=== PATIENT | male | born 1935 | race Caucasian/White ===

== ENCOUNTER 2017-02-23 19:56 | Inpatient (IN) | payer MEDICARE, OTHER ==
[2017-02-23] MEDS ORDERED: SODIUM CHLORIDE 0.9% 1,000 ML IV STA (20:15)
[2017-02-23] MEDS ORDERED: ACETAMINOPHEN TAB 325 MG TAB PO STA (20:15)
[2017-02-23] MEDS ORDERED: ONDANSETRON 4 MG/2 ML VIAL IVP STA (20:16)
[2017-02-23 20:33] LABS: Basophils % (A) 0 %; Eosinophils # (A) 0.1 k/uL (0-0.7); Eosinophils % (A) 1 %; HCT 36.9 % (39.0-53.0); HGB 11.4 gm/dL (13.0-17.5); Hypochromasia Slight; Lymphocytes # (A) 0.8 k/uL (1.0-4.8); Lymphocytes % (A) 8 %; MCH 26.8 pg (25.0-35.0); MCV 86.3 fL (80.0-100.0); Mean Platelet Volume 8.2; Monocytes # (A) 0.3 k/uL (0-1.0); Monocytes % (A) 3 %; Neutrophils # (A) 8.7 k/uL (1.3-7.7); Neutrophils % (A) 87 %; Platelet Count 226 k/uL (150-450); RBC 4.28 m/uL (4.30-5.90); RDW 15.3 % (11.5-15.5)
[2017-02-23 20:49] LABS: ALT 36 U/L (21-72); AST 25 U/L (17-59); Albumin 3.4 g/dL (3.5-5.0); Alkaline Phosphatase 60 U/L (38-126); Anion Gap 9 mmol/L; Blood Urea Nitrogen 17 mg/dL (9-20); Calcium 8.3 mg/dL (8.4-10.2); Carbon Dioxide 24 mmol/L (22-30); Chloride 102 mmol/L (98-107); Glucose 117 mg/dL (74-99); Magnesium 1.9 mg/dL (1.6-2.3); Potassium 4.4 mmol/L (3.5-5.1); Sodium 135 mmol/L (137-145); Total Bilirubin 0.8 mg/dL (0.2-1.3); Total Protein 6.4 g/dL (6.3-8.2)
--- NOTE | 2017-02-23 21:33 | ED ---
General Adult HPI - General Chief complaint: Nausea/Vomiting/Diarrhea Stated complaint: Nausea/Vomiting Time Seen by Provider: 02/23/17 19:58 Source: patient, EMS, RN notes reviewed Mode of arrival: EMS Limitations: no limitations - History of Present Illness Initial comments: This is an 81-year-old male presents emergency Department chief complaint of weakness. Patient states that he has not felt well today states that symptoms get worse throughout the day and felt that he needed be evaluated. Patient states he 1 episode of nausea and vomiting he states this is only after he tried taking aspirin for fever and states that one of the pills got stuck in his throat. He states he is nauseated. Denies any diarrhea, constipation, abdominal pain. Denies any chest pain or shortness of breath other than usual. 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 Patient states has had some episodes of nausea vomiting a few days ago. Patient states he has a slight cough but no the usual. Patient denies any ear pain, sore throat. - Related Data Home Medications Medication Instructions Recorded Confirmed Aspirin 81 mg PO HS 06/02/14 02/13/16 Citalopram Hydrobromide [CeleXA] 20 mg PO HS 06/02/14 02/13/16 Fluticasone/Salmeterol [Advair 1 puff INHALATION RT-BID 06/02/14 02/13/16 500-50 Diskus] Tamsulosin [Flomax] 0.4 mg PO HS 06/02/14 02/13/16 Tiotropium [place] [Spiriva] 2 puff INHALATION RT-DAILY 06/02/14 02/13/16 Simvastatin [Zocor] 10 mg PO HS 08/27/14 02/13/16 Multivit-Mins/Iron/Folic/Lycop 1 tab PO DAILY 06/19/15 02/13/16 [Centrum Men's Tablet] Ascorbic Acid [Vitamin C] 500 mg PO DAILY 02/13/16 02/13/16 Vitamin B Complex 1 cap PO DAILY 02/13/16 02/13/16 guaiFENesin-DM 600/30MG [Mucinex 1 tab PO DAILY 02/13/16 02/13/16 Dm] predniSONE 10 mg PO DAILY 02/13/16 02/13/16 Previous Rx's Medication Instructions Recorded Azithromycin [Zithromax Z-pack] 250 mg PO DIRECTED #6 tab 02/13/16 Levofloxacin [Levaquin] 500 mg PO DAILY #7 tab 02/13/16 predniSONE 20 mg PO BID #8 tab 02/13/16 Allergies Allergy/AdvReac Type Severity Reaction Status Date / Time No Known Allergies Allergy Verified 02/23/17 20:06 Review of Systems ROS Statement: Those systems with pertinent positive or pertinent negative responses have been documented in the HPI. ROS Other: All systems not noted in ROS Statement are negative. Past Medical History Past Medical History: Cancer, COPD, Hyperlipidemia, Pneumonia, Prostate Disorder Additional Past Medical History / Comment(s): hx prostate cancer HAD 28 RADIATION [place] AND SEED IMPLANTS, uses home O2. 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, SEED IMPLANTS FOR PROSTATE CA 2007 Past Anesthesia/Blood Transfusion Reactions: No Reported Reaction Past Psychological History: No Psychological Hx Reported Smoking Status: Former smoker Past Alcohol Use History: None Reported Past Drug Use History: None Reported - Past Family History Father Family Medical History: Cancer Additional Family Medical History / Comment(s): spine CA which spread to bone CA General Exam Limitations: no limitations General appearance: alert, in no apparent distress Head exam: Present: atraumatic, normocephalic, normal inspection Eye exam: Present: normal appearance, PERRL, EOMI. Absent: scleral icterus, conjunctival injection, periorbital swelling ENT exam: Present: normal exam, normal oropharynx (Dentures noted), mucous membranes moist, TM's normal bilaterally, normal external ear exam Neck exam: Present: normal inspection, full ROM. Absent: tenderness, meningismus, lymphadenopathy Respiratory exam: Present: normal lung sounds bilaterally. Absent: respiratory distress, wheezes, rales, rhonchi, stridor Cardiovascular Exam: Present: normal rhythm, tachycardia, normal heart sounds. Absent: systolic murmur, diastolic murmur, rubs, gallop, clicks GI/Abdominal exam: Present: soft, normal bowel sounds. Absent: distended, tenderness, guarding, rebound, rigid Neurological exam: Present: alert, oriented X3, CN II-XII intact Skin exam: Present: warm, dry, intact, normal color. Absent: rash Course Vital Signs 02/23/17 19:58 Temperature 101.4 F H Pulse Rate 111 H Respiratory 20 Rate Blood Pressure 125/70 O2 Sat by Pulse 92 L Oximetry EKG Findings - EKG Comments: EKG Findings:: EKG performed at 20:26 sinus tachycardia with a rate of 103 CA 144 QRS 88 QT/QTC 354/463 Medical Decision Making - Medical Decision Making 81-year-old male present emergency department for fever not feeling well. Patient's found to have right lobe pneumonia. Patient was started antibiotics, admitted For a consult as he has chronic respiratory issues. Patient is oxygen dependent. - Lab Data Result diagrams: 02/23/17 20:09 02/23/17 20:09 Lab Results 02/23/17 02/23/17 02/23/17 Range/Units 20:09 20:09 20:09 WBC 10.0 (3.8-10.6) k/uL RBC 4.28 L (4.30-5.90) m/uL Hgb 11.4 L (13.0-17.5) gm/dL Hct 36.9 L (39.0-53.0) % MCV 86.3 (80.0-100.0) fL MCH 26.8 (25.0-35.0) pg MCHC 31.0 (31.0-37.0) g/dL RDW 15.3 (11.5-15.5) % Plt Count 226 (150-450) k/uL Neutrophils % 87 % Lymphocytes % 8 % Monocytes % 3 % Eosinophils % 1 % Basophils % 0 % Neutrophils # 8.7 H (1.3-7.7) k/uL Lymphocytes # 0.8 L (1.0-4.8) k/uL Monocytes # 0.3 (0-1.0) k/uL Eosinophils # 0.1 (0-0.7) k/uL Basophils # 0.0 (0-0.2) k/uL Hypochromasia Slight Sodium 135 L (137-145) mmol/L Potassium 4.4 (3.5-5.1) mmol/L Chloride 102 (98-107) mmol/L Carbon Dioxide 24 (22-30) mmol/L Anion Gap 9 mmol/L BUN 17 (9-20) mg/dL Creatinine 0.70 (0.66-1.25) mg/dL Est GFR (MDRD) Af Amer >60 (>60 ml/min/1.73 sqM) Est GFR (MDRD) Non-Af >60 (>60 ml/min/1.73 sqM) Glucose 117 H (74-99) mg/dL Plasma Lactic Acid Giovanni (0.7-2.0) mmol/L Calcium 8.3 L (8.4-10.2) mg/dL Magnesium 1.9 (1.6-2.3) mg/dL Total Bilirubin 0.8 (0.2-1.3) mg/dL AST 25 (17-59) U/L ALT 36 (21-72) U/L Alkaline Phosphatase 60 (38-126) U/L Troponin I (0.000-0.034) ng/mL Total Protein 6.4 (6.3-8.2) g/dL Albumin 3.4 L (3.5-5.0) g/dL Influenza Type A RNA Not Detected (Not Detectd) Influenza Type B (PCR) Not Detected (Not Detectd) 02/23/17 02/23/17 Range/Units 20:09 20:09 WBC (3.8-10.6) k/uL RBC (4.30-5.90) m/uL Hgb (13.0-17.5) gm/dL Hct (39.0-53.0) % MCV (80.0-100.0) fL MCH (25.0-35.0) pg MCHC (31.0-37.0) g/dL RDW (11.5-15.5) % Plt Count (150-450) k/uL Neutrophils % % Lymphocytes % % Monocytes % % Eosinophils % % Basophils % % Neutrophils # (1.3-7.7) k/uL Lymphocytes # (1.0-4.8) k/uL Monocytes # (0-1.0) k/uL Eosinophils # (0-0.7) k/uL Basophils # (0-0.2) k/uL Hypochromasia Sodium (137-145) mmol/L Potassium (3.5-5.1) mmol/L Chloride (98-107) mmol/L Carbon Dioxide (22-30) mmol/L Anion Gap mmol/L BUN (9-20) mg/dL Creatinine (0.66-1.25) mg/dL Est GFR (MDRD) Af Amer (>60 ml/min/1.73 sqM) Est GFR (MDRD) Non-Af (>60 ml/min/1.73 sqM) Glucose (74-99) mg/dL Plasma Lactic Acid Giovanni 1.0 (0.7-2.0) mmol/L Calcium (8.4-10.2) mg/dL Magnesium (1.6-2.3) mg/dL Total Bilirubin (0.2-1.3) mg/dL AST (17-59) U/L ALT (21-72) U/L Alkaline Phosphatase (38-126) U/L Troponin I <0.012 (0.000-0.034) ng/mL Total Protein (6.3-8.2) g/dL Albumin (3.5-5.0) g/dL Influenza Type A RNA (Not Detectd) Influenza Type B (PCR) (Not Detectd) Disposition Clinical Impression: Pneumonia, Hypoxia, Acute exacerbation of chronic obstructive airways disease Disposition: ADMITTED IP TO THIS HOSP Condition: Fair Referrals: Lily Carolina MD [Primary Care Provider] - 1-2 days
--- NOTE | 2017-02-23 21:43 | XR ---
EXAMINATION TYPE: XR chest 2V DATE OF EXAM: 02/23/2017 COMPARISON: Chest x-ray February 13, 2016 HISTORY: History of COPD with cough and fever. TECHNIQUE: Frontal and lateral views of the chest are obtained. FINDINGS: There is advanced emphysematous change with new patchy right basilar opacity. There are s cattered areas of scarring. No large pleural effusion or pneumothorax is seen bilaterally. The cardia c silhouette size is within normal limits. The osseous structures are demineralized. IMPRESSION: Advanced emphysematous change with new right basilar infiltrate and/or atelectasis.
[2017-02-23] MEDS ORDERED: PNEUMONIA PROTOCOL UTILIZED 1 EACH MISC PO PRN (22:21)
[2017-02-23] MEDS ORDERED: LEVOFLOXACIN 750MG-D5W PMX 750 MG in DEXTROSE/WATER 1 150ML.BAG IVPB STA (22:21)
[2017-02-23] MEDS ORDERED: IPRATROPIUM-ALBUTEROL 3 ML NEB INHALATION PRN (22:21)
[2017-02-23] MEDS ORDERED: methylPREDNISolone SOD SUCCI 125 MG/2 ML VIAL IV STA (22:23)
[2017-02-24 01:27] LABS: Appearance,Urine Clear (Clear); Bilirubin,Urine Negative (Negative); Blood,Urine Negative (Negative); Color,Urine Yellow; Glucose,Urine (UA) Negative (Negative); Ketones,Urine Negative (Negative); Leukocyte Esterase,Urine Negative (Negative); Nitrite,Urine Negative (Negative); Protein,Urine Trace (Negative); Specific Gravity,Urine 1.022 (1.001-1.035)
--- NOTE | 2017-02-24 07:13 | XR ---
EXAMINATION TYPE: XR chest 2V DATE OF EXAM: 02/24/2017 HISTORY: pneumonia. REFERENCE: Previous study dated 02/23/2017. FINDINGS: The lungs are overinflated. There is chronic interstitial change. There is right basilar in filtrate. This is improved slightly from yesterday study. There is blunting of the right CP angle. I could not exclude a tiny right effusion. The heart is not enlarged. IMPRESSION: 1. COPD. 2. INTERSTITIAL FIBROSIS. 3. RESOLVING RIGHT BASILAR INFILTRATE VERSUS TINY ASSOCIATED EFFUSION.
[2017-02-24] MEDS ORDERED: ALPRAZolam 0.25 MG TAB PO PRN (10:38)
[2017-02-24] MEDS ORDERED: TEMAZEPAM 15 MG CAP PO PRN (10:38)
[2017-02-24] MEDS ORDERED: HYDROcodone/APAP 5-325MG 1 EACH TAB PO PRN (10:38)
[2017-02-24] MEDS ORDERED: OSELTAMIVIR 75 MG CAP PO SCH (11:00)
[2017-02-24] MEDS: IPRATROPIUM-ALBUTEROL 3 ML NEB INHALATION SCH ×3 (11:12→19:46)
[2017-02-24] MEDS ORDERED: IPRATROPIUM 0.5 MG/2.5 ML NEBU INHALATION SCH (12:00)
[2017-02-24] MEDS: guaiFENesin-DM 600/30MG 1 EACH TAB.ER.12H PO SCH (14:06)
[2017-02-24] MEDS: INSULIN ASPART 100 UNIT/ML 1 ML 10 ML VIAL SQ SCH ×3 (14:13→21:29)
--- NOTE | 2017-02-24 14:54 | P.CNPUL ---
History of Present Illness Consult date: 02/24/17 Reason for consult: COPD History of present illness: 81-year-old male patient with known history of COPD, coming in for increased shortness of breath and symptoms typical of an acute COPD exacerbation. He was screened for influenza and the results of been negative. The patient was concerned about underlying pneumonia it's chest x-ray did not show any acute pulmonary infiltrates. Was admitted for a 11 acute COPD exacerbation. No angina. No pleurisy. No hemoptysis. No hypotension. No change in mental status. He has history of [id number] smoking history and he quit smoking many years back. No sick contacts. No travel history. He has had a benign tumor that was resected surgically many years back. No history of any thoracic or lung malignancy. He has been maintained on a combination of Advair and Spiriva. He has also an nebulizer at home. His FEV1 is nor that of 45% of predicted at baseline. Review of Systems Constitutional: Reports fatigue Eyes: denies blurred vision, denies bulging eye, denies decreased vision Ears: deny: decreased hearing, ear discharge, earache Ears, nose, mouth and throat: Denies headache, Denies sore throat Cardiovascular: Reports decreased exercise tolerance, Reports dyspnea on exertion, Reports shortness of breath Respiratory: Reports cough, Reports dyspnea, Reports wheezing Gastrointestinal: Denies abdominal pain, Denies diarrhea, Denies nausea, Denies vomiting Genitourinary: Reports as per HPI Musculoskeletal: Denies myalgias Musculoskeletal: absent: ankle pain, ankle stiffness, ankle swelling Integumentary: Reports as per HPI Neurological: Denies numbness, Denies weakness Past Medical History Past Medical History: Cancer, COPD, Pneumonia, Prostate Disorder Additional Past Medical History / Comment(s): COPD with an FEV1 of 45% of predicted baseline, prostate cancer treated by radiation therapy, previous hospital physician for COPD exacerbation, hyperlipidemia, history of anxiety/ depression History of Any Multi-Drug Resistant Organisms: None Reported Past Surgical History: Appendectomy Additional Past Surgical History / Comment(s): pilonidal cyst, 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, SEED IMPLANTS FOR PROSTATE CA 2007 Past Anesthesia/Blood Transfusion Reactions: No Reported Reaction Past Psychological History: No Psychological Hx Reported Smoking Status: Former smoker Past Alcohol Use History: None Reported Additional Past Alcohol Use History / Comment(s): SMOKED X 40 YEARS 2PPD QUIT 1991 Past Drug Use History: None Reported - Past Family History Father Family Medical History: Cancer Additional Family Medical History / Comment(s): spine CA which spread to bone CA Medications and Allergies Home Medications Medication Instructions Recorded Confirmed Type Aspirin 81 mg PO HS 06/02/14 02/24/17 History Citalopram Hydrobromide [CeleXA] 40 mg PO HS 06/02/14 02/24/17 History Fluticasone/Salmeterol [Advair 1 puff INHALATION RT-BID 06/02/14 02/24/17 History 500-50 Diskus] Tamsulosin [Flomax] 0.4 mg PO HS 06/02/14 02/24/17 History Tiotropium [place] [Spiriva] 1 cap INHALATION RT-DAILY 06/02/14 02/24/17 History Simvastatin [Zocor] 10 mg PO HS 08/27/14 02/24/17 History Multivit-Mins/Iron/Folic/Lycop 1 tab PO DAILY 06/19/15 02/24/17 History [Centrum Men's Tablet] Ascorbic Acid [Vitamin C] 500 mg PO DAILY 02/13/16 02/24/17 History guaiFENesin-DM 600/30MG [Mucinex 1 tab PO DAILY 02/13/16 02/24/17 History Dm] predniSONE 10 mg PO DAILY 02/13/16 02/24/17 History Albuterol Nebulized [Ventolin 2.5 mg INHALATION RT-Q4H PRN 02/24/17 02/24/17 History Nebulized] Calcium Carbonate [Calcium] 600 mg PO DAILY 02/24/17 02/24/17 History Melatonin 3 mg PO HS 02/24/17 02/24/17 History Oseltamivir [Tamiflu] 75 mg PO Q12HR 02/24/17 02/24/17 History busPIRone HCl [Buspar] 5 mg PO BID 02/24/17 02/24/17 History Allergies Allergy/AdvReac Type Severity Reaction Status Date / Time No Known Allergies Allergy Verified 02/24/17 08:19 Physical Exam Vitals: Vital Signs Temp Pulse Pulse Resp BP BP Pulse Ox 02/24/17 11:30 112 H 02/24/17 11:14 104 H 02/24/17 08:00 109 H 17 02/24/17 07:35 108 H 02/24/17 07:27 108 H 02/24/17 07:00 97.9 F 88 16 98/56 94 L 02/23/17 23:32 98.2 F 109 H 17 118/58 92 L 02/23/17 22:39 98.3 F 102 H 24 135/65 96 02/23/17 19:58 101.4 F H 111 H 20 125/70 92 L Intake and Output 02/23/17 02/24/17 02/24/17 22:59 06:59 14:59 Intake Total 150 360 Balance 150 360 Intake: IV 150 Levofloxacin 750Mg-D5w 150 Pmx 750 mg In Dextrose/ Water 1 150ml.bag @ 100 mls/hr IVPB ONCE STA Rx#: [id number] Oral 360 Other: Voiding Method Urinal Urinal # Voids 2 Weight 77.111 kg The patient appeared well nourished and normally developed. Vital signs as documented. Head exam is unremarkable. No scleral icterus or corneal arcus noted. Neck is without jugular venous distension, thyromegaly, or carotid bruits. Carotid upstrokes are brisk bilaterally. Lungs are nourished breath sounds along with some scattered expiratory wheezes throughout the lung pichardo bilaterally Cardiac exam reveals the PMI to be normally sized and situated. Rhythm is regular. First and second heart sounds normal. No murmurs, rubs or gallops. Abdominal exam reveals normal bowel sounds, no masses, no organomegaly and no aortic enlargement. Extremities are nonedematous and both femoral and pedal pulses are normal.Examination of the skin revealed no evidence of significant rashes, suspicious appearing nevi or other concerning lesions. Neurologically the patient is awake and alert and there is no focal logical deficits. Results - Laboratory Findings CBC and BMP: 02/23/17 20:09 02/23/17 20:09 Abnormal lab findings: Abnormal Labs 02/23/17 02/23/17 02/24/17 20:09 20:09 00:12 RBC 4.28 L Hgb 11.4 L Hct 36.9 L Neutrophils # 8.7 H Lymphocytes # 0.8 L Sodium 135 L Glucose 117 H Calcium 8.3 L Albumin 3.4 L Urine Protein Trace H - Diagnostic Findings Chest x-ray: image reviewed Assessment and Plan Plan: Assessment 1 acute COPD exacerbation 2 limited right basilar infiltration, an underlying pneumonia cannot be completely excluded 3 COPD severe with an FEV1 of 45% predicted at baseline 4 prostate cancer treated by radiation therapy 5 chronic anxiety/depression 6 hyperlipidemia maintained on Zocor Plan DuoNeb neb last treatment [id number]. Levaquin as empiric antibiotic coverage. IV Solu-Medrol. Influenza screen was negative and the Tamiflu can be discontinued. We'll continue to follow.
--- NOTE | 2017-02-24 17:15 | HP ---
HISTORY AND PHYSICAL DATE OF ADMISSION: 02/24/2017 CHIEF COMPLAINT: Shortness of breath and cough. HISTORY OF PRESENT ILLNESS: This 81-year-old gentleman with a past medical history of COPD, history of pneumonia, history of sepsis, history of FEV1 of 45%, history of prostate cancer, being followed by Dr. Carolina in the outpatient setting, not feeling well over the past several days, apparently the patient's was also sick with vomiting, cough and sputum with flu and subsequently patient was very sick and patient empirically started on Tamiflu. Currently patient increased shortness of breath and cough and sputum and GI symptoms and patient admitted to the hospital for further evaluation and treatment. Bilateral pneumonia right more the left was suspected. Patient started on broad-spectrum IV antibiotics. There is no history of fever, rigors or chills. No history of headache, loss of consciousness, seizures. PAST MEDICAL HISTORY: COPD, pneumonia, prostate disorder, appendectomy. MEDICATIONS: Prior to admission include home medications are: 1. Calcium 600 mg p.o. daily. 2. Ventolin 2.5 q.4h p.r.n. 3. Prednisone 10 mg daily. 4. Mucinex 1 tab p.o. b.i.d. 5. Buspar 5 mg p.o. b.i.d. 6. Spiriva 1 puff daily. 7. Flomax 0.4 q.h.s. 8. Zocor 10 mg q.h.s. 9. Tamiflu 75 mg b.i.d. 10.Centrum 1 p.o. daily. 11.Melatonin 3 mg q.h.s. 12.Advair 500/50 1 puff b.i.d. 13.Celexa 40 mg q.h.s. 14.Aspirin 81 mg. 15.Vitamin C 500 mg daily. ALLERGIES: None. FAMILY HISTORY: History of cancer, spine cancer, suspected bone cancer. SOCIAL HISTORY: Previous history of smoking. No history of current smoking or alcohol intake. The patient has about 80 pack-years of smoking. REVIEW OF SYSTEMS: ENT: Diminished hearing and diminished vision. CARDIOVASCULAR: As mentioned earlier. Respiratory: As mentioned earlier. GI no nausea or vomiting. : No dysuria or retention. Nervous system: No numbness or weakness. Allergy/Immunology: No asthma or hayfever. Musculoskeletal: As mentioned earlier. Hematology/Oncology: No history of anemia. As mentioned earlier. Endocrine: No history of diabetes or hypothyroidism. Constitutional: As mentioned earlier. Dermatology: Negative. Rheumatology: Negative. Psychiatric: As mentioned earlier. PHYSICAL EXAMINATION: The patient is alert and oriented times three. The pulse is 108. The blood pressure is 98/56, respiration 16, temperature 97.9, pulse ox 94% on 4 L. HEENT: Conjunctivae normal. Oral mucosa moist. Neck is no jugular venous distention. No carotid bruit. No lymph node enlargement. Cardiovascular is S1-S2. No S3, no S4. Respiratory: Breath sounds diminished in the bases. Bilateral scattered rhonchi and crackles. Expiratory wheezing also present. ABDOMEN: Soft, nontender. No mass palpable. Legs no edema. No swelling. Nervous system: Higher functions as mentioned earlier, moves all 4 limbs, no focal motor or sensory deficits. Lymphatics: No lymph nodes palpable in the neck, axillae or groin. Skin no ulcer, rash, or bleeding. LABS: WBC 10, hemoglobin 7.4, glucose 117, albumin 3.4. ASSESSMENT: 1. Chronic obstructive pulmonary disease acute exacerbation with bibasilar pneumonia possibly gram-negative right more than the left. 2. Anemia normocytic. 3. History of possible recent flu. 4. Hyponatremia. 5. History of pneumonia and sepsis previously. 6. History of chronic obstructive pulmonary disease with FEV1 of 44% of the baseline predicted. 7. History of prostate cancer status post radiation. 8. History of hyperlipidemia. 9. History of anxiety and depression. 10.History of pilonidal sinus. 11.Remote history of nicotine dependence. RECOMMENDATIONS AND DISCUSSION: This 81-year-old gentleman who presented with multiple complex medical issues, we will monitor the patient closely. Continue the current medications, symptomatic treatment. We will optimize the bronchodilator treatment, IV antibiotics. I would also recommend IV steroids and monitor. DVT prophylaxis. Consult Dr. Dennison. Resume the home medications. Proton pump inhibitors. Guarded prognosis because of multiple complex medical issues. Obtain cultures. Discussed with the at the bedside. Understands and agrees. Further recommendations to follow. MMODL / IJN: [id number] /
[2017-02-24] MEDS: methylPREDNISolone SOD SUCCI 125 MG/2 ML VIAL IV SCH ×2 (17:40→23:38)
[2017-02-24 17:54] LABS: Glucose,Whole Blood 117 mg/dL (75-99)
[2017-02-24] MEDS ORDERED: methylPREDNISolone SOD SUCCI 125 MG/2 ML VIAL IV SCH (18:00)
[2017-02-24] MEDS: ASCORBIC ACID 500 MG TAB PO SCH (18:17)
[2017-02-24] MEDS: CALCIUM CARBONATE 500 MG CHEWABLE PO SCH (18:41)
[2017-02-24] MEDS: BUDESONIDE 1 MG/2 ML NEBU INHALATION SCH (19:45)
[2017-02-24] MEDS: FORMOTEROL FUMARATE 20 MCG/2 ML NEBU INHALATION SCH (19:45)
[2017-02-24 20:07] LABS: Hemoglobin A1C 4.9 % (4.0-6.0)
[2017-02-24 20:27] LABS: Glucose,Whole Blood 131 mg/dL (75-99)
[2017-02-24] MEDS ORDERED: busPIRone HCl 5 MG TAB PO SCH (21:00)
[2017-02-24] MEDS: LEVOFLOXACIN 750MG-D5W PMX 750 MG in DEXTROSE/WATER 1 150ML.BAG IVPB SCH (21:25)
[2017-02-24] MEDS: CITALOPRAM HYDROBROMIDE 20 MG TAB PO SCH (21:26)
[2017-02-24] MEDS: TAMSULOSIN 0.4 MG CAP.ER.24H PO SCH (21:26)
[2017-02-24] MEDS: ATORVASTATIN 10 MG TAB PO SCH (21:27)
[2017-02-24] MEDS: ASPIRIN 81 MG PO SCH (21:27)
[2017-02-24] MEDS: MELATONIN 3 MG TABLET PO SCH (21:27)
[2017-02-24] MEDS: HEPARIN SODIUM,PORCINE 5,000 UNIT/ML 1 ML VIAL SQ SCH (21:27)
[2017-02-24] MEDS ORDERED: SENNOSIDES 8.6 MG TAB PO PRN (21:32)
[2017-02-25 07:32] LABS: Glucose,Whole Blood 127 mg/dL (75-99)
[2017-02-25 07:41] LABS: Anisocytosis Slight; Basophils % (A) 0 %; Eosinophils % (A) 0 %; HCT 34.3 % (39.0-53.0); HGB 10.5 gm/dL (13.0-17.5); Hypochromasia Moderate; Lymphocytes # (A) 0.6 k/uL (1.0-4.8); Lymphocytes % (A) 7 %; MCH 26.6 pg (25.0-35.0); MCHC 30.7 g/dL (31.0-37.0); MCV 86.8 fL (80.0-100.0); Mean Platelet Volume 7.8; Monocytes # (A) 0.2 k/uL (0-1.0); Monocytes % (A) 3 %; Neutrophils # (A) 6.7 k/uL (1.3-7.7); Neutrophils % (A) 89 %; Platelet Count 221 k/uL (150-450); RBC 3.95 m/uL (4.30-5.90); RDW 16.6 % (11.5-15.5); WBC 7.5 k/uL (3.8-10.6)
[2017-02-25] MEDS: FORMOTEROL FUMARATE 20 MCG/2 ML NEBU INHALATION SCH ×2 (07:51→19:52)
[2017-02-25] MEDS: BUDESONIDE 1 MG/2 ML NEBU INHALATION SCH ×2 (07:51→19:52)
[2017-02-25] MEDS: IPRATROPIUM-ALBUTEROL 3 ML NEB INHALATION SCH ×4 (07:51→19:52)
[2017-02-25 08:12] LABS: Anion Gap 7 mmol/L; Blood Urea Nitrogen 16 mg/dL (9-20); Calcium 8.6 mg/dL (8.4-10.2); Carbon Dioxide 29 mmol/L (22-30); Chloride 101 mmol/L (98-107); Glucose 122 mg/dL (74-99); Potassium 4.4 mmol/L (3.5-5.1); Sodium 137 mmol/L (137-145)
[2017-02-25] MEDS: CALCIUM CARBONATE 500 MG CHEWABLE PO SCH (08:21)
[2017-02-25] MEDS: PANTOPRAZOLE 40 MG TABLET PO SCH (08:21)
[2017-02-25] MEDS: guaiFENesin-DM 600/30MG 1 EACH TAB.ER.12H PO SCH (08:21)
[2017-02-25] MEDS: ASCORBIC ACID 500 MG TAB PO SCH (08:21)
[2017-02-25] MEDS: busPIRone HCl 5 MG TAB PO SCH ×2 (08:21→16:46)
[2017-02-25] MEDS: methylPREDNISolone SOD SUCCI 125 MG/2 ML VIAL IV SCH ×3 (08:21→23:23)
[2017-02-25] MEDS: HEPARIN SODIUM,PORCINE 5,000 UNIT/ML 1 ML VIAL SQ SCH ×2 (08:22→21:12)
[2017-02-25] MEDS: INSULIN ASPART 100 UNIT/ML 1 ML 10 ML VIAL SQ SCH ×4 (08:23→21:11)
[2017-02-25] MEDS ORDERED: MAGNESIUM HYDROXIDE 2,400 MG/10 ML CUP PO PRN (11:12)
[2017-02-25] MEDS ORDERED: SENNOSIDES 8.6 MG TAB PO PRN (11:13)
[2017-02-25 11:16] LABS: Glucose,Whole Blood 141 mg/dL (75-99)
[2017-02-25] MEDS: MULTIVITAMINS, THERA 1 EACH TAB PO SCH (13:00)
--- NOTE | 2017-02-25 13:15 | P.PN ---
Subjective Progress Note Date: 02/25/17 Principal diagnosis: Acute COPD exacerbation, limited right basilar infiltration, pneumonia cannot be excluded 81-year-old male patient with known history of COPD, coming in for increased shortness of breath and symptoms typical of an acute COPD exacerbation. He was screened for influenza and the results of been negative. The patient was concerned about underlying pneumonia it's chest x-ray did not show any acute pulmonary infiltrates. Was admitted for a 11 acute COPD exacerbation. No angina. No pleurisy. No hemoptysis. No hypotension. No change in mental status. He has history of [id number]-svxj smoking history and he quit smoking many years back. No sick contacts. No travel history. He has had a benign tumor that was resected surgically many years back. No history of any thoracic or lung malignancy. He has been maintained on a combination of Advair and Spiriva. He has also an nebulizer at home. His FEV1 is nor that of 45% of predicted at baseline. On 02/25/2017 patient is seen in follow-up on medical surgical floor. Doing very well, denies any worsening dyspnea, on 4 L of oxygen per nasal cannula with O2 sat is 94-96%. Afebrile in the last 24 hours, hemodynamically stable. Lung sounds are generally diminished, with a few faint expiratory wheezes bilaterally. Patient has been ambulating to the bathroom without his oxygen, tolerating activity well. Yesterday's chest x-ray showed COPD, interstitial fibrosis and resolving right basilar infiltrate versus tiny associated effusion. On today's blood work, there is no evidence of leukocytosis, WBC 7.5 , hemoglobin is 10.5, no electrolyte abnormality, renal profile is normal, with BUN of 16, and creatinine 0.68. Influenza screen was negative. Objective - Vital Signs Vital signs: Vital Signs Temp 97.5 F L 02/25/17 07:00 Pulse 102 H 02/25/17 11:23 Resp 18 02/25/17 08:00 BP 115/57 02/25/17 07:00 Pulse Ox 94 L 02/25/17 07:54 Intake & Output 02/24/17 02/25/17 02/25/17 18:59 06:59 18:59 Intake Total 360 300 Output Total 225 225 Balance 360 75 -225 Intake: IV 300 Levofloxacin 750Mg-D5w 300 Pmx 750 mg In Dextrose/ Water 1 150ml.bag @ 100 mls/hr IVPB Q24H [facility] Rx#: [id number] Oral 360 Output: Urine 225 225 Other: Voiding Method Urinal Toilet Toilet # Voids 2 2 - Exam GENERAL EXAM: Alert, active, comfortable in no apparent distress. HEAD: Normocephalic/atraumatic. EYES: Normal reaction of pupils, equal size. Conjunctiva pink, sclera white. NOSE: Clear with pink turbinates. THROAT: No erythema or exudates. NECK: No masses, no JVD, no thyroid enlargement, no adenopathy. CHEST: No chest wall deformity. Symmetrical expansion. LUNGS: Equal air entry with a faint few scattered wheezes CVS: Regular rate and rhythm, normal S1 and S2, no gallops, no murmurs, no rubs ABDOMEN: Soft, nontender. No hepatosplenomegaly, normal bowel sounds, no guarding or rigidity. EXTREMITIES: No clubbing, no edema, no cyanosis, 2+ pulses and upper and lower extremities. MUSCULOSKELETAL: Muscle strength and tone normal. SPINE: No scoliosis or deformity SKIN: No rashes CENTRAL NERVOUS SYSTEM: Alert and oriented -3. No focal deficits, tone is normal in all 4 extremities. PSYCHIATRIC: Alert and oriented -3. Appropriate affect. Intact judgment and insight. - Labs CBC & Chem 7: 02/25/17 07:07 02/25/17 07:07 Labs: Abnormal Lab Results - Last 24 Hours (Table) 02/24/17 02/24/17 02/25/17 Range/Units 17:53 20:25 07:07 RBC 3.95 L (4.30-5.90) m/uL Hgb 10.5 L (13.0-17.5) gm/dL Hct 34.3 L (39.0-53.0) % MCHC 30.7 L (31.0-37.0) g/dL RDW 16.6 H (11.5-15.5) % Lymphocytes # 0.6 L (1.0-4.8) k/uL Glucose (74-99) mg/dL POC Glucose (mg/dL) 117 H 131 H (75-99) mg/dL 02/25/17 02/25/17 02/25/17 Range/Units 07:07 07:20 11:14 RBC (4.30-5.90) m/uL Hgb (13.0-17.5) gm/dL Hct (39.0-53.0) % MCHC (31.0-37.0) g/dL RDW (11.5-15.5) % Lymphocytes # (1.0-4.8) k/uL Glucose 122 H (74-99) mg/dL POC Glucose (mg/dL) 127 H 141 H (75-99) mg/dL Microbiology - Last 24 Hours (Table) 02/24/17 00:12 Urine Culture - Final Urine,Voided 02/24/17 20:09 Gram Stain - Preliminary Sputum 02/23/17 20:09 Blood Culture - Preliminary Blood No Growth after 24 hours Assessment and Plan Plan: Assessment 1 acute COPD exacerbation 2 limited right basilar infiltration, an underlying pneumonia cannot be completely excluded 3 COPD severe with an FEV1 of 45% predicted at baseline 4 prostate cancer treated by radiation therapy 5 chronic anxiety/depression 6 hyperlipidemia maintained on Zocor Plan Patient is improving, no worsening shortness of breath, tolerating activity without significant respiratory distress. Continue DuoNeb neb last treatment [id number]. Levaquin as empiric antibiotic coverage. IV Solu-Medrol. We 'll continue to follow. I performed a history & physical examination of the patient and discussed their management with my nurse practitioner, Loulou Cross. I reviewed the nurse practitioner's note and agree with the documented findings and plan of care. Lung sounds are positive for a few faint wheezes. The findings and the impression was discussed with the patient. I attest to the documentation by the nurse practitioner. Time with Patient: Less than 30
[2017-02-25 17:19] LABS: Glucose,Whole Blood 125 mg/dL (75-99)
[2017-02-25 20:28] LABS: Glucose,Whole Blood 127 mg/dL (75-99)
[2017-02-25] MEDS: CITALOPRAM HYDROBROMIDE 20 MG TAB PO SCH (21:12)
[2017-02-25] MEDS: TAMSULOSIN 0.4 MG CAP.ER.24H PO SCH (21:13)
[2017-02-25] MEDS: ATORVASTATIN 10 MG TAB PO SCH (21:13)
[2017-02-25] MEDS: ASPIRIN 81 MG PO SCH (21:14)
[2017-02-25] MEDS: LEVOFLOXACIN 750MG-D5W PMX 750 MG in DEXTROSE/WATER 1 150ML.BAG IVPB SCH (21:18)
[2017-02-25] MEDS: MELATONIN 3 MG TABLET PO SCH (23:23)
[2017-02-26 07:04] LABS: Glucose,Whole Blood 143 mg/dL (75-99)
[2017-02-26 08:03] VITALS: BP 92/51; RESP 18; TEMP 98
[2017-02-26] MEDS: PANTOPRAZOLE 40 MG TABLET PO SCH (08:08)
[2017-02-26] MEDS: guaiFENesin-DM 600/30MG 1 EACH TAB.ER.12H PO SCH (08:09)
[2017-02-26] MEDS: INSULIN ASPART 100 UNIT/ML 1 ML 10 ML VIAL SQ SCH ×2 (08:09→12:41)
[2017-02-26] MEDS: CALCIUM CARBONATE 500 MG CHEWABLE PO SCH (08:09)
[2017-02-26] MEDS: HEPARIN SODIUM,PORCINE 5,000 UNIT/ML 1 ML VIAL SQ SCH (08:09)
[2017-02-26] MEDS: methylPREDNISolone SOD SUCCI 125 MG/2 ML VIAL IV SCH (08:09)
[2017-02-26] MEDS: busPIRone HCl 5 MG TAB PO SCH (08:10)
[2017-02-26] MEDS: FORMOTEROL FUMARATE 20 MCG/2 ML NEBU INHALATION SCH (08:18)
[2017-02-26] MEDS: BUDESONIDE 1 MG/2 ML NEBU INHALATION SCH (08:18)
[2017-02-26] MEDS: IPRATROPIUM-ALBUTEROL 3 ML NEB INHALATION SCH ×2 (08:19→11:29)
[2017-02-26 08:33] LABS: Basophils % (A) 0 %; Eosinophils % (A) 0 %; HCT 35.4 % (39.0-53.0); HGB 10.6 gm/dL (13.0-17.5); Hypochromasia Moderate; Lymphocytes % (A) 12 %; MCH 26.5 pg (25.0-35.0); MCHC 30.1 g/dL (31.0-37.0); MCV 88.2 fL (80.0-100.0); Mean Platelet Volume 7.3; Monocytes # (A) 0.3 k/uL (0-1.0); Monocytes % (A) 3 %; Neutrophils # (A) 7.1 k/uL (1.3-7.7); Neutrophils % (A) 85 %; Platelet Count 235 k/uL (150-450); RBC 4.01 m/uL (4.30-5.90); RDW 15.2 % (11.5-15.5); WBC 8.4 k/uL (3.8-10.6)
[2017-02-26 08:56] LABS: Anion Gap 9 mmol/L; Blood Urea Nitrogen 22 mg/dL (9-20); Calcium 8.7 mg/dL (8.4-10.2); Carbon Dioxide 30 mmol/L (22-30); Chloride 103 mmol/L (98-107); Glucose 131 mg/dL (74-99); Potassium 5.7 mmol/L (3.5-5.1); Sodium 142 mmol/L (137-145)
--- NOTE | 2017-02-26 11:11 | PN ---
PROGRESS NOTE DATE OF SERVICE: 02/25/2017 This 81-year-old gentleman who was admitted with shortness of breath and cough also suspected to have bibasilar pneumonia. The patient is being closely monitored. Dr. Warren is following the patient closely. No chest pain or palpitations. No fever. PHYSICAL EXAMINATION: Pulse is 105, blood pressure 129/60, respirations 20, temperature 98.3, pulse ox 91% on 4 L. HEENT: Conjunctivae normal. NECK: No jugular venous distention. CARDIOVASCULAR: S1 and S2 muffled. RESPIRATORY: Breath sounds diminished at the bases. Bilateral scattered rhonchi. No crackles. Abdomen is soft, nontender. LEGS: No edema. NERVOUS SYSTEM: No focal deficits. LABS: WBC 7.5, hemoglobin 10.5. Accu-Cheks are noted. ASSESSMENT: 1. Chronic obstructive pulmonary disease acute exacerbation with bibasilar pneumonia possibly gram-negative right more than the left. 2. Anemia normocytic. 3. History of possible recent flu. 4. Hyponatremia. 5. History of pneumonia and sepsis previously. 6. History of chronic obstructive pulmonary disease with FEV1 of 44% of the baseline predicted. 7. History of prostate cancer and radiation. 8. History of hyperlipidemia. 9. History of anxiety and depression. 10.History of pilonidal sinus. 11.Remote history of nicotine dependence. DISCUSSION AND RECOMMENDATIONS: Recommend to continue current medication, continue with monitoring and symptomatic treatment. Otherwise at this time, I will monitor the patient closely. Guarded prognosis because of multiple complex medical issues. Further recommendations to follow. Continue the antibiotics. MMODL / IJN: [id number] /
[2017-02-26 11:33] VITALS: PULSE 98
[2017-02-26 11:48] LABS: Glucose,Whole Blood 141 mg/dL (75-99)
[2017-02-26] MEDS: MULTIVITAMINS, THERA 1 EACH TAB PO SCH (12:41)
--- NOTE | 2017-02-26 15:24 | P.PN ---
Subjective Progress Note Date: 02/26/17 Principal diagnosis: Acute COPD exacerbation, limited right basilar infiltration, pneumonia cannot be excluded 81-year-old male patient with known history of COPD, coming in for increased shortness of breath and symptoms typical of an acute COPD exacerbation. He was screened for influenza and the results of been negative. The patient was concerned about underlying pneumonia it's chest x-ray did not show any acute pulmonary infiltrates. Was admitted for a 11 acute COPD exacerbation. No angina. No pleurisy. No hemoptysis. No hypotension. No change in mental status. He has history of 24-yaqw-vzgl smoking history and he quit smoking many years back. No sick contacts. No travel history. He has had a benign tumor that was resected surgically many years back. No history of any thoracic or lung malignancy. He has been maintained on a combination of Advair and Spiriva. He has also an nebulizer at home. His FEV1 is nor that of 45% of predicted at baseline. On 02/25/2017 patient is seen in follow-up on medical surgical floor. Doing very well, denies any worsening dyspnea, on 4 L of oxygen per nasal cannula with O2 sat is 94-96%. Afebrile in the last 24 hours, hemodynamically stable. Lung sounds are generally diminished, with a few faint expiratory wheezes bilaterally. Patient has been ambulating to the bathroom without his oxygen, tolerating activity well. Yesterday's chest x-ray showed COPD, interstitial fibrosis and resolving right basilar infiltrate versus tiny associated effusion. On today's blood work, there is no evidence of leukocytosis, WBC 7.5 , hemoglobin is 10.5, no electrolyte abnormality, renal profile is normal, with BUN of 16, and creatinine 0.68. Influenza screen was negative. On 02/26/2017 patient seen in follow-up. Doing very well, vital signs are stable, afebrile, hemodynamically stable, he is on 4 L of oxygen per nasal cannula, normally he wears 3 L/m, however when this was weaned down to 3 patient does desaturate in the mid 80s. He denies any significant dyspnea, lung sounds are clear to auscultation, no rhonchi no wheezes were noted. Microbiology was positive for gram-negative bacilli, patient will be discharged home on Levaquin and prednisone taper. Continue on his maintenance inhalers and breathing treatments. Follow-up with Dr. Dennison in the office on Saturday. Objective - Vital Signs Vital signs: Vital Signs Temp 98.0 F 02/26/17 07:00 Pulse 98 02/26/17 11:44 Resp 18 02/26/17 08:00 BP 92/51 02/26/17 07:00 Pulse Ox 97 02/26/17 07:00 Intake & Output 02/25/17 02/26/17 02/26/17 18:59 06:59 18:59 Intake Total 240 Output Total 225 Balance 15 Intake: Oral 240 Output: Urine 225 Other: Voiding Method Toilet Toilet Toilet # Voids 2 1 - Exam GENERAL EXAM: Alert, active, comfortable in no apparent distress. HEAD: Normocephalic/atraumatic. EYES: Normal reaction of pupils, equal size. Conjunctiva pink, sclera white. NOSE: Clear with pink turbinates. THROAT: No erythema or exudates. NECK: No masses, no JVD, no thyroid enlargement, no adenopathy. CHEST: No chest wall deformity. Symmetrical expansion. LUNGS: Equal air entry bilaterally, no wheezes, no rhonchi CVS: Regular rate and rhythm, normal S1 and S2, no gallops, no murmurs, no rubs ABDOMEN: Soft, nontender. No hepatosplenomegaly, normal bowel sounds, no guarding or rigidity. EXTREMITIES: No clubbing, no edema, no cyanosis, 2+ pulses and upper and lower extremities. MUSCULOSKELETAL: Muscle strength and tone normal. SPINE: No scoliosis or deformity SKIN: No rashes CENTRAL NERVOUS SYSTEM: Alert and oriented -3. No focal deficits, tone is normal in all 4 extremities. PSYCHIATRIC: Alert and oriented -3. Appropriate affect. Intact judgment and insight. - Labs CBC & Chem 7: 02/26/17 07:54 02/26/17 07:54 Labs: Abnormal Lab Results - Last 24 Hours (Table) 02/25/17 02/25/17 02/26/17 Range/Units 17:17 20:26 07:02 RBC (4.30-5.90) m/uL Hgb (13.0-17.5) gm/dL Hct (39.0-53.0) % MCHC (31.0-37.0) g/dL Potassium (3.5-5.1) mmol/L BUN (9-20) mg/dL Glucose (74-99) mg/dL POC Glucose (mg/dL) 125 H 127 H 143 H (75-99) mg/dL 02/26/17 02/26/17 02/26/17 Range/Units 07:54 07:54 11:45 RBC 4.01 L (4.30-5.90) m/uL Hgb 10.6 L (13.0-17.5) gm/dL Hct 35.4 L (39.0-53.0) % MCHC 30.1 L (31.0-37.0) g/dL Potassium 5.7 H (3.5-5.1) mmol/L BUN 22 H (9-20) mg/dL Glucose 131 H (74-99) mg/dL POC Glucose (mg/dL) 141 H (75-99) mg/dL Microbiology - Last 24 Hours (Table) 02/24/17 20:09 Gram Stain - Preliminary Sputum Sputum Culture - Preliminary Gram Neg Bacilli 02/23/17 20:09 Blood Culture - Preliminary Blood No Growth after 48 hours 02/24/17 00:12 Urine Culture - Final Urine,Voided Assessment and Plan Plan: Assessment 1 acute COPD exacerbation 2 limited right basilar infiltration, an underlying pneumonia cannot be completely excluded. Sputum culture was positive for gram-negative bacilli, patient responded well to Levaquin 3 COPD severe with an FEV1 of 45% predicted at baseline 4 prostate cancer treated by radiation therapy 5 chronic anxiety/depression 6 hyperlipidemia maintained on Zocor Plan Patient is improving, no worsening shortness of breath, tolerating activity without significant respiratory distress. Remains quite stable from respiratory standpoint. Stable for discharge home today on outpatient course of Levaquin, prednisone taper and his maintenance inhalers. Follow up with Dr. Dennison in the office on Saturday. I performed a history & physical examination of the patient and discussed their management with my nurse practitioner, Loulou Cross. I reviewed the nurse practitioner's note and agree with the documented findings and plan of care. Lung sounds are clear. The findings and the impression was discussed with the patient. I attest to the documentation by the nurse practitioner. Time with Patient: Less than 30
--- NOTE | 2017-02-27 08:30 | DS ---
DISCHARGE SUMMARY DATE OF SERVICE: 02/26/2017. FINAL DIAGNOSES: 1. Chronic obstructive pulmonary disease acute exacerbation with bibasilar pneumonia possibly gram-negative, right more than the left. 2. Anemia, normocytic. 3. History of possible recent flu. 4. Hyponatremia. 5. History of pneumonia, sepsis previously. 6. History of chronic obstructive pulmonary disease with FEV1 44% of the baseline predicted. 7. History of prostate cancer, radiation. 8. History of hyperlipidemia. 9. History of anxiety, depression. 10.History of pilonidal sinus. 11.Remote history of nicotine dependence. DISCHARGE DISPOSITION: The patient will be discharged in a stable condition with guarded prognosis. Dr. Warren cleared the patient for discharge. HISTORY OF PRESENT ILLNESS: This is an 81-year-old gentleman with a past medical history of multiple medical problems, admitted with COPD acute exacerbation as well as bibasilar pneumonia, treated with IV antibiotics and bronchodilators. The patient improved significantly. On exam, vitals are stable. CARDIOVASCULAR: S1, S2. RESPIRATORY: A few scattered rhonchi. ABDOMEN: Soft, nontender. Discharge diet is cardiac. Activity limited until followup. Follow up with Dr. Carolina in 2 to 3 days. Follow up with Dr. Warren as advised. Medications will be as follows: 1. Albuterol 2.5 q.i.d. p.r.n. 2. Vitamin C 500 mg p.o. daily. 3. Aspirin 81 mg q.h.s. 4. BuSpar 5 mg p.o. b.i.d. 5. Calcium 600 mg p.o. daily. 6. Celexa 40 mg q.h.s. 7. Advair 1 puff b.i.d. 8. Mucinex 1 daily. 9. Levaquin 750 p.o. daily for 5 days. 10.Melatonin 3 mg q.h.s. 11.Multivitamin 1 p.o. daily. 12.Prednisone taper, that will be 40 mg daily for 3 days, 30 for 3 days, 20 for 3 days, 10 for 3 days and then 10 mg daily. 13.Zocor 10 mg q.h.s. 14.Flomax 0.4 q.h.s. 15.Spiriva 1 puff daily. Once again, the patient will be discharged in a stable condition with guarded prognosis. MMODL / IJN: [id number] /
== END 2017-02-26 13:35 | disposition home or self-care (01) | DRG 178 ==
LOC: EC 19:56 → 5MS5E 22:24
PROVIDERS: ADMIT Hospitalist; ATTEND Hospitalist
DX: J15.6 Pneumonia due to other Gram-negative bacteria (principal); J44.0 Chronic obstructive pulmonary disease with (acute) lower respiratory infection; J96.11 Chronic respiratory failure with hypoxia; E87.1 Hypo-osmolality and hyponatremia; Z99.81 Dependence on supplemental oxygen; J44.1 Chronic obstructive pulmonary disease with (acute) exacerbation; E78.5 Hyperlipidemia, unspecified; F32.9 Major depressive disorder, single episode, unspecified; F41.9 Anxiety disorder, unspecified; D64.9 Anemia, unspecified; Z79.82 Long term (current) use of aspirin; Z79.899 Other long term (current) drug therapy; Z79.51 Long term (current) use of inhaled steroids; Z79.52 Long term (current) use of systemic steroids; Z85.46 Personal history of malignant neoplasm of prostate; Z90.49 Acquired absence of other specified parts of digestive tract; Z87.891 Personal history of nicotine dependence; Z92.3 Personal history of irradiation
CPT/HCPCS: 36415; 71046; 80048; 80053; 81003; 83036; 83605; 83735; 84484; 85025; 87040; 87070; 87077; 87086; 87186; 87205; 87502; 93005; 94640; 94760; 96361; 96365; 96375; 99285

== ENCOUNTER 2017-04-01 09:41 | Inpatient (IN) | payer MEDICARE, OTHER ==
[2017-04-01] MEDS ORDERED: SODIUM CHLORIDE 0.9% 1,000 ML IV STA ×2 (09:53)
[2017-04-01] MEDS ORDERED: methylPREDNISolone SOD SUCCI 125 MG/2 ML VIAL IV STA (09:53)
[2017-04-01] MEDS ORDERED: IPRATROPIUM-ALBUTEROL 3 ML NEB INHALATION STA (09:53)
--- NOTE | 2017-04-01 09:58 | ED ---
SOB HPI - General Stated Complaint: Diff breathing, Vomiting Time Seen by Provider: 04/01/17 09:41 Source: patient, EMS, RN notes reviewed Mode of arrival: EMS - History of Present Illness Initial Comments: This is a 81-year-old male was brought in by EMS with complaints of difficulty breathing he's had right sided sharp chest pain 2/10 severity that increased with breathing. He's had a fever. He was given DuoNeb and route as well as IV fluid bolus by EMS. He states he was recently hospitalized for pneumonia. He states he had pseudomonas he believes. He also complains of decreased oral intake since yesterday. His saturations were in the 80s did improve to about 90 -91 after the initial breathing treatment. MD Complaint: shortness of breath, cough - Related Data Home Medications Medication Instructions Recorded Confirmed Aspirin 81 mg PO HS 06/02/14 04/01/17 Citalopram Hydrobromide [CeleXA] 40 mg PO HS 06/02/14 04/01/17 Fluticasone/Salmeterol [Advair 1 puff INHALATION RT-BID 06/02/14 04/01/17 500-50 Diskus] Tamsulosin [Flomax] 0.4 mg PO HS 06/02/14 04/01/17 Tiotropium [place] [Spiriva] 1 cap INHALATION RT-DAILY 06/02/14 04/01/17 Simvastatin [Zocor] 10 mg PO HS 08/27/14 04/01/17 Multivit-Mins/Iron/Folic/Lycop 1 tab PO DAILY 06/19/15 04/01/17 [Centrum Men's Tablet] Ascorbic Acid [Vitamin C] 500 mg PO DAILY 02/13/16 04/01/17 guaiFENesin-DM 600/30MG [Mucinex 1 tab PO DAILY 02/13/16 04/01/17 Dm] Calcium Carbonate [Calcium] 600 mg PO DAILY 02/24/17 04/01/17 Melatonin 3 mg PO HS 02/24/17 04/01/17 busPIRone HCl [Buspar] 5 mg PO BID 02/24/17 04/01/17 Albuterol Nebulized [Ventolin 2.5 mg INHALATION RT-QID 04/01/17 04/01/17 Nebulized] Previous Rx's Medication Instructions Recorded predniSONE 10 mg PO DAILY #0 02/26/17 Allergies Allergy/AdvReac Type Severity Reaction Status Date / Time No Known Allergies Allergy Verified 04/01/17 10:13 Review of Systems ROS Statement: Those systems with pertinent positive or pertinent negative responses have been documented in the HPI. ROS Other: All systems not noted in ROS Statement are negative. 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, SEED IMPLANTS FOR PROSTATE CA 2007 Past Anesthesia/Blood Transfusion Reactions: No Reported Reaction Past Psychological History: No Psychological Hx Reported Smoking Status: Former smoker Past Alcohol Use History: None Reported Additional Past Alcohol Use History / Comment(s): SMOKED X 40 YEARS 2PPD QUIT 1991 Past Drug Use History: None Reported - Past Family History Father Family Medical History: Cancer Additional Family Medical History / Comment(s): spine CA which spread to bone CA General Exam - General Exam Comments Initial Comments: This is a well-developed well-nourished awake alert oriented 3 male General appearance: alert, in distress Head exam: Present: atraumatic, normocephalic, normal inspection Eye exam: Present: normal appearance, PERRL, EOMI. Absent: scleral icterus, conjunctival injection, periorbital swelling ENT exam: Present: mucous membranes dry Neck exam: Present: normal inspection. Absent: tenderness, meningismus, lymphadenopathy Respiratory exam: Present: rhonchi (Right lower lobe rhonchi), accessory muscle use, decreased breath sounds Cardiovascular Exam: Present: normal rhythm, tachycardia GI/Abdominal exam: Present: soft, normal bowel sounds. Absent: distended, tenderness, guarding, rebound, rigid Rectal exam: Present: deferred Extremities exam: Present: normal inspection, full ROM, normal capillary refill. Absent: tenderness, pedal edema, joint swelling, calf tenderness Back exam: Present: normal inspection Neurological exam: Present: alert, oriented X3, CN II-XII intact Psychiatric exam: Present: normal affect, normal mood Skin exam: Present: warm, dry, intact, normal color. Absent: rash Course Vital Signs 04/01/17 04/01/17 04/01/17 09:50 10:05 10:18 Temperature 101.4 F H Pulse Rate 116 H 115 H 110 H Respiratory 24 Rate Blood Pressure 128/56 O2 Sat by Pulse 91 L Oximetry 04/01/17 04/01/17 04/01/17 10:20 11:00 12:15 Temperature 100.9 F H 98.9 F Pulse Rate 110 H 103 H 100 Respiratory 24 20 20 Rate Blood Pressure 111/59 115/55 113/56 O2 Sat by Pulse 92 L 94 L 95 Oximetry - Reevaluation(s) Reevaluation #1: 04/01/17 12:40 Reevaluation patient reveals some improvement after the initial treatment that was rendered. Medical Decision Making - Medical Decision Making I did discuss findings with the patient and family members as well as Dr. Yu who is covering Dr. Carolina patient be admitted with consultation by Dr. Dennison. - Lab Data Result diagrams: 04/01/17 10:00 04/01/17 10:00 Lab Results 04/01/17 04/01/17 04/01/17 Range/Units 10:00 10:00 10:00 WBC 19.6 H (3.8-10.6) k/uL RBC 4.59 (4.30-5.90) m/uL Hgb 12.5 L (13.0-17.5) gm/dL Hct 39.8 (39.0-53.0) % MCV 86.6 (80.0-100.0) fL MCH 27.3 (25.0-35.0) pg MCHC 31.5 (31.0-37.0) g/dL RDW 15.4 (11.5-15.5) % Plt Count 204 (150-450) k/uL Neutrophils % 89 % Lymphocytes % 7 % Monocytes % 3 % Eosinophils % 1 % Basophils % 0 % Neutrophils # 17.5 H (1.3-7.7) k/uL Lymphocytes # 1.3 (1.0-4.8) k/uL Monocytes # 0.6 (0-1.0) k/uL Eosinophils # 0.1 (0-0.7) k/uL Basophils # 0.0 (0-0.2) k/uL PT (9.0-12.0) sec INR (<1.2) APTT (22.0-30.0) sec Sodium 138 (137-145) mmol/L Potassium 4.1 (3.5-5.1) mmol/L Chloride 103 (98-107) mmol/L Carbon Dioxide 28 (22-30) mmol/L Anion Gap 7 mmol/L BUN 22 H (9-20) mg/dL Creatinine 0.79 (0.66-1.25) mg/dL Est GFR (MDRD) Af Amer >60 (>60 ml/min/1.73 sqM) Est GFR (MDRD) Non-Af >60 (>60 ml/min/1.73 sqM) Glucose 118 H (74-99) mg/dL Calcium 8.4 (8.4-10.2) mg/dL Magnesium 1.8 (1.6-2.3) mg/dL Total Bilirubin 1.5 H (0.2-1.3) mg/dL AST 23 (17-59) U/L ALT 25 (21-72) U/L Alkaline Phosphatase 62 (38-126) U/L Total Creatine Kinase 28 L (55-170) U/L CK-MB (CK-2) 0.3 (0.0-2.4) ng/mL CK-MB (CK-2) Rel Index 1.1 Troponin I 0.039 H* (0.000-0.034) ng/mL NT-Pro-B Natriuret Pep pg/mL Total Protein 5.8 L (6.3-8.2) g/dL Albumin 3.1 L (3.5-5.0) g/dL Influenza Type A RNA (Not Detectd) Influenza Type B (PCR) (Not Detectd) 04/01/17 04/01/17 04/01/17 Range/Units 10:00 10:00 10:00 WBC (3.8-10.6) k/uL RBC (4.30-5.90) m/uL Hgb (13.0-17.5) gm/dL Hct (39.0-53.0) % MCV (80.0-100.0) fL MCH (25.0-35.0) pg MCHC (31.0-37.0) g/dL RDW (11.5-15.5) % Plt Count (150-450) k/uL Neutrophils % % Lymphocytes % % Monocytes % % Eosinophils % % Basophils % % Neutrophils # (1.3-7.7) k/uL Lymphocytes # (1.0-4.8) k/uL Monocytes # (0-1.0) k/uL Eosinophils # (0-0.7) k/uL Basophils # (0-0.2) k/uL PT 11.4 (9.0-12.0) sec INR 1.2 H (<1.2) APTT 26.1 (22.0-30.0) sec Sodium (137-145) mmol/L Potassium (3.5-5.1) mmol/L Chloride (98-107) mmol/L Carbon Dioxide (22-30) mmol/L Anion Gap mmol/L BUN (9-20) mg/dL Creatinine (0.66-1.25) mg/dL Est GFR (MDRD) Af Amer (>60 ml/min/1.73 sqM) Est GFR (MDRD) Non-Af (>60 ml/min/1.73 sqM) Glucose (74-99) mg/dL Calcium (8.4-10.2) mg/dL Magnesium (1.6-2.3) mg/dL Total Bilirubin (0.2-1.3) mg/dL AST (17-59) U/L ALT (21-72) U/L Alkaline Phosphatase (38-126) U/L Total Creatine Kinase (55-170) U/L CK-MB (CK-2) (0.0-2.4) ng/mL CK-MB (CK-2) Rel Index Troponin I (0.000-0.034) ng/mL NT-Pro-B Natriuret Pep 412 pg/mL Total Protein (6.3-8.2) g/dL Albumin (3.5-5.0) g/dL Influenza Type A RNA Not Detected (Not Detectd) Influenza Type B (PCR) Not Detected (Not Detectd) - EKG Data -: EKG Interpreted by Or EKG shows normal: sinus rhythm (Sinus x-ray rate of [id number] QRS duration 82 QT since QTC of 318/442 st-t wave changes some artifact is present.) - Radiology Data Radiology results: report reviewed (I did review the imaging and reports are is evidence of right lower lobe infiltrate is new in extensive), image reviewed Critical Care Time Critical Care Time: Yes Critical Care Time: 35 minutes of critical care time which includes initial monitoring of the EMS run and discussed with paramedics history physical labs x-rays several reevaluation the patient. Discussed with the patient family regarding findings. Discussed with the admitting physician. Review of old charting. Documentation of the above and initial orders. Disposition Clinical Impression: Acute exacerbation of chronic obstructive airways disease, Adult respiratory distress syndrome, Right lower lobe pneumonia, Dehydration, Febrile illness, acute Disposition: ADMITTED IP TO THIS HOSP Condition: Stable Referrals: Lily Carolina MD [Primary Care Provider] - 1-2 days
[2017-04-01 10:32] LABS: ALT 25 U/L (21-72); AST 23 U/L (17-59); Albumin 3.1 g/dL (3.5-5.0); Alkaline Phosphatase 62 U/L (38-126); Anion Gap 7 mmol/L; Blood Urea Nitrogen 22 mg/dL (9-20); Calcium 8.4 mg/dL (8.4-10.2); Carbon Dioxide 28 mmol/L (22-30); Chloride 103 mmol/L (98-107); Glucose 118 mg/dL (74-99); INR 1.2 (<1.2); Magnesium 1.8 mg/dL (1.6-2.3); Partial Thromboplastin Time 26.1 sec (22.0-30.0); Potassium 4.1 mmol/L (3.5-5.1); Prothrombin Time 11.4 sec (9.0-12.0); Sodium 138 mmol/L (137-145); Total Bilirubin 1.5 mg/dL (0.2-1.3); Total Protein 5.8 g/dL (6.3-8.2)
[2017-04-01 10:34] LABS: Basophils % (A) 0 %; Eosinophils # (A) 0.1 k/uL (0-0.7); Eosinophils % (A) 1 %; HCT 39.8 % (39.0-53.0); HGB 12.5 gm/dL (13.0-17.5); Lymphocytes # (A) 1.3 k/uL (1.0-4.8); Lymphocytes % (A) 7 %; MCH 27.3 pg (25.0-35.0); MCHC 31.5 g/dL (31.0-37.0); MCV 86.6 fL (80.0-100.0); Mean Platelet Volume 7.5; Monocytes # (A) 0.6 k/uL (0-1.0); Monocytes % (A) 3 %; Neutrophils # (A) 17.5 k/uL (1.3-7.7); Neutrophils % (A) 89 %; Platelet Count 204 k/uL (150-450); RBC 4.59 m/uL (4.30-5.90); RDW 15.4 % (11.5-15.5); WBC 19.6 k/uL (3.8-10.6)
[2017-04-01 10:52] LABS: Creatine Kinase MB 0.3 ng/mL (0.0-2.4)
[2017-04-01 10:54] LABS: Troponin I 0.039 ng/mL (0.000-0.034)
--- NOTE | 2017-04-01 10:54 | XR ---
EXAMINATION TYPE: XR chest 2V DATE OF EXAM: 04/01/2017 COMPARISON: 03/01/2017 HISTORY: 81-year-old male difficulty breathing TECHNIQUE: AP and lateral views FINDINGS: Heart normal size. Relative lung lucencies and hyperinflation compatible with underlying emphysema wi th bullous change. However, extensive consolidation in the periphery of the right lung and left base is new. No pleural effusion. IMPRESSION: 1. COPD with bullous emphysema. 2. Extensive new infiltrates in the peripheral right lung and left base. Consider pneumonia.
[2017-04-01] MEDS ORDERED: IBUPROFEN 800 MG TAB PO STA (11:04)
[2017-04-01] MEDS ORDERED: CLINDAMYCIN 600 MG in DEXTROSE 5% IN WATER 50 ML IVPB STA ×2 (11:19)
[2017-04-01] MEDS ORDERED: VANCOMYCIN 1,500 MG in SODIUM CHLORIDE 0.9% 250 ML IVPB STA (11:28)
[2017-04-01] MEDS ORDERED: PNEUMONIA PROTOCOL UTILIZED 1 EACH MISC PO PRN (12:44)
--- NOTE | 2017-04-01 12:44 | ED ---
Medical Decision Making - Lab Data Result diagrams: 04/01/17 10:00 04/01/17 10:00 Lab Results 04/01/17 04/01/17 04/01/17 Range/Units 10:00 10:00 10:00 WBC 19.6 H (3.8-10.6) k/uL RBC 4.59 (4.30-5.90) m/uL Hgb 12.5 L (13.0-17.5) gm/dL Hct 39.8 (39.0-53.0) % MCV 86.6 (80.0-100.0) fL MCH 27.3 (25.0-35.0) pg MCHC 31.5 (31.0-37.0) g/dL RDW 15.4 (11.5-15.5) % Plt Count 204 (150-450) k/uL Neutrophils % 89 % Lymphocytes % 7 % Monocytes % 3 % Eosinophils % 1 % Basophils % 0 % Neutrophils # 17.5 H (1.3-7.7) k/uL Lymphocytes # 1.3 (1.0-4.8) k/uL Monocytes # 0.6 (0-1.0) k/uL Eosinophils # 0.1 (0-0.7) k/uL Basophils # 0.0 (0-0.2) k/uL PT (9.0-12.0) sec INR (<1.2) APTT (22.0-30.0) sec Sodium 138 (137-145) mmol/L Potassium 4.1 (3.5-5.1) mmol/L Chloride 103 (98-107) mmol/L Carbon Dioxide 28 (22-30) mmol/L Anion Gap 7 mmol/L BUN 22 H (9-20) mg/dL Creatinine 0.79 (0.66-1.25) mg/dL Est GFR (MDRD) Af Amer >60 (>60 ml/min/1.73 sqM) Est GFR (MDRD) Non-Af >60 (>60 ml/min/1.73 sqM) Glucose 118 H (74-99) mg/dL Calcium 8.4 (8.4-10.2) mg/dL Magnesium 1.8 (1.6-2.3) mg/dL Total Bilirubin 1.5 H (0.2-1.3) mg/dL AST 23 (17-59) U/L ALT 25 (21-72) U/L Alkaline Phosphatase 62 (38-126) U/L Total Creatine Kinase 28 L (55-170) U/L CK-MB (CK-2) 0.3 (0.0-2.4) ng/mL CK-MB (CK-2) Rel Index 1.1 Troponin I 0.039 H* (0.000-0.034) ng/mL NT-Pro-B Natriuret Pep pg/mL Total Protein 5.8 L (6.3-8.2) g/dL Albumin 3.1 L (3.5-5.0) g/dL Influenza Type A RNA (Not Detectd) Influenza Type B (PCR) (Not Detectd) 04/01/17 04/01/17 04/01/17 Range/Units 10:00 10:00 10:00 WBC (3.8-10.6) k/uL RBC (4.30-5.90) m/uL Hgb (13.0-17.5) gm/dL Hct (39.0-53.0) % MCV (80.0-100.0) fL MCH (25.0-35.0) pg MCHC (31.0-37.0) g/dL RDW (11.5-15.5) % Plt Count (150-450) k/uL Neutrophils % % Lymphocytes % % Monocytes % % Eosinophils % % Basophils % % Neutrophils # (1.3-7.7) k/uL Lymphocytes # (1.0-4.8) k/uL Monocytes # (0-1.0) k/uL Eosinophils # (0-0.7) k/uL Basophils # (0-0.2) k/uL PT 11.4 (9.0-12.0) sec INR 1.2 H (<1.2) APTT 26.1 (22.0-30.0) sec Sodium (137-145) mmol/L Potassium (3.5-5.1) mmol/L Chloride (98-107) mmol/L Carbon Dioxide (22-30) mmol/L Anion Gap mmol/L BUN (9-20) mg/dL Creatinine (0.66-1.25) mg/dL Est GFR (MDRD) Af Amer (>60 ml/min/1.73 sqM) Est GFR (MDRD) Non-Af (>60 ml/min/1.73 sqM) Glucose (74-99) mg/dL Calcium (8.4-10.2) mg/dL Magnesium (1.6-2.3) mg/dL Total Bilirubin (0.2-1.3) mg/dL AST (17-59) U/L ALT (21-72) U/L Alkaline Phosphatase (38-126) U/L Total Creatine Kinase (55-170) U/L CK-MB (CK-2) (0.0-2.4) ng/mL CK-MB (CK-2) Rel Index Troponin I (0.000-0.034) ng/mL NT-Pro-B Natriuret Pep 412 pg/mL Total Protein (6.3-8.2) g/dL Albumin (3.5-5.0) g/dL Influenza Type A RNA Not Detected (Not Detectd) Influenza Type B (PCR) Not Detected (Not Detectd) Disposition Clinical Impression: Acute exacerbation of chronic obstructive airways disease, Adult respiratory distress syndrome, Right lower lobe pneumonia, Dehydration, Febrile illness, acute, MRSA (methicillin resistant staph aureus) culture positive Disposition: ADMITTED IP TO THIS HOSP Condition: Stable Referrals: Lily Carolina MD [Primary Care Provider] - 1-2 days
[2017-04-01] MEDS ORDERED: VANCOMYCIN IV PER PHARMACY 1 EACH MISC MISCELLANE PRN (13:10)
[2017-04-01] MEDS ORDERED: PIPERACILLIN-TAZOBACTAM 3.375 GM in DEXTROSE/WATER 1 50ML.BAG IVPB STA (13:11)
[2017-04-01] MEDS: IPRATROPIUM-ALBUTEROL 3 ML NEB INHALATION SCH ×2 (15:29→20:24)
--- NOTE | 2017-04-01 16:50 | P.HPIM ---
History of Present Illness H&P Date: 04/01/17 Chief Complaint: Shortness of breath Patient is a 81-year-old male with a known history of COPD, hypertension and recent Pseudomonas sputum culture with pneumonia came to ER with complaints of worsening shortness of breath for the past 2 days. Patient has been having fever and tiredness and right-sided sharp chest pain to by 10 severity that increases with breathing. Patient did have pneumonia with positive sputum cultures with Pseudomonas and was treated with ciprofloxacin. Patient completed antibiotic course last Saturday and was told to view sputum sample again 2 days lateral. Sputum cultures done on 03/28/2017 showed MRSA and Pseudomonas. Patient does follow with Dr. Dennison as an outpatient. Patient was started on vancomycin and Zosyn at this time. Otherwise patient denied any nausea vomiting or abdominal pain. Patient did have remote history of smoking. Patient was saturating in the 80s and he came to the hospital. Patient was tachycardic, tachypneic and febrile with T-max 101.4 while in the hospital. 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 Extensive perihilar infiltrate in the right lung and left lung base. Review of Systems Constitutional: Patient does have fever and chills and tiredness. No generalized weakness or weight loss. Abdomen: Patient denied nausea vomiting and diarrhea and abdominal pain. Cardiovascular: Patient denies any chest pain . no palpitations. Respiratory: Cough with minimal sputum production. Positive shortness of breath Neurologic: Patient denied any numbness or tingling headache. Musculoskeletal: Patient denies any complaints of joint swelling or deformity. Skin: Negative Psychiatric: Negative Endocrine: No heat or cold intolerance. No recent weight gain. Genitourinary: No dysuria or hematuria. All other 14 point ROS negative except the above Past Medical History Past Medical History: Cancer, COPD, Hyperlipidemia, Pneumonia, Prostate Disorder Additional Past Medical History / Comment(s): Pt recently admitted on 02/23/17 with bilateral pneumonia. Other hx: COPD, pneumonia with sepsis, 2007 prostate cancer treated by radiation therapy, skin cancer with removal, normocytic anemia, cervical DDD. History of Any Multi-Drug Resistant Organisms: MRSA Date of last positivie culture/infection: 03/28/17 MDRO Source:: SPUTUM Past Surgical History: Appendectomy Additional Past Surgical History / Comment(s): pilonidal cyst, 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, SEED IMPLANTS FOR PROSTATE CA 2007, nasal surgery, hemorrhoidectomy, colonoscopy, circumcism, skin cancer removed from R forearm. Past Anesthesia/Blood Transfusion Reactions: No Reported Reaction Past Psychological History: Anxiety, Depression Additional Psychological History / Comment(s): Pt resides with his spouse who has RA. They have 1 dog and 2 cats[address] drives. Smoking Status: Former smoker Past Alcohol Use History: None Reported Additional Past Alcohol Use History / Comment(s): SMOKED X 40 YEARS 2PPD QUIT 1991 Past Drug Use History: None Reported - Past Family History Mother Family Medical History: No Reported History Father Family Medical History: Cancer Additional Family Medical History / Comment(s): spine CA which spread to bone CA Medications and Allergies Home Medications Medication Instructions Recorded Confirmed Type Aspirin 81 mg PO HS 06/02/14 04/01/17 History Citalopram Hydrobromide [CeleXA] 40 mg PO HS 06/02/14 04/01/17 History Fluticasone/Salmeterol [Advair 1 puff INHALATION RT-BID 06/02/14 04/01/17 History 500-50 Diskus] Tamsulosin [Flomax] 0.4 mg PO HS 06/02/14 04/01/17 History Tiotropium [place] [Spiriva] 1 cap INHALATION RT-DAILY 06/02/14 04/01/17 History Simvastatin [Zocor] 10 mg PO HS 08/27/14 04/01/17 History Multivit-Mins/Iron/Folic/Lycop 1 tab PO DAILY 06/19/15 04/01/17 History [Centrum Men's Tablet] Ascorbic Acid [Vitamin C] 500 mg PO DAILY 02/13/16 04/01/17 History guaiFENesin-DM 600/30MG [Mucinex 1 tab PO DAILY 02/13/16 04/01/17 History Dm] Calcium Carbonate [Calcium] 600 mg PO DAILY 02/24/17 04/01/17 History Melatonin 3 mg PO HS 02/24/17 04/01/17 History busPIRone HCl [Buspar] 5 mg PO BID 02/24/17 04/01/17 History predniSONE 10 mg PO DAILY #0 02/26/17 04/01/17 Rx Albuterol Nebulized [Ventolin 2.5 mg INHALATION RT-QID 04/01/17 04/01/17 History Nebulized] Allergies Allergy/AdvReac Type Severity Reaction Status Date / Time No Known Allergies Allergy Verified 04/01/17 10:13 Physical Exam Vitals: Vital Signs Temp Pulse Resp BP Pulse Ox 04/01/17 14:20 98.9 F 95 20 104/58 96 04/01/17 13:40 93 18 97/55 95 04/01/17 12:15 98.9 F 100 20 113/56 95 04/01/17 11:00 100.9 F H 103 H 20 115/55 94 L 04/01/17 10:20 110 H 24 111/59 92 L 04/01/17 10:18 110 H 04/01/17 10:05 115 H 04/01/17 09:50 101.4 F H 116 H 24 128/56 91 L Intake and Output 04/01/17 04/01/17 04/01/17 06:59 14:59 22:59 Other: Weight 77.111 kg Patient Weight 04/02/17 06:59 Weight 77.111 kg PHYSICAL EXAMINATION: Patient is lying in the bed comfortably, no acute distress, awake alert and oriented.. HEENT: Normocephalic. Neck is supple. Pupils reactive. Nostrils clear. Oral cavity is moist. Ears reveal no drainage. Neck reveals no JVD, carotid bruits, or thyromegaly. CHEST EXAMINATION: Trachea is central. Symmetrical expansion. Diminished air entry bibasilar and expiratory wheezing and rhonchi positive CARDIAC: Normal S1, S2 with no gallops. No murmurs ABDOMEN: Soft. Bowel sounds normal. No organomegaly. No abdominal bruits. Extremities: reveal no edema. No clubbing or cyanosis Neurologically awake, alert, oriented x3 with well-coordinated movements. No focal deficits noted Skin: No rash or skin lesions. Psychiatric: Coperative. Nonsuicidal Musculoskeletal: No joint swelling or deformity. Normal range of motion. Results CBC & Chem 7: 04/01/17 10:00 04/01/17 10:00 Labs: Abnormal Lab Results - Last 24 Hours (Table) 04/01/17 04/01/17 04/01/17 Range/Units 10:00 10:00 10:00 WBC 19.6 H (3.8-10.6) k/uL Hgb 12.5 L (13.0-17.5) gm/dL Neutrophils # 17.5 H (1.3-7.7) k/uL INR (<1.2) BUN 22 H (9-20) mg/dL Glucose 118 H (74-99) mg/dL Total Bilirubin 1.5 H (0.2-1.3) mg/dL Total Creatine Kinase 28 L (55-170) U/L Troponin I 0.039 H* (0.000-0.034) ng/mL Total Protein 5.8 L (6.3-8.2) g/dL Albumin 3.1 L (3.5-5.0) g/dL 04/01/17 Range/Units 10:00 WBC (3.8-10.6) k/uL Hgb (13.0-17.5) gm/dL Neutrophils # (1.3-7.7) k/uL INR 1.2 H (<1.2) BUN (9-20) mg/dL Glucose (74-99) mg/dL Total Bilirubin (0.2-1.3) mg/dL Total Creatine Kinase (55-170) U/L Troponin I (0.000-0.034) ng/mL Total Protein (6.3-8.2) g/dL Albumin (3.5-5.0) g/dL Thrombosis Risk Factor Assmnt - DVT/VTE Prophylaxis DVT/VTE Prophylaxis: Pharmacologic Prophylaxis ordered - Choose All That Apply Any of the Below Risk Factors Present?: Yes Each Factor Represents 1 point: Abnormal pulmonary function (COPD), Serious lung disease incl. pneumonia (< 1month) Other Risk Factors: Yes Each Risk Factor Represents 2 Points: Malignancy Each Risk Factor Represents 3 Points: Age 75 years or older Other congenital or acquired thrombophilia - If yes, enter type in comment: No Thrombosis Risk Factor Assessment Total Risk Factor Score: 7 Thrombosis Risk Factor Assessment Level: High Risk Assessment and Plan Assessment: Extensive right perihilar infiltrate with pneumonia. Sputum culture showed MRSA and Pseudomonas recently Sepsis secondary to pneumonia History of Pseudomonas pneumonia February 2017 COPD with exacerbation COPD severe with an FEV1 of 45% predicted at baseline prostate cancer treated by radiation therapy chronic anxiety/depression hyperlipidemia maintained on Zocor DVT prophylaxis Plan: Patient be continued on antibiotics in the form of vancomycin and Zosyn. Follow culture reports. Pulmonary has been consulted. Continue with the steroids and breathing treatments and follow closely. Further conditions based on the clinical course. Prognosis is guarded. Time with Patient: Greater than 30
[2017-04-01] MEDS ORDERED: LEVOFLOXACIN 500MG-D5W PMX 500 MG in DEXTROSE/WATER 1 100ML.BAG IVPB SCH (18:00)
[2017-04-01] MEDS: INSULIN ASPART 100 UNIT/ML 1 ML 10 ML VIAL SQ SCH ×2 (18:18→23:17)
[2017-04-01] MEDS: SODIUM CHLORIDE 0.9% 1,000 ML IV SCH ×2 (18:18→20:29)
[2017-04-01] MEDS: methylPREDNISolone SOD SUCCI 125 MG/2 ML VIAL IV SCH ×2 (18:23→23:17)
[2017-04-01] MEDS: SYMBICORT 160-4.5 MCG INHALER INHALATION SCH (20:24)
[2017-04-01] MEDS: ATORVASTATIN 10 MG TAB PO SCH (20:27)
[2017-04-01] MEDS: ASPIRIN 81 MG PO SCH (20:27)
[2017-04-01] MEDS: TAMSULOSIN 0.4 MG CAP.ER.24H PO SCH (20:27)
[2017-04-01] MEDS: busPIRone HCl 5 MG TAB PO SCH (20:27)
[2017-04-01] MEDS: MELATONIN 3 MG TABLET PO SCH (20:27)
[2017-04-01] MEDS: CITALOPRAM HYDROBROMIDE 20 MG TAB PO SCH (20:27)
[2017-04-01] MEDS: HEPARIN SODIUM,PORCINE 5,000 UNIT/ML 1 ML VIAL SQ SCH (20:27)
[2017-04-01] MEDS: VANCOMYCIN 1,500 MG in SODIUM CHLORIDE 0.9% 250 ML IVPB SCH (20:28)
[2017-04-01] MEDS ORDERED: IPRATROPIUM-ALBUTEROL 3 ML NEB INHALATION PRN (20:31)
[2017-04-01 20:47] LABS: Glucose,Whole Blood 187 mg/dL (75-99)
[2017-04-02 06:09] LABS: Glucose,Whole Blood 147 mg/dL (75-99)
[2017-04-02] MEDS: methylPREDNISolone SOD SUCCI 125 MG/2 ML VIAL IV SCH ×3 (07:08→17:49)
[2017-04-02] MEDS: INSULIN ASPART 100 UNIT/ML 1 ML 10 ML VIAL SQ SCH ×4 (07:09→21:29)
[2017-04-02 07:27] LABS: Basophils % (A) 0 %; Eosinophils % (A) 0 %; HCT 32.8 % (39.0-53.0); HGB 10.1 gm/dL (13.0-17.5); Hypochromasia Moderate; Lymphocytes # (A) 0.6 k/uL (1.0-4.8); Lymphocytes % (A) 3 %; MCH 27.5 pg (25.0-35.0); MCHC 30.7 g/dL (31.0-37.0); MCV 89.5 fL (80.0-100.0); Mean Platelet Volume 8.6; Monocytes # (A) 0.4 k/uL (0-1.0); Monocytes % (A) 2 %; Neutrophils # (A) 17.7 k/uL (1.3-7.7); Neutrophils % (A) 94 %; Platelet Count 176 k/uL (150-450); RBC 3.66 m/uL (4.30-5.90); RDW 15.4 % (11.5-15.5); WBC 18.7 k/uL (3.8-10.6)
[2017-04-02 07:30] LABS: Anion Gap 6 mmol/L; Blood Urea Nitrogen 20 mg/dL (9-20); Calcium 8.4 mg/dL (8.4-10.2); Carbon Dioxide 26 mmol/L (22-30); Chloride 108 mmol/L (98-107); Glucose 136 mg/dL (74-99); Potassium 4.3 mmol/L (3.5-5.1); Sodium 140 mmol/L (137-145)
--- NOTE | 2017-04-02 07:31 | XR ---
EXAMINATION TYPE: XR chest 2V DATE OF EXAM: 04/02/2017 COMPARISON: Chest x-ray from yesterday and older studies. HISTORY: History of COPD and emphysema with difficulty in breathing. TECHNIQUE: Frontal and lateral views of the chest are obtained. FINDINGS: There is background chronic emphysematous change with scattered bibasilar scarring. There is persistent right midlung lateral opacity new from older studies. No large pleural effusion or pne umothorax is seen. The cardiac silhouette size is within normal limits. The osseous structures are intact. IMPRESSION: Chronic emphysematous change with scattered fibrosis, persistent right midlung lateral i nfiltrates new from older studies. No significant change from one day earlier.
[2017-04-02] MEDS: IPRATROPIUM-ALBUTEROL 3 ML NEB INHALATION SCH ×4 (07:38→20:59)
[2017-04-02] MEDS: SYMBICORT 160-4.5 MCG INHALER INHALATION SCH ×2 (07:38→20:58)
[2017-04-02] MEDS: busPIRone HCl 5 MG TAB PO SCH ×2 (08:24→21:28)
[2017-04-02] MEDS: HEPARIN SODIUM,PORCINE 5,000 UNIT/ML 1 ML VIAL SQ SCH ×2 (08:24→21:29)
[2017-04-02] MEDS: VANCOMYCIN 1,500 MG in SODIUM CHLORIDE 0.9% 250 ML IVPB SCH ×2 (08:24→21:28)
[2017-04-02] MEDS: guaiFENesin-DM 600/30MG 1 EACH TAB.ER.12H PO SCH (08:24)
[2017-04-02] MEDS: ASCORBIC ACID 500 MG TAB PO SCH (08:24)
[2017-04-02] MEDS: CALCIUM CARBONATE 500 MG CHEWABLE PO SCH ×2 (08:25→10:33)
[2017-04-02] MEDS ORDERED: traMADol 50 MG TAB PO PRN (09:36)
[2017-04-02] MEDS ORDERED: ACETAMINOPHEN TAB 325 MG TAB PO PRN (09:36)
[2017-04-02] MEDS: SODIUM CHLORIDE 0.9% 1,000 ML IV SCH ×2 (10:52→17:46)
[2017-04-02 11:20] LABS: Glucose,Whole Blood 142 mg/dL (75-99)
--- NOTE | 2017-04-02 11:50 | P.CNPUL ---
History of Present Illness Consult date: 04/02/17 Requesting physician: Joanna Yu Reason for consult: dyspnea Chief complaint: Shortness of breath, cough, congestion History of present illness: This is a very pleasant 81-year-old gentleman who follows with Dr. Carolina as his primary care physician. He has a history of prostate cancer treated with radiation therapy, hyperlipidemia, anxiety/depression. He also has a history of chronic obstructive pulmonary disease with a 40 year 2 pack per day smoking history. He did quit back in 1991. He is treated with Advair, Spiriva and albuterol in the outpatient setting. He was here one month ago for COPD exacerbation. His FEV1 value is 45% of predicted. Oxygen dependent. His influenza screen at that time was negative. He was found however to have pseudomonas aeruginosa positive sputum. A follow-up sputum on 03/28/2017 is positive for Pseudomonas along with methicillin resistant staph aureus. He presented here again yesterday to the emergency room with complaints of increasing shortness of breath, cough and congestion. He also had complaints of sharp right-sided chest discomfort. His chest x-ray shows areas of chronic emphysema changes with scattered fibrosis. There is a persistent right midlung lateral infiltrate which was new compared to previous. White count 18.7. He's had a T-max of 101.4. Currently on 5 L/m per nasal cannula. He has been initiated on vancomycin and Levaquin. Review of Systems Constitutional: Reports chills, Reports fever, Reports poor appetite Eyes: denies blurred vision, denies photophobia Ears: bilateral: decreased hearing Ears, nose, mouth and throat: Reports as per HPI Breasts: absent: gynecomastia Cardiovascular: Reports chest pain Respiratory: Reports congestion, Reports cough with sputum, Reports dyspnea, Reports home oxygen, Reports pain on inspiration Gastrointestinal: Reports as per HPI Genitourinary: Reports as per HPI Musculoskeletal: Reports as per HPI Integumentary: Reports as per HPI Neurological: Reports as per HPI Psychiatric: Reports as per HPI Endocrine: Reports as per HPI Hematologic/Lymphatic: Reports as per HPI Allergic/Immunologic: Reports as per HPI Past Medical History Past Medical History: Cancer, COPD, Hyperlipidemia, Pneumonia, Prostate Disorder Additional Past Medical History / Comment(s): Pt recently admitted on 02/23/17 with bilateral pneumonia. Other hx: COPD, pneumonia with sepsis, 2007 prostate cancer treated by radiation therapy, skin cancer with removal, normocytic anemia, cervical DDD. History of Any Multi-Drug Resistant Organisms: MRSA Date of last positivie culture/infection: 03/28/17 MDRO Source:: SPUTUM Past Surgical History: Appendectomy Additional Past Surgical History / Comment(s): pilonidal cyst, 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, SEED IMPLANTS FOR PROSTATE CA 2007, nasal surgery, hemorrhoidectomy, colonoscopy, circumcism, skin cancer removed from R forearm. Past Anesthesia/Blood Transfusion Reactions: No Reported Reaction Past Psychological History: Anxiety, Depression Additional Psychological History / Comment(s): Pt resides with his spouse who has RA. They have 1 dog and 2 cats. [address] drives. Smoking Status: Former smoker Past Alcohol Use History: None Reported Additional Past Alcohol Use History / Comment(s): SMOKED X 40 YEARS 2PPD QUIT 1991 Past Drug Use History: None Reported - Past Family History Mother Family Medical History: No Reported History Father Family Medical History: Cancer Additional Family Medical History / Comment(s): spine CA which spread to bone CA Medications and Allergies Home Medications Medication Instructions Recorded Confirmed Type Aspirin 81 mg PO HS 06/02/14 04/01/17 History Citalopram Hydrobromide [CeleXA] 40 mg PO HS 06/02/14 04/01/17 History Fluticasone/Salmeterol [Advair 1 puff INHALATION RT-BID 06/02/14 04/01/17 History 500-50 Diskus] Tamsulosin [Flomax] 0.4 mg PO HS 06/02/14 04/01/17 History Tiotropium [place] [Spiriva] 1 cap INHALATION RT-DAILY 06/02/14 04/01/17 History Simvastatin [Zocor] 10 mg PO HS 08/27/14 04/01/17 History Multivit-Mins/Iron/Folic/Lycop 1 tab PO DAILY 06/19/15 04/01/17 History [Centrum Men's Tablet] Ascorbic Acid [Vitamin C] 500 mg PO DAILY 02/13/16 04/01/17 History guaiFENesin-DM 600/30MG [Mucinex 1 tab PO DAILY 02/13/16 04/01/17 History Dm] Calcium Carbonate [Calcium] 600 mg PO DAILY 02/24/17 04/01/17 History Melatonin 3 mg PO HS 02/24/17 04/01/17 History busPIRone HCl [Buspar] 5 mg PO BID 02/24/17 04/01/17 History predniSONE 10 mg PO DAILY #0 02/26/17 04/01/17 Rx Albuterol Nebulized [Ventolin 2.5 mg INHALATION RT-QID 04/01/17 04/01/17 History Nebulized] Allergies Allergy/AdvReac Type Severity Reaction Status Date / Time No Known Allergies Allergy Verified 04/01/17 10:13 Physical Exam Vitals: Vital Signs Temp Pulse Pulse Resp BP BP Pulse Ox 04/02/17 10:56 102 H 04/02/17 08:30 112 H 24 04/02/17 08:00 97.6 F 100 112 H 24 103/60 94 L 04/02/17 07:45 96 04/02/17 04:00 97.5 F L 81 15 105/62 97 04/02/17 00:00 88 19 105/58 95 04/01/17 20:37 104 H 04/01/17 20:24 108 H 04/01/17 20:00 97.5 F L 89 16 102/54 96 04/01/17 15:42 100 04/01/17 15:30 102 H 93 L 04/01/17 14:20 98.9 F 95 20 104/58 96 04/01/17 13:40 93 18 97/55 95 04/01/17 12:15 98.9 F 100 20 113/56 95 Intake and Output 04/01/17 04/02/17 04/02/17 22:59 06:59 14:59 Intake Total 605 240 Output Total 500 Balance 605 -260 Intake: Intake, IV Titration 125 Amount Vancomycin 1,500 mg In 125 Sodium Chloride 0.9% 250 ml @ 125 mls/hr IVPB Q12HR [facility] Rx#:[id number] Oral 480 240 Output: Urine 500 Other: Voiding Method Toilet Toilet Toilet Weight 80.2 kg GENERAL EXAM: Alert, active, comfortable in no apparent distress. HEAD: Normocephalic. EYES: Normal reaction of pupils, equal size. NOSE: Clear with pink turbinates. THROAT: No erythema or exudates. NECK: No masses, no JVD. CHEST: No chest wall deformity. LUNGS: Equal air entry with crackles in the right mid lung. End expiratory wheeze. Diminished. CVS: S1 and S2 normal with no audible murmur, regular rhythm. ABDOMEN: No hepatosplenomegaly, normal bowel sounds, no guarding or rigidity. SPINE: No scoliosis or deformity SKIN: No rashes CENTRAL NERVOUS SYSTEM: No focal deficits, tone is normal in all 4 extremities. EXTREMITIES: There is no peripheral edema. No clubbing, no cyanosis. Peripheral pulses are intact. Results - Laboratory Findings CBC and BMP: 04/02/17 06:32 04/02/17 06:32 PT/INR, D-dimer PT 11.4 sec (9.0-12.0) 04/01/17 10:00 INR 1.2 (<1.2) H 04/01/17 10:00 Abnormal lab findings: Abnormal Labs 04/01/17 04/01/17 04/01/17 10:00 10:00 10:00 WBC 19.6 H RBC Hgb 12.5 L Hct MCHC Neutrophils # 17.5 H Lymphocytes # INR Chloride BUN 22 H Glucose 118 H POC Glucose (mg/dL) Total Bilirubin 1.5 H Total Creatine Kinase 28 L Troponin I 0.039 H* Total Protein 5.8 L Albumin 3.1 L 04/01/17 04/01/17 04/02/17 10:00 20:44 06:07 WBC RBC Hgb Hct MCHC Neutrophils # Lymphocytes # INR 1.2 H Chloride BUN Glucose POC Glucose (mg/dL) 187 H 147 H Total Bilirubin Total Creatine Kinase Troponin I Total Protein Albumin 04/02/17 04/02/17 04/02/17 06:32 06:32 11:08 WBC 18.7 H RBC 3.66 L Hgb 10.1 L Hct 32.8 L MCHC 30.7 L Neutrophils # 17.7 H Lymphocytes # 0.6 L INR Chloride 108 H BUN Glucose 136 H POC Glucose (mg/dL) 142 H Total Bilirubin Total Creatine Kinase Troponin I Total Protein Albumin - Diagnostic Findings Chest x-ray: image reviewed Assessment and Plan Assessment: Impression: #1 Acute right mid lung pneumonia with recent sputum cultures positive for Pseudomonas aeruginosa and methicillin-resistant Staphylococcus aureus. Initiated on vancomycin and Levaquin. Influenza screen negative. #2 Acute febrile illness secondary to above. #3 Acute on chronic hypoxic respiratory failure secondary to above. #4 Acute exacerbation of chronic obstructive pulmonary disease secondary to above. Treated with Advair, Spiriva and albuterol in the outpatient setting. #5 History of prostate cancer treated with radiation therapy. Currently on Flomax. #7 History of anxiety/depression. Currently on BuSpar and Celexa. #8 Hyperlipidemia. Currently on simvastatin. #9 40 year 2 pack per day smoking history however quit back in 1991. Plan: The patient was seen and evaluated by Dr. Srivastava. His chest x-ray labs and microbiology were reviewed. We'll continue with vancomycin and Levaquin for now. Another sputum cultures pending. We'll continue his treatment for COPD including IV Solu-Medrol, Symbicort, DuoNeb inhalations. We will increase his activity as tolerated. He is on heparin for DVT prophylaxis. We'll continue to follow and make further recommendations based on his clinical status. I, the cosigning physician, performed a history & physical examination of the patient. Lungs sounds with few scattered rhonchi more so on the right mid lung. Maintaining good O2 saturations in the 90s on 5 L/m per nasal cannula. I discussed the assessment and plan of care with my nurse practitioner, Ce Tan. I attest to the above note as dictated by her. Time with Patient: Greater than 30
[2017-04-02] MEDS: MULTIVITAMINS, THERA 1 EACH TAB PO SCH (12:16)
[2017-04-02 16:21] LABS: Glucose,Whole Blood 185 mg/dL (75-99)
[2017-04-02] MEDS: LEVOFLOXACIN 500 MG TAB PO SCH (17:45)
[2017-04-02 20:48] LABS: Glucose,Whole Blood 144 mg/dL (75-99)
[2017-04-02] MEDS: MELATONIN 3 MG TABLET PO SCH (21:28)
[2017-04-02] MEDS: ASPIRIN 81 MG PO SCH (21:28)
[2017-04-02] MEDS: ATORVASTATIN 10 MG TAB PO SCH (21:28)
[2017-04-02] MEDS: TAMSULOSIN 0.4 MG CAP.ER.24H PO SCH (21:29)
[2017-04-02] MEDS: CITALOPRAM HYDROBROMIDE 20 MG TAB PO SCH (21:29)
[2017-04-03] MEDS: methylPREDNISolone SOD SUCCI 125 MG/2 ML VIAL IV SCH ×5 (00:21→23:03)
[2017-04-03 05:59] LABS: Glucose,Whole Blood 143 mg/dL (75-99)
[2017-04-03] MEDS: INSULIN ASPART 100 UNIT/ML 1 ML 10 ML VIAL SQ SCH ×4 (06:47→21:35)
[2017-04-03] MEDS ORDERED: VANCOMYCIN TROUGH DUE 1 EACH MISC MISCELLANE ONE (08:00)
[2017-04-03] MEDS: IPRATROPIUM-ALBUTEROL 3 ML NEB INHALATION SCH ×4 (08:27→20:52)
[2017-04-03] MEDS: SYMBICORT 160-4.5 MCG INHALER INHALATION SCH ×2 (08:27→20:52)
[2017-04-03] MEDS: guaiFENesin-DM 600/30MG 1 EACH TAB.ER.12H PO SCH (09:48)
[2017-04-03] MEDS: VANCOMYCIN 1,500 MG in SODIUM CHLORIDE 0.9% 250 ML IVPB SCH ×3 (09:48→23:02)
[2017-04-03] MEDS: HEPARIN SODIUM,PORCINE 5,000 UNIT/ML 1 ML VIAL SQ SCH ×2 (09:48→21:35)
[2017-04-03] MEDS: busPIRone HCl 5 MG TAB PO SCH ×2 (09:48→21:35)
[2017-04-03 11:34] LABS: Anisocytosis Slight; Basophils % (A) 0 %; Eosinophils # (A) 0.1 k/uL (0-0.7); Eosinophils % (A) 0 %; HCT 37.3 % (39.0-53.0); HGB 11.1 gm/dL (13.0-17.5); Hypochromasia Marked; Lymphocytes # (A) 0.3 k/uL (1.0-4.8); Lymphocytes % (A) 2 %; MCH 27.5 pg (25.0-35.0); MCHC 29.7 g/dL (31.0-37.0); MCV 92.5 fL (80.0-100.0); Mean Platelet Volume 11.4; Monocytes # (A) 0.7 k/uL (0-1.0); Monocytes % (A) 4 %; Neutrophils # (A) 16.2 k/uL (1.3-7.7); Neutrophils % (A) 94 %; Platelet Count 190 k/uL (150-450); RBC 4.04 m/uL (4.30-5.90); RDW 16.1 % (11.5-15.5); WBC 17.4 k/uL (3.8-10.6)
[2017-04-03 11:37] LABS: ALT 24 U/L (21-72); AST 26 U/L (17-59); Albumin 2.8 g/dL (3.5-5.0); Alkaline Phosphatase 73 U/L (38-126); Anion Gap 10 mmol/L; Blood Urea Nitrogen 20 mg/dL (9-20); Carbon Dioxide 25 mmol/L (22-30); Chloride 107 mmol/L (98-107); Glucose 114 mg/dL (74-99); Potassium 4.5 mmol/L (3.5-5.1); Sodium 142 mmol/L (137-145); Total Bilirubin 0.3 mg/dL (0.2-1.3); Total Protein 5.4 g/dL (6.3-8.2)
[2017-04-03 11:45] LABS: Glucose,Whole Blood 146 mg/dL (75-99)
--- NOTE | 2017-04-03 11:51 | P.PN ---
Subjective Progress Note Date: 04/03/17 Principal diagnosis: Acute right mid lung pneumonia. This is a very pleasant 81-year-old gentleman who follows with Dr. Carolina as his primary care physician. He has a history of prostate cancer treated with radiation therapy, hyperlipidemia, anxiety/depression. He also has a history of chronic obstructive pulmonary disease with a 40 year 2 pack per day smoking history. He did quit back in 1991. He is treated with Advair, Spiriva and albuterol in the outpatient setting. He was here one month ago for COPD exacerbation. His FEV1 value is 45% of predicted. Oxygen dependent. His influenza screen at that time was negative. He was found however to have pseudomonas aeruginosa positive sputum. A follow-up sputum on 03/28/2017 is positive for Pseudomonas along with methicillin resistant staph aureus. He presented here again yesterday to the emergency room with complaints of increasing shortness of breath, cough and congestion. He also had complaints of sharp right-sided chest discomfort. His chest x-ray shows areas of chronic emphysema changes with scattered fibrosis. There is a persistent right midlung lateral infiltrate which was new compared to previous. White count 18.7. He's had a T-max of 101.4. Currently on 5 L/m per nasal cannula. He has been initiated on vancomycin and Levaquin. The patient is seen again today 04/03/2017 in follow-up on the selective care unit. He is currently awake and alert in no acute distress. He is still having dyspnea with minimal conversation and minimal activity. He has been afebrile. Maintaining O2 saturations in the low 90s on 5 L high flow nasal cannula. Slightly tachycardic. Slightly tachypneic. Hemodynamically stable. Blood culture reveals no growth to date. Sputum culture reveals no growth. May need a better specimen. White count 17.4. Hemoglobin 11.1. Creatinine 0.69. He remains on vancomycin and Levaquin. Objective - Vital Signs Vital signs: Vital Signs Temp 97.8 F 04/03/17 08:00 Pulse 104 H 04/03/17 08:37 Resp 22 04/03/17 08:00 BP 128/57 04/03/17 08:00 Pulse Ox 91 L 04/03/17 08:00 Intake & Output 04/02/17 04/03/17 04/03/17 18:59 06:59 18:59 Intake Total 822 450 240 Output Total 1900 400 Balance -1078 50 240 Weight 81.5 kg Intake: Oral 822 450 240 Output: Urine 1900 400 Other: Voiding Method Toilet Toilet # Voids 1 - Exam GENERAL EXAM: Alert, active, comfortable in no apparent distress. HEAD: Normocephalic. EYES: Normal reaction of pupils, equal size. NOSE: Clear with pink turbinates. THROAT: No erythema or exudates. NECK: No masses, no JVD. CHEST: No chest wall deformity. LUNGS: Equal air entry with scattered rhonchi more so on the right. CVS: S1 and S2 normal with no audible murmur, regular rhythm. ABDOMEN: No hepatosplenomegaly, normal bowel sounds, no guarding or rigidity. SPINE: No scoliosis or deformity SKIN: No rashes CENTRAL NERVOUS SYSTEM: No focal deficits, tone is normal in all 4 extremities. EXTREMITIES: There is no peripheral edema. No clubbing, no cyanosis. Peripheral pulses are intact. - Labs CBC & Chem 7: 04/03/17 07:24 04/03/17 07:24 Labs: Abnormal Lab Results - Last 24 Hours (Table) 04/02/17 04/02/17 04/03/17 Range/Units 16:20 20:45 05:58 WBC (3.8-10.6) k/uL RBC (4.30-5.90) m/uL Hgb (13.0-17.5) gm/dL Hct (39.0-53.0) % MCHC (31.0-37.0) g/dL RDW (11.5-15.5) % Neutrophils # (1.3-7.7) k/uL Lymphocytes # (1.0-4.8) k/uL Glucose (74-99) mg/dL POC Glucose (mg/dL) 185 H 144 H 143 H (75-99) mg/dL Total Protein (6.3-8.2) g/dL Albumin (3.5-5.0) g/dL 04/03/17 04/03/17 Range/Units 07:24 07:24 WBC 17.4 H (3.8-10.6) k/uL RBC 4.04 L (4.30-5.90) m/uL Hgb 11.1 L (13.0-17.5) gm/dL Hct 37.3 L (39.0-53.0) % MCHC 29.7 L (31.0-37.0) g/dL RDW 16.1 H (11.5-15.5) % Neutrophils # 16.2 H (1.3-7.7) k/uL Lymphocytes # 0.3 L (1.0-4.8) k/uL Glucose 114 H (74-99) mg/dL POC Glucose (mg/dL) (75-99) mg/dL Total Protein 5.4 L (6.3-8.2) g/dL Albumin 2.8 L (3.5-5.0) g/dL Microbiology - Last 24 Hours (Table) 04/01/17 10:00 Blood Culture - Preliminary Blood No Growth after 24 hours 04/02/17 05:00 Gram Stain - Final Sputum Sputum Culture - Final Assessment and Plan Assessment: Impression: #1 Acute right mid lung pneumonia with recent sputum cultures positive for Pseudomonas aeruginosa and methicillin-resistant Staphylococcus aureus. Initiated on vancomycin and Levaquin. Influenza screen negative. Follow-up sputum sample pending. #2 Acute febrile illness secondary to above. #3 Acute on chronic hypoxic respiratory failure secondary to above. #4 Acute exacerbation of chronic obstructive pulmonary disease secondary to above. Treated with Advair, Spiriva and albuterol in the outpatient setting. #5 History of prostate cancer treated with radiation therapy. Currently on Flomax. #7 History of anxiety/depression. Currently on BuSpar and Celexa. #8 Hyperlipidemia. Currently on simvastatin. #9 40 year 2 pack per day smoking history however quit back in 1991. Plan: The patient was seen and evaluated by Dr. Srivastava. Slightly improved but still not back to his baseline. We'll continue with vancomycin and Levaquin for now. Another sputum culture is pending. We'll continue his treatment for COPD including IV Solu-Medrol, Symbicort, DuoNeb inhalations. We will increase his activity as tolerated. He is on heparin for DVT prophylaxis. We'll continue to follow and make further recommendations based on his clinical status. I, the cosigning physician, performed a history & physical examination of the patient. Lungs sounds with few scattered rhonchi more so on the right mid lung. Maintaining good O2 saturations in the 90s on 5 L/m per nasal cannula. I discussed the assessment and plan of care with my nurse practitioner, Ce Tan. I attest to the above note as dictated by her.
[2017-04-03] MEDS: MULTIVITAMINS, THERA 1 EACH TAB PO SCH (12:36)
[2017-04-03] MEDS: ASCORBIC ACID 500 MG TAB PO SCH (12:36)
[2017-04-03] MEDS: CALCIUM CARBONATE 500 MG CHEWABLE PO SCH (12:36)
[2017-04-03] MEDS: SODIUM CHLORIDE 0.9% 1,000 ML IV SCH (13:08)
[2017-04-03 16:26] LABS: Glucose,Whole Blood 144 mg/dL (75-99)
[2017-04-03] MEDS: LEVOFLOXACIN 500 MG TAB PO SCH (18:09)
[2017-04-03 20:45] LABS: Glucose,Whole Blood 148 mg/dL (75-99)
[2017-04-03] MEDS: MELATONIN 3 MG TABLET PO SCH (21:35)
[2017-04-03] MEDS: CITALOPRAM HYDROBROMIDE 20 MG TAB PO SCH (21:35)
[2017-04-03] MEDS: TAMSULOSIN 0.4 MG CAP.ER.24H PO SCH (21:35)
[2017-04-03] MEDS: ATORVASTATIN 10 MG TAB PO SCH (21:35)
[2017-04-03] MEDS: ASPIRIN 81 MG PO SCH (21:36)
--- NOTE | 2017-04-03 22:22 | P.PN ---
Subjective Progress Note Date: 04/02/17 Principal diagnosis: Pneumonia Patient is a 81-year-old male with a known history of COPD, hypertension and recent Pseudomonas sputum culture with pneumonia came to ER with complaints of worsening shortness of breath for the past 2 days. Patient has been having fever and tiredness and right-sided sharp chest pain to by 10 severity that increases with breathing. Patient did have pneumonia with positive sputum cultures with Pseudomonas and was treated with ciprofloxacin. Patient completed antibiotic course last Saturday and was told to view sputum sample again 2 days lateral. Sputum cultures done on 03/28/2017 showed MRSA and Pseudomonas. Patient does follow with Dr. Dennison as an outpatient. Patient was started on vancomycin and Zosyn at this time. Otherwise patient denied any nausea vomiting or abdominal pain. Patient did have remote history of smoking. Patient was saturating in the 80s and he came to the hospital. Patient was tachycardic, tachypneic and febrile with T-max 101.4 while in the hospital. 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 Extensive perihilar infiltrate in the right lung and left lung base. 04/02/2017 Patient's breathing status slightly improved otherwise still dyspneic with ambulation. Continued on antibiotics and steroids and breathing treatments. WBC count slightly improved. Pulmonary is following. Another sputum sample was sent. All other review of systems negative except the above. current medications reviewed Objective - Vital Signs Vital signs: Vital Signs Temp 98.5 F 04/02/17 16:00 Pulse 106 H 04/02/17 21:17 Resp 24 04/02/17 16:00 BP 120/65 04/02/17 16:00 Pulse Ox 92 L 04/02/17 20:59 Intake & Output 04/02/17 04/02/17 04/03/17 06:59 18:59 06:59 Intake Total 605 822 Output Total 1900 Balance 605 -1078 Weight 80.2 kg Intake: Intake, IV Titration 125 Amount Vancomycin 1,500 mg In 125 Sodium Chloride 0.9% 250 ml @ 125 mls/hr IVPB Q12HR [facility] Rx#:[id number] Oral 480 822 Output: Urine 1900 Other: Voiding Method Toilet Toilet - Exam Patient is lying in the bed comfortably, no acute distress, awake alert and oriented.. HEENT: Normocephalic. Neck is supple. Pupils reactive. Nostrils clear. Oral cavity is moist. Ears reveal no drainage. Neck reveals no JVD, carotid bruits, or thyromegaly. CHEST EXAMINATION: Trachea is central. Symmetrical expansion. Diminished air entry bibasilar . Minimal expiratory wheezing. No crackles CARDIAC: Normal S1, S2 with no gallops. No murmurs ABDOMEN: Soft. Bowel sounds normal. No organomegaly. No abdominal bruits. Extremities: reveal no edema. No clubbing or cyanosis Neurologically awake, alert, oriented x3 with well-coordinated movements. No focal deficits noted Skin: No rash or skin lesions. Psychiatric: Coperative. Nonsuicidal Musculoskeletal: No joint swelling or deformity. Normal range of motion. - Labs CBC & Chem 7: 04/03/17 07:24 04/03/17 07:24 Labs: Abnormal Lab Results - Last 24 Hours (Table) 04/02/17 04/02/17 04/02/17 Range/Units 06:07 06:32 06:32 WBC 18.7 H (3.8-10.6) k/uL RBC 3.66 L (4.30-5.90) m/uL Hgb 10.1 L (13.0-17.5) gm/dL Hct 32.8 L (39.0-53.0) % MCHC 30.7 L (31.0-37.0) g/dL Neutrophils # 17.7 H (1.3-7.7) k/uL Lymphocytes # 0.6 L (1.0-4.8) k/uL Chloride 108 H (98-107) mmol/L Glucose 136 H (74-99) mg/dL POC Glucose (mg/dL) 147 H (75-99) mg/dL 04/02/17 04/02/17 04/02/17 Range/Units 11:08 16:20 20:45 WBC (3.8-10.6) k/uL RBC (4.30-5.90) m/uL Hgb (13.0-17.5) gm/dL Hct (39.0-53.0) % MCHC (31.0-37.0) g/dL Neutrophils # (1.3-7.7) k/uL Lymphocytes # (1.0-4.8) k/uL Chloride (98-107) mmol/L Glucose (74-99) mg/dL POC Glucose (mg/dL) 142 H 185 H 144 H (75-99) mg/dL Microbiology - Last 24 Hours (Table) 04/01/17 10:00 Blood Culture - Preliminary Blood No Growth after 24 hours 04/02/17 05:00 Gram Stain - Final Sputum Sputum Culture - Final Assessment and Plan Assessment: Extensive right perihilar infiltrate with pneumonia. Sputum culture showed MRSA and Pseudomonas recently Sepsis secondary to pneumonia History of Pseudomonas pneumonia February 2017 COPD with exacerbation COPD severe with an FEV1 of 45% predicted at baseline prostate cancer treated by radiation therapy chronic anxiety/depression hyperlipidemia maintained on Zocor DVT prophylaxis Plan: Patient be continued on antibiotics in the form of vancomycin and Zosyn. Follow culture reports. Repeat sputum culture was sent. Pulmonary is following.. Continue with the steroids and breathing treatments and follow closely. Further conditions based on the clinical course. Prognosis is guarded. Time with Patient: Greater than 30
--- NOTE | 2017-04-03 22:24 | P.PN ---
Subjective Progress Note Date: 04/03/17 Principal diagnosis: Pneumonia Patient is a 81-year-old male with a known history of COPD, hypertension and recent Pseudomonas sputum culture with pneumonia came to ER with complaints of worsening shortness of breath for the past 2 days. Patient has been having fever and tiredness and right-sided sharp chest pain to by 10 severity that increases with breathing. Patient did have pneumonia with positive sputum cultures with Pseudomonas and was treated with ciprofloxacin. Patient completed antibiotic course last Saturday and was told to view sputum sample again 2 days lateral. Sputum cultures done on 03/28/2017 showed MRSA and Pseudomonas. Patient does follow with Dr. Dennison as an outpatient. Patient was started on vancomycin and Zosyn at this time. Otherwise patient denied any nausea vomiting or abdominal pain. Patient did have remote history of smoking. Patient was saturating in the 80s and he came to the hospital. Patient was tachycardic, tachypneic and febrile with T-max 101.4 while in the hospital. 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 Extensive perihilar infiltrate in the right lung and left lung base. 04/02/2017 Patient's breathing status slightly improved otherwise still dyspneic with ambulation. Continued on antibiotics and steroids and breathing treatments. WBC count slightly improved. Pulmonary is following. Another sputum sample was sent. 04/03/2017 Sputum culture and blood culture showed no growth so far. Patient is still dyspneic with ambulation. Continued on current management. No acute overnight issues. All other review of systems negative except the above. current medications reviewed Objective - Vital Signs Vital signs: Vital Signs Temp 97.2 F L 04/03/17 16:00 Pulse 104 H 04/03/17 20:52 Resp 20 04/03/17 16:00 BP 124/85 04/03/17 16:00 Pulse Ox 91 L 04/03/17 16:00 Intake & Output 04/03/17 04/03/17 04/04/17 06:59 18:59 06:59 Intake Total 450 840 Output Total 400 900 Balance 50 -60 Weight 81.5 kg Intake: Oral 450 840 Output: Urine 400 900 Other: Voiding Method Toilet # Voids 1 - Exam Patient is lying in the bed comfortably, no acute distress, awake alert and oriented.. HEENT: Normocephalic. Neck is supple. Pupils reactive. Nostrils clear. Oral cavity is moist. Ears reveal no drainage. Neck reveals no JVD, carotid bruits, or thyromegaly. CHEST EXAMINATION: Trachea is central. Symmetrical expansion. Diminished air entry bibasilar . Minimal expiratory wheezing. No crackles CARDIAC: Normal S1, S2 with no gallops. No murmurs ABDOMEN: Soft. Bowel sounds normal. No organomegaly. No abdominal bruits. Extremities: reveal no edema. No clubbing or cyanosis Neurologically awake, alert, oriented x3 with well-coordinated movements. No focal deficits noted Skin: No rash or skin lesions. Psychiatric: Coperative. Nonsuicidal Musculoskeletal: No joint swelling or deformity. Normal range of motion. - Labs CBC & Chem 7: 04/03/17 07:24 04/03/17 07:24 Labs: Abnormal Lab Results - Last 24 Hours (Table) 04/03/17 04/03/17 04/03/17 Range/Units 05:58 07:24 07:24 WBC 17.4 H (3.8-10.6) k/uL RBC 4.04 L (4.30-5.90) m/uL Hgb 11.1 L (13.0-17.5) gm/dL Hct 37.3 L (39.0-53.0) % MCHC 29.7 L (31.0-37.0) g/dL RDW 16.1 H (11.5-15.5) % Neutrophils # 16.2 H (1.3-7.7) k/uL Lymphocytes # 0.3 L (1.0-4.8) k/uL Glucose 114 H (74-99) mg/dL POC Glucose (mg/dL) 143 H (75-99) mg/dL Total Protein 5.4 L (6.3-8.2) g/dL Albumin 2.8 L (3.5-5.0) g/dL 04/03/17 04/03/17 04/03/17 Range/Units 11:41 16:21 20:43 WBC (3.8-10.6) k/uL RBC (4.30-5.90) m/uL Hgb (13.0-17.5) gm/dL Hct (39.0-53.0) % MCHC (31.0-37.0) g/dL RDW (11.5-15.5) % Neutrophils # (1.3-7.7) k/uL Lymphocytes # (1.0-4.8) k/uL Glucose (74-99) mg/dL POC Glucose (mg/dL) 146 H 144 H 148 H (75-99) mg/dL Total Protein (6.3-8.2) g/dL Albumin (3.5-5.0) g/dL Microbiology - Last 24 Hours (Table) 04/01/17 10:00 Blood Culture - Preliminary Blood No Growth after 48 hours Assessment and Plan Assessment: Extensive right perihilar infiltrate with pneumonia. Sputum culture showed MRSA and Pseudomonas recently Sepsis secondary to pneumonia History of Pseudomonas pneumonia February 2017 COPD with exacerbation COPD severe with an FEV1 of 45% predicted at baseline prostate cancer treated by radiation therapy chronic anxiety/depression hyperlipidemia maintained on Zocor DVT prophylaxis Plan: Patient be continued on antibiotics in the form of vancomycin and Zosyn. Follow culture reports. Repeat sputum culture was sent. No growth so far. Pulmonary is following.. Continue with the steroids and breathing treatments and follow closely. Further conditions based on the clinical course. Prognosis is guarded. Time with Patient: Greater than 30
[2017-04-04 05:50] LABS: Glucose,Whole Blood 146 mg/dL (75-99)
[2017-04-04 06:10] LABS: Anion Gap 4 mmol/L; Blood Urea Nitrogen 21 mg/dL (9-20); Calcium 8.1 mg/dL (8.4-10.2); Carbon Dioxide 29 mmol/L (22-30); Chloride 105 mmol/L (98-107); Glucose 137 mg/dL (74-99); Sodium 138 mmol/L (137-145)
[2017-04-04] MEDS: INSULIN ASPART 100 UNIT/ML 1 ML 10 ML VIAL SQ SCH ×4 (06:36→22:04)
[2017-04-04] MEDS: methylPREDNISolone SOD SUCCI 125 MG/2 ML VIAL IV SCH ×3 (06:36→18:24)
[2017-04-04] MEDS: busPIRone HCl 5 MG TAB PO SCH ×2 (09:04→20:39)
[2017-04-04] MEDS: SODIUM CHLORIDE 0.9% 1,000 ML IV SCH (09:05)
[2017-04-04] MEDS: guaiFENesin-DM 600/30MG 1 EACH TAB.ER.12H PO SCH (09:05)
[2017-04-04] MEDS: VANCOMYCIN 1,500 MG in SODIUM CHLORIDE 0.9% 250 ML IVPB SCH ×3 (09:05→20:39)
[2017-04-04] MEDS: SYMBICORT 160-4.5 MCG INHALER INHALATION SCH (09:07)
[2017-04-04] MEDS: IPRATROPIUM-ALBUTEROL 3 ML NEB INHALATION SCH ×4 (09:07→20:36)
[2017-04-04] MEDS: HEPARIN SODIUM,PORCINE 5,000 UNIT/ML 1 ML VIAL SQ SCH ×2 (09:15→22:07)
[2017-04-04 11:25] LABS: Glucose,Whole Blood 131 mg/dL (75-99)
--- NOTE | 2017-04-04 12:27 | P.PN ---
Subjective Progress Note Date: 04/04/17 Principal diagnosis: Acute right mid lung pneumonia. This is a very pleasant 81-year-old gentleman who follows with Dr. Carolina as his primary care physician. He has a history of prostate cancer treated with radiation therapy, hyperlipidemia, anxiety/depression. He also has a history of chronic obstructive pulmonary disease with a 40 year 2 pack per day smoking history. He did quit back in 1991. He is treated with Advair, Spiriva and albuterol in the outpatient setting. He was here one month ago for COPD exacerbation. His FEV1 value is 45% of predicted. Oxygen dependent. His influenza screen at that time was negative. He was found however to have pseudomonas aeruginosa positive sputum. A follow-up sputum on 03/28/2017 is positive for Pseudomonas along with methicillin resistant staph aureus. He presented here again yesterday to the emergency room with complaints of increasing shortness of breath, cough and congestion. He also had complaints of sharp right-sided chest discomfort. His chest x-ray shows areas of chronic emphysema changes with scattered fibrosis. There is a persistent right midlung lateral infiltrate which was new compared to previous. White count 18.7. He's had a T-max of 101.4. Currently on 5 L/m per nasal cannula. He has been initiated on vancomycin and Levaquin. The patient is seen again today 04/03/2017 in follow-up on the selective care unit. He is currently awake and alert in no acute distress. He is still having dyspnea with minimal conversation and minimal activity. He has been afebrile. Maintaining O2 saturations in the low 90s on 5 L high flow nasal cannula. Slightly tachycardic. Slightly tachypneic. Hemodynamically stable. Blood culture reveals no growth to date. Sputum culture reveals no growth. May need a better specimen. White count 17.4. Hemoglobin 11.1. Creatinine 0.69. He remains on vancomycin and Levaquin. The patient is seen again today 04/04/2017 in follow-up on the selective care unit. He is currently resting in bed. He is awake and alert in no acute distress. He continues with a loose productive cough. He has been slow to progress. He is continued on vancomycin and Levaquin. Follow-up sputum was insufficient. Attempt to obtain a repeat sputum. He is utilizing 55% Ventimask to maintain O2 saturations in the 90s. He has been afebrile. Slightly tachycardia. Blood pressure stable. Follow-up chest x-ray pending. Objective - Vital Signs Vital signs: Vital Signs Temp 97.2 F L 04/04/17 04:00 Pulse 105 H 04/04/17 12:06 Resp 20 04/04/17 04:00 BP 122/81 04/04/17 04:00 Pulse Ox 88 L 04/04/17 09:08 Intake & Output 04/03/17 04/04/17 04/04/17 18:59 06:59 18:59 Intake Total 840 200 476 Output Total 900 200 Balance -60 0 476 Weight 82.5 kg Intake: Oral 840 200 476 Output: Urine 900 200 Other: # Voids 1 1 - Exam GENERAL EXAM: Alert, comfortable. HEAD: Normocephalic. EYES: Normal reaction of pupils, equal size. NOSE: Clear with pink turbinates. THROAT: No erythema or exudates. NECK: No masses, no JVD. CHEST: No chest wall deformity. LUNGS: Equal air entry with scattered rhonchi more so on the right, crackles in the posterior bases. CVS: S1 and S2 normal with no audible murmur, regular rhythm. ABDOMEN: No hepatosplenomegaly, normal bowel sounds, no guarding or rigidity. SPINE: No scoliosis or deformity SKIN: No rashes. Areas of ecchymosis. CENTRAL NERVOUS SYSTEM: No focal deficits, tone is normal in all 4 extremities. EXTREMITIES: There is no peripheral edema. No clubbing, no cyanosis. Peripheral pulses are intact. - Labs CBC & Chem 7: 04/03/17 07:24 04/04/17 05:30 Labs: Abnormal Lab Results - Last 24 Hours (Table) 04/03/17 04/03/17 04/04/17 Range/Units 16:21 20:43 05:30 BUN 21 H (9-20) mg/dL Glucose 137 H (74-99) mg/dL POC Glucose (mg/dL) 144 H 148 H (75-99) mg/dL Calcium 8.1 L (8.4-10.2) mg/dL 04/04/17 04/04/17 Range/Units 05:44 11:23 BUN (9-20) mg/dL Glucose (74-99) mg/dL POC Glucose (mg/dL) 146 H 131 H (75-99) mg/dL Calcium (8.4-10.2) mg/dL Microbiology - Last 24 Hours (Table) 04/01/17 10:00 Blood Culture - Preliminary Blood No Growth after 72 hours Assessment and Plan Assessment: Impression: #1 Acute right mid lung pneumonia with recent sputum cultures positive for Pseudomonas aeruginosa and methicillin-resistant Staphylococcus aureus. Initiated on vancomycin and Levaquin. Influenza screen negative. Follow-up sputum sample pending. #2 Acute febrile illness secondary to above. #3 Acute on chronic hypoxic respiratory failure secondary to above. #4 Acute exacerbation of chronic obstructive pulmonary disease secondary to above. Treated with Advair, Spiriva and albuterol in the outpatient setting. #5 History of prostate cancer treated with radiation therapy. Currently on Flomax. #7 History of anxiety/depression. Currently on BuSpar and Celexa. #8 Hyperlipidemia. Currently on simvastatin. #9 40 year 2 pack per day smoking history however quit back in 1991. Plan: The patient was seen and evaluated by Dr. Warren. Still not back to his baseline. Currently on 55% Ventimask to maintain O2 saturations in the 90s. May require bronchoscopy and BAL. We'll continue with vancomycin and Levaquin for now. Another sputum culture is pending. Chest x-ray pending. We'll continue his treatment including IV Solu-Medrol, Pulmicort and Perforomist, DuoNeb inhalations. He is on heparin for DVT prophylaxis. We'll continue to follow and make further recommendations based on his clinical status. I, the cosigning physician, performed a history & physical examination of the patient. Lungs sounds with few scattered rhonchi more so on the right mid lung. Maintaining O2 saturations in the 90s on 35% Ventimask. I discussed the assessment and plan of care with my nurse practitioner, Ce Tan. I attest to the above note as dictated by her.
[2017-04-04] MEDS: MULTIVITAMINS, THERA 1 EACH TAB PO SCH (13:08)
[2017-04-04] MEDS: ASCORBIC ACID 500 MG TAB PO SCH (13:08)
[2017-04-04] MEDS: CALCIUM CARBONATE 500 MG CHEWABLE PO SCH (13:08)
[2017-04-04] MEDS: PIPERACILLIN-TAZOBACTAM 3.375 GM in DEXTROSE/WATER 1 50ML.BAG IVPB SCH ×2 (15:57→23:00)
[2017-04-04 16:53] LABS: Glucose,Whole Blood 161 mg/dL (75-99)
[2017-04-04] MEDS: LEVOFLOXACIN 500 MG TAB PO SCH (18:24)
[2017-04-04] MEDS: BUDESONIDE 1 MG/2 ML NEBU INHALATION SCH (20:36)
[2017-04-04] MEDS: CITALOPRAM HYDROBROMIDE 20 MG TAB PO SCH (20:39)
[2017-04-04] MEDS: ATORVASTATIN 10 MG TAB PO SCH (20:39)
[2017-04-04] MEDS: TAMSULOSIN 0.4 MG CAP.ER.24H PO SCH (20:39)
[2017-04-04] MEDS: MELATONIN 3 MG TABLET PO SCH (20:39)
[2017-04-04] MEDS: FORMOTEROL FUMARATE 20 MCG/2 ML NEBU INHALATION SCH (20:47)
[2017-04-04 21:10] LABS: Glucose,Whole Blood 136 mg/dL (75-99)
[2017-04-04] MEDS: ASPIRIN 81 MG PO SCH (22:07)
[2017-04-05] MEDS: VANCOMYCIN 1,500 MG in SODIUM CHLORIDE 0.9% 250 ML IVPB SCH ×3 (03:42→20:26)
[2017-04-05 05:57] LABS: Glucose,Whole Blood 167 mg/dL (75-99)
[2017-04-05 06:23] LABS: Anion Gap 5 mmol/L; Blood Urea Nitrogen 28 mg/dL (9-20); Calcium 7.8 mg/dL (8.4-10.2); Carbon Dioxide 31 mmol/L (22-30); Chloride 103 mmol/L (98-107); Glucose 143 mg/dL (74-99); Potassium 4.1 mmol/L (3.5-5.1); Sodium 139 mmol/L (137-145)
[2017-04-05] MEDS: methylPREDNISolone SOD SUCCI 125 MG/2 ML VIAL IV SCH ×5 (06:45→23:30)
[2017-04-05] MEDS: INSULIN ASPART 100 UNIT/ML 1 ML 10 ML VIAL SQ SCH ×4 (06:46→21:56)
[2017-04-05] MEDS: busPIRone HCl 5 MG TAB PO SCH ×2 (08:53→20:26)
[2017-04-05] MEDS: PIPERACILLIN-TAZOBACTAM 3.375 GM in DEXTROSE/WATER 1 50ML.BAG IVPB SCH ×3 (08:53→23:37)
[2017-04-05] MEDS: HEPARIN SODIUM,PORCINE 5,000 UNIT/ML 1 ML VIAL SQ SCH ×2 (08:53→20:26)
[2017-04-05] MEDS: guaiFENesin-DM 600/30MG 1 EACH TAB.ER.12H PO SCH (08:53)
[2017-04-05] MEDS: BUDESONIDE 1 MG/2 ML NEBU INHALATION SCH ×2 (09:19→21:20)
[2017-04-05] MEDS: FORMOTEROL FUMARATE 20 MCG/2 ML NEBU INHALATION SCH ×2 (09:19→21:20)
[2017-04-05] MEDS: IPRATROPIUM-ALBUTEROL 3 ML NEB INHALATION SCH ×4 (09:19→21:20)
--- NOTE | 2017-04-05 10:52 | P.PN ---
Subjective Progress Note Date: 04/05/17 Principal diagnosis: Acute right mid lung pneumonia. This is a very pleasant 81-year-old gentleman who follows with Dr. Carolina as his primary care physician. He has a history of prostate cancer treated with radiation therapy, hyperlipidemia, anxiety/depression. He also has a history of chronic obstructive pulmonary disease with a 40 year 2 pack per day smoking history. He did quit back in 1991. He is treated with Advair, Spiriva and albuterol in the outpatient setting. He was here one month ago for COPD exacerbation. His FEV1 value is 45% of predicted. Oxygen dependent. His influenza screen at that time was negative. He was found however to have pseudomonas aeruginosa positive sputum. A follow-up sputum on 03/28/2017 is positive for Pseudomonas along with methicillin resistant staph aureus. He presented here again yesterday to the emergency room with complaints of increasing shortness of breath, cough and congestion. He also had complaints of sharp right-sided chest discomfort. His chest x-ray shows areas of chronic emphysema changes with scattered fibrosis. There is a persistent right midlung lateral infiltrate which was new compared to previous. White count 18.7. He's had a T-max of 101.4. Currently on 5 L/m per nasal cannula. He has been initiated on vancomycin and Levaquin. The patient is seen again today 04/03/2017 in follow-up on the selective care unit. He is currently awake and alert in no acute distress. He is still having dyspnea with minimal conversation and minimal activity. He has been afebrile. Maintaining O2 saturations in the low 90s on 5 L high flow nasal cannula. Slightly tachycardic. Slightly tachypneic. Hemodynamically stable. Blood culture reveals no growth to date. Sputum culture reveals no growth. May need a better specimen. White count 17.4. Hemoglobin 11.1. Creatinine 0.69. He remains on vancomycin and Levaquin. The patient is seen again today 04/04/2017 in follow-up on the selective care unit. He is currently resting in bed. He is awake and alert in no acute distress. He continues with a loose productive cough. He has been slow to progress. He is continued on vancomycin and Levaquin. Follow-up sputum was insufficient. Attempt to obtain a repeat sputum. He is utilizing 55% Ventimask to maintain O2 saturations in the 90s. He has been afebrile. Slightly tachycardia. Blood pressure stable. Follow-up chest x-ray pending. The patient is seen again today 04/05/2017 in follow-up on the selective care unit. He is awake and alert in no acute distress. He is breathing a bit better today as compared to yesterday. We were able to titrate down the FiO2 to 8 L high flow nasal cannula. Yesterday's chest x-ray did show some worsening right lung pneumonia as well as some left lower lung infiltrate. He rested well last night. He was initiated on Zosyn yesterday in addition to the vancomycin and Levaquin. Creatinine 0.70. He remains afebrile. Hemodynamically stable. Objective - Vital Signs Vital signs: Vital Signs Temp 97.6 F 04/05/17 03:45 Pulse 104 H 04/05/17 09:41 Resp 20 04/05/17 03:45 BP 122/63 04/05/17 03:45 Pulse Ox 94 L 04/05/17 03:45 Intake & Output 04/04/17 04/05/17 04/05/17 18:59 06:59 18:59 Intake Total 948 250 240 Output Total 300 250 Balance 648 250 -10 Weight 83.1 kg Intake: Intake, IV Titration 250 Amount Vancomycin 1,500 mg In 250 Sodium Chloride 0.9% 250 ml @ 125 mls/hr IVPB Q8H [facility] Rx#:[id number] Oral 948 240 Output: Urine 300 250 Other: # Voids 1 500 - Exam GENERAL EXAM: Alert, comfortable. HEAD: Normocephalic. EYES: Normal reaction of pupils, equal size. NOSE: Clear with pink turbinates. THROAT: No erythema or exudates. NECK: No masses, no JVD. CHEST: No chest wall deformity. LUNGS: Equal air entry with scattered rhonchi more so on the right, crackles in the posterior bases. CVS: S1 and S2 normal with no audible murmur, regular rhythm. ABDOMEN: No hepatosplenomegaly, normal bowel sounds, no guarding or rigidity. SPINE: No scoliosis or deformity SKIN: No rashes. Areas of ecchymosis. CENTRAL NERVOUS SYSTEM: No focal deficits, tone is normal in all 4 extremities. EXTREMITIES: There is no peripheral edema. No clubbing, no cyanosis. Peripheral pulses are intact. - Labs CBC & Chem 7: 04/03/17 07:24 04/05/17 05:33 Labs: Abnormal Lab Results - Last 24 Hours (Table) 04/04/17 04/04/17 04/04/17 Range/Units 11:23 16:34 21:01 Carbon Dioxide (22-30) mmol/L BUN (9-20) mg/dL Glucose (74-99) mg/dL POC Glucose (mg/dL) 131 H 161 H 136 H (75-99) mg/dL Calcium (8.4-10.2) mg/dL 04/05/17 04/05/17 Range/Units 05:33 05:56 Carbon Dioxide 31 H (22-30) mmol/L BUN 28 H (9-20) mg/dL Glucose 143 H (74-99) mg/dL POC Glucose (mg/dL) 167 H (75-99) mg/dL Calcium 7.8 L (8.4-10.2) mg/dL Microbiology - Last 24 Hours (Table) 04/04/17 20:36 Gram Stain - Final Sputum Sputum Culture - Final 04/01/17 10:00 Blood Culture - Preliminary Blood No Growth after 72 hours Assessment and Plan Assessment: Impression: #1 Acute right mid lung pneumonia with recent sputum cultures positive for Pseudomonas aeruginosa and methicillin-resistant Staphylococcus aureus. Initiated on vancomycin and Levaquin. Influenza screen negative. Follow-up sputum sample pending. #2 Acute febrile illness secondary to above. #3 Acute on chronic hypoxic respiratory failure secondary to above. #4 Acute exacerbation of chronic obstructive pulmonary disease secondary to above. Treated with Advair, Spiriva and albuterol in the outpatient setting. #5 History of prostate cancer treated with radiation therapy. Currently on Flomax. #7 History of anxiety/depression. Currently on BuSpar and Celexa. #8 Hyperlipidemia. Currently on simvastatin. #9 40 year 2 pack per day smoking history however quit back in 1991. Plan: The patient was seen and evaluated by Dr. Warren. He is improved today as compared to yesterday. Still not back to his baseline. Currently on 8 L high flow nasal cannula to maintain O2 saturations in the 90s. No plans for bronchoscopy at this time. The patient is quite borderline and may end up on life support which he is not agreeable to. We'll continue with Zosyn, vancomycin and Levaquin for now. Another sputum culture is pending. We'll continue his treatment including IV Solu-Medrol, Pulmicort and Perforomist, DuoNeb inhalations. He is on heparin for DVT prophylaxis. Increase his activity as tolerated. We'll repeat a chest x-ray in the a.m. We'll continue to follow and make further recommendations based on his clinical status. I, the cosigning physician, performed a history & physical examination of the patient. Lungs sounds with few scattered rhonchi more so on the right mid lung. Maintaining O2 saturations in the 90s on 8 L high flow nasal cannula. I discussed the assessment and plan of care with my nurse practitioner, Ce Tan. I attest to the above note as dictated by her.
[2017-04-05] MEDS ORDERED: VANCOMYCIN TROUGH DUE 1 EACH MISC MISCELLANE ONE (11:00)
[2017-04-05 11:55] LABS: Glucose,Whole Blood 141 mg/dL (75-99)
[2017-04-05] MEDS: CALCIUM CARBONATE 500 MG CHEWABLE PO SCH (12:48)
[2017-04-05] MEDS: MULTIVITAMINS, THERA 1 EACH TAB PO SCH (12:48)
[2017-04-05] MEDS: ASCORBIC ACID 500 MG TAB PO SCH (12:48)
[2017-04-05] MEDS: SODIUM CHLORIDE 0.9% 1,000 ML IV SCH (12:49)
--- NOTE | 2017-04-05 14:10 | XR ---
EXAMINATION TYPE: XR chest 1V portable DATE OF EXAM: 04/04/2017 COMPARISON: NONE HISTORY: Shortness of breath TECHNIQUE: Frontal and lateral views of the chest are obtained. FINDINGS: Scattered senescent parenchymal changes noted. Hyperinflation compatible with COPD. Progressive interstitial and airspace infiltrate right midlung zone and right lower lobe and to a les ser extent left lower lobe felt to reflect pneumonia. Heart size is stable. Mediastinal structures are stable and grossly unremarkable. No evidence for hilar prominence. Degenerative changes dorsal spine. IMPRESSION: 1. Mildly Progressive interstitial and airspace infiltrate right midlung zone and right lower lobe an d to a lesser extent left lower lobe felt to reflect pneumonia.
[2017-04-05 16:39] LABS: Glucose,Whole Blood 184 mg/dL (75-99)
[2017-04-05] MEDS: LEVOFLOXACIN 500 MG TAB PO SCH (18:10)
[2017-04-05] MEDS: CITALOPRAM HYDROBROMIDE 20 MG TAB PO SCH (20:25)
[2017-04-05] MEDS: ASPIRIN 81 MG PO SCH (20:26)
[2017-04-05] MEDS: ATORVASTATIN 10 MG TAB PO SCH (20:26)
[2017-04-05] MEDS: MELATONIN 3 MG TABLET PO SCH (20:33)
[2017-04-05] MEDS: TAMSULOSIN 0.4 MG CAP.ER.24H PO SCH (20:37)
[2017-04-05 20:56] LABS: Glucose,Whole Blood 154 mg/dL (75-99)
--- NOTE | 2017-04-06 00:35 | P.PN ---
Subjective Progress Note Date: 04/04/17 Principal diagnosis: Pneumonia Patient is a 81-year-old male with a known history of COPD, hypertension and recent Pseudomonas sputum culture with pneumonia came to ER with complaints of worsening shortness of breath for the past 2 days. Patient has been having fever and tiredness and right-sided sharp chest pain to by 10 severity that increases with breathing. Patient did have pneumonia with positive sputum cultures with Pseudomonas and was treated with ciprofloxacin. Patient completed antibiotic course last Saturday and was told to view sputum sample again 2 days lateral. Sputum cultures done on 03/28/2017 showed MRSA and Pseudomonas. Patient does follow with Dr. Dennison as an outpatient. Patient was started on vancomycin and Zosyn at this time. Otherwise patient denied any nausea vomiting or abdominal pain. Patient did have remote history of smoking. Patient was saturating in the 80s and he came to the hospital. Patient was tachycardic, tachypneic and febrile with T-max 101.4 while in the hospital. 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 Extensive perihilar infiltrate in the right lung and left lung base. 04/02/2017 Patient's breathing status slightly improved otherwise still dyspneic with ambulation. Continued on antibiotics and steroids and breathing treatments. WBC count slightly improved. Pulmonary is following. Another sputum sample was sent. 04/03/2017 Sputum culture and blood culture showed no growth so far. Patient is still dyspneic with ambulation. Continued on current management. No acute overnight issues. 04/04/2017 Patient became short-winded and was in acute respiratory distress in the morning. Patient was placed on BiPAP. Continued on broad-spectrum antibiotics and IV steroids. Patient is requiring high flow oxygen otherwise no fever no chills. Pulmonary is following. Continues to be symptomatic with minimal exertion. Chest x-ray showed increased interstitial infiltrates. All other review of systems negative except the above. current medications reviewed Objective - Vital Signs Vital signs: Vital Signs Temp 97.6 F 04/04/17 12:00 Pulse 106 H 04/04/17 16:22 Resp 22 04/04/17 12:00 BP 123/67 04/04/17 12:00 Pulse Ox 94 L 04/04/17 16:10 Intake & Output 04/03/17 04/04/17 04/04/17 18:59 06:59 18:59 Intake Total 840 200 712 Output Total 900 200 300 Balance -60 0 412 Weight 82.5 kg Intake: Oral 840 200 712 Output: Urine 900 200 300 Other: # Voids 1 1 - Exam Patient is lying in the bed comfortably, no acute distress, awake alert and oriented.. HEENT: Normocephalic. Neck is supple. Pupils reactive. Nostrils clear. Oral cavity is moist. Ears reveal no drainage. Neck reveals no JVD, carotid bruits, or thyromegaly. CHEST EXAMINATION: Trachea is central. Symmetrical expansion. Diminished air entry bilateral . Minimal expiratory wheezing. Right basilar crackles CARDIAC: Normal S1, S2 with no gallops. No murmurs ABDOMEN: Soft. Bowel sounds normal. No organomegaly. No abdominal bruits. Extremities: reveal no edema. No clubbing or cyanosis Neurologically awake, alert, oriented x3 with well-coordinated movements. No focal deficits noted Skin: No rash or skin lesions. Psychiatric: Coperative. Nonsuicidal Musculoskeletal: No joint swelling or deformity. Normal range of motion. - Labs CBC & Chem 7: 04/03/17 07:24 04/05/17 05:33 Labs: Abnormal Lab Results - Last 24 Hours (Table) 04/03/17 04/04/17 04/04/17 Range/Units 20:43 05:30 05:44 BUN 21 H (9-20) mg/dL Glucose 137 H (74-99) mg/dL POC Glucose (mg/dL) 148 H 146 H (75-99) mg/dL Calcium 8.1 L (8.4-10.2) mg/dL 04/04/17 Range/Units 11:23 BUN (9-20) mg/dL Glucose (74-99) mg/dL POC Glucose (mg/dL) 131 H (75-99) mg/dL Calcium (8.4-10.2) mg/dL Microbiology - Last 24 Hours (Table) 04/01/17 10:00 Blood Culture - Preliminary Blood No Growth after 72 hours Assessment and Plan Assessment: Extensive right perihilar infiltrate with pneumonia. Sputum culture showed MRSA and Pseudomonas recently Sepsis secondary to pneumonia History of Pseudomonas pneumonia February 2017 COPD with exacerbation COPD severe with an FEV1 of 45% predicted at baseline prostate cancer treated by radiation therapy chronic anxiety/depression hyperlipidemia maintained on Zocor DVT prophylaxis Plan: Patient be continued on antibiotics in the form of vancomycin and Zosyn. Follow culture reports. Repeat sputum culture showed no growth. Pulmonary is following.. Continue with the steroids and breathing treatments and follow closely. Further conditions based on the clinical course. Prognosis is guarded. Time with Patient: Greater than 30
--- NOTE | 2017-04-06 00:37 | P.PN ---
Subjective Progress Note Date: 04/05/17 Principal diagnosis: Pneumonia Patient is a 81-year-old male with a known history of COPD, hypertension and recent Pseudomonas sputum culture with pneumonia came to ER with complaints of worsening shortness of breath for the past 2 days. Patient has been having fever and tiredness and right-sided sharp chest pain to by 10 severity that increases with breathing. Patient did have pneumonia with positive sputum cultures with Pseudomonas and was treated with ciprofloxacin. Patient completed antibiotic course last Saturday and was told to view sputum sample again 2 days lateral. Sputum cultures done on 03/28/2017 showed MRSA and Pseudomonas. Patient does follow with Dr. Dennison as an outpatient. Patient was started on vancomycin and Zosyn at this time. Otherwise patient denied any nausea vomiting or abdominal pain. Patient did have remote history of smoking. Patient was saturating in the 80s and he came to the hospital. Patient was tachycardic, tachypneic and febrile with T-max 101.4 while in the hospital. 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 Extensive perihilar infiltrate in the right lung and left lung base. 04/02/2017 Patient's breathing status slightly improved otherwise still dyspneic with ambulation. Continued on antibiotics and steroids and breathing treatments. WBC count slightly improved. Pulmonary is following. Another sputum sample was sent. 04/03/2017 Sputum culture and blood culture showed no growth so far. Patient is still dyspneic with ambulation. Continued on current management. No acute overnight issues. 04/04/2017 Patient became short-winded and was in acute respiratory distress in the morning. Patient was placed on BiPAP. Continued on broad-spectrum antibiotics and IV steroids. Patient is requiring high flow oxygen otherwise no fever no chills. Pulmonary is following. Continues to be symptomatic with minimal exertion. Chest x-ray showed increased interstitial infiltrates. 04/05/2017 Patient's breathing is better today. Still requiring high flow nausea cannula at 8 L. Continues to be on broad-spectrum antibiotics. Slight improvement from yesterday otherwise still symptomatic. No fever no chills. All other review of systems negative except the above. current medications reviewed Objective - Vital Signs Vital signs: Vital Signs Temp 97 F L 04/05/17 16:00 Pulse 116 H 04/05/17 21:30 Resp 20 04/05/17 16:00 BP 136/80 04/05/17 16:00 Pulse Ox 91 L 04/05/17 16:00 Intake & Output 04/05/17 04/05/17 04/06/17 06:59 18:59 06:59 Intake Total 250 979 Output Total 500 Balance 250 479 Weight 83.1 kg Intake: Intake, IV Titration 250 Amount Vancomycin 1,500 mg In 250 Sodium Chloride 0.9% 250 ml @ 125 mls/hr IVPB Q8H [facility] Rx#:[id number] Oral 979 Output: Urine 500 Other: # Voids 500 - Exam Patient is lying in the bed comfortably, no acute distress, awake alert and oriented.. HEENT: Normocephalic. Neck is supple. Pupils reactive. Nostrils clear. Oral cavity is moist. Ears reveal no drainage. Neck reveals no JVD, carotid bruits, or thyromegaly. CHEST EXAMINATION: Trachea is central. Symmetrical expansion. Diminished air entry bilateral . Minimal expiratory wheezing. Right basilar crackles CARDIAC: Normal S1, S2 with no gallops. No murmurs ABDOMEN: Soft. Bowel sounds normal. No organomegaly. No abdominal bruits. Extremities: reveal no edema. No clubbing or cyanosis Neurologically awake, alert, oriented x3 with well-coordinated movements. No focal deficits noted Skin: No rash or skin lesions. Psychiatric: Coperative. Nonsuicidal Musculoskeletal: No joint swelling or deformity. Normal range of motion. - Labs CBC & Chem 7: 04/03/17 07:24 04/05/17 05:33 Labs: Abnormal Lab Results - Last 24 Hours (Table) 04/05/17 04/05/17 04/05/17 Range/Units 05:33 05:56 11:53 Carbon Dioxide 31 H (22-30) mmol/L BUN 28 H (9-20) mg/dL Glucose 143 H (74-99) mg/dL POC Glucose (mg/dL) 167 H 141 H (75-99) mg/dL Calcium 7.8 L (8.4-10.2) mg/dL 04/05/17 04/05/17 Range/Units 16:34 20:54 Carbon Dioxide (22-30) mmol/L BUN (9-20) mg/dL Glucose (74-99) mg/dL POC Glucose (mg/dL) 184 H 154 H (75-99) mg/dL Calcium (8.4-10.2) mg/dL Microbiology - Last 24 Hours (Table) 04/01/17 10:00 Blood Culture - Preliminary Blood No Growth after 96 hours 04/04/17 20:36 Gram Stain - Final Sputum Sputum Culture - Final Assessment and Plan Assessment: Extensive right perihilar infiltrate with pneumonia. Sputum culture showed MRSA and Pseudomonas recently Sepsis secondary to pneumonia History of Pseudomonas pneumonia February 2017 COPD with exacerbation COPD severe with an FEV1 of 45% predicted at baseline prostate cancer treated by radiation therapy chronic anxiety/depression hyperlipidemia maintained on Zocor DVT prophylaxis Plan: Patient be continued on antibiotics in the form of vancomycin and Zosyn. Follow culture reports. Repeat sputum culture showed no growth. Pulmonary is following.. Continue with the steroids and breathing treatments and follow closely. Further conditions based on the clinical course. Prognosis is guarded. Time with Patient: Greater than 30
[2017-04-06] MEDS: VANCOMYCIN 1,500 MG in SODIUM CHLORIDE 0.9% 250 ML IVPB SCH ×3 (04:47→21:08)
[2017-04-06 06:07] LABS: Glucose,Whole Blood 160 mg/dL (75-99)
[2017-04-06] MEDS: methylPREDNISolone SOD SUCCI 125 MG/2 ML VIAL IV SCH ×4 (06:33→23:27)
[2017-04-06] MEDS: INSULIN ASPART 100 UNIT/ML 1 ML 10 ML VIAL SQ SCH ×4 (06:34→21:13)
[2017-04-06 06:37] LABS: Anion Gap 6 mmol/L; Blood Urea Nitrogen 29 mg/dL (9-20); Calcium 8.2 mg/dL (8.4-10.2); Carbon Dioxide 30 mmol/L (22-30); Chloride 106 mmol/L (98-107); Glucose 143 mg/dL (74-99); Sodium 142 mmol/L (137-145)
--- NOTE | 2017-04-06 07:23 | XR ---
EXAMINATION TYPE: XR chest 1V portable DATE OF EXAM: 04/06/2017 HISTORY: Follow up pneumonia. REFERENCE: Previous study dated 04/04/2017.. FINDINGS: There is worsening airspace disease on the right. There is underlying COPD heart size upper limits of normal. I cannot exclude a small right effusion. IMPRESSION: 1. COPD. 2. WORSENING AIRSPACE DISEASE, RIGHT LUNG.
[2017-04-06] MEDS: IPRATROPIUM-ALBUTEROL 3 ML NEB INHALATION SCH ×4 (08:21→20:36)
[2017-04-06] MEDS: FORMOTEROL FUMARATE 20 MCG/2 ML NEBU INHALATION SCH ×2 (08:21→20:36)
[2017-04-06] MEDS: BUDESONIDE 1 MG/2 ML NEBU INHALATION SCH ×2 (08:21→20:35)
[2017-04-06] MEDS: HEPARIN SODIUM,PORCINE 5,000 UNIT/ML 1 ML VIAL SQ SCH ×2 (08:45→21:05)
[2017-04-06] MEDS: guaiFENesin-DM 600/30MG 1 EACH TAB.ER.12H PO SCH (08:45)
[2017-04-06] MEDS: busPIRone HCl 5 MG TAB PO SCH ×2 (08:45→21:17)
[2017-04-06] MEDS: PIPERACILLIN-TAZOBACTAM 3.375 GM in DEXTROSE/WATER 1 50ML.BAG IVPB SCH ×3 (09:01→23:38)
[2017-04-06] MEDS ORDERED: FUROSEMIDE 10 MG/ML 4 ML VIAL IV STA (10:52)
[2017-04-06] MEDS: ASCORBIC ACID 500 MG TAB PO SCH (11:27)
[2017-04-06] MEDS: MULTIVITAMINS, THERA 1 EACH TAB PO SCH (11:27)
[2017-04-06] MEDS: CALCIUM CARBONATE 500 MG CHEWABLE PO SCH (11:27)
[2017-04-06 11:52] LABS: Glucose,Whole Blood 140 mg/dL (75-99)
--- NOTE | 2017-04-06 12:03 | P.PN ---
Subjective Progress Note Date: 04/06/17 Principal diagnosis: Acute right mid lung pneumonia. This is a very pleasant 81-year-old gentleman who follows with Dr. Carolina as his primary care physician. He has a history of prostate cancer treated with radiation therapy, hyperlipidemia, anxiety/depression. He also has a history of chronic obstructive pulmonary disease with a 40 year 2 pack per day smoking history. He did quit back in 1991. He is treated with Advair, Spiriva and albuterol in the outpatient setting. He was here one month ago for COPD exacerbation. His FEV1 value is 45% of predicted. Oxygen dependent. His influenza screen at that time was negative. He was found however to have pseudomonas aeruginosa positive sputum. A follow-up sputum on 03/28/2017 is positive for Pseudomonas along with methicillin resistant staph aureus. He presented here again yesterday to the emergency room with complaints of increasing shortness of breath, cough and congestion. He also had complaints of sharp right-sided chest discomfort. His chest x-ray shows areas of chronic emphysema changes with scattered fibrosis. There is a persistent right midlung lateral infiltrate which was new compared to previous. White count 18.7. He's had a T-max of 101.4. Currently on 5 L/m per nasal cannula. He has been initiated on vancomycin and Levaquin. The patient is seen again today 04/03/2017 in follow-up on the selective care unit. He is currently awake and alert in no acute distress. He is still having dyspnea with minimal conversation and minimal activity. He has been afebrile. Maintaining O2 saturations in the low 90s on 5 L high flow nasal cannula. Slightly tachycardic. Slightly tachypneic. Hemodynamically stable. Blood culture reveals no growth to date. Sputum culture reveals no growth. May need a better specimen. White count 17.4. Hemoglobin 11.1. Creatinine 0.69. He remains on vancomycin and Levaquin. The patient is seen again today 04/04/2017 in follow-up on the selective care unit. He is currently resting in bed. He is awake and alert in no acute distress. He continues with a loose productive cough. He has been slow to progress. He is continued on vancomycin and Levaquin. Follow-up sputum was insufficient. Attempt to obtain a repeat sputum. He is utilizing 55% Ventimask to maintain O2 saturations in the 90s. He has been afebrile. Slightly tachycardia. Blood pressure stable. Follow-up chest x-ray pending. The patient is seen again today 04/05/2017 in follow-up on the selective care unit. He is awake and alert in no acute distress. He is breathing a bit better today as compared to yesterday. We were able to titrate down the FiO2 to 8 L high flow nasal cannula. Yesterday's chest x-ray did show some worsening right lung pneumonia as well as some left lower lung infiltrate. He rested well last night. He was initiated on Zosyn yesterday in addition to the vancomycin and Levaquin. Creatinine 0.70. He remains afebrile. Hemodynamically stable. The patient is seen again today 04/06/2017 in follow-up on the selective care unit. He is currently resting comfortably in bed. He is awake and alert in no acute distress. He was able to titrate down his FiO2 to 6 L last evening however he developed shortness of breath while being up to the bathroom and is currently still on 8 L high flow nasal cannula. He has remained afebrile. Unfortunately he has chest x-ray today continues to reveal worsening airspace disease more so on the right lung. He has also been gradually having increased edema of the upper extremities trace edema lower extremities. He was given Lasix IVP 1 this morning. Creatinine 0.64. Objective - Vital Signs Vital signs: Vital Signs Temp 96.0 F L 04/06/17 08:00 Pulse 104 H 04/06/17 11:54 Resp 22 04/06/17 08:00 BP 165/77 04/06/17 08:00 Pulse Ox 91 L 04/06/17 08:00 Intake & Output 04/05/17 04/06/17 04/06/17 18:59 06:59 18:59 Intake Total 979 1280 920 Output Total 500 400 350 Balance 479 880 570 Weight 86 kg Intake: IV 1080 80 Piperacillin-Tazobactam 3 100 .375 gm In Dextrose/Water 1 50ml.bag @ 12.5 mls/hr IVPB Q8HR [facility] Rx#: [id number] Sodium Chloride 0.9% 1, 480 80 000 ml @ 40 mls/hr IV . Q24H [facility] Rx#:[id number] Vancomycin 1,500 mg In 500 Sodium Chloride 0.9% 250 ml @ 125 mls/hr IVPB Q8H [facility] Rx#:[id number] Intake, IV Titration 300 Amount Piperacillin-Tazobactam 3 50 .375 gm In Dextrose/Water 1 50ml.bag @ 12.5 mls/hr IVPB Q8HR [facility] Rx#: [id number] Vancomycin 1,500 mg In 250 Sodium Chloride 0.9% 250 ml @ 125 mls/hr IVPB Q8H [facility] Rx#:[id number] Oral 979 200 540 Output: Urine 500 400 350 Other: Voiding Method Toilet # Voids 1 1 - Exam GENERAL EXAM: Alert, comfortable. Slow to progress. HEAD: Normocephalic. EYES: Normal reaction of pupils, equal size. NOSE: Clear with pink turbinates. THROAT: No erythema or exudates. NECK: No masses, no JVD. CHEST: No chest wall deformity. LUNGS: Equal air entry with scattered rhonchi more so on the right, crackles in the posterior bases. CVS: S1 and S2 normal with no audible murmur, regular rhythm. ABDOMEN: No hepatosplenomegaly, normal bowel sounds, no guarding or rigidity. SPINE: No scoliosis or deformity SKIN: No rashes. Areas of ecchymosis. CENTRAL NERVOUS SYSTEM: No focal deficits, tone is normal in all 4 extremities. EXTREMITIES: There trace peripheral edema. No clubbing, no cyanosis. Peripheral pulses are intact. - Labs CBC & Chem 7: 04/03/17 07:24 04/06/17 06:04 Labs: Abnormal Lab Results - Last 24 Hours (Table) 04/05/17 04/05/17 04/05/17 Range/Units 11:53 16:34 20:54 BUN (9-20) mg/dL Creatinine (0.66-1.25) mg/dL Glucose (74-99) mg/dL POC Glucose (mg/dL) 141 H 184 H 154 H (75-99) mg/dL Calcium (8.4-10.2) mg/dL 04/06/17 04/06/17 04/06/17 Range/Units 06:04 06:04 11:49 BUN 29 H (9-20) mg/dL Creatinine 0.64 L (0.66-1.25) mg/dL Glucose 143 H (74-99) mg/dL POC Glucose (mg/dL) 160 H 140 H (75-99) mg/dL Calcium 8.2 L (8.4-10.2) mg/dL Microbiology - Last 24 Hours (Table) 04/01/17 10:00 Blood Culture - Preliminary Blood No Growth after 96 hours 04/04/17 20:36 Gram Stain - Final Sputum Sputum Culture - Final Assessment and Plan Assessment: Impression: #1 Acute right mid lung pneumonia with recent sputum cultures positive for Pseudomonas aeruginosa and methicillin-resistant Staphylococcus aureus. Initiated on vancomycin and Levaquin. Zosyn has also been added. Influenza screen negative. Follow-up sputum sample pending. #2 Acute febrile illness secondary to above. #3 Acute on chronic hypoxic respiratory failure secondary to above. #4 Acute exacerbation of chronic obstructive pulmonary disease secondary to above. Treated with Advair, Spiriva and albuterol in the outpatient setting. #5 History of prostate cancer treated with radiation therapy. Currently on Flomax. #7 History of anxiety/depression. Currently on BuSpar and Celexa. #8 Hyperlipidemia. Currently on simvastatin. #9 40 year 2 pack per day smoking history however quit back in 1991. Plan: The patient was seen and evaluated by Dr. Warren. His chest x-ray and labs were reviewed. Unfortunately there is worsening airspace disease in the right lung as well as the left lung base. Currently on 8 L high flow nasal cannula to maintain O2 saturations in the 90s. The patient is quite borderline and may end up on life support if bronchoscopy and BAL was performed which he is not agreeable to. We'll continue with Zosyn, vancomycin and Levaquin for now. We'll continue his treatment including IV Solu-Medrol, Pulmicort and Perforomist, DuoNeb inhalations. He is on heparin for DVT prophylaxis. He did receive 1 dose of IV Lasix 40 mg. Increase his activity as tolerated. We'll continue to follow and make further recommendations based on his clinical status. I, the cosigning physician, performed a history & physical examination of the patient. Lungs sounds with scattered rhonchi more so on the right mid lung. Crackles in the posterior bases. Maintaining O2 saturations in the 90s on 8 L high flow nasal cannula. I discussed the assessment and plan of care with my nurse practitioner, Ce Tan. I attest to the above note as dictated by her.
[2017-04-06] MEDS: SODIUM CHLORIDE 0.9% 1,000 ML IV SCH (15:58)
[2017-04-06 16:58] LABS: Glucose,Whole Blood 157 mg/dL (75-99)
[2017-04-06] MEDS: LEVOFLOXACIN 500 MG TAB PO SCH (19:23)
[2017-04-06 20:51] LABS: Glucose,Whole Blood 156 mg/dL (75-99)
[2017-04-06] MEDS: ATORVASTATIN 10 MG TAB PO SCH (21:04)
[2017-04-06] MEDS: ASPIRIN 81 MG PO SCH (21:04)
[2017-04-06] MEDS: MELATONIN 3 MG TABLET PO SCH (21:05)
[2017-04-06] MEDS: TAMSULOSIN 0.4 MG CAP.ER.24H PO SCH (21:05)
[2017-04-06] MEDS: CITALOPRAM HYDROBROMIDE 20 MG TAB PO SCH (21:05)
[2017-04-07] MEDS: VANCOMYCIN 1,500 MG in SODIUM CHLORIDE 0.9% 250 ML IVPB SCH ×4 (04:54→21:51)
[2017-04-07 06:30] LABS: Glucose,Whole Blood 147 mg/dL (75-99)
[2017-04-07] MEDS: methylPREDNISolone SOD SUCCI 125 MG/2 ML VIAL IV SCH ×3 (06:35→18:24)
[2017-04-07] MEDS: INSULIN ASPART 100 UNIT/ML 1 ML 10 ML VIAL SQ SCH ×4 (06:36→21:37)
[2017-04-07 06:50] LABS: Basophils % (A) 0 %; Eosinophils % (A) 0 %; HCT 32.4 % (39.0-53.0); Hypochromasia Slight; Lymphocytes # (A) 0.3 k/uL (1.0-4.8); Lymphocytes % (A) 3 %; MCH 26.3 pg (25.0-35.0); MCHC 29.7 g/dL (31.0-37.0); MCV 88.7 fL (80.0-100.0); Mean Platelet Volume 7.5; Monocytes # (A) 0.3 k/uL (0-1.0); Monocytes % (A) 3 %; Neutrophils # (A) 9.9 k/uL (1.3-7.7); Neutrophils % (A) 93 %; Platelet Count 247 k/uL (150-450); RBC 3.66 m/uL (4.30-5.90); RDW 15.8 % (11.5-15.5); WBC 10.6 k/uL (3.8-10.6)
[2017-04-07 07:00] LABS: Anion Gap 5 mmol/L; Blood Urea Nitrogen 34 mg/dL (9-20); Carbon Dioxide 36 mmol/L (22-30); Chloride 101 mmol/L (98-107); Glucose 143 mg/dL (74-99); HGB 9.6 gm/dL (13.0-17.5); Potassium 3.7 mmol/L (3.5-5.1); Sodium 142 mmol/L (137-145)
[2017-04-07] MEDS: IPRATROPIUM-ALBUTEROL 3 ML NEB INHALATION SCH ×4 (08:02→19:26)
[2017-04-07] MEDS: FORMOTEROL FUMARATE 20 MCG/2 ML NEBU INHALATION SCH ×2 (08:02→19:26)
[2017-04-07] MEDS: BUDESONIDE 1 MG/2 ML NEBU INHALATION SCH ×2 (08:02→19:26)
[2017-04-07] MEDS: guaiFENesin-DM 600/30MG 1 EACH TAB.ER.12H PO SCH (08:21)
[2017-04-07] MEDS: busPIRone HCl 5 MG TAB PO SCH ×2 (08:21→21:37)
[2017-04-07] MEDS: PIPERACILLIN-TAZOBACTAM 3.375 GM in DEXTROSE/WATER 1 50ML.BAG IVPB SCH ×2 (08:21→17:45)
[2017-04-07] MEDS: HEPARIN SODIUM,PORCINE 5,000 UNIT/ML 1 ML VIAL SQ SCH ×2 (08:21→21:37)
[2017-04-07] MEDS ORDERED: FUROSEMIDE 10 MG/ML 4 ML VIAL IV SCH (09:00)
--- NOTE | 2017-04-07 11:05 | XR ---
EXAMINATION TYPE: XR chest 1V portable DATE OF EXAM: 04/07/2017 HISTORY: pneumonia/chf. REFERENCE: Previous study dated 04/06/2017. FINDINGS: There is improved aeration of both lungs. There continues to be patchy, bilateral airspace disease. The heart is not enlarged. I suspect a small right effusion.. IMPRESSION: IMPROVED AERATION, BOTH LUNGS.
[2017-04-07] MEDS: CALCIUM CARBONATE 500 MG CHEWABLE PO SCH (11:24)
[2017-04-07] MEDS: ASCORBIC ACID 500 MG TAB PO SCH (11:24)
[2017-04-07] MEDS: MULTIVITAMINS, THERA 1 EACH TAB PO SCH (11:24)
[2017-04-07 12:08] LABS: Glucose,Whole Blood 155 mg/dL (75-99)
[2017-04-07] MEDS: SODIUM CHLORIDE 0.9% 1,000 ML IV SCH (12:55)
--- NOTE | 2017-04-07 13:42 | P.PN ---
Subjective Progress Note Date: 04/07/17 Principal diagnosis: Acute right sided pneumonia This is a very pleasant 81-year-old gentleman who follows with Dr. Carolina as his primary care physician. He has a history of prostate cancer treated with radiation therapy, hyperlipidemia, anxiety/depression. He also has a history of chronic obstructive pulmonary disease with a 40 year 2 pack per day smoking history. He did quit back in 1991. He is treated with Advair, Spiriva and albuterol in the outpatient setting. He was here one month ago for COPD exacerbation. His FEV1 value is 45% of predicted. Oxygen dependent. His influenza screen at that time was negative. He was found however to have pseudomonas aeruginosa positive sputum. A follow-up sputum on 03/28/2017 is positive for Pseudomonas along with methicillin resistant staph aureus. He presented here again yesterday to the emergency room with complaints of increasing shortness of breath, cough and congestion. He also had complaints of sharp right-sided chest discomfort. His chest x-ray shows areas of chronic emphysema changes with scattered fibrosis. There is a persistent right midlung lateral infiltrate which was new compared to previous. White count 18.7. He's had a T-max of 101.4. Currently on 5 L/m per nasal cannula. He has been initiated on vancomycin and Levaquin. The patient is seen again today 04/03/2017 in follow-up on the selective care unit. He is currently awake and alert in no acute distress. He is still having dyspnea with minimal conversation and minimal activity. He has been afebrile. Maintaining O2 saturations in the low 90s on 5 L high flow nasal cannula. Slightly tachycardic. Slightly tachypneic. Hemodynamically stable. Blood culture reveals no growth to date. Sputum culture reveals no growth. May need a better specimen. White count 17.4. Hemoglobin 11.1. Creatinine 0.69. He remains on vancomycin and Levaquin. The patient is seen again today 04/04/2017 in follow-up on the selective care unit. He is currently resting in bed. He is awake and alert in no acute distress. He continues with a loose productive cough. He has been slow to progress. He is continued on vancomycin and Levaquin. Follow-up sputum was insufficient. Attempt to obtain a repeat sputum. He is utilizing 55% Ventimask to maintain O2 saturations in the 90s. He has been afebrile. Slightly tachycardia. Blood pressure stable. Follow-up chest x-ray pending. The patient is seen again today 04/05/2017 in follow-up on the selective care unit. He is awake and alert in no acute distress. He is breathing a bit better today as compared to yesterday. We were able to titrate down the FiO2 to 8 L high flow nasal cannula. Yesterday's chest x-ray did show some worsening right lung pneumonia as well as some left lower lung infiltrate. He rested well last night. He was initiated on Zosyn yesterday in addition to the vancomycin and Levaquin. Creatinine 0.70. He remains afebrile. Hemodynamically stable. The patient is seen again today 04/06/2017 in follow-up on the selective care unit. He is currently resting comfortably in bed. He is awake and alert in no acute distress. He was able to titrate down his FiO2 to 6 L last evening however he developed shortness of breath while being up to the bathroom and is currently still on 8 L high flow nasal cannula. He has remained afebrile. Unfortunately he has chest x-ray today continues to reveal worsening airspace disease more so on the right lung. He has also been gradually having increased edema of the upper extremities trace edema lower extremities. He was given Lasix IVP 1 this morning. Creatinine 0.64. Reevaluated today on 04/07/2017, patient has been diuresing significantly, surprisingly clinically the patient is feeling better, chest x-ray showed slight improvement compared the chest x-ray yesterday. Which implies some component of pulmonary edema in addition to his right sided pneumonia. Labs showed relatively normal CBC except hemoglobin 9.6. Basic metabolic profile is normal BUN is 34 creatinine is 0.68, slightly prerenal azotemia noted. I will cut down the furosemide to 20 mg IV push daily instead of 40 mg IV push daily. Objective - Vital Signs Vital signs: Vital Signs Temp 98.1 F 04/07/17 08:00 Pulse 106 H 04/07/17 11:48 Resp 22 04/07/17 08:00 BP 161/73 04/07/17 08:00 Pulse Ox 91 L 04/07/17 08:00 Intake & Output 02/17/18 02/18/18 02/18/18 18:59 06:59 18:59 Intake Total 1338 740 Output Total 950 700 Balance 388 40 Weight 83.5 kg Intake: IV 80 740 Piperacillin-Tazobactam 3 100 .375 gm In Dextrose/Water 1 50ml.bag @ 12.5 mls/hr IVPB Q8HR [facility] Rx#: [id number] Sodium Chloride 0.9% 1, 80 140 000 ml @ 40 mls/hr IV . Q24H [facility] Rx#:[id number] Vancomycin 1,500 mg In 500 Sodium Chloride 0.9% 250 ml @ 125 mls/hr IVPB Q8H [facility] Rx#:[id number] Intake, IV Titration 300 Amount Piperacillin-Tazobactam 3 50 .375 gm In Dextrose/Water 1 50ml.bag @ 12.5 mls/hr IVPB Q8HR [facility] Rx#: [id number] Vancomycin 1,500 mg In 250 Sodium Chloride 0.9% 250 ml @ 125 mls/hr IVPB Q8H [facility] Rx#:[id number] Oral 958 Output: Urine 950 700 Other: Voiding Method Urinal # Voids 1 - Exam GENERAL EXAM: Alert, comfortable. Slow to progress. HEAD: Normocephalic. EYES: Normal reaction of pupils, equal size. NOSE: Clear with pink turbinates. THROAT: No erythema or exudates. NECK: No masses, no JVD. CHEST: No chest wall deformity. LUNGS: Equal air entry with scattered rhonchi more so on the right, crackles in the posterior right base only CVS: S1 and S2 normal with no audible murmur, regular rhythm. ABDOMEN: No hepatosplenomegaly, normal bowel sounds, no guarding or rigidity. SPINE: No scoliosis or deformity SKIN: No rashes. Areas of ecchymosis. CENTRAL NERVOUS SYSTEM: No focal deficits, tone is normal in all 4 extremities. EXTREMITIES: There trace peripheral edema. No clubbing, no cyanosis. Peripheral pulses are intact. - Labs CBC & Chem 7: 04/07/17 06:27 04/07/17 06:27 Labs: Abnormal Lab Results - Last 24 Hours (Table) 04/06/17 04/06/17 04/07/17 Range/Units 16:52 20:49 06:27 RBC (4.30-5.90) m/uL Hgb (13.0-17.5) gm/dL Hct (39.0-53.0) % MCHC (31.0-37.0) g/dL RDW (11.5-15.5) % Neutrophils # (1.3-7.7) k/uL Lymphocytes # (1.0-4.8) k/uL Carbon Dioxide 36 H (22-30) mmol/L BUN 34 H (9-20) mg/dL Glucose 143 H (74-99) mg/dL POC Glucose (mg/dL) 157 H 156 H (75-99) mg/dL Calcium 8.0 L (8.4-10.2) mg/dL 04/07/17 04/07/17 04/07/17 Range/Units 06:27 06:29 12:06 RBC 3.66 L (4.30-5.90) m/uL Hgb 9.6 L D (13.0-17.5) gm/dL Hct 32.4 L (39.0-53.0) % MCHC 29.7 L (31.0-37.0) g/dL RDW 15.8 H (11.5-15.5) % Neutrophils # 9.9 H (1.3-7.7) k/uL Lymphocytes # 0.3 L (1.0-4.8) k/uL Carbon Dioxide (22-30) mmol/L BUN (9-20) mg/dL Glucose (74-99) mg/dL POC Glucose (mg/dL) 147 H 155 H (75-99) mg/dL Calcium (8.4-10.2) mg/dL Microbiology - Last 24 Hours (Table) 04/01/17 10:00 Blood Culture - Final Blood No Growth after 144 hours Assessment and Plan Assessment: #1 Acute right mid lung pneumonia with recent sputum cultures positive for Pseudomonas aeruginosa and methicillin-resistant Staphylococcus aureus. Initiated on vancomycin and Levaquin. Zosyn has also been added. Influenza screen negative. Follow-up sputum sample pending. #2 Acute febrile illness secondary to above. #3 Acute on chronic hypoxic respiratory failure secondary to above. #4 Acute exacerbation of chronic obstructive pulmonary disease secondary to above. Treated with Advair, Spiriva and albuterol in the outpatient setting. #5 History of prostate cancer treated with radiation therapy. Currently on Flomax. #7 History of anxiety/depression. Currently on BuSpar and Celexa. #8 Hyperlipidemia. Currently on simvastatin. #9 40 year 2 pack per day smoking history however quit back in 1991. Recommendation: Continue present course of antibiotics, bronchodilators, cut down the dose of diuretics, patient will be reevaluated again in a.m., if no significant improvement may even consider bronchoscopy sometime next week. Time with Patient: Less than 30
[2017-04-07 17:08] LABS: Glucose,Whole Blood 149 mg/dL (75-99)
[2017-04-07] MEDS: LEVOFLOXACIN 500 MG TAB PO SCH (18:24)
[2017-04-07] MEDS: ASPIRIN 81 MG PO SCH (20:41)
[2017-04-07 21:18] LABS: Glucose,Whole Blood 171 mg/dL (75-99)
[2017-04-07] MEDS: ATORVASTATIN 10 MG TAB PO SCH (21:36)
[2017-04-07] MEDS: CITALOPRAM HYDROBROMIDE 20 MG TAB PO SCH (21:37)
[2017-04-07] MEDS: MELATONIN 3 MG TABLET PO SCH (21:38)
[2017-04-07] MEDS: TAMSULOSIN 0.4 MG CAP.ER.24H PO SCH (21:38)
--- NOTE | 2017-04-07 22:19 | P.PN ---
Subjective Progress Note Date: 04/06/17 Principal diagnosis: Pneumonia Patient is a 81-year-old male with a known history of COPD, hypertension and recent Pseudomonas sputum culture with pneumonia came to ER with complaints of worsening shortness of breath for the past 2 days. Patient has been having fever and tiredness and right-sided sharp chest pain to by 10 severity that increases with breathing. Patient did have pneumonia with positive sputum cultures with Pseudomonas and was treated with ciprofloxacin. Patient completed antibiotic course last Saturday and was told to view sputum sample again 2 days lateral. Sputum cultures done on 03/28/2017 showed MRSA and Pseudomonas. Patient does follow with Dr. Dennison as an outpatient. Patient was started on vancomycin and Zosyn at this time. Otherwise patient denied any nausea vomiting or abdominal pain. Patient did have remote history of smoking. Patient was saturating in the 80s and he came to the hospital. Patient was tachycardic, tachypneic and febrile with T-max 101.4 while in the hospital. 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 Extensive perihilar infiltrate in the right lung and left lung base. 04/02/2017 Patient's breathing status slightly improved otherwise still dyspneic with ambulation. Continued on antibiotics and steroids and breathing treatments. WBC count slightly improved. Pulmonary is following. Another sputum sample was sent. 04/03/2017 Sputum culture and blood culture showed no growth so far. Patient is still dyspneic with ambulation. Continued on current management. No acute overnight issues. 04/04/2017 Patient became short-winded and was in acute respiratory distress in the morning. Patient was placed on BiPAP. Continued on broad-spectrum antibiotics and IV steroids. Patient is requiring high flow oxygen otherwise no fever no chills. Pulmonary is following. Continues to be symptomatic with minimal exertion. Chest x-ray showed increased interstitial infiltrates. 04/05/2017 Patient's breathing is better today. Still requiring high flow nausea cannula at 8 L. Continues to be on broad-spectrum antibiotics. Slight improvement from yesterday otherwise still symptomatic. No fever no chills. 04/06/2017 Patient is still having shortness of breath. Requiring high flow nasal cannula. Patient was also found to have worsening leg swelling. Chest x-ray showed worsening airspace disease. Patient most likely having lung congestion. Patient was started on IV Lasix. Patient did have some improved symptoms later today. No fever no chills. No nausea vomiting or abdominal pain. No chest pain. All other review of systems negative except the above. current medications reviewed Objective - Vital Signs Vital signs: Vital Signs Temp 97.4 F L 04/06/17 16:00 Pulse 116 H 04/06/17 21:04 Resp 18 04/06/17 16:00 BP 156/81 04/06/17 16:00 Pulse Ox 91 L 04/06/17 20:42 Intake & Output 04/06/17 04/06/17 04/07/17 06:59 18:59 06:59 Intake Total 1280 1338 Output Total 400 950 Balance 880 388 Weight 86 kg Intake: IV 1080 80 Piperacillin-Tazobactam 3 100 .375 gm In Dextrose/Water 1 50ml.bag @ 12.5 mls/hr IVPB Q8HR [facility] Rx#: [id number] Sodium Chloride 0.9% 1, 480 80 000 ml @ 40 mls/hr IV . Q24H [facility] Rx#:[id number] Vancomycin 1,500 mg In 500 Sodium Chloride 0.9% 250 ml @ 125 mls/hr IVPB Q8H [facility] Rx#:[id number] Intake, IV Titration 300 Amount Piperacillin-Tazobactam 3 50 .375 gm In Dextrose/Water 1 50ml.bag @ 12.5 mls/hr IVPB Q8HR [facility] Rx#: [id number] Vancomycin 1,500 mg In 250 Sodium Chloride 0.9% 250 ml @ 125 mls/hr IVPB Q8H [facility] Rx#:[id number] Oral 200 958 Output: Urine 400 950 Other: Voiding Method Toilet # Voids 1 1 - Exam Patient is lying in the bed comfortably, no acute distress, awake alert and oriented.. HEENT: Normocephalic. Neck is supple. Pupils reactive. Nostrils clear. Oral cavity is moist. Ears reveal no drainage. Neck reveals no JVD, carotid bruits, or thyromegaly. CHEST EXAMINATION: Trachea is central. Symmetrical expansion. Improved air entry bilaterally. Right basilar crackles CARDIAC: Normal S1, S2 with no gallops. No murmurs ABDOMEN: Soft. Bowel sounds normal. No organomegaly. No abdominal bruits. Extremities: reveal no edema. No clubbing or cyanosis Neurologically awake, alert, oriented x3 with well-coordinated movements. No focal deficits noted Skin: No rash or skin lesions. Psychiatric: Coperative. Nonsuicidal Musculoskeletal: No joint swelling or deformity. Normal range of motion. - Labs CBC & Chem 7: 04/07/17 06:27 04/07/17 06:27 Labs: Abnormal Lab Results - Last 24 Hours (Table) 04/06/17 04/06/17 04/06/17 Range/Units 06:04 06:04 11:49 BUN 29 H (9-20) mg/dL Creatinine 0.64 L (0.66-1.25) mg/dL Glucose 143 H (74-99) mg/dL POC Glucose (mg/dL) 160 H 140 H (75-99) mg/dL Calcium 8.2 L (8.4-10.2) mg/dL 04/06/17 04/06/17 Range/Units 16:52 20:49 BUN (9-20) mg/dL Creatinine (0.66-1.25) mg/dL Glucose (74-99) mg/dL POC Glucose (mg/dL) 157 H 156 H (75-99) mg/dL Calcium (8.4-10.2) mg/dL Microbiology - Last 24 Hours (Table) 04/01/17 10:00 Blood Culture - Preliminary Blood No Growth after 120 hours Assessment and Plan Assessment: Extensive right perihilar infiltrate with pneumonia. Sputum culture showed MRSA and Pseudomonas recently Sepsis secondary to pneumonia History of Pseudomonas pneumonia February 2017 COPD with exacerbation COPD severe with an FEV1 of 45% predicted at baseline prostate cancer treated by radiation therapy chronic anxiety/depression hyperlipidemia maintained on Zocor DVT prophylaxis Plan: Patient be continued on antibiotics in the form of vancomycin and Zosyn. Blood cultures negative. Repeat sputum culture showed no growth. Pulmonary is following.. Patient was started on IV Lasix with improvement in symptoms today. Continue with the steroids and breathing treatments and follow closely. Further conditions based on the clinical course. Prognosis is guarded. Time with Patient: Greater than 30
--- NOTE | 2017-04-07 22:23 | P.PN ---
Subjective Progress Note Date: 04/07/17 Principal diagnosis: Pneumonia Patient is a 81-year-old male with a known history of COPD, hypertension and recent Pseudomonas sputum culture with pneumonia came to ER with complaints of worsening shortness of breath for the past 2 days. Patient has been having fever and tiredness and right-sided sharp chest pain to by 10 severity that increases with breathing. Patient did have pneumonia with positive sputum cultures with Pseudomonas and was treated with ciprofloxacin. Patient completed antibiotic course last Saturday and was told to view sputum sample again 2 days lateral. Sputum cultures done on 03/28/2017 showed MRSA and Pseudomonas. Patient does follow with Dr. Dennison as an outpatient. Patient was started on vancomycin and Zosyn at this time. Otherwise patient denied any nausea vomiting or abdominal pain. Patient did have remote history of smoking. Patient was saturating in the 80s and he came to the hospital. Patient was tachycardic, tachypneic and febrile with T-max 101.4 while in the hospital. 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 Extensive perihilar infiltrate in the right lung and left lung base. 04/02/2017 Patient's breathing status slightly improved otherwise still dyspneic with ambulation. Continued on antibiotics and steroids and breathing treatments. WBC count slightly improved. Pulmonary is following. Another sputum sample was sent. 04/03/2017 Sputum culture and blood culture showed no growth so far. Patient is still dyspneic with ambulation. Continued on current management. No acute overnight issues. 04/04/2017 Patient became short-winded and was in acute respiratory distress in the morning. Patient was placed on BiPAP. Continued on broad-spectrum antibiotics and IV steroids. Patient is requiring high flow oxygen otherwise no fever no chills. Pulmonary is following. Continues to be symptomatic with minimal exertion. Chest x-ray showed increased interstitial infiltrates. 04/05/2017 Patient's breathing is better today. Still requiring high flow nausea cannula at 8 L. Continues to be on broad-spectrum antibiotics. Slight improvement from yesterday otherwise still symptomatic. No fever no chills. 04/06/2017 Patient is still having shortness of breath. Requiring high flow nasal cannula. Patient was also found to have worsening leg swelling. Chest x-ray showed worsening airspace disease. Patient most likely having lung congestion. Patient was started on IV Lasix. Patient did have some improved symptoms later today. No fever no chills. No nausea vomiting or abdominal pain. No chest pain. 04/07/2017 Patient's breathing status is much improved today. Otherwise patient is still on high flow nausea cannula. Chest x-ray showed improved aeration both lungs. No fever no chills no other acute overnight issues. No nausea vomiting abdominal pain no fever no chills. All other review of systems negative except the above. current medications reviewed Active Medications Generic Name Dose Route Start Last Admin Trade Name Freq PRN Reason Stop Dose Admin Acetaminophen 650 mg 04/02/17 09:36 04/02/17 10:50 Tylenol Tab PO 650 mg Q6HR PRN Administration Fever and/ or Mild Pain Albuterol/Ipratropium 3 ml 04/02/17 08:00 04/07/17 19:26 Duoneb 0.5 Mg-3 Mg/3 Ml Soln INHALATION 3 ml RT-QID [facility] Administration Albuterol/Ipratropium 3 ml 04/01/17 20:31 Duoneb 0.5 Mg-3 Mg/3 Ml Soln INHALATION RT-Q2H PRN Shortness Of Breath Or Wheezing Ascorbic Acid 500 mg 04/02/17 12:00 04/07/17 11:24 Vitamin C PO 500 mg 1200 [facility] Administration Aspirin 81 mg 04/01/17 21:00 04/07/17 20:41 Aspirin PO Not Given HS [facility] Atorvastatin Calcium 10 mg 04/01/17 21:00 04/07/17 21:36 Lipitor PO 10 mg HS [facility] Administration Budesonide 1 mg 04/04/17 20:00 04/07/17 19:26 Pulmicort INHALATION 1 mg RT-BID [facility] Administration Buspirone HCl 5 mg 04/01/17 21:00 04/07/17 21:37 Buspar PO 5 mg BID [facility] Administration Calcium Carbonate/Glycine 500 mg 04/02/17 12:00 04/07/17 11:24 Tums PO 500 mg 1200 [facility] Administration Citalopram Hydrobromide 40 mg 04/01/17 21:00 04/07/17 21:37 Celexa PO 40 mg HS [facility] Administration Formoterol Fumarate 20 mcg 04/04/17 20:00 04/07/17 19:26 Perforomist INHALATION 20 mcg RT-BID [facility] Administration Furosemide 20 mg 04/08/17 09:00 Lasix IV DAILY [facility] Guaifenesin/Dextromethorphan 1 each 04/02/17 09:00 04/07/17 08:21 Mucinex Dm PO 1 each DAILY [facility] Administration Heparin Sodium (Porcine) 5,000 unit 04/01/17 21:00 04/07/17 21:37 Heparin SQ 5,000 unit Q12HR [facility] Administration Piperacillin/Tazobactam/ 50 mls @ 12.5 mls/hr 04/04/17 16:00 04/07/17 17:45 Dextrose 3.375 gm/ IV Solution IVPB 12.5 mls/hr Q8HR [facility] Administration Vancomycin HCl 1,500 mg/ 250 mls @ 125 mls/hr 04/04/17 20:00 04/07/17 21:51 Sodium Chloride IVPB 125 mls/hr Q8H [facility] Administration Insulin Aspart 0 unit 04/01/17 17:30 04/07/17 21:37 Novolog SQ 4 unit ACHS [facility] Administration Protocol Levofloxacin 500 mg 04/02/17 18:00 04/07/17 18:24 Levaquin PO 500 mg 1800 [facility] Administration Melatonin 3 mg 04/01/17 21:00 04/07/17 21:38 Melatonin PO 3 mg HS [facility] Administration Methylprednisolone Sodium Succinate 60 mg 04/01/17 18:00 04/07/17 18:24 Solu-Medrol IV 60 mg Q6HR [facility] Administration Miscellaneous Information 1 each 04/01/17 12:44 Pneumonia Protocol Utilized PO ONCE PRN Per Protocol Multivitamins 1 each 04/02/17 12:00 04/07/17 11:24 Theragran PO 1 each 1200 [facility] Administration Tamsulosin HCl 0.4 mg 04/01/17 21:00 04/07/17 21:38 Flomax PO 0.4 mg HS [facility] Administration Tramadol HCl 50 mg 04/02/17 09:36 Ultram PO Q6H PRN Moderate Pain Objective - Vital Signs Vital signs: Vital Signs Temp 97.9 F 04/07/17 20:00 Pulse 91 04/07/17 20:00 Resp 18 04/07/17 20:00 BP 156/75 04/07/17 20:00 Pulse Ox 91 L 04/07/17 20:00 Intake & Output 04/07/17 04/07/17 04/08/17 06:59 18:59 06:59 Intake Total 740 1070 Output Total 700 Balance 40 1070 Weight 83.5 kg Intake: IV 740 330 Piperacillin-Tazobactam 3 100 50 .375 gm In Dextrose/Water 1 50ml.bag @ 12.5 mls/hr IVPB Q8HR [facility] Rx#: [id number] Sodium Chloride 0.9% 1, 140 30 000 ml @ 40 mls/hr IV . Q24H [facility] Rx#:[id number] Vancomycin 1,500 mg In 500 250 Sodium Chloride 0.9% 250 ml @ 125 mls/hr IVPB Q8H [facility] Rx#:[id number] Oral 740 Output: Urine 700 Other: Voiding Method Urinal - Exam Patient is lying in the bed comfortably, no acute distress, awake alert and oriented.. HEENT: Normocephalic. Neck is supple. Pupils reactive. Nostrils clear. Oral cavity is moist. Ears reveal no drainage. Neck reveals no JVD, carotid bruits, or thyromegaly. CHEST EXAMINATION: Trachea is central. Symmetrical expansion. Improved air entry bilaterally. Mild expiratory wheezing no crackles crackles CARDIAC: Normal S1, S2 with no gallops. No murmurs ABDOMEN: Soft. Bowel sounds normal. No organomegaly. No abdominal bruits. Extremities: reveal no edema. No clubbing or cyanosis Neurologically awake, alert, oriented x3 with well-coordinated movements. No focal deficits noted Skin: No rash or skin lesions. Psychiatric: Coperative. Nonsuicidal Musculoskeletal: No joint swelling or deformity. Normal range of motion. - Labs CBC & Chem 7: 04/07/17 06:27 04/07/17 06:27 Labs: Abnormal Lab Results - Last 24 Hours (Table) 04/07/17 04/07/17 04/07/17 Range/Units 06:27 06:27 06:29 RBC 3.66 L (4.30-5.90) m/uL Hgb 9.6 L D (13.0-17.5) gm/dL Hct 32.4 L (39.0-53.0) % MCHC 29.7 L (31.0-37.0) g/dL RDW 15.8 H (11.5-15.5) % Neutrophils # 9.9 H (1.3-7.7) k/uL Lymphocytes # 0.3 L (1.0-4.8) k/uL Carbon Dioxide 36 H (22-30) mmol/L BUN 34 H (9-20) mg/dL Glucose 143 H (74-99) mg/dL POC Glucose (mg/dL) 147 H (75-99) mg/dL Calcium 8.0 L (8.4-10.2) mg/dL 04/07/17 04/07/17 04/07/17 Range/Units 12:06 16:57 21:16 RBC (4.30-5.90) m/uL Hgb (13.0-17.5) gm/dL Hct (39.0-53.0) % MCHC (31.0-37.0) g/dL RDW (11.5-15.5) % Neutrophils # (1.3-7.7) k/uL Lymphocytes # (1.0-4.8) k/uL Carbon Dioxide (22-30) mmol/L BUN (9-20) mg/dL Glucose (74-99) mg/dL POC Glucose (mg/dL) 155 H 149 H 171 H (75-99) mg/dL Calcium (8.4-10.2) mg/dL Microbiology - Last 24 Hours (Table) 04/01/17 10:00 Blood Culture - Final Blood No Growth after 144 hours Assessment and Plan Assessment: Extensive right perihilar infiltrate with pneumonia. Sputum culture showed MRSA and Pseudomonas recently Sepsis secondary to pneumonia History of Pseudomonas pneumonia February 2017 COPD with exacerbation COPD severe with an FEV1 of 45% predicted at baseline prostate cancer treated by radiation therapy chronic anxiety/depression hyperlipidemia maintained on Zocor DVT prophylaxis Plan: Patient be continued on antibiotics in the form of vancomycin and Zosyn. Blood cultures negative. Repeat sputum culture showed no growth. Pulmonary is following.. Patient was started on IV Lasix with improvement in symptoms today. Continue with the steroids and breathing treatments and follow closely. Further conditions based on the clinical course. Prognosis is guarded. Time with Patient: Greater than 30
[2017-04-08] MEDS: methylPREDNISolone SOD SUCCI 125 MG/2 ML VIAL IV SCH ×5 (00:22→22:26)
[2017-04-08] MEDS: PIPERACILLIN-TAZOBACTAM 3.375 GM in DEXTROSE/WATER 1 50ML.BAG IVPB SCH ×4 (00:25→22:25)
[2017-04-08] MEDS: VANCOMYCIN 1,500 MG in SODIUM CHLORIDE 0.9% 250 ML IVPB SCH ×3 (04:33→20:09)
[2017-04-08 06:18] LABS: Anion Gap 3 mmol/L; Blood Urea Nitrogen 37 mg/dL (9-20); Calcium 7.8 mg/dL (8.4-10.2); Carbon Dioxide 39 mmol/L (22-30); Chloride 99 mmol/L (98-107); Glucose 148 mg/dL (74-99); Potassium 4.1 mmol/L (3.5-5.1); Sodium 141 mmol/L (137-145)
[2017-04-08 06:25] LABS: Glucose,Whole Blood 151 mg/dL (75-99)
[2017-04-08] MEDS: INSULIN ASPART 100 UNIT/ML 1 ML 10 ML VIAL SQ SCH ×4 (06:50→22:20)
[2017-04-08] MEDS: FORMOTEROL FUMARATE 20 MCG/2 ML NEBU INHALATION SCH ×2 (09:09→21:38)
[2017-04-08] MEDS: IPRATROPIUM-ALBUTEROL 3 ML NEB INHALATION SCH ×4 (09:09→21:38)
[2017-04-08] MEDS: BUDESONIDE 1 MG/2 ML NEBU INHALATION SCH ×2 (09:09→21:39)
[2017-04-08] MEDS: guaiFENesin-DM 600/30MG 1 EACH TAB.ER.12H PO SCH (09:23)
[2017-04-08] MEDS: busPIRone HCl 5 MG TAB PO SCH ×2 (09:23→19:58)
[2017-04-08] MEDS: CALCIUM CARBONATE 500 MG CHEWABLE PO SCH (09:23)
[2017-04-08] MEDS: MULTIVITAMINS, THERA 1 EACH TAB PO SCH (09:24)
[2017-04-08] MEDS: ASCORBIC ACID 500 MG TAB PO SCH (09:24)
[2017-04-08] MEDS: HEPARIN SODIUM,PORCINE 5,000 UNIT/ML 1 ML VIAL SQ SCH ×2 (09:25→19:59)
[2017-04-08] MEDS: FUROSEMIDE 10 MG/ML 4 ML VIAL IV SCH (09:25)
[2017-04-08 11:58] LABS: Glucose,Whole Blood 151 mg/dL (75-99)
--- NOTE | 2017-04-08 12:37 | P.PN ---
Subjective Progress Note Date: 04/08/17 Principal diagnosis: Acute right sided pneumonia This is a very pleasant 81-year-old gentleman who follows with Dr. Carolina as his primary care physician. He has a history of prostate cancer treated with radiation therapy, hyperlipidemia, anxiety/depression. He also has a history of chronic obstructive pulmonary disease with a 40 year 2 pack per day smoking history. He did quit back in 1991. He is treated with Advair, Spiriva and albuterol in the outpatient setting. He was here one month ago for COPD exacerbation. His FEV1 value is 45% of predicted. Oxygen dependent. His influenza screen at that time was negative. He was found however to have pseudomonas aeruginosa positive sputum. A follow-up sputum on 03/28/2017 is positive for Pseudomonas along with methicillin resistant staph aureus. He presented here again yesterday to the emergency room with complaints of increasing shortness of breath, cough and congestion. He also had complaints of sharp right-sided chest discomfort. His chest x-ray shows areas of chronic emphysema changes with scattered fibrosis. There is a persistent right midlung lateral infiltrate which was new compared to previous. White count 18.7. He's had a T-max of 101.4. Currently on 5 L/m per nasal cannula. He has been initiated on vancomycin and Levaquin. The patient is seen again today 04/03/2017 in follow-up on the selective care unit. He is currently awake and alert in no acute distress. He is still having dyspnea with minimal conversation and minimal activity. He has been afebrile. Maintaining O2 saturations in the low 90s on 5 L high flow nasal cannula. Slightly tachycardic. Slightly tachypneic. Hemodynamically stable. Blood culture reveals no growth to date. Sputum culture reveals no growth. May need a better specimen. White count 17.4. Hemoglobin 11.1. Creatinine 0.69. He remains on vancomycin and Levaquin. The patient is seen again today 04/04/2017 in follow-up on the selective care unit. He is currently resting in bed. He is awake and alert in no acute distress. He continues with a loose productive cough. He has been slow to progress. He is continued on vancomycin and Levaquin. Follow-up sputum was insufficient. Attempt to obtain a repeat sputum. He is utilizing 55% Ventimask to maintain O2 saturations in the 90s. He has been afebrile. Slightly tachycardia. Blood pressure stable. Follow-up chest x-ray pending. The patient is seen again today 04/05/2017 in follow-up on the selective care unit. He is awake and alert in no acute distress. He is breathing a bit better today as compared to yesterday. We were able to titrate down the FiO2 to 8 L high flow nasal cannula. Yesterday's chest x-ray did show some worsening right lung pneumonia as well as some left lower lung infiltrate. He rested well last night. He was initiated on Zosyn yesterday in addition to the vancomycin and Levaquin. Creatinine 0.70. He remains afebrile. Hemodynamically stable. The patient is seen again today 04/06/2017 in follow-up on the selective care unit. He is currently resting comfortably in bed. He is awake and alert in no acute distress. He was able to titrate down his FiO2 to 6 L last evening however he developed shortness of breath while being up to the bathroom and is currently still on 8 L high flow nasal cannula. He has remained afebrile. Unfortunately he has chest x-ray today continues to reveal worsening airspace disease more so on the right lung. He has also been gradually having increased edema of the upper extremities trace edema lower extremities. He was given Lasix IVP 1 this morning. Creatinine 0.64. Reevaluated today on 04/07/2017, patient has been diuresing significantly, surprisingly clinically the patient is feeling better, chest x-ray showed slight improvement compared the chest x-ray yesterday. Which implies some component of pulmonary edema in addition to his right sided pneumonia. Labs showed relatively normal CBC except hemoglobin 9.6. Basic metabolic profile is normal BUN is 34 creatinine is 0.68, slightly prerenal azotemia noted. I will cut down the furosemide to 20 mg IV push daily instead of 40 mg IV push daily. Patient was reevaluated today on 04/08/2017, remains about the same remains on a high flow nasal cannula at 8 L/m, with marginal saturations. Chest x-ray yesterday showed minimal improvement, and I plan to repeat the chest x-ray tomorrow. Patient is about the same as he was yesterday. But noted to be more dyspneic today compared to yesterday. His basic metabolic profile is normal BUN is 37 creatinine is 0.80 patient remains on Lasix, his bicarb level is 39. Has shortness of breath with any activity, intermittent cough. Objective - Vital Signs Vital signs: Vital Signs Temp 98.7 F 04/08/17 12:00 Pulse 111 H 04/08/17 12:00 Resp 22 04/08/17 12:00 BP 168/73 04/08/17 12:00 Pulse Ox 90 L 04/08/17 12:00 Intake & Output 04/07/17 04/08/17 04/08/17 18:59 06:59 18:59 Intake Total 1070 670 Output Total 550 150 Balance 1070 120 -150 Weight 83.6 kg Intake: IV 330 670 Piperacillin-Tazobactam 3 50 50 .375 gm In Dextrose/Water 1 50ml.bag @ 12.5 mls/hr IVPB Q8HR [facility] Rx#: [id number] Sodium Chloride 0.9% 1, 30 120 000 ml @ 40 mls/hr IV . Q24H [facility] Rx#:[id number] Vancomycin 1,500 mg In 250 500 Sodium Chloride 0.9% 250 ml @ 125 mls/hr IVPB Q8H [facility] Rx#:[id number] Oral 740 Output: Urine 550 150 Other: Voiding Method Urinal - Exam GENERAL EXAM: Alert, comfortable. HEAD: Normocephalic. EYES: Normal reaction of pupils, equal size. NOSE: Clear with pink turbinates. THROAT: No erythema or exudates. NECK: No masses, no JVD. CHEST: No chest wall deformity. LUNGS: Equal air entry with scattered rhonchi more so on the right, crackles in the posterior right base only CVS: S1 and S2 normal with no audible murmur, regular rhythm. ABDOMEN: No hepatosplenomegaly, normal bowel sounds, no guarding or rigidity. SPINE: No scoliosis or deformity SKIN: No rashes. Areas of ecchymosis. CENTRAL NERVOUS SYSTEM: No focal deficits, tone is normal in all 4 extremities. EXTREMITIES: There trace peripheral edema. No clubbing, no cyanosis. Peripheral pulses are intact. - Labs CBC & Chem 7: 04/07/17 06:27 04/08/17 05:33 Labs: Abnormal Lab Results - Last 24 Hours (Table) 04/07/17 04/07/17 04/08/17 Range/Units 16:57 21:16 05:33 Carbon Dioxide 39 H (22-30) mmol/L BUN 37 H (9-20) mg/dL Glucose 148 H (74-99) mg/dL POC Glucose (mg/dL) 149 H 171 H (75-99) mg/dL Calcium 7.8 L (8.4-10.2) mg/dL 04/08/17 04/08/17 Range/Units 06:15 11:56 Carbon Dioxide (22-30) mmol/L BUN (9-20) mg/dL Glucose (74-99) mg/dL POC Glucose (mg/dL) 151 H 151 H (75-99) mg/dL Calcium (8.4-10.2) mg/dL Microbiology - Last 24 Hours (Table) 04/01/17 10:00 Blood Culture - Final Blood No Growth after 144 hours Assessment and Plan Assessment: #1 Acute right mid lung pneumonia with recent sputum cultures positive for Pseudomonas aeruginosa and methicillin-resistant Staphylococcus aureus. Presently on Zosyn and vancomycin #2 Acute febrile illness secondary to above. #3 Acute on chronic hypoxic respiratory failure secondary to above. #4 Acute exacerbation of chronic obstructive pulmonary disease secondary to above. Treated with Advair, Spiriva and albuterol in the outpatient setting. #5 History of prostate cancer treated with radiation therapy. Currently on Flomax. #7 History of anxiety/depression. Currently on BuSpar and Celexa. #8 Hyperlipidemia. Currently on simvastatin. #9 40 year 2 pack per day smoking history however quit back in 1991. Recommendation: Continue present course of antibiotics, bronchodilators, diuretics, follow-up chest x-ray in a.m. Again I touch bases with the patient regarding the option of bronchoscopy and BAL of the right lung, it is rather risky, and he withdraws or not have it done at this point. Time with Patient: Less than 30
[2017-04-08 14:47] VITALS: BMI 26.4
[2017-04-08] MEDS: LEVOFLOXACIN 500 MG TAB PO SCH (15:54)
--- NOTE | 2017-04-08 16:00 | P.PN ---
Subjective 81-year-old male with a known history of COPD, hypertension and recent Pseudomonas sputum culture with pneumonia came to ER with complaints of worsening shortness of breath for the past 2 days. Patient has been having fever and tiredness and right-sided sharp chest pain to by 10 severity that increases with breathing. Patient did have pneumonia with positive sputum cultures with Pseudomonas and was treated with ciprofloxacin. Patient completed antibiotic course last Saturday and was told to view sputum sample again 2 days lateral. Sputum cultures done on 03/28/2017 showed MRSA and Pseudomonas. Patient does follow with Dr. Dennison as an outpatient. Patient was started on vancomycin and Zosyn at this time. Otherwise patient denied any nausea vomiting or abdominal pain. Patient did have remote history of smoking. Patient was saturating in the 80s and he came to the hospital. Patient was tachycardic, tachypneic and febrile with T-max 101.4 while in the hospital. 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 Extensive perihilar infiltrate in the right lung and left lung base. 04/02/2017 Patient's breathing status slightly improved otherwise still dyspneic with ambulation. Continued on antibiotics and steroids and breathing treatments. WBC count slightly improved. Pulmonary is following. Another sputum sample was sent. 04/03/2017 Sputum culture and blood culture showed no growth so far. Patient is still dyspneic with ambulation. Continued on current management. No acute overnight issues. 04/04/2017 Patient became short-winded and was in acute respiratory distress in the morning. Patient was placed on BiPAP. Continued on broad-spectrum antibiotics and IV steroids. Patient is requiring high flow oxygen otherwise no fever no chills. Pulmonary is following. Continues to be symptomatic with minimal exertion. Chest x-ray showed increased interstitial infiltrates. 04/05/2017 Patient's breathing is better today. Still requiring high flow nausea cannula at 8 L. Continues to be on broad-spectrum antibiotics. Slight improvement from yesterday otherwise still symptomatic. No fever no chills. 04/06/2017 Patient is still having shortness of breath. Requiring high flow nasal cannula. Patient was also found to have worsening leg swelling. Chest x-ray showed worsening airspace disease. Patient most likely having lung congestion. Patient was started on IV Lasix. Patient did have some improved symptoms later today. No fever no chills. No nausea vomiting or abdominal pain. No chest pain. 04/07/2017 Patient's breathing status is much improved today. Otherwise patient is still on high flow nausea cannula. Chest x-ray showed improved aeration both lungs. No fever no chills no other acute overnight issues. No nausea vomiting abdominal pain no fever no chills. 04/08/2017 Patient still remains on 8 L of oxygen requiring 8 L of oxygen normally uses 4 L at home although clinically looks great. Pulmonology discussed about bronchoscopy and lavage patient is on vancomycin and Zosyn at this time to treat for Pseudomonas and MRSA in the lung All other review of systems negative except the above. current medications reviewed Objective - Vital Signs Vital signs: Vital Signs Temp 98.7 F 04/08/17 12:00 Pulse 110 H 04/08/17 13:16 Resp 22 04/08/17 12:00 BP 168/73 04/08/17 12:00 Pulse Ox 90 L 04/08/17 12:00 Intake & Output 04/07/17 04/08/17 04/08/17 18:59 06:59 18:59 Intake Total 1070 670 Output Total 550 150 Balance 1070 120 -150 Weight 83.6 kg 83.6 kg Intake: IV 330 670 Piperacillin-Tazobactam 3 50 50 .375 gm In Dextrose/Water 1 50ml.bag @ 12.5 mls/hr IVPB Q8HR [facility] Rx#: [id number] Sodium Chloride 0.9% 1, 30 120 000 ml @ 40 mls/hr IV . Q24H [facility] Rx#:[id number] Vancomycin 1,500 mg In 250 500 Sodium Chloride 0.9% 250 ml @ 125 mls/hr IVPB Q8H [facility] Rx#:[id number] Oral 740 Output: Urine 550 150 Other: Voiding Method Urinal - Exam Patient is lying in the bed comfortably, no acute distress, awake alert and oriented.. HEENT: Normocephalic. Neck is supple. Pupils reactive. Nostrils clear. Oral cavity is moist. Ears reveal no drainage. Neck reveals no JVD, carotid bruits, or thyromegaly. CHEST EXAMINATION: Trachea is central. Symmetrical expansion. Improved air entry bilaterally. Mild expiratory wheezing no crackles crackles CARDIAC: Normal S1, S2 with no gallops. No murmurs ABDOMEN: Soft. Bowel sounds normal. No organomegaly. No abdominal bruits. Extremities: reveal no edema. No clubbing or cyanosis Neurologically awake, alert, oriented x3 with well-coordinated movements. No focal deficits noted Skin: No rash or skin lesions. Psychiatric: Coperative. Nonsuicidal Musculoskeletal: No joint swelling or deformity. Normal range of motion. - Labs CBC & Chem 7: 04/07/17 06:27 04/08/17 05:33 Labs: Abnormal Lab Results - Last 24 Hours (Table) 04/07/17 04/07/17 04/08/17 Range/Units 16:57 21:16 05:33 Carbon Dioxide 39 H (22-30) mmol/L BUN 37 H (9-20) mg/dL Glucose 148 H (74-99) mg/dL POC Glucose (mg/dL) 149 H 171 H (75-99) mg/dL Calcium 7.8 L (8.4-10.2) mg/dL 04/08/17 04/08/17 Range/Units 06:15 11:56 Carbon Dioxide (22-30) mmol/L BUN (9-20) mg/dL Glucose (74-99) mg/dL POC Glucose (mg/dL) 151 H 151 H (75-99) mg/dL Calcium (8.4-10.2) mg/dL Microbiology - Last 24 Hours (Table) 04/01/17 10:00 Blood Culture - Final Blood No Growth after 144 hours Assessment and Plan Plan: Assessment and Plan Assessment: Extensive right perihilar infiltrate with pneumonia. Sputum culture showed MRSA and Pseudomonas recently, patient is on vancomycin and Zosyn to cover above -mentioned organisms respectively Sepsis secondary to pneumonia Acute on chronic hypoxic and hypercapnic respiratory failure secondary to pneumonia with COPD exacerbation History of Pseudomonas pneumonia February 2017 COPD with exacerbation COPD severe with an FEV1 of 45% predicted at baseline prostate cancer treated by radiation therapy chronic anxiety/depression hyperlipidemia maintained on Zocor DVT prophylaxis Plan: Patient be continued on antibiotics in the form of vancomycin and Zosyn. Blood cultures negative. Repeat sputum culture showed no growth. Pulmonary is following.. Continue on IV Lasix with improvement in symptoms today. Continue with the steroids and breathing treatments and follow closely. Further conditions based on the clinical course. Prognosis is guarded.
[2017-04-08] MEDS ORDERED: ALPRAZolam 0.25 MG TAB PO PRN (16:08)
[2017-04-08] MEDS ORDERED: LORazepam 2 MG/ML INJ IV PRN (16:16)
[2017-04-08 16:32] LABS: Glucose,Whole Blood 139 mg/dL (75-99)
[2017-04-08] MEDS: ATORVASTATIN 10 MG TAB PO SCH (19:56)
[2017-04-08] MEDS: ASPIRIN 81 MG PO SCH (19:57)
[2017-04-08] MEDS: MELATONIN 3 MG TABLET PO SCH (19:59)
[2017-04-08] MEDS: TAMSULOSIN 0.4 MG CAP.ER.24H PO SCH (19:59)
[2017-04-08] MEDS: CITALOPRAM HYDROBROMIDE 20 MG TAB PO SCH (19:59)
[2017-04-08 21:51] LABS: Glucose,Whole Blood 194 mg/dL (75-99)
[2017-04-09] MEDS: VANCOMYCIN 1,500 MG in SODIUM CHLORIDE 0.9% 250 ML IVPB SCH ×2 (04:00→12:17)
[2017-04-09 06:12] LABS: Glucose,Whole Blood 168 mg/dL (75-99)
[2017-04-09 06:19] LABS: Anisocytosis Slight; HCT 33.8 % (39.0-53.0); HGB 10.2 gm/dL (13.0-17.5); Hypochromasia Moderate; MCH 27.1 pg (25.0-35.0); MCV 90.4 fL (80.0-100.0); Mean Platelet Volume 7.4; Platelet Count 253 k/uL (150-450); RBC 3.74 m/uL (4.30-5.90); RDW 16.4 % (11.5-15.5); WBC 12.3 k/uL (3.8-10.6)
[2017-04-09 06:35] LABS: Anion Gap 8 mmol/L; Blood Urea Nitrogen 36 mg/dL (9-20); Calcium 8.1 mg/dL (8.4-10.2); Carbon Dioxide 35 mmol/L (22-30); Chloride 99 mmol/L (98-107); Glucose 157 mg/dL (74-99); Potassium 3.9 mmol/L (3.5-5.1); Sodium 142 mmol/L (137-145)
[2017-04-09] MEDS: methylPREDNISolone SOD SUCCI 125 MG/2 ML VIAL IV SCH ×4 (06:47→23:08)
[2017-04-09] MEDS: INSULIN ASPART 100 UNIT/ML 1 ML 10 ML VIAL SQ SCH ×4 (06:49→21:01)
--- NOTE | 2017-04-09 07:35 | XR ---
EXAMINATION TYPE: XR chest 1V portable DATE OF EXAM: 04/09/2017 Comparison: 04/07/2017 Clinical History: 81-year-old male follow-up pneumonia Findings: Heart normal size. Relative lucencies and hyperinflation suggesting underlying emphysema. Confluent p eripheral right lung and left basilar densities are unchanged from 04/07/2017. No significant pleural effusion. Impression: Multifocal infiltrates, right greater than left superimposed on COPD. Overall findings are unchanged from 04/07/2017.
[2017-04-09] MEDS: CALCIUM CARBONATE 500 MG CHEWABLE PO SCH (08:41)
[2017-04-09] MEDS: PIPERACILLIN-TAZOBACTAM 3.375 GM in DEXTROSE/WATER 1 50ML.BAG IVPB SCH ×3 (08:41→23:07)
[2017-04-09] MEDS: busPIRone HCl 5 MG TAB PO SCH ×2 (08:42→20:56)
[2017-04-09] MEDS: MULTIVITAMINS, THERA 1 EACH TAB PO SCH (08:44)
[2017-04-09] MEDS: guaiFENesin-DM 600/30MG 1 EACH TAB.ER.12H PO SCH (08:44)
[2017-04-09] MEDS: ASCORBIC ACID 500 MG TAB PO SCH (08:44)
[2017-04-09] MEDS: FUROSEMIDE 10 MG/ML 4 ML VIAL IV SCH (08:44)
[2017-04-09] MEDS: HEPARIN SODIUM,PORCINE 5,000 UNIT/ML 1 ML VIAL SQ SCH ×2 (08:45→20:56)
[2017-04-09] MEDS: IPRATROPIUM-ALBUTEROL 3 ML NEB INHALATION SCH ×4 (09:03→19:07)
[2017-04-09] MEDS: BUDESONIDE 1 MG/2 ML NEBU INHALATION SCH ×2 (09:03→19:07)
[2017-04-09] MEDS: FORMOTEROL FUMARATE 20 MCG/2 ML NEBU INHALATION SCH ×2 (09:03→19:20)
[2017-04-09] MEDS ORDERED: VANCOMYCIN TROUGH DUE 1 EACH MISC MISCELLANE ONE (11:00)
[2017-04-09 12:10] LABS: Glucose,Whole Blood 150 mg/dL (75-99)
--- NOTE | 2017-04-09 13:13 | P.PN ---
Subjective Progress Note Date: 04/09/17 Principal diagnosis: Acute right mid lung pneumonia. This is a very pleasant 81-year-old gentleman who follows with Dr. Carolina as his primary care physician. He has a history of prostate cancer treated with radiation therapy, hyperlipidemia, anxiety/depression. He also has a history of chronic obstructive pulmonary disease with a 40 year 2 pack per day smoking history. He did quit back in 1991. He is treated with Advair, Spiriva and albuterol in the outpatient setting. He was here one month ago for COPD exacerbation. His FEV1 value is 45% of predicted. Oxygen dependent. His influenza screen at that time was negative. He was found however to have pseudomonas aeruginosa positive sputum. A follow-up sputum on 03/28/2017 is positive for Pseudomonas along with methicillin resistant staph aureus. He presented here again yesterday to the emergency room with complaints of increasing shortness of breath, cough and congestion. He also had complaints of sharp right-sided chest discomfort. His chest x-ray shows areas of chronic emphysema changes with scattered fibrosis. There is a persistent right midlung lateral infiltrate which was new compared to previous. White count 18.7. He's had a T-max of 101.4. Currently on 5 L/m per nasal cannula. He has been initiated on vancomycin and Levaquin. The patient is seen again today 04/03/2017 in follow-up on the selective care unit. He is currently awake and alert in no acute distress. He is still having dyspnea with minimal conversation and minimal activity. He has been afebrile. Maintaining O2 saturations in the low 90s on 5 L high flow nasal cannula. Slightly tachycardic. Slightly tachypneic. Hemodynamically stable. Blood culture reveals no growth to date. Sputum culture reveals no growth. May need a better specimen. White count 17.4. Hemoglobin 11.1. Creatinine 0.69. He remains on vancomycin and Levaquin. The patient is seen again today 04/04/2017 in follow-up on the selective care unit. He is currently resting in bed. He is awake and alert in no acute distress. He continues with a loose productive cough. He has been slow to progress. He is continued on vancomycin and Levaquin. Follow-up sputum was insufficient. Attempt to obtain a repeat sputum. He is utilizing 55% Ventimask to maintain O2 saturations in the 90s. He has been afebrile. Slightly tachycardia. Blood pressure stable. Follow-up chest x-ray pending. The patient is seen again today 04/05/2017 in follow-up on the selective care unit. He is awake and alert in no acute distress. He is breathing a bit better today as compared to yesterday. We were able to titrate down the FiO2 to 8 L high flow nasal cannula. Yesterday's chest x-ray did show some worsening right lung pneumonia as well as some left lower lung infiltrate. He rested well last night. He was initiated on Zosyn yesterday in addition to the vancomycin and Levaquin. Creatinine 0.70. He remains afebrile. Hemodynamically stable. The patient is seen again today 04/06/2017 in follow-up on the selective care unit. He is currently resting comfortably in bed. He is awake and alert in no acute distress. He was able to titrate down his FiO2 to 6 L last evening however he developed shortness of breath while being up to the bathroom and is currently still on 8 L high flow nasal cannula. He has remained afebrile. Unfortunately he has chest x-ray today continues to reveal worsening airspace disease more so on the right lung. He has also been gradually having increased edema of the upper extremities trace edema lower extremities. He was given Lasix IVP 1 this morning. Creatinine 0.64. Reevaluated today on 04/07/2017, patient has been diuresing significantly, surprisingly clinically the patient is feeling better, chest x-ray showed slight improvement compared the chest x-ray yesterday. Which implies some component of pulmonary edema in addition to his right sided pneumonia. Labs showed relatively normal CBC except hemoglobin 9.6. Basic metabolic profile is normal BUN is 34 creatinine is 0.68, slightly prerenal azotemia noted. I will cut down the furosemide to 20 mg IV push daily instead of 40 mg IV push daily. Patient was reevaluated today on 04/08/2017, remains about the same remains on a high flow nasal cannula at 8 L/m, with marginal saturations. Chest x-ray yesterday showed minimal improvement, and I plan to repeat the chest x-ray tomorrow. Patient is about the same as he was yesterday. But noted to be more dyspneic today compared to yesterday. His basic metabolic profile is normal BUN is 37 creatinine is 0.80 patient remains on Lasix, his bicarb level is 39. Has shortness of breath with any activity, intermittent cough. The patient is seen again today 04/09/2017 in follow-up on the selective care unit. He is awake and alert in no acute distress. He is finally doing a little better today. He states he is breathing somewhat easier. He is still having issues with oxygenation remains on 8 L high flow nasal cannula. His O2 sat is currently 90%. His chest x-ray shows continued infiltrates more so on the right lung. His cough is nonproductive. White count 12.3. Hemoglobin 10.2. Creatinine 0.72. Bicarb 35. He remains on 20 mg of IV Lasix daily. Objective - Vital Signs Vital signs: Vital Signs Temp 98.0 F 04/09/17 12:00 Pulse 114 H 04/09/17 12:07 Resp 22 04/09/17 12:00 BP 163/86 04/09/17 12:00 Pulse Ox 91 L 04/09/17 12:00 Intake & Output 04/08/17 04/09/17 04/09/17 18:59 06:59 18:59 Intake Total 720 300 Output Total 150 Balance 570 300 Weight 83.6 kg 83.7 kg Intake: IV 300 Piperacillin-Tazobactam 3 50 .375 gm In Dextrose/Water 1 50ml.bag @ 12.5 mls/hr IVPB Q8HR JANETTE Rx#: [id number] Vancomycin 1,500 mg In 250 Sodium Chloride 0.9% 250 ml @ 125 mls/hr IVPB Q8H JANETTE Rx#:[id number] Oral 720 Output: Urine 150 Other: Voiding Method Urinal Urinal Urinal # Voids 2 1 - Exam GENERAL EXAM: Alert, comfortable. Slow to progress. HEAD: Normocephalic. EYES: Normal reaction of pupils, equal size. NOSE: Clear with pink turbinates. THROAT: No erythema or exudates. NECK: No masses, no JVD. CHEST: No chest wall deformity. LUNGS: Equal air entry with scattered rhonchi more so on the right, crackles in the posterior bases. CVS: S1 and S2 normal with no audible murmur, regular rhythm. ABDOMEN: No hepatosplenomegaly, normal bowel sounds, no guarding or rigidity. SPINE: No scoliosis or deformity SKIN: No rashes. Areas of ecchymosis. CENTRAL NERVOUS SYSTEM: No focal deficits, tone is normal in all 4 extremities. EXTREMITIES: There trace peripheral edema. No clubbing, no cyanosis. Peripheral pulses are intact. - Labs CBC & Chem 7: 04/09/17 05:41 04/09/17 05:41 Labs: Abnormal Lab Results - Last 24 Hours (Table) 04/08/17 04/08/17 04/09/17 Range/Units 16:28 21:48 05:41 WBC 12.3 H (3.8-10.6) k/uL RBC 3.74 L (4.30-5.90) m/uL Hgb 10.2 L (13.0-17.5) gm/dL Hct 33.8 L (39.0-53.0) % MCHC 30.0 L (31.0-37.0) g/dL RDW 16.4 H (11.5-15.5) % Carbon Dioxide (22-30) mmol/L BUN (9-20) mg/dL Glucose (74-99) mg/dL POC Glucose (mg/dL) 139 H 194 H (75-99) mg/dL Calcium (8.4-10.2) mg/dL 04/09/17 04/09/17 04/09/17 Range/Units 05:41 06:09 12:07 WBC (3.8-10.6) k/uL RBC (4.30-5.90) m/uL Hgb (13.0-17.5) gm/dL Hct (39.0-53.0) % MCHC (31.0-37.0) g/dL RDW (11.5-15.5) % Carbon Dioxide 35 H (22-30) mmol/L BUN 36 H (9-20) mg/dL Glucose 157 H (74-99) mg/dL POC Glucose (mg/dL) 168 H 150 H (75-99) mg/dL Calcium 8.1 L (8.4-10.2) mg/dL Assessment and Plan Assessment: Impression: #1 Acute right mid lung pneumonia with recent sputum cultures positive for Pseudomonas aeruginosa and methicillin-resistant Staphylococcus aureus. Initiated on vancomycin and Levaquin. Zosyn has also been added. Influenza screen negative. Follow-up sputum sample pending. #2 Acute febrile illness secondary to above. #3 Acute on chronic hypoxic respiratory failure secondary to above. #4 Acute exacerbation of chronic obstructive pulmonary disease secondary to above. Treated with Advair, Spiriva and albuterol in the outpatient setting. #5 History of prostate cancer treated with radiation therapy. Currently on Flomax. #7 History of anxiety/depression. Currently on BuSpar and Celexa. #8 Hyperlipidemia. Currently on simvastatin. #9 40 year 2 pack per day smoking history however quit back in 1991. Plan: The patient was seen and evaluated by Dr. Warren. His chest x-ray and labs were reviewed. His x-ray does not show significant improvement but he has improved clinically. He is breathing easier today. Currently on 8 L high flow nasal cannula to maintain O2 saturations in the 90s. We'll continue with Zosyn, vancomycin and Levaquin for now. We'll continue his treatment including IV Solu- Medrol, Pulmicort and Perforomist, DuoNeb inhalations. He is on heparin for DVT prophylaxis. Lasix 20 mg IV daily. Increase his activity as tolerated. We 'll continue to follow and make further recommendations based on his clinical status. I, the cosigning physician, performed a history & physical examination of the patient. Lungs sounds with scattered rhonchi more so on the right mid lung. Crackles in the posterior bases. Maintaining O2 saturations in the 90s on 8 L high flow nasal cannula. I discussed the assessment and plan of care with my nurse practitioner, Ce Tan. I attest to the above note as dictated by her.
--- NOTE | 2017-04-09 15:52 | P.PN ---
Subjective 81-year-old male with a known history of COPD, hypertension and recent Pseudomonas sputum culture with pneumonia came to ER with complaints of worsening shortness of breath for the past 2 days. Patient has been having fever and tiredness and right-sided sharp chest pain to by 10 severity that increases with breathing. Patient did have pneumonia with positive sputum cultures with Pseudomonas and was treated with ciprofloxacin. Patient completed antibiotic course last Saturday and was told to view sputum sample again 2 days lateral. Sputum cultures done on 03/28/2017 showed MRSA and Pseudomonas. Patient does follow with Dr. Dennison as an outpatient. Patient was started on vancomycin and Zosyn at this time. Otherwise patient denied any nausea vomiting or abdominal pain. Patient did have remote history of smoking. Patient was saturating in the 80s and he came to the hospital. Patient was tachycardic, tachypneic and febrile with T-max 101.4 while in the hospital. 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 Extensive perihilar infiltrate in the right lung and left lung base. 04/02/2017 Patient's breathing status slightly improved otherwise still dyspneic with ambulation. Continued on antibiotics and steroids and breathing treatments. WBC count slightly improved. Pulmonary is following. Another sputum sample was sent. 04/03/2017 Sputum culture and blood culture showed no growth so far. Patient is still dyspneic with ambulation. Continued on current management. No acute overnight issues. 04/04/2017 Patient became short-winded and was in acute respiratory distress in the morning. Patient was placed on BiPAP. Continued on broad-spectrum antibiotics and IV steroids. Patient is requiring high flow oxygen otherwise no fever no chills. Pulmonary is following. Continues to be symptomatic with minimal exertion. Chest x-ray showed increased interstitial infiltrates. 04/05/2017 Patient's breathing is better today. Still requiring high flow nausea cannula at 8 L. Continues to be on broad-spectrum antibiotics. Slight improvement from yesterday otherwise still symptomatic. No fever no chills. 04/06/2017 Patient is still having shortness of breath. Requiring high flow nasal cannula. Patient was also found to have worsening leg swelling. Chest x-ray showed worsening airspace disease. Patient most likely having lung congestion. Patient was started on IV Lasix. Patient did have some improved symptoms later today. No fever no chills. No nausea vomiting or abdominal pain. No chest pain. 04/07/2017 Patient's breathing status is much improved today. Otherwise patient is still on high flow nausea cannula. Chest x-ray showed improved aeration both lungs. No fever no chills no other acute overnight issues. No nausea vomiting abdominal pain no fever no chills. 04/08/2017 Patient still remains on 8 L of oxygen requiring 8 L of oxygen normally uses 4 L at home although clinically looks great. Pulmonology discussed about bronchoscopy and lavage patient is on vancomycin and Zosyn at this time to treat for Pseudomonas and MRSA in the lung. 04/09/2017 No overnight events patient is feeling well but remains on 8 L of oxygen All other review of systems negative except the above. current medications reviewed Objective - Vital Signs Vital signs: Vital Signs Temp 98.0 F 04/09/17 12:00 Pulse 114 H 04/09/17 12:07 Resp 22 04/09/17 12:00 BP 163/86 04/09/17 12:00 Pulse Ox 91 L 04/09/17 12:00 Intake & Output 04/08/17 04/09/17 04/09/17 18:59 06:59 18:59 Intake Total 720 300 300 Output Total 150 1300 Balance 570 300 -1000 Weight 83.6 kg 83.7 kg Intake: IV 300 300 Piperacillin-Tazobactam 3 50 50 .375 gm In Dextrose/Water 1 50ml.bag @ 12.5 mls/hr IVPB Q8HR [facility]TE Rx#: [id number] Vancomycin 1,500 mg In 250 250 Sodium Chloride 0.9% 250 ml @ 125 mls/hr IVPB Q8H [facility]TE Rx#:[id number] Oral 720 Output: Urine 150 1300 Other: Voiding Method Urinal Urinal Urinal # Voids 2 1 - Exam Patient is lying in the bed comfortably, no acute distress, awake alert and oriented.. HEENT: Normocephalic. Neck is supple. Pupils reactive. Nostrils clear. Oral cavity is moist. Ears reveal no drainage. Neck reveals no JVD, carotid bruits, or thyromegaly. CHEST EXAMINATION: Trachea is central. Symmetrical expansion. Improved air entry bilaterally. Mild expiratory wheezing no crackles crackles CARDIAC: Normal S1, S2 with no gallops. No murmurs ABDOMEN: Soft. Bowel sounds normal. No organomegaly. No abdominal bruits. Extremities: reveal no edema. No clubbing or cyanosis Neurologically awake, alert, oriented x3 with well-coordinated movements. No focal deficits noted Skin: No rash or skin lesions. Psychiatric: Coperative. Nonsuicidal Musculoskeletal: No joint swelling or deformity. Normal range of motion. - Labs CBC & Chem 7: 04/09/17 05:41 04/09/17 05:41 Labs: Abnormal Lab Results - Last 24 Hours (Table) 04/08/17 04/08/17 04/09/17 Range/Units 16:28 21:48 05:41 WBC 12.3 H (3.8-10.6) k/uL RBC 3.74 L (4.30-5.90) m/uL Hgb 10.2 L (13.0-17.5) gm/dL Hct 33.8 L (39.0-53.0) % MCHC 30.0 L (31.0-37.0) g/dL RDW 16.4 H (11.5-15.5) % Carbon Dioxide (22-30) mmol/L BUN (9-20) mg/dL Glucose (74-99) mg/dL POC Glucose (mg/dL) 139 H 194 H (75-99) mg/dL Calcium (8.4-10.2) mg/dL 04/09/17 04/09/17 04/09/17 Range/Units 05:41 06:09 12:07 WBC (3.8-10.6) k/uL RBC (4.30-5.90) m/uL Hgb (13.0-17.5) gm/dL Hct (39.0-53.0) % MCHC (31.0-37.0) g/dL RDW (11.5-15.5) % Carbon Dioxide 35 H (22-30) mmol/L BUN 36 H (9-20) mg/dL Glucose 157 H (74-99) mg/dL POC Glucose (mg/dL) 168 H 150 H (75-99) mg/dL Calcium 8.1 L (8.4-10.2) mg/dL Assessment and Plan Plan: Assessment and Plan Assessment: Extensive right perihilar infiltrate with pneumonia. Sputum culture showed MRSA and Pseudomonas recently, patient is on vancomycin and Zosyn to cover above -mentioned organisms respectively levofloxacin was discontinued Sepsis secondary to pneumonia Acute on chronic hypoxic and hypercapnic respiratory failure secondary to pneumonia with COPD exacerbation History of Pseudomonas pneumonia February 2017 COPD with exacerbation COPD severe with an FEV1 of 45% predicted at baseline prostate cancer treated by radiation therapy chronic anxiety/depression hyperlipidemia maintained on Zocor DVT prophylaxis Plan: Patient be continued on antibiotics in the form of vancomycin and Zosyn. Blood cultures negative. Repeat sputum culture showed no growth. Pulmonary is following.. Continue on IV Lasix with improvement in symptoms today. Continue with the steroids and breathing treatments and follow closely. Further conditions based on the clinical course. Prognosis is guarded.
[2017-04-09 16:41] LABS: Glucose,Whole Blood 150 mg/dL (75-99)
[2017-04-09 20:27] LABS: Glucose,Whole Blood 199 mg/dL (75-99)
[2017-04-09] MEDS: VANCOMYCIN 1,750 MG in SODIUM CHLORIDE 0.9% 250 ML IVPB SCH (20:55)
[2017-04-09] MEDS: ASPIRIN 81 MG PO SCH (20:56)
[2017-04-09] MEDS: CITALOPRAM HYDROBROMIDE 20 MG TAB PO SCH (20:56)
[2017-04-09] MEDS: MELATONIN 3 MG TABLET PO SCH (20:56)
[2017-04-09] MEDS: ATORVASTATIN 10 MG TAB PO SCH (20:56)
[2017-04-09] MEDS: TAMSULOSIN 0.4 MG CAP.ER.24H PO SCH (20:57)
[2017-04-09] MEDS: NYSTATIN 100,000 UNIT/ML SUSP 500,000 UNIT/5 ML CUP PO SCH (23:07)
[2017-04-10] MEDS: VANCOMYCIN 1,750 MG in SODIUM CHLORIDE 0.9% 250 ML IVPB SCH ×3 (03:18→21:34)
[2017-04-10] MEDS: methylPREDNISolone SOD SUCCI 125 MG/2 ML VIAL IV SCH ×4 (06:18→23:57)
[2017-04-10 06:23] LABS: Glucose,Whole Blood 151 mg/dL (75-99)
[2017-04-10] MEDS: INSULIN ASPART 100 UNIT/ML 1 ML 10 ML VIAL SQ SCH ×4 (06:29→22:02)
[2017-04-10] MEDS: FORMOTEROL FUMARATE 20 MCG/2 ML NEBU INHALATION SCH ×2 (07:57→19:04)
[2017-04-10] MEDS: BUDESONIDE 1 MG/2 ML NEBU INHALATION SCH ×2 (07:57→19:04)
[2017-04-10] MEDS: IPRATROPIUM-ALBUTEROL 3 ML NEB INHALATION SCH ×4 (07:57→19:06)
[2017-04-10] MEDS: PIPERACILLIN-TAZOBACTAM 3.375 GM in DEXTROSE/WATER 1 50ML.BAG IVPB SCH ×3 (08:32→23:57)
[2017-04-10] MEDS: NYSTATIN 100,000 UNIT/ML SUSP 500,000 UNIT/5 ML CUP PO SCH ×4 (08:42→21:54)
[2017-04-10] MEDS: guaiFENesin-DM 600/30MG 1 EACH TAB.ER.12H PO SCH (08:42)
[2017-04-10] MEDS: FUROSEMIDE 10 MG/ML 4 ML VIAL IV SCH (08:43)
[2017-04-10] MEDS: CALCIUM CARBONATE 500 MG CHEWABLE PO SCH (08:43)
[2017-04-10] MEDS: HEPARIN SODIUM,PORCINE 5,000 UNIT/ML 1 ML VIAL SQ SCH ×2 (08:44→21:35)
[2017-04-10] MEDS: MULTIVITAMINS, THERA 1 EACH TAB PO SCH (08:44)
[2017-04-10] MEDS: busPIRone HCl 5 MG TAB PO SCH ×2 (08:44→21:34)
[2017-04-10] MEDS: ASCORBIC ACID 500 MG TAB PO SCH (08:45)
[2017-04-10 11:39] LABS: Glucose,Whole Blood 131 mg/dL (75-99)
--- NOTE | 2017-04-10 12:27 | P.PN ---
Subjective Progress Note Date: 04/10/17 Principal diagnosis: Acute right mid lung pneumonia. This is a very pleasant 81-year-old gentleman who follows with Dr. Carolina as his primary care physician. He has a history of prostate cancer treated with radiation therapy, hyperlipidemia, anxiety/depression. He also has a history of chronic obstructive pulmonary disease with a 40 year 2 pack per day smoking history. He did quit back in 1991. He is treated with Advair, Spiriva and albuterol in the outpatient setting. He was here one month ago for COPD exacerbation. His FEV1 value is 45% of predicted. Oxygen dependent. His influenza screen at that time was negative. He was found however to have pseudomonas aeruginosa positive sputum. A follow-up sputum on 03/28/2017 is positive for Pseudomonas along with methicillin resistant staph aureus. He presented here again yesterday to the emergency room with complaints of increasing shortness of breath, cough and congestion. He also had complaints of sharp right-sided chest discomfort. His chest x-ray shows areas of chronic emphysema changes with scattered fibrosis. There is a persistent right midlung lateral infiltrate which was new compared to previous. White count 18.7. He's had a T-max of 101.4. Currently on 5 L/m per nasal cannula. He has been initiated on vancomycin and Levaquin. The patient is seen again today 04/03/2017 in follow-up on the selective care unit. He is currently awake and alert in no acute distress. He is still having dyspnea with minimal conversation and minimal activity. He has been afebrile. Maintaining O2 saturations in the low 90s on 5 L high flow nasal cannula. Slightly tachycardic. Slightly tachypneic. Hemodynamically stable. Blood culture reveals no growth to date. Sputum culture reveals no growth. May need a better specimen. White count 17.4. Hemoglobin 11.1. Creatinine 0.69. He remains on vancomycin and Levaquin. The patient is seen again today 04/04/2017 in follow-up on the selective care unit. He is currently resting in bed. He is awake and alert in no acute distress. He continues with a loose productive cough. He has been slow to progress. He is continued on vancomycin and Levaquin. Follow-up sputum was insufficient. Attempt to obtain a repeat sputum. He is utilizing 55% Ventimask to maintain O2 saturations in the 90s. He has been afebrile. Slightly tachycardia. Blood pressure stable. Follow-up chest x-ray pending. The patient is seen again today 04/05/2017 in follow-up on the selective care unit. He is awake and alert in no acute distress. He is breathing a bit better today as compared to yesterday. We were able to titrate down the FiO2 to 8 L high flow nasal cannula. Yesterday's chest x-ray did show some worsening right lung pneumonia as well as some left lower lung infiltrate. He rested well last night. He was initiated on Zosyn yesterday in addition to the vancomycin and Levaquin. Creatinine 0.70. He remains afebrile. Hemodynamically stable. The patient is seen again today 04/06/2017 in follow-up on the selective care unit. He is currently resting comfortably in bed. He is awake and alert in no acute distress. He was able to titrate down his FiO2 to 6 L last evening however he developed shortness of breath while being up to the bathroom and is currently still on 8 L high flow nasal cannula. He has remained afebrile. Unfortunately he has chest x-ray today continues to reveal worsening airspace disease more so on the right lung. He has also been gradually having increased edema of the upper extremities trace edema lower extremities. He was given Lasix IVP 1 this morning. Creatinine 0.64. Reevaluated today on 04/07/2017, patient has been diuresing significantly, surprisingly clinically the patient is feeling better, chest x-ray showed slight improvement compared the chest x-ray yesterday. Which implies some component of pulmonary edema in addition to his right sided pneumonia. Labs showed relatively normal CBC except hemoglobin 9.6. Basic metabolic profile is normal BUN is 34 creatinine is 0.68, slightly prerenal azotemia noted. I will cut down the furosemide to 20 mg IV push daily instead of 40 mg IV push daily. Patient was reevaluated today on 04/08/2017, remains about the same remains on a high flow nasal cannula at 8 L/m, with marginal saturations. Chest x-ray yesterday showed minimal improvement, and I plan to repeat the chest x-ray tomorrow. Patient is about the same as he was yesterday. But noted to be more dyspneic today compared to yesterday. His basic metabolic profile is normal BUN is 37 creatinine is 0.80 patient remains on Lasix, his bicarb level is 39. Has shortness of breath with any activity, intermittent cough. The patient is seen again today 04/09/2017 in follow-up on the selective care unit. He is awake and alert in no acute distress. He is finally doing a little better today. He states he is breathing somewhat easier. He is still having issues with oxygenation remains on 8 L high flow nasal cannula. His O2 sat is currently 90%. His chest x-ray shows continued infiltrates more so on the right lung. His cough is nonproductive. White count 12.3. Hemoglobin 10.2. Creatinine 0.72. Bicarb 35. He remains on 20 mg of IV Lasix daily. The patient is seen again today 04/10/2017 in follow-up on the selective care unit. He remains awake and alert in no acute distress. He is currently sitting up in bed. He states he is breathing easier today as compared to yesterday. His current FiO2 is down to 7 L while maintaining O2 saturations greater than 88%. Prelim sputum culture reveals few gram-positive cocci. He remains on vancomycin, Zosyn and Levaquin. No fever. Objective - Vital Signs Vital signs: Vital Signs Temp 96.9 F L 04/10/17 08:40 Pulse 102 H 04/10/17 11:42 Resp 18 04/10/17 08:40 BP 162/75 04/10/17 08:40 Pulse Ox 92 L 04/10/17 08:40 Intake & Output 04/09/17 04/10/17 04/10/17 18:59 06:59 18:59 Intake Total 1060 480 180 Output Total 1900 350 Balance -840 130 180 Weight 83.8 kg Intake: IV 650 250 Piperacillin-Tazobactam 3 150 .375 gm In Dextrose/Water 1 50ml.bag @ 12.5 mls/hr IVPB Q8HR [facility] Rx#: [id number] Vancomycin 1,500 mg In 500 250 Sodium Chloride 0.9% 250 ml @ 125 mls/hr IVPB Q8H [facility] Rx#:[id number] Intake, IV Titration 50 Amount Piperacillin-Tazobactam 3 50 .375 gm In Dextrose/Water 1 50ml.bag @ 12.5 mls/hr IVPB Q8HR [facility] Rx#: [id number] Oral 410 180 180 Output: Urine 1900 350 Other: Voiding Method Urinal Urinal # Voids 1 - Exam GENERAL EXAM: Alert, comfortable. Improving clinically. No acute distress. HEAD: Normocephalic. EYES: Normal reaction of pupils, equal size. NOSE: Clear with pink turbinates. THROAT: No erythema or exudates. NECK: No masses, no JVD. CHEST: No chest wall deformity. LUNGS: Equal air entry with scattered rhonchi more so on the right, crackles in the posterior bases. CVS: S1 and S2 normal with no audible murmur, regular rhythm. ABDOMEN: No hepatosplenomegaly, normal bowel sounds, no guarding or rigidity. SPINE: No scoliosis or deformity SKIN: No rashes. Areas of ecchymosis. CENTRAL NERVOUS SYSTEM: No focal deficits, tone is normal in all 4 extremities. EXTREMITIES: There trace peripheral edema. No clubbing, no cyanosis. Peripheral pulses are intact. - Labs CBC & Chem 7: 04/09/17 05:41 04/09/17 05:41 Labs: Abnormal Lab Results - Last 24 Hours (Table) 04/09/17 04/09/17 04/10/17 Range/Units 16:39 20:25 06:22 POC Glucose (mg/dL) 150 H 199 H 151 H (75-99) mg/dL 04/10/17 Range/Units 11:35 POC Glucose (mg/dL) 131 H (75-99) mg/dL Microbiology - Last 24 Hours (Table) 04/09/17 20:06 Gram Stain - Preliminary Sputum Assessment and Plan Assessment: Impression: #1 Acute right mid lung pneumonia with recent sputum cultures positive for Pseudomonas aeruginosa and methicillin-resistant Staphylococcus aureus. Initiated on vancomycin and Levaquin. Zosyn has also been added. Influenza screen negative. Follow-up sputum sample pulmonary with few gram-positive cocci. #2 Acute febrile illness secondary to above. Improved. #3 Acute on chronic hypoxic respiratory failure secondary to above. #4 Acute exacerbation of chronic obstructive pulmonary disease secondary to above. Treated with Advair, Spiriva and albuterol in the outpatient setting. #5 History of prostate cancer treated with radiation therapy. Currently on Flomax. #7 History of anxiety/depression. Currently on BuSpar and Celexa. #8 Hyperlipidemia. Currently on simvastatin. #9 40 year 2 pack per day smoking history however quit back in 1991. Plan: The patient was seen and evaluated by Dr. Warren. He is breathing easier today. Currently on 7 L high flow nasal cannula to maintain O2 saturations in the 90s. We will add a flutter valve. Continue incentive spirometer. We'll continue with Zosyn, vancomycin and Levaquin for now. We'll continue his treatment including IV Solu-Medrol, Pulmicort and Perforomist, DuoNeb inhalations. He is on heparin for DVT prophylaxis. Lasix 20 mg IV daily. Increase his activity as tolerated. We'll continue to follow and make further recommendations based on his clinical status. I, the cosigning physician, performed a history & physical examination of the patient. Lungs sounds with scattered rhonchi more so on the right mid lung. Crackles in the posterior bases. Maintaining O2 saturations in the 90s on 7 L high flow nasal cannula. I discussed the assessment and plan of care with my nurse practitioner, Ce Tan. I attest to the above note as dictated by her.
--- NOTE | 2017-04-10 16:37 | P.PN ---
Subjective 81-year-old male with a known history of COPD, hypertension and recent Pseudomonas sputum culture with pneumonia came to ER with complaints of worsening shortness of breath for the past 2 days. Patient has been having fever and tiredness and right-sided sharp chest pain to by 10 severity that increases with breathing. Patient did have pneumonia with positive sputum cultures with Pseudomonas and was treated with ciprofloxacin. Patient completed antibiotic course last Saturday and was told to view sputum sample again 2 days lateral. Sputum cultures done on 03/28/2017 showed MRSA and Pseudomonas. Patient does follow with Dr. Dennison as an outpatient. Patient was started on vancomycin and Zosyn at this time. Otherwise patient denied any nausea vomiting or abdominal pain. Patient did have remote history of smoking. Patient was saturating in the 80s and he came to the hospital. Patient was tachycardic, tachypneic and febrile with T-max 101.4 while in the hospital. 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 Extensive perihilar infiltrate in the right lung and left lung base. 04/02/2017 Patient's breathing status slightly improved otherwise still dyspneic with ambulation. Continued on antibiotics and steroids and breathing treatments. WBC count slightly improved. Pulmonary is following. Another sputum sample was sent. 04/03/2017 Sputum culture and blood culture showed no growth so far. Patient is still dyspneic with ambulation. Continued on current management. No acute overnight issues. 04/04/2017 Patient became short-winded and was in acute respiratory distress in the morning. Patient was placed on BiPAP. Continued on broad-spectrum antibiotics and IV steroids. Patient is requiring high flow oxygen otherwise no fever no chills. Pulmonary is following. Continues to be symptomatic with minimal exertion. Chest x-ray showed increased interstitial infiltrates. 04/05/2017 Patient's breathing is better today. Still requiring high flow nausea cannula at 8 L. Continues to be on broad-spectrum antibiotics. Slight improvement from yesterday otherwise still symptomatic. No fever no chills. 04/06/2017 Patient is still having shortness of breath. Requiring high flow nasal cannula. Patient was also found to have worsening leg swelling. Chest x-ray showed worsening airspace disease. Patient most likely having lung congestion. Patient was started on IV Lasix. Patient did have some improved symptoms later today. No fever no chills. No nausea vomiting or abdominal pain. No chest pain. 04/07/2017 Patient's breathing status is much improved today. Otherwise patient is still on high flow nausea cannula. Chest x-ray showed improved aeration both lungs. No fever no chills no other acute overnight issues. No nausea vomiting abdominal pain no fever no chills. 04/08/2017 Patient still remains on 8 L of oxygen requiring 8 L of oxygen normally uses 4 L at home although clinically looks great. Pulmonology discussed about bronchoscopy and lavage patient is on vancomycin and Zosyn at this time to treat for Pseudomonas and MRSA in the lung. 04/09/2017 No overnight events patient is feeling well but remains on 8 L of oxygen 04/10/2017 Minimal improvement compared to yesterday and patient is presently in 7 L of oxygen All other review of systems negative except the above. current medications reviewed Objective - Vital Signs Vital signs: Vital Signs Temp 96.9 F L 04/10/17 08:40 Pulse 106 H 04/10/17 15:23 Resp 18 04/10/17 08:40 BP 162/75 04/10/17 08:40 Pulse Ox 92 L 04/10/17 08:40 Intake & Output 04/09/17 04/10/17 04/10/17 18:59 06:59 18:59 Intake Total 1060 480 430 Output Total 1900 350 Balance -840 130 430 Weight 83.8 kg Intake: IV 650 250 Piperacillin-Tazobactam 3 150 .375 gm In Dextrose/Water 1 50ml.bag @ 12.5 mls/hr IVPB Q8HR [facility] Rx#: [id number] Vancomycin 1,500 mg In 500 250 Sodium Chloride 0.9% 250 ml @ 125 mls/hr IVPB Q8H [facility] Rx#:[id number] Intake, IV Titration 50 250 Amount Piperacillin-Tazobactam 3 50 .375 gm In Dextrose/Water 1 50ml.bag @ 12.5 mls/hr IVPB Q8HR [facility] Rx#: [id number] Vancomycin 1,750 mg In 250 Sodium Chloride 0.9% 250 ml @ 125 mls/hr IVPB Q8H [facility] Rx#:[id number] Oral 410 180 180 Output: Urine 1900 350 Other: Voiding Method Urinal Urinal # Voids 1 - Exam Patient is lying in the bed comfortably, no acute distress, awake alert and oriented.. HEENT: Normocephalic. Neck is supple. Pupils reactive. Nostrils clear. Oral cavity is moist. Ears reveal no drainage. Neck reveals no JVD, carotid bruits, or thyromegaly. CHEST EXAMINATION: Trachea is central. Symmetrical expansion. Improved air entry bilaterally. Mild expiratory wheezing no crackles crackles CARDIAC: Normal S1, S2 with no gallops. No murmurs ABDOMEN: Soft. Bowel sounds normal. No organomegaly. No abdominal bruits. Extremities: reveal no edema. No clubbing or cyanosis Neurologically awake, alert, oriented x3 with well-coordinated movements. No focal deficits noted Skin: No rash or skin lesions. Psychiatric: Coperative. Nonsuicidal Musculoskeletal: No joint swelling or deformity. Normal range of motion. - Labs CBC & Chem 7: 04/09/17 05:41 04/09/17 05:41 Labs: Abnormal Lab Results - Last 24 Hours (Table) 04/09/17 04/09/17 04/10/17 Range/Units 16:39 20:25 06:22 POC Glucose (mg/dL) 150 H 199 H 151 H (75-99) mg/dL 04/10/17 Range/Units 11:35 POC Glucose (mg/dL) 131 H (75-99) mg/dL Microbiology - Last 24 Hours (Table) 04/09/17 20:06 Gram Stain - Preliminary Sputum Assessment and Plan Plan: Assessment and Plan Assessment: Extensive right perihilar infiltrate with pneumonia. Sputum culture showed MRSA and Pseudomonas recently, patient is on vancomycin and Zosyn to cover above -mentioned organisms respectively levofloxacin was discontinued Sepsis secondary to pneumonia Acute on chronic hypoxic and hypercapnic respiratory failure secondary to pneumonia with COPD exacerbation History of Pseudomonas pneumonia February 2017 COPD with exacerbation COPD severe with an FEV1 of 45% predicted at baseline prostate cancer treated by radiation therapy chronic anxiety/depression hyperlipidemia maintained on Zocor DVT prophylaxis Plan: Patient be continued on antibiotics in the form of vancomycin and Zosyn. Blood cultures negative. Repeat sputum culture showed no growth. Pulmonary is following.. Continue on IV Lasix with improvement in symptoms today. Continue with the steroids and breathing treatments and follow closely. Further conditions based on the clinical course. Prognosis is guarded.
[2017-04-10 17:05] LABS: Glucose,Whole Blood 182 mg/dL (75-99)
[2017-04-10] MEDS: ATORVASTATIN 10 MG TAB PO SCH (21:34)
[2017-04-10] MEDS: ASPIRIN 81 MG PO SCH (21:34)
[2017-04-10] MEDS: CITALOPRAM HYDROBROMIDE 20 MG TAB PO SCH (21:34)
[2017-04-10] MEDS: MELATONIN 3 MG TABLET PO SCH (21:35)
[2017-04-10] MEDS: TAMSULOSIN 0.4 MG CAP.ER.24H PO SCH (21:35)
[2017-04-10 22:10] LABS: Glucose,Whole Blood 200 mg/dL (75-99)
[2017-04-11] MEDS: VANCOMYCIN 1,750 MG in SODIUM CHLORIDE 0.9% 250 ML IVPB SCH ×3 (05:15→20:09)
[2017-04-11 06:10] LABS: Anion Gap 4 mmol/L; Blood Urea Nitrogen 29 mg/dL (9-20); Calcium 7.8 mg/dL (8.4-10.2); Carbon Dioxide 36 mmol/L (22-30); Chloride 96 mmol/L (98-107); Glucose 151 mg/dL (74-99); Potassium 3.8 mmol/L (3.5-5.1); Sodium 136 mmol/L (137-145)
[2017-04-11 06:14] LABS: Glucose,Whole Blood 194 mg/dL (75-99)
[2017-04-11] MEDS: INSULIN ASPART 100 UNIT/ML 1 ML 10 ML VIAL SQ SCH ×4 (06:40→21:39)
[2017-04-11] MEDS: methylPREDNISolone SOD SUCCI 125 MG/2 ML VIAL IV SCH ×2 (06:41→12:24)
[2017-04-11] MEDS: FORMOTEROL FUMARATE 20 MCG/2 ML NEBU INHALATION SCH ×2 (08:17→19:31)
[2017-04-11] MEDS: IPRATROPIUM-ALBUTEROL 3 ML NEB INHALATION SCH ×4 (08:17→19:31)
[2017-04-11] MEDS: BUDESONIDE 1 MG/2 ML NEBU INHALATION SCH ×2 (08:17→19:31)
[2017-04-11] MEDS: NYSTATIN 100,000 UNIT/ML SUSP 500,000 UNIT/5 ML CUP PO SCH ×4 (08:36→20:17)
[2017-04-11] MEDS: busPIRone HCl 5 MG TAB PO SCH ×2 (08:36→20:17)
[2017-04-11] MEDS: HEPARIN SODIUM,PORCINE 5,000 UNIT/ML 1 ML VIAL SQ SCH ×2 (08:37→20:17)
[2017-04-11] MEDS: guaiFENesin-DM 600/30MG 1 EACH TAB.ER.12H PO SCH (08:37)
[2017-04-11] MEDS: FUROSEMIDE 10 MG/ML 4 ML VIAL IV SCH (08:37)
[2017-04-11] MEDS: PIPERACILLIN-TAZOBACTAM 3.375 GM in DEXTROSE/WATER 1 50ML.BAG IVPB SCH ×3 (08:37→23:24)
[2017-04-11 12:04] LABS: Glucose,Whole Blood 131 mg/dL (75-99)
[2017-04-11] MEDS: CALCIUM CARBONATE 500 MG CHEWABLE PO SCH (12:23)
[2017-04-11] MEDS: ASCORBIC ACID 500 MG TAB PO SCH (12:23)
[2017-04-11] MEDS: MULTIVITAMINS, THERA 1 EACH TAB PO SCH (12:23)
--- NOTE | 2017-04-11 14:15 | P.PN ---
Subjective 81-year-old male with a known history of COPD, hypertension and recent Pseudomonas sputum culture with pneumonia came to ER with complaints of worsening shortness of breath for the past 2 days. Patient has been having fever and tiredness and right-sided sharp chest pain to by 10 severity that increases with breathing. Patient did have pneumonia with positive sputum cultures with Pseudomonas and was treated with ciprofloxacin. Patient completed antibiotic course last Saturday and was told to view sputum sample again 2 days lateral. Sputum cultures done on 03/28/2017 showed MRSA and Pseudomonas. Patient does follow with Dr. Dennison as an outpatient. Patient was started on vancomycin and Zosyn at this time. Otherwise patient denied any nausea vomiting or abdominal pain. Patient did have remote history of smoking. Patient was saturating in the 80s and he came to the hospital. Patient was tachycardic, tachypneic and febrile with T-max 101.4 while in the hospital. 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 Extensive perihilar infiltrate in the right lung and left lung base. 04/02/2017 Patient's breathing status slightly improved otherwise still dyspneic with ambulation. Continued on antibiotics and steroids and breathing treatments. WBC count slightly improved. Pulmonary is following. Another sputum sample was sent. 04/03/2017 Sputum culture and blood culture showed no growth so far. Patient is still dyspneic with ambulation. Continued on current management. No acute overnight issues. 04/04/2017 Patient became short-winded and was in acute respiratory distress in the morning. Patient was placed on BiPAP. Continued on broad-spectrum antibiotics and IV steroids. Patient is requiring high flow oxygen otherwise no fever no chills. Pulmonary is following. Continues to be symptomatic with minimal exertion. Chest x-ray showed increased interstitial infiltrates. 04/05/2017 Patient's breathing is better today. Still requiring high flow nausea cannula at 8 L. Continues to be on broad-spectrum antibiotics. Slight improvement from yesterday otherwise still symptomatic. No fever no chills. 04/06/2017 Patient is still having shortness of breath. Requiring high flow nasal cannula. Patient was also found to have worsening leg swelling. Chest x-ray showed worsening airspace disease. Patient most likely having lung congestion. Patient was started on IV Lasix. Patient did have some improved symptoms later today. No fever no chills. No nausea vomiting or abdominal pain. No chest pain. 04/07/2017 Patient's breathing status is much improved today. Otherwise patient is still on high flow nausea cannula. Chest x-ray showed improved aeration both lungs. No fever no chills no other acute overnight issues. No nausea vomiting abdominal pain no fever no chills. 04/08/2017 Patient still remains on 8 L of oxygen requiring 8 L of oxygen normally uses 4 L at home although clinically looks great. Pulmonology discussed about bronchoscopy and lavage patient is on vancomycin and Zosyn at this time to treat for Pseudomonas and MRSA in the lung. 04/09/2017 No overnight events patient is feeling well but remains on 8 L of oxygen 04/10/2017 Minimal improvement compared to yesterday and patient is presently in 7 L of oxygen 04/11/2017 Patient was pretty status improved significantly and presently on 6 L of oxygen patient uses 4 L at home All other review of systems negative except the above. current medications reviewed Objective - Vital Signs Vital signs: Vital Signs Temp 97.3 F L 04/11/17 11:57 Pulse 108 H 04/11/17 12:05 Resp 22 04/11/17 11:57 BP 128/74 04/11/17 11:57 Pulse Ox 91 L 04/11/17 11:57 Intake & Output 04/10/17 04/11/17 04/11/17 18:59 06:59 18:59 Intake Total 790 180 Output Total 950 Balance 790 -770 Weight 83.1 kg Intake: Intake, IV Titration 250 Amount Vancomycin 1,750 mg In 250 Sodium Chloride 0.9% 250 ml @ 125 mls/hr IVPB Q8H [facility] Rx#:[id number] Oral 540 180 Output: Urine 950 Other: Voiding Method Urinal # Voids 1 - Exam Patient is lying in the bed comfortably, no acute distress, awake alert and oriented.. HEENT: Normocephalic. Neck is supple. Pupils reactive. Nostrils clear. Oral cavity is moist. Ears reveal no drainage. Neck reveals no JVD, carotid bruits, or thyromegaly. CHEST EXAMINATION: Trachea is central. Symmetrical expansion. Improved air entry bilaterally. Mild expiratory wheezing no crackles crackles CARDIAC: Normal S1, S2 with no gallops. No murmurs ABDOMEN: Soft. Bowel sounds normal. No organomegaly. No abdominal bruits. Extremities: reveal no edema. No clubbing or cyanosis Neurologically awake, alert, oriented x3 with well-coordinated movements. No focal deficits noted Skin: No rash or skin lesions. Psychiatric: Coperative. Nonsuicidal Musculoskeletal: No joint swelling or deformity. Normal range of motion. - Labs CBC & Chem 7: 04/09/17 05:41 04/11/17 05:22 Labs: Abnormal Lab Results - Last 24 Hours (Table) 04/10/17 04/10/17 04/11/17 Range/Units 16:57 22:01 05:22 Sodium 136 L (137-145) mmol/L Chloride 96 L (98-107) mmol/L Carbon Dioxide 36 H (22-30) mmol/L BUN 29 H (9-20) mg/dL Creatinine 0.60 L (0.66-1.25) mg/dL Glucose 151 H (74-99) mg/dL POC Glucose (mg/dL) 182 H 200 H (75-99) mg/dL Calcium 7.8 L (8.4-10.2) mg/dL 04/11/17 04/11/17 Range/Units 06:07 11:41 Sodium (137-145) mmol/L Chloride (98-107) mmol/L Carbon Dioxide (22-30) mmol/L BUN (9-20) mg/dL Creatinine (0.66-1.25) mg/dL Glucose (74-99) mg/dL POC Glucose (mg/dL) 194 H 131 H (75-99) mg/dL Calcium (8.4-10.2) mg/dL Microbiology - Last 24 Hours (Table) 04/09/17 20:06 Gram Stain - Preliminary Sputum Sputum Culture - Preliminary [place] albicans Pseudomonas spec Assessment and Plan Plan: Assessment and Plan Assessment: Extensive right perihilar infiltrate with pneumonia. Sputum culture showed MRSA and Pseudomonas recently, patient is on vancomycin and Zosyn to cover above -mentioned organisms respectively levofloxacin was discontinued Sepsis secondary to pneumonia Acute on chronic hypoxic and hypercapnic respiratory failure secondary to pneumonia with COPD exacerbation History of Pseudomonas pneumonia February 2017 COPD with exacerbation COPD severe with an FEV1 of 45% predicted at baseline prostate cancer treated by radiation therapy chronic anxiety/depression hyperlipidemia maintained on Zocor DVT prophylaxis Plan: Patient be continued on antibiotics in the form of vancomycin and Zosyn. Blood cultures negative. Repeat sputum culture showed Pseudomonas. Pulmonary is following.. Continue on IV Lasix with improvement in symptoms today. Continue with the steroids and breathing treatments and follow closely. Further conditions based on the clinical course. Prognosis is guarded.
--- NOTE | 2017-04-11 14:56 | P.PN ---
Subjective Progress Note Date: 04/11/17 Principal diagnosis: Acute right midlung pneumonia This is a very pleasant 81-year-old gentleman who follows with Dr. Carolina as his primary care physician. He has a history of prostate cancer treated with radiation therapy, hyperlipidemia, anxiety/depression. He also has a history of chronic obstructive pulmonary disease with a 40 year 2 pack per day smoking history. He did quit back in 1991. He is treated with Advair, Spiriva and albuterol in the outpatient setting. He was here one month ago for COPD exacerbation. His FEV1 value is 45% of predicted. Oxygen dependent. His influenza screen at that time was negative. He was found however to have pseudomonas aeruginosa positive sputum. A follow-up sputum on 03/28/2017 is positive for Pseudomonas along with methicillin resistant staph aureus. He presented here again yesterday to the emergency room with complaints of increasing shortness of breath, cough and congestion. He also had complaints of sharp right-sided chest discomfort. His chest x-ray shows areas of chronic emphysema changes with scattered fibrosis. There is a persistent right midlung lateral infiltrate which was new compared to previous. White count 18.7. He's had a T-max of 101.4. Currently on 5 L/m per nasal cannula. He has been initiated on vancomycin and Levaquin. The patient is seen again today 04/03/2017 in follow-up on the selective care unit. He is currently awake and alert in no acute distress. He is still having dyspnea with minimal conversation and minimal activity. He has been afebrile. Maintaining O2 saturations in the low 90s on 5 L high flow nasal cannula. Slightly tachycardic. Slightly tachypneic. Hemodynamically stable. Blood culture reveals no growth to date. Sputum culture reveals no growth. May need a better specimen. White count 17.4. Hemoglobin 11.1. Creatinine 0.69. He remains on vancomycin and Levaquin. The patient is seen again today 04/04/2017 in follow-up on the selective care unit. He is currently resting in bed. He is awake and alert in no acute distress. He continues with a loose productive cough. He has been slow to progress. He is continued on vancomycin and Levaquin. Follow-up sputum was insufficient. Attempt to obtain a repeat sputum. He is utilizing 55% Ventimask to maintain O2 saturations in the 90s. He has been afebrile. Slightly tachycardia. Blood pressure stable. Follow-up chest x-ray pending. The patient is seen again today 04/05/2017 in follow-up on the selective care unit. He is awake and alert in no acute distress. He is breathing a bit better today as compared to yesterday. We were able to titrate down the FiO2 to 8 L high flow nasal cannula. Yesterday's chest x-ray did show some worsening right lung pneumonia as well as some left lower lung infiltrate. He rested well last night. He was initiated on Zosyn yesterday in addition to the vancomycin and Levaquin. Creatinine 0.70. He remains afebrile. Hemodynamically stable. The patient is seen again today 04/06/2017 in follow-up on the selective care unit. He is currently resting comfortably in bed. He is awake and alert in no acute distress. He was able to titrate down his FiO2 to 6 L last evening however he developed shortness of breath while being up to the bathroom and is currently still on 8 L high flow nasal cannula. He has remained afebrile. Unfortunately he has chest x-ray today continues to reveal worsening airspace disease more so on the right lung. He has also been gradually having increased edema of the upper extremities trace edema lower extremities. He was given Lasix IVP 1 this morning. Creatinine 0.64. Reevaluated today on 04/07/2017, patient has been diuresing significantly, surprisingly clinically the patient is feeling better, chest x-ray showed slight improvement compared the chest x-ray yesterday. Which implies some component of pulmonary edema in addition to his right sided pneumonia. Labs showed relatively normal CBC except hemoglobin 9.6. Basic metabolic profile is normal BUN is 34 creatinine is 0.68, slightly prerenal azotemia noted. I will cut down the furosemide to 20 mg IV push daily instead of 40 mg IV push daily. Patient was reevaluated today on 04/08/2017, remains about the same remains on a high flow nasal cannula at 8 L/m, with marginal saturations. Chest x-ray yesterday showed minimal improvement, and I plan to repeat the chest x-ray tomorrow. Patient is about the same as he was yesterday. But noted to be more dyspneic today compared to yesterday. His basic metabolic profile is normal BUN is 37 creatinine is 0.80 patient remains on Lasix, his bicarb level is 39. Has shortness of breath with any activity, intermittent cough. The patient is seen again today 04/09/2017 in follow-up on the selective care unit. He is awake and alert in no acute distress. He is finally doing a little better today. He states he is breathing somewhat easier. He is still having issues with oxygenation remains on 8 L high flow nasal cannula. His O2 sat is currently 90%. His chest x-ray shows continued infiltrates more so on the right lung. His cough is nonproductive. White count 12.3. Hemoglobin 10.2. Creatinine 0.72. Bicarb 35. He remains on 20 mg of IV Lasix daily. The patient is seen again today 04/10/2017 in follow-up on the selective care unit. He remains awake and alert in no acute distress. He is currently sitting up in bed. He states he is breathing easier today as compared to yesterday. His current FiO2 is down to 7 L while maintaining O2 saturations greater than 88%. Prelim sputum culture reveals few gram-positive cocci. He remains on vancomycin, Zosyn and Levaquin. No fever. On 04/11/2017 patient seen in follow-up. He denies any acute distress, although becomes dyspneic with ambulation and exertion. He is tolerating leading to the bathroom, well, requires frequent periods of rest. Currently on FiO2 of 6 L per nasal cannula with O2 sat 91%. He is remains afebrile, hemodynamically stable. Lung sounds are generally diminished, no rhonchi, no wheezes or rales noted. His sputum culture was positive for pseudomonas species and [place] albicans. He denies any fever, chills, or chest pain. He remains on the combination of Zosyn and vancomycin. Levaquin has been discontinued. His vital signs are stable. He remains on IV Lasix at 20 mg daily. His chest x-ray from 04/09/2017 shows improvement in the appearance of multifocal infiltrates right greater than the left and the background of COPD compared to his admission chest x-ray. Objective - Vital Signs Vital signs: Vital Signs Temp 97.3 F L 04/11/17 11:57 Pulse 108 H 04/11/17 12:05 Resp 22 04/11/17 11:57 BP 128/74 04/11/17 11:57 Pulse Ox 91 L 04/11/17 11:57 Intake & Output 04/10/17 04/11/17 04/11/17 18:59 06:59 18:59 Intake Total 790 180 Output Total 950 Balance 790 -770 Weight 83.1 kg Intake: Intake, IV Titration 250 Amount Vancomycin 1,750 mg In 250 Sodium Chloride 0.9% 250 ml @ 125 mls/hr IVPB Q8H [facility] Rx#:[id number] Oral 540 180 Output: Urine 950 Other: Voiding Method Urinal # Voids 1 - Exam GENERAL EXAM: Alert, comfortable. Improving clinically. No acute distress. HEAD: Normocephalic. EYES: Normal reaction of pupils, equal size. NOSE: Clear with pink turbinates. THROAT: No erythema or exudates. NECK: No masses, no JVD. CHEST: No chest wall deformity. LUNGS: Diminished air entry bilaterally, no rhonchi, no wheezes noted. CVS: S1 and S2 normal with no audible murmur, regular rhythm. ABDOMEN: No hepatosplenomegaly, normal bowel sounds, no guarding or rigidity. SPINE: No scoliosis or deformity SKIN: No rashes. Areas of ecchymosis. CENTRAL NERVOUS SYSTEM: No focal deficits, tone is normal in all 4 extremities. EXTREMITIES: There trace peripheral edema. No clubbing, no cyanosis. Peripheral pulses are intact. - Labs CBC & Chem 7: 04/09/17 05:41 04/11/17 05:22 Labs: Abnormal Lab Results - Last 24 Hours (Table) 04/10/17 04/10/17 04/11/17 Range/Units 16:57 22:01 05:22 Sodium 136 L (137-145) mmol/L Chloride 96 L (98-107) mmol/L Carbon Dioxide 36 H (22-30) mmol/L BUN 29 H (9-20) mg/dL Creatinine 0.60 L (0.66-1.25) mg/dL Glucose 151 H (74-99) mg/dL POC Glucose (mg/dL) 182 H 200 H (75-99) mg/dL Calcium 7.8 L (8.4-10.2) mg/dL 04/11/17 04/11/17 Range/Units 06:07 11:41 Sodium (137-145) mmol/L Chloride (98-107) mmol/L Carbon Dioxide (22-30) mmol/L BUN (9-20) mg/dL Creatinine (0.66-1.25) mg/dL Glucose (74-99) mg/dL POC Glucose (mg/dL) 194 H 131 H (75-99) mg/dL Calcium (8.4-10.2) mg/dL Microbiology - Last 24 Hours (Table) 04/09/17 20:06 Gram Stain - Preliminary Sputum Sputum Culture - Preliminary [place] albicans Pseudomonas spec Assessment and Plan Plan: Assessment: #1 Acute right mid lung pneumonia with recent sputum cultures positive for Pseudomonas aeruginosa and methicillin-resistant Staphylococcus aureus. Continues on vancomycin and Zosyn, Levaquin has been discontinued. Influenza screen negative. Sputum culture from 04/09/2017 shows Pseudomonas species and [place] albicans #2 Acute febrile illness secondary to above. Improved. #3 Acute on chronic hypoxic respiratory failure secondary to above. #4 Acute exacerbation of chronic obstructive pulmonary disease secondary to above. Treated with Advair, Spiriva and albuterol in the outpatient setting. #5 History of prostate cancer treated with radiation therapy. Currently on Flomax. #7 History of anxiety/depression. Currently on BuSpar and Celexa. #8 Hyperlipidemia. Currently on simvastatin. #9 40 year 2 pack per day smoking history however quit back in 1991. Plan: Patient continues to improve, is able to tolerate ambulation on portable oxygen , tolerates it reasonably well with frequent periods of rest. Denies any fever , chills or chest pain. Weaning FiO2, continues on spirometry, continue vancomycin and Zosyn. Continue flutter valve. Nebulized treatments. No wheezing or rhonchi auscultated. We will decrease the IV Solu-Medrol to 40 mg every 12 hours. Continue rest of the medical treatments. We'll repeat a chest x -ray in the next 24-48 hours I performed a history & physical examination of the patient and discussed their management with my nurse practitioner, Loulou Cross. I reviewed the nurse practitioner's note and agree with the documented findings and plan of care. Lung sounds are diminished, no rhonchi or wheezes noted. The findings and the impression was discussed with the patient. I attest to the documentation by the nurse practitioner. Time with Patient: Less than 30
[2017-04-11 17:03] LABS: Glucose,Whole Blood 165 mg/dL (75-99)
[2017-04-11] MEDS: ASPIRIN 81 MG PO SCH (20:16)
[2017-04-11] MEDS: ATORVASTATIN 10 MG TAB PO SCH (20:16)
[2017-04-11] MEDS: CITALOPRAM HYDROBROMIDE 20 MG TAB PO SCH (20:17)
[2017-04-11] MEDS: methylPREDNISolone SOD SUCCI 40 MG/ML 1 ML VIAL IV SCH (20:17)
[2017-04-11] MEDS: TAMSULOSIN 0.4 MG CAP.ER.24H PO SCH (20:17)
[2017-04-11] MEDS: MELATONIN 3 MG TABLET PO SCH (20:17)
[2017-04-11 21:02] LABS: Glucose,Whole Blood 178 mg/dL (75-99)
[2017-04-12] MEDS: VANCOMYCIN 1,750 MG in SODIUM CHLORIDE 0.9% 250 ML IVPB SCH ×2 (05:13→11:44)
[2017-04-12 05:49] LABS: Glucose,Whole Blood 132 mg/dL (75-99)
[2017-04-12] MEDS: INSULIN ASPART 100 UNIT/ML 1 ML 10 ML VIAL SQ SCH ×2 (05:57→11:50)
[2017-04-12 06:42] LABS: Anion Gap 3 mmol/L; Blood Urea Nitrogen 31 mg/dL (9-20); Calcium 7.6 mg/dL (8.4-10.2); Carbon Dioxide 36 mmol/L (22-30); Chloride 100 mmol/L (98-107); Glucose 128 mg/dL (74-99); Potassium 3.8 mmol/L (3.5-5.1); Sodium 139 mmol/L (137-145)
[2017-04-12] MEDS: guaiFENesin-DM 600/30MG 1 EACH TAB.ER.12H PO SCH (08:09)
[2017-04-12] MEDS: NYSTATIN 100,000 UNIT/ML SUSP 500,000 UNIT/5 ML CUP PO SCH (08:09)
[2017-04-12] MEDS: methylPREDNISolone SOD SUCCI 40 MG/ML 1 ML VIAL IV SCH (08:09)
[2017-04-12] MEDS: PIPERACILLIN-TAZOBACTAM 3.375 GM in DEXTROSE/WATER 1 50ML.BAG IVPB SCH (08:09)
[2017-04-12] MEDS: FUROSEMIDE 10 MG/ML 4 ML VIAL IV SCH (08:09)
[2017-04-12] MEDS: HEPARIN SODIUM,PORCINE 5,000 UNIT/ML 1 ML VIAL SQ SCH (08:09)
[2017-04-12] MEDS: busPIRone HCl 5 MG TAB PO SCH (08:09)
--- NOTE | 2017-04-12 08:18 | XR ---
EXAMINATION TYPE: XR chest 2V DATE OF EXAM: 04/12/2017 COMPARISON: 04/09/2017 HISTORY: Right-sided pneumonia. Follow-up exams. TECHNIQUE: Frontal and lateral views of the chest are obtained. FINDINGS: Reticular opacity within the right midlung peripherally and patchy opacity at the left caro g base have both improved in the interim. There is some right basilar atelectasis with tenting of the hemidiaphragm peripherally. Pulmonary per inflation relates to underlying COPD with elongation of th e cardia mediastinal silhouette that is not enlarged. Osseous structures appear intact. IMPRESSION: Improving multifocal pneumonia, right greater than left, superimposed upon a background of COPD.
[2017-04-12] MEDS: IPRATROPIUM-ALBUTEROL 3 ML NEB INHALATION SCH ×3 (08:41→15:56)
[2017-04-12] MEDS: FORMOTEROL FUMARATE 20 MCG/2 ML NEBU INHALATION SCH (08:41)
[2017-04-12] MEDS: BUDESONIDE 1 MG/2 ML NEBU INHALATION SCH (08:42)
[2017-04-12 09:17] VITALS: BP 159/77; RESP 18; TEMP 98.2
[2017-04-12] MEDS ORDERED: VANCOMYCIN TROUGH DUE 1 EACH MISC MISCELLANE ONE (11:00)
--- NOTE | 2017-04-12 11:44 | P.PN ---
Subjective Progress Note Date: 04/12/17 Principal diagnosis: Acute right mid lung pneumonia. This is a very pleasant 81-year-old gentleman who follows with Dr. Carolina as his primary care physician. He has a history of prostate cancer treated with radiation therapy, hyperlipidemia, anxiety/depression. He also has a history of chronic obstructive pulmonary disease with a 40 year 2 pack per day smoking history. He did quit back in 1991. He is treated with Advair, Spiriva and albuterol in the outpatient setting. He was here one month ago for COPD exacerbation. His FEV1 value is 45% of predicted. Oxygen dependent. His influenza screen at that time was negative. He was found however to have pseudomonas aeruginosa positive sputum. A follow-up sputum on 03/28/2017 is positive for Pseudomonas along with methicillin resistant staph aureus. He presented here again yesterday to the emergency room with complaints of increasing shortness of breath, cough and congestion. He also had complaints of sharp right-sided chest discomfort. His chest x-ray shows areas of chronic emphysema changes with scattered fibrosis. There is a persistent right midlung lateral infiltrate which was new compared to previous. White count 18.7. He's had a T-max of 101.4. Currently on 5 L/m per nasal cannula. He has been initiated on vancomycin and Levaquin. The patient is seen again today 04/03/2017 in follow-up on the selective care unit. He is currently awake and alert in no acute distress. He is still having dyspnea with minimal conversation and minimal activity. He has been afebrile. Maintaining O2 saturations in the low 90s on 5 L high flow nasal cannula. Slightly tachycardic. Slightly tachypneic. Hemodynamically stable. Blood culture reveals no growth to date. Sputum culture reveals no growth. May need a better specimen. White count 17.4. Hemoglobin 11.1. Creatinine 0.69. He remains on vancomycin and Levaquin. The patient is seen again today 04/04/2017 in follow-up on the selective care unit. He is currently resting in bed. He is awake and alert in no acute distress. He continues with a loose productive cough. He has been slow to progress. He is continued on vancomycin and Levaquin. Follow-up sputum was insufficient. Attempt to obtain a repeat sputum. He is utilizing 55% Ventimask to maintain O2 saturations in the 90s. He has been afebrile. Slightly tachycardia. Blood pressure stable. Follow-up chest x-ray pending. The patient is seen again today 04/05/2017 in follow-up on the selective care unit. He is awake and alert in no acute distress. He is breathing a bit better today as compared to yesterday. We were able to titrate down the FiO2 to 8 L high flow nasal cannula. Yesterday's chest x-ray did show some worsening right lung pneumonia as well as some left lower lung infiltrate. He rested well last night. He was initiated on Zosyn yesterday in addition to the vancomycin and Levaquin. Creatinine 0.70. He remains afebrile. Hemodynamically stable. The patient is seen again today 04/06/2017 in follow-up on the selective care unit. He is currently resting comfortably in bed. He is awake and alert in no acute distress. He was able to titrate down his FiO2 to 6 L last evening however he developed shortness of breath while being up to the bathroom and is currently still on 8 L high flow nasal cannula. He has remained afebrile. Unfortunately he has chest x-ray today continues to reveal worsening airspace disease more so on the right lung. He has also been gradually having increased edema of the upper extremities trace edema lower extremities. He was given Lasix IVP 1 this morning. Creatinine 0.64. Reevaluated today on 04/07/2017, patient has been diuresing significantly, surprisingly clinically the patient is feeling better, chest x-ray showed slight improvement compared the chest x-ray yesterday. Which implies some component of pulmonary edema in addition to his right sided pneumonia. Labs showed relatively normal CBC except hemoglobin 9.6. Basic metabolic profile is normal BUN is 34 creatinine is 0.68, slightly prerenal azotemia noted. I will cut down the furosemide to 20 mg IV push daily instead of 40 mg IV push daily. Patient was reevaluated today on 04/08/2017, remains about the same remains on a high flow nasal cannula at 8 L/m, with marginal saturations. Chest x-ray yesterday showed minimal improvement, and I plan to repeat the chest x-ray tomorrow. Patient is about the same as he was yesterday. But noted to be more dyspneic today compared to yesterday. His basic metabolic profile is normal BUN is 37 creatinine is 0.80 patient remains on Lasix, his bicarb level is 39. Has shortness of breath with any activity, intermittent cough. The patient is seen again today 04/09/2017 in follow-up on the selective care unit. He is awake and alert in no acute distress. He is finally doing a little better today. He states he is breathing somewhat easier. He is still having issues with oxygenation remains on 8 L high flow nasal cannula. His O2 sat is currently 90%. His chest x-ray shows continued infiltrates more so on the right lung. His cough is nonproductive. White count 12.3. Hemoglobin 10.2. Creatinine 0.72. Bicarb 35. He remains on 20 mg of IV Lasix daily. The patient is seen again today 04/10/2017 in follow-up on the selective care unit. He remains awake and alert in no acute distress. He is currently sitting up in bed. He states he is breathing easier today as compared to yesterday. His current FiO2 is down to 7 L while maintaining O2 saturations greater than 88%. Prelim sputum culture reveals few gram-positive cocci. He remains on vancomycin, Zosyn and Levaquin. No fever. On 04/11/2017 patient seen in follow-up. He denies any acute distress, although becomes dyspneic with ambulation and exertion. He is tolerating leading to the bathroom, well, requires frequent periods of rest. Currently on FiO2 of 6 L per nasal cannula with O2 sat 91%. He is remains afebrile, hemodynamically stable. Lung sounds are generally diminished, no rhonchi, no wheezes or rales noted. His sputum culture was positive for pseudomonas species and [place] albicans. He denies any fever, chills, or chest pain. He remains on the combination of Zosyn and vancomycin. Levaquin has been discontinued. His vital signs are stable. He remains on IV Lasix at 20 mg daily. His chest x-ray from 04/09/2017 shows improvement in the appearance of multifocal infiltrates right greater than the left and the background of COPD compared to his admission chest x-ray. The patient is seen again today 04/12/2017 in follow-up in the selective care unit. He is currently sitting up in a chair at the bedside. He is awake and alert in no acute distress. We've been able to titrate down the FiO2 to 4 L/m per nasal cannula. He is feeling nearly back to his baseline. His sputum culture did show recurrent pseudomonas aeruginosa. He is currently on Zosyn and vancomycin. Chest x-ray shows improvement in the multifocal pneumonia right greater than left superimposed on his COPD. Objective - Vital Signs Vital signs: Vital Signs Temp 98.2 F 04/12/17 08:00 Pulse 100 04/12/17 09:06 Resp 18 04/12/17 08:00 BP 159/77 04/12/17 08:00 Pulse Ox 97 04/12/17 08:40 Intake & Output 04/11/17 04/12/17 04/12/17 18:59 06:59 18:59 Intake Total 596 137.5 200 Output Total 950 375 Balance -354 137.5 -175 Weight 83.1 kg Intake: IV 12.5 Piperacillin-Tazobactam 3 12.5 .375 gm In Dextrose/Water 1 50ml.bag @ 12.5 mls/hr IVPB Q8HR [facility] Rx#: [id number] Intake, IV Titration 125 Amount Vancomycin 1,750 mg In 125 Sodium Chloride 0.9% 250 ml @ 125 mls/hr IVPB Q8H [facility] Rx#:[id number] Oral 596 200 Output: Urine 950 375 Other: Voiding Method Urinal # Voids 1 - Exam GENERAL EXAM: Alert, comfortable. Improving clinically. No acute distress. HEAD: Normocephalic. EYES: Normal reaction of pupils, equal size. NOSE: Clear with pink turbinates. THROAT: No erythema or exudates. NECK: No masses, no JVD. CHEST: No chest wall deformity. LUNGS: Equal air entry with scattered rhonchi more so on the right, crackles in the posterior bases. CVS: S1 and S2 normal with no audible murmur, regular rhythm. ABDOMEN: No hepatosplenomegaly, normal bowel sounds, no guarding or rigidity. SPINE: No scoliosis or deformity SKIN: No rashes. Areas of ecchymosis. CENTRAL NERVOUS SYSTEM: No focal deficits, tone is normal in all 4 extremities. EXTREMITIES: There trace peripheral edema. No clubbing, no cyanosis. Peripheral pulses are intact. - Labs CBC & Chem 7: 04/09/17 05:41 04/12/17 06:15 Labs: Abnormal Lab Results - Last 24 Hours (Table) 04/11/17 04/11/17 04/11/17 Range/Units 11:41 16:57 21:01 Carbon Dioxide (22-30) mmol/L BUN (9-20) mg/dL Glucose (74-99) mg/dL POC Glucose (mg/dL) 131 H 165 H 178 H (75-99) mg/dL Calcium (8.4-10.2) mg/dL 04/12/17 04/12/17 Range/Units 05:48 06:15 Carbon Dioxide 36 H (22-30) mmol/L BUN 31 H (9-20) mg/dL Glucose 128 H (74-99) mg/dL POC Glucose (mg/dL) 132 H (75-99) mg/dL Calcium 7.6 L (8.4-10.2) mg/dL Microbiology - Last 24 Hours (Table) 04/09/17 20:06 Gram Stain - Preliminary Sputum Sputum Culture - Preliminary [place] albicans Pseudomonas aeruginosa Assessment and Plan Assessment: Impression: #1 Acute right mid lung pneumonia with recent sputum cultures positive for Pseudomonas aeruginosa and methicillin-resistant Staphylococcus aureus. Initiated on vancomycin and Levaquin. Zosyn has also been added. Influenza screen negative. Follow-up sputum sample reveals pseudomonas aeruginosa. Today 's chest x-ray shows improvement. #2 Acute febrile illness secondary to above. Improved. #3 Acute on chronic hypoxic respiratory failure secondary to above. Recovered. #4 Acute exacerbation of chronic obstructive pulmonary disease secondary to above. Treated with Advair, Spiriva and albuterol in the outpatient setting. #5 History of prostate cancer treated with radiation therapy. Currently on Flomax. #7 History of anxiety/depression. Currently on BuSpar and Celexa. #8 Hyperlipidemia. Currently on simvastatin. #9 40 year 2 pack per day smoking history however quit back in 1991. Plan: The patient was seen and evaluated by Dr. Warren. He is breathing easier today. His FiO2 is back down to his baseline at 4 L/m per nasal cannula. Chest x- ray shows improvement. Sputum culture positive for Pseudomonas. We'll continue with Zosyn. We'll continue his treatment including IV Solu-Medrol, Pulmicort and Perforomist, DuoNeb inhalations. He is on heparin for DVT prophylaxis. Lasix daily. Continue flutter valve. Continue incentive spirometer. Increase his activity as tolerated. We'll continue to follow and make further recommendations based on his clinical status. I, the cosigning physician, performed a history & physical examination of the patient. Lungs sounds with scattered rhonchi more so on the right mid lung. Crackles in the posterior bases. Maintaining O2 saturations in the 90s on 4 L/ m nasal cannula. I discussed the assessment and plan of care with my nurse practitioner, Ce Tan. I attest to the above note as dictated by her.
[2017-04-12 11:46] LABS: Glucose,Whole Blood 132 mg/dL (75-99)
[2017-04-12 12:00] VITALS: PULSE 100
--- NOTE | 2017-04-12 12:18 | P.DS ---
Providers Date of admission: 04/01/17 12:44 Attending physician: Joanna Yu Consults: 04/01/17 13:11 Consult Physician Routine Consulting Provider: Charleen Dennison Consult Reason/Comments: Right lower lobe pneumonia, MRSA, COPD exacerbation Do you want consulting provider notified?: Yes Primary care physician: Lily [facility] Hospital Course: 81-year-old male with a known history of COPD, hypertension and recent Pseudomonas sputum culture with pneumonia came to ER with complaints of worsening shortness of breath for the past 2 days. Patient has been having fever and tiredness and right-sided sharp chest pain to by 10 severity that increases with breathing. Patient did have pneumonia with positive sputum cultures with Pseudomonas and was treated with ciprofloxacin. Patient completed antibiotic course last Saturday and was told to view sputum sample again 2 days lateral. Sputum cultures done on 03/28/2017 showed MRSA and Pseudomonas. Patient does follow with Dr. Dennison as an outpatient. Patient was started on vancomycin and Zosyn at this time. Otherwise patient denied any nausea vomiting or abdominal pain. Patient did have remote history of smoking. Patient was saturating in the 80s and he came to the hospital. Patient was tachycardic, tachypneic and febrile with T-max 101.4 while in the hospital. 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 Extensive perihilar infiltrate in the right lung and left lung base. 04/02/2017 Patient's breathing status slightly improved otherwise still dyspneic with ambulation. Continued on antibiotics and steroids and breathing treatments. WBC count slightly improved. Pulmonary is following. Another sputum sample was sent. 04/03/2017 Sputum culture and blood culture showed no growth so far. Patient is still dyspneic with ambulation. Continued on current management. No acute overnight issues. 04/04/2017 Patient became short-winded and was in acute respiratory distress in the morning. Patient was placed on BiPAP. Continued on broad-spectrum antibiotics and IV steroids. Patient is requiring high flow oxygen otherwise no fever no chills. Pulmonary is following. Continues to be symptomatic with minimal exertion. Chest x-ray showed increased interstitial infiltrates. 04/05/2017 Patient's breathing is better today. Still requiring high flow nausea cannula at 8 L. Continues to be on broad-spectrum antibiotics. Slight improvement from yesterday otherwise still symptomatic. No fever no chills. 04/06/2017 Patient is still having shortness of breath. Requiring high flow nasal cannula. Patient was also found to have worsening leg swelling. Chest x-ray showed worsening airspace disease. Patient most likely having lung congestion. Patient was started on IV Lasix. Patient did have some improved symptoms later today. No fever no chills. No nausea vomiting or abdominal pain. No chest pain. 04/07/2017 Patient's breathing status is much improved today. Otherwise patient is still on high flow nausea cannula. Chest x-ray showed improved aeration both lungs. No fever no chills no other acute overnight issues. No nausea vomiting abdominal pain no fever no chills. 04/08/2017 Patient still remains on 8 L of oxygen requiring 8 L of oxygen normally uses 4 L at home although clinically looks great. Pulmonology discussed about bronchoscopy and lavage patient is on vancomycin and Zosyn at this time to treat for Pseudomonas and MRSA in the lung. 04/09/2017 No overnight events patient is feeling well but remains on 8 L of oxygen 04/10/2017 Minimal improvement compared to yesterday and patient is presently in 7 L of oxygen 04/11/2017 Patient was pretty status improved significantly and presently on 6 L of oxygen patient uses 4 L at home 04/12/2017 Patient is doing much better his is pretty status is at his baseline and Pseudomonas in the sputum for the patient is sensitive to ciprofloxacin patient will be discharged on ciprofloxacin for about a week's and 50 mg along with weaning dose of steroids. PHYSICAL EXAMINATION: GENERAL: The patient is alert and oriented x3, not in any acute distress. Well developed, well nourished. HEENT: Pupils are round and equally reacting to light. EOMI. No scleral icterus. No conjunctival pallor. Normocephalic, atraumatic. No pharyngeal erythema. No thyromegaly. CARDIOVASCULAR: S1 and S2 present. No murmurs, rubs, or gallops. PULMONARY: Chest is clear to auscultation, no wheezing or crackles. ABDOMEN: Soft, nontender, nondistended, normoactive bowel sounds. No palpable organomegaly. MUSCULOSKELETAL: No joint swelling or deformity. EXTREMITIES: No cyanosis, clubbing, or pedal edema. NEUROLOGICAL: Gross neurological examination did not reveal any focal deficits. SKIN: No rashes. Assessment and Plan Assessment: Extensive right perihilar infiltrate with pneumonia. Sputum culture showed MRSA and Pseudomonas recently, patient's rhythm is negative for MRSA now is only positive for Pseudomonas sensitive to ciprofloxacin patient will be discharged on ciprofloxacin. 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% predicted at baseline prostate cancer treated by radiation therapy chronic anxiety/depression hyperlipidemia maintained on Zocor DVT prophylaxis Patient Condition at Discharge: Stable Plan - Discharge Summary Discharge Rx Participant: No New Discharge Prescriptions: New Ciprofloxacin HCl [Cipro] 750 mg PO BID #15 tablet predniSONE 10 mg PO DAILY #30 tab No Action Tamsulosin [Flomax] 0.4 mg PO HS Citalopram Hydrobromide [CeleXA] 40 mg PO HS Aspirin 81 mg PO HS Fluticasone/Salmeterol [Advair 500-50 Diskus] 1 puff INHALATION RT-BID Tiotropium [place] [Spiriva] 1 cap INHALATION RT-DAILY Simvastatin [Zocor] 10 mg PO HS Multivit-Mins/Iron/Folic/Lycop [Centrum Men's Tablet] 1 tab PO DAILY guaiFENesin-DM 600/30MG [Mucinex Dm] 1 tab PO DAILY Ascorbic Acid [Vitamin C] 500 mg PO DAILY Melatonin 3 mg PO HS busPIRone HCl [Buspar] 5 mg PO BID Calcium Carbonate [Calcium] 600 mg PO DAILY predniSONE 10 mg PO DAILY #0 Albuterol Nebulized [Ventolin Nebulized] 2.5 mg INHALATION RT-QID Discharge Medication List Aspirin 81 mg PO HS 06/02/14 [History] Citalopram Hydrobromide [CeleXA] 40 mg PO HS 06/02/14 [History] Fluticasone/Salmeterol [Advair 500-50 Diskus] 1 puff INHALATION RT-BID 06/02/14 [History] Tamsulosin [Flomax] 0.4 mg PO HS 06/02/14 [History] Tiotropium [place] [Spiriva] 1 cap INHALATION RT-DAILY 06/02/14 [History] Simvastatin [Zocor] 10 mg PO HS 08/27/14 [History] Multivit-Mins/Iron/Folic/Lycop [Centrum Men's Tablet] 1 tab PO DAILY 06/19/15 [ History] Ascorbic Acid [Vitamin C] 500 mg PO DAILY 02/13/16 [History] guaiFENesin-DM 600/30MG [Mucinex Dm] 1 tab PO DAILY 02/13/16 [History] Calcium Carbonate [Calcium] 600 mg PO DAILY 02/24/17 [History] Melatonin 3 mg PO HS 02/24/17 [History] busPIRone HCl [Buspar] 5 mg PO BID 02/24/17 [History] predniSONE 10 mg PO DAILY #0 02/26/17 [Rx] Albuterol Nebulized [Ventolin Nebulized] 2.5 mg INHALATION RT-QID 04/01/17 [ History] Ciprofloxacin HCl [Cipro] 750 mg PO BID #15 tablet 04/12/17 [Rx] predniSONE 10 mg PO DAILY #30 tab 04/12/17 [Rx] Follow up Appointment(s)/Referral(s): Lily Carolina MD [Primary Care Provider] - 3 Days Discharge Disposition: HOME WITH HOME HEALTH SERVICES
[2017-04-12] MEDS: ASCORBIC ACID 500 MG TAB PO SCH (12:25)
[2017-04-12] MEDS: CALCIUM CARBONATE 500 MG CHEWABLE PO SCH (12:25)
[2017-04-12] MEDS: MULTIVITAMINS, THERA 1 EACH TAB PO SCH (12:25)
[2017-04-12] MEDS ORDERED: VANCOMYCIN 1,750 MG in SODIUM CHLORIDE 0.9% 250 ML IVPB SCH (20:00)
== END 2017-04-12 16:13 | disposition home or self-care (01) | DRG 871 ==
LOC: EC 09:41 → 6SEL 12:44
PROVIDERS: ADMIT Hospitalist; ATTEND Hospitalist
DX: A41.52 Sepsis due to Pseudomonas (principal); J15.1 Pneumonia due to Pseudomonas; J96.21 Acute and chronic respiratory failure with hypoxia; J44.0 Chronic obstructive pulmonary disease with (acute) lower respiratory infection; E86.0 Dehydration; Z99.81 Dependence on supplemental oxygen; D64.9 Anemia, unspecified; J96.22 Acute and chronic respiratory failure with hypercapnia; J44.1 Chronic obstructive pulmonary disease with (acute) exacerbation; E78.5 Hyperlipidemia, unspecified; I10 Essential (primary) hypertension; M50.30 Other cervical disc degeneration, unspecified cervical region; F41.9 Anxiety disorder, unspecified; F32.9 Major depressive disorder, single episode, unspecified; Z79.82 Long term (current) use of aspirin; Z79.51 Long term (current) use of inhaled steroids; Z79.52 Long term (current) use of systemic steroids; Z79.899 Other long term (current) drug therapy; Z87.891 Personal history of nicotine dependence; Z92.3 Personal history of irradiation; Z86.14 Personal history of Methicillin resistant Staphylococcus aureus infection; Z85.46 Personal history of malignant neoplasm of prostate; Z85.828 Personal history of other malignant neoplasm of skin
CPT/HCPCS: 36415; 71045; 71046; 80048; 80053; 80202; 82550; 82553; 83036; 83735; 83880; 84484; 85025; 85027; 85610; 85730; 87040; 87070; 87077; 87186; 87205; 87502; 93005; 94640; 94667; 94760; 96361; 96365; 96366; 96375; 99291

== ENCOUNTER 2017-04-24 11:35 | Inpatient (IN) | payer MEDICARE, OTHER ==
[2017-04-24] MEDS ORDERED: methylPREDNISolone SOD SUCCI 125 MG/2 ML VIAL IV STA (11:38)
[2017-04-24] MEDS ORDERED: MAGNESIUM SULFATE-D5W PMX 1 GM in DEXTROSE/WATER 1 100ML.BAG IVPB ONE (11:55)
--- NOTE | 2017-04-24 12:15 | ED ---
SOB HPI - General Chief Complaint: Shortness of Breath Stated Complaint: DIff Breathing Time Seen by Provider: 04/24/17 11:35 Source: patient, EMS, RN notes reviewed Mode of arrival: EMS Limitations: no limitations - History of Present Illness Initial Comments: This 81-year-old male with a history of COPD who presents by EMS with complaints of shortness of breath this started about 2 hours prior to admission. He normally is on 2 L of oxygen at home his saturation was 8586% after was increased there was still no improvement at the time EMS was summoned. Patient was given a nebulizer treatment in route this did bring his pulse ox up to 96-97 he feels much improved. He denies any overt fevers chills nausea vomiting sweats or phlegm production. No chest pain reported. He has a history of COPD. He was found have a slightly elevated temperature upon arrival. MD Complaint: shortness of breath - Related Data Home Medications Medication Instructions Recorded Confirmed Aspirin 81 mg PO HS 06/02/14 04/24/17 Fluticasone/Salmeterol [Advair 1 puff INHALATION RT-BID 06/02/14 04/24/17 500-50 Diskus] Tamsulosin [Flomax] 0.4 mg PO HS 06/02/14 04/24/17 Tiotropium [place] [Spiriva] 1 cap INHALATION RT-DAILY 06/02/14 04/24/17 Simvastatin [Zocor] 10 mg PO HS 08/27/14 04/24/17 guaiFENesin-DM 600/30MG [Mucinex 1 tab PO DAILY 02/13/16 04/24/17 Dm] Calcium Carbonate [Calcium] 600 mg PO DAILY 02/24/17 04/24/17 Melatonin 3 mg PO HS 02/24/17 04/24/17 busPIRone HCl [Buspar] 5 mg PO BID 02/24/17 04/24/17 Albuterol Nebulized [Ventolin 2.5 mg INHALATION RT-QID 04/01/17 04/24/17 Nebulized] Ciprofloxacin HCl [Cipro] 500 mg PO Q12HR 04/24/17 04/24/17 Citalopram Hydrobromide [CeleXA] 40 mg PO HS 04/24/17 04/24/17 Furosemide [Lasix] 40 mg PO DAILY 04/24/17 04/24/17 Multivit-Min/FA/Lycopen/Lutein 1 tab PO DAILY 04/24/17 04/24/17 [Centrum Silver Tablet] Nystatin 100,000 Unit/ml Susp 4 ml PO QID 04/24/17 04/24/17 [Mycostatin Oral Susp] Previous Rx's Medication Instructions Recorded predniSONE 10 mg PO DAILY #30 tab 04/12/17 Allergies Allergy/AdvReac Type Severity Reaction Status Date / Time No Known Allergies Allergy Verified 04/24/17 12:16 Review of Systems ROS Statement: Those systems with pertinent positive or pertinent negative responses have been documented in the HPI. ROS Other: All systems not noted in ROS Statement are negative. Past Medical History Past Medical History: Cancer, COPD, Hyperlipidemia, Pneumonia, Prostate Disorder Additional Past Medical History / Comment(s): Pt recently admitted on 02/23/17 with bilateral pneumonia. Other hx: COPD, pneumonia with sepsis, 2007 prostate cancer treated by radiation therapy, skin cancer with removal, normocytic anemia, cervical DDD. 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 Past Anesthesia/Blood Transfusion Reactions: No Reported Reaction Past Psychological History: Anxiety, Depression Smoking Status: Former smoker Past Alcohol Use History: None Reported Past Drug Use History: None Reported - Past Family History Mother Family Medical History: No Reported History Father Family Medical History: Cancer Additional Family Medical History / Comment(s): spine CA which spread to bone CA General Exam - General Exam Comments Initial Comments: This is a well-developed well-nourished awake alert oriented 3 male Limitations: no limitations General appearance: alert, anxious Head exam: Present: atraumatic, normocephalic, normal inspection Eye exam: Present: normal appearance, PERRL, EOMI. Absent: scleral icterus, conjunctival injection, periorbital swelling ENT exam: Present: normal exam, mucous membranes moist Neck exam: Present: normal inspection. Absent: tenderness, meningismus, lymphadenopathy Respiratory exam: Present: decreased breath sounds, other (Somewhat tachypnic). Absent: respiratory distress, wheezes, rales, rhonchi, stridor Cardiovascular Exam: Present: normal rhythm, tachycardia, normal heart sounds. Absent: systolic murmur, diastolic murmur, rubs, gallop, clicks GI/Abdominal exam: Present: soft, normal bowel sounds. Absent: distended, tenderness, guarding, rebound, rigid Extremities exam: Present: normal inspection, full ROM, normal capillary refill. Absent: tenderness, pedal edema, joint swelling, calf tenderness Back exam: Present: normal inspection Neurological exam: Present: alert, oriented X3, CN II-XII intact Psychiatric exam: Present: normal affect, normal mood Skin exam: Present: warm, dry, intact, normal color. Absent: rash Course Vital Signs 04/24/17 04/24/17 04/24/17 11:45 12:01 12:40 Temperature 99.5 F Pulse Rate 118 H 113 H 112 H Respiratory 26 H 24 24 Rate Blood Pressure 112/54 121/59 120/62 O2 Sat by Pulse 97 75 L 91 L Oximetry Medical Decision Making - Medical Decision Making I did discuss the findings with the patient's family and patient will be admitted Dr. Dennison had seen the patient initially in the ER before workup was completed. Patient will be admitted with consultation by both Dr. Dennison and cardiology. - Lab Data Result diagrams: 04/24/17 12:10 04/24/17 12:10 Lab Results 04/24/17 04/24/17 04/24/17 Range/Units 12:10 12:10 12:10 WBC 6.5 (3.8-10.6) k/uL RBC 4.23 L (4.30-5.90) m/uL Hgb 11.8 L (13.0-17.5) gm/dL Hct 36.0 L (39.0-53.0) % MCV 85.2 D (80.0-100.0) fL MCH 28.0 (25.0-35.0) pg MCHC 32.9 (31.0-37.0) g/dL RDW 17.1 H (11.5-15.5) % Plt Count 103 L D (150-450) k/uL Neutrophils % 87 % Lymphocytes % 6 % Monocytes % 4 % Eosinophils % 2 % Basophils % 0 % Neutrophils # 5.7 (1.3-7.7) k/uL Lymphocytes # 0.4 L (1.0-4.8) k/uL Monocytes # 0.2 (0-1.0) k/uL Eosinophils # 0.2 (0-0.7) k/uL Basophils # 0.0 (0-0.2) k/uL Anisocytosis Slight PT (9.0-12.0) sec INR (<1.2) APTT (22.0-30.0) sec Sodium 136 L (137-145) mmol/L Potassium 4.7 (3.5-5.1) mmol/L Chloride 100 (98-107) mmol/L Carbon Dioxide 28 (22-30) mmol/L Anion Gap 8 mmol/L BUN 25 H (9-20) mg/dL Creatinine 0.70 (0.66-1.25) mg/dL Est GFR (CKD-EPI)AfAm >90 (>60 ml/min/1.73 sqM) Est GFR (CKD-EPI)NonAf 89 (>60 ml/min/1.73 sqM) Glucose 120 H (74-99) mg/dL Calcium 8.3 L (8.4-10.2) mg/dL Magnesium 1.9 (1.6-2.3) mg/dL Total Bilirubin 1.1 (0.2-1.3) mg/dL AST 49 (17-59) U/L ALT 29 (21-72) U/L Alkaline Phosphatase 50 (38-126) U/L Total Creatine Kinase <20 L (55-170) U/L CK-MB (CK-2) 0.5 (0.0-2.4) ng/mL CK-MB (CK-2) Rel Index Troponin I 0.044 H* (0.000-0.034) ng/mL NT-Pro-B Natriuret Pep pg/mL Total Protein 6.0 L (6.3-8.2) g/dL Albumin 3.0 L (3.5-5.0) g/dL 04/24/17 04/24/17 Range/Units 12:10 12:10 WBC (3.8-10.6) k/uL RBC (4.30-5.90) m/uL Hgb (13.0-17.5) gm/dL Hct (39.0-53.0) % MCV (80.0-100.0) fL MCH (25.0-35.0) pg MCHC (31.0-37.0) g/dL RDW (11.5-15.5) % Plt Count (150-450) k/uL Neutrophils % % Lymphocytes % % Monocytes % % Eosinophils % % Basophils % % Neutrophils # (1.3-7.7) k/uL Lymphocytes # (1.0-4.8) k/uL Monocytes # (0-1.0) k/uL Eosinophils # (0-0.7) k/uL Basophils # (0-0.2) k/uL Anisocytosis PT 9.7 (9.0-12.0) sec INR 1.0 (<1.2) APTT 22.7 (22.0-30.0) sec Sodium (137-145) mmol/L Potassium (3.5-5.1) mmol/L Chloride (98-107) mmol/L Carbon Dioxide (22-30) mmol/L Anion Gap mmol/L BUN (9-20) mg/dL Creatinine (0.66-1.25) mg/dL Est GFR (CKD-EPI)AfAm (>60 ml/min/1.73 sqM) Est GFR (CKD-EPI)NonAf (>60 ml/min/1.73 sqM) Glucose (74-99) mg/dL Calcium (8.4-10.2) mg/dL Magnesium (1.6-2.3) mg/dL Total Bilirubin (0.2-1.3) mg/dL AST (17-59) U/L ALT (21-72) U/L Alkaline Phosphatase (38-126) U/L Total Creatine Kinase (55-170) U/L CK-MB (CK-2) (0.0-2.4) ng/mL CK-MB (CK-2) Rel Index Troponin I (0.000-0.034) ng/mL NT-Pro-B Natriuret Pep 321 pg/mL Total Protein (6.3-8.2) g/dL Albumin (3.5-5.0) g/dL - EKG Data -: EKG Interpreted by Me (Sinus tachycardia with PACs rate was 118 LA interval 132 QRS duration 84 QT) - Radiology Data Radiology results: report reviewed (Review the imaging shows no definite acute findings), image reviewed Disposition Clinical Impression: Acute exacerbation of chronic obstructive airways disease, Elevated troponin Disposition: ADMITTED IP TO THIS HOSP Condition: Stable Referrals: Lily Carolina MD [Primary Care Provider] - 1-2 days
[2017-04-24 12:31] LABS: Anisocytosis Slight; Basophils % (A) 0 %; Eosinophils # (A) 0.2 k/uL (0-0.7); Eosinophils % (A) 2 %; HGB 11.8 gm/dL (13.0-17.5); Lymphocytes # (A) 0.4 k/uL (1.0-4.8); Lymphocytes % (A) 6 %; MCHC 32.9 g/dL (31.0-37.0); Mean Platelet Volume 7.3; Monocytes # (A) 0.2 k/uL (0-1.0); Monocytes % (A) 4 %; Neutrophils # (A) 5.7 k/uL (1.3-7.7); Neutrophils % (A) 87 %; RBC 4.23 m/uL (4.30-5.90); RDW 17.1 % (11.5-15.5); WBC 6.5 k/uL (3.8-10.6)
[2017-04-24 12:35] LABS: MCV 85.2 fL (80.0-100.0); Platelet Count 103 k/uL (150-450)
[2017-04-24 12:36] LABS: ALT 29 U/L (21-72); AST 49 U/L (17-59); Alkaline Phosphatase 50 U/L (38-126); Anion Gap 8 mmol/L; Blood Urea Nitrogen 25 mg/dL (9-20); Calcium 8.3 mg/dL (8.4-10.2); Carbon Dioxide 28 mmol/L (22-30); Chloride 100 mmol/L (98-107); Glucose 120 mg/dL (74-99); Magnesium 1.9 mg/dL (1.6-2.3); Sodium 136 mmol/L (137-145); Total Bilirubin 1.1 mg/dL (0.2-1.3)
[2017-04-24 12:39] LABS: Prothrombin Time 9.7 sec (9.0-12.0)
--- NOTE | 2017-04-24 12:41 | XR ---
EXAMINATION TYPE: XR chest 2V DATE OF EXAM: 04/24/2017 COMPARISON: 04/12/2017 INDICATION: Difficulty breathing TECHNIQUE: Frontal and lateral views of the chest are obtained. FINDINGS: The heart size is normal. The pulmonary vasculature is normal. There is consolidation which is worsening in the periphery of the right lung. Pulmonary fibrosis. Mil d bibasilar infiltrates are present. Flattening of the diaphragms suggestive for COPD.. IMPRESSION: 1. Worsening peripheral right midlung consolidation. Correlate for pneumonia. 2. Underlying changes suggestive for pulmonary fibrosis. 3. COPD
[2017-04-24 12:45] LABS: Partial Thromboplastin Time 22.7 sec (22.0-30.0)
[2017-04-24 12:49] LABS: Potassium 4.7 mmol/L (3.5-5.1)
[2017-04-24 13:13] LABS: Creatine Kinase MB 0.5 ng/mL (0.0-2.4)
[2017-04-24 13:16] LABS: Troponin I 0.044 ng/mL (0.000-0.034)
[2017-04-24 13:17] LABS: Creatine Kinase <20 U/L (55-170)
[2017-04-24] MEDS ORDERED: HEPARIN SODIUM,PORCINE 5,000 UNIT/ML 1 ML VIAL IV ONE (15:51)
[2017-04-24] MEDS ORDERED: NITROGLYCERIN SL TABS 0.4 MG TAB SUBLINGUAL PRN (15:51)
[2017-04-24] MEDS ORDERED: RX INFO: IV CONTRAST WAS GIVEN 1 EACH MISC MISCELLANE PRN (17:46)
--- NOTE | 2017-04-24 18:00 | P.CNPUL ---
<Ce Tan - Last Filed: 04/24/17 17:11> History of Present Illness Consult date: 04/24/17 Requesting physician: Randal Cuevas Reason for consult: dyspnea, hypoxemia Chief complaint: Shortness of breath, low home oxygen saturations. History of present illness: This is a very pleasant 81-year-old gentleman who follows with Dr. Carolina as his primary care physician. He has a history of prostate cancer treated with radiation therapy, hyperlipidemia, anxiety/depression. 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 He did quit back in 1991. He is maintained on 4 L per minute per nasal cannula at home in the outpatient setting. He follows with Dr. Dennison in our office for the same. He is treated with Advair, Spiriva and albuterol. He also has a recent history of pseudomonas aeruginosa along with methicillin resistant staph aureus pulmonary infections in March 2017. He had a prolonged stay secondary to significant hypoxemia. His most recent discharge was 04/12/2017. He has been maintained on ciprofloxacin 500 mg every 12 hours. He was seen by Dr. Dennison in our office in 04/19/2017. At that time Dr. Dennison was concern regarding possible recurrent infection or possibly resistant infection. The patient was to be seen by Dr. Marshall for IV antibiotics versus the by mouth Cipro. A follow-up sputum culture on 2017 does reveal pseudomonas aeruginosa along with Aspergillus species. He presented here today to the emergency room after a 2 day history of significant fatigue, malaise, worsening shortness of breath with minimal exertion. He and his are measuring his O2 saturations and found it to be as low as 64. Once resting after 15 minutes he was able to get it back up to 82%. His chest x -ray reveals worsening peripheral right mid lung consolidation. There is underlying changes of pulmonary fibrosis along with chronic obstructive pulmonary disease. No leukocytosis. Hemoglobin 11.8. Platelet count 103,000. Creatinine 0.70. Troponin 0.044. Pro BNP 321. EKG reveals sinus tachycardia without any ST or T-wave abnormalities. He was initiated on a heparin drip. He is seen and evaluated in the emergency room. He is awake and alert in no acute distress. His current O2 saturation is 88% on 6 L. Review of Systems Constitutional: Reports fatigue, Reports poor appetite, Reports weakness Eyes: denies blurred vision, denies decreased vision Ears: deny: decreased hearing Ears, nose, mouth and throat: Denies headache, Denies sore throat Cardiovascular: Reports dyspnea on exertion, Reports shortness of breath Respiratory: Reports cough with sputum, Reports dyspnea, Reports excessive sputum, Reports home oxygen Gastrointestinal: Reports loss of appetite Musculoskeletal: Denies myalgias Integumentary: Denies pruritus, Denies rash Neurological: Denies numbness, Denies weakness Psychiatric: Reports anxiety Endocrine: Denies fatigue, Denies weight change Past Medical History Past Medical History: Cancer, COPD, Hyperlipidemia, Pneumonia, Prostate Disorder Additional Past Medical History / Comment(s): Pt recently admitted on 02/23/17 with bilateral pneumonia. Other hx: COPD, pneumonia with sepsis, 2007 prostate cancer treated by radiation therapy, skin cancer with removal, normocytic anemia, cervical DDD. 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 Past Anesthesia/Blood Transfusion Reactions: No Reported Reaction Past Psychological History: Anxiety, Depression Smoking Status: Former smoker Past Alcohol Use History: None Reported Past Drug Use History: None Reported - Past Family History Mother Family Medical History: No Reported History Father Family Medical History: Cancer Additional Family Medical History / Comment(s): spine CA which spread to bone CA Medications and Allergies Home Medications Medication Instructions Recorded Confirmed Type Aspirin 81 mg PO HS 06/02/14 04/24/17 History Fluticasone/Salmeterol [Advair 1 puff INHALATION RT-BID 06/02/14 04/24/17 History 500-50 Diskus] Tamsulosin [Flomax] 0.4 mg PO HS 06/02/14 04/24/17 History Tiotropium [place] [Spiriva] 1 cap INHALATION RT-DAILY 06/02/14 04/24/17 History Simvastatin [Zocor] 10 mg PO HS 08/27/14 04/24/17 History guaiFENesin-DM 600/30MG [Mucinex 1 tab PO DAILY 02/13/16 04/24/17 History Dm] Calcium Carbonate [Calcium] 600 mg PO DAILY 02/24/17 04/24/17 History Melatonin 3 mg PO HS 02/24/17 04/24/17 History busPIRone HCl [Buspar] 5 mg PO BID 02/24/17 04/24/17 History Albuterol Nebulized [Ventolin 2.5 mg INHALATION RT-QID 04/01/17 04/24/17 History Nebulized] predniSONE 10 mg PO DAILY #30 tab 04/12/17 04/24/17 Rx Ciprofloxacin HCl [Cipro] 500 mg PO Q12HR 04/24/17 04/24/17 History Citalopram Hydrobromide [CeleXA] 40 mg PO HS 04/24/17 04/24/17 History Furosemide [Lasix] 40 mg PO DAILY 04/24/17 04/24/17 History Multivit-Min/FA/Lycopen/Lutein 1 tab PO DAILY 04/24/17 04/24/17 History [Centrum Silver Tablet] Nystatin 100,000 Unit/ml Susp 4 ml PO QID 04/24/17 04/24/17 History [Mycostatin Oral Susp] Allergies Allergy/AdvReac Type Severity Reaction Status Date / Time No Known Allergies Allergy Verified 04/24/17 12:16 Physical Exam Vitals: Vital Signs Temp Pulse Resp BP Pulse Ox 04/24/17 15:00 116 H 26 H 109/62 93 L 04/24/17 14:00 110 H 26 H 112/56 99 04/24/17 12:40 112 H 24 120/62 91 L 04/24/17 12:01 113 H 24 121/59 75 L 04/24/17 11:45 99.5 F 118 H 26 H 112/54 97 Intake and Output 04/24/17 04/24/17 04/24/17 06:59 14:59 22:59 Other: Weight 74.843 kg Patient Weight 04/25/17 06:59 Weight 74.843 kg GENERAL EXAM: Alert, fairly comfortable in no acute respiratory distress. EYES: Normal reaction of pupils, equal size. NOSE: Clear with pink turbinates. THROAT: No erythema or exudates. NECK: No masses, no JVD. CHEST: No chest wall deformity. LUNGS: Equal air entry coarse crackles in the bilateral posterior bases. Diminished. CVS: S1 and S2 normal with no audible murmur, regular rhythm. ABDOMEN: No hepatosplenomegaly, normal bowel sounds, no guarding or rigidity. SPINE: No scoliosis or deformity SKIN: No rashes CENTRAL NERVOUS SYSTEM: No focal deficits, tone is normal in all 4 extremities. EXTREMITIES: There is no peripheral edema. No clubbing, no cyanosis. Peripheral pulses are intact. Results - Laboratory Findings CBC and BMP: 04/24/17 12:10 04/24/17 12:10 PT/INR, D-dimer PT 9.7 sec (9.0-12.0) 04/24/17 12:10 INR 1.0 (<1.2) 04/24/17 12:10 Abnormal lab findings: Abnormal Labs 04/24/17 04/24/17 04/24/17 12:10 12:10 12:10 RBC 4.23 L Hgb 11.8 L Hct 36.0 L RDW 17.1 H Plt Count 103 L D Lymphocytes # 0.4 L Sodium 136 L BUN 25 H Glucose 120 H Calcium 8.3 L Total Creatine Kinase <20 L Troponin I 0.044 H* Total Protein 6.0 L Albumin 3.0 L - Diagnostic Findings Chest x-ray: image reviewed Assessment and Plan Assessment: Impression: #1 Acute on chronic hypoxic respiratory failure secondary to recurrent peripheral right mid lung consolidations with positive pseudomonas aeruginosa and Aspergillus species and a recent sputum sample on 04/22/2017. The patient had been discharged most recently on Cipro 500 mg twice a day. ID consultation is pending. #2 Recent right lung pneumonia secondary to Pseudomonas aeruginosa and methicillin-resistant Staphylococcus aureus. Most recent discharge 04/12/2017. #3 Acute exacerbation of severe oxygen dependent chronic obstructive pulmonary disease. #4 40 year 2 pack per day smoking however history however quit back in 1991. #5 History of prostate cancer treated with radiation therapy. Currently on Flomax. #6 History of anxiety/depression. Currently on BuSpar and Celexa. #7 Hyperlipidemia. Currently on simvastatin. #8 Elevated troponins. Plan: The patient was seen and evaluated by Dr. Dennison. His chest x-ray, microbials and labs were all reviewed. There is some concern regarding possibly a fungal ball versus cavitary lesions from other causes due his recurrent lung infections. His Last Admission He Was Offered Bronchoscopy with BAL on Multiple Occasions. His Pulmonary Status Is so Borderline He May End up on the Mechanical Ventilator. He Had Refused at That Time. We Will Obtain a Computed Tomography Scan of the Chest. Discontinue the Ciprofloxacin. Add Cefepime. Consult Infectious Disease. Initiate IV Solu-Medrol, bronchodilators , Mucinex. He is on a heparin drip for the elevated troponin. Continue to titrate the FiO2 to maintain O2 saturations greater than 90%. We'll continue to monitor him closely and make further recommendations based on his clinical status. I, the cosigning physician, performed a history & physical examination of the patient. Lungs sounds have scattered rhonchi, coarse crackles in the posterior bases more so on the right diminished.. Maintaining good O2 saturations in the 90s on 6 L/m per nasal cannula. I discussed the assessment and plan of care with my nurse practitioner, Ce Tan. I attest to the above note as dictated by her. Time with Patient: Greater than 30 <Charleen Dennison - Last Filed: 04/25/17 14:35> Physical Exam Vitals: Vital Signs Temp Pulse Pulse Resp BP BP BP 04/25/17 13:01 102 H 16 04/25/17 12:51 100 16 04/25/17 09:00 104 H 04/25/17 08:45 96 04/25/17 08:00 97.4 F L 100 18 115/61 04/25/17 04:56 100 04/25/17 04:47 104 H 04/25/17 04:00 97.6 F 97 20 98/53 04/25/17 00:00 97.6 F 107 H 20 104/57 04/24/17 23:34 103 H 04/24/17 23:28 04/24/17 23:25 101 H 04/24/17 21:40 98.3 F 107 H 26 H 142/76 04/24/17 20:56 98.7 F 111 H 26 H 145/56 04/24/17 19:45 114 H 04/24/17 19:13 97.3 F L 114 H 18 140/65 04/24/17 18:00 105 H 26 H 124/61 04/24/17 17:00 108 H 26 H 133/57 04/24/17 16:00 104 H 26 H 140/70 04/24/17 15:00 116 H 26 H 109/62 Pulse Ox 04/25/17 13:01 04/25/17 12:51 04/25/17 09:00 04/25/17 08:45 91 L 04/25/17 08:00 91 L 04/25/17 04:56 04/25/17 04:47 04/25/17 04:00 92 L 04/25/17 00:00 92 L 04/24/17 23:34 04/24/17 23:28 92 L 04/24/17 23:25 04/24/17 21:40 91 L 04/24/17 20:56 90 L 04/24/17 19:45 04/24/17 19:13 92 L 04/24/17 18:00 93 L 04/24/17 17:00 93 L 04/24/17 16:00 93 L 04/24/17 15:00 93 L Intake and Output 04/24/17 04/25/17 04/25/17 22:59 06:59 14:59 Intake Total 443.76 527.36 Output Total 225 200 Balance -225 443.76 327.36 Intake: Intake, IV Titration 107.76 287.36 Amount Heparin Sod,Pork in 0.45% 107.76 287.36 NaCl 25,000 unit In 0.45 % NaCl 1 500ml.bag @ 12 UNITS/KG/HR 17.96 mls/hr IV .Q24H [facility] Rx#: [id number] Oral 336 240 Output: Urine 225 200 Other: # Voids 1 # Bowel Movements 0 Weight 74 kg 74 kg Results - Laboratory Findings CBC and BMP: 04/24/17 12:10 04/24/17 12:10 PT/INR, D-dimer PT 9.7 sec (9.0-12.0) 04/24/17 12:10 INR 1.0 (<1.2) 04/24/17 12:10 Abnormal lab findings: Abnormal Labs 04/24/17 04/24/17 04/24/17 12:10 12:10 12:10 RBC 4.23 L Hgb 11.8 L Hct 36.0 L RDW 17.1 H Plt Count 103 L D Lymphocytes # 0.4 L APTT Sodium 136 L BUN 25 H Glucose 120 H POC Glucose (mg/dL) Calcium 8.3 L Total Creatine Kinase <20 L Troponin I 0.044 H* Total Protein 6.0 L Albumin 3.0 L 04/24/17 04/25/17 04/25/17 18:52 00:42 00:42 RBC Hgb Hct RDW Plt Count Lymphocytes # APTT 31.9 H Sodium BUN Glucose POC Glucose (mg/dL) Calcium Total Creatine Kinase <20 L <20 L Troponin I Total Protein Albumin 04/25/17 04/25/17 04/25/17 05:46 06:44 11:45 RBC Hgb Hct RDW Plt Count Lymphocytes # APTT 36.0 H Sodium BUN Glucose POC Glucose (mg/dL) 158 H 155 H Calcium Total Creatine Kinase Troponin I Total Protein Albumin 04/25/17 12:50 RBC Hgb Hct RDW Plt Count Lymphocytes # APTT 30.8 H Sodium BUN Glucose POC Glucose (mg/dL) Calcium Total Creatine Kinase Troponin I Total Protein Albumin Assessment and Plan Assessment: This is a joint evaluation was done along with the nurse practitioner. The patient is symptomatic and the patient is having recurrent COPD exacerbation the patient has persistent consolidation of the right lung. Rule out ongoing pseudomonal pneumonia with cavitation. Rule out superimposed fungal infection specially the patient's sputum is shown Aspergillus. We'll admit this patient to the hospital. We'll stop the Cipro. We'll put the patient IV cefepime. We' ll put the patient on Sporanox. We'll obtain a CAT scan of the chest. We'll obtain ID consultation. We'll continue to follow.
--- NOTE | 2017-04-24 18:53 | CT ---
EXAMINATION TYPE: CT chest w con DATE OF EXAM: 04/24/2017 COMPARISON: CTA chest August 28, 2014. Chest x-ray from earlier today and older studies. HISTORY: Shortness of breath CT DLP: 330.2 mGycm. Automated Exposure Control for Dose Reduction was Utilized. TECHNIQUE: CT scan of the thorax is performed following with IV Contrast, patient injected with 100 mL of Omnipaque 300. FINDINGS: LUNGS: Fairly advanced emphysematous change is redemonstrated with scattered areas of scarring and/or fibrosis. Areas of increased opacity bilateral lower lungs are identified. There is more irregular c onsolidation involving the posterior inferior aspect right upper lobe more suspicious for acute pulmo nary process or pneumonia. No pneumothorax is seen bilaterally. There is small right midlung pleural fluid collection. MEDIASTINUM: There are no greater than 1 cm hilar or mediastinal lymph nodes. No cardiomegaly is se en. There is tiny pericardial effusion noted. OTHER: Few scattered calcifications throughout the spleen are redemonstrated. 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 Advanced emphysematous change with scattered areas of fibrosis, irregular consolidation posterior inferior right upper lobe is suspicious for acute focal pneumonia. Additional areas of less prominent acute infiltrate in the bilateral lower lungs is difficult to exclude.
[2017-04-24] MEDS: HEPARIN SOD,PORK IN 0.45% NACL 25,000 UNIT in 0.45% NACL 1 500ML.BAG IV SCH (19:21)
[2017-04-24] MEDS: methylPREDNISolone SOD SUCCI 125 MG/2 ML VIAL IV SCH ×2 (19:24→23:17)
[2017-04-24 19:38] LABS: Creatine Kinase <20 U/L (55-170)
[2017-04-24] MEDS: IPRATROPIUM-ALBUTEROL 3 ML NEB INHALATION SCH ×3 (19:43→23:25)
[2017-04-24 19:51] LABS: Creatine Kinase MB 0.6 ng/mL (0.0-2.4); Troponin I 0.028 ng/mL (0.000-0.034)
[2017-04-24] MEDS ORDERED: CIPROFLOXACIN HCL 500 MG TAB PO SCH (21:00)
[2017-04-24] MEDS ORDERED: ASPIRIN 81 MG PO SCH (21:00)
[2017-04-24] MEDS: CEFEPIME 2 GM in SODIUM CHLORIDE 0.9% 50 ML IVPB SCH (21:28)
[2017-04-24] MEDS: NYSTATIN 100,000 UNIT/ML SUSP 500,000 UNIT/5 ML CUP PO SCH ×2 (21:30→22:32)
[2017-04-24] MEDS: ITRACONAZOLE 100 MG CAP PO SCH ×2 (21:30→21:35)
[2017-04-24] MEDS: ATORVASTATIN 10 MG TAB PO SCH (21:31)
[2017-04-24] MEDS: busPIRone HCl 5 MG TAB PO SCH (21:33)
[2017-04-24] MEDS: TAMSULOSIN 0.4 MG CAP.ER.24H PO SCH (21:33)
[2017-04-24] MEDS: MELATONIN 3 MG TABLET PO SCH (21:34)
[2017-04-24] MEDS: CITALOPRAM HYDROBROMIDE 20 MG TAB PO SCH (21:34)
[2017-04-24 22:25] VITALS: BMI 25.5
--- NOTE | 2017-04-25 00:51 | P.HPIM ---
History of Present Illness H&P Date: 04/24/17 Chief Complaint: Shortness of breath and hypoxia Patient is a 81-year-old male with a known history of COPD on home oxygen, hyperlipidemia history of prostate cancer status post radiation, hypertension and recent Pseudomonas sputum culture with pneumonia during last admission on came to ER with complaints of worsening shortness of breath and hypoxia. Patient follows with Dr. Dennison as an outpatient. Patient was seen by Dr. Dennison on 04/19/2017 and sputum cultures on 04/22/2017 showed Pseudomonas and Aspergillus species. Patient was suspected to have persistent Pseudomonas. Patient was recently sent home on ciprofloxacin as per ID recommendations. Otherwise patient does have worsening shortness of breath and fatigue and generalized weakness and hypoxia with pulse ox dropping down to 84% with nasal cannula at home. Patient came to the hospital for further evaluation. Patient has been having Pseudomonas and MRSA pneumonia since February 2017 Chest x-ray showed worsening right peribronchial infiltrates and chronic pulmonary fibrosis changes and COPD. Troponin 0.044 BNP 321 EKG showed sinus tachycardia. Currently saturating at 90% on 6 L mild cannula. Pulse ox is dropping down to 85% with minimal conversation. Review of Systems Constitutional: Patient denies any fever or chills . No generalized weakness or weight loss. Abdomen: Patient denied nausea vomiting and diarrhea and abdominal pain. Cardiovascular: Patient denies any chest pain or short of breath no palpitations. Respiratory: No cough or sputum production. Shortness of breath with hypoxia present Neurologic: Patient denied any numbness or tingling headache. Musculoskeletal: Patient denies any complaints of joint swelling or deformity. Skin: Negative Psychiatric: Negative Endocrine: No heat or cold intolerance. No recent weight gain. Genitourinary: No dysuria or hematuria. All other 14 point ROS negative except the above Past Medical History Past Medical History: Cancer, COPD, Hyperlipidemia, Pneumonia, Prostate Disorder Additional Past Medical History / Comment(s): Pt recently admitted on 02/23/17 with bilateral pneumonia. Other hx: COPD, pneumonia with sepsis, 2008 prostate cancer treated by radiation therapy, skin cancer with removal, normocytic anemia, cervical DDD. 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 Past Anesthesia/Blood Transfusion Reactions: No Reported Reaction Past Psychological History: Anxiety, Depression Smoking Status: Former smoker Past Alcohol Use History: None Reported Past Drug Use History: None Reported - Past Family History Mother Family Medical History: No Reported History Father Family Medical History: Cancer Additional Family Medical History / Comment(s): spine CA which spread to bone CA Medications and Allergies Home Medications Medication Instructions Recorded Confirmed Type Aspirin 81 mg PO HS 06/02/14 04/24/17 History Fluticasone/Salmeterol [Advair 1 puff INHALATION RT-BID 06/02/14 04/24/17 History 500-50 Diskus] Tamsulosin [Flomax] 0.4 mg PO HS 06/02/14 04/24/17 History Tiotropium [place] [Spiriva] 1 cap INHALATION RT-DAILY 06/02/14 04/24/17 History Simvastatin [Zocor] 10 mg PO HS 08/27/14 04/24/17 History guaiFENesin-DM 600/30MG [Mucinex 1 tab PO DAILY 02/13/16 04/24/17 History Dm] Calcium Carbonate [Calcium] 600 mg PO DAILY 02/24/17 04/24/17 History Melatonin 3 mg PO HS 02/24/17 04/24/17 History busPIRone HCl [Buspar] 5 mg PO BID 02/24/17 04/24/17 History Albuterol Nebulized [Ventolin 2.5 mg INHALATION RT-QID 04/01/17 04/24/17 History Nebulized] predniSONE 10 mg PO DAILY #30 tab 04/12/17 04/24/17 Rx Ciprofloxacin HCl [Cipro] 500 mg PO Q12HR 04/24/17 04/24/17 History Citalopram Hydrobromide [CeleXA] 40 mg PO HS 04/24/17 04/24/17 History Furosemide [Lasix] 40 mg PO DAILY 04/24/17 04/24/17 History Multivit-Min/FA/Lycopen/Lutein 1 tab PO DAILY 04/24/17 04/24/17 History [Centrum Silver Tablet] Nystatin 100,000 Unit/ml Susp 4 ml PO QID 04/24/17 04/24/17 History [Mycostatin Oral Susp] Allergies Allergy/AdvReac Type Severity Reaction Status Date / Time No Known Allergies Allergy Verified 04/24/17 12:16 Physical Exam Vitals: Vital Signs Temp Pulse Resp BP Pulse Ox 04/24/17 17:00 108 H 26 H 133/57 93 L 04/24/17 15:00 116 H 26 H 109/62 93 L 04/24/17 14:00 110 H 26 H 112/56 99 04/24/17 12:40 112 H 24 120/62 91 L 04/24/17 12:01 113 H 24 121/59 75 L 04/24/17 11:45 99.5 F 118 H 26 H 112/54 97 Intake and Output 04/24/17 04/24/17 04/24/17 06:59 14:59 22:59 Other: Weight 74.843 kg Patient Weight 04/25/17 06:59 Weight 74.843 kg PHYSICAL EXAMINATION: Patient is lying in the bed comfortably, no acute distress, awake alert and oriented.. HEENT: Normocephalic. Neck is supple. Pupils reactive. Nostrils clear. Oral cavity is moist. Ears reveal no drainage. Neck reveals no JVD, carotid bruits, or thyromegaly. CHEST EXAMINATION: Trachea is central. Symmetrical expansion. Right basilar rhonchi and minimal expiratory wheeze. Nonlabored. CARDIAC: Normal S1, S2 with no gallops. No murmurs ABDOMEN: Soft. Bowel sounds normal. No organomegaly. No abdominal bruits. Extremities: reveal no edema. No clubbing or cyanosis Neurologically awake, alert, oriented x3 with well-coordinated movements. No focal deficits noted Skin: No rash or skin lesions. Psychiatric: Coperative. Nonsuicidal Musculoskeletal: No joint swelling or deformity. Normal range of motion. Results CBC & Chem 7: 04/24/17 12:10 04/24/17 12:10 Labs: Abnormal Lab Results - Last 24 Hours (Table) 04/24/17 04/24/17 04/24/17 Range/Units 12:10 12:10 12:10 RBC 4.23 L (4.30-5.90) m/uL Hgb 11.8 L (13.0-17.5) gm/dL Hct 36.0 L (39.0-53.0) % RDW 17.1 H (11.5-15.5) % Plt Count 103 L D (150-450) k/uL Lymphocytes # 0.4 L (1.0-4.8) k/uL Sodium 136 L (137-145) mmol/L BUN 25 H (9-20) mg/dL Glucose 120 H (74-99) mg/dL Calcium 8.3 L (8.4-10.2) mg/dL Total Creatine Kinase <20 L (55-170) U/L Troponin I 0.044 H* (0.000-0.034) ng/mL Total Protein 6.0 L (6.3-8.2) g/dL Albumin 3.0 L (3.5-5.0) g/dL Thrombosis Risk Factor Assmnt - DVT/VTE Prophylaxis DVT/VTE Prophylaxis: Pharmacologic Prophylaxis ordered Assessment and Plan Assessment: Acute on chronic hypoxic respiratory failure secondary to worsening right perihilar infiltrates with recent sputum cultures showing Pseudomonas and Aspergillus species on 04/22/2017. Right lung pneumonia due to Pseudomonas aeruginosa and MRSA Acute COPD exacerbation Elevated troponin. Possible non-ST elevated MO History of Pseudomonas and MRSA pneumonia in February 2017 COPD severe with an FEV1 of 45% predicted at baseline prostate cancer treated by radiation therapy chronic anxiety/depression hyperlipidemia maintained on Zocor DVT prophylaxis Plan: Patient be continued on antibiotics in the form of cefepime and Itraconazole. Pulmonary is following. ID was consulted as well. Patient was started on heparin drip for possible non-ST elevated MO. Patient be continued on IV steroids and breathing treatments. Continue with oxygen therapy and follow closely. We'll elise is guarded with multiple medical problems and comorbid conditions and persistent pneumonia. Further recommendations based on the clinical course. Time with Patient: Greater than 30
[2017-04-25 01:22] LABS: Creatine Kinase <20 U/L (55-170)
[2017-04-25 01:23] LABS: Cholesterol 121 mg/dL (<200); HDL Cholesterol 42 mg/dL (40-60); LDL Cholesterol,Calculated 63 mg/dL (0-99); Triglycerides 80 mg/dL (<150)
[2017-04-25 01:32] LABS: Creatine Kinase MB 0.8 ng/mL (0.0-2.4)
[2017-04-25 01:35] LABS: Troponin I 0.023 ng/mL (0.000-0.034)
[2017-04-25] MEDS: IPRATROPIUM-ALBUTEROL 3 ML NEB INHALATION SCH ×7 (04:47→23:16)
[2017-04-25 05:57] LABS: Glucose,Whole Blood 158 mg/dL (75-99)
[2017-04-25] MEDS: INSULIN ASPART 100 UNIT/ML 1 ML 10 ML VIAL SQ SCH ×4 (06:08→20:38)
[2017-04-25] MEDS: methylPREDNISolone SOD SUCCI 125 MG/2 ML VIAL IV SCH ×4 (06:10→23:27)
[2017-04-25] MEDS ORDERED: NON-FORMULARY DRUG (Tiotropium Bromide [Spiriva] 1 CAP) INHALATION SCH (08:00)
[2017-04-25] MEDS: CEFEPIME 2 GM in SODIUM CHLORIDE 0.9% 50 ML IVPB SCH (08:47)
[2017-04-25] MEDS: FUROSEMIDE 40 MG TAB PO SCH ×2 (08:47→09:00)
[2017-04-25] MEDS: ASPIRIN 325 MG TAB PO SCH (08:47)
[2017-04-25] MEDS: MULTIVITAMINS, THERA 1 EACH TAB PO SCH (08:47)
[2017-04-25] MEDS: CALCIUM CARBONATE 500 MG CHEWABLE PO SCH (08:47)
[2017-04-25] MEDS: NYSTATIN 100,000 UNIT/ML SUSP 500,000 UNIT/5 ML CUP PO SCH ×4 (08:47→20:29)
[2017-04-25] MEDS: busPIRone HCl 5 MG TAB PO SCH ×2 (08:48→20:29)
[2017-04-25] MEDS: guaiFENesin-DM 600/30MG 1 EACH TAB.ER.12H PO SCH (08:48)
--- NOTE | 2017-04-25 09:21 | P.CRDCN ---
History of Present Illness History of present illness: Patient admitted with shortness of breath Cardiology was consulted on account of abnormal troponins When directly interviewed, the patient stated that he does have midsternal chest discomfort off and on that can last for 1-2 hours and his primary cardiology Dr. Diane did want to do a stress test on him as an outpatient Past history of cancer COPD dyslipidemia and large prostate bilateral pneumonias anemia Past surgical history of appendectomy Data review Computed tomography scan shows advanced emphysematous changes Lead ECG shows sinus tachycardia no ST segment abnormalities occasional PACs Hemoglobin 11.8 sodium 136 potassium 4.7 BUN 25 creatinine 0.7 Troponins 0.44 Impression Normal ECG Borderline single troponin Patient admitted with pulmonary problems and shortness of breath He does complain of recurrent chest discomfort Plan Continue statins and aspirin and oral Lasix Consider low-dose beta blockers Medical treatment for possible coronary artery disease and outpatient reevaluation with Dr. Schreiber an outpatient stress testing after completion of IV antibiotics If he has chest pain in the hospital he should get a 12-lead ECG stat for comparison with baseline Past Medical History Past Medical History: Cancer, COPD, Hyperlipidemia, Pneumonia, Prostate Disorder Additional Past Medical History / Comment(s): Pt recently admitted on 02/23/17 with bilateral pneumonia. Other hx: COPD, pneumonia with sepsis, 2007 prostate cancer treated by radiation therapy, skin cancer with removal, normocytic anemia, cervical DDD. 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 Past Anesthesia/Blood Transfusion Reactions: No Reported Reaction Past Psychological History: Anxiety, Depression Smoking Status: Former smoker Past Alcohol Use History: None Reported Past Drug Use History: None Reported - Past Family History Mother Family Medical History: No Reported History Father Family Medical History: Cancer Additional Family Medical History / Comment(s): spine CA which spread to bone CA Medications and Allergies Home Medications Medication Instructions Recorded Confirmed Type Aspirin 81 mg PO HS 06/02/14 04/24/17 History Fluticasone/Salmeterol [Advair 1 puff INHALATION RT-BID 06/02/14 04/24/17 History 500-50 Diskus] Tamsulosin [Flomax] 0.4 mg PO HS 06/02/14 04/24/17 History Tiotropium [place] [Spiriva] 1 cap INHALATION RT-DAILY 06/02/14 04/24/17 History Simvastatin [Zocor] 10 mg PO HS 08/27/14 04/24/17 History guaiFENesin-DM 600/30MG [Mucinex 1 tab PO DAILY 02/13/16 04/24/17 History Dm] Calcium Carbonate [Calcium] 600 mg PO DAILY 02/24/17 04/24/17 History Melatonin 3 mg PO HS 02/24/17 04/24/17 History busPIRone HCl [Buspar] 5 mg PO BID 02/24/17 04/24/17 History Albuterol Nebulized [Ventolin 2.5 mg INHALATION RT-QID 04/01/17 04/24/17 History Nebulized] predniSONE 10 mg PO DAILY #30 tab 04/12/17 04/24/17 Rx Ciprofloxacin HCl [Cipro] 500 mg PO Q12HR 04/24/17 04/24/17 History Citalopram Hydrobromide [CeleXA] 40 mg PO HS 04/24/17 04/24/17 History Furosemide [Lasix] 40 mg PO DAILY 04/24/17 04/24/17 History Multivit-Min/FA/Lycopen/Lutein 1 tab PO DAILY 04/24/17 04/24/17 History [Centrum Silver Tablet] Nystatin 100,000 Unit/ml Susp 4 ml PO QID 04/24/17 04/24/17 History [Mycostatin Oral Susp] Allergies Allergy/AdvReac Type Severity Reaction Status Date / Time No Known Allergies Allergy Verified 04/24/17 12:16 Physical Exam Vitals: Vital Signs Temp Pulse Pulse Resp BP BP BP 04/25/17 04:56 100 04/25/17 04:47 104 H 04/25/17 04:00 97.6 F 97 20 98/53 04/25/17 00:00 97.6 F 107 H 20 104/57 04/24/17 23:34 103 H 04/24/17 23:28 04/24/17 23:25 101 H 04/24/17 21:40 98.3 F 107 H 26 H 142/76 04/24/17 20:56 98.7 F 111 H 26 H 145/56 04/24/17 19:45 114 H 04/24/17 19:13 97.3 F L 114 H 18 140/65 04/24/17 18:00 105 H 26 H 124/61 04/24/17 17:00 108 H 26 H 133/57 04/24/17 16:00 104 H 26 H 140/70 04/24/17 15:00 116 H 26 H 109/62 04/24/17 14:00 110 H 26 H 112/56 04/24/17 12:40 112 H 24 120/62 04/24/17 12:01 113 H 24 121/59 04/24/17 11:45 99.5 F 118 H 26 H 112/54 Pulse Ox 04/25/17 04:56 04/25/17 04:47 04/25/17 04:00 92 L 04/25/17 00:00 92 L 04/24/17 23:34 04/24/17 23:28 92 L 04/24/17 23:25 04/24/17 21:40 91 L 04/24/17 20:56 90 L 04/24/17 19:45 04/24/17 19:13 92 L 04/24/17 18:00 93 L 04/24/17 17:00 93 L 04/24/17 16:00 93 L 04/24/17 15:00 93 L 04/24/17 14:00 99 04/24/17 12:40 91 L 04/24/17 12:01 75 L 04/24/17 11:45 97 Intake and Output 04/24/17 04/25/17 04/25/17 22:59 06:59 14:59 Intake Total 443.76 Output Total 225 Balance -225 443.76 Intake: Intake, IV Titration 107.76 Amount Heparin Sod,Pork in 0.45% 107.76 NaCl 25,000 unit In 0.45 % NaCl 1 500ml.bag @ 12 UNITS/KG/HR 17.96 mls/hr IV .Q24H [facility] Rx#: [id number] Oral 336 Output: Urine 225 Other: Weight 74 kg 74 kg Results 04/24/17 12:10 04/24/17 12:10 Cardiac Enzymes 03/09/0404/24/17 04/24/17 Range/Units 12:10 12:10 18:52 AST 49 (17-59) U/L CK-MB (CK-2) 0.5 0.6 (0.0-2.4) ng/mL Troponin I 0.044 H* 0.028 (0.000-0.034) ng/mL 04/25/17 Range/Units 00:42 AST (17-59) U/L CK-MB (CK-2) 0.8 (0.0-2.4) ng/mL Troponin I 0.023 (0.000-0.034) ng/mL Coagulation 04/24/17 04/25/17 04/25/17 Range/Units 12:10 00:42 06:44 PT 9.7 (9.0-12.0) sec APTT 22.7 31.9 H 36.0 H (22.0-30.0) sec Lipids 04/25/17 Range/Units 00:42 Triglycerides 80 (<150) mg/dL Cholesterol 121 (<200) mg/dL HDL Cholesterol 42 (40-60) mg/dL CBC 04/24/17 Range/Units 12:10 WBC 6.5 (3.8-10.6) k/uL RBC 4.23 L (4.30-5.90) m/uL Hgb 11.8 L (13.0-17.5) gm/dL Hct 36.0 L (39.0-53.0) % Plt Count 103 L D (150-450) k/uL Comprehensive Metabolic Panel 04/24/17 Range/Units 12:10 Sodium 136 L (137-145) mmol/L Potassium 4.7 (3.5-5.1) mmol/L Chloride 100 (98-107) mmol/L Carbon Dioxide 28 (22-30) mmol/L BUN 25 H (9-20) mg/dL Creatinine 0.70 (0.66-1.25) mg/dL Glucose 120 H (74-99) mg/dL Calcium 8.3 L (8.4-10.2) mg/dL AST 49 (17-59) U/L ALT 29 (21-72) U/L Alkaline Phosphatase 50 (38-126) U/L Total Protein 6.0 L (6.3-8.2) g/dL Albumin 3.0 L (3.5-5.0) g/dL Current Medications Generic Name Dose Route Start Last Admin Trade Name Coryq PRN Reason Stop Dose Admin Albuterol/Ipratropium 3 ml 04/24/17 16:00 04/25/17 04:47 Duoneb 0.5 Mg-3 Mg/3 Ml Soln INHALATION 3 ml RT-Q4H [facility] Administration Aspirin 325 mg 04/25/17 09:00 Aspirin PO DAILY [facility] Atorvastatin Calcium 10 mg 04/24/17 21:00 04/24/17 21:31 Lipitor PO 10 mg HS [facility] Administration Buspirone HCl 5 mg 04/24/17 21:00 04/24/17 21:33 Buspar PO 5 mg BID [facility] Administration Calcium Carbonate/Glycine 500 mg 04/25/17 09:00 Tums PO DAILY [facility] Citalopram Hydrobromide 40 mg 04/24/17 21:00 04/24/17 21:34 Celexa PO 40 mg HS [facility] Administration Furosemide 40 mg 04/25/17 09:00 Lasix PO DAILY [facility] Guaifenesin/Dextromethorphan 1 each 04/25/17 09:00 Mucinex Dm PO DAILY [facility] Heparin Sodium/Sodium Chloride 500 mls @ 17.96 mls/hr 04/24/17 16:00 01:21 25,000 unit/ Sodium Chloride IV 15 units/kg/hr .Q24H [facility] 22.45 mls/hr Protocol Titration 12 UNITS/KG/HR Cefepime HCl 2 gm/ Sodium 50 mls @ 100 mls/hr 04/24/17 21:00 04/24/17 21:28 Chloride IVPB 100 mls/hr Q12HR [facility] Administration Insulin Aspart 0 unit 04/25/17 07:30 04/25/17 06:08 Novolog SQ 3 unit ACHS [facility] Administration Protocol Itraconazole 200 mg 04/24/17 18:00 04/24/17 21:35 Sporanox PO Not Given DAILY [facility] Melatonin 3 mg 04/24/17 21:00 04/24/17 21:34 Melatonin PO 3 mg HS [facility] Administration Methylprednisolone Sodium Succinate 60 mg 04/24/17 18:00 04/25/17 06:10 Solu-Medrol IV 60 mg Q6HR [facility] Administration Miscellaneous Information 1 each 04/24/17 17:46 Rx Info: Iv Contrast Was Given MISCELLANE 04/26/17 17:46 DAILY PRN Per Protocol Multivitamins 1 each 04/25/17 09:00 Theragran PO DAILY [facility] Nitroglycerin 0.4 mg 04/24/17 15:51 Nitrostat SUBLINGUAL Q5M PRN Chest Pain Nystatin 400,000 unit 04/24/17 18:00 04/24/17 22:32 Mycostatin Oral Susp PO Not Given QID [facility] Tamsulosin HCl 0.4 mg 04/24/17 21:00 04/24/17 21:33 Flomax PO 0.4 mg HS [facility] Administration Intake and Output 04/24/17 04/25/17 04/25/17 22:59 06:59 14:59 Intake Total 443.76 Output Total 225 Balance -225 443.76 Intake: Intake, IV Titration 107.76 Amount Heparin Sod,Pork in 0.45% 107.76 NaCl 25,000 unit In 0.45 % NaCl 1 500ml.bag @ 12 UNITS/KG/HR 17.96 mls/hr IV .Q24H [facility] Rx#: [id number] Oral 336 Output: Urine 225 Other: Weight 74 kg 74 kg 04/24/17 12:10 04/24/17 12:10
[2017-04-25 11:47] LABS: Glucose,Whole Blood 155 mg/dL (75-99)
[2017-04-25] MEDS: ITRACONAZOLE 100 MG CAP PO SCH (11:57)
[2017-04-25 12:33] LABS: Hemoglobin A1C 5.4 % (4.0-6.0)
[2017-04-25] MEDS ORDERED: HEPARIN SODIUM,PORCINE 5,000 UNIT/ML 1 ML VIAL IV STA (13:45)
[2017-04-25] MEDS: HEPARIN SOD,PORK IN 0.45% NACL 25,000 UNIT in 0.45% NACL 1 500ML.BAG IV SCH (14:09)
--- NOTE | 2017-04-25 14:39 | P.PN ---
Subjective Progress Note Date: 04/25/17 On 04/25/2017 I'm seeing this patient for a follow-up regarding his acute COPD exacerbation. As mentioned earlier the patient has advanced COPD. The patient was hospitalized for an extensive right lung pneumonia back in March 2017 and the sputum was growing Pseudomonas. He was treated as an inpatient. He was discharged home on oral ciprofloxacin. He continued to have positive pseudomonas aeruginosa in his sputum. He was having worsening shortness of breath and his COPD was exacerbating. Based on that the patient had another sputum analysis an outpatient basis and the patient was found to have Pseudomonas and Aspergillus. I was concerned of cavitation for that reason a ordered a CAT scan of the chest and I started the patient on a combination of IV cefepime and oral Sporanox. ID consultation is still pending for now. Meanwhile, the CAT scan of the chest was done and showed extensive and advanced centrilobular emphysema scattered areas of fibrosis in addition to consolidation of the right upper lobe consistent with pneumonia. No active cavitation was seen. Small mid lung pleural fluid was also noted. Clinically the patient is feeling better. The patient is less short of breath compared to yesterday. He is still on 4 L of oxygen nasal cannula. He is on bronchodilators and steroids. Cough and congestion has subsided compared to yesterday. Objective - Vital Signs Vital signs: Vital Signs Temp 97.4 F L 04/25/17 08:00 Pulse 102 H 04/25/17 13:01 Resp 16 04/25/17 13:01 BP 115/61 04/25/17 08:00 Pulse Ox 91 L 04/25/17 08:45 Intake & Output 04/24/17 04/25/17 04/25/17 18:59 06:59 18:59 Intake Total 443.76 527.36 Output Total 225 200 Balance 218.76 327.36 Weight 74 kg 74 kg Intake: Intake, IV Titration 107.76 287.36 Amount Heparin Sod,Pork in 0.45% 107.76 287.36 NaCl 25,000 unit In 0.45 % NaCl 1 500ml.bag @ 12 UNITS/KG/HR 17.96 mls/hr IV .Q24H [facility] Rx#: [id number] Oral 336 240 Output: Urine 225 200 Other: # Voids 1 # Bowel Movements 0 - Exam GENERAL EXAM: Alert, fairly comfortable in no acute respiratory distress. EYES: Normal reaction of pupils, equal size. NOSE: Clear with pink turbinates. THROAT: No erythema or exudates. NECK: No masses, no JVD. CHEST: No chest wall deformity. LUNGS: Equal air entry coarse crackles in the bilateral posterior bases. Diminished. CVS: S1 and S2 normal with no audible murmur, regular rhythm. ABDOMEN: No hepatosplenomegaly, normal bowel sounds, no guarding or rigidity. SPINE: No scoliosis or deformity SKIN: No rashes CENTRAL NERVOUS SYSTEM: No focal deficits, tone is normal in all 4 extremities. EXTREMITIES: There is no peripheral edema. No clubbing, no cyanosis. Peripheral pulses are intact. - Labs CBC & Chem 7: 04/24/17 12:10 04/24/17 12:10 Labs: Abnormal Lab Results - Last 24 Hours (Table) 04/24/17 04/25/17 04/25/17 Range/Units 18:52 00:42 00:42 APTT 31.9 H (22.0-30.0) sec POC Glucose (mg/dL) (75-99) mg/dL Total Creatine Kinase <20 L <20 L (55-170) U/L 04/25/17 04/25/17 04/25/17 Range/Units 05:46 06:44 11:45 APTT 36.0 H (22.0-30.0) sec POC Glucose (mg/dL) 158 H 155 H (75-99) mg/dL Total Creatine Kinase (55-170) U/L 04/25/17 Range/Units 12:50 APTT 30.8 H (22.0-30.0) sec POC Glucose (mg/dL) (75-99) mg/dL Total Creatine Kinase (55-170) U/L Assessment and Plan Plan: Impression: #1 extensive right lung pulmonary consolidation secondary to pseudomonas aeruginosa. No clear-cut cavitation on the CAT scan of the chest. Most recent sputum analysis showed persistence of pseudomonas aeruginosa and that is also growth of some Aspergillus fungal elements. As such, the patient was taken off to oral ciprofloxacin and patient was placed on IV cefepime and also on Sporanox. Clinically improved. Awaiting ID consultation. Note that the patient's previous sputum analysis showed MRSA however the MRSA did not show on subsequent cultures. #2 advanced COPD #3 Acute exacerbation of severe oxygen dependent chronic obstructive pulmonary disease. #4 chronic smoking, 40 year 2 pack per day smoking however history however quit back in 1991. #5 History of prostate cancer treated with radiation therapy. Currently on Flomax. #6 History of anxiety/depression. Currently on BuSpar and Celexa. #7 Hyperlipidemia. Currently on simvastatin. #8 Elevated troponins, nonspecific, not related to any acute cardiac event Plan Continue same antibiotic coverage. Patient is on a combination of Sporanox and IV cefepime. Awaiting ID consultation. Pulmonary toileting. Bronchodilators and steroids. We'll continue to follow.
[2017-04-25] MEDS ORDERED: CEFEPIME 2 GM in SODIUM CHLORIDE 0.9% 50 ML IVPB SCH (16:00)
[2017-04-25 16:59] LABS: Glucose,Whole Blood 159 mg/dL (75-99)
[2017-04-25] MEDS: MELATONIN 3 MG TABLET PO SCH (20:29)
[2017-04-25] MEDS: ATORVASTATIN 10 MG TAB PO SCH (20:29)
[2017-04-25] MEDS: CITALOPRAM HYDROBROMIDE 20 MG TAB PO SCH (20:29)
[2017-04-25] MEDS: TAMSULOSIN 0.4 MG CAP.ER.24H PO SCH (20:29)
[2017-04-25 20:36] LABS: Glucose,Whole Blood 164 mg/dL (75-99)
--- NOTE | 2017-04-25 21:18 | P.PN ---
Subjective Progress Note Date: 04/25/17 Principal diagnosis: Pneumonia Patient is a 81-year-old male with a known history of COPD on home oxygen, hyperlipidemia history of prostate cancer status post radiation, hypertension and recent Pseudomonas sputum culture with pneumonia during last admission on came to ER with complaints of worsening shortness of breath and hypoxia. Patient follows with Dr. Dennison as an outpatient. Patient was seen by Dr. Dennison on 04/19/2017 and sputum cultures on 04/22/2017 showed Pseudomonas and Aspergillus species. Patient was suspected to have persistent Pseudomonas. Patient was recently sent home on ciprofloxacin as per ID recommendations. Otherwise patient does have worsening shortness of breath and fatigue and generalized weakness and hypoxia with pulse ox dropping down to 84% with nasal cannula at home. Patient came to the hospital for further evaluation. Patient has been having Pseudomonas and MRSA pneumonia since February 2017 Chest x-ray showed worsening right peribronchial infiltrates and chronic pulmonary fibrosis changes and COPD. Troponin 0.044, 0.028 and 0.023 BNP 321 EKG showed sinus tachycardia. Currently saturating at 90% on 6 L nasal cannula. Pulse ox is dropping down to 85% with minimal conversation. 04/25/2017 Patient does have improved shortness of breath. Otherwise patient is still requiring oxygen at 6 L by another cannula CT chest was done showed advanced emphysematous changes and new focal right hilar infiltrate Denied any fever or chills. No nausea vomiting or abdominal pain. Troponins were trending down and cardiology recommended outpatient stress test. Heparin has been DC'd All other review of systems negative for the above Active Medications Albuterol/Ipratropium (Duoneb 0.5 Mg-3 Mg/3 Ml Soln) 3 ml INHALATION RT-Q4H [facility] Last Admin: 04/25/17 19:57 Dose: 3 ml Aspirin (Aspirin) 325 mg PO DAILY [facility] Last Admin: 04/25/17 08:47 Dose: 325 mg Atorvastatin Calcium (Lipitor) 10 mg PO [facility] Last Admin: 04/25/17 20:29 Dose: 10 mg Buspirone HCl (Buspar) 5 mg PO BID [facility] Last Admin: 04/25/17 20:29 Dose: 5 mg Calcium Carbonate/Glycine (Tums) 500 mg PO DAILY [facility] Last Admin: 04/25/17 08:47 Dose: 500 mg Citalopram Hydrobromide (Celexa) 40 mg PO [facility] Last Admin: 04/25/17 20:29 Dose: 40 mg Furosemide (Lasix) 40 mg PO DAILY [facility] Last Admin: 04/25/17 08:47 Dose: 40 mg Guaifenesin/Dextromethorphan (Mucinex Dm) 1 each PO DAILY [facility] Last Admin: 04/25/17 08:48 Dose: 1 each Heparin Sodium (Porcine) (Heparin) 5,000 unit SQ Q12HR [facility] Cefepime HCl 2 gm/ Sodium (Chloride) 50 mls @ 100 mls/hr IVPB Q8HR [facility] Last Admin: 04/25/17 18:25 Dose: 100 mls/hr Insulin Aspart (Novolog) 0 unit SQ ACHS [facility] PRN Reason: Protocol Last Admin: 04/25/17 20:38 Dose: 3 unit Itraconazole (Sporanox) 200 mg PO DAILY [facility] Last Admin: 04/25/17 11:57 Dose: 200 mg Melatonin (Melatonin) 3 mg PO [facility] Last Admin: 04/25/17 20:29 Dose: 3 mg Methylprednisolone Sodium Succinate (Solu-Medrol) 60 mg IV Q6HR [facility] Last Admin: 04/25/17 18:26 Dose: 60 mg Miscellaneous Information (Rx Info: Iv Contrast Was Given) 1 each MISCELLANE DAILY PRN PRN Reason: Per Protocol Stop: 04/26/17 17:46 Multivitamins (Theragran) 1 each PO DAILY [facility] Last Admin: 04/25/17 08:47 Dose: 1 each Nitroglycerin (Nitrostat) 0.4 mg SUBLINGUAL Q5M PRN PRN Reason: Chest Pain Nystatin (Mycostatin Oral Susp) 400,000 unit PO QID [facility] Last Admin: 04/25/17 20:29 Dose: 400,000 unit Tamsulosin HCl (Flomax) 0.4 mg PO HS [facility] Last Admin: 04/25/17 20:29 Dose: 0.4 mg Objective - Vital Signs Vital signs: Vital Signs Temp 97.3 F L 04/25/17 16:00 Pulse 95 04/25/17 20:07 Resp 18 04/25/17 16:00 BP 130/59 04/25/17 16:00 Pulse Ox 90 L 04/25/17 16:00 Intake & Output 04/25/17 04/25/17 04/26/17 06:59 18:59 06:59 Intake Total 443.76 1247.36 163.304 Output Total 225 200 50 Balance 218.76 1047.36 113.304 Weight 74 kg Intake: Intake, IV Titration 107.76 287.36 163.304 Amount Heparin Sod,Pork in 0.45% 107.76 287.36 163.304 NaCl 25,000 unit In 0.45 % NaCl 1 500ml.bag @ 12 UNITS/KG/HR 17.96 mls/hr IV .Q24H [facility] Rx#: [id number] Oral 336 960 Output: Urine 225 200 50 Other: # Voids 1 1 # Bowel Movements 1 - Exam Patient is lying in the bed comfortably, no acute distress, awake alert and oriented.. HEENT: Normocephalic. Neck is supple. Pupils reactive. Nostrils clear. Oral cavity is moist. Ears reveal no drainage. Neck reveals no JVD, carotid bruits, or thyromegaly. CHEST EXAMINATION: Trachea is central. Symmetrical expansion. Right basilar rhonchi and minimal expiratory wheeze. Nonlabored. CARDIAC: Normal S1, S2 with no gallops. No murmurs ABDOMEN: Soft. Bowel sounds normal. No organomegaly. No abdominal bruits. Extremities: reveal no edema. No clubbing or cyanosis Neurologically awake, alert, oriented x3 with well-coordinated movements. No focal deficits noted Skin: No rash or skin lesions. Psychiatric: Coperative. Nonsuicidal Musculoskeletal: No joint swelling or deformity. Normal range of motion. - Labs CBC & Chem 7: 04/24/17 12:10 04/24/17 12:10 Labs: Abnormal Lab Results - Last 24 Hours (Table) 04/25/17 04/25/17 04/25/17 Range/Units 00:42 00:42 05:46 APTT 31.9 H (22.0-30.0) sec POC Glucose (mg/dL) 158 H (75-99) mg/dL Total Creatine Kinase <20 L (55-170) U/L 04/25/17 04/25/17 04/25/17 Range/Units 06:44 11:45 12:50 APTT 36.0 H 30.8 H (22.0-30.0) sec POC Glucose (mg/dL) 155 H (75-99) mg/dL Total Creatine Kinase (55-170) U/L 04/25/17 04/25/17 04/25/17 Range/Units 16:57 19:41 20:33 APTT 37.5 H (22.0-30.0) sec POC Glucose (mg/dL) 159 H 164 H (75-99) mg/dL Total Creatine Kinase (55-170) U/L Assessment and Plan Assessment: Acute on chronic hypoxic respiratory failure secondary to worsening right perihilar infiltrates with recent sputum cultures showing Pseudomonas and Aspergillus species on 04/22/2017. Right lung pneumonia due to Pseudomonas aeruginosa and MRSA Acute COPD exacerbation Elevated troponin. Possible non-ST elevated [place] History of Pseudomonas and MRSA pneumonia in February 2017 COPD severe with an FEV1 of 45% predicted at baseline prostate cancer treated by radiation therapy chronic anxiety/depression hyperlipidemia maintained on Zocor DVT prophylaxis Plan: Patient be continued on antibiotics in the form of cefepime and Itraconazole. Pulmonary is following. ID was consulted as well. Elevated troponin is not consistent with acute coronary syndrome. Patient be continued on IV steroids and breathing treatments. Continue with oxygen therapy and follow closely. Prognosis is guarded with multiple medical problems and comorbid conditions and persistent pneumonia. Further recommendations based on the clinical course. Time with Patient: Greater than 30
[2017-04-25] MEDS: HEPARIN SODIUM,PORCINE 5,000 UNIT/ML 1 ML VIAL SQ SCH (21:40)
--- NOTE | 2017-04-25 23:20 | P.CONS ---
History of Present Illness - Reason for Consult Consult date: 04/25/17 - Chief Complaint Shortness of breath - History of Present Illness Pleasant 81 by mouth male in underlying COPD that is oxygen intermittently steroid-dependent is had significant difficulties over the last few months with recurrent pneumonia. Review reveals evidence of Pseudomonas isolate from his sputum a few months ago that was quite susceptible. He then was hospitalized it was thought evidence of the pseudomonas as well as MRSA in his sputum was removed with vancomycin and ciprofloxacin. The patient relates he had some improvement but now is having significant worsening of his status. Became much more short of breath week difficulty with ambulating and ADLs intensely presented back to hospital. As evidence of ongoing Pseudomonas pneumonia and with the lack of improvement the infectious diseases consultation was requested. The patient weight is feeling slightly better today since receiving current interventions include oxygen therapy, respiratory treatments, steroid therapy and alteration of antibiotic therapy. He does have cough but denies significant sputum production and does not have hemoptysis. Energy level is poor. Review of Systems Patient relates he was feeling quite poorly with increasing shortness of breath HEENT:Denies headache or acute visual change. Denies sinus or mouth discomforts. Denies neck stiffness or pain. Denies significant oral cavity pain. Denies difficulty on swallowing. Lungs: As per the HPI increasing shortness of breath no hemoptysis Cardiovascular: Denies , chest pain, chest wall pain, orthopnea, or syncope. But does have dyspnea on exertion Gastrointestinal:Denies nausea, vomiting, diarrhea, constipation, hematemesis, melena, hematochezia. No no significant change of bowel habit noticed. Musculoskeletal: denies significant myalgias or arthralgias. No new joint swelling. Denies new back pain. Skin: Denies new rash or lesions. No new ulcers or wounds are related.. Neuro: Denies headache or visual change. Denies any new onset weakness or difficulty with ambulation. Denies falls or seizures. Psychiatric:Denies anxiety or depression. Endocrine: Worsening fatigue and weight loss have occurred Past Medical History Past Medical History: Cancer, COPD, Hyperlipidemia, Pneumonia, Prostate Disorder Additional Past Medical History / Comment(s): Pt recently admitted on 02/23/17 with bilateral pneumonia. Other hx: COPD, pneumonia with sepsis, 2007 prostate cancer treated by radiation therapy, skin cancer with removal, normocytic anemia, cervical DDD. 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 Past Anesthesia/Blood Transfusion Reactions: No Reported Reaction Past Psychological History: Anxiety, Depression Additional Psychological History / Comment(s): lives the family home with his . Used to smoke 2 packs per day for 40 years. Retired labor. 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 No recent international travel. No pets in the home Smoking Status: Former smoker Past Alcohol Use History: None Reported Past Drug Use History: None Reported - Past Family History Mother Family Medical History: No Reported History Father Family Medical History: Cancer Additional Family Medical History / Comment(s): spine CA which spread to bone CA Medications and Allergies Home Medications and Allergies Comment(s): Current Medications Albuterol/Ipratropium (Duoneb 0.5 Mg-3 Mg/3 Ml Soln) 3 ml INHALATION RT-Q4H [facility] Last Admin: 04/25/17 19:57 Dose: 3 ml Aspirin (Aspirin) 325 mg PO DAILY [facility] Last Admin: 04/25/17 08:47 Dose: 325 mg Atorvastatin Calcium (Lipitor) 10 mg PO HS [facility] Last Admin: 04/25/17 20:29 Dose: 10 mg Buspirone HCl (Buspar) 5 mg PO BID [facility] Last Admin: 04/25/17 20:29 Dose: 5 mg Calcium Carbonate/Glycine (Tums) 500 mg PO DAILY [facility] Last Admin: 04/25/17 08:47 Dose: 500 mg Citalopram Hydrobromide (Celexa) 40 mg PO HS [facility] Last Admin: 04/25/17 20:29 Dose: 40 mg Furosemide (Lasix) 40 mg PO DAILY [facility] Last Admin: 04/25/17 08:47 Dose: 40 mg Guaifenesin/Dextromethorphan (Mucinex Dm) 1 each PO DAILY [facility] Last Admin: 04/25/17 08:48 Dose: 1 each Heparin Sodium (Porcine) (Heparin) 5,000 unit SQ Q12HR [facility] Last Admin: 04/25/17 21:40 Dose: Not Given Cefepime HCl 2 gm/ Sodium (Chloride) 50 mls @ 100 mls/hr IVPB Q8HR [facility] Last Admin: 04/25/17 18:25 Dose: 100 mls/hr Insulin Aspart (Novolog) 0 unit SQ ACHS [facility] PRN Reason: Protocol Last Admin: 04/25/17 20:38 Dose: 3 unit Itraconazole (Sporanox) 200 mg PO DAILY [facility] Last Admin: 04/25/17 11:57 Dose: 200 mg Melatonin (Melatonin) 3 mg PO [facility] Last Admin: 04/25/17 20:29 Dose: 3 mg Methylprednisolone Sodium Succinate (Solu-Medrol) 60 mg IV Q6HR [facility] Last Admin: 04/25/17 18:26 Dose: 60 mg Miscellaneous Information (Rx Info: Iv Contrast Was Given) 1 each MISCELLANE DAILY PRN PRN Reason: Per Protocol Stop: 04/26/17 17:46 Multivitamins (Theragran) 1 each PO DAILY [facility] Last Admin: 04/25/17 08:47 Dose: 1 each Nitroglycerin (Nitrostat) 0.4 mg SUBLINGUAL Q5M PRN PRN Reason: Chest Pain Nystatin (Mycostatin Oral Susp) 400,000 unit PO QID [facility] Last Admin: 04/25/17 20:29 Dose: 400,000 unit Tamsulosin HCl (Flomax) 0.4 mg PO [facility] Last Admin: 04/25/17 20:29 Dose: 0.4 mg Home Medications Medication Instructions Recorded Confirmed Type Aspirin 81 mg PO 06/02/14 04/24/17 History Fluticasone/Salmeterol [Advair 1 puff INHALATION RT-BID 06/02/14 04/24/17 History 500-50 Diskus] Tamsulosin [Flomax] 0.4 mg PO 06/02/14 04/24/17 History Tiotropium [place] [Spiriva] 1 cap INHALATION RT-DAILY 06/02/14 04/24/17 History Simvastatin [Zocor] 10 mg PO 08/27/14 04/24/17 History guaiFENesin-DM 600/30MG [Mucinex 1 tab PO DAILY 02/13/16 04/24/17 History Dm] Calcium Carbonate [Calcium] 600 mg PO DAILY 02/24/17 04/24/17 History Melatonin 3 mg PO HS 02/24/17 04/24/17 History busPIRone HCl [Buspar] 5 mg PO BID 02/24/17 04/24/17 History Albuterol Nebulized [Ventolin 2.5 mg INHALATION RT-QID 04/01/17 04/24/17 History Nebulized] predniSONE 10 mg PO DAILY #30 tab 04/12/17 04/24/17 Rx Ciprofloxacin HCl [Cipro] 500 mg PO Q12HR 04/24/17 04/24/17 History Citalopram Hydrobromide [CeleXA] 40 mg PO HS 04/24/17 04/24/17 History Furosemide [Lasix] 40 mg PO DAILY 04/24/17 04/24/17 History Multivit-Min/FA/Lycopen/Lutein 1 tab PO DAILY 04/24/17 04/24/17 History [Centrum Silver Tablet] Nystatin 100,000 Unit/ml Susp 4 ml PO QID 04/24/17 04/24/17 History [Mycostatin Oral Susp] Allergies Allergy/AdvReac Type Severity Reaction Status Date / Time No Known Allergies Allergy Verified 04/24/17 12:16 Physical Exam Vitals: Vital Signs Temp Pulse Pulse Resp BP BP Pulse Ox 04/25/17 20:07 95 04/25/17 20:00 108 H 18 119/58 92 L 04/25/17 19:57 94 04/25/17 16:17 93 04/25/17 16:07 92 04/25/17 16:00 97.3 F L 94 18 130/59 90 L 04/25/17 13:01 102 H 16 04/25/17 12:51 100 16 04/25/17 12:00 97.5 F L 102 H 18 102/70 91 L 04/25/17 09:00 104 H 04/25/17 08:45 96 91 L 04/25/17 08:00 97.4 F L 100 16 115/61 91 L 04/25/17 04:56 100 04/25/17 04:47 104 H 04/25/17 04:00 97.6 F 97 20 98/53 92 L 04/25/17 00:00 97.6 F 107 H 20 104/57 92 L 04/24/17 23:34 103 H 04/24/17 23:28 92 L 04/24/17 23:25 101 H Intake and Output 04/25/17 04/25/17 04/26/17 14:59 22:59 06:59 Intake Total 1007.36 403.304 Output Total 200 50 Balance 807.36 353.304 Intake: Intake, IV Titration 287.36 163.304 Amount Heparin Sod,Pork in 0.45% 287.36 163.304 NaCl 25,000 unit In 0.45 % NaCl 1 500ml.bag @ 12 UNITS/KG/HR 17.96 mls/hr IV .Q24H [facility] Rx#: [id number] Oral 720 240 Output: Urine 200 50 Other: # Voids 1 1 # Bowel Movements 1 81-year-old gentleman who appears to be comfortable although he rapidly become short of breath with exertion HEENT: Anicteric conjunctiva are pink and moist nasal mucosa grossly intact without significant lesions, there is no thrush. Neck: The neck is supple without significant lymphadenopathy or thyromegaly. Lungs: Symmetric air entry is noted. Basilar crackles are heard no significant dullness or egophony is noted Heart: Irregular with an audible S1 and S2 soft S4 no distinct murmur click or rub is noted PMI nondisplaced Abdomen: Positive bowel sounds soft and nontender without palpable masses or organomegaly. There was no guarding or rebound. Extremities: The upper extremities have excellent pulses they are symmetric, no significant petechiae or telangiectasia. No splinter hemorrhages were noted. Laboratories just have trace pedal edema. Peripheral pulses 2+ and symmetric no open lesions are seen on either lower extremity Neuro: Awake alert oriented to person place and time. There are no acute new gross focal sensory motor deficits. Results CBC & Chem 7: 04/24/17 12:10 04/24/17 12:10 Labs: Abnormal Lab Results - Last 24 Hours (Table) 04/25/17 04/25/17 04/25/17 Range/Units 00:42 00:42 05:46 APTT 31.9 H (22.0-30.0) sec POC Glucose (mg/dL) 158 H (75-99) mg/dL Total Creatine Kinase <20 L (55-170) U/L 04/25/17 04/25/17 04/25/17 Range/Units 06:44 11:45 12:50 APTT 36.0 H 30.8 H (22.0-30.0) sec POC Glucose (mg/dL) 155 H (75-99) mg/dL Total Creatine Kinase (55-170) U/L 04/25/17 04/25/17 04/25/17 Range/Units 16:57 19:41 20:33 APTT 37.5 H (22.0-30.0) sec POC Glucose (mg/dL) 159 H 164 H (75-99) mg/dL Total Creatine Kinase (55-170) U/L Microbiology - Last 24 Hours (Table) 04/24/17 18:56 Blood Culture - Preliminary Blood No Growth after 24 hours Laboratory Results WBC 6.5 k/uL (3.8-10.6) 04/24/17 12:10 RBC 4.23 m/uL (4.30-5.90) L 04/24/17 12:10 Hgb 11.8 gm/dL (13.0-17.5) L 04/24/17 12:10 Hct 36.0 % (39.0-53.0) L 04/24/17 12:10 MCV 85.2 fL (80.0-100.0) D 04/24/17 12:10 MCH 28.0 pg (25.0-35.0) 04/24/17 12:10 MCHC 32.9 g/dL (31.0-37.0) 04/24/17 12:10 RDW 17.1 % (11.5-15.5) H 04/24/17 12:10 Plt Count 103 k/uL (150-450) L D 04/24/17 12:10 Neutrophils % 87 % 04/24/17 12:10 Lymphocytes % 6 % 04/24/17 12:10 Monocytes % 4 % 04/24/17 12:10 Eosinophils % 2 % 04/24/17 12:10 Basophils % 0 % 04/24/17 12:10 Neutrophils # 5.7 k/uL (1.3-7.7) 04/24/17 12:10 Lymphocytes # 0.4 k/uL (1.0-4.8) L 04/24/17 12:10 Monocytes # 0.2 k/uL (0-1.0) 04/24/17 12:10 Eosinophils # 0.2 k/uL (0-0.7) 04/24/17 12:10 Basophils # 0.0 k/uL (0-0.2) 04/24/17 12:10 Anisocytosis Slight 04/24/17 12:10 PT 9.7 sec (9.0-12.0) 04/24/17 12:10 INR 1.0 (<1.2) 04/24/17 12:10 APTT 37.5 sec (22.0-30.0) H 04/25/17 19:41 Sodium 136 mmol/L (137-145) L 04/24/17 12:10 Potassium 4.7 mmol/L (3.5-5.1) 04/24/17 12:10 Chloride 100 mmol/L (98-107) 04/24/17 12:10 Carbon Dioxide 28 mmol/L (22-30) 04/24/17 12:10 Anion Gap 8 mmol/L 04/24/17 12:10 BUN 25 mg/dL (9-20) H 04/24/17 12:10 Creatinine 0.70 mg/dL (0.66-1.25) 04/24/17 12:10 Est GFR (CKD-EPI)AfAm >90 (>60 ml/min/1.73 sqM) 04/24/17 12:10 Est GFR (CKD-EPI)NonAf 89 (>60 ml/min/1.73 sqM) 04/24/17 12:10 Glucose 120 mg/dL (74-99) H 04/24/17 12:10 POC Glucose (mg/dL) 164 mg/dL (75-99) H 04/25/17 20:33 POC Glu [employer] Environment Safety [employer] KATE Valeria Perera 04/25/17 20:[address] Glu mg/dL 108 04/24/17 12:10 Hemoglobin A1c 5.4 % (4.0-6.0) 04/24/17 12:10 Calcium 8.3 mg/dL (8.4-10.2) L 04/24/17 12:10 Magnesium 1.9 mg/dL (1.6-2.3) 04/24/17 12:10 Total Bilirubin 1.1 mg/dL (0.2-1.3) 04/24/17 12:10 AST 49 U/L (17-59) 04/24/17 12:10 ALT 29 U/L (21-72) 04/24/17 12:10 Alkaline Phosphatase 50 U/L (38-126) 04/24/17 12:10 Total Creatine Kinase <20 U/L (55-170) L 04/25/17 00:42 CK-MB (CK-2) 0.8 ng/mL (0.0-2.4) 04/25/17 00:42 CK-MB (CK-2) Rel Index 04/25/17 00:42 Troponin I 0.023 ng/mL (0.000-0.034) 04/25/17 00:42 NT-Pro-B Natriuret Pep 321 pg/mL 04/24/17 12:10 Total Protein 6.0 g/dL (6.3-8.2) L 04/24/17 12:10 Albumin 3.0 g/dL (3.5-5.0) L 04/24/17 12:10 Triglycerides 80 mg/dL (<150) 04/25/17 00:42 Cholesterol 121 mg/dL (<200) 04/25/17 00:42 LDL Cholesterol, Calc 63 mg/dL (0-99) 04/25/17 00:42 HDL Cholesterol 42 mg/dL (40-60) 04/25/17 00:42 Microbiology 04/24/17 18:56 Blood Blood Culture - Preliminary No Growth after 24 hours 04/22/2017 sputum culture with pseudomonas aeruginosa, and few Aspergillus fumigatus. Assessment and Plan (1) Acute exacerbation of chronic obstructive airways disease Current Visit: Yes Status: Acute Code(s): J44.1 - CHRONIC OBSTRUCTIVE PULMONARY DISEASE W (ACUTE) EXACERBATION SNOMED Code(s): 272051215 (2) Gram-negative pneumonia Current Visit: Yes Status: Acute Code(s): J15.6 - PNEUMONIA DUE TO OTHER GRAM-NEGATIVE BACTERIA SNOMED Code(s): 779614405 (3) Pneumonia due to Pseudomonas aeruginosa Narrative/Plan: 81-year-old male that has extensive underlying pulmonary disease with COPD that is oxygen and intermittently steroid-dependent has had difficulty with ongoing pulmonary infection since February of this year. Pseudomonas aeruginosa, several species have been noted and have now become more resistant no longer susceptible to oral therapy. He was started on cefepime however laboratories now relating to an intermediate susceptibility and this will be transitioned to ceftazadime in antipseudomonal dose. The patient will likely need to go home with intravenous antibiotic therapy to complete the treatment of his somewhat refractory pseudomonas pneumonia. He fortunately is feeling slightly better at this point in time with current interventions. But is still very short of breath with any exertion and is still having significant cough but no hemoptysis. Patient was having some chest pain has been seen by cardiology and is not thought to have significant new coronary event. Continue supportive care and will be making arrangements for his antibiotic therapy at discharge. Current Visit: Yes Status: Acute Code(s): J15.1 - PNEUMONIA DUE TO PSEUDOMONAS SNOMED Code(s): 98945199
[2017-04-26 03:21] LABS: Anion Gap 7 mmol/L; Anisocytosis Slight; Basophils % (A) 0 %; Blood Urea Nitrogen 36 mg/dL (9-20); Calcium 8.2 mg/dL (8.4-10.2); Carbon Dioxide 23 mmol/L (22-30); Chloride 106 mmol/L (98-107); Eosinophils % (A) 0 %; Glucose 155 mg/dL (74-99); HCT 32.2 % (39.0-53.0); HGB 10.2 gm/dL (13.0-17.5); Hypochromasia Moderate; Lymphocytes # (A) 0.4 k/uL (1.0-4.8); Lymphocytes % (A) 6 %; MCH 27.7 pg (25.0-35.0); MCHC 31.7 g/dL (31.0-37.0); MCV 87.5 fL (80.0-100.0); Mean Platelet Volume 8.6; Monocytes # (A) 0.2 k/uL (0-1.0); Monocytes % (A) 3 %; Neutrophils # (A) 6.1 k/uL (1.3-7.7); Neutrophils % (A) 90 %; Platelet Count 123 k/uL (150-450); Potassium 4.4 mmol/L (3.5-5.1); RBC 3.68 m/uL (4.30-5.90); Sodium 136 mmol/L (137-145); WBC 6.7 k/uL (3.8-10.6)
[2017-04-26] MEDS: IPRATROPIUM-ALBUTEROL 3 ML NEB INHALATION SCH ×5 (04:39→19:43)
[2017-04-26 06:06] LABS: Glucose,Whole Blood 191 mg/dL (75-99)
[2017-04-26] MEDS: INSULIN ASPART 100 UNIT/ML 1 ML 10 ML VIAL SQ SCH ×4 (06:53→21:04)
[2017-04-26] MEDS: methylPREDNISolone SOD SUCCI 125 MG/2 ML VIAL IV SCH ×3 (06:53→18:06)
[2017-04-26] MEDS: ITRACONAZOLE 100 MG CAP PO SCH (09:00)
[2017-04-26] MEDS: FUROSEMIDE 40 MG TAB PO SCH ×3 (09:00→12:42)
[2017-04-26] MEDS: NYSTATIN 100,000 UNIT/ML SUSP 500,000 UNIT/5 ML CUP PO SCH ×4 (09:00→21:04)
[2017-04-26] MEDS: busPIRone HCl 5 MG TAB PO SCH ×2 (09:00→21:05)
[2017-04-26] MEDS: ASPIRIN 325 MG TAB PO SCH (09:02)
[2017-04-26] MEDS: HEPARIN SODIUM,PORCINE 5,000 UNIT/ML 1 ML VIAL SQ SCH ×2 (09:02→21:04)
[2017-04-26] MEDS: CALCIUM CARBONATE 500 MG CHEWABLE PO SCH (09:02)
[2017-04-26] MEDS: guaiFENesin-DM 600/30MG 1 EACH TAB.ER.12H PO SCH (09:04)
[2017-04-26] MEDS: MULTIVITAMINS, THERA 1 EACH TAB PO SCH (09:05)
[2017-04-26 11:19] LABS: Glucose,Whole Blood 119 mg/dL (75-99)
[2017-04-26 16:04] LABS: Glucose,Whole Blood 140 mg/dL (75-99)
--- NOTE | 2017-04-26 16:19 | P.PN ---
Subjective Progress Note Date: 04/26/17 On 04/25/2017 I'm seeing this patient for a follow-up regarding his acute COPD exacerbation. As mentioned earlier the patient has advanced COPD. The patient was hospitalized for an extensive right lung pneumonia back in March 2017 and the sputum was growing Pseudomonas. He was treated as an inpatient. He was discharged home on oral ciprofloxacin. He continued to have positive pseudomonas aeruginosa in his sputum. He was having worsening shortness of breath and his COPD was exacerbating. Based on that the patient had another sputum analysis an outpatient basis and the patient was found to have Pseudomonas and Aspergillus. I was concerned of cavitation for that reason a ordered a CAT scan of the chest and I started the patient on a combination of IV cefepime and oral Sporanox. ID consultation is still pending for now. Meanwhile, the CAT scan of the chest was done and showed extensive and advanced centrilobular emphysema scattered areas of fibrosis in addition to consolidation of the right upper lobe consistent with pneumonia. No active cavitation was seen. Small mid lung pleural fluid was also noted. Clinically the patient is feeling better. The patient is less short of breath compared to yesterday. He is still on 4 L of oxygen nasal cannula. He is on bronchodilators and steroids. Cough and congestion has subsided compared to yesterday. On 04/26/2017, the patient is being seen for a follow-up. The patient is feeling much better compared to yesterday. His progressively improving. His cough is congested and she is not producing much of sputum. No fever chills or night sweats. No chest pain. The patient was seen by infectious disease. There is consensus is that the Pseudomonas was cultured earlier was resistant to oral ciprofloxacin. The patient was ultimately switched to IV Fortaz based on the available [place] sees. I discussed the case with Dr. Marshall and we decided also to stop the Sporanox. The patient is afebrile. The patient is hemodynamically stable. The patient on IV Solu-Medrol. The patient will need a decline along with outpatient antibiotic treatment. He is doing well. No chest pain. No swelling lower extremities. No other complaint otherwise for now. Objective - Vital Signs Vital signs: Vital Signs Temp 97.3 F L 04/26/17 12:00 Pulse 93 04/26/17 15:54 Resp 18 04/26/17 12:00 BP 125/58 04/26/17 08:00 Pulse Ox 93 L 04/26/17 12:00 Intake & Output 04/25/17 04/26/17 04/26/17 18:59 06:59 18:59 Intake Total 1247.36 163.304 480 Output Total 259 662 9145 Balance 1047.36 -111.696 -520 Weight 71 kg Intake: Intake, IV Titration 287.36 163.304 Amount Heparin Sod,Pork in 0.45% 287.36 163.304 NaCl 25,000 unit In 0.45 % NaCl 1 500ml.bag @ 12 UNITS/KG/HR 17.96 mls/hr IV .Q24H [facility] Rx#: [id number] Oral 960 480 Output: Urine 522 553 1814 Other: # Voids 1 1 # Bowel Movements 1 - Exam GENERAL EXAM: Alert, fairly comfortable in no acute respiratory distress. EYES: Normal reaction of pupils, equal size. NOSE: Clear with pink turbinates. THROAT: No erythema or exudates. NECK: No masses, no JVD. CHEST: No chest wall deformity. LUNGS: Equal air entry coarse crackles in the bilateral posterior bases. Diminished. CVS: S1 and S2 normal with no audible murmur, regular rhythm. ABDOMEN: No hepatosplenomegaly, normal bowel sounds, no guarding or rigidity. SPINE: No scoliosis or deformity SKIN: No rashes CENTRAL NERVOUS SYSTEM: No focal deficits, tone is normal in all 4 extremities. EXTREMITIES: There is no peripheral edema. No clubbing, no cyanosis. Peripheral pulses are intact. - Labs CBC & Chem 7: 04/26/17 02:37 04/26/17 02:37 Labs: Abnormal Lab Results - Last 24 Hours (Table) 04/25/17 04/25/17 04/25/17 Range/Units 16:57 19:41 20:33 RBC (4.30-5.90) m/uL Hgb (13.0-17.5) gm/dL Hct (39.0-53.0) % RDW (11.5-15.5) % Plt Count (150-450) k/uL Lymphocytes # (1.0-4.8) k/uL APTT 37.5 H (22.0-30.0) sec Sodium (137-145) mmol/L BUN (9-20) mg/dL Creatinine (0.66-1.25) mg/dL Glucose (74-99) mg/dL POC Glucose (mg/dL) 159 H 164 H (75-99) mg/dL Calcium (8.4-10.2) mg/dL 04/26/17 04/26/17 04/26/17 Range/Units 02:37 02:37 02:37 RBC 3.68 L (4.30-5.90) m/uL Hgb 10.2 L (13.0-17.5) gm/dL Hct 32.2 L (39.0-53.0) % RDW 17.0 H (11.5-15.5) % Plt Count 123 L (150-450) k/uL Lymphocytes # 0.4 L (1.0-4.8) k/uL APTT 42.6 H (22.0-30.0) sec Sodium 136 L (137-145) mmol/L BUN 36 H (9-20) mg/dL Creatinine 0.60 L (0.66-1.25) mg/dL Glucose 155 H (74-99) mg/dL POC Glucose (mg/dL) (75-99) mg/dL Calcium 8.2 L (8.4-10.2) mg/dL 04/26/17 04/26/17 04/26/17 Range/Units 06:03 11:16 16:02 RBC (4.30-5.90) m/uL Hgb (13.0-17.5) gm/dL Hct (39.0-53.0) % RDW (11.5-15.5) % Plt Count (150-450) k/uL Lymphocytes # (1.0-4.8) k/uL APTT (22.0-30.0) sec Sodium (137-145) mmol/L BUN (9-20) mg/dL Creatinine (0.66-1.25) mg/dL Glucose (74-99) mg/dL POC Glucose (mg/dL) 191 H 119 H 140 H (75-99) mg/dL Calcium (8.4-10.2) mg/dL Microbiology - Last 24 Hours (Table) 04/24/17 18:56 Blood Culture - Preliminary Blood No Growth after 24 hours Assessment and Plan Plan: Impression: #1 extensive right lung pulmonary consolidation secondary to pseudomonas aeruginosa. No clear-cut cavitation on the CAT scan of the chest. Most recent sputum analysis showed persistence of pseudomonas aeruginosa and that is also growth of some Aspergillus fungal elements. As such, the patient was taken off to oral ciprofloxacin and patient was placed on IV cefepime and also on Sporanox. Clinically improved. Awaiting ID consultation. Note that the patient's previous sputum analysis showed MRSA however the MRSA did not show on subsequent cultures. #2 advanced COPD #3 Acute exacerbation of severe oxygen dependent chronic obstructive pulmonary disease. #4 chronic smoking, 40 year 2 pack per day smoking however history however quit back in 1991. #5 History of prostate cancer treated with radiation therapy. Currently on Flomax. #6 History of anxiety/depression. Currently on BuSpar and Celexa. #7 Hyperlipidemia. Currently on simvastatin. #8 Elevated troponins, nonspecific, not related to any acute cardiac event Plan Clinically the patient is improving. IV cefepime was discontinued and the patient was switched IV Fortaz. We'll discontinue the Sporanox. Case was discussed with infectious disease. Clinically improving. We'll taper the steroids as of tomorrow. We'll continue the bronchodilators. Outpatient antibiotics. As such the patient will need a PICC line insertion. We'll continue to follow. We'll consult interventional radiology for PICC line insertion.
[2017-04-26 20:35] LABS: Glucose,Whole Blood 195 mg/dL (75-99)
[2017-04-26] MEDS: MELATONIN 3 MG TABLET PO SCH (21:05)
[2017-04-26] MEDS: TAMSULOSIN 0.4 MG CAP.ER.24H PO SCH (21:05)
[2017-04-26] MEDS: ATORVASTATIN 10 MG TAB PO SCH (21:05)
[2017-04-26] MEDS: CITALOPRAM HYDROBROMIDE 20 MG TAB PO SCH (21:05)
--- NOTE | 2017-04-26 22:33 | P.PN ---
Subjective Progress Note Date: 04/26/17 Principal diagnosis: Gram-negative pneumonia Pleasant 81 by mouth male in underlying COPD that is oxygen intermittently steroid-dependent is had significant difficulties over the last few months with recurrent pneumonia. Review reveals evidence of Pseudomonas isolate from his sputum a few months ago that was quite susceptible. He then was hospitalized it was thought evidence of the pseudomonas as well as MRSA in his sputum was removed with vancomycin and ciprofloxacin. The patient relates he had some improvement but now is having significant worsening of his status. Became much more short of breath week difficulty with ambulating and ADLs intensely presented back to hospital. As evidence of ongoing Pseudomonas pneumonia and with the lack of improvement the infectious diseases consultation was requested. The patient is feeling slightly better today since receiving current interventions include oxygen therapy, respiratory treatments, steroid therapy and alteration of antibiotic therapy. He does have cough but denies significant sputum production and does not have hemoptysis. Energy level is poor. 04/26/2017 patient is feeling somewhat better today. Family members are present including his . She is somewhat concerned about his overall status because of the severity of his pneumonia. We discussed that we know the pathogen that he has adequate antibiotic therapy with expectations of further improvement. Because of the current bacteria IV antibiotic therapy were required for home therapy. 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 Objective - Vital Signs Vital signs: Vital Signs Temp 97.9 F 04/26/17 16:00 Pulse 90 04/26/17 19:54 Resp 18 04/26/17 16:00 BP 135/63 04/26/17 16:00 Pulse Ox 96 04/26/17 16:00 Intake & Output 04/26/17 04/26/17 04/27/17 06:59 18:59 06:59 Intake Total 163.304 840 Output Total 275 1000 Balance -111.696 -160 Weight 71 kg Intake: Intake, IV Titration 163.304 Amount Heparin Sod,Pork in 0.45% 163.304 NaCl 25,000 unit In 0.45 % NaCl 1 500ml.bag @ 12 UNITS/KG/HR 17.96 mls/hr IV .Q24H [facility] Rx#: [id number] Oral 840 Output: Urine 275 1000 Other: # Voids 1 - Exam 81-year-old gentleman who appears to be comfortable although he rapidly become short of breath with exertion HEENT: Anicteric conjunctiva are pink and moist nasal mucosa grossly intact without significant lesions, there is no thrush. Neck: The neck is supple without significant lymphadenopathy or thyromegaly. Lungs: Symmetric air entry is noted. Basilar crackles are heard no significant dullness or egophony is noted Heart: Irregular with an audible S1 and S2 soft S4 no distinct murmur click or rub is noted PMI nondisplaced Abdomen: Positive bowel sounds soft and nontender without palpable masses or organomegaly. There was no guarding or rebound. Extremities: The upper extremities have excellent pulses they are symmetric, no significant petechiae or telangiectasia. No splinter hemorrhages were noted. Laboratories just have trace pedal edema. Peripheral pulses 2+ and symmetric no open lesions are seen on either lower extremity Neuro: Awake alert oriented to person place and time. There are no acute new gross focal sensory motor deficits. - Labs CBC & Chem 7: 04/26/17 02:37 04/26/17 02:37 Labs: Abnormal Lab Results - Last 24 Hours (Table) 04/26/17 04/26/17 04/26/17 Range/Units 02:37 02:37 02:37 RBC 3.68 L (4.30-5.90) m/uL Hgb 10.2 L (13.0-17.5) gm/dL Hct 32.2 L (39.0-53.0) % RDW 17.0 H (11.5-15.5) % Plt Count 123 L (150-450) k/uL Lymphocytes # 0.4 L (1.0-4.8) k/uL APTT 42.6 H (22.0-30.0) sec Sodium 136 L (137-145) mmol/L BUN 36 H (9-20) mg/dL Creatinine 0.60 L (0.66-1.25) mg/dL Glucose 155 H (74-99) mg/dL POC Glucose (mg/dL) (75-99) mg/dL Calcium 8.2 L (8.4-10.2) mg/dL 04/26/17 04/26/17 04/26/17 Range/Units 06:03 11:16 16:02 RBC (4.30-5.90) m/uL Hgb (13.0-17.5) gm/dL Hct (39.0-53.0) % RDW (11.5-15.5) % Plt Count (150-450) k/uL Lymphocytes # (1.0-4.8) k/uL APTT (22.0-30.0) sec Sodium (137-145) mmol/L BUN (9-20) mg/dL Creatinine (0.66-1.25) mg/dL Glucose (74-99) mg/dL POC Glucose (mg/dL) 191 H 119 H 140 H (75-99) mg/dL Calcium (8.4-10.2) mg/dL 04/26/17 Range/Units 20:33 RBC (4.30-5.90) m/uL Hgb (13.0-17.5) gm/dL Hct (39.0-53.0) % RDW (11.5-15.5) % Plt Count (150-450) k/uL Lymphocytes # (1.0-4.8) k/uL APTT (22.0-30.0) sec Sodium (137-145) mmol/L BUN (9-20) mg/dL Creatinine (0.66-1.25) mg/dL Glucose (74-99) mg/dL POC Glucose (mg/dL) 195 H (75-99) mg/dL Calcium (8.4-10.2) mg/dL Microbiology - Last 24 Hours (Table) 04/24/17 18:56 Blood Culture - Preliminary Blood No Growth after 48 hours Laboratory Results WBC 6.7 k/uL (3.8-10.6) 04/26/17 02:37 RBC 3.68 m/uL (4.30-5.90) L 04/26/17 02:37 Hgb 10.2 gm/dL (13.0-17.5) L 04/26/17 02:37 Hct 32.2 % (39.0-53.0) L 04/26/17 02:37 MCV 87.5 fL (80.0-100.0) 04/26/17 02:37 MCH 27.7 pg (25.0-35.0) 04/26/17 02:37 MCHC 31.7 g/dL (31.0-37.0) 04/26/17 02:37 RDW 17.0 % (11.5-15.5) H 04/26/17 02:37 Plt Count 123 k/uL (150-450) L 04/26/17 02:37 Neutrophils % 90 % 04/26/17 02:37 Lymphocytes % 6 % 04/26/17 02:37 Monocytes % 3 % 04/26/17 02:37 Eosinophils % 0 % 04/26/17 02:37 Basophils % 0 % 04/26/17 02:37 Neutrophils # 6.1 k/uL (1.3-7.7) 04/26/17 02:37 Lymphocytes # 0.4 k/uL (1.0-4.8) L 04/26/17 02:37 Monocytes # 0.2 k/uL (0-1.0) 04/26/17 02:37 Eosinophils # 0.0 k/uL (0-0.7) 04/26/17 02:37 Basophils # 0.0 k/uL (0-0.2) 04/26/17 02:37 Hypochromasia Moderate 04/26/17 02:37 Anisocytosis Slight 04/26/17 02:37 PT 9.7 sec (9.0-12.0) 04/24/17 12:10 INR 1.0 (<1.2) 04/24/17 12:10 APTT 42.6 sec (22.0-30.0) H 04/26/17 02:37 Sodium 136 mmol/L (137-145) L 04/26/17 02:37 Potassium 4.4 mmol/L (3.5-5.1) 04/26/17 02:37 Chloride 106 mmol/L (98-107) 04/26/17 02:37 Carbon Dioxide 23 mmol/L (22-30) 04/26/17 02:37 Anion Gap 7 mmol/L 04/26/17 02:37 BUN 36 mg/dL (9-20) H 04/26/17 02:37 Creatinine 0.60 mg/dL (0.66-1.25) L 04/26/17 02:37 Est GFR (CKD-EPI)AfAm >90 (>60 ml/min/1.73 sqM) 04/26/17 02:37 Est GFR (CKD-EPI)NonAf >90 (>60 ml/min/1.73 sqM) 04/26/17 02:37 Glucose 155 mg/dL (74-99) H 04/26/17 02:37 POC Glucose (mg/dL) 195 mg/dL (75-99) H 04/26/17 20:33 POC Glu Double End Tenoner Operator ID Cassandra De Santiago 04/26/17 20:[address] Glu mg/dL 108 04/24/17 12:10 Hemoglobin A1c 5.4 % (4.0-6.0) 04/24/17 12:10 Calcium 8.2 mg/dL (8.4-10.2) L 04/26/17 02:37 Magnesium 1.9 mg/dL (1.6-2.3) 04/24/17 12:10 Total Bilirubin 1.1 mg/dL (0.2-1.3) 04/24/17 12:10 AST 49 U/L (17-59) 04/24/17 12:10 ALT 29 U/L (21-72) 04/24/17 12:10 Alkaline Phosphatase 50 U/L (38-126) 04/24/17 12:10 Total Creatine Kinase <20 U/L (55-170) L 04/25/17 00:42 CK-MB (CK-2) 0.8 ng/mL (0.0-2.4) 04/25/17 00:42 CK-MB (CK-2) Rel Index 04/25/17 00:42 Troponin I 0.023 ng/mL (0.000-0.034) 04/25/17 00:42 NT-Pro-B Natriuret Pep 321 pg/mL 04/24/17 12:10 Total Protein 6.0 g/dL (6.3-8.2) L 04/24/17 12:10 Albumin 3.0 g/dL (3.5-5.0) L 04/24/17 12:10 Triglycerides 80 mg/dL (<150) 04/25/17 00:42 Cholesterol 121 mg/dL (<200) 04/25/17 00:42 LDL Cholesterol, Calc 63 mg/dL (0-99) 04/25/17 00:42 HDL Cholesterol 42 mg/dL (40-60) 04/25/17 00:42 Microbiology 04/24/17 18:56 Blood Blood Culture - Preliminary No Growth after 48 hours Sputum culture with pseudomonas aeruginosa resistant to Cipro intermediate to cefepime. Assessment and Plan (1) Acute exacerbation of chronic obstructive airways disease Current Visit: Yes Status: Acute Code(s): J44.1 - CHRONIC OBSTRUCTIVE PULMONARY DISEASE W (ACUTE) EXACERBATION SNOMED Code(s): 241655665 (2) Gram-negative pneumonia Current Visit: Yes Status: Acute Code(s): J15.6 - PNEUMONIA DUE TO OTHER GRAM-NEGATIVE BACTERIA SNOMED Code(s): 401327168 (3) Pneumonia due to Pseudomonas aeruginosa Narrative/Plan: 81-year-old male that has extensive underlying pulmonary disease with COPD that is oxygen and intermittently steroid-dependent has had difficulty with ongoing pulmonary infection since February of this year. Pseudomonas aeruginosa, several species have been noted and have now become more resistant no longer susceptible to oral therapy. He was started on cefepime however laboratories now relating to an intermediate susceptibility and this will be transitioned to ceftazadime in antipseudomonal dose. The patient will likely need to go home with intravenous antibiotic therapy to complete the treatment of his somewhat refractory pseudomonas pneumonia. He fortunately is feeling slightly better at this point in time with current interventions. But is still very short of breath with any exertion and is still having significant cough but no hemoptysis. Patient was having some chest pain has been seen by cardiology and is not thought to have significant new coronary event. Continue supportive care and will be making arrangements for his antibiotic therapy at discharge. 04/26/2017 reveals the patient to be getting better today. He has less cough and is less short of breath. No fever is noted today. It appears that he is having the start of her response to the Fortaz. He will require outpatient intravenous antibiotic therapy. PICC line has been requested and maybe ready for discharge by Saturday if there is improvement of his status. We'll request case management as to the potential for outpatient intravenous antibiotic therapy, relates no preference of pharmacy. Current Visit: Yes Status: Acute Code(s): J15.1 - PNEUMONIA DUE TO PSEUDOMONAS SNOMED Code(s): 24799637
[2017-04-27] MEDS: IPRATROPIUM-ALBUTEROL 3 ML NEB INHALATION SCH ×6 (00:14→19:51)
[2017-04-27] MEDS: methylPREDNISolone SOD SUCCI 125 MG/2 ML VIAL IV SCH ×2 (00:51→07:01)
[2017-04-27 05:37] LABS: Glucose,Whole Blood 202 mg/dL (75-99)
[2017-04-27] MEDS: INSULIN ASPART 100 UNIT/ML 1 ML 10 ML VIAL SQ SCH ×4 (07:02→20:21)
[2017-04-27] MEDS: HEPARIN SODIUM,PORCINE 5,000 UNIT/ML 1 ML VIAL SQ SCH ×2 (10:04→20:21)
[2017-04-27] MEDS: ASPIRIN 325 MG TAB PO SCH (10:04)
[2017-04-27] MEDS: CITALOPRAM HYDROBROMIDE 20 MG TAB PO SCH (10:05)
[2017-04-27] MEDS: FUROSEMIDE 40 MG TAB PO SCH (10:05)
[2017-04-27] MEDS: guaiFENesin-DM 600/30MG 1 EACH TAB.ER.12H PO SCH (10:05)
[2017-04-27] MEDS: busPIRone HCl 5 MG TAB PO SCH ×2 (10:05→20:21)
[2017-04-27] MEDS: CALCIUM CARBONATE 500 MG CHEWABLE PO SCH (10:06)
[2017-04-27] MEDS: MULTIVITAMINS, THERA 1 EACH TAB PO SCH (10:06)
[2017-04-27] MEDS: NYSTATIN 100,000 UNIT/ML SUSP 500,000 UNIT/5 ML CUP PO SCH ×4 (10:07→23:22)
[2017-04-27 11:14] LABS: Glucose,Whole Blood 135 mg/dL (75-99)
--- NOTE | 2017-04-27 15:16 | P.PN ---
Subjective Progress Note Date: 04/27/17 On 04/25/2017 I'm seeing this patient for a follow-up regarding his acute COPD exacerbation. As mentioned earlier the patient has advanced COPD. The patient was hospitalized for an extensive right lung pneumonia back in March 2017 and the sputum was growing Pseudomonas. He was treated as an inpatient. He was discharged home on oral ciprofloxacin. He continued to have positive pseudomonas aeruginosa in his sputum. He was having worsening shortness of breath and his COPD was exacerbating. Based on that the patient had another sputum analysis an outpatient basis and the patient was found to have Pseudomonas and Aspergillus. I was concerned of cavitation for that reason a ordered a CAT scan of the chest and I started the patient on a combination of IV cefepime and oral Sporanox. ID consultation is still pending for now. Meanwhile, the CAT scan of the chest was done and showed extensive and advanced centrilobular emphysema scattered areas of fibrosis in addition to consolidation of the right upper lobe consistent with pneumonia. No active cavitation was seen. Small mid lung pleural fluid was also noted. Clinically the patient is feeling better. The patient is less short of breath compared to yesterday. He is still on 4 L of oxygen nasal cannula. He is on bronchodilators and steroids. Cough and congestion has subsided compared to yesterday. On 04/26/2017, the patient is being seen for a follow-up. The patient is feeling much better compared to yesterday. His progressively improving. His cough is congested and she is not producing much of sputum. No fever chills or night sweats. No chest pain. The patient was seen by infectious disease. There is consensus is that the Pseudomonas was cultured earlier was resistant to oral ciprofloxacin. The patient was ultimately switched to IV Fortaz based on the available [place] sees. I discussed the case with Dr. Marshall and we decided also to stop the Sporanox. The patient is afebrile. The patient is hemodynamically stable. The patient on IV Solu-Medrol. The patient will need a decline along with outpatient antibiotic treatment. He is doing well. No chest pain. No swelling lower extremities. No other complaint otherwise for now. On 04/27/2017 I'm seeing this patient for a follow-up. He is progressively getting better. Afebrile. Hemodynamically stable. He is currently off Sporanox. He is taking IV Fortaz. IV Solu Medrol will be tapered off. No change in mental status. No other significant events over the past 24 hours. Awaiting a PICC line insertion. Objective - Vital Signs Vital signs: Vital Signs Temp 97.1 F L 04/27/17 09:00 Pulse 118 H 04/27/17 12:19 Resp 19 04/27/17 12:19 BP 134/60 04/27/17 12:19 Pulse Ox 90 L 04/27/17 12:19 Intake & Output 04/26/17 04/27/17 04/27/17 18:59 06:59 18:59 Intake Total 840 500 Output Total 1000 1050 Balance -160 -1050 500 Weight 76.3 kg Intake: Oral 840 500 Output: Urine 1000 1050 Other: Voiding Method Urinal Urinal # Voids 1 - Exam GENERAL EXAM: Alert, fairly comfortable in no acute respiratory distress. EYES: Normal reaction of pupils, equal size. NOSE: Clear with pink turbinates. THROAT: No erythema or exudates. NECK: No masses, no JVD. CHEST: No chest wall deformity. LUNGS: Equal air entry coarse crackles in the bilateral posterior bases. Diminished. CVS: S1 and S2 normal with no audible murmur, regular rhythm. ABDOMEN: No hepatosplenomegaly, normal bowel sounds, no guarding or rigidity. SPINE: No scoliosis or deformity SKIN: No rashes CENTRAL NERVOUS SYSTEM: No focal deficits, tone is normal in all 4 extremities. EXTREMITIES: There is no peripheral edema. No clubbing, no cyanosis. Peripheral pulses are intact. - Labs CBC & Chem 7: 04/26/17 02:37 04/26/17 02:37 Labs: Abnormal Lab Results - Last 24 Hours (Table) 04/26/17 04/26/17 04/27/17 Range/Units 16:02 20:33 05:33 POC Glucose (mg/dL) 140 H 195 H 202 H (75-99) mg/dL 04/27/17 Range/Units 11:12 POC Glucose (mg/dL) 135 H (75-99) mg/dL Microbiology - Last 24 Hours (Table) 04/24/17 18:56 Blood Culture - Preliminary Blood No Growth after 48 hours Assessment and Plan Plan: Impression: #1 extensive right lung pulmonary consolidation secondary to pseudomonas aeruginosa. No clear-cut cavitation on the CAT scan of the chest. Most recent sputum analysis showed persistence of pseudomonas aeruginosa and that is also growth of some Aspergillus fungal elements. #2 advanced COPD #3 Acute exacerbation of severe oxygen dependent chronic obstructive pulmonary disease. #4 chronic smoking, 40 year 2 pack per day smoking however history however quit back in 1991. #5 History of prostate cancer treated with radiation therapy. Currently on Flomax. #6 History of anxiety/depression. Currently on BuSpar and Celexa. #7 Hyperlipidemia. Currently on simvastatin. #8 Elevated troponins, nonspecific, not related to any acute cardiac event Plan Continue IV Fortaz. Taper the steroids. PICC line insertion. Outpatient prolonged antibiotic treatment for pseudomonal pneumonia. Sporanox has been discontinued. We'll follow.
[2017-04-27 16:50] LABS: Glucose,Whole Blood 164 mg/dL (75-99)
[2017-04-27] MEDS: MELATONIN 3 MG TABLET PO SCH (20:21)
[2017-04-27] MEDS: ATORVASTATIN 10 MG TAB PO SCH (20:21)
[2017-04-27] MEDS: TAMSULOSIN 0.4 MG CAP.ER.24H PO SCH (20:22)
[2017-04-27 20:30] LABS: Glucose,Whole Blood 155 mg/dL (75-99)
--- NOTE | 2017-04-27 20:41 | P.PN ---
Subjective Progress Note Date: 04/26/17 Principal diagnosis: Pneumonia Patient is a 81-year-old male with a known history of COPD on home oxygen, hyperlipidemia history of prostate cancer status post radiation, hypertension and recent Pseudomonas sputum culture with pneumonia during last admission on came to ER with complaints of worsening shortness of breath and hypoxia. Patient follows with Dr. Dennison as an outpatient. Patient was seen by Dr. Dennison on 04/19/2017 and sputum cultures on 04/22/2017 showed Pseudomonas and Aspergillus species. Patient was suspected to have persistent Pseudomonas. Patient was recently sent home on ciprofloxacin as per ID recommendations. Otherwise patient does have worsening shortness of breath and fatigue and generalized weakness and hypoxia with pulse ox dropping down to 84% with nasal cannula at home. Patient came to the hospital for further evaluation. Patient has been having Pseudomonas and MRSA pneumonia since February 2017 Chest x-ray showed worsening right peribronchial infiltrates and chronic pulmonary fibrosis changes and COPD. Troponin 0.044, 0.028 and 0.023 BNP 321 EKG showed sinus tachycardia. Currently saturating at 90% on 6 L nasal cannula. Pulse ox is dropping down to 85% with minimal conversation. 04/25/2017 Patient does have improved shortness of breath. Otherwise patient is still requiring oxygen at 6 L by another cannula CT chest was done showed advanced emphysematous changes and new focal right hilar infiltrate Denied any fever or chills. No nausea vomiting or abdominal pain. Troponins were trending down and cardiology recommended outpatient stress test. Heparin has been DC'd 04/26/2017 Patient did improve clinically compared to yesterday. No fever no chills. Antibiotics have been changed to Fortaz as per ID recommendations depending on YULY. Otherwise patient remained on IV salmeterol and breathing treatments. No chest pain no worsening shortness of breath. All other review of systems negative for the above Objective - Vital Signs Vital signs: Vital Signs Temp 97.9 F 04/26/17 16:00 Pulse 90 04/26/17 19:54 Resp 18 04/26/17 16:00 BP 135/63 04/26/17 16:00 Pulse Ox 96 04/26/17 16:00 Intake & Output 04/26/17 04/26/17 04/27/17 06:59 18:59 06:59 Intake Total 163.304 840 Output Total 275 1000 Balance -111.696 -160 Weight 71 kg Intake: Intake, IV Titration 163.304 Amount Heparin Sod,Pork in 0.45% 163.304 NaCl 25,000 unit In 0.45 % NaCl 1 500ml.bag @ 12 UNITS/KG/HR 17.96 mls/hr IV .Q24H [facility] Rx#: [id number] Oral 840 Output: Urine 275 1000 Other: # Voids 1 - Exam Patient is lying in the bed comfortably, no acute distress, awake alert and oriented.. HEENT: Normocephalic. Neck is supple. Pupils reactive. Nostrils clear. Oral cavity is moist. Ears reveal no drainage. Neck reveals no JVD, carotid bruits, or thyromegaly. CHEST EXAMINATION: Trachea is central. Symmetrical expansion. Right basilar rhonchi and no wheeze. Nonlabored. CARDIAC: Normal S1, S2 with no gallops. No murmurs ABDOMEN: Soft. Bowel sounds normal. No organomegaly. No abdominal bruits. Extremities: reveal no edema. No clubbing or cyanosis Neurologically awake, alert, oriented x3 with well-coordinated movements. No focal deficits noted Skin: No rash or skin lesions. Psychiatric: Coperative. Nonsuicidal Musculoskeletal: No joint swelling or deformity. Normal range of motion. - Labs CBC & Chem 7: 04/26/17 02:37 04/26/17 02:37 Labs: Abnormal Lab Results - Last 24 Hours (Table) 04/26/17 04/26/17 04/26/17 Range/Units 02:37 02:37 02:37 RBC 3.68 L (4.30-5.90) m/uL Hgb 10.2 L (13.0-17.5) gm/dL Hct 32.2 L (39.0-53.0) % RDW 17.0 H (11.5-15.5) % Plt Count 123 L (150-450) k/uL Lymphocytes # 0.4 L (1.0-4.8) k/uL APTT 42.6 H (22.0-30.0) sec Sodium 136 L (137-145) mmol/L BUN 36 H (9-20) mg/dL Creatinine 0.60 L (0.66-1.25) mg/dL Glucose 155 H (74-99) mg/dL POC Glucose (mg/dL) (75-99) mg/dL Calcium 8.2 L (8.4-10.2) mg/dL 04/26/17 04/26/17 04/26/17 Range/Units 06:03 11:16 16:02 RBC (4.30-5.90) m/uL Hgb (13.0-17.5) gm/dL Hct (39.0-53.0) % RDW (11.5-15.5) % Plt Count (150-450) k/uL Lymphocytes # (1.0-4.8) k/uL APTT (22.0-30.0) sec Sodium (137-145) mmol/L BUN (9-20) mg/dL Creatinine (0.66-1.25) mg/dL Glucose (74-99) mg/dL POC Glucose (mg/dL) 191 H 119 H 140 H (75-99) mg/dL Calcium (8.4-10.2) mg/dL 04/26/17 Range/Units 20:33 RBC (4.30-5.90) m/uL Hgb (13.0-17.5) gm/dL Hct (39.0-53.0) % RDW (11.5-15.5) % Plt Count (150-450) k/uL Lymphocytes # (1.0-4.8) k/uL APTT (22.0-30.0) sec Sodium (137-145) mmol/L BUN (9-20) mg/dL Creatinine (0.66-1.25) mg/dL Glucose (74-99) mg/dL POC Glucose (mg/dL) 195 H (75-99) mg/dL Calcium (8.4-10.2) mg/dL Microbiology - Last 24 Hours (Table) 04/24/17 18:56 Blood Culture - Preliminary Blood No Growth after 24 hours Assessment and Plan Assessment: Acute on chronic hypoxic respiratory failure secondary to worsening right perihilar infiltrates with recent sputum cultures showing Pseudomonas and Aspergillus species on 04/22/2017. Right lung pneumonia due to Pseudomonas aeruginosa and MRSA Acute COPD exacerbation Elevated troponin. Possible non-ST elevated [place] History of Pseudomonas and MRSA pneumonia in February 2017 COPD severe with an FEV1 of 45% predicted at baseline prostate cancer treated by radiation therapy chronic anxiety/depression hyperlipidemia maintained on Zocor DVT prophylaxis Plan: Patient was started on antibiotics in the form of cefepime and Itraconazole. Antibiotics changed to Fortaz. itraconazole has been discontinued as per ID recommendations Elevated troponin is not consistent with acute coronary syndrome. Patient be continued on IV steroids and breathing treatments. Continue with oxygen therapy and follow closely. Prognosis is guarded with multiple medical problems and comorbid conditions and persistent pneumonia. Further recommendations based on the clinical course. Time with Patient: Greater than 30
--- NOTE | 2017-04-27 20:44 | P.PN ---
Subjective Progress Note Date: 04/27/17 Principal diagnosis: Pneumonia Patient is a 81-year-old male with a known history of COPD on home oxygen, hyperlipidemia history of prostate cancer status post radiation, hypertension and recent Pseudomonas sputum culture with pneumonia during last admission on came to ER with complaints of worsening shortness of breath and hypoxia. Patient follows with Dr. Dennison as an outpatient. Patient was seen by Dr. Dennison on 04/19/2017 and sputum cultures on 04/22/2017 showed Pseudomonas and Aspergillus species. Patient was suspected to have persistent Pseudomonas. Patient was recently sent home on ciprofloxacin as per ID recommendations. Otherwise patient does have worsening shortness of breath and fatigue and generalized weakness and hypoxia with pulse ox dropping down to 84% with nasal cannula at home. Patient came to the hospital for further evaluation. Patient has been having Pseudomonas and MRSA pneumonia since February 2017 Chest x-ray showed worsening right peribronchial infiltrates and chronic pulmonary fibrosis changes and COPD. Troponin 0.044, 0.028 and 0.023 BNP 321 EKG showed sinus tachycardia. Currently saturating at 90% on 6 L nasal cannula. Pulse ox is dropping down to 85% with minimal conversation. 04/25/2017 Patient does have improved shortness of breath. Otherwise patient is still requiring oxygen at 6 L by another cannula CT chest was done showed advanced emphysematous changes and new focal right hilar infiltrate Denied any fever or chills. No nausea vomiting or abdominal pain. Troponins were trending down and cardiology recommended outpatient stress test. Heparin has been DC'd 04/26/2017 Patient did improve clinically compared to yesterday. No fever no chills. Antibiotics have been changed to Fortaz as per ID recommendations depending on YULY. Otherwise patient remained on IV salmeterol and breathing treatments. No chest pain no worsening shortness of breath. 04/27/2017 Patient is improving clinically. Requiring O2 via cannula. Solu-Medrol dose decreased. Otherwise no complains of chest pain or shortness of breath. Anticipate discharge with PICC line and IV antibiotics possibly on Saturday. All other review of systems negative for the above Active Medications Albuterol/Ipratropium (Duoneb 0.5 Mg-3 Mg/3 Ml Soln) 3 ml INHALATION RT-Q4H [facility] Last Admin: 04/27/17 19:51 Dose: 3 ml Aspirin (Aspirin) 325 mg PO DAILY [facility] Last Admin: 04/27/17 10:04 Dose: 325 mg Atorvastatin Calcium (Lipitor) 10 mg PO HS [facility] Last Admin: 04/27/17 20:21 Dose: 10 mg Buspirone HCl (Buspar) 5 mg PO BID [facility] Last Admin: 04/27/17 20:21 Dose: 5 mg Calcium Carbonate/Glycine (Tums) 500 mg PO DAILY [facility] Last Admin: 04/27/17 10:06 Dose: 500 mg Citalopram Hydrobromide (Celexa) 40 mg PO HS [facility] Last Admin: 04/27/17 10:05 Dose: 40 mg Furosemide (Lasix) 40 mg PO DAILY [facility] Last Admin: 04/27/17 10:05 Dose: 40 mg Guaifenesin/Dextromethorphan (Mucinex Dm) 1 each PO DAILY [facility] Last Admin: 04/27/17 10:05 Dose: 1 each Heparin Sodium (Porcine) (Heparin) 5,000 unit SQ Q12HR [facility] Last Admin: 04/27/17 20:21 Dose: 5,000 unit Ceftazidime 2 gm/ Sodium (Chloride) 100 mls @ 100 mls/hr IVPB Q8HR [facility] Last Admin: 04/27/17 16:38 Dose: 100 mls/hr Insulin Aspart (Novolog) 0 unit SQ ACHS [facility] PRN Reason: Protocol Last Admin: 04/27/17 20:21 Dose: 2 unit Melatonin (Melatonin) 3 mg PO HS [facility] Last Admin: 04/27/17 20:21 Dose: 3 mg Multivitamins (Theragran) 1 each PO DAILY [facility] Last Admin: 04/27/17 10:06 Dose: 1 each Nitroglycerin (Nitrostat) 0.4 mg SUBLINGUAL Q5M PRN PRN Reason: Chest Pain Nystatin (Mycostatin Oral Susp) 400,000 unit PO QID [facility] Last Admin: 04/27/17 17:32 Dose: 400,000 unit Prednisone () 40 mg PO DAILY [facility] Tamsulosin HCl (Flomax) 0.4 mg PO HS [facility] Last Admin: 04/27/17 20:22 Dose: 0.4 mg Objective - Vital Signs Vital signs: Vital Signs Temp 97.1 F L 04/27/17 09:00 Pulse 105 H 04/27/17 20:06 Resp 18 04/27/17 16:00 BP 124/62 04/27/17 16:00 Pulse Ox 91 L 04/27/17 16:00 Intake & Output 04/27/17 04/27/17 04/28/17 06:59 18:59 07:59 Intake Total 737 Output Total 1050 Balance -1050 737 Weight 76.3 kg Intake: Oral 737 Output: Urine 1050 Other: Voiding Method Urinal Urinal # Voids 1 - Exam Patient is lying in the bed comfortably, no acute distress, awake alert and oriented.. HEENT: Normocephalic. Neck is supple. Pupils reactive. Nostrils clear. Oral cavity is moist. Ears reveal no drainage. Neck reveals no JVD, carotid bruits, or thyromegaly. CHEST EXAMINATION: Trachea is central. Symmetrical expansion. Right sided midlung bronchial sounds and no wheeze. Nonlabored. CARDIAC: Normal S1, S2 with no gallops. No murmurs ABDOMEN: Soft. Bowel sounds normal. No organomegaly. No abdominal bruits. Extremities: reveal no edema. No clubbing or cyanosis Neurologically awake, alert, oriented x3 with well-coordinated movements. No focal deficits noted Skin: No rash or skin lesions. Psychiatric: Coperative. Nonsuicidal Musculoskeletal: No joint swelling or deformity. Normal range of motion. - Labs CBC & Chem 7: 04/26/17 02:37 04/26/17 02:37 Labs: Abnormal Lab Results - Last 24 Hours (Table) 04/27/17 04/27/17 04/27/17 Range/Units 05:33 11:12 16:48 POC Glucose (mg/dL) 202 H 135 H 164 H (75-99) mg/dL 04/27/17 Range/Units 20:11 POC Glucose (mg/dL) 155 H (75-99) mg/dL Microbiology - Last 24 Hours (Table) 04/24/17 18:56 Blood Culture - Preliminary Blood No Growth after 48 hours Assessment and Plan Assessment: Acute on chronic hypoxic respiratory failure secondary to worsening right perihilar infiltrates with recent sputum cultures showing Pseudomonas and Aspergillus species on 04/22/2017. Right lung pneumonia due to Pseudomonas aeruginosa and MRSA Acute COPD exacerbation Elevated troponin. Possible non-ST elevated CA History of Pseudomonas and MRSA pneumonia in February 2017 COPD severe with an FEV1 of 45% predicted at baseline prostate cancer treated by radiation therapy chronic anxiety/depression hyperlipidemia maintained on Zocor DVT prophylaxis Plan: Patient was started on antibiotics in the form of cefepime and Itraconazole. Antibiotics changed to Fortaz. itraconazole has been discontinued as per ID recommendations Elevated troponin is not consistent with acute coronary syndrome. Patient be continued on IV steroids and breathing treatments. Continue with oxygen therapy and follow closely. Prognosis is guarded with multiple medical problems and comorbid conditions and persistent pneumonia. Further recommendations based on the clinical course. Time with Patient: Greater than 30
--- NOTE | 2017-04-27 21:52 | P.PN ---
Subjective Progress Note Date: 04/27/17 Principal diagnosis: Gram-negative pneumonia Pleasant 81 by mouth male in underlying COPD that is oxygen intermittently steroid-dependent is had significant difficulties over the last few months with recurrent pneumonia. Review reveals evidence of Pseudomonas isolate from his sputum a few months ago that was quite susceptible. He then was hospitalized it was thought evidence of the pseudomonas as well as MRSA in his sputum was removed with vancomycin and ciprofloxacin. The patient relates he had some improvement but now is having significant worsening of his status. Became much more short of breath week difficulty with ambulating and ADLs intensely presented back to hospital. As evidence of ongoing Pseudomonas pneumonia and with the lack of improvement the infectious diseases consultation was requested. The patient is feeling slightly better today since receiving current interventions include oxygen therapy, respiratory treatments, steroid therapy and alteration of antibiotic therapy. He does have cough but denies significant sputum production and does not have hemoptysis. Energy level is poor. 04/26/2017 patient is feeling somewhat better today. Family members are present including his . She is somewhat concerned about his overall status because of the severity of his pneumonia. We discussed that we know the pathogen that he has adequate antibiotic therapy with expectations of further improvement. Because of the current bacteria IV antibiotic therapy were required for home therapy. 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 04/27/2017 reveals the patient to be having further improvement. He is less short of breath. Energy levels improved. Less cough. He is feeling somewhat better looks forward to going home to be cared for by his in the near future. Objective - Vital Signs Vital signs: Vital Signs Temp 97.1 F L 04/27/17 09:00 Pulse 105 H 04/27/17 20:06 Resp 18 04/27/17 16:00 BP 124/62 04/27/17 16:00 Pulse Ox 91 L 04/27/17 16:00 Intake & Output 04/27/17 04/27/17 04/28/17 06:59 18:59 07:59 Intake Total 737 Output Total 1050 Balance -1050 737 Weight 76.3 kg Intake: Oral 737 Output: Urine 1050 Other: Voiding Method Urinal Urinal # Voids 1 - Exam 81-year-old gentleman who appears to be comfortable although he rapidly become short of breath with exertion HEENT: Anicteric conjunctiva are pink and moist nasal mucosa grossly intact without significant lesions, there is no thrush. Neck: The neck is supple without significant lymphadenopathy or thyromegaly. Lungs: Symmetric air entry is noted. Basilar crackles are heard no significant dullness or egophony is noted Heart: Irregular with an audible S1 and S2 soft S4 no distinct murmur click or rub is noted PMI nondisplaced Abdomen: Positive bowel sounds soft and nontender without palpable masses or organomegaly. There was no guarding or rebound. Extremities: The upper extremities have excellent pulses they are symmetric, no significant petechiae or telangiectasia. No splinter hemorrhages were noted. Laboratories just have trace pedal edema. Peripheral pulses 2+ and symmetric no open lesions are seen on either lower extremity Neuro: Awake alert oriented to person place and time. There are no acute new gross focal sensory motor deficits. - Labs CBC & Chem 7: 04/26/17 02:37 04/26/17 02:37 Labs: Abnormal Lab Results - Last 24 Hours (Table) 04/27/17 04/27/17 04/27/17 Range/Units 05:33 11:12 16:48 POC Glucose (mg/dL) 202 H 135 H 164 H (75-99) mg/dL 04/27/17 Range/Units 20:11 POC Glucose (mg/dL) 155 H (75-99) mg/dL Microbiology - Last 24 Hours (Table) 04/24/17 18:56 Blood Culture - Preliminary Blood No Growth after 72 hours Laboratory Results WBC 6.7 k/uL (3.8-10.6) 04/26/17 02:37 RBC 3.68 m/uL (4.30-5.90) L 04/26/17 02:37 Hgb 10.2 gm/dL (13.0-17.5) L 04/26/17 02:37 Hct 32.2 % (39.0-53.0) L 04/26/17 02:37 MCV 87.5 fL (80.0-100.0) 04/26/17 02:37 MCH 27.7 pg (25.0-35.0) 04/26/17 02:37 MCHC 31.7 g/dL (31.0-37.0) 04/26/17 02:37 RDW 17.0 % (11.5-15.5) H 04/26/17 02:37 Plt Count 123 k/uL (150-450) L 04/26/17 02:37 Neutrophils % 90 % 04/26/17 02:37 Lymphocytes % 6 % 04/26/17 02:37 Monocytes % 3 % 04/26/17 02:37 Eosinophils % 0 % 04/26/17 02:37 Basophils % 0 % 04/26/17 02:37 Neutrophils # 6.1 k/uL (1.3-7.7) 04/26/17 02:37 Lymphocytes # 0.4 k/uL (1.0-4.8) L 04/26/17 02:37 Monocytes # 0.2 k/uL (0-1.0) 04/26/17 02:37 Eosinophils # 0.0 k/uL (0-0.7) 04/26/17 02:37 Basophils # 0.0 k/uL (0-0.2) 04/26/17 02:37 Hypochromasia Moderate 04/26/17 02:37 Anisocytosis Slight 04/26/17 02:37 PT 9.7 sec (9.0-12.0) 04/24/17 12:10 INR 1.0 (<1.2) 04/24/17 12:10 APTT 42.6 sec (22.0-30.0) H 04/26/17 02:37 Sodium 136 mmol/L (137-145) L 04/26/17 02:37 Potassium 4.4 mmol/L (3.5-5.1) 04/26/17 02:37 Chloride 106 mmol/L (98-107) 04/26/17 02:37 Carbon Dioxide 23 mmol/L (22-30) 04/26/17 02:37 Anion Gap 7 mmol/L 04/26/17 02:37 BUN 36 mg/dL (9-20) H 04/26/17 02:37 Creatinine 0.60 mg/dL (0.66-1.25) L 04/26/17 02:37 Est GFR (CKD-EPI)AfAm >90 (>60 ml/min/1.73 sqM) 04/26/17 02:37 Est GFR (CKD-EPI)NonAf >90 (>60 ml/min/1.73 sqM) 04/26/17 02:37 Glucose 155 mg/dL (74-99) H 04/26/17 02:37 POC Glucose (mg/dL) 155 mg/dL (75-99) H 04/27/17 20:11 POC Glu Multimedia Producer ID 04/27/17 20:[address] Glu mg/dL 108 04/24/17 12:10 Hemoglobin A1c 5.4 % (4.0-6.0) 04/24/17 12:10 Calcium 8.2 mg/dL (8.4-10.2) L 04/26/17 02:37 Magnesium 1.9 mg/dL (1.6-2.3) 04/24/17 12:10 Total Bilirubin 1.1 mg/dL (0.2-1.3) 04/24/17 12:10 AST 49 U/L (17-59) 04/24/17 12:10 ALT 29 U/L (21-72) 04/24/17 12:10 Alkaline Phosphatase 50 U/L (38-126) 04/24/17 12:10 Total Creatine Kinase <20 U/L (55-170) L 04/25/17 00:42 CK-MB (CK-2) 0.8 ng/mL (0.0-2.4) 04/25/17 00:42 CK-MB (CK-2) Rel Index 04/25/17 00:42 Troponin I 0.023 ng/mL (0.000-0.034) 04/25/17 00:42 NT-Pro-B Natriuret Pep 321 pg/mL 04/24/17 12:10 Total Protein 6.0 g/dL (6.3-8.2) L 04/24/17 12:10 Albumin 3.0 g/dL (3.5-5.0) L 04/24/17 12:10 Triglycerides 80 mg/dL (<150) 04/25/17 00:42 Cholesterol 121 mg/dL (<200) 04/25/17 00:42 LDL Cholesterol, Calc 63 mg/dL (0-99) 04/25/17 00:42 HDL Cholesterol 42 mg/dL (40-60) 04/25/17 00:42 Microbiology 04/24/17 18:56 Blood Blood Culture - Preliminary No Growth after 48 hour Sputum culture 04/22/2017 shows evidence pseudomonas aeruginosa not susceptible to Cipro Assessment and Plan (1) Acute exacerbation of chronic obstructive airways disease Current Visit: Yes Status: Acute Code(s): J44.1 - CHRONIC OBSTRUCTIVE PULMONARY DISEASE W (ACUTE) EXACERBATION SNOMED Code(s): 405328251 (2) Gram-negative pneumonia Current Visit: Yes Status: Acute Code(s): J15.6 - PNEUMONIA DUE TO OTHER GRAM-NEGATIVE BACTERIA SNOMED Code(s): 463737875 (3) Pneumonia due to Pseudomonas aeruginosa Narrative/Plan: 81-year-old male that has extensive underlying pulmonary disease with COPD that is oxygen and intermittently steroid-dependent has had difficulty with ongoing pulmonary infection since February of this year. Pseudomonas aeruginosa, several species have been noted and have now become more resistant no longer susceptible to oral therapy. He was started on cefepime however laboratories now relating to an intermediate susceptibility and this will be transitioned to ceftazadime in antipseudomonal dose. The patient will likely need to go home with intravenous antibiotic therapy to complete the treatment of his somewhat refractory pseudomonas pneumonia. He fortunately is feeling slightly better at this point in time with current interventions. But is still very short of breath with any exertion and is still having significant cough but no hemoptysis. Patient was having some chest pain has been seen by cardiology and is not thought to have significant new coronary event. Continue supportive care and will be making arrangements for his antibiotic therapy at discharge. 04/26/2017 reveals the patient to be getting better today. He has less cough and is less short of breath. No fever is noted today. It appears that he is having the start of her response to the Fortaz. He will require outpatient intravenous antibiotic therapy. PICC line has been requested and maybe ready for discharge by Saturday if there is improvement of his status. We'll request case management as to the potential for outpatient intravenous antibiotic therapy, relates no preference of pharmacy. 04/27/2017 patient has further improvement. States he is less short of breath less cough feeling better. Is looking forward to going home. We'll have his PICC line placed in the will have outpatient intravenous antibiotic therapy since there are no oral options for his drug-resistant pseudomonas aeruginosa. As discussed isolate aspergillus is not a likely pathogen. The patient has had multiple prior cultures without evidence of fungus. The specimen is an expectorated sputum, if there are concerns as time goes by the possibility of an aspergillus infection within need bronchoscopy for further characterization and deep cultures. Current Visit: Yes Status: Acute Code(s): J15.1 - PNEUMONIA DUE TO PSEUDOMONAS SNOMED Code(s): 55787816
[2017-04-28] MEDS: IPRATROPIUM-ALBUTEROL 3 ML NEB INHALATION SCH ×6 (00:22→20:52)
[2017-04-28 06:23] LABS: Glucose,Whole Blood 145 mg/dL (75-99)
[2017-04-28 06:27] LABS: Anisocytosis Slight; Basophils % (A) 0 %; Eosinophils % (A) 0 %; HCT 32.7 % (39.0-53.0); HGB 10.5 gm/dL (13.0-17.5); Hypochromasia Slight; Lymphocytes # (A) 0.6 k/uL (1.0-4.8); Lymphocytes % (A) 10 %; MCH 27.2 pg (25.0-35.0); Mean Platelet Volume 8.2; Monocytes # (A) 0.3 k/uL (0-1.0); Monocytes % (A) 5 %; Neutrophils # (A) 4.7 k/uL (1.3-7.7); Neutrophils % (A) 82 %; Platelet Count 230 k/uL (150-450); RBC 3.85 m/uL (4.30-5.90); RDW 17.1 % (11.5-15.5); WBC 5.7 k/uL (3.8-10.6)
[2017-04-28] MEDS: INSULIN ASPART 100 UNIT/ML 1 ML 10 ML VIAL SQ SCH ×4 (06:47→21:01)
[2017-04-28 06:53] LABS: Anion Gap 4 mmol/L; Blood Urea Nitrogen 28 mg/dL (9-20); Calcium 7.9 mg/dL (8.4-10.2); Carbon Dioxide 34 mmol/L (22-30); Chloride 101 mmol/L (98-107); Glucose 136 mg/dL (74-99); Sodium 139 mmol/L (137-145)
[2017-04-28] MEDS: NYSTATIN 100,000 UNIT/ML SUSP 500,000 UNIT/5 ML CUP PO SCH ×4 (08:33→21:01)
[2017-04-28] MEDS: HEPARIN SODIUM,PORCINE 5,000 UNIT/ML 1 ML VIAL SQ SCH ×2 (08:33→21:00)
[2017-04-28] MEDS: guaiFENesin-DM 600/30MG 1 EACH TAB.ER.12H PO SCH (08:33)
[2017-04-28] MEDS: CALCIUM CARBONATE 500 MG CHEWABLE PO SCH (08:33)
[2017-04-28] MEDS: predniSONE 20 MG TAB PO SCH (08:33)
[2017-04-28] MEDS: MULTIVITAMINS, THERA 1 EACH TAB PO SCH (08:33)
[2017-04-28] MEDS: ASPIRIN 325 MG TAB PO SCH (08:33)
[2017-04-28] MEDS: busPIRone HCl 5 MG TAB PO SCH ×2 (08:35→21:00)
--- NOTE | 2017-04-28 14:58 | P.PN ---
Subjective Progress Note Date: 04/28/17 On 04/25/2017 I'm seeing this patient for a follow-up regarding his acute COPD exacerbation. As mentioned earlier the patient has advanced COPD. The patient was hospitalized for an extensive right lung pneumonia back in March 2017 and the sputum was growing Pseudomonas. He was treated as an inpatient. He was discharged home on oral ciprofloxacin. He continued to have positive pseudomonas aeruginosa in his sputum. He was having worsening shortness of breath and his COPD was exacerbating. Based on that the patient had another sputum analysis an outpatient basis and the patient was found to have Pseudomonas and Aspergillus. I was concerned of cavitation for that reason a ordered a CAT scan of the chest and I started the patient on a combination of IV cefepime and oral Sporanox. ID consultation is still pending for now. Meanwhile, the CAT scan of the chest was done and showed extensive and advanced centrilobular emphysema scattered areas of fibrosis in addition to consolidation of the right upper lobe consistent with pneumonia. No active cavitation was seen. Small mid lung pleural fluid was also noted. Clinically the patient is feeling better. The patient is less short of breath compared to yesterday. He is still on 4 L of oxygen nasal cannula. He is on bronchodilators and steroids. Cough and congestion has subsided compared to yesterday. On 04/26/2017, the patient is being seen for a follow-up. The patient is feeling much better compared to yesterday. His progressively improving. His cough is congested and she is not producing much of sputum. No fever chills or night sweats. No chest pain. The patient was seen by infectious disease. There is consensus is that the Pseudomonas was cultured earlier was resistant to oral ciprofloxacin. The patient was ultimately switched to IV Fortaz based on the available [place] sees. I discussed the case with Dr. Marshall and we decided also to stop the Sporanox. The patient is afebrile. The patient is hemodynamically stable. The patient on IV Solu-Medrol. The patient will need a decline along with outpatient antibiotic treatment. He is doing well. No chest pain. No swelling lower extremities. No other complaint otherwise for now. On 04/27/2017 I'm seeing this patient for a follow-up. He is progressively getting better. Afebrile. Hemodynamically stable. He is currently off Sporanox. He is taking IV Fortaz. IV Solu Medrol will be tapered off. No change in mental status. No other significant events over the past 24 hours. Awaiting a PICC line insertion. On 04/28/2017, patient is being seen for a follow-up. The patient is doing well. No new complaints. The PICC line is to be inserted tomorrow. Remain IV Fortaz 2 g every 8 hours. No fever. No chills. No chest pain. Took the patient off the IV Solu Medrol and start him on a prednisone burst taper. No nausea. No vomiting. No diarrhea. Tolerating the antibiotic well. No other significant events over the past 24 hours. Objective - Vital Signs Vital signs: Vital Signs Temp 97.7 F 04/28/17 12:00 Pulse 114 H 04/28/17 12:00 Resp 20 04/28/17 12:00 BP 149/80 04/28/17 12:00 Pulse Ox 89 L 04/28/17 12:00 Intake & Output 04/27/17 04/28/17 04/28/17 17:59 06:59 18:59 Intake Total 500 Output Total 500 Balance 0 Intake: IV 100 cefTAZidime 2 gm In 100 Sodium Chloride 0.9% 100 ml @ 100 mls/hr IVPB Q8HR [facility] Rx#:[id number] Oral 400 Output: Urine 500 Other: Voiding Method Urinal # Voids - Exam GENERAL EXAM: Alert, fairly comfortable in no acute respiratory distress. EYES: Normal reaction of pupils, equal size. NOSE: Clear with pink turbinates. THROAT: No erythema or exudates. NECK: No masses, no JVD. CHEST: No chest wall deformity. LUNGS: Equal air entry coarse crackles in the bilateral posterior bases. Diminished. CVS: S1 and S2 normal with no audible murmur, regular rhythm. ABDOMEN: No hepatosplenomegaly, normal bowel sounds, no guarding or rigidity. SPINE: No scoliosis or deformity SKIN: No rashes CENTRAL NERVOUS SYSTEM: No focal deficits, tone is normal in all 4 extremities. EXTREMITIES: There is no peripheral edema. No clubbing, no cyanosis. Peripheral pulses are intact. - Labs CBC & Chem 7: 04/28/17 05:22 04/28/17 05:22 Labs: Abnormal Lab Results - Last 24 Hours (Table) 04/27/17 04/27/17 04/28/17 Range/Units 16:48 20:11 05:22 RBC 3.85 L (4.30-5.90) m/uL Hgb 10.5 L (13.0-17.5) gm/dL Hct 32.7 L (39.0-53.0) % RDW 17.1 H (11.5-15.5) % Lymphocytes # 0.6 L (1.0-4.8) k/uL Carbon Dioxide (22-30) mmol/L BUN (9-20) mg/dL Glucose (74-99) mg/dL POC Glucose (mg/dL) 164 H 155 H (75-99) mg/dL Calcium (8.4-10.2) mg/dL 04/28/17 04/28/17 Range/Units 05:22 06:21 RBC (4.30-5.90) m/uL Hgb (13.0-17.5) gm/dL Hct (39.0-53.0) % RDW (11.5-15.5) % Lymphocytes # (1.0-4.8) k/uL Carbon Dioxide 34 H (22-30) mmol/L BUN 28 H (9-20) mg/dL Glucose 136 H (74-99) mg/dL POC Glucose (mg/dL) 145 H (75-99) mg/dL Calcium 7.9 L (8.4-10.2) mg/dL Microbiology - Last 24 Hours (Table) 04/24/17 18:56 Blood Culture - Preliminary Blood No Growth after 72 hours Assessment and Plan Plan: Impression: #1 extensive right lung pulmonary consolidation secondary to pseudomonas aeruginosa. No clear-cut cavitation on the CAT scan of the chest. Most recent sputum analysis showed persistence of pseudomonas aeruginosa and that is also growth of some Aspergillus fungal elements. #2 advanced COPD #3 Acute exacerbation of severe oxygen dependent chronic obstructive pulmonary disease. #4 chronic smoking, 40 year 2 pack per day smoking however history however quit back in 1991. #5 History of prostate cancer treated with radiation therapy. Currently on Flomax. #6 History of anxiety/depression. Currently on BuSpar and Celexa. #7 Hyperlipidemia. Currently on simvastatin. #8 Elevated troponins, nonspecific, not related to any acute cardiac event Plan Continue IV Fortaz. Awaiting insertion of a PICC line. No side effects of the treatment. Continue the prednisone burst taper. Continue the bronchodilators. Anticipate discharge within the next 24-48 hours to be followed up in the office with repeated chest x-rays. Will need at least 2 weeks of IV antibiotics regarding this pseudomonal pneumonia.
[2017-04-28 20:53] LABS: Glucose,Whole Blood 132 mg/dL (75-99)
[2017-04-28] MEDS: ATORVASTATIN 10 MG TAB PO SCH (21:00)
[2017-04-28] MEDS: CITALOPRAM HYDROBROMIDE 20 MG TAB PO SCH (21:00)
[2017-04-28] MEDS: MELATONIN 3 MG TABLET PO SCH (21:01)
[2017-04-28] MEDS: TAMSULOSIN 0.4 MG CAP.ER.24H PO SCH (21:01)
[2017-04-28] MEDS: methylPREDNISolone SOD SUCCI 125 MG/2 ML VIAL IV SCH (21:06)
[2017-04-29] MEDS: IPRATROPIUM-ALBUTEROL 3 ML NEB INHALATION SCH ×4 (00:19→11:25)
[2017-04-29 06:50] LABS: Glucose,Whole Blood 91 mg/dL (75-99)
[2017-04-29] MEDS: INSULIN ASPART 100 UNIT/ML 1 ML 10 ML VIAL SQ SCH ×2 (06:51→12:25)
[2017-04-29] MEDS: CALCIUM CARBONATE 500 MG CHEWABLE PO SCH (09:08)
[2017-04-29] MEDS: MULTIVITAMINS, THERA 1 EACH TAB PO SCH (09:08)
[2017-04-29] MEDS: FUROSEMIDE 40 MG TAB PO SCH (09:08)
[2017-04-29] MEDS: busPIRone HCl 5 MG TAB PO SCH (09:08)
[2017-04-29] MEDS: HEPARIN SODIUM,PORCINE 5,000 UNIT/ML 1 ML VIAL SQ SCH (09:08)
[2017-04-29] MEDS: guaiFENesin-DM 600/30MG 1 EACH TAB.ER.12H PO SCH (09:08)
[2017-04-29] MEDS: ASPIRIN 325 MG TAB PO SCH (09:08)
[2017-04-29] MEDS: NYSTATIN 100,000 UNIT/ML SUSP 500,000 UNIT/5 ML CUP PO SCH (09:09)
[2017-04-29] MEDS: predniSONE 20 MG TAB PO SCH (09:09)
[2017-04-29 09:55] VITALS: BP 132/67; RESP 20; TEMP 97.6
[2017-04-29] MEDS ORDERED: LIDOCAINE 2% INJ 20 MG/ML SQ ONE (11:07)
[2017-04-29 11:36] VITALS: PULSE 100
--- NOTE | 2017-04-29 11:49 | IR ---
PICC LINE PLACEMENT: HISTORY: Infection requiring long-term antibiotic therapy PROCEDURE: Ultrasound and fluoroscopic guidance of PICC line placement. COMPLICATIONS: None ANESTHESIA: 1. 1% Lidocaine locally. FINDINGS/TECHNIQUE: The procedure was explained to the patient. The risks, complications, benefits and alternatives were discussed and any questions were answered. Informed consent was obtained. The patient was placed supine on the fluoroscopic table and prepped and draped in the usual sterile [facility] ion. Utilizing a 21 gauge needle and sonographic and fluoroscopic guidance, access in the vein was achieved and there is placement of a 0.018 guidewire. The vein is patent. A 4-F sheath was placed o shara the guidewire. The guidewire and dilator were removed and a 4-F. PICC line was placed through th e sheath with the tip at the level of the SVC. The sheath was removed, the catheter was flushed and sutured into position. The patient was stable throughout the procedure and remained stable upon disc harge from the Department of Radiology. The vein puncture was patent under ultrasound. A wyatt scale image was obtained to document patency of the vein punctured. All elements of the maximal barrier technique were utilized. FLUOROSCOPY TIME: 0.1 minutes, one image submitted IMPRESSION: Successful PICC line placement under ultrasound and fluoroscopic guidance.
--- NOTE | 2017-04-29 12:06 | P.PN ---
Subjective Progress Note Date: 04/28/17 Principal diagnosis: Pneumonia Patient is a 81-year-old male with a known history of COPD on home oxygen, hyperlipidemia history of prostate cancer status post radiation, hypertension and recent Pseudomonas sputum culture with pneumonia during last admission on came to ER with complaints of worsening shortness of breath and hypoxia. Patient follows with Dr. Dennison as an outpatient. Patient was seen by Dr. Dennison on 04/19/2017 and sputum cultures on 04/22/2017 showed Pseudomonas and Aspergillus species. Patient was suspected to have persistent Pseudomonas. Patient was recently sent home on ciprofloxacin as per ID recommendations. Otherwise patient does have worsening shortness of breath and fatigue and generalized weakness and hypoxia with pulse ox dropping down to 84% with nasal cannula at home. Patient came to the hospital for further evaluation. Patient has been having Pseudomonas and MRSA pneumonia since February 2017 Chest x-ray showed worsening right peribronchial infiltrates and chronic pulmonary fibrosis changes and COPD. Troponin 0.044, 0.028 and 0.023 BNP 321 EKG showed sinus tachycardia. Currently saturating at 90% on 6 L nasal cannula. Pulse ox is dropping down to 85% with minimal conversation. 04/25/2017 Patient does have improved shortness of breath. Otherwise patient is still requiring oxygen at 6 L by another cannula CT chest was done showed advanced emphysematous changes and new focal right hilar infiltrate Denied any fever or chills. No nausea vomiting or abdominal pain. Troponins were trending down and cardiology recommended outpatient stress test. Heparin has been DC'd 04/26/2017 Patient did improve clinically compared to yesterday. No fever no chills. Antibiotics have been changed to Fortaz as per ID recommendations depending on YULY. Otherwise patient remained on IV salmeterol and breathing treatments. No chest pain no worsening shortness of breath. 04/27/2017 Patient is improving clinically. Requiring O2 via cannula. Solu-Medrol dose decreased. Otherwise no complains of chest pain or shortness of breath. Anticipate discharge with PICC line and IV antibiotics possibly on Saturday. On 04/28/2017 Patient denied any new complaints today. Cough and shortness of breath improving. IV steroids have been changed to prednisone by mouth. Possible PICC line placement tomorrow with antibiotics as an outpatient. No fever no chills. No other acute overnight issues. All other review of systems negative for the above Active Medications Albuterol/Ipratropium (Duoneb 0.5 Mg-3 Mg/3 Ml Soln) 3 ml INHALATION RT-Q4H [facility] Last Admin: 04/27/17 19:51 Dose: 3 ml Aspirin (Aspirin) 325 mg PO DAILY [facility] Last Admin: 04/27/17 10:04 Dose: 325 mg Atorvastatin Calcium (Lipitor) 10 mg PO HS [facility] Last Admin: 04/27/17 20:21 Dose: 10 mg Buspirone HCl (Buspar) 5 mg PO BID [facility] Last Admin: 04/27/17 20:21 Dose: 5 mg Calcium Carbonate/Glycine (Tums) 500 mg PO DAILY [facility] Last Admin: 04/27/17 10:06 Dose: 500 mg Citalopram Hydrobromide (Celexa) 40 mg PO HS [facility] Last Admin: 04/27/17 10:05 Dose: 40 mg Furosemide (Lasix) 40 mg PO DAILY [facility] Last Admin: 04/27/17 10:05 Dose: 40 mg Guaifenesin/Dextromethorphan (Mucinex Dm) 1 each PO DAILY [facility] Last Admin: 04/27/17 10:05 Dose: 1 each Heparin Sodium (Porcine) (Heparin) 5,000 unit SQ Q12HR [facility] Last Admin: 04/27/17 20:21 Dose: 5,000 unit Ceftazidime 2 gm/ Sodium (Chloride) 100 mls @ 100 mls/hr IVPB Q8HR [facility] Last Admin: 04/27/17 16:38 Dose: 100 mls/hr Insulin Aspart (Novolog) 0 unit SQ ACHS [facility] PRN Reason: Protocol Last Admin: 04/27/17 20:21 Dose: 2 unit Melatonin (Melatonin) 3 mg PO HS [facility] Last Admin: 04/27/17 20:21 Dose: 3 mg Multivitamins (Theragran) 1 each PO DAILY [facility] Last Admin: 04/27/17 10:06 Dose: 1 each Nitroglycerin (Nitrostat) 0.4 mg SUBLINGUAL Q5M PRN PRN Reason: Chest Pain Nystatin (Mycostatin Oral Susp) 400,000 unit PO QID [facility] Last Admin: 04/27/17 17:32 Dose: 400,000 unit Prednisone () 40 mg PO DAILY [facility] Tamsulosin HCl (Flomax) 0.4 mg PO HS [facility] Last Admin: 04/27/17 20:22 Dose: 0.4 mg Objective - Vital Signs Vital signs: Vital Signs Temp 97.8 F 04/28/17 15:41 Pulse 110 H 04/28/17 15:50 Resp 20 04/28/17 15:41 BP 155/71 04/28/17 15:41 Pulse Ox 90 L 04/28/17 15:41 Intake & Output 04/27/17 04/28/17 04/28/17 17:59 06:59 18:59 Intake Total 500 Output Total 500 Balance 0 Intake: IV 100 cefTAZidime 2 gm In 100 Sodium Chloride 0.9% 100 ml @ 100 mls/hr IVPB Q8HR [facility] Rx#:[id number] Oral 400 Output: Urine 500 Other: Voiding Method Urinal # Voids - Exam Patient is lying in the bed comfortably, no acute distress, awake alert and oriented.. HEENT: Normocephalic. Neck is supple. Pupils reactive. Nostrils clear. Oral cavity is moist. Ears reveal no drainage. Neck reveals no JVD, carotid bruits, or thyromegaly. CHEST EXAMINATION: Trachea is central. Symmetrical expansion. Right sided midlung bronchial sounds and no wheeze. Nonlabored. CARDIAC: Normal S1, S2 with no gallops. No murmurs ABDOMEN: Soft. Bowel sounds normal. No organomegaly. No abdominal bruits. Extremities: reveal no edema. No clubbing or cyanosis Neurologically awake, alert, oriented x3 with well-coordinated movements. No focal deficits noted Skin: No rash or skin lesions. Psychiatric: Coperative. Nonsuicidal Musculoskeletal: No joint swelling or deformity. Normal range of motion. - Labs CBC & Chem 7: 04/28/17 05:22 04/28/17 05:22 Labs: Abnormal Lab Results - Last 24 Hours (Table) 04/27/17 04/28/17 04/28/17 Range/Units 20:11 05:22 05:22 RBC 3.85 L (4.30-5.90) m/uL Hgb 10.5 L (13.0-17.5) gm/dL Hct 32.7 L (39.0-53.0) % RDW 17.1 H (11.5-15.5) % Lymphocytes # 0.6 L (1.0-4.8) k/uL Carbon Dioxide 34 H (22-30) mmol/L BUN 28 H (9-20) mg/dL Glucose 136 H (74-99) mg/dL POC Glucose (mg/dL) 155 H (75-99) mg/dL Calcium 7.9 L (8.4-10.2) mg/dL 04/28/17 Range/Units 06:21 RBC (4.30-5.90) m/uL Hgb (13.0-17.5) gm/dL Hct (39.0-53.0) % RDW (11.5-15.5) % Lymphocytes # (1.0-4.8) k/uL Carbon Dioxide (22-30) mmol/L BUN (9-20) mg/dL Glucose (74-99) mg/dL POC Glucose (mg/dL) 145 H (75-99) mg/dL Calcium (8.4-10.2) mg/dL Microbiology - Last 24 Hours (Table) 04/24/17 18:56 Blood Culture - Preliminary Blood No Growth after 72 hours Assessment and Plan Assessment: Acute on chronic hypoxic respiratory failure secondary to worsening right perihilar infiltrates with recent sputum cultures showing Pseudomonas and Aspergillus species on 04/22/2017. Right lung pneumonia due to Pseudomonas aeruginosa and MRSA Acute COPD exacerbation Elevated troponin. Unlikely is acute coronary syndrome History of Pseudomonas and MRSA pneumonia in February 2017 COPD severe with an FEV1 of 45% predicted at baseline prostate cancer treated by radiation therapy chronic anxiety/depression hyperlipidemia maintained on Zocor DVT prophylaxis Plan: Patient was started on antibiotics in the form of cefepime and Itraconazole. Antibiotics changed to Fortaz. itraconazole has been discontinued as per ID recommendations Elevated troponin is not consistent with acute coronary syndrome. Patient be continued on IV steroids and breathing treatments. Continue with oxygen therapy and follow closely. Prognosis is guarded with multiple medical problems and comorbid conditions and persistent pneumonia. Further recommendations based on the clinical course. Time with Patient: Greater than 30
[2017-04-29 12:09] LABS: Glucose,Whole Blood 112 mg/dL (75-99)
--- NOTE | 2017-04-29 12:16 | P.DS ---
Providers Date of admission: 04/24/17 15:47 Expected date of discharge: 04/29/17 Attending physician: Randal Cuevas Consults: 04/24/17 15:47 Consult Physician Routine Consulting Provider: Juan Diane Consult Reason/Comments: Elevated troponin Do you want consulting provider notified?: Yes Consult Physician Routine Consulting Provider: Charleen Dennison Consult Reason/Comments: COPD exacerbation, elevated troponin Do you want consulting provider notified?: Yes 04/24/17 18:00 Consult Physician Routine Consulting Provider: Taras Marshall Consult Reason/Comments: Aspergillosis, possible fungal ball lung infection, pseudomonas, MRSA Do you want consulting provider notified?: Yes Primary care physician: Lily Carolina Hospital Course: Discharge diagnosis Acute on chronic hypoxic respiratory failure secondary to worsening right perihilar infiltrates with recent sputum cultures showing Pseudomonas and Aspergillus species on 04/22/2017. Right lung pneumonia due to Pseudomonas aeruginosa and MRSA Acute COPD exacerbation Elevated troponin. Unlikely is acute coronary syndrome History of Pseudomonas and MRSA pneumonia in February 2017 COPD severe with an FEV1 of 45% predicted at baseline prostate cancer treated by radiation therapy chronic anxiety/depression hyperlipidemia maintained on Zocor DVT prophylaxis Hospital course Patient is a 81-year-old male with a known history of COPD on home oxygen, hyperlipidemia history of prostate cancer status post radiation, hypertension and recent Pseudomonas sputum culture with pneumonia during last admission on came to ER with complaints of worsening shortness of breath and hypoxia. Patient follows with Dr. Dennison as an outpatient. Patient was seen by Dr. Dennison on 04/19/2017 and sputum cultures on 04/22/2017 showed Pseudomonas and Aspergillus species. Patient was suspected to have persistent Pseudomonas. Patient was recently sent home on ciprofloxacin as per ID recommendations. Otherwise patient does have worsening shortness of breath and fatigue and generalized weakness and hypoxia with pulse ox dropping down to 84% with nasal cannula at home. Patient came to the hospital for further evaluation. Patient has been having Pseudomonas and MRSA pneumonia since February 2017 Chest x-ray showed worsening right peribronchial infiltrates and chronic pulmonary fibrosis changes and COPD. Troponin 0.044, 0.028 and 0.023 BNP 321 EKG showed sinus tachycardia. Currently saturating at 90% on 6 L nasal cannula. Pulse ox is dropping down to 85% with minimal conversation. 04/25/2017 Patient does have improved shortness of breath. Otherwise patient is still requiring oxygen at 6 L by another cannula CT chest was done showed advanced emphysematous changes and new focal right hilar infiltrate Denied any fever or chills. No nausea vomiting or abdominal pain. Troponins were trending down and cardiology recommended outpatient stress test. Heparin has been DC'd 04/26/2017 Patient did improve clinically compared to yesterday. No fever no chills. Antibiotics have been changed to Fortaz as per ID recommendations depending on YULY. Otherwise patient remained on IV salmeterol and breathing treatments. No chest pain no worsening shortness of breath. 04/27/2017 Patient is improving clinically. Requiring O2 via cannula. Solu-Medrol dose decreased. Otherwise no complains of chest pain or shortness of breath. Anticipate discharge with PICC line and IV antibiotics possibly on Saturday. On 04/28/2017 Patient denied any new complaints today. Cough and shortness of breath improving. IV steroids have been changed to prednisone by mouth. Possible PICC line placement tomorrow with antibiotics as an outpatient. No fever no chills. No other acute overnight issues. Patient was started on antibiotics in the form of cefepime and Itraconazole. Antibiotics changed to Fortaz. itraconazole has been discontinued as per ID recommendations ..Elevated troponin is not consistent with acute coronary syndrome. Patient was continued on IV steroids and breathing treatments. Changed to prednisone and. Continue with oxygen therapy and followed closely. Otherwise patient is stable to be discharged to rehab to complete IV antibiotics via PICC line Discharge physical examination PHYSICAL EXAMINATION: Patient is lying in the bed comfortably, no acute distress, awake alert and oriented.. HEENT: Normocephalic. Neck is supple. Pupils reactive. Nostrils clear. Oral cavity is moist. Ears reveal no drainage. Neck reveals no JVD, carotid bruits, or thyromegaly. CHEST EXAMINATION: Trachea is central. Symmetrical expansion. Minimal right basilar crackles. Bilateral air entry improved with minimal expiratory wheeze. CARDIAC: Normal S1, S2 with no gallops. No murmurs ABDOMEN: Soft. Bowel sounds normal. No organomegaly. No abdominal bruits. Extremities: reveal no edema. No clubbing or cyanosis Neurologically awake, alert, oriented x3 with well-coordinated movements. No focal deficits noted Skin: No rash or skin lesions. Psychiatric: Cooperative. Nonsuicidal Musculoskeletal: No joint swelling or deformity. Normal range of motion. Vital Signs 04/24/17 04/24/17 04/24/17 11:45 12:01 12:40 Temperature 99.5 F Pulse Rate 118 H 113 H 112 H Pulse Rate [ Pulse Oximetery ] Respiratory 26 H 24 24 Rate Blood Pressure 112/54 121/59 120/62 Blood Pressure [Left Arm] Blood Pressure [Right Arm] O2 Sat by Pulse 97 75 L 91 L Oximetry 04/24/17 04/24/17 04/24/17 14:00 15:00 16:00 Temperature Pulse Rate 110 H 116 H 104 H Pulse Rate [ Pulse Oximetery ] Respiratory 26 H 26 H 26 H Rate Blood Pressure 112/56 109/62 140/70 Blood Pressure [Left Arm] Blood Pressure [Right Arm] O2 Sat by Pulse 99 93 L 93 L Oximetry 04/24/17 04/24/17 04/24/17 17:00 18:00 19:13 Temperature 97.3 F L Pulse Rate 108 H 105 H 114 H Pulse Rate [ Pulse Oximetery ] Respiratory 26 H 26 H 18 Rate Blood Pressure 133/57 124/61 140/65 Blood Pressure [Left Arm] Blood Pressure [Right Arm] O2 Sat by Pulse 93 L 93 L 92 L Oximetry 04/24/17 04/24/17 04/24/17 19:45 20:56 21:40 Temperature 98.7 F 98.3 F Pulse Rate 114 H 111 H 107 H Pulse Rate [ Pulse Oximetery ] Respiratory 26 H 26 H Rate Blood Pressure 145/56 142/76 Blood Pressure [Left Arm] Blood Pressure [Right Arm] O2 Sat by Pulse 90 L 91 L Oximetry 04/24/17 04/24/17 04/24/17 23:25 23:28 23:34 Temperature Pulse Rate 101 H 103 H Pulse Rate [ Pulse Oximetery ] Respiratory Rate Blood Pressure Blood Pressure [Left Arm] Blood Pressure [Right Arm] O2 Sat by Pulse 92 L Oximetry 04/25/17 04/25/17 04/25/17 00:00 04:00 04:47 Temperature 97.6 F 97.6 F Pulse Rate 104 H Pulse Rate [ 107 H 97 Pulse Oximetery ] Respiratory 20 20 Rate Blood Pressure Blood Pressure 98/53 [Left Arm] Blood Pressure 104/57 [Right Arm] O2 Sat by Pulse 92 L 92 L Oximetry 04/25/17 04/25/17 04/25/17 04:56 08:00 08:45 Temperature 97.4 F L Pulse Rate 100 96 Pulse Rate [ 100 Pulse Oximetery ] Respiratory 16 Rate Blood Pressure Blood Pressure 115/61 [Left Arm] Blood Pressure [Right Arm] O2 Sat by Pulse 91 L 91 L Oximetry 04/25/17 04/25/17 04/25/17 09:00 12:00 12:51 Temperature 97.5 F L Pulse Rate 104 H 100 Pulse Rate [ 102 H Pulse Oximetery ] Respiratory 18 16 Rate Blood Pressure Blood Pressure 102/70 [Left Arm] Blood Pressure [Right Arm] O2 Sat by Pulse 91 L Oximetry 04/25/17 04/25/17 04/25/17 13:01 16:00 16:07 Temperature 97.3 F L Pulse Rate 102 H 92 Pulse Rate [ 94 Pulse Oximetery ] Respiratory 16 18 Rate Blood Pressure Blood Pressure 130/59 [Left Arm] Blood Pressure [Right Arm] O2 Sat by Pulse 90 L Oximetry 04/25/17 04/25/17 04/25/17 16:17 19:57 20:00 Temperature Pulse Rate 93 94 Pulse Rate [ 108 H Pulse Oximetery ] Respiratory 18 Rate Blood Pressure Blood Pressure 119/58 [Left Arm] Blood Pressure [Right Arm] O2 Sat by Pulse 92 L Oximetry 04/25/17 04/26/17 04/26/17 20:07 00:00 03:59 Temperature 97.8 F 97.4 F L Pulse Rate 95 Pulse Rate [ 101 H 108 H Pulse Oximetery ] Respiratory 18 18 Rate Blood Pressure Blood Pressure 126/72 152/71 [Left Arm] Blood Pressure [Right Arm] O2 Sat by Pulse 93 L 91 L Oximetry 04/26/17 04/26/17 04/26/17 04:35 04:50 08:00 Temperature 98.2 F Pulse Rate 92 100 Pulse Rate [ 104 H Pulse Oximetery ] Respiratory 18 Rate Blood Pressure Blood Pressure 125/58 [Left Arm] Blood Pressure [Right Arm] O2 Sat by Pulse 90 L Oximetry 04/26/17 04/26/17 04/26/17 08:10 08:23 12:00 Temperature 97.3 F L Pulse Rate 96 96 92 Pulse Rate [ 98 Pulse Oximetery ] Respiratory 18 Rate Blood Pressure Blood Pressure [Left Arm] Blood Pressure [Right Arm] O2 Sat by Pulse 93 L Oximetry 04/26/17 04/26/17 04/26/17 12:11 15:44 15:54 Temperature Pulse Rate 96 92 93 Pulse Rate [ Pulse Oximetery ] Respiratory Rate Blood Pressure Blood Pressure [Left Arm] Blood Pressure [Right Arm] O2 Sat by Pulse Oximetry 04/26/17 04/26/17 04/26/17 16:00 19:44 19:54 Temperature 97.9 F Pulse Rate 88 90 Pulse Rate [ 96 Pulse Oximetery ] Respiratory 18 Rate Blood Pressure Blood Pressure 135/63 [Left Arm] Blood Pressure [Right Arm] O2 Sat by Pulse 96 Oximetry 04/26/17 04/27/17 04/27/17 20:00 00:00 00:14 Temperature 97.0 F L 97.1 F L Pulse Rate 92 Pulse Rate [ 114 H 111 H Pulse Oximetery ] Respiratory 18 18 Rate Blood Pressure Blood Pressure 143/66 109/51 [Left Arm] Blood Pressure [Right Arm] O2 Sat by Pulse 90 L 93 L Oximetry 04/27/17 04/27/17 04/27/17 00:29 03:50 04:00 Temperature 96.9 F L Pulse Rate 96 101 H Pulse Rate [ 109 H Pulse Oximetery ] Respiratory 18 Rate Blood Pressure Blood Pressure 128/59 [Left Arm] Blood Pressure [Right Arm] O2 Sat by Pulse 90 L Oximetry 04/27/17 04/27/17 04/27/17 04:01 08:09 08:23 Temperature Pulse Rate 110 H 104 H 100 Pulse Rate [ Pulse Oximetery ] Respiratory Rate Blood Pressure Blood Pressure [Left Arm] Blood Pressure [Right Arm] O2 Sat by Pulse Oximetry 04/27/17 04/27/17 04/27/17 09:00 11:19 11:28 Temperature 97.1 F L Pulse Rate 110 H 110 H Pulse Rate [ 109 H Pulse Oximetery ] Respiratory 18 Rate Blood Pressure Blood Pressure 130/64 [Left Arm] Blood Pressure [Right Arm] O2 Sat by Pulse 90 L Oximetry 04/27/17 04/27/17 04/27/17 12:19 16:00 16:11 Temperature Pulse Rate 104 H Pulse Rate [ 118 H 118 H Pulse Oximetery ] Respiratory 19 18 Rate Blood Pressure Blood Pressure 134/60 124/62 [Left Arm] Blood Pressure [Right Arm] O2 Sat by Pulse 90 L 91 L Oximetry 04/27/17 04/27/17 04/27/17 16:27 19:51 20:06 Temperature Pulse Rate 104 H 106 H 105 H Pulse Rate [ Pulse Oximetery ] Respiratory Rate Blood Pressure Blood Pressure [Left Arm] Blood Pressure [Right Arm] O2 Sat by Pulse Oximetry 04/27/17 04/28/17 04/28/17 23:00 00:00 00:22 Temperature 97.3 F L Pulse Rate 104 H Pulse Rate [ 110 H 110 H Pulse Oximetery ] Respiratory 18 18 Rate Blood Pressure Blood Pressure 154/82 [Left Arm] Blood Pressure [Right Arm] O2 Sat by Pulse 90 L Oximetry 04/28/17 04/28/17 04/28/17 00:33 06:27 06:42 Temperature Pulse Rate 108 H 100 Pulse Rate [ 106 H Pulse Oximetery ] Respiratory 16 Rate Blood Pressure Blood Pressure 140/75 [Left Arm] Blood Pressure [Right Arm] O2 Sat by Pulse 90 L Oximetry 04/28/17 04/28/17 04/28/17 06:52 08:30 08:32 Temperature 98.4 F Pulse Rate 100 Pulse Rate [ 108 H Pulse Oximetery ] Respiratory 20 20 Rate Blood Pressure Blood Pressure 147/69 [Left Arm] Blood Pressure [Right Arm] O2 Sat by Pulse 90 L Oximetry 04/28/17 04/28/17 04/28/17 11:40 11:51 12:00 Temperature 97.7 F Pulse Rate 102 H 104 H Pulse Rate [ 114 H Pulse Oximetery ] Respiratory 20 Rate Blood Pressure Blood Pressure 149/80 [Left Arm] Blood Pressure [Right Arm] O2 Sat by Pulse 89 L Oximetry 04/28/17 04/28/17 04/28/17 15:36 15:41 15:50 Temperature 97.8 F Pulse Rate 111 H 110 H Pulse Rate [ 110 H Pulse Oximetery ] Respiratory 20 Rate Blood Pressure Blood Pressure 155/71 [Left Arm] Blood Pressure [Right Arm] O2 Sat by Pulse 90 L Oximetry 04/28/17 04/28/17 04/28/17 20:00 20:52 21:04 Temperature 98.2 F Pulse Rate 108 H 110 H Pulse Rate [ 113 H Pulse Oximetery ] Respiratory 20 Rate Blood Pressure Blood Pressure 152/79 [Left Arm] Blood Pressure [Right Arm] O2 Sat by Pulse 91 L Oximetry 04/29/17 04/29/17 04/29/17 00:00 00:20 00:38 Temperature 98.0 F Pulse Rate 108 H 104 H Pulse Rate [ 106 H Pulse Oximetery ] Respiratory 18 Rate Blood Pressure Blood Pressure 132/67 [Left Arm] Blood Pressure [Right Arm] O2 Sat by Pulse 93 L Oximetry 04/29/17 04/29/17 04/29/17 04:00 07:57 08:13 Temperature 98.6 F Pulse Rate 101 H 100 Pulse Rate [ 100 Pulse Oximetery ] Respiratory 18 Rate Blood Pressure Blood Pressure 133/78 [Left Arm] Blood Pressure [Right Arm] O2 Sat by Pulse 90 L Oximetry 04/29/17 04/29/17 04/29/17 08:14 11:25 11:36 Temperature 97.6 F Pulse Rate 104 H 100 Pulse Rate [ 109 H Pulse Oximetery ] Respiratory 20 Rate Blood Pressure Blood Pressure 132/67 [Left Arm] Blood Pressure [Right Arm] O2 Sat by Pulse Oximetry Total time taken greater than 35 minutes including 18 minutes for counseling and coordination of care. Patient Condition at Discharge: Stable Plan - Discharge Summary New Discharge Prescriptions: New Ceftazidime [Fortaz] 2 gm IVPB Q8HR #42 vial predniSONE See Taper PO DAILY #27 tab Continue Tamsulosin [Flomax] 0.4 mg PO HS Aspirin 81 mg PO HS Fluticasone/Salmeterol [Advair 500-50 Diskus] 1 puff INHALATION RT-BID Tiotropium [place] [Spiriva] 1 cap INHALATION RT-DAILY Simvastatin [Zocor] 10 mg PO HS guaiFENesin-DM 600/30MG [Mucinex Dm] 1 tab PO DAILY Melatonin 3 mg PO HS busPIRone HCl [Buspar] 5 mg PO BID Calcium Carbonate [Calcium] 600 mg PO DAILY Albuterol Nebulized [Ventolin Nebulized] 2.5 mg INHALATION RT-QID predniSONE 10 mg PO DAILY #30 tab Citalopram Hydrobromide [CeleXA] 40 mg PO HS Nystatin 100,000 Unit/ml Susp [Mycostatin Oral Susp] 4 ml PO QID Furosemide [Lasix] 40 mg PO DAILY Multivit-Min/FA/Lycopen/Lutein [Centrum Silver Tablet] 1 tab PO DAILY Discontinued Ciprofloxacin HCl [Cipro] 500 mg PO Q12HR Discharge Medication List Aspirin 81 mg PO HS 06/02/14 [History] Fluticasone/Salmeterol [Advair 500-50 Diskus] 1 puff INHALATION RT-BID 06/02/14 [History] Tamsulosin [Flomax] 0.4 mg PO HS 06/02/14 [History] Tiotropium [place] [Spiriva] 1 cap INHALATION RT-DAILY 06/02/14 [History] Simvastatin [Zocor] 10 mg PO HS 08/27/14 [History] guaiFENesin-DM 600/30MG [Mucinex Dm] 1 tab PO DAILY 02/13/16 [History] Calcium Carbonate [Calcium] 600 mg PO DAILY 02/24/17 [History] Melatonin 3 mg PO HS 02/24/17 [History] busPIRone HCl [Buspar] 5 mg PO BID 02/24/17 [History] Albuterol Nebulized [Ventolin Nebulized] 2.5 mg INHALATION RT-QID 04/01/17 [ History] predniSONE 10 mg PO DAILY #30 tab 04/12/17 [Rx] Citalopram Hydrobromide [CeleXA] 40 mg PO HS 04/24/17 [History] Furosemide [Lasix] 40 mg PO DAILY 04/24/17 [History] Multivit-Min/FA/Lycopen/Lutein [Centrum Silver Tablet] 1 tab PO DAILY 04/24/17 [ History] Nystatin 100,000 Unit/ml Susp [Mycostatin Oral Susp] 4 ml PO QID 04/24/17 [ History] Ceftazidime [Fortaz] 2 gm IVPB Q8HR #42 vial 04/26/17 [Rx] predniSONE See Taper PO DAILY #27 tab 04/29/17 [Rx] Follow up Appointment(s)/Referral(s): Lily Carolina MD [Primary Care Provider] - 1-2 days Taras Marshall MD [STAFF PHYSICIAN] - As Needed Charleen Dennison MD [STAFF PHYSICIAN] - 05/03/17 1:00 pm (Please keep previous appointment at this time. ) [facility] Visiting Nurse, [NON-STAFF] - Patient Instructions/Handouts: MRSA (Methicillin-Resistant Staphylococcus Aureus) (DC), Peripherally Inserted Central Catheters and Midline Catheters (DC) , COPD (Chronic Obstructive Pulmonary Disease) (DC) Discharge Disposition: TRANSFER TO SNF/F
--- NOTE | 2017-04-29 14:21 | P.PN ---
Subjective Progress Note Date: 04/29/17 Principal diagnosis: Extensive right lung pneumonia secondary to pseudomonas aeruginosa. On 04/25/2017 I'm seeing this patient for a follow-up regarding his acute COPD exacerbation. As mentioned earlier the patient has advanced COPD. The patient was hospitalized for an extensive right lung pneumonia back in March 2017 and the sputum was growing Pseudomonas. He was treated as an inpatient. He was discharged home on oral ciprofloxacin. He continued to have positive pseudomonas aeruginosa in his sputum. He was having worsening shortness of breath and his COPD was exacerbating. Based on that the patient had another sputum analysis an outpatient basis and the patient was found to have Pseudomonas and Aspergillus. I was concerned of cavitation for that reason a ordered a CAT scan of the chest and I started the patient on a combination of IV cefepime and oral Sporanox. ID consultation is still pending for now. Meanwhile, the CAT scan of the chest was done and showed extensive and advanced centrilobular emphysema scattered areas of fibrosis in addition to consolidation of the right upper lobe consistent with pneumonia. No active cavitation was seen. Small mid lung pleural fluid was also noted. Clinically the patient is feeling better. The patient is less short of breath compared to yesterday. He is still on 4 L of oxygen nasal cannula. He is on bronchodilators and steroids. Cough and congestion has subsided compared to yesterday. On 04/26/2017, the patient is being seen for a follow-up. The patient is feeling much better compared to yesterday. His progressively improving. His cough is congested and she is not producing much of sputum. No fever chills or night sweats. No chest pain. The patient was seen by infectious disease. There is consensus is that the Pseudomonas was cultured earlier was resistant to oral ciprofloxacin. The patient was ultimately switched to IV Fortaz based on the available [place] sees. I discussed the case with Dr. Marshall and we decided also to stop the Sporanox. The patient is afebrile. The patient is hemodynamically stable. The patient on IV Solu-Medrol. The patient will need a decline along with outpatient antibiotic treatment. He is doing well. No chest pain. No swelling lower extremities. No other complaint otherwise for now. On 04/27/2017 I'm seeing this patient for a follow-up. He is progressively getting better. Afebrile. Hemodynamically stable. He is currently off Sporanox. He is taking IV Fortaz. IV Solu Medrol will be tapered off. No change in mental status. No other significant events over the past 24 hours. Awaiting a PICC line insertion. On 04/28/2017, patient is being seen for a follow-up. The patient is doing well. No new complaints. The PICC line is to be inserted tomorrow. Remain IV Fortaz 2 g every 8 hours. No fever. No chills. No chest pain. Took the patient off the IV Solu Medrol and start him on a prednisone burst taper. No nausea. No vomiting. No diarrhea. Tolerating the antibiotic well. No other significant events over the past 24 hours. Patient was reevaluated today on 04/29/2017, doing well, PICC line is in place, patient will be discharged home on Fortaz. Back to his 6 L nasal cannula. Discharge planning today is in progress. Objective - Vital Signs Vital signs: Vital Signs Temp 97.6 F 04/29/17 08:14 Pulse 100 04/29/17 11:36 Resp 20 04/29/17 08:14 BP 132/67 04/29/17 08:14 Pulse Ox 90 L 04/29/17 04:00 Intake & Output 04/28/17 04/29/17 04/29/17 18:59 06:59 18:59 Intake Total 700 240 220 Output Total 1200 250 550 Balance -500 -10 -330 Weight 78.6 kg Intake: IV 100 cefTAZidime 2 gm In 100 Sodium Chloride 0.9% 100 ml @ 100 mls/hr IVPB Q8HR [facility] Rx#:[id number] Oral 600 240 220 Output: Urine 1200 250 550 Other: Voiding Method Urinal Urinal # Voids 1 - Exam GENERAL EXAM: Alert, fairly comfortable in no acute respiratory distress. EYES: Normal reaction of pupils, equal size. NOSE: Clear with pink turbinates. THROAT: No erythema or exudates. NECK: No masses, no JVD. CHEST: No chest wall deformity. LUNGS: Equal air entry coarse crackles in the bilateral posterior bases. Diminished. CVS: S1 and S2 normal with no audible murmur, regular rhythm. ABDOMEN: No hepatosplenomegaly, normal bowel sounds, no guarding or rigidity. SPINE: No scoliosis or deformity SKIN: No rashes CENTRAL NERVOUS SYSTEM: No focal deficits, tone is normal in all 4 extremities. EXTREMITIES: There is no peripheral edema. No clubbing, no cyanosis. Peripheral pulses are intact. - Labs CBC & Chem 7: 04/28/17 05:22 04/28/17 05:22 Labs: Abnormal Lab Results - Last 24 Hours (Table) 04/28/17 04/29/17 Range/Units 20:29 11:54 POC Glucose (mg/dL) 132 H 112 H (75-99) mg/dL Microbiology - Last 24 Hours (Table) 04/24/17 18:56 Blood Culture - Preliminary Blood No Growth after 96 hours Assessment and Plan Assessment: #1 extensive right lung pulmonary consolidation secondary to pseudomonas aeruginosa. No clear-cut cavitation on the CAT scan of the chest. Most recent sputum analysis showed persistence of pseudomonas aeruginosa and that is also growth of some Aspergillus fungal elements. #2 advanced COPD #3 Acute exacerbation of severe oxygen dependent chronic obstructive pulmonary disease. #4 chronic smoking, 40 year 2 pack per day smoking however history however quit back in 1991. #5 History of prostate cancer treated with radiation therapy. Currently on Flomax. #6 History of anxiety/depression. Currently on BuSpar and Celexa. #7 Hyperlipidemia. Currently on simvastatin. #8 Elevated troponins, nonspecific, not related to any acute cardiac event Plan agree with discharge planning today, follow-up with Dr. Dennison as scheduled in the next few days. Agree with IV antibiotics on outpatient basis, patient will be on Fortaz. Time with Patient: Less than 30
== END 2017-04-29 14:10 | disposition home health service (06) | DRG 177 ==
LOC: EC 11:35 → 6SEL 15:47
PROVIDERS: ADMIT Internal Medicine; ATTEND Internal Medicine
PROC: 02HV33Z Insertion of Infusion Device into Superior Vena Cava, Percutaneous Approach (ICD-10-PCS; principal; 2017-04-29 11:00)
DX: J15.1 Pneumonia due to Pseudomonas (principal); J96.21 Acute and chronic respiratory failure with hypoxia; B44.9 Aspergillosis, unspecified; J84.10 Pulmonary fibrosis, unspecified; J15.212 Pneumonia due to Methicillin resistant Staphylococcus aureus; J43.2 Centrilobular emphysema; D64.9 Anemia, unspecified; M50.30 Other cervical disc degeneration, unspecified cervical region; E78.5 Hyperlipidemia, unspecified; I10 Essential (primary) hypertension; F32.9 Major depressive disorder, single episode, unspecified; F41.9 Anxiety disorder, unspecified; R74.8 Abnormal levels of other serum enzymes; Z79.82 Long term (current) use of aspirin; Z79.52 Long term (current) use of systemic steroids; Z79.51 Long term (current) use of inhaled steroids; Z79.899 Other long term (current) drug therapy; Z85.46 Personal history of malignant neoplasm of prostate; Z99.81 Dependence on supplemental oxygen; Z92.3 Personal history of irradiation; Z85.828 Personal history of other malignant neoplasm of skin; Z16.24 Resistance to multiple antibiotics; Z87.891 Personal history of nicotine dependence; Z90.49 Acquired absence of other specified parts of digestive tract
CPT/HCPCS: 36415; 36569; 71046; 71260; 76937; 77001; 80048; 80053; 80061; 82550; 82553; 83036; 83735; 83880; 84484; 85025; 85610; 85730; 87040; 87070; 87077; 87186; 87205; 93005; 94640; 94760; 96365; 96366; 96367; 96375; 96376; 99285

== ENCOUNTER 2018-01-04 10:28 | Inpatient (IN) | payer MEDICARE, OTHER ==
[2018-01-04] MEDS ORDERED: ACETAMINOPHEN IV (For NPO) 1,000 MG in EMPTY BAG 1 BAG IVPB STA (10:34)
[2018-01-04] MEDS ORDERED: IPRATROPIUM-ALBUTEROL 3 ML NEB INHALATION STA ×2 (10:36→10:37)
--- NOTE | 2018-01-04 10:43 | ED ---
General Adult HPI - General Chief complaint: Shortness of Breath Stated complaint: RAFIQ Time Seen by Provider: 01/04/18 10:30 Source: patient, EMS, RN notes reviewed Mode of arrival: EMS Limitations: no limitations - History of Present Illness Initial comments: Patient is a pleasant 82-year-old male presenting to the emergency Department with complaints of difficulty in breathing. Onset of symptoms was around a week ago. Patient does have cough with occasional colored sputum. No known fevers. Patient did see his doctor just the other day and was started on theophylline and steroids. Patient is also having some mild abdominal discomfort. Patient originally denied nausea however now states he does have some nausea. Patient did have 3 or 4 episodes of diarrhea yesterday. No chest pain. - Related Data Home Medications Medication Instructions Recorded Confirmed Aspirin 81 mg PO HS 06/02/14 01/04/18 Fluticasone/Salmeterol [Advair 1 puff INHALATION RT-BID 06/02/14 01/04/18 500-50 Diskus] Tamsulosin [Flomax] 0.4 mg PO HS 06/02/14 01/04/18 Simvastatin [Zocor] 10 mg PO HS 08/27/14 01/04/18 guaiFENesin-DM 600/30MG [Mucinex 1 tab PO DAILY 02/13/16 01/04/18 Dm] Calcium Carbonate [Calcium] 600 mg PO DAILY 02/24/17 01/04/18 Melatonin 3 mg PO HS 02/24/17 01/04/18 busPIRone HCl [Buspar] 5 mg PO BID 02/24/17 01/04/18 Albuterol Nebulized [Ventolin 2.5 mg INHALATION RT-TID 04/01/17 01/04/18 Nebulized] Citalopram Hydrobromide [CeleXA] 40 mg PO HS 04/24/17 01/04/18 Furosemide [Lasix] 40 mg PO DAILY 04/24/17 01/04/18 Multivit-Min/FA/Lycopen/Lutein 1 tab PO DAILY 04/24/17 01/04/18 [Centrum Silver Tablet] Nystatin 100,000 Unit/ml Susp 4 ml PO QID 04/24/17 01/04/18 [Mycostatin Oral Susp] ALPRAZolam [Xanax] 1 mg PO DAILY PRN 01/04/18 01/04/18 Theophylline 12 Hour [Yevgeniy-Dur] 300 mg PO BID 01/04/18 01/04/18 Tiotropium [place] [Spiriva] 1 cap INHALATION RT-DAILY 01/04/18 01/04/18 diphenhydrAMINE [Benadryl] 25 mg PO HS PRN 01/04/18 01/04/18 Previous Rx's Medication Instructions Recorded predniSONE 10 mg PO DAILY #30 tab 04/12/17 Allergies Allergy/AdvReac Type Severity Reaction Status Date / Time No Known Allergies Allergy Verified 01/04/18 12:07 Review of Systems ROS Statement: Those systems with pertinent positive or pertinent negative responses have been documented in the HPI. ROS Other: All systems not noted in ROS Statement are negative. Constitutional: Denies: fever Eyes: Denies: eye pain ENT: Denies: ear pain Respiratory: Reports: cough, dyspnea Cardiovascular: Denies: chest pain Endocrine: Denies: fatigue Gastrointestinal: Reports: abdominal pain, nausea, diarrhea. Denies: vomiting Genitourinary: Denies: dysuria Musculoskeletal: Denies: back pain Skin: Denies: rash Neurological: Denies: headache Past Medical History Past Medical History: Cancer, COPD, Hyperlipidemia, Pneumonia, Prostate Disorder Additional Past Medical History / Comment(s): Pt recently admitted on 02/23/17 with bilateral pneumonia. Other hx: COPD, pneumonia with sepsis, 2007 prostate cancer treated by radiation therapy, skin cancer with removal, normocytic anemia, cervical DDD. 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 Past Anesthesia/Blood Transfusion Reactions: No Reported Reaction Past Psychological History: Anxiety, Depression Smoking Status: Former smoker Past Alcohol Use History: None Reported Past Drug Use History: None Reported - Past Family History Mother Family Medical History: No Reported History Father Family Medical History: Cancer Additional Family Medical History / Comment(s): spine CA which spread to bone CA General Exam Limitations: no limitations General appearance: alert, in no apparent distress Head exam: Present: atraumatic Eye exam: Present: normal appearance, PERRL ENT exam: Present: normal oropharynx Neck exam: Present: normal inspection Respiratory exam: Present: wheezes, decreased breath sounds Cardiovascular Exam: Present: tachycardia GI/Abdominal exam: Present: soft, tenderness (Mild diffuse tenderness), normal bowel sounds. Absent: distended, guarding, rebound, rigid, pulsatile mass Extremities exam: Present: normal inspection. Absent: pedal edema, calf tenderness Neurological exam: Present: alert Psychiatric exam: Present: normal affect, normal mood Skin exam: Present: normal color Course Vital Signs 01/04/18 01/04/18 01/04/18 10:31 10:39 10:49 Temperature 100.9 F H Pulse Rate 129 H 130 H 142 H Respiratory 24 Rate Blood Pressure 131/65 O2 Sat by Pulse 94 L Oximetry - Reevaluation(s) Reevaluation #1: 01/04/18 12:19 Patient does meet criteria for severe sepsis diagnosed at 12:19 PM. Blood culture and lactic acid have been ordered. IV antibiotics will be ordered. Medical Decision Making - Medical Decision Making Patient reevaluated and resting comfortably in bed. Patient does feel somewhat better. Patient and family are updated on results and plan. Case was discussed in detail with Dr. Cuevas, who will admit for Dr. Manriquez. He does not feel surgical or GI consult as necessary at this time. Consult will be placed for Dr. cazares - Lab Data Result diagrams: 01/04/18 10:50 01/04/18 10:50 Lab Results 01/04/18 01/04/18 01/04/18 Range/Units 10:50 10:50 10:50 WBC 26.3 H (3.8-10.6) k/uL RBC 4.24 L (4.30-5.90) m/uL Hgb 11.8 L (13.0-17.5) gm/dL Hct 37.3 L (39.0-53.0) % MCV 88.0 (80.0-100.0) fL MCH 28.0 (25.0-35.0) pg MCHC 31.8 (31.0-37.0) g/dL RDW 13.9 (11.5-15.5) % Plt Count 288 (150-450) k/uL Neutrophils % 90 % Lymphocytes % 4 % Monocytes % 4 % Eosinophils % 2 % Basophils % 0 % Neutrophils # 23.5 H (1.3-7.7) k/uL Lymphocytes # 1.1 (1.0-4.8) k/uL Monocytes # 1.1 H (0-1.0) k/uL Eosinophils # 0.4 (0-0.7) k/uL Basophils # 0.1 (0-0.2) k/uL Sodium 133 L (137-145) mmol/L Potassium 4.2 (3.5-5.1) mmol/L Chloride 95 L (98-107) mmol/L Carbon Dioxide 30 (22-30) mmol/L Anion Gap 8 mmol/L BUN 29 H (9-20) mg/dL Creatinine 1.10 (0.66-1.25) mg/dL Est GFR (CKD-EPI)AfAm 72 (>60 ml/min/1.73 sqM) Est GFR (CKD-EPI)NonAf 62 (>60 ml/min/1.73 sqM) Glucose 106 H (74-99) mg/dL Plasma Lactic Acid Giovanni 3.7 H* (0.7-2.0) mmol/L Calcium 8.3 L (8.4-10.2) mg/dL Total Bilirubin 0.4 (0.2-1.3) mg/dL AST 28 (17-59) U/L ALT 23 (21-72) U/L Alkaline Phosphatase 80 (38-126) U/L Total Protein 5.7 L (6.3-8.2) g/dL Albumin 2.9 L (3.5-5.0) g/dL Amylase 34 (30-110) U/L Lipase 44 (23-300) U/L Theophylline 14.5 ug/mL - Radiology Data Radiology results: report reviewed (Computed tomography scan of the abdomen and pelvis shows thickening of the ascending and descending colon.), image reviewed (Chest x-ray shows fibrosis, COPD) Critical Care Time Critical Care Time: Yes Total Critical Care Time: 33 Disposition Clinical Impression: Acute exacerbation of chronic obstructive airways disease, Colitis Disposition: ADMITTED IP TO THIS [facility] Condition: Serious Referrals: Lily Carolina MD [Primary Care Provider] - 1-2 days Decision Time: 12:22
[2018-01-04] MEDS ORDERED: ONDANSETRON 4 MG/2 ML VIAL IVP STA (10:45)
[2018-01-04] MEDS ORDERED: SODIUM CHLORIDE 0.9% 500 ML 500 ML IV SCH (10:45)
[2018-01-04 11:26] LABS: Albumin 2.9 g/dL (3.5-5.0); Calcium 8.3 mg/dL (8.4-10.2); Potassium 4.2 mmol/L (3.5-5.1); Theophylline 14.5 ug/mL; Total Bilirubin 0.4 mg/dL (0.2-1.3); Total Protein 5.7 g/dL (6.3-8.2)
[2018-01-04 11:34] LABS: Basophils # (A) 0.1 k/uL (0-0.2); Basophils % (A) 0 %; Eosinophils # (A) 0.4 k/uL (0-0.7); Eosinophils % (A) 2 %; HCT 37.3 % (39.0-53.0); HGB 11.8 gm/dL (13.0-17.5); Lymphocytes # (A) 1.1 k/uL (1.0-4.8); Lymphocytes % (A) 4 %; MCHC 31.8 g/dL (31.0-37.0); Monocytes # (A) 1.1 k/uL (0-1.0); Monocytes % (A) 4 %; Neutrophils # (A) 23.5 k/uL (1.3-7.7); Neutrophils % (A) 90 %; Platelet Count 288 k/uL (150-450); RBC 4.24 m/uL (4.30-5.90); RDW 13.9 % (11.5-15.5); WBC 26.3 k/uL (3.8-10.6)
[2018-01-04 11:54] LABS: Partial Thromboplastin Time 24.3 sec (22.0-30.0); Prothrombin Time 9.9 sec (9.0-12.0)
--- NOTE | 2018-01-04 12:04 | XR ---
EXAMINATION TYPE: XR chest 2V DATE OF EXAM: 01/04/2018 HISTORY: Fever. REFERENCE: Previous study dated 04/24/2017. FINDINGS: The lungs are overinflated. There are chronic interstitial changes. Previously described in filtrates have largely cleared. There is some scarring in the right upper lobe. The heart is not enla rged. IMPRESSION: 1. COPD. 2. INTERSTITIAL FIBROSIS. 3. IMPROVED AERATION, BOTH LUNGS.
[2018-01-04] MEDS ORDERED: SODIUM CHLORIDE 0.9% 500 ML 500 ML IV STA (12:09)
--- NOTE | 2018-01-04 12:11 | CT ---
EXAMINATION TYPE: CT abdomen pelvis w con DATE OF EXAM: 01/04/2018 REFERENCE: NONE HISTORY: Pain HISTORY: Pelvic pain, RAFIQ REFERENCE: NONE CT DLP: 772.4 mGy Automated exposure control for dose reduction was used. TECHNIQUE: Helical acquisition through the abdomen and pelvis was obtained following the oral ingesti on of without Oral Contrast and following intravenous administration of 100 mL of Isovue 300. The brandon a was reformatted in axial, coronal and sagittal projections. FINDINGS: There are moderate emphysematous changes within the lungs. There is evidence of interstiti al fibrosis. There is no pleural or pericardial fluid. The heart is not enlarged. Within the abdomen, there is a gallstone within the gallbladder. There are calcified granulomas withi n the spleen. The liver is unremarkable. Both adrenal glands are normal. Both kidneys demonstrate function and appear morphologically normal. The pancreas is unremarkable. There is moderate atheromatous calcification of the visualized arterial tree. There is gross thickening of the cecum and proximal ascending colon. There is also marked thickening of part of the distal descending colon and sigmoid colon. The transverse colon is relatively unaffect ed. The appendix is not visualized. Small bowel loops are normal in caliber. The bladder is unremarkable. There are radiation seeds within the prostate gland. There is no free fluid and no free air. The bladder is unremarkable. There is degenerative disc disease, hypertrophic spondylosis and facet arthropathy within the spine. No bony destructive lesion is seen. IMPRESSION: 1. GROSS THICKENING OF MUCH OF THE COLON INCLUDING THE SIGMOID COLON, ASCENDING: AND DESCENDING COLON THIS MAY BE INFECTIOUS OR INFLAMMATORY. PLEASE CORRELATE FOR RECENT ANTIBIOTIC USE OR RECENT RADIATI ON. 2. EMPHYSEMATOUS CHANGE WELL PULMONARY FIBROSIS. 3. CHOLELITHIASIS. 4. EVIDENCE OF OLD GRANULOMATOUS DISEASE.
[2018-01-04] MEDS ORDERED: LEVOFLOXACIN 750MG-D5W PMX 750 MG in DEXTROSE/WATER 1 150ML.BAG IVPB STA (12:25)
[2018-01-04] MEDS ORDERED: IPRATROPIUM-ALBUTEROL 3 ML NEB INHALATION PRN (12:26)
[2018-01-04] MEDS ORDERED: methylPREDNISolone SOD SUCCI 125 MG/2 ML VIAL IV STA (12:26)
[2018-01-04] MEDS: SODIUM CHLORIDE 0.9% 1,000 ML IV SCH ×2 (13:03→22:03)
[2018-01-04] MEDS ORDERED: metroNIDAZOLE-NS PMX 500 MG in SALINE 1 100ML.BAG IVPB ONE (13:15)
[2018-01-04 13:31] LABS: Appearance,Urine Clear (Clear); Bilirubin,Urine Negative (Negative); Blood,Urine Negative (Negative); Color,Urine Yellow; Glucose,Urine (UA) Negative (Negative); Ketones,Urine Negative (Negative); Leukocyte Esterase,Urine Negative (Negative); Nitrite,Urine Negative (Negative); PH, Urine 5.5 (5.0-8.0); Protein,Urine Trace (Negative); Specific Gravity,Urine 1.043 (1.001-1.035); Urobilinogen,Urine <2.0 mg/dL (<2.0)
[2018-01-04] MEDS ORDERED: MORPHINE SULFATE 2 MG/ML SYRINGE IVP STA (14:43)
--- NOTE | 2018-01-04 16:15 | P.CNPUL ---
History of Present Illness Consult date: 01/04/18 Reason for consult: COPD History of present illness: 82-year-old male patient with advanced COPD and previous history of recurrent COPD exacerbation recurrent infection with Pseudomonas maintained on inhaled tobramycin on outpatient basis. The patient is quite debilitated from his COPD and his oxygen dependent at 5 L of oxygen by nasal cannula at baseline. He came to the emergency department because of worsening difficulty breathing over the past 1 week. However he also complained of 4-5 bouts of liquidy diarrhea and diffuse abdominal discomfort and pain with some nausea without emesis. He apparently had 3-4 bouts of diarrhea yesterday. No recent antibiotic intake. No documented fever. CAT scan of the abdomen was done in the ED, and it showed gross thickening of the colon including the sigmoid colon and ascending colon and descending colon. There is considered to be consistent with infectious rather than inflammatory colitis. The patient was started on a combination of Levaquin and Flagyl. Stool for C. diff will be sent. He came in originally with some tachycardia and he responded to IV fluids and the patient's heart rate is down although he remains to be in some degree of sinus tachycardia. No dizziness. He has some leukocytosis with a white cell count of 26.3. Initial lactic acid level was at 3.7. Rest of the blood work including the liver function tests are all within normal limits. Amylase and lipase are within normal limits. Review of Systems Constitutional: Reports fatigue, Reports night sweats, Reports weakness Eyes: denies blurred vision, denies bulging eye, denies decreased vision Ears: deny: decreased hearing, ear discharge, earache, tinnitus Ears, nose, mouth and throat: Denies headache, Denies sore throat Cardiovascular: Reports shortness of breath Respiratory: Reports cough, Reports dyspnea, Reports respiratory infections, Reports wheezing Gastrointestinal: Reports abdominal pain, Reports diarrhea Genitourinary: Reports as per HPI Musculoskeletal: Reports as per HPI Musculoskeletal: absent: ankle pain, ankle stiffness, ankle swelling Integumentary: Denies pruritus, Denies rash Neurological: Reports as per HPI Psychiatric: Reports as per HPI Endocrine: Reports as per HPI, Reports fatigue Hematologic/Lymphatic: Reports as per HPI Allergic/Immunologic: Reports as per HPI Past Medical History Past Medical History: Cancer, COPD, Hyperlipidemia, Pneumonia, Prostate Disorder Additional Past Medical History / Comment(s): Pt recently admitted on 02/23/17 with bilateral pneumonia. Other hx: COPD, previous history of pulmonary infections with Pseudomonas and the patient has been maintained on inhaled tobramycin, previous history of MRSA lung infection, pneumonia with sepsis, 2007 prostate cancer treated by radiation therapy, skin cancer with removal, normocytic anemia, cervical DDD. 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 Past Anesthesia/Blood Transfusion Reactions: No Reported Reaction Past Psychological History: Anxiety, Depression Smoking Status: Former smoker Past Alcohol Use History: None Reported Past Drug Use History: None Reported - Past Family History Mother Family Medical History: No Reported History Father Family Medical History: Cancer Additional Family Medical History / Comment(s): spine CA which spread to bone CA Medications and Allergies Home Medications Medication Instructions Recorded Confirmed Type Aspirin 81 mg PO HS 06/02/14 01/04/18 History Fluticasone/Salmeterol [Advair 1 puff INHALATION RT-BID 06/02/14 01/04/18 History 500-50 Diskus] Tamsulosin [Flomax] 0.4 mg PO HS 06/02/14 01/04/18 History Simvastatin [Zocor] 10 mg PO HS 08/27/14 01/04/18 History guaiFENesin-DM 600/30MG [Mucinex 1 tab PO DAILY 02/13/16 01/04/18 History Dm] Calcium Carbonate [Calcium] 600 mg PO DAILY 02/24/17 01/04/18 History Melatonin 3 mg PO HS 02/24/17 01/04/18 History busPIRone HCl [Buspar] 5 mg PO BID 02/24/17 01/04/18 History Albuterol Nebulized [Ventolin 2.5 mg INHALATION RT-TID 04/01/17 01/04/18 History Nebulized] Citalopram Hydrobromide [CeleXA] 40 mg PO HS 04/24/17 01/04/18 History Furosemide [Lasix] 40 mg PO DAILY 04/24/17 01/04/18 History Multivit-Min/FA/Lycopen/Lutein 1 tab PO DAILY 04/24/17 01/04/18 History [Centrum Silver Tablet] Nystatin 100,000 Unit/ml Susp 4 ml PO QID 04/24/17 01/04/18 History [Mycostatin Oral Susp] ALPRAZolam [Xanax] 1 mg PO DAILY PRN 01/04/18 01/04/18 History Theophylline 12 Hour [Yevgeniy-Dur] 300 mg PO BID 01/04/18 01/04/18 History Tiotropium [place] [Spiriva] 1 cap INHALATION RT-DAILY 01/04/18 01/04/18 History diphenhydrAMINE [Benadryl] 25 mg PO HS PRN 01/04/18 01/04/18 History predniSONE See Taper PO DAILY 01/04/18 01/04/18 History Allergies Allergy/AdvReac Type Severity Reaction Status Date / Time No Known Allergies Allergy Verified 01/04/18 12:07 Physical Exam Vitals: Vital Signs Temp Pulse Resp BP Pulse Ox 01/04/18 15:30 98.8 F 108 H 18 126/71 96 01/04/18 15:00 109 H 117/62 95 01/04/18 14:30 114 H 118/65 96 01/04/18 14:00 116 H 18 129/72 96 01/04/18 13:30 122 H 18 123/72 95 01/04/18 13:00 122 H 20 117/67 96 01/04/18 11:00 133 H 131/65 93 L 01/04/18 10:49 142 H 01/04/18 10:39 130 H 01/04/18 10:38 20 01/04/18 10:31 100.9 F H 129 H 24 131/65 94 L Intake and Output 01/04/18 01/04/18 01/04/18 06:59 14:59 22:59 Other: Weight 72.575 kg GENERAL EXAM: Alert, fairly comfortable in no acute respiratory distress. EYES: Normal reaction of pupils, equal size. NOSE: Clear with pink turbinates. THROAT: No erythema or exudates. NECK: No masses, no JVD. CHEST: No chest wall deformity. LUNGS: Equal air entry coarse crackles in the bilateral posterior bases. Diminished bilaterally with scattered expiratory wheezes throughout the lung pichardo bilaterally CVS: S1 and S2 normal with no audible murmur, regular rhythm. ABDOMEN: No hepatosplenomegaly, normal bowel sounds, no guarding or rigidity. SPINE: No scoliosis or deformity SKIN: No rashes CENTRAL NERVOUS SYSTEM: No focal deficits, tone is normal in all 4 extremities. EXTREMITIES: There is no peripheral edema. No clubbing, no cyanosis. Peripheral pulses are intact. Results - Laboratory Findings CBC and BMP: 01/04/18 10:50 01/04/18 10:50 PT/INR, D-dimer PT 9.9 sec (9.0-12.0) 01/04/18 10:50 INR 1.0 (<1.2) 01/04/18 10:50 Abnormal lab findings: Abnormal Labs 01/04/18 01/04/18 01/04/18 10:50 10:50 10:50 WBC 26.3 H RBC 4.24 L Hgb 11.8 L Hct 37.3 L Neutrophils # 23.5 H Monocytes # 1.1 H Sodium 133 L Chloride 95 L BUN 29 H Glucose 106 H Plasma Lactic Acid Giovanni 3.7 H* Calcium 8.3 L Total Protein 5.7 L Albumin 2.9 L Ur Specific [place] Urine Protein 01/04/18 12:55 WBC RBC Hgb Hct Neutrophils # Monocytes # Sodium Chloride BUN Glucose Plasma Lactic Acid Giovanni Calcium Total Protein Albumin Ur Specific [place] 1.043 H Urine Protein Trace H - Diagnostic Findings Chest x-ray: image reviewed Assessment and Plan Plan: Assessment 1 acute colitis with secondary acute diarrhea and leukocytosis. Rule out bacterial colitis including the possibility of C. diff colitis. 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 Check stool for C. diff. IV fluids with normal saline at the rate of 100 mL an hour. Blood cultures. Cover the patient empirically with Flagyl IV and add Levaquin also. Resume outpatient medications including DuoNeb nebulized treatments around the clock. We'll continue to follow
[2018-01-04] MEDS: IPRATROPIUM-ALBUTEROL 3 ML NEB INHALATION SCH ×2 (16:31→20:41)
[2018-01-04] MEDS: methylPREDNISolone SOD SUCCI 125 MG/2 ML VIAL IV SCH ×2 (17:17→23:05)
[2018-01-04] MEDS: busPIRone HCl 5 MG TAB PO SCH (20:01)
[2018-01-04] MEDS: ATORVASTATIN 10 MG TAB PO SCH (20:01)
[2018-01-04] MEDS: ASPIRIN 81 MG PO SCH (20:01)
[2018-01-04] MEDS: CITALOPRAM HYDROBROMIDE 20 MG TAB PO SCH (20:02)
[2018-01-04] MEDS: MELATONIN 3 MG TABLET PO SCH (20:03)
[2018-01-04 20:40] LABS: Glucose,Whole Blood 168 mg/dL (75-99)
[2018-01-04] MEDS: INSULIN ASPART 100 UNIT/ML 1 ML 10 ML VIAL SQ SCH (21:06)
[2018-01-04] MEDS: ALPRAZolam 1 MG TAB PO PRN (22:01)
[2018-01-04] MEDS: metroNIDAZOLE-NS PMX 500 MG in SALINE 1 100ML.BAG IVPB SCH (23:07)
--- NOTE | 2018-01-05 00:21 | P.HPIM ---
History of Present Illness H&P Date: 01/04/18 Chief Complaint: Abdominal pain Patient is a 82-year-old male with a known history of COPD, hyperlipidemia and history of Pseudomonas pneumonia diagnosed some time in April 2017 and is currently maintained on inhaled tobramycin every other month as per ID recommendations came to ER with complaints of abdominal pain and diarrhea. Patient did have diarrhea for the past 2 days and he did take Imodium at home. Patient does have nausea. No episodes of vomiting. 3-4 loose stools yesterday. Patient denied abdominal pain last night which has been getting worse and made him come to ER. Denied any hematemesis or melena. Denied any gross blood in the stool. Patient does have fever with T-max 100.9 on admission. Patient was tachycardic on admission. Patient was also having difficulty breathing while in the ER. Does have cough with whitish to light yellow sputum production. No change in color recently. Patient did see his doctor 2 days ago and was started on theophylline and steroids. Patient does have COPD oxygen dependent file it with another cannula. CT of the abdomen pelvis showed in the ER showed gross thickening of the colon including sigmoid colon and descending colon .. Consistent with infectious rather than intermittently colitis. Emphysematous changes as well as pulmonary fibrosis. Cholelithiasis and evidence of old granulomatous disease. Chest x-ray showed improved aeration and pulmonary fibrosis. EKG showed sinus tachycardia WBC 26.3 Lactic acid 3.7 Patient was started on antibiotics in the form of Levaquin and Flagyl. C. diff toxin was sent. Review of Systems Constitutional: Patient denies any fever or chills . No generalized weakness or weight loss. Abdomen: Patient does have diffuse abdominal pain and nausea. No vomiting. No diarrhea.. Cardiovascular: Patient denies any chest pain or short of breath no palpitations. Respiratory: patient denied any cough is from production. No shortness of breath Neurologic: Patient denied any numbness or tingling headache. Musculoskeletal: Patient denies any complaints of joint swelling or deformity. Skin: Negative Psychiatric: Negative Endocrine: No heat or cold intolerance. No recent weight gain. Genitourinary: No dysuria or hematuria. All other 14 point ROS negative except the above Past Medical History Past Medical History: Cancer, COPD, Hyperlipidemia, Pneumonia, Prostate Disorder Additional Past Medical History / Comment(s): Pt recently admitted on 02/23/17 with bilateral pneumonia. Other hx: COPD, pneumonia with sepsis, 2007 prostate cancer treated by radiation therapy, skin cancer with removal, normocytic anemia, cervical DDD. 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 Past Anesthesia/Blood Transfusion Reactions: No Reported Reaction Past Psychological History: Anxiety, Depression Smoking Status: Former smoker Past Alcohol Use History: None Reported Past Drug Use History: None Reported - Past Family History Mother Family Medical History: No Reported History Father Family Medical History: Cancer Additional Family Medical History / Comment(s): spine CA which spread to bone CA Medications and Allergies Home Medications Medication Instructions Recorded Confirmed Type Aspirin 81 mg PO HS 06/02/14 01/04/18 History Fluticasone/Salmeterol [Advair 1 puff INHALATION RT-BID 06/02/14 01/04/18 History 500-50 Diskus] Tamsulosin [Flomax] 0.4 mg PO HS 06/02/14 01/04/18 History Simvastatin [Zocor] 10 mg PO HS 08/27/14 01/04/18 History guaiFENesin-DM 600/30MG [Mucinex 1 tab PO DAILY 02/13/16 01/04/18 History Dm] Calcium Carbonate [Calcium] 600 mg PO DAILY 02/24/17 01/04/18 History Melatonin 3 mg PO HS 02/24/17 01/04/18 History busPIRone HCl [Buspar] 5 mg PO BID 02/24/17 01/04/18 History Albuterol Nebulized [Ventolin 2.5 mg INHALATION RT-TID 04/01/17 01/04/18 History Nebulized] Citalopram Hydrobromide [CeleXA] 40 mg PO HS 04/24/17 01/04/18 History Furosemide [Lasix] 40 mg PO DAILY 04/24/17 01/04/18 History Multivit-Min/FA/Lycopen/Lutein 1 tab PO DAILY 04/24/17 01/04/18 History [Centrum Silver Tablet] Nystatin 100,000 Unit/ml Susp 4 ml PO QID 04/24/17 01/04/18 History [Mycostatin Oral Susp] ALPRAZolam [Xanax] 1 mg PO DAILY PRN 01/04/18 01/04/18 History Theophylline 12 Hour [Yevgeniy-Dur] 300 mg PO BID 01/04/18 01/04/18 History Tiotropium Barry [Spiriva] 1 cap INHALATION RT-DAILY 01/04/18 01/04/18 History diphenhydrAMINE [Benadryl] 25 mg PO HS PRN 01/04/18 01/04/18 History predniSONE See Taper PO DAILY 01/04/18 01/04/18 History Allergies Allergy/AdvReac Type Severity Reaction Status Date / Time No Known Allergies Allergy Verified 01/04/18 12:07 Physical Exam Vitals: Vital Signs Temp Pulse Resp BP Pulse Ox 01/04/18 13:00 122 H 20 117/67 96 01/04/18 11:00 133 H 131/65 93 L 01/04/18 10:49 142 H 01/04/18 10:39 130 H 01/04/18 10:38 20 01/04/18 10:31 100.9 F H 129 H 24 131/65 94 L Intake and Output 01/03/18 01/04/18 01/04/18 22:59 06:59 14:59 Other: Weight 72.575 kg PHYSICAL EXAMINATION: Patient is lying in the bed comfortably, no acute distress, awake alert and oriented.. HEENT: Normocephalic. Neck is supple. Pupils reactive. Nostrils clear. Oral cavity is moist. Ears reveal no drainage. Neck reveals no JVD, carotid bruits, or thyromegaly. CHEST EXAMINATION: Trachea is central. Symmetrical expansion. Bilateral air entry present. No wheezing. Prolonged expiration.. CARDIAC: Normal S1, S2 with no gallops. No murmurs ABDOMEN: Soft. Lower abdominal tenderness. No guarding no rigidity. Bowel sounds normal. No organomegaly. No abdominal bruits. Extremities: reveal no edema. No clubbing or cyanosis Neurologically awake, alert, oriented x3 with well-coordinated movements. No focal deficits noted Skin: No rash or skin lesions. Psychiatric: Coperative. Nonsuicidal Musculoskeletal: No joint swelling or deformity. Normal range of motion. Results CBC & Chem 7: 01/04/18 10:50 01/04/18 10:50 Labs: Abnormal Lab Results - Last 24 Hours (Table) 01/04/18 01/04/18 01/04/18 Range/Units 10:50 10:50 10:50 WBC 26.3 H (3.8-10.6) k/uL RBC 4.24 L (4.30-5.90) m/uL Hgb 11.8 L (13.0-17.5) gm/dL Hct 37.3 L (39.0-53.0) % Neutrophils # 23.5 H (1.3-7.7) k/uL Monocytes # 1.1 H (0-1.0) k/uL Sodium 133 L (137-145) mmol/L Chloride 95 L (98-107) mmol/L BUN 29 H (9-20) mg/dL Glucose 106 H (74-99) mg/dL Plasma Lactic Acid Giovanni 3.7 H* (0.7-2.0) mmol/L Calcium 8.3 L (8.4-10.2) mg/dL Total Protein 5.7 L (6.3-8.2) g/dL Albumin 2.9 L (3.5-5.0) g/dL Ur Specific [place] (1.001-1.035) Urine Protein (Negative) 01/04/18 Range/Units 12:55 WBC (3.8-10.6) k/uL RBC (4.30-5.90) m/uL Hgb (13.0-17.5) gm/dL Hct (39.0-53.0) % Neutrophils # (1.3-7.7) k/uL Monocytes # (0-1.0) k/uL Sodium (137-145) mmol/L Chloride (98-107) mmol/L BUN (9-20) mg/dL Glucose (74-99) mg/dL Plasma Lactic Acid Giovanni (0.7-2.0) mmol/L Calcium (8.4-10.2) mg/dL Total Protein (6.3-8.2) g/dL Albumin (3.5-5.0) g/dL Ur Specific [place] 1.043 H (1.001-1.035) Urine Protein Trace H (Negative) Thrombosis Risk Factor Assmnt - DVT/VTE Prophylaxis DVT/VTE Prophylaxis: Pharmacologic Prophylaxis ordered Assessment and Plan Assessment: Sepsis secondary to infectious colitis. Unlikely inflammatory. Rule out C. diff. Lactic acidosis secondary to infection and volume depletion. Severe COPD and chronic hypoxic respiratory failure on file later nausea cannula oxygen. Recent history of Pseudomonas pneumonia and failed antibiotic therapy. Currently on inhaled tobramycin every other month as per ID Pulmonary fibrosis History of prostate cancer with radiation in 2007 and seed implants History of MRSA History of skin cancer remote from right forearm Hyperlipidemia Anxiety/depression Previous history of smoking DVT prophylaxis Plan: Patient will be continued on IV hydration. Continue with antibiotics in the form of Levaquin and Flagyl. C. diff toxin will be sent. Follow blood cultures and continue the home medications breathing treatments and IV steroids. Pulmonary is on board. Further recommendations based on the clinical course Time with Patient: Greater than 30
[2018-01-05 05:58] LABS: Glucose,Whole Blood 132 mg/dL (75-99)
[2018-01-05] MEDS: methylPREDNISolone SOD SUCCI 125 MG/2 ML VIAL IV SCH ×4 (05:58→23:12)
[2018-01-05 06:51] LABS: Basophils % (A) 0 %; Eosinophils % (A) 0 %; HCT 33.3 % (39.0-53.0); HGB 10.3 gm/dL (13.0-17.5); Hypochromasia Slight; Lymphocytes # (A) 0.7 k/uL (1.0-4.8); Lymphocytes % (A) 3 %; MCH 27.6 pg (25.0-35.0); MCHC 31.1 g/dL (31.0-37.0); MCV 88.9 fL (80.0-100.0); Mean Platelet Volume 8.2; Monocytes # (A) 0.5 k/uL (0-1.0); Monocytes % (A) 2 %; Neutrophils # (A) 20.1 k/uL (1.3-7.7); Neutrophils % (A) 94 %; Platelet Count 266 k/uL (150-450); RBC 3.74 m/uL (4.30-5.90); RDW 13.7 % (11.5-15.5); WBC 21.5 k/uL (3.8-10.6)
[2018-01-05] MEDS: INSULIN ASPART 100 UNIT/ML 1 ML 10 ML VIAL SQ SCH ×4 (07:02→21:26)
[2018-01-05 07:12] LABS: Calcium 7.8 mg/dL (8.4-10.2); Potassium 4.3 mmol/L (3.5-5.1)
[2018-01-05] MEDS: IPRATROPIUM-ALBUTEROL 3 ML NEB INHALATION SCH ×4 (08:01→21:14)
[2018-01-05] MEDS: MULTIVITAMINS, THERA 1 EACH TAB PO SCH (10:18)
[2018-01-05] MEDS: SODIUM CHLORIDE 0.9% 1,000 ML IV SCH ×2 (10:18→20:19)
[2018-01-05] MEDS: metroNIDAZOLE-NS PMX 500 MG in SALINE 1 100ML.BAG IVPB SCH ×3 (10:18→23:11)
[2018-01-05] MEDS: busPIRone HCl 5 MG TAB PO SCH ×2 (10:18→20:20)
[2018-01-05] MEDS ORDERED: VANCOMYCIN IV PER PHARMACY 1 EACH MISC MISCELLANE PRN (10:43)
--- NOTE | 2018-01-05 11:27 | P.PN ---
Subjective Progress Note Date: 01/05/18 Principal diagnosis: Acute colitis, diarrhea, leukocytosis, rule out bacterial colitis and C. diff colitis. Acute exacerbation of COPD 82-year-old male patient with advanced COPD and previous history of recurrent COPD exacerbation recurrent infection with Pseudomonas maintained on inhaled tobramycin on outpatient basis. The patient is quite debilitated from his COPD and his oxygen dependent at 5 L of oxygen by nasal cannula at baseline. He came to the emergency department because of worsening difficulty breathing over the past 1 week. However he also complained of 4-5 bouts of liquidy diarrhea and diffuse abdominal discomfort and pain with some nausea without emesis. He apparently had 3-4 bouts of diarrhea yesterday. No recent antibiotic intake. No documented fever. CAT scan of the abdomen was done in the ED, and it showed gross thickening of the colon including the sigmoid colon and ascending colon and descending colon. There is considered to be consistent with infectious rather than inflammatory colitis. The patient was started on a combination of Levaquin and Flagyl. Stool for C. diff will be sent. He came in originally with some tachycardia and he responded to IV fluids and the patient's heart rate is down although he remains to be in some degree of sinus tachycardia. No dizziness. He has some leukocytosis with a white cell count of 26.3. Initial lactic acid level was at 3.7. Rest of the blood work including the liver function tests are all within normal limits. Amylase and lipase are within normal limits. On 01/05/2018 patient seen in follow-up on selective care unit. His diarrhea has slowed down, and we have not been able to collect a stool sample for C. diff. No abdominal pain. No fever, vital signs remain stable. He remains bronchospastic on today's exam, occasional cough, with production of clear phlegm. He remains on IV antibiotics, Levaquin, Flagyl and vancomycin, IV steroids, and nebulized bronchodilators. Right the on 5 L per nasal cannula, his pulse ox of 95%. Urine and blood cultures are negative thus far. Actiq acid has come down to 1.4, he is hemodynamically stable. Objective - Vital Signs Vital signs: Vital Signs Temp 97.7 F 01/05/18 07:32 Pulse 108 H 01/05/18 08:13 Resp 19 01/05/18 07:37 BP 133/74 01/05/18 07:32 Pulse Ox 95 01/05/18 07:32 Intake & Output 01/04/18 01/05/18 01/05/18 18:59 06:59 18:59 Intake Total 260 1750 260 Output Total 800 Balance 260 950 260 Weight 72.575 kg 74.2 kg Intake: Intake, IV Titration 1200 Amount Sodium Chloride 0.9% 1, 1100 000 ml @ 100 mls/hr IV . Q10H JANETTE Rx#:[id number] metroNIDAZOLE-NS PMX 500 100 mg In Saline 1 100ml.bag @ 100 mls/hr IVPB ONCE ONE Rx#:[id number] Oral 260 550 260 Output: Urine 800 Other: Voiding Method Urinal Urinal Urinal - Exam GENERAL EXAM: Alert, fairly comfortable in no acute respiratory distress. EYES: Normal reaction of pupils, equal size. NOSE: Clear with pink turbinates. THROAT: No erythema or exudates. NECK: No masses, no JVD. CHEST: No chest wall deformity. LUNGS: Equal air entry coarse crackles in the bilateral posterior bases. Diminished bilaterally with scattered expiratory wheezes throughout the lung pichardo bilaterally CVS: S1 and S2 normal with no audible murmur, regular rhythm. ABDOMEN: No hepatosplenomegaly, normal bowel sounds, no guarding or rigidity. SPINE: No scoliosis or deformity SKIN: No rashes CENTRAL NERVOUS SYSTEM: No focal deficits, tone is normal in all 4 extremities. EXTREMITIES: There is no peripheral edema. No clubbing, no cyanosis. Peripheral pulses are intact. - Labs CBC & Chem 7: 01/05/18 06:12 01/05/18 06:12 Labs: Abnormal Lab Results - Last 24 Hours (Table) 01/04/18 01/04/18 01/04/18 Range/Units 10:50 10:50 10:50 WBC 26.3 H (3.8-10.6) k/uL RBC 4.24 L (4.30-5.90) m/uL Hgb 11.8 L (13.0-17.5) gm/dL Hct 37.3 L (39.0-53.0) % Neutrophils # 23.5 H (1.3-7.7) k/uL Lymphocytes # (1.0-4.8) k/uL Monocytes # 1.1 H (0-1.0) k/uL Sodium 133 L (137-145) mmol/L Chloride 95 L (98-107) mmol/L Carbon Dioxide (22-30) mmol/L BUN 29 H (9-20) mg/dL Glucose 106 H (74-99) mg/dL POC Glucose (mg/dL) (75-99) mg/dL Plasma Lactic Acid Giovanni 3.7 H* (0.7-2.0) mmol/L Calcium 8.3 L (8.4-10.2) mg/dL Total Protein 5.7 L (6.3-8.2) g/dL Albumin 2.9 L (3.5-5.0) g/dL Ur Specific [place] (1.001-1.035) Urine Protein (Negative) 01/04/18 01/04/18 01/04/18 Range/Units 12:55 15:15 20:39 WBC (3.8-10.6) k/uL RBC (4.30-5.90) m/uL Hgb (13.0-17.5) gm/dL Hct (39.0-53.0) % Neutrophils # (1.3-7.7) k/uL Lymphocytes # (1.0-4.8) k/uL Monocytes # (0-1.0) k/uL Sodium (137-145) mmol/L Chloride (98-107) mmol/L Carbon Dioxide (22-30) mmol/L BUN (9-20) mg/dL Glucose (74-99) mg/dL POC Glucose (mg/dL) 168 H (75-99) mg/dL Plasma Lactic Acid Giovanni 2.1 H* (0.7-2.0) mmol/L Calcium (8.4-10.2) mg/dL Total Protein (6.3-8.2) g/dL Albumin (3.5-5.0) g/dL Ur Specific [place] 1.043 H (1.001-1.035) Urine Protein Trace H (Negative) 01/04/18 01/05/18 01/05/18 Range/Units 21:18 05:57 06:12 WBC 21.5 H (3.8-10.6) k/uL RBC 3.74 L (4.30-5.90) m/uL Hgb 10.3 L (13.0-17.5) gm/dL Hct 33.3 L (39.0-53.0) % Neutrophils # 20.1 H (1.3-7.7) k/uL Lymphocytes # 0.7 L (1.0-4.8) k/uL Monocytes # (0-1.0) k/uL Sodium (137-145) mmol/L Chloride (98-107) mmol/L Carbon Dioxide (22-30) mmol/L BUN (9-20) mg/dL Glucose (74-99) mg/dL POC Glucose (mg/dL) 132 H (75-99) mg/dL Plasma Lactic Acid Giovanni 2.9 H* (0.7-2.0) mmol/L Calcium (8.4-10.2) mg/dL Total Protein (6.3-8.2) g/dL Albumin (3.5-5.0) g/dL Ur Specific [place] (1.001-1.035) Urine Protein (Negative) 01/05/18 Range/Units 06:12 WBC (3.8-10.6) k/uL RBC (4.30-5.90) m/uL Hgb (13.0-17.5) gm/dL Hct (39.0-53.0) % Neutrophils # (1.3-7.7) k/uL Lymphocytes # (1.0-4.8) k/uL Monocytes # (0-1.0) k/uL Sodium 134 L (137-145) mmol/L Chloride (98-107) mmol/L Carbon Dioxide 31 H (22-30) mmol/L BUN 31 H (9-20) mg/dL Glucose 119 H (74-99) mg/dL POC Glucose (mg/dL) (75-99) mg/dL Plasma Lactic Acid Giovanni (0.7-2.0) mmol/L Calcium 7.8 L (8.4-10.2) mg/dL Total Protein (6.3-8.2) g/dL Albumin (3.5-5.0) g/dL Ur Specific [place] (1.001-1.035) Urine Protein (Negative) Microbiology - Last 24 Hours (Table) 01/04/18 10:49 Blood Culture - Preliminary Blood 01/04/18 12:55 Urine Culture - Preliminary Urine,Voided Assessment and Plan Plan: 1 acute colitis with secondary acute diarrhea and leukocytosis. Rule out bacterial colitis including the possibility of C. diff colitis. 2 acute diarrhea, improved 3 acute leukocytosis 4 acute lactic acidosis, improved 5 severe COPD with chronic hypoxic respiratory failure and the patient has been on 5 L of oxygen by nasal cannula, with a previous FEV1 being at 45% of predicted 6 recurrent pulmonary infections with pseudomonas aeruginosa maintained on inhaled tobramycin outpatient basis 7 previous history of MRSA lung infection 8 prostate cancer with a previous radiation therapy 9 hyperlipidemia 10 chronic anxiety/depression 11 sinus tachycardia secondary to above Plan: Continue current antibiotic coverage, continue IV Solu-Medrol and nebulized bronchodilators. He is diarrhea is subsiding, Actiq acid is not within normal limits, patient remains hemodynamically stable, no fever no chills, no abdominal pain, no nausea or vomiting, patient is tolerating a diet. No lightheadedness or dizziness. Continue to follow I performed a history & physical examination of the patient and discussed their management with my nurse practitioner, Loulou Cross. I reviewed the nurse practitioner's note and agree with the documented findings and plan of care. Lung sounds are positive for diffuse wheezes throughout the lung pichardo. The findings and the impression was discussed with the patient. I attest to the documentation by the nurse practitioner. Time with Patient: Less than 30
[2018-01-05] MEDS ORDERED: VANCOMYCIN 1,500 MG in SODIUM CHLORIDE 0.9% 250 ML IVPB SCH (12:00)
[2018-01-05 12:05] LABS: Glucose,Whole Blood 128 mg/dL (75-99)
[2018-01-05] MEDS ORDERED: LEVOFLOXACIN 750MG-D5W PMX 750 MG in DEXTROSE/WATER 1 150ML.BAG IVPB SCH (13:00)
[2018-01-05 17:01] LABS: Glucose,Whole Blood 125 mg/dL (75-99)
[2018-01-05] MEDS ORDERED: MORPHINE SULFATE 2 MG/ML SYRINGE IVP ONE (18:15)
[2018-01-05] MEDS: ASPIRIN 81 MG PO SCH (20:20)
[2018-01-05] MEDS: ALPRAZolam 1 MG TAB PO PRN (20:20)
[2018-01-05] MEDS: MELATONIN 3 MG TABLET PO SCH (20:20)
[2018-01-05] MEDS: ATORVASTATIN 10 MG TAB PO SCH (20:20)
[2018-01-05] MEDS: CITALOPRAM HYDROBROMIDE 20 MG TAB PO SCH (20:23)
[2018-01-05 20:51] LABS: Glucose,Whole Blood 170 mg/dL (75-99)
--- NOTE | 2018-01-06 01:04 | P.PN ---
Subjective Progress Note Date: 01/05/18 Principal diagnosis: Abdominal pain and diarrhea Acute C. diff colitis Coagulase-negative staph bacteremia Patient is a 82-year-old male with a known history of COPD, hyperlipidemia and history of Pseudomonas pneumonia diagnosed some time in April 2017 and is currently maintained on inhaled tobramycin every other month as per ID recommendations came to ER with complaints of abdominal pain and diarrhea. Patient did have diarrhea for the past 2 days and he did take Imodium at home. Patient does have nausea. No episodes of vomiting. 3-4 loose stools yesterday. Patient denied abdominal pain last night which has been getting worse and made him come to ER. Denied any hematemesis or melena. Denied any gross blood in the stool. Patient does have fever with T-max 100.9 on admission. Patient was tachycardic on admission. Patient was also having difficulty breathing while in the ER. Does have cough with whitish to light yellow sputum production. No change in color recently. Patient did see his doctor 2 days ago and was started on theophylline and steroids. Patient does have COPD oxygen dependent file it with another cannula. CT of the abdomen pelvis showed in the ER showed gross thickening of the colon including sigmoid colon and descending colon .. Consistent with infectious rather than intermittently colitis. Emphysematous changes as well as pulmonary fibrosis. Cholelithiasis and evidence of old granulomatous disease. Chest x-ray showed improved aeration and pulmonary fibrosis. EKG showed sinus tachycardia WBC 26.3 Lactic acid 3.7 Patient was started on antibiotics in the form of Levaquin and Flagyl. C. diff toxin was sent. 01/05/2018 Patient is still having abdominal pain but much improved. Patient did have small bowel movement and C. diff toxin was sent is came out positive. Otherwise blood cultures showed coagulase-negative staph aureus. Vancomycin has been discontinued. Discontinue Levaquin as well. Patient will be continued on Flagyl 3 times a day. Patient is being continued on breathing treatments and IV steroids. Lactic acidosis resolved. Patient will be continued on gentle hydration. Objective - Vital Signs Vital signs: Vital Signs Temp 98.1 F 01/05/18 15:35 Pulse 108 H 01/05/18 15:35 Resp 17 01/05/18 15:35 BP 131/70 01/05/18 15:35 Pulse Ox 94 L 01/05/18 15:35 Intake & Output 01/04/18 01/05/18 01/05/18 18:59 06:59 18:59 Intake Total 260 1750 1540 Output Total 800 Balance 082 026 2863 Weight 72.575 kg 74.2 kg Intake: IV 1020 Invasive Line 2 20 Levofloxacin 750Mg-D5w 150 Pmx 750 mg In Dextrose/ Water 1 150ml.bag @ 100 mls/hr IVPB Q24H JANETTE Rx#: [id number] Sodium Chloride 0.9% 1, 500 000 ml @ 100 mls/hr IV . Q10H JANETTE Rx#:[id number] Vancomycin 1,500 mg In 250 Sodium Chloride 0.9% 250 ml @ 125 mls/hr IVPB Q12HR JANETTE Rx#:[id number] metroNIDAZOLE-NS PMX 500 100 mg In Saline 1 100ml.bag @ 100 mls/hr IVPB ONCE ONE Rx#:[id number] Intake, IV Titration 1200 Amount Sodium Chloride 0.9% 1, 1100 000 ml @ 100 mls/hr IV . Q10H JANETTE Rx#:[id number] metroNIDAZOLE-NS PMX 500 100 mg In Saline 1 100ml.bag @ 100 mls/hr IVPB ONCE ONE Rx#:[id number] Oral 260 550 520 Output: Urine 800 Other: Voiding Method Urinal Urinal Urinal # Voids 1 - Exam PHYSICAL EXAMINATION: Patient is lying in the bed comfortably, no acute distress, awake alert and oriented.. HEENT: Normocephalic. Neck is supple. Pupils reactive. Nostrils clear. Oral cavity is moist. Ears reveal no drainage. Neck reveals no JVD, carotid bruits, or thyromegaly. CHEST EXAMINATION: Trachea is central. Symmetrical expansion. Bilateral expiratory wheeze and minimal rhonchi.. CARDIAC: Normal S1, S2 with no gallops. No murmurs ABDOMEN: Soft. Mild left lower quadrant tenderness. Bowel sounds normal. No organomegaly. No abdominal bruits. Extremities: reveal no edema. No clubbing or cyanosis Neurologically awake, alert, oriented x3 with well-coordinated movements. No focal deficits noted Skin: No rash or skin lesions. Psychiatric: Coperative. Nonsuicidal Musculoskeletal: No joint swelling or deformity. Normal range of motion. - Labs CBC & Chem 7: 01/05/18 06:12 01/05/18 06:12 Labs: Abnormal Lab Results - Last 24 Hours (Table) 01/04/18 01/04/18 01/05/18 Range/Units 20:39 21:18 05:57 WBC (3.8-10.6) k/uL RBC (4.30-5.90) m/uL Hgb (13.0-17.5) gm/dL Hct (39.0-53.0) % Neutrophils # (1.3-7.7) k/uL Lymphocytes # (1.0-4.8) k/uL Sodium (137-145) mmol/L Carbon Dioxide (22-30) mmol/L BUN (9-20) mg/dL Glucose (74-99) mg/dL POC Glucose (mg/dL) 168 H 132 H (75-99) mg/dL Plasma Lactic Acid Giovanni 2.9 H* (0.7-2.0) mmol/L Calcium (8.4-10.2) mg/dL C. difficile (EIA) Intrp (Negative) 01/05/18 01/05/18 01/05/18 Range/Units 06:12 06:12 11:20 WBC 21.5 H (3.8-10.6) k/uL RBC 3.74 L (4.30-5.90) m/uL Hgb 10.3 L (13.0-17.5) gm/dL Hct 33.3 L (39.0-53.0) % Neutrophils # 20.1 H (1.3-7.7) k/uL Lymphocytes # 0.7 L (1.0-4.8) k/uL Sodium 134 L (137-145) mmol/L Carbon Dioxide 31 H (22-30) mmol/L BUN 31 H (9-20) mg/dL Glucose 119 H (74-99) mg/dL POC Glucose (mg/dL) (75-99) mg/dL Plasma Lactic Acid Giovanni (0.7-2.0) mmol/L Calcium 7.8 L (8.4-10.2) mg/dL C. difficile (EIA) Intrp Positive A (Negative) 01/05/18 Range/Units 12:00 WBC (3.8-10.6) k/uL RBC (4.30-5.90) m/uL Hgb (13.0-17.5) gm/dL Hct (39.0-53.0) % Neutrophils # (1.3-7.7) k/uL Lymphocytes # (1.0-4.8) k/uL Sodium (137-145) mmol/L Carbon Dioxide (22-30) mmol/L BUN (9-20) mg/dL Glucose (74-99) mg/dL POC Glucose (mg/dL) 128 H (75-99) mg/dL Plasma Lactic Acid Giovanni (0.7-2.0) mmol/L Calcium (8.4-10.2) mg/dL C. difficile (EIA) Intrp (Negative) Microbiology - Last 24 Hours (Table) 01/04/18 10:50 Blood Culture - Final Blood 01/04/18 10:49 Blood Culture - Preliminary Blood 01/04/18 12:55 Urine Culture - Preliminary Urine,Voided Assessment and Plan Assessment: Sepsis secondary to C. diff colitis. Diarrhea improving. Lactic acidosis secondary to infection and volume depletion. Improved Severe COPD with exacerbation and chronic hypoxic respiratory failure on file later nausea cannula oxygen. Recent history of Pseudomonas pneumonia and failed antibiotic therapy. Currently on inhaled tobramycin every other month as per ID Pulmonary fibrosis History of prostate cancer with radiation in 2007 and seed implants History of MRSA History of skin cancer remote from right forearm Hyperlipidemia Anxiety/depression Previous history of smoking DVT prophylaxis Plan: Patient will be continued on IV hydration. Continue with antibiotics in the form of Flagyl. C. diff toxin is positive. Blood cultures showed coagulase- negative staph aureus.. Follow blood cultures and continue the home medications breathing treatments and IV steroids. Pulmonary is on board. Further recommendations based on the clinical course Time with Patient: Greater than 30
[2018-01-06 05:50] LABS: Glucose,Whole Blood 127 mg/dL (75-99)
[2018-01-06] MEDS: INSULIN ASPART 100 UNIT/ML 1 ML 10 ML VIAL SQ SCH ×4 (06:32→22:13)
[2018-01-06] MEDS: SODIUM CHLORIDE 0.9% 1,000 ML IV SCH ×2 (06:33→08:24)
[2018-01-06] MEDS: methylPREDNISolone SOD SUCCI 125 MG/2 ML VIAL IV SCH ×4 (06:33→22:25)
[2018-01-06 06:57] LABS: Basophils % (A) 0 %; Eosinophils # (A) 0.1 k/uL (0-0.7); Eosinophils % (A) 0 %; HCT 34.5 % (39.0-53.0); HGB 10.8 gm/dL (13.0-17.5); Hypochromasia Slight; Lymphocytes # (A) 0.5 k/uL (1.0-4.8); Lymphocytes % (A) 2 %; MCH 28.3 pg (25.0-35.0); MCHC 31.5 g/dL (31.0-37.0); Mean Platelet Volume 8.1; Monocytes # (A) 0.6 k/uL (0-1.0); Monocytes % (A) 3 %; Neutrophils # (A) 20.9 k/uL (1.3-7.7); Neutrophils % (A) 94 %; Platelet Count 277 k/uL (150-450); RBC 3.83 m/uL (4.30-5.90); RDW 13.9 % (11.5-15.5); WBC 22.1 k/uL (3.8-10.6)
[2018-01-06] MEDS: IPRATROPIUM-ALBUTEROL 3 ML NEB INHALATION SCH ×5 (07:06→23:09)
[2018-01-06 07:14] LABS: Calcium 7.9 mg/dL (8.4-10.2); Potassium 4.6 mmol/L (3.5-5.1)
[2018-01-06] MEDS: MULTIVITAMINS, THERA 1 EACH TAB PO SCH (08:23)
[2018-01-06] MEDS: busPIRone HCl 5 MG TAB PO SCH ×2 (08:23→20:43)
[2018-01-06] MEDS: metroNIDAZOLE-NS PMX 500 MG in SALINE 1 100ML.BAG IVPB SCH (10:04)
[2018-01-06 11:36] LABS: Glucose,Whole Blood 138 mg/dL (75-99)
--- NOTE | 2018-01-06 12:45 | P.PN ---
Subjective Progress Note Date: 01/06/18 Principal diagnosis: Acute colitis, diarrhea, leukocytosis, rule out bacterial colitis and C. diff colitis. Acute exacerbation of COPD 82-year-old male patient with advanced COPD and previous history of recurrent COPD exacerbation recurrent infection with Pseudomonas maintained on inhaled tobramycin on outpatient basis. The patient is quite debilitated from his COPD and his oxygen dependent at 5 L of oxygen by nasal cannula at baseline. He came to the emergency department because of worsening difficulty breathing over the past 1 week. However he also complained of 4-5 bouts of liquidy diarrhea and diffuse abdominal discomfort and pain with some nausea without emesis. He apparently had 3-4 bouts of diarrhea yesterday. No recent antibiotic intake. No documented fever. CAT scan of the abdomen was done in the ED, and it showed gross thickening of the colon including the sigmoid colon and ascending colon and descending colon. There is considered to be consistent with infectious rather than inflammatory colitis. The patient was started on a combination of Levaquin and Flagyl. Stool for C. diff will be sent. He came in originally with some tachycardia and he responded to IV fluids and the patient's heart rate is down although he remains to be in some degree of sinus tachycardia. No dizziness. He has some leukocytosis with a white cell count of 26.3. Initial lactic acid level was at 3.7. Rest of the blood work including the liver function tests are all within normal limits. Amylase and lipase are within normal limits. On 01/05/2018 patient seen in follow-up on selective care unit. His diarrhea has slowed down, and we have not been able to collect a stool sample for C. diff. No abdominal pain. No fever, vital signs remain stable. He remains bronchospastic on today's exam, occasional cough, with production of clear phlegm. He remains on IV antibiotics, Levaquin, Flagyl and vancomycin, IV steroids, and nebulized bronchodilators. Right the on 5 L per nasal cannula, his pulse ox of 95%. Urine and blood cultures are negative thus far. Actiq acid has come down to 1.4, he is hemodynamically stable. On 01/06/2018 patient seen in follow-up on selective care unit. His diarrhea has slowed down, he states it is formed stool now, he was found to be positive for C. diff. Hiss Levaquin and Vancomycin has been discontinued, patient remains on Flagyl. Afebrile, hemodynamically stable, on sounds are diminished, with end expiratory wheezing, overall less bronchospastic on today's exam, although remains short of breath with any exertion. Occasional cough, production of sputum, we will collect sputum for culture. Today's labs have been reviewed, WBCs 22.1, hemoglobin is 10.8, sodium is up to 135, the rest of electrolytes were within normal limits, BUN is 34 creatinine 0.92 Objective - Vital Signs Vital signs: Vital Signs Temp 98.8 F 01/05/18 23:00 Pulse 108 H 01/06/18 12:16 Resp 20 01/06/18 12:16 BP 143/80 01/06/18 12:16 Pulse Ox 93 L 01/06/18 12:16 Intake & Output 01/05/18 01/06/18 01/06/18 18:59 06:59 18:59 Intake Total 1600 1650 260 Output Total 175 Balance 1425 1650 260 Intake: IV 1020 750 Invasive Line 2 20 Levofloxacin 750Mg-D5w 150 Pmx 750 mg In Dextrose/ Water 1 150ml.bag @ 100 mls/hr IVPB Q24H [facility] Rx#: [id number] Sodium Chloride 0.9% 1, 500 750 000 ml @ 50 mls/hr IV . Q20H [facility] Rx#:[id number] Vancomycin 1,500 mg In 250 Sodium Chloride 0.9% 250 ml @ 125 mls/hr IVPB Q12HR [facility] Rx#:[id number] metroNIDAZOLE-NS PMX 500 100 mg In Saline 1 100ml.bag @ 100 mls/hr IVPB ONCE ONE Rx#:[id number] Intake, IV Titration 100 Amount metroNIDAZOLE-NS PMX 500 100 mg In Saline 1 100ml.bag @ 100 mls/hr IVPB Q8HR [facility] Rx#:[id number] Oral 580 800 260 Output: Urine 175 Other: Voiding Method Urinal Urinal Urinal # Voids 1 3 - Exam GENERAL EXAM: Alert, fairly comfortable in no acute respiratory distress. EYES: Normal reaction of pupils, equal size. NOSE: Clear with pink turbinates. THROAT: No erythema or exudates. NECK: No masses, no JVD. CHEST: No chest wall deformity. LUNGS: Equal air entry coarse crackles in the bilateral posterior bases. Diminished bilaterally with scattered expiratory wheezes throughout the lung pichardo bilaterally CVS: S1 and S2 normal with no audible murmur, regular rhythm. ABDOMEN: No hepatosplenomegaly, normal bowel sounds, no guarding or rigidity. SPINE: No scoliosis or deformity SKIN: No rashes CENTRAL NERVOUS SYSTEM: No focal deficits, tone is normal in all 4 extremities. EXTREMITIES: There is no peripheral edema. No clubbing, no cyanosis. Peripheral pulses are intact. - Labs CBC & Chem 7: 01/06/18 06:10 01/06/18 06:10 Labs: Abnormal Lab Results - Last 24 Hours (Table) 01/05/18 01/05/18 01/05/18 Range/Units 11:20 16:58 18:40 WBC (3.8-10.6) k/uL RBC (4.30-5.90) m/uL Hgb (13.0-17.5) gm/dL Hct (39.0-53.0) % Neutrophils # (1.3-7.7) k/uL Lymphocytes # (1.0-4.8) k/uL Sodium (137-145) mmol/L BUN (9-20) mg/dL Glucose (74-99) mg/dL POC Glucose (mg/dL) 125 H (75-99) mg/dL Calcium (8.4-10.2) mg/dL Stool Lactoferrin POSITIVE H (NEGATIVE) C. difficile (EIA) Intrp Positive A (Negative) 01/05/18 01/06/18 01/06/18 Range/Units 20:50 05:49 06:10 WBC 22.1 H (3.8-10.6) k/uL RBC 3.83 L (4.30-5.90) m/uL Hgb 10.8 L (13.0-17.5) gm/dL Hct 34.5 L (39.0-53.0) % Neutrophils # 20.9 H (1.3-7.7) k/uL Lymphocytes # 0.5 L (1.0-4.8) k/uL Sodium (137-145) mmol/L BUN (9-20) mg/dL Glucose (74-99) mg/dL POC Glucose (mg/dL) 170 H 127 H (75-99) mg/dL Calcium (8.4-10.2) mg/dL Stool Lactoferrin (NEGATIVE) C. difficile (EIA) Intrp (Negative) 01/06/18 01/06/18 Range/Units 06:10 11:34 WBC (3.8-10.6) k/uL RBC (4.30-5.90) m/uL Hgb (13.0-17.5) gm/dL Hct (39.0-53.0) % Neutrophils # (1.3-7.7) k/uL Lymphocytes # (1.0-4.8) k/uL Sodium 135 L (137-145) mmol/L BUN 34 H (9-20) mg/dL Glucose 121 H (74-99) mg/dL POC Glucose (mg/dL) 138 H (75-99) mg/dL Calcium 7.9 L (8.4-10.2) mg/dL Stool Lactoferrin (NEGATIVE) C. difficile (EIA) Intrp (Negative) Microbiology - Last 24 Hours (Table) 01/05/18 18:40 Stool Culture - Preliminary Stool 01/04/18 12:55 Urine Culture - Final Urine,Voided 01/04/18 10:49 Blood Culture Gram Stain - Preliminary Blood Blood Culture - Preliminary Coagulase Negative Staph 01/04/18 10:50 Blood Culture - Final Blood Assessment and Plan Plan: 1 acute colitis with secondary acute diarrhea and leukocytosis. Rule out bacterial colitis including the possibility of C. diff colitis. 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 diff, his diarrhea is subsiding, stools more formed, and less frequent. Continue IV 0.9 normal saline at a rate of 50 ML per hour. Continue to follow I performed a history & physical examination of the patient and discussed their management with my nurse practitioner, Loulou Cross. I reviewed the nurse practitioner's note and agree with the documented findings and plan of care. Lung sounds are positive for diffuse wheezes throughout the lung pichardo. The findings and the impression was discussed with the patient. I attest to the documentation by the nurse practitioner. Time with Patient: Less than 30
[2018-01-06] MEDS: VANCOMYCIN ORAL SOLUTION 250 MG/5 ML BOTTLE PO SCH ×2 (15:56→22:23)
[2018-01-06] MEDS: CHERRY FLAVOR 60 ML BOTTLE PO SCH ×2 (15:58→22:23)
[2018-01-06 16:25] LABS: Glucose,Whole Blood 146 mg/dL (75-99)
--- NOTE | 2018-01-06 17:59 | P.PN ---
Subjective Progress Note Date: 01/06/18 Progress note being dictated for Dr. Yu Interval history:Patient is a 82-year-old male with a known history of COPD, hyperlipidemia and history of Pseudomonas pneumonia diagnosed some time in April 2017 and is currently maintained on inhaled tobramycin every other month as per ID recommendations came to ER with complaints of abdominal pain and diarrhea. Patient did have diarrhea for the past 2 days and he did take Imodium at home. Patient does have nausea. No episodes of vomiting. 3-4 loose stools yesterday. Patient denied abdominal pain last night which has been getting worse and made him come to ER. Denied any hematemesis or melena. Denied any gross blood in the stool. Patient does have fever with T-max 100.9 on admission. Patient was tachycardic on admission. Patient was also having difficulty breathing while in the ER. Does have cough with whitish to light yellow sputum production. No change in color recently. Patient did see his doctor 2 days ago and was started on theophylline and steroids. Patient does have COPD oxygen dependent file it with another cannula. CT of the abdomen pelvis showed in the ER showed gross thickening of the colon including sigmoid colon and descending colon .. Consistent with infectious rather than intermittently colitis. Emphysematous changes as well as pulmonary fibrosis. Cholelithiasis and evidence of old granulomatous disease. Chest x-ray showed improved aeration and pulmonary fibrosis. EKG showed sinus tachycardia WBC 26.3 Lactic acid 3.7 Patient was started on antibiotics in the form of Levaquin and Flagyl. C. diff toxin was sent. 01/05/2018 Patient is still having abdominal pain but much improved. Patient did have small bowel movement and C. diff toxin was sent is came out positive. Otherwise blood cultures showed coagulase-negative staph aureus. Vancomycin has been discontinued. Discontinue Levaquin as well. Patient will be continued on Flagyl 3 times a day. Patient is being continued on breathing treatments and IV steroids. Lactic acidosis resolved. Patient will be continued on gentle hydration. 09/05/2017 diarrhea improving. Breathing better, occasional productive cough - sputum culture pending .Exertional shortness of breath. Urine culture pending Maintained on gentle IV fluid hydration, Flagyl. Afebrile, WBC 22.1. Creatinine 0.92. Objective - Vital Signs Vital signs: Vital Signs Temp 97.9 F 01/06/18 15:00 Pulse 100 01/06/18 16:09 Resp 20 01/06/18 15:12 BP 139/73 01/06/18 15:00 Pulse Ox 92 L 01/06/18 15:00 Intake & Output 01/05/18 01/06/18 01/06/18 18:59 06:59 18:59 Intake Total 1600 1650 740 Output Total 175 500 Balance 1425 1650 240 Intake: IV 1020 750 Invasive Line 2 20 Levofloxacin 750Mg-D5w 150 Pmx 750 mg In Dextrose/ Water 1 150ml.bag @ 100 mls/hr IVPB Q24H [facility] Rx#: [id number] Sodium Chloride 0.9% 1, 500 750 000 ml @ 50 mls/hr IV . Q20H [facility] Rx#:[id number] Vancomycin 1,500 mg In 250 Sodium Chloride 0.9% 250 ml @ 125 mls/hr IVPB Q12HR [facility] Rx#:[id number] metroNIDAZOLE-NS PMX 500 100 mg In Saline 1 100ml.bag @ 100 mls/hr IVPB ONCE ONE Rx#:[id number] Intake, IV Titration 100 Amount metroNIDAZOLE-NS PMX 500 100 mg In Saline 1 100ml.bag @ 100 mls/hr IVPB Q8HR [facility] Rx#:[id number] Oral 580 800 740 Output: Urine 175 500 Other: Voiding Method Urinal Urinal Urinal # Voids 1 3 # Bowel Movements 1 - Exam PHYSICAL EXAMINATION: Patient is sitting up in the bed comfortably, no acute distress, awake alert and oriented.. HEENT: Normocephalic. Neck is supple. Pupils reactive. Nostrils clear. Oral mucosa moist Neck reveals no JVD, carotid bruits, or thyromegaly. CHEST EXAMINATION: Trachea is central. Symmetrical expansion. Bilateral expiratory wheeze, crackles and minimal rhonchi. CARDIAC: Normal S1, S2 with no gallops. No murmurs ABDOMEN: Soft. Distended. Mild left lower quadrant tenderness. Bowel sounds normal. No organomegaly. No abdominal bruits. Extremities: reveal no edema. No clubbing or cyanosis Neurologically awake, alert, oriented x3 with well-coordinated movements. No focal deficits noted Skin: No rash or skin lesions. Musculoskeletal: No joint swelling or deformity. Normal range of motion. - Labs CBC & Chem 7: 01/06/18 06:10 01/06/18 06:10 Labs: Abnormal Lab Results - Last 24 Hours (Table) 01/05/18 01/05/18 01/06/18 Range/Units 18:40 20:50 05:49 WBC (3.8-10.6) k/uL RBC (4.30-5.90) m/uL Hgb (13.0-17.5) gm/dL Hct (39.0-53.0) % Neutrophils # (1.3-7.7) k/uL Lymphocytes # (1.0-4.8) k/uL Sodium (137-145) mmol/L BUN (9-20) mg/dL Glucose (74-99) mg/dL POC Glucose (mg/dL) 170 H 127 H (75-99) mg/dL Calcium (8.4-10.2) mg/dL Stool Lactoferrin POSITIVE H (NEGATIVE) 01/06/18 01/06/18 01/06/18 Range/Units 06:10 06:10 11:34 WBC 22.1 H (3.8-10.6) k/uL RBC 3.83 L (4.30-5.90) m/uL Hgb 10.8 L (13.0-17.5) gm/dL Hct 34.5 L (39.0-53.0) % Neutrophils # 20.9 H (1.3-7.7) k/uL Lymphocytes # 0.5 L (1.0-4.8) k/uL Sodium 135 L (137-145) mmol/L BUN 34 H (9-20) mg/dL Glucose 121 H (74-99) mg/dL POC Glucose (mg/dL) 138 H (75-99) mg/dL Calcium 7.9 L (8.4-10.2) mg/dL Stool Lactoferrin (NEGATIVE) 01/06/18 Range/Units 16:23 WBC (3.8-10.6) k/uL RBC (4.30-5.90) m/uL Hgb (13.0-17.5) gm/dL Hct (39.0-53.0) % Neutrophils # (1.3-7.7) k/uL Lymphocytes # (1.0-4.8) k/uL Sodium (137-145) mmol/L BUN (9-20) mg/dL Glucose (74-99) mg/dL POC Glucose (mg/dL) 146 H (75-99) mg/dL Calcium (8.4-10.2) mg/dL Stool Lactoferrin (NEGATIVE) Microbiology - Last 24 Hours (Table) 01/05/18 18:40 Stool Culture - Preliminary Stool 01/04/18 12:55 Urine Culture - Final Urine,Voided 01/04/18 10:49 Blood Culture Gram Stain - Preliminary Blood Blood Culture - Preliminary Coagulase Negative Staph 01/04/18 10:50 Blood Culture - Final Blood Assessment and Plan Assessment: Sepsis secondary to C. diff colitis. Diarrhea improving. Lactic acidosis secondary to infection and volume depletion. Improved Severe COPD with exacerbation and chronic hypoxic respiratory failure on file later nausea cannula oxygen. Recent history of Pseudomonas pneumonia and failed antibiotic therapy. Currently on inhaled tobramycin every other month as per ID Pulmonary fibrosis History of prostate cancer with radiation in 2007 and seed implants History of MRSA History of skin cancer remote from right forearm Hyperlipidemia Anxiety/depression Previous history of smoking DVT prophylaxis Plan: Continue on current medication regime ,monitoring and symptomatic treatment. Maintain gentle IV fluid hydration, Flagyl. Continue nebulized bronchodilators, systemic steroids. Increase ambulation, as tolerated. The impression and plan of care has been dictated as directed. : I performed a history and examination of this patient, discussed the same with the dictator. I agree with the dictator's note ,documented as a scribe. Any additional findings or plans will be noted.
[2018-01-06] MEDS: FORMOTEROL FUMARATE 20 MCG/2 ML NEBU INHALATION SCH (20:23)
[2018-01-06] MEDS: BUDESONIDE 1 MG/2 ML NEBU INHALATION SCH (20:23)
[2018-01-06] MEDS: MELATONIN 3 MG TABLET PO SCH (20:42)
[2018-01-06] MEDS: ATORVASTATIN 10 MG TAB PO SCH (20:43)
[2018-01-06] MEDS: ASPIRIN 81 MG PO SCH (20:43)
[2018-01-06] MEDS: CITALOPRAM HYDROBROMIDE 20 MG TAB PO SCH (20:43)
[2018-01-06 21:53] LABS: Glucose,Whole Blood 166 mg/dL (75-99)
[2018-01-06] MEDS: ALPRAZolam 1 MG TAB PO PRN (22:13)
--- NOTE | 2018-01-06 23:48 | P.CONS ---
History of Present Illness - Reason for Consult Consult date: 01/06/18 - Chief Complaint Abdominal pain with shortness of breath - History of Present Illness 82-year-old male is well-known to the infectious disease service from his prior hospitalizations and office follow-up through the summer. The patient has a known history of advanced oxygen and occasionally steroid- dependent extremities be COPD, he was having frequent exacerbations and was with a [id number] pseudomonas aeruginosa. 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 He is becoming more short of breath he was having increasing weakness was having off and about 4 stools a day. Occasionally were watery but most of the time it was formed. He does relate to some crampy abdominal pain especially the left lower quadrant. He is not having nausea or emesis. He is having no hematemesis or melena or hematochezia. He does have fatigue and malaise. Review of Systems 82-year-old male comfortable, relates he is less short of breath HEENT:Denies headache or acute visual change. Denies sinus or mouth discomforts. Denies neck stiffness or pain. Denies significant oral cavity pain. Denies difficulty on swallowing. Lungs: Chronic shortness of breath has now stabilized is minimal cough no hemoptysis Cardiovascular: Denied chest pains or pressures no orthopnea or syncope. Does have his baseline shortness of breath with dyspnea with exertion. Gastrointestinal: No nausea or emesis at this time. Does have multiple soft stools a day, no hematoma spell or hematochezia. Musculoskeletal: denies significant myalgias or arthralgias. No new joint swelling. Denies new back pain. Skin: Denies new rash or lesions. No new ulcers or wounds are related.. Neuro: Denies headache or visual change. Denies any new onset weakness or difficulty with ambulation. Denies falls or seizures. Psychiatric:Denies anxiety or depression. Endocrine: Denies significant fatigue, denies significant weight loss or weight gain. Past Medical History Past Medical History: Cancer, COPD, Hyperlipidemia, Pneumonia, Prostate Disorder Additional Past Medical History / Comment(s): Pt was admitted on 02/23/17 with bilateral pneumonia. Other hx: COPD, pneumonia with sepsis, 2007 prostate cancer treated by radiation therapy, skin cancer with removal, normocytic anemia , cervical DDD. 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 Past Anesthesia/Blood Transfusion Reactions: No Reported Reaction Past Psychological History: Anxiety, Depression Additional Psychological History / Comment(s): and lives with family home with his . Retired. No recent travel. no experience. No animal exposures Smoking Status: Former smoker Past Alcohol Use History: None Reported Past Drug Use History: None Reported - Past Family History Mother Family Medical History: No Reported History Father Family Medical History: Cancer Additional Family Medical History / Comment(s): spine CA which spread to bone CA Medications and Allergies Home Medications and Allergies Comment(s): Current Medications Albuterol/Ipratropium (Duoneb 0.5 Mg-3 Mg/3 Ml Soln) 3 ml INHALATION RT-Q4H PRN PRN Reason: Shortness Of Breath Or Wheezing Albuterol/Ipratropium (Duoneb 0.5 Mg-3 Mg/3 Ml Soln) 3 ml INHALATION RT-Q4H [facility] Last Admin: 01/06/18 23:09 Dose: Not Given Alprazolam (Xanax) 1 mg PO DAILY PRN PRN Reason: Anxiety Last Admin: 01/06/18 22:13 Dose: 1 mg Aspirin (Aspirin) 81 mg PO HS [facility] Last Admin: 01/06/18 20:43 Dose: 81 mg Atorvastatin Calcium (Lipitor) 10 mg PO HS [facility] Last Admin: 01/06/18 20:43 Dose: 10 mg Budesonide (Pulmicort) 1 mg INHALATION RT-BID [facility] Last Admin: 01/06/18 20:23 Dose: 1 mg Buspirone HCl (Buspar) 5 mg PO BID [facility] Last Admin: 01/06/18 20:43 Dose: 5 mg Mike Syrup (Mike Syrup) 5 ml PO Q6HR [facility] Last Admin: 01/06/18 22:23 Dose: 5 ml Citalopram Hydrobromide (Celexa) 40 mg PO [facility] Last Admin: 01/06/18 20:43 Dose: 40 mg Formoterol Fumarate (Perforomist) 20 mcg INHALATION RT-BID [facility] Last Admin: 01/06/18 20:23 Dose: 20 mcg Sodium Chloride (Saline 0.9%) 1,000 mls @ 50 mls/hr IV .Q20H [facility] Last Admin: 01/06/18 08:24 Dose: 50 mls/hr Insulin Aspart (Novolog) 0 unit SQ [facility]; Protocol Last Admin: 01/06/18 22:13 Dose: 3 unit Melatonin (Melatonin) 3 mg PO [facility] Last Admin: 01/06/18 20:42 Dose: Not Given Methylprednisolone Sodium Succinate (Solu-Medrol) 60 mg IV Q6HR [facility] Last Admin: 01/06/18 22:25 Dose: 60 mg Multivitamins (Theragran) 1 each PO 1200 [facility] Last Admin: 01/06/18 08:23 Dose: 1 each Vancomycin HCl (Vancomycin Oral Solution) 250 mg PO Q6HR [facility] Last Admin: 01/06/18 22:23 Dose: 250 mg Home Medications Medication Instructions Recorded Confirmed Type Aspirin 81 mg PO 06/02/14 01/04/18 History Fluticasone/Salmeterol [Advair 1 puff INHALATION RT-BID 06/02/14 01/04/18 History 500-50 Diskus] Tamsulosin [Flomax] 0.4 mg PO 06/02/14 01/04/18 History Simvastatin [Zocor] 10 mg PO 08/27/14 01/04/18 History guaiFENesin-DM 600/30MG [Mucinex 1 tab PO DAILY 02/13/16 01/04/18 History Dm] Calcium Carbonate [Calcium] 600 mg PO DAILY 02/24/17 01/04/18 History Melatonin 3 mg PO 02/24/17 01/04/18 History busPIRone HCl [Buspar] 5 mg PO BID 02/24/17 01/04/18 History Albuterol Nebulized [Ventolin 2.5 mg INHALATION RT-TID 04/01/17 01/04/18 History Nebulized] Citalopram Hydrobromide [CeleXA] 40 mg PO 04/24/17 01/04/18 History Furosemide [Lasix] 40 mg PO DAILY 04/24/17 01/04/18 History Multivit-Min/FA/Lycopen/Lutein 1 tab PO DAILY 04/24/17 01/04/18 History [Centrum Silver Tablet] Nystatin 100,000 Unit/ml Susp 4 ml PO QID 04/24/17 01/04/18 History [Mycostatin Oral Susp] ALPRAZolam [Xanax] 1 mg PO DAILY PRN 01/04/18 01/04/18 History Theophylline 12 Hour [Yevgeniy-Dur] 300 mg PO BID 01/04/18 01/04/18 History Tiotropium [place] [Spiriva] 1 cap INHALATION RT-DAILY 01/04/18 01/04/18 History diphenhydrAMINE [Benadryl] 25 mg PO HS PRN 01/04/18 01/04/18 History predniSONE See Taper PO DAILY 01/04/18 01/04/18 History Allergies Allergy/AdvReac Type Severity Reaction Status Date / Time No Known Allergies Allergy Verified 01/04/18 12:07 Physical Exam Vitals: Vital Signs Temp Pulse Pulse Pulse Resp BP Pulse Ox 01/06/18 20:46 104 H 01/06/18 20:38 107 H 01/06/18 20:24 107 H 95 01/06/18 16:09 100 01/06/18 16:00 96 01/06/18 15:12 101 H 20 01/06/18 15:00 97.9 F 104 H 20 139/73 92 L 01/06/18 12:16 108 H 20 143/80 93 L 01/06/18 11:18 104 H 01/06/18 11:10 100 01/06/18 08:29 116 H 26 H 01/06/18 07:55 104 H 01/06/18 07:43 96 01/06/18 03:51 95 17 116/70 93 L 01/05/18 23:20 102 H 17 01/05/18 23:00 98.8 F 102 H 17 108/60 95 Intake and Output 01/06/18 01/06/18 01/06/18 06:59 14:59 22:59 Intake Total 1250 740 Output Total 500 Balance 1250 240 Intake: IV 750 Sodium Chloride 0.9% 1, 750 000 ml @ 50 mls/hr IV . Q20H [facility] Rx#:[id number] Intake, IV Titration 100 Amount metroNIDAZOLE-NS PMX 500 100 mg In Saline 1 100ml.bag @ 100 mls/hr IVPB Q8HR [facility] Rx#:[id number] Oral 400 740 Output: Urine 500 Other: Voiding Method Urinal Urinal Urinal # Voids 3 # Bowel Movements 1 82-year-old male who is on oxygen at 5 L which is his baseline dose relates that he's feeling better since coming to hospital, short of breath and is having potentially some improvement of his stools. HEENT: Anicteric conjunctiva are pink and moist nasal mucosa grossly intact without significant lesions, there is no thrush. Neck: The neck is supple without significant lymphadenopathy or thyromegaly. Lungs: Symmetrical air entry is noted, rare expiratory wheezes are heard no blanca bronchial sounds dullness or egophony Heart: Regular rate and rhythm with an audible S1-S2, no S3 no S4. There is no significant murmur click or rub, PMI was nondisplaced. Abdomen: The abdomen is soft and nondistended, no palpable hepatosplenomegaly, no masses no guarding or rebound has minimal left lower quadrant tenderness Extremities: The upper extremities have excellent pulses they are symmetric, no significant petechiae or telangiectasia. No splinter hemorrhages were noted. The lower extremities are free from significant edema. The peripheral pulses were 2+ and symmetric. Neuro: Awake alert oriented to person place and time. There are no acute new gross focal sensory motor deficits. Results CBC & Chem 7: 01/06/18 06:10 01/06/18 06:10 Labs: Abnormal Lab Results - Last 24 Hours (Table) 01/05/18 01/06/18 01/06/18 Range/Units 18:40 05:49 06:10 WBC 22.1 H (3.8-10.6) k/uL RBC 3.83 L (4.30-5.90) m/uL Hgb 10.8 L (13.0-17.5) gm/dL Hct 34.5 L (39.0-53.0) % Neutrophils # 20.9 H (1.3-7.7) k/uL Lymphocytes # 0.5 L (1.0-4.8) k/uL Sodium (137-145) mmol/L BUN (9-20) mg/dL Glucose (74-99) mg/dL POC Glucose (mg/dL) 127 H (75-99) mg/dL Calcium (8.4-10.2) mg/dL Stool Lactoferrin POSITIVE H (NEGATIVE) 01/06/18 01/06/18 01/06/18 Range/Units 06:10 11:34 16:23 WBC (3.8-10.6) k/uL RBC (4.30-5.90) m/uL Hgb (13.0-17.5) gm/dL Hct (39.0-53.0) % Neutrophils # (1.3-7.7) k/uL Lymphocytes # (1.0-4.8) k/uL Sodium 135 L (137-145) mmol/L BUN 34 H (9-20) mg/dL Glucose 121 H (74-99) mg/dL POC Glucose (mg/dL) 138 H 146 H (75-99) mg/dL Calcium 7.9 L (8.4-10.2) mg/dL Stool Lactoferrin (NEGATIVE) 01/06/18 Range/Units 21:50 WBC (3.8-10.6) k/uL RBC (4.30-5.90) m/uL Hgb (13.0-17.5) gm/dL Hct (39.0-53.0) % Neutrophils # (1.3-7.7) k/uL Lymphocytes # (1.0-4.8) k/uL Sodium (137-145) mmol/L BUN (9-20) mg/dL Glucose (74-99) mg/dL POC Glucose (mg/dL) 166 H (75-99) mg/dL Calcium (8.4-10.2) mg/dL Stool Lactoferrin (NEGATIVE) Microbiology - Last 24 Hours (Table) 01/05/18 18:40 Stool Culture - Preliminary Stool 01/04/18 12:55 Urine Culture - Final Urine,Voided 01/04/18 10:49 Blood Culture Gram Stain - Preliminary Blood Blood Culture - Preliminary Coagulase Negative Staph Laboratory Results WBC 22.1 k/uL (3.8-10.6) H 01/06/18 06:10 RBC 3.83 m/uL (4.30-5.90) L 01/06/18 06:10 Hgb 10.8 gm/dL (13.0-17.5) L 01/06/18 06:10 Hct 34.5 % (39.0-53.0) L 01/06/18 06:10 MCV 90.0 fL (80.0-100.0) 01/06/18 06:10 MCH 28.3 pg (25.0-35.0) 01/06/18 06:10 MCHC 31.5 g/dL (31.0-37.0) 01/06/18 06:10 RDW 13.9 % (11.5-15.5) 01/06/18 06:10 Plt Count 277 k/uL (150-450) 01/06/18 06:10 Neutrophils % 94 % 01/06/18 06:10 Lymphocytes % 2 % 01/06/18 06:10 Monocytes % 3 % 01/06/18 06:10 Eosinophils % 0 % 01/06/18 06:10 Basophils % 0 % 01/06/18 06:10 Neutrophils # 20.9 k/uL (1.3-7.7) H 01/06/18 06:10 Lymphocytes # 0.5 k/uL (1.0-4.8) L 01/06/18 06:10 Monocytes # 0.6 k/uL (0-1.0) 01/06/18 06:10 Eosinophils # 0.1 k/uL (0-0.7) 01/06/18 06:10 Basophils # 0.0 k/uL (0-0.2) 01/06/18 06:10 Hypochromasia Slight 01/06/18 06:10 PT 9.9 sec (9.0-12.0) 01/04/18 10:50 INR 1.0 (<1.2) 01/04/18 10:50 APTT 24.3 sec (22.0-30.0) 01/04/18 10:50 Sodium 135 mmol/L (137-145) L 01/06/18 06:10 Potassium 4.6 mmol/L (3.5-5.1) 01/06/18 06:10 Chloride 100 mmol/L (98-107) 01/06/18 06:10 Carbon Dioxide 29 mmol/L (22-30) 01/06/18 06:10 Anion Gap 6 mmol/L 01/06/18 06:10 BUN 34 mg/dL (9-20) H 01/06/18 06:10 Creatinine 0.92 mg/dL (0.66-1.25) 01/06/18 06:10 Est GFR (CKD-EPI)AfAm 89 (>60 ml/min/1.73 sqM) 01/06/18 06:10 Est GFR (CKD-EPI)NonAf 77 (>60 ml/min/1.73 sqM) 01/06/18 06:10 Glucose 121 mg/dL (74-99) H 01/06/18 06:10 POC Glucose (mg/dL) 166 mg/dL (75-99) H 01/06/18 21:50 POC Glu Motor And [employer] Inspector ID Zac Castle 01/06/18 21:50 Lactic Ac Sepsis Rflx Y 01/04/18 22:29 Plasma Lactic Acid Giovanni 1.4 mmol/L (0.7-2.0) 01/05/18 01:45 Calcium 7.9 mg/dL (8.4-10.2) L 01/06/18 06:10 Total Bilirubin 0.4 mg/dL (0.2-1.3) 01/04/18 10:50 AST 28 U/L (17-59) 01/04/18 10:50 ALT 23 U/L (21-72) 01/04/18 10:50 Alkaline Phosphatase 80 U/L (38-126) 01/04/18 10:50 Total Protein 5.7 g/dL (6.3-8.2) L 01/04/18 10:50 Albumin 2.9 g/dL (3.5-5.0) L 01/04/18 10:50 Amylase 34 U/L (30-110) 01/04/18 10:50 Lipase 44 U/L (23-300) 01/04/18 10:50 Urine Color Yellow 01/04/18 12:55 Urine Appearance Clear (Clear) 01/04/18 12:55 Urine pH 5.5 (5.0-8.0) 01/04/18 12:55 Ur Specific [place] 1.043 (1.001-1.035) H 01/04/18 12:55 Urine Protein Trace (Negative) H 01/04/18 12:55 Urine Glucose (UA) Negative (Negative) 01/04/18 12:55 Urine Ketones Negative (Negative) 01/04/18 12:55 Urine Blood Negative (Negative) 01/04/18 12:55 Urine Nitrite Negative (Negative) 01/04/18 12:55 Urine Bilirubin Negative (Negative) 01/04/18 12:55 Urine Urobilinogen <2.0 mg/dL (<2.0) 01/04/18 12:55 Ur Leukocyte Esterase Negative (Negative) 01/04/18 12:55 Stool Lactoferrin POSITIVE (NEGATIVE) H 01/05/18 18:40 Theophylline 14.5 ug/mL 01/04/18 10:50 C. difficile (EIA) Intrp Positive (Negative) A 01/05/18 11:20 Microbiology 01/05/18 18:40 Stool Stool Culture - Preliminary 01/04/18 12:55 Urine,Voided Urine Culture - Final 01/04/18 10:49 Blood Blood Culture Gram Stain - Preliminary 01/04/18 10:49 Blood Blood Culture - Preliminary Coagulase Negative Staph 01/04/18 10:50 Blood Blood Culture - Final Assessment and Plan (1) Acute exacerbation of chronic obstructive airways disease Current Visit: Yes Status: Acute Code(s): J44.1 - CHRONIC OBSTRUCTIVE PULMONARY DISEASE W (ACUTE) EXACERBATION SNOMED Code(s): 695111913 (2) Colitis Narrative/Plan: 82 year old man Who has a history of oxygen dependent COPD, has had difficulties with chronic pseudomonas infection and is on inhaled tobramycin therapy. He has been doing well without any significant hospitalizations for pneumonia since earlier this year. He over became more short of breath and also started to have some vague abdominal pain and multiple loose stools. With evidence of the positive C. difficile toxin the infectious diseases consultation was requested. There was also evidence of a possible blood culture laboratories now verified that this is a coagulase-negative staph and will not require further intervention. C. diff will be treated with oral vancomycin therapy, given the patient is ill enough to be hospitalized as the current recommendation. Literature review is performed and there is no significant data about inhaled tobramycin resulted in C. diff colitis. However the patient cannot recall any other antibiotic therapy within the last few months, but had multiple antibiotics earlier in the year. His response to therapy will be monitored, but is already feeling better this afternoon. We'll attempt to avoid other antibiotics at this time. If he can tolerate probiotic therapy would add. Current Visit: Yes Status: Acute Code(s): K52.9 - NONINFECTIVE GASTROENTERITIS AND COLITIS, UNSPECIFIED SNOMED Code(s): 75723359
[2018-01-07] MEDS: IPRATROPIUM-ALBUTEROL 3 ML NEB INHALATION SCH ×6 (04:11→23:53)
[2018-01-07 06:40] LABS: Glucose,Whole Blood 125 mg/dL (75-99)
[2018-01-07] MEDS: INSULIN ASPART 100 UNIT/ML 1 ML 10 ML VIAL SQ SCH ×4 (06:44→21:36)
[2018-01-07] MEDS: methylPREDNISolone SOD SUCCI 125 MG/2 ML VIAL IV SCH ×4 (06:49→23:41)
[2018-01-07] MEDS: VANCOMYCIN ORAL SOLUTION 250 MG/5 ML BOTTLE PO SCH ×4 (06:49→23:41)
[2018-01-07] MEDS: CHERRY FLAVOR 60 ML BOTTLE PO SCH ×4 (06:49→23:41)
[2018-01-07] MEDS: BUDESONIDE 1 MG/2 ML NEBU INHALATION SCH ×2 (09:15→19:43)
[2018-01-07] MEDS: FORMOTEROL FUMARATE 20 MCG/2 ML NEBU INHALATION SCH ×2 (09:15→19:43)
[2018-01-07] MEDS: busPIRone HCl 5 MG TAB PO SCH ×2 (09:55→21:34)
[2018-01-07 11:36] LABS: Glucose,Whole Blood 132 mg/dL (75-99)
--- NOTE | 2018-01-07 11:48 | P.PN ---
Subjective Progress Note Date: 01/07/18 Principal diagnosis: Acute colitis, diarrhea, leukocytosis, rule out bacterial colitis and C. diff colitis. Acute exacerbation of COPD 82-year-old male patient with advanced COPD and previous history of recurrent COPD exacerbation recurrent infection with Pseudomonas maintained on inhaled tobramycin on outpatient basis. The patient is quite debilitated from his COPD and his oxygen dependent at 5 L of oxygen by nasal cannula at baseline. He came to the emergency department because of worsening difficulty breathing over the past 1 week. However he also complained of 4-5 bouts of liquidy diarrhea and diffuse abdominal discomfort and pain with some nausea without emesis. He apparently had 3-4 bouts of diarrhea yesterday. No recent antibiotic intake. No documented fever. CAT scan of the abdomen was done in the ED, and it showed gross thickening of the colon including the sigmoid colon and ascending colon and descending colon. There is considered to be consistent with infectious rather than inflammatory colitis. The patient was started on a combination of Levaquin and Flagyl. Stool for C. diff will be sent. He came in originally with some tachycardia and he responded to IV fluids and the patient's heart rate is down although he remains to be in some degree of sinus tachycardia. No dizziness. He has some leukocytosis with a white cell count of 26.3. Initial lactic acid level was at 3.7. Rest of the blood work including the liver function tests are all within normal limits. Amylase and lipase are within normal limits. On 01/05/2018 patient seen in follow-up on selective care unit. His diarrhea has slowed down, and we have not been able to collect a stool sample for C. diff. No abdominal pain. No fever, vital signs remain stable. He remains bronchospastic on today's exam, occasional cough, with production of clear phlegm. He remains on IV antibiotics, Levaquin, Flagyl and vancomycin, IV steroids, and nebulized bronchodilators. Right the on 5 L per nasal cannula, his pulse ox of 95%. Urine and blood cultures are negative thus far. Actiq acid has come down to 1.4, he is hemodynamically stable. On 01/06/2018 patient seen in follow-up on selective care unit. His diarrhea has slowed down, he states it is formed stool now, he was found to be positive for C. diff. Hiss Levaquin and Vancomycin has been discontinued, patient remains on Flagyl. Afebrile, hemodynamically stable, on sounds are diminished, with end expiratory wheezing, overall less bronchospastic on today's exam, although remains short of breath with any exertion. Occasional cough, production of sputum, we will collect sputum for culture. Today's labs have been reviewed, WBCs 22.1, hemoglobin is 10.8, sodium is up to 135, the rest of electrolytes were within normal limits, BUN is 34 creatinine 0.92 On 01/07/2018 patient seen in follow-up on selective care unit. Patient had 6 episodes of diarrhea yesterday, and 1 this morning. Service saw the patient in consultation, and switch to IV Flagyl to oral vancomycin for cdiff colitis. From pulmonary perspective, patient's breathing is improving, although patient still did wheezing, sounds a bit less bronchospastic on today's exam. Pulse ox on 4 L per nasal cannula is 93%, patient is afebrile, hemodynamically stable. T current medical treatment, IV steroids, nebulized bronchodilators, oral vancomycin. Increase activity as tolerated, we'll continue to follow. Objective - Vital Signs Vital signs: Vital Signs Temp 97.4 F L 01/07/18 08:20 Pulse 106 H 01/07/18 09:33 Resp 18 01/07/18 08:20 BP 133/76 01/07/18 08:20 Pulse Ox 93 L 01/07/18 08:20 Intake & Output 01/06/18 01/07/18 01/07/18 18:59 06:59 18:59 Intake Total 740 800 120 Output Total 500 300 Balance 240 800 -180 Intake: IV 800 Sodium Chloride 0.9% 1, 800 000 ml @ 50 mls/hr IV . Q20H [facility] Rx#:[id number] Oral 740 120 Output: Urine 500 300 Other: Voiding Method Urinal Urinal # Voids 1 # Bowel Movements 1 4 1 - Exam GENERAL EXAM: Alert, fairly comfortable in no acute respiratory distress. EYES: Normal reaction of pupils, equal size. NOSE: Clear with pink turbinates. THROAT: No erythema or exudates. NECK: No masses, no JVD. CHEST: No chest wall deformity. LUNGS: Diminished bilaterally with scattered expiratory wheezes throughout the lung pichardo bilaterally CVS: S1 and S2 normal with no audible murmur, regular rhythm. ABDOMEN: No hepatosplenomegaly, normal bowel sounds, no guarding or rigidity. SPINE: No scoliosis or deformity SKIN: No rashes CENTRAL NERVOUS SYSTEM: No focal deficits, tone is normal in all 4 extremities. EXTREMITIES: There is no peripheral edema. No clubbing, no cyanosis. Peripheral pulses are intact. - Labs CBC & Chem 7: 01/06/18 06:10 01/06/18 06:10 Labs: Abnormal Lab Results - Last 24 Hours (Table) 01/06/18 01/06/18 01/07/18 Range/Units 16:23 21:50 06:39 POC Glucose (mg/dL) 146 H 166 H 125 H (75-99) mg/dL 01/07/18 Range/Units 11:34 POC Glucose (mg/dL) 132 H (75-99) mg/dL Microbiology - Last 24 Hours (Table) 01/06/18 16:54 Gram Stain - Preliminary Sputum Sputum Culture - Preliminary 01/04/18 10:49 Blood Culture Gram Stain - Final Blood Blood Culture - Final Coagulase Negative Staph Assessment and Plan Plan: 1 acute colitis with secondary acute diarrhea and leukocytosis. Rule out bacterial colitis including the possibility of C. diff colitis. 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 Diarrhea seems to be slowing down. Sputum, stool cultures are pending. No fever, no chills, hemodynamically stable. We'll continue to follow. I performed a history & physical examination of the patient and discussed their management with my nurse practitioner, Loulou Cross. I reviewed the nurse practitioner's note and agree with the documented findings and plan of care. Lung sounds are positive for diffuse wheezes throughout the lung pichardo. The findings and the impression was discussed with the patient. I attest to the documentation by the nurse practitioner. Time with Patient: Less than 30
[2018-01-07] MEDS: MULTIVITAMINS, THERA 1 EACH TAB PO SCH (12:50)
[2018-01-07 16:39] LABS: Glucose,Whole Blood 148 mg/dL (75-99)
[2018-01-07 21:17] LABS: Glucose,Whole Blood 170 mg/dL (75-99)
[2018-01-07] MEDS: ATORVASTATIN 10 MG TAB PO SCH (21:34)
[2018-01-07] MEDS: ASPIRIN 81 MG PO SCH (21:34)
[2018-01-07] MEDS: CITALOPRAM HYDROBROMIDE 20 MG TAB PO SCH (21:34)
[2018-01-07] MEDS: MELATONIN 3 MG TABLET PO SCH (21:34)
[2018-01-07] MEDS: TAMSULOSIN 0.4 MG CAP.ER.24H PO SCH (21:34)
[2018-01-07] MEDS: SODIUM CHLORIDE 0.9% 1,000 ML IV SCH (21:35)
[2018-01-07] MEDS: LACTOBACILLUS ACIDOPH & BULGAR 1 EACH PACKET PO SCH (21:35)
--- NOTE | 2018-01-07 23:43 | P.PN ---
Subjective Progress Note Date: 01/07/18 82-year-old male is well-known to the infectious disease service from his prior hospitalizations and office follow-up through the summer. The patient has a known history of advanced oxygen and occasionally steroid- dependent extremities be COPD, he was having frequent exacerbations and was with a [id number] pseudomonas aeruginosa. 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 He is becoming more short of breath he was having increasing weakness was having off and about 4 stools a day. Occasionally were watery but most of the time it was formed. He does relate to some crampy abdominal pain especially the left lower quadrant. He is not having nausea or emesis. He is having no hematemesis or melena or hematochezia. He does have fatigue and malaise. 01/07/2018 the patient is feeling about the same as he has had the last few days but the frequency of stools has improved slightly. Is not having fevers or trills. Does not have much abdominal pain. Objective - Vital Signs Vital signs: Vital Signs Temp 97.4 F L 01/07/18 15:00 Pulse 113 H 01/07/18 20:15 Resp 16 01/07/18 20:15 BP 134/70 01/07/18 15:00 Pulse Ox 95 01/07/18 16:22 Intake & Output 01/07/18 01/07/18 01/08/18 06:59 18:59 06:59 Intake Total 800 1400 270 Output Total 300 150 Balance 800 1100 120 Intake: IV 800 400 150 Sodium Chloride 0.9% 1, 800 400 150 000 ml @ 50 mls/hr IV . Q20H [facility] Rx#:[id number] Oral 1000 120 Output: Urine 300 150 Other: Voiding Method Urinal Toilet Urinal # Voids 1 1 # Bowel Movements 4 1 1 - Exam 82-year-old male who is on oxygen at 5 L which is his baseline dose relates that he's feeling better since coming to hospital, short of breath and is having potentially some improvement of his stools. HEENT: Anicteric conjunctiva are pink and moist nasal mucosa grossly intact without significant lesions, there is no thrush. Neck: The neck is supple without significant lymphadenopathy or thyromegaly. Lungs: Symmetrical air entry is noted, rare expiratory wheezes are heard no blanca bronchial sounds dullness or egophony Heart: Regular rate and rhythm with an audible S1-S2, no S3 no S4. There is no significant murmur click or rub, PMI was nondisplaced. Abdomen: The abdomen is soft and nondistended, no palpable hepatosplenomegaly, no masses no guarding or rebound has minimal left lower quadrant tenderness Extremities: The upper extremities have excellent pulses they are symmetric, no significant petechiae or telangiectasia. No splinter hemorrhages were noted. The lower extremities are free from significant edema. The peripheral pulses were 2+ and symmetric. Neuro: Awake alert oriented to person place and time. There are no acute new gross focal sensory motor deficits. - Labs CBC & Chem 7: 01/06/18 06:10 01/06/18 06:10 Labs: Abnormal Lab Results - Last 24 Hours (Table) 01/07/18 01/07/18 01/07/18 Range/Units 06:39 11:34 16:37 POC Glucose (mg/dL) 125 H 132 H 148 H (75-99) mg/dL 01/07/18 Range/Units 21:16 POC Glucose (mg/dL) 170 H (75-99) mg/dL Microbiology - Last 24 Hours (Table) 01/05/18 18:40 Stool Culture - Preliminary Stool 01/06/18 16:54 Gram Stain - Preliminary Sputum Sputum Culture - Preliminary 01/04/18 10:49 Blood Culture Gram Stain - Final Blood Blood Culture - Final Coagulase Negative Staph Laboratory Results WBC 22.1 k/uL (3.8-10.6) H 01/06/18 06:10 RBC 3.83 m/uL (4.30-5.90) L 01/06/18 06:10 Hgb 10.8 gm/dL (13.0-17.5) L 01/06/18 06:10 Hct 34.5 % (39.0-53.0) L 01/06/18 06:10 MCV 90.0 fL (80.0-100.0) 01/06/18 06:10 MCH 28.3 pg (25.0-35.0) 01/06/18 06:10 MCHC 31.5 g/dL (31.0-37.0) 01/06/18 06:10 RDW 13.9 % (11.5-15.5) 01/06/18 06:10 Plt Count 277 k/uL (150-450) 01/06/18 06:10 Neutrophils % 94 % 01/06/18 06:10 Lymphocytes % 2 % 01/06/18 06:10 Monocytes % 3 % 01/06/18 06:10 Eosinophils % 0 % 01/06/18 06:10 Basophils % 0 % 01/06/18 06:10 Neutrophils # 20.9 k/uL (1.3-7.7) H 01/06/18 06:10 Lymphocytes # 0.5 k/uL (1.0-4.8) L 01/06/18 06:10 Monocytes # 0.6 k/uL (0-1.0) 01/06/18 06:10 Eosinophils # 0.1 k/uL (0-0.7) 01/06/18 06:10 Basophils # 0.0 k/uL (0-0.2) 01/06/18 06:10 Hypochromasia Slight 01/06/18 06:10 PT 9.9 sec (9.0-12.0) 01/04/18 10:50 INR 1.0 (<1.2) 01/04/18 10:50 APTT 24.3 sec (22.0-30.0) 01/04/18 10:50 Sodium 135 mmol/L (137-145) L 01/06/18 06:10 Potassium 4.6 mmol/L (3.5-5.1) 01/06/18 06:10 Chloride 100 mmol/L (98-107) 01/06/18 06:10 Carbon Dioxide 29 mmol/L (22-30) 01/06/18 06:10 Anion Gap 6 mmol/L 01/06/18 06:10 BUN 34 mg/dL (9-20) H 01/06/18 06:10 Creatinine 0.92 mg/dL (0.66-1.25) 01/06/18 06:10 Est GFR (CKD-EPI)AfAm 89 (>60 ml/min/1.73 sqM) 01/06/18 06:10 Est GFR (CKD-EPI)NonAf 77 (>60 ml/min/1.73 sqM) 01/06/18 06:10 Glucose 121 mg/dL (74-99) H 01/06/18 06:10 POC Glucose (mg/dL) 170 mg/dL (75-99) H 01/07/18 21:16 POC Glu Environmental Field Professional ID Zac Castle 01/07/18 21:16 Lactic Ac Sepsis Rflx Y 01/04/18 22:29 Plasma Lactic Acid Giovanni 1.4 mmol/L (0.7-2.0) 01/05/18 01:45 Calcium 7.9 mg/dL (8.4-10.2) L 01/06/18 06:10 Total Bilirubin 0.4 mg/dL (0.2-1.3) 01/04/18 10:50 AST 28 U/L (17-59) 01/04/18 10:50 ALT 23 U/L (21-72) 01/04/18 10:50 Alkaline Phosphatase 80 U/L (38-126) 01/04/18 10:50 Total Protein 5.7 g/dL (6.3-8.2) L 01/04/18 10:50 Albumin 2.9 g/dL (3.5-5.0) L 01/04/18 10:50 Amylase 34 U/L (30-110) 01/04/18 10:50 Lipase 44 U/L (23-300) 01/04/18 10:50 Urine Color Yellow 01/04/18 12:55 Urine Appearance Clear (Clear) 01/04/18 12:55 Urine pH 5.5 (5.0-8.0) 01/04/18 12:55 Ur Specific [place] 1.043 (1.001-1.035) H 01/04/18 12:55 Urine Protein Trace (Negative) H 01/04/18 12:55 Urine Glucose (UA) Negative (Negative) 01/04/18 12:55 Urine Ketones Negative (Negative) 01/04/18 12:55 Urine Blood Negative (Negative) 01/04/18 12:55 Urine Nitrite Negative (Negative) 01/04/18 12:55 Urine Bilirubin Negative (Negative) 01/04/18 12:55 Urine Urobilinogen <2.0 mg/dL (<2.0) 01/04/18 12:55 Ur Leukocyte Esterase Negative (Negative) 01/04/18 12:55 Stool Lactoferrin POSITIVE (NEGATIVE) H 01/05/18 18:40 Theophylline 14.5 ug/mL 01/04/18 10:50 C. difficile (EIA) Intrp Positive (Negative) A 01/05/18 11:20 Microbiology 01/05/18 18:40 Stool Stool Culture - Preliminary 01/06/18 16:54 Sputum Gram Stain - Preliminary 01/06/18 16:54 Sputum Sputum Culture - Preliminary 01/04/18 10:49 Blood Blood Culture Gram Stain - Final 01/04/18 10:49 Blood Blood Culture - Final Coagulase Negative Staph 01/04/18 12:55 Urine,Voided Urine Culture - Final 01/04/18 10:50 Blood Blood Culture - Final Assessment and Plan (1) Acute exacerbation of chronic obstructive airways disease Current Visit: Yes Status: Acute Code(s): J44.1 - CHRONIC OBSTRUCTIVE PULMONARY DISEASE W (ACUTE) EXACERBATION SNOMED Code(s): 422883593 (2) Colitis Narrative/Plan: 82 year old man Who has a history of oxygen dependent COPD, has had difficulties with chronic pseudomonas infection and is on inhaled tobramycin therapy. He has been doing well without any significant hospitalizations for pneumonia since earlier this year. He over became more short of breath and also started to have some vague abdominal pain and multiple loose stools. With evidence of the positive C. difficile toxin the infectious diseases consultation was requested. There was also evidence of a possible blood culture laboratories now verified that this is a coagulase-negative staph and will not require further intervention. C. diff will be treated with oral vancomycin therapy, given the patient is ill enough to be hospitalized as the current recommendation. Literature review is performed and there is no significant data about inhaled tobramycin resulted in C. diff colitis. However the patient cannot recall any other antibiotic therapy within the last few months, but had multiple antibiotics earlier in the year. His response to therapy will be monitored, but is already feeling better this afternoon. We'll attempt to avoid other antibiotics at this time. If he can tolerate probiotic therapy would add. 01/07/2018 the patient is stable to improved, still having some loose stools and still feels poorly. His shortness of breath is about at baseline and is on his usual 5 L nasal cannula of oxygen. WBC had a significant change of the sputum production as of late. Remains very pleased with his inhaled tobramycin therapy and how this is certainly help his pulmonary status. We'll plan 10 days of vancomycin therapy 250 mg orally 4 times a day. We'll add Questran to the regimen to see if this can improve the bulk of his stools at may help him symptomatically. Attempting to avoid other antibiotic therapy at this time. We'll continue his usual inhaled tobramycin therapy. Current Visit: Yes Status: Acute Code(s): K52.9 - NONINFECTIVE GASTROENTERITIS AND COLITIS, UNSPECIFIED SNOMED Code(s): 44723250
[2018-01-08] MEDS: PANTOPRAZOLE 40 MG/10 ML VIAL IVP SCH ×3 (03:31→21:24)
[2018-01-08 04:01] LABS: Hemoglobin A1C 5.4 % (4.0-6.0)
[2018-01-08] MEDS: IPRATROPIUM-ALBUTEROL 3 ML NEB INHALATION SCH ×5 (04:04→21:47)
[2018-01-08 06:01] LABS: Glucose,Whole Blood 135 mg/dL (75-99)
[2018-01-08] MEDS: methylPREDNISolone SOD SUCCI 125 MG/2 ML VIAL IV SCH ×3 (07:06→17:08)
[2018-01-08] MEDS: VANCOMYCIN ORAL SOLUTION 250 MG/5 ML BOTTLE PO SCH ×4 (07:07→18:03)
[2018-01-08] MEDS: CHERRY FLAVOR 60 ML BOTTLE PO SCH ×3 (07:07→17:18)
[2018-01-08] MEDS: INSULIN ASPART 100 UNIT/ML 1 ML 10 ML VIAL SQ SCH ×4 (07:07→21:25)
[2018-01-08] MEDS: BUDESONIDE 1 MG/2 ML NEBU INHALATION SCH ×2 (08:22→21:47)
[2018-01-08] MEDS: FORMOTEROL FUMARATE 20 MCG/2 ML NEBU INHALATION SCH ×2 (08:22→21:47)
[2018-01-08] MEDS: CHOLESTYRAMINE (WITH SUGAR) 4 GM PACKET PO SCH ×4 (08:51→21:25)
[2018-01-08] MEDS: busPIRone HCl 5 MG TAB PO SCH ×2 (08:51→21:24)
[2018-01-08] MEDS: LACTOBACILLUS ACIDOPH & BULGAR 1 EACH PACKET PO SCH ×2 (08:51→21:25)
--- NOTE | 2018-01-08 10:34 | P.PN ---
Subjective Progress Note Date: 01/07/18 Progress note being dictated for Dr. Yu Interval history:Patient is a 82-year-old male with a known history of COPD, hyperlipidemia and history of Pseudomonas pneumonia diagnosed some time in April 2017 and is currently maintained on inhaled tobramycin every other month as per ID recommendations came to ER with complaints of abdominal pain and diarrhea. Patient did have diarrhea for the past 2 days and he did take Imodium at home. Patient does have nausea. No episodes of vomiting. 3-4 loose stools yesterday. Patient denied abdominal pain last night which has been getting worse and made him come to ER. Denied any hematemesis or melena. Denied any gross blood in the stool. Patient does have fever with T-max 100.9 on admission. Patient was tachycardic on admission. Patient was also having difficulty breathing while in the ER. Does have cough with whitish to light yellow sputum production. No change in color recently. Patient did see his doctor 2 days ago and was started on theophylline and steroids. Patient does have COPD oxygen dependent file it with another cannula. CT of the abdomen pelvis showed in the ER showed gross thickening of the colon including sigmoid colon and descending colon .. Consistent with infectious rather than intermittently colitis. Emphysematous changes as well as pulmonary fibrosis. Cholelithiasis and evidence of old granulomatous disease. Chest x-ray showed improved aeration and pulmonary fibrosis. EKG showed sinus tachycardia WBC 26.3 Lactic acid 3.7 Patient was started on antibiotics in the form of Levaquin and Flagyl. C. diff toxin was sent. 01/05/2018 Patient is still having abdominal pain but much improved. Patient did have small bowel movement and C. diff toxin was sent is came out positive. Otherwise blood cultures showed coagulase-negative staph aureus. Vancomycin has been discontinued. Discontinue Levaquin as well. Patient will be continued on Flagyl 3 times a day. Patient is being continued on breathing treatments and IV steroids. Lactic acidosis resolved. Patient will be continued on gentle hydration. 01/06/2018 diarrhea improving. Breathing better, occasional productive cough - sputum culture pending .Exertional shortness of breath. Urine culture pending Maintained on gentle IV fluid hydration, Flagyl. Afebrile, WBC 22.1. Creatinine 0.92. Review of systems: CONSTITUTIONAL: No fever, no malaise, no fatigue. HEENT: No recent visual problems or hearing problems. Denied any sore throat. CARDIOVASCULAR: No chest pain, orthopnea, PND, no palpitations, no syncope. PULMONARY: No shortness of breath, no cough, no hemoptysis. GASTROINTESTINAL: No diarrhea, no nausea, no vomiting, no abdominal pain. Normoactive bowel sounds. NEUROLOGICAL: No headaches, no weakness, no numbness. HEMATOLOGICAL: Denies any bleeding or petechiae. GENITOURINARY: Denies any burning micturition, frequency, or urgency. MUSCULOSKELETAL/RHEUMATOLOGICAL: Denies any joint pain, swelling, or any muscle pain. ENDOCRINE: Denies any polyuria or polydipsia. PSYCHIATRIC: No anxiety, no depression The rest of the 14 point review of systems is negative 01/07/2018 maintained on oral vancomycin, IV Flagyl for C. diff colitis .diarrhea improving, 1 episode today, so far. Continues on nebulized bronchodilators, IV steroids. Breathing improving, maintaining O2 sats in the low 90s on 4 L nasal cannula. Afebrile. Review of systems: CONSTITUTIONAL: positive malaise and fatigue. HEENT: No recent visual problems or hearing problems. Denied any sore throat. CARDIOVASCULAR: No chest pain, orthopnea, PND, no palpitations, no syncope. PULMONARY: improving shortness of breath, no cough, no hemoptysis. GASTROINTESTINAL: Improving diarrhea, no nausea, no vomiting, positive abdominal cramping. Normoactive bowel sounds. NEUROLOGICAL: No headaches, generalized weakness HEMATOLOGICAL: Denies any bleeding or petechiae. GENITOURINARY: Denies any burning micturition, frequency, or urgency. MUSCULOSKELETAL/RHEUMATOLOGICAL: Denies any joint pain, swelling, or any muscle pain. ENDOCRINE: Denies any polyuria or polydipsia. PSYCHIATRIC: positive anxiety, no depression The rest of the 14 point review of systems is negative Active Medications Albuterol/Ipratropium (Duoneb 0.5 Mg-3 Mg/3 Ml Soln) 3 ml INHALATION RT-Q4H PRN PRN Reason: Shortness Of Breath Or Wheezing Albuterol/Ipratropium (Duoneb 0.5 Mg-3 Mg/3 Ml Soln) 3 ml INHALATION RT-Q4H [facility] Last Admin: 01/07/18 19:43 Dose: 3 ml Alprazolam (Xanax) 1 mg PO DAILY PRN PRN Reason: Anxiety Last Admin: 01/06/18 22:13 Dose: 1 mg Aspirin (Aspirin) 81 mg PO HS [facility] Last Admin: 01/06/18 20:43 Dose: 81 mg Atorvastatin Calcium (Lipitor) 10 mg PO HS [facility] Last Admin: 01/06/18 20:43 Dose: 10 mg Budesonide (Pulmicort) 1 mg INHALATION RT-BID [facility] Last Admin: 01/07/18 19:43 Dose: 1 mg Buspirone HCl (Buspar) 5 mg PO BID [facility] Last Admin: 01/07/18 09:55 Dose: 5 mg Mike Syrup (Mike Syrup) 5 ml PO Q6HR [facility] Last Admin: 01/07/18 17:57 Dose: 5 ml Cholestyramine Resin (Questran) 4 gm PO TID BETWEEN MEALS [facility] Citalopram Hydrobromide (Celexa) 40 mg PO [facility] Last Admin: 01/06/18 20:43 Dose: 40 mg Formoterol Fumarate (Perforomist) 20 mcg INHALATION RT-BID [facility] Last Admin: 01/07/18 19:43 Dose: 20 mcg Sodium Chloride (Saline 0.9%) 1,000 mls @ 50 mls/hr IV .Q20H [facility] Last Admin: 01/06/18 08:24 Dose: 50 mls/hr Insulin Aspart (Novolog) 0 unit SQ [facility]; Protocol Last Admin: 01/07/18 17:57 Dose: 1 unit Melatonin (Melatonin) 3 mg PO [facility] Last Admin: 01/06/18 20:42 Dose: Not Given Methylprednisolone Sodium Succinate (Solu-Medrol) 60 mg IV Q6HR [facility] Last Admin: 01/07/18 17:58 Dose: 60 mg Multivitamins (Theragran) 1 each PO 1200 [facility] Last Admin: 01/07/18 12:50 Dose: 1 each Vancomycin HCl (Vancomycin Oral Solution) 250 mg PO Q6HR [facility] Last Admin: 01/07/18 17:57 Dose: 250 mg Objective - Vital Signs Vital signs: Vital Signs Temp 97.4 F L 01/07/18 15:00 Pulse 104 H 01/07/18 19:43 Resp 16 01/07/18 19:43 BP 134/70 01/07/18 15:00 Pulse Ox 95 01/07/18 16:22 Intake & Output 01/07/18 01/07/18 01/08/18 06:59 18:59 06:59 Intake Total 800 1400 Output Total 300 Balance 800 1100 Intake: IV 800 400 Sodium Chloride 0.9% 1, 800 400 000 ml @ 50 mls/hr IV . Q20H [facility] Rx#:[id number] Oral 1000 Output: Urine 300 Other: Voiding Method Urinal # Voids 1 # Bowel Movements 4 1 - Exam PHYSICAL EXAMINATION: Patient is sitting up in the bed comfortably, no acute distress, awake alert and oriented.. HEENT: Normocephalic. Neck is supple. Pupils reactive. Nostrils clear. Oral mucosa moist Neck reveals no JVD, carotid bruits, or thyromegaly. CHEST EXAMINATION: Diminished with Bilateral expiratory wheezes, no crackles and minimal rhonchi. CARDIAC: Normal S1, S2 with no gallops. No murmurs ABDOMEN: Soft. Distended. Mild left lower quadrant tenderness. Bowel sounds normal. No organomegaly. Extremities: reveal no edema. No clubbing or cyanosis Neurologically awake, alert, oriented x3 with well-coordinated movements. No focal deficits noted Skin: No rash or skin lesions. Musculoskeletal: No joint swelling or deformity. Normal range of motion. Microbiology 01/05/18 18:40 Stool Stool Culture - Preliminary 01/06/18 16:54 Sputum Gram Stain - Preliminary 01/06/18 16:54 Sputum Sputum Culture - Preliminary 01/04/18 10:49 Blood Blood Culture Gram Stain - Final 01/04/18 10:49 Blood Blood Culture - Final Coagulase Negative Staph 01/04/18 12:55 Urine,Voided Urine Culture - Final 01/04/18 10:50 Blood Blood Culture - Final - Labs CBC & Chem 7: 01/06/18 06:10 01/06/18 06:10 Labs: Abnormal Lab Results - Last 24 Hours (Table) 01/06/18 01/07/18 01/07/18 Range/Units 21:50 06:39 11:34 POC Glucose (mg/dL) 166 H 125 H 132 H (75-99) mg/dL 01/07/18 Range/Units 16:37 POC Glucose (mg/dL) 148 H (75-99) mg/dL Microbiology - Last 24 Hours (Table) 01/05/18 18:40 Stool Culture - Preliminary Stool 01/06/18 16:54 Gram Stain - Preliminary Sputum Sputum Culture - Preliminary 01/04/18 10:49 Blood Culture Gram Stain - Final Blood Blood Culture - Final Coagulase Negative Staph Assessment and Plan Assessment: Sepsis secondary to C. diff colitis. Diarrhea improving. Lactic acidosis secondary to infection and volume depletion. Improved Severe COPD with exacerbation and chronic hypoxic respiratory failure on file later nausea cannula oxygen. Recent history of Pseudomonas pneumonia and failed antibiotic therapy. Currently on inhaled tobramycin every other month as per ID Pulmonary fibrosis History of prostate cancer with radiation in 2007 and seed implants History of MRSA History of skin cancer remote from right forearm Hyperlipidemia Anxiety/depression Previous history of smoking DVT prophylaxis Plan: Continue on current medication regime ,monitoring and symptomatic treatment. Stool/sputum cultures pending. Continue IV antibiotics as per infectious disease. Maintain nebulized bronchodilators, IV steroids. Maintain gentle IV fluid hydration, Flagyl. Questran added to med regime-between meals, not with meals. [place], low fiber diet, lactose-free. Continue nebulized bronchodilators, systemic steroids. Increase ambulation, as tolerated. The impression and plan of care has been dictated as directed. : I performed a history and examination of this patient, discussed the same with the dictator. I agree with the dictator's note ,documented as a scribe. Any additional findings or plans will be noted.
[2018-01-08 11:45] LABS: Glucose,Whole Blood 137 mg/dL (75-99)
[2018-01-08] MEDS: MULTIVITAMINS, THERA 1 EACH TAB PO SCH (11:57)
--- NOTE | 2018-01-08 12:43 | P.PN ---
Subjective Progress Note Date: 01/08/18 Principal diagnosis: Acute colitis, diarrhea, leukocytosis, rule out bacterial colitis and C. diff colitis. Acute exacerbation of COPD 82-year-old male patient with advanced COPD and previous history of recurrent COPD exacerbation recurrent infection with Pseudomonas maintained on inhaled tobramycin on outpatient basis. The patient is quite debilitated from his COPD and his oxygen dependent at 5 L of oxygen by nasal cannula at baseline. He came to the emergency department because of worsening difficulty breathing over the past 1 week. However he also complained of 4-5 bouts of liquidy diarrhea and diffuse abdominal discomfort and pain with some nausea without emesis. He apparently had 3-4 bouts of diarrhea yesterday. No recent antibiotic intake. No documented fever. CAT scan of the abdomen was done in the ED, and it showed gross thickening of the colon including the sigmoid colon and ascending colon and descending colon. There is considered to be consistent with infectious rather than inflammatory colitis. The patient was started on a combination of Levaquin and Flagyl. Stool for C. diff will be sent. He came in originally with some tachycardia and he responded to IV fluids and the patient's heart rate is down although he remains to be in some degree of sinus tachycardia. No dizziness. He has some leukocytosis with a white cell count of 26.3. Initial lactic acid level was at 3.7. Rest of the blood work including the liver function tests are all within normal limits. Amylase and lipase are within normal limits. On 01/05/2018 patient seen in follow-up on selective care unit. His diarrhea has slowed down, and we have not been able to collect a stool sample for C. diff. No abdominal pain. No fever, vital signs remain stable. He remains bronchospastic on today's exam, occasional cough, with production of clear phlegm. He remains on IV antibiotics, Levaquin, Flagyl and vancomycin, IV steroids, and nebulized bronchodilators. Right the on 5 L per nasal cannula, his pulse ox of 95%. Urine and blood cultures are negative thus far. Actiq acid has come down to 1.4, he is hemodynamically stable. On 01/06/2018 patient seen in follow-up on selective care unit. His diarrhea has slowed down, he states it is formed stool now, he was found to be positive for C. diff. Hiss Levaquin and Vancomycin has been discontinued, patient remains on Flagyl. Afebrile, hemodynamically stable, on sounds are diminished, with end expiratory wheezing, overall less bronchospastic on today's exam, although remains short of breath with any exertion. Occasional cough, production of sputum, we will collect sputum for culture. Today's labs have been reviewed, WBCs 22.1, hemoglobin is 10.8, sodium is up to 135, the rest of electrolytes were within normal limits, BUN is 34 creatinine 0.92 On 01/07/2018 patient seen in follow-up on selective care unit. Patient had 6 episodes of diarrhea yesterday, and 1 this morning. Service saw the patient in consultation, and switch to IV Flagyl to oral vancomycin for cdiff colitis. From pulmonary perspective, patient's breathing is improving, although patient still did wheezing, sounds a bit less bronchospastic on today's exam. Pulse ox on 4 L per nasal cannula is 93%, patient is afebrile, hemodynamically stable. T current medical treatment, IV steroids, nebulized bronchodilators, oral vancomycin. Increase activity as tolerated, we'll continue to follow. On 01/08/2018 patient seen in follow-up on selective care unit. Patient continues to have frequent loose stools, was up all night going to the bathroom. He is on oral vancomycin, and Questran. He is quiet dyspneic with exertion, frequent trips to the bathroom, however lung sounds are improving, and patient has hardly any wheezing on today's exam. Continue current medical treatment for COPD. Continue to follow. No new chest x-rays or labs today Objective - Vital Signs Vital signs: Vital Signs Temp 97 F L 01/08/18 08:27 Pulse 98 01/08/18 11:54 Resp 19 01/08/18 08:27 BP 125/79 01/08/18 08:27 Pulse Ox 94 L 01/08/18 08:27 Intake & Output 01/07/18 01/08/18 01/08/18 18:59 06:59 18:59 Intake Total 1400 1060 480 Output Total 300 150 Balance 1100 910 480 Weight 79.3 kg Intake: IV 400 700 Sodium Chloride 0.9% 1, 400 700 000 ml @ 50 mls/hr IV . Q20H JANETTE Rx#:[id number] Oral 1000 360 480 Output: Urine 300 150 Other: Voiding Method Toilet Toilet Urinal Urinal # Voids 1 1 # Bowel Movements 1 2 - Exam GENERAL EXAM: Alert, fairly comfortable in no acute respiratory distress. EYES: Normal reaction of pupils, equal size. NOSE: Clear with pink turbinates. THROAT: No erythema or exudates. NECK: No masses, no JVD. CHEST: No chest wall deformity. LUNGS: Diminished bilaterally, improved air entry noted bilaterally, no wheezes , no rhonchi or rales CVS: S1 and S2 normal with no audible murmur, regular rhythm. ABDOMEN: No hepatosplenomegaly, normal bowel sounds, no guarding or rigidity. SPINE: No scoliosis or deformity SKIN: No rashes CENTRAL NERVOUS SYSTEM: No focal deficits, tone is normal in all 4 extremities. EXTREMITIES: There is no peripheral edema. No clubbing, no cyanosis. Peripheral pulses are intact. - Labs CBC & Chem 7: 01/06/18 06:10 01/06/18 06:10 Labs: Abnormal Lab Results - Last 24 Hours (Table) 01/07/18 01/07/18 01/08/18 Range/Units 16:37 21:16 05:56 POC Glucose (mg/dL) 148 H 170 H 135 H (75-99) mg/dL 01/08/18 Range/Units 11:43 POC Glucose (mg/dL) 137 H (75-99) mg/dL Microbiology - Last 24 Hours (Table) 01/06/18 16:54 Gram Stain - Preliminary Sputum Sputum Culture - Preliminary Gram Neg Bacilli [place] albicans 01/05/18 18:40 Stool Culture - Preliminary Stool Assessment and Plan Plan: 1 acute colitis with secondary acute diarrhea and leukocytosis. Rule out bacterial colitis including the possibility of C. diff colitis. 2 acute diarrhea, improved 3 acute leukocytosis 4 acute lactic acidosis, improved 5 severe COPD with chronic hypoxic respiratory failure and the patient has been on 5 L of oxygen by nasal cannula, with a previous FEV1 being at 45% of predicted 6 recurrent pulmonary infections with pseudomonas aeruginosa maintained on inhaled tobramycin outpatient basis 7 previous history of MRSA lung infection 8 prostate cancer with a previous radiation therapy 9 hyperlipidemia 10 chronic anxiety/depression 11 sinus tachycardia secondary to above Plan: Continue current medical treatment, continue current dose of IV Solu-Medrol, nebulized bronchodilators, Pulmicort and Perforomist. Patient is dyspneic with exertion, he is still having frequent trips to the bathroom, but sounds as bronchospastic on today's exam. Continue to follow I performed a history & physical examination of the patient and discussed their management with my nurse practitioner, Loulou Cross. I reviewed the nurse practitioner's note and agree with the documented findings and plan of care. Lung sounds are positive for diminished breath sounds bilaterally. The findings and the impression was discussed with the patient. I attest to the documentation by the nurse practitioner. Time with Patient: Less than 30
[2018-01-08 15:20] LABS: Calcium 8.2 mg/dL (8.4-10.2)
[2018-01-08 15:33] LABS: HCT 40.3 % (39.0-53.0); HGB 12.7 gm/dL (13.0-17.5); Hypochromasia Slight; MCH 28.6 pg (25.0-35.0); MCHC 31.6 g/dL (31.0-37.0); MCV 90.6 fL (80.0-100.0); Mean Platelet Volume 10.2; Platelet Count 296 k/uL (150-450); RBC 4.44 m/uL (4.30-5.90); RDW 14.6 % (11.5-15.5)
--- NOTE | 2018-01-08 16:24 | XR ---
EXAMINATION TYPE: XR chest 2V DATE OF EXAM: 01/08/2018 COMPARISON: Prior chest x-ray 01/04/2018 HISTORY: COPD, shortness of breath TECHNIQUE: Frontal and lateral views of the chest are obtained on 3 images. FINDINGS: There is no pleural effusion or pneumothorax seen. The cardiac silhouette size is within normal limits. The osseous structures are intact. Prominent lung volumes are compatible with underl frandy emphysema, there are parenchymal bands, linear stranding as on prior exam compatible with underl frandy scarring. Pulmonary artery is prominent, correlate for pulmonary artery hypertension. Coronary a rtery calcifications present. IMPRESSION: Emphysema, pulmonary artery hypertension, coronary artery disease. Persistent interstiti al changes within the lungs.
[2018-01-08 16:42] LABS: Glucose,Whole Blood 133 mg/dL (75-99)
[2018-01-08] MEDS ORDERED: BARIUM SULFATE 450 ML ORAL.SUSP BOTTLE PO PRN (17:03)
[2018-01-08] MEDS: SODIUM CHLORIDE 0.9% 1,000 ML IV SCH (17:08)
[2018-01-08 17:09] LABS: Large Platelets Present; Lymphocytes # (M) 0.33 k/uL (1.0-4.8); Monocytes # (M) 1.32 k/uL (0-1.0); Myelocytes # (M) 0.33 k/uL (0); Myelocytes % 1 %; Neutrophils # (M) 31.35 k/uL (1.3-7.7); Neutrophils % (M) 95 %; Nucleated Red Blood Cells 0 /100 WBC (0-0); Total Cells Counted 200; Toxic Granulation Present
[2018-01-08] MEDS ORDERED: SODIUM CHLORIDE 0.9% 1,000 ML IV ONE (17:30)
[2018-01-08] MEDS: IOPAMIDOL-300 CONTRAST 30 ML VIAL (ORAL USE) PO PRN ×2 (17:36→18:24)
--- NOTE | 2018-01-08 18:43 | P.GSHP ---
History of Present Illness H&P Date: 01/08/18 Chief Complaint: Abdominal pain 8-year-old male with complaints of abdominal pain. Patient's LV C. diff positive. He has a leukocytosis of a white count 33,000. Patient states he has some mild diffuse pain. He is scheduled for a CAT scan later this evening. Past Medical History Past Medical History: Cancer, COPD, Hyperlipidemia, Pneumonia, Prostate Disorder Additional Past Medical History / Comment(s): Pt was admitted on 02/23/17 with bilateral pneumonia. Other hx: COPD, pneumonia with sepsis, 2007 prostate cancer treated by radiation therapy, skin cancer with removal, normocytic anemia , cervical DDD. 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 Past Anesthesia/Blood Transfusion Reactions: No Reported Reaction Past Psychological History: Anxiety, Depression Additional Psychological History / Comment(s): and lives with family home with his . Retired. No recent travel. no experience. No animal exposures Smoking Status: Former smoker Past Alcohol Use History: None Reported Past Drug Use History: None Reported - Past Family History Mother Family Medical History: No Reported History Father Family Medical History: Cancer Additional Family Medical History / Comment(s): spine CA which spread to bone CA Medications and Allergies Home Medications Medication Instructions Recorded Confirmed Type Aspirin 81 mg PO HS 06/02/14 01/04/18 History Fluticasone/Salmeterol [Advair 1 puff INHALATION RT-BID 06/02/14 01/04/18 History 500-50 Diskus] Tamsulosin [Flomax] 0.4 mg PO HS 06/02/14 01/04/18 History Simvastatin [Zocor] 10 mg PO HS 08/27/14 01/04/18 History guaiFENesin-DM 600/30MG [Mucinex 1 tab PO DAILY 02/13/16 01/04/18 History Dm] Calcium Carbonate [Calcium] 600 mg PO DAILY 02/24/17 01/04/18 History Melatonin 3 mg PO HS 02/24/17 01/04/18 History busPIRone HCl [Buspar] 5 mg PO BID 02/24/17 01/04/18 History Albuterol Nebulized [Ventolin 2.5 mg INHALATION RT-TID 04/01/17 01/04/18 History Nebulized] Citalopram Hydrobromide [CeleXA] 40 mg PO HS 04/24/17 01/04/18 History Furosemide [Lasix] 40 mg PO DAILY 04/24/17 01/04/18 History Multivit-Min/FA/Lycopen/Lutein 1 tab PO DAILY 04/24/17 01/04/18 History [Centrum Silver Tablet] Nystatin 100,000 Unit/ml Susp 4 ml PO QID 04/24/17 01/04/18 History [Mycostatin Oral Susp] ALPRAZolam [Xanax] 1 mg PO DAILY PRN 01/04/18 01/04/18 History Theophylline 12 Hour [Yevgeniy-Dur] 300 mg PO BID 01/04/18 01/04/18 History Tiotropium [place] [Spiriva] 1 cap INHALATION RT-DAILY 01/04/18 01/04/18 History diphenhydrAMINE [Benadryl] 25 mg PO HS PRN 01/04/18 01/04/18 History predniSONE See Taper PO DAILY 01/04/18 01/04/18 History Allergies Allergy/AdvReac Type Severity Reaction Status Date / Time No Known Allergies Allergy Verified 01/04/18 12:07 Surgical - Exam Vital Signs Temp Pulse Resp BP Pulse Ox 100.9 F H 129 H 24 131/65 94 L 01/04/18 10:31 01/04/18 10:31 01/04/18 10:31 01/04/18 10:31 01/04/18 10:31 - General well developed, no distress - Eyes PERRL - ENT normal pinna - Neck no masses - Respiratory normal expansion - Cardiovascular Rhythm: regular - Abdomen Mild tenderness throughout. There is no rebound guarding. Abdomen: soft Results - Labs 01/08/18 14:02 01/08/18 14:02 Abnormal Lab Results - Last 24 Hours (Table) 01/07/18 01/08/18 01/08/18 Range/Units 21:16 05:56 11:43 WBC (3.8-10.6) k/uL Hgb (13.0-17.5) gm/dL Neutrophils # (Manual) (1.3-7.7) k/uL Lymphocytes # (Manual) (1.0-4.8) k/uL Monocytes # (Manual) (0-1.0) k/uL Myelocytes # (Manual) (0) k/uL Sodium (137-145) mmol/L BUN (9-20) mg/dL Glucose (74-99) mg/dL POC Glucose (mg/dL) 170 H 135 H 137 H (75-99) mg/dL Plasma Lactic Acid Giovanni (0.7-2.0) mmol/L Calcium (8.4-10.2) mg/dL 01/08/18 01/08/18 01/08/18 Range/Units 14:02 14:02 14:02 WBC 33.0 H (3.8-10.6) k/uL Hgb 12.7 L (13.0-17.5) gm/dL Neutrophils # (Manual) 31.35 H (1.3-7.7) k/uL Lymphocytes # (Manual) 0.33 L (1.0-4.8) k/uL Monocytes # (Manual) 1.32 H (0-1.0) k/uL Myelocytes # (Manual) 0.33 H (0) k/uL Sodium 135 L (137-145) mmol/L BUN 45 H (9-20) mg/dL Glucose 135 H (74-99) mg/dL POC Glucose (mg/dL) (75-99) mg/dL Plasma Lactic Acid Giovanni 3.7 H* (0.7-2.0) mmol/L Calcium 8.2 L (8.4-10.2) mg/dL 01/08/18 Range/Units 16:40 WBC (3.8-10.6) k/uL Hgb (13.0-17.5) gm/dL Neutrophils # (Manual) (1.3-7.7) k/uL Lymphocytes # (Manual) (1.0-4.8) k/uL Monocytes # (Manual) (0-1.0) k/uL Myelocytes # (Manual) (0) k/uL Sodium (137-145) mmol/L BUN (9-20) mg/dL Glucose (74-99) mg/dL POC Glucose (mg/dL) 133 H (75-99) mg/dL Plasma Lactic Acid Giovanni (0.7-2.0) mmol/L Calcium (8.4-10.2) mg/dL Microbiology - Last 24 Hours (Table) 01/06/18 16:54 Gram Stain - Preliminary Sputum Sputum Culture - Preliminary Gram Neg Bacilli [place] albicans 01/05/18 18:40 Stool Culture - Preliminary Stool Diabetes panel 01/06/18 01/08/18 Range/Units 06:10 14:02 Sodium 135 L (137-145) mmol/L Potassium 5.0 (3.5-5.1) mmol/L Chloride 102 (98-107) mmol/L Carbon Dioxide 28 (22-30) mmol/L BUN 45 H (9-20) mg/dL Creatinine 1.12 (0.66-1.25) mg/dL Glucose 135 H (74-99) mg/dL Hemoglobin A1c 5.4 (4.0-6.0) % Calcium 8.2 L (8.4-10.2) mg/dL Calcium panel 01/08/18 Range/Units 14:02 Calcium 8.2 L (8.4-10.2) mg/dL Pituitary panel 01/08/18 Range/Units 14:02 Sodium 135 L (137-145) mmol/L Potassium 5.0 (3.5-5.1) mmol/L Chloride 102 (98-107) mmol/L Carbon Dioxide 28 (22-30) mmol/L BUN 45 H (9-20) mg/dL Creatinine 1.12 (0.66-1.25) mg/dL Glucose 135 H (74-99) mg/dL Calcium 8.2 L (8.4-10.2) mg/dL Adrenal panel 01/08/18 Range/Units 14:02 Sodium 135 L (137-145) mmol/L Potassium 5.0 (3.5-5.1) mmol/L Chloride 102 (98-107) mmol/L Carbon Dioxide 28 (22-30) mmol/L BUN 45 H (9-20) mg/dL Creatinine 1.12 (0.66-1.25) mg/dL Glucose 135 H (74-99) mg/dL Calcium 8.2 L (8.4-10.2) mg/dL Assessment and Plan Assessment: Leukocytosis C. diff colitis.. Patient will undergo computed tomography scan. He'll be closely watched. He'll continue IV antibiotics and fluid support.
[2018-01-08 20:46] LABS: Glucose,Whole Blood 150 mg/dL (75-99)
--- NOTE | 2018-01-08 20:58 | CT ---
EXAMINATION TYPE: CT abdomen pelvis wo con DATE OF EXAM: 01/08/2018 COMPARISON: 01/04/2018 HISTORY: abdomen pain CT DLP: 593.2 mGycm Automated exposure control for dose reduction was used. TECHNIQUE: Helical acquisition of images was performed from the lung bases through the pelvis. FINDINGS: There is coarse reticular patchy infiltrate in the lower lung pichardo consistent with significant pulm onary fibrosis. There is abdominal ascites. There is no pleural effusion. Spleen shows small calcified granulomata. T here is no evidence of a pancreatic mass. Liver shows no focal defect. Gallbladder is contracted. The re is probably a 7 mm calcified gallstone. There is no adrenal mass. Kidneys have normal size and contour. There is no hydronephrosis. There is no retroperitoneal adenopathy. Abdominal aorta is atheromatous. There are implants in the prostate. B ladder distends smoothly. There is no inguinal hernia. There is retained fecal material in the right colon and transverse colon. There is no mesenteric mary ellen a or adenopathy. There is no evidence of a bowel obstruction. Lumbar spine is intact. There is narrow ing at L5-S1 disc space. IMPRESSION: Abdominal ascites. Constipation. Extensive fibrotic changes at the lung bases. Old granulomatous dise ase.
[2018-01-08] MEDS ORDERED: CHOLESTYRAMINE (WITH SUGAR) 4 GM PACKET PO SCH (21:00)
[2018-01-08] MEDS: TAMSULOSIN 0.4 MG CAP.ER.24H PO SCH (21:24)
[2018-01-08] MEDS: ASPIRIN 81 MG PO SCH (21:24)
[2018-01-08] MEDS: CITALOPRAM HYDROBROMIDE 20 MG TAB PO SCH (21:24)
[2018-01-08] MEDS: ATORVASTATIN 10 MG TAB PO SCH (21:24)
[2018-01-08] MEDS: ALPRAZolam 1 MG TAB PO PRN (21:24)
--- NOTE | 2018-01-08 22:07 | P.PN ---
Subjective Progress Note Date: 01/08/18 Progress note being dictated for Dr. Yu Interval history:Patient is a 82-year-old male with a known history of COPD, hyperlipidemia and history of Pseudomonas pneumonia diagnosed some time in April 2017 and is currently maintained on inhaled tobramycin every other month as per ID recommendations came to ER with complaints of abdominal pain and diarrhea. Patient did have diarrhea for the past 2 days and he did take Imodium at home. Patient does have nausea. No episodes of vomiting. 3-4 loose stools yesterday. Patient denied abdominal pain last night which has been getting worse and made him come to ER. Denied any hematemesis or melena. Denied any gross blood in the stool. Patient does have fever with T-max 100.9 on admission. Patient was tachycardic on admission. Patient was also having difficulty breathing while in the ER. Does have cough with whitish to light yellow sputum production. No change in color recently. Patient did see his doctor 2 days ago and was started on theophylline and steroids. Patient does have COPD oxygen dependent file it with another cannula. CT of the abdomen pelvis showed in the ER showed gross thickening of the colon including sigmoid colon and descending colon .. Consistent with infectious rather than intermittently colitis. Emphysematous changes as well as pulmonary fibrosis. Cholelithiasis and evidence of old granulomatous disease. Chest x-ray showed improved aeration and pulmonary fibrosis. EKG showed sinus tachycardia WBC 26.3 Lactic acid 3.7 Patient was started on antibiotics in the form of Levaquin and Flagyl. C. diff toxin was sent. 01/05/2018 Patient is still having abdominal pain but much improved. Patient did have small bowel movement and C. diff toxin was sent is came out positive. Otherwise blood cultures showed coagulase-negative staph aureus. Vancomycin has been discontinued. Discontinue Levaquin as well. Patient will be continued on Flagyl 3 times a day. Patient is being continued on breathing treatments and IV steroids. Lactic acidosis resolved. Patient will be continued on gentle hydration. 01/06/2018 diarrhea improving. Breathing better, occasional productive cough - sputum culture pending .Exertional shortness of breath. Urine culture pending Maintained on gentle IV fluid hydration, Flagyl. Afebrile, WBC 22.1. Creatinine 0.92 01/07/2018 maintained on oral vancomycin, IV Flagyl for C. diff colitis .diarrhea improving, 1 episode today, so far. Continues on nebulized bronchodilators, IV steroids. Breathing improving, maintaining O2 sats in the low 90s on 4 L nasal cannula. Afebrile. 01/08/2018 abdominal pain last night, subsided. Diarrhea frequency lessening, but increased volume/size. Afebrile, WBC trending up, currently 33. Renal function mildly worsened. Maintaining O2 sats in the high 90s on 5 L nasal cannula O2. Review of systems: CONSTITUTIONAL: positive malaise and fatigue. HEENT: No recent visual problems or hearing problems. Denied any sore throat. CARDIOVASCULAR: No chest pain, orthopnea, PND, no palpitations, no syncope. PULMONARY: improving shortness of breath, no cough, no hemoptysis. GASTROINTESTINAL: diarrhea, no nausea, no vomiting, positive abdominal cramping. Normoactive bowel sounds. NEUROLOGICAL: No headaches, generalized weakness HEMATOLOGICAL: Denies any bleeding or petechiae. GENITOURINARY: Denies any burning micturition, frequency, or urgency. MUSCULOSKELETAL/RHEUMATOLOGICAL: Denies any joint pain, swelling, or any muscle pain. ENDOCRINE: Denies any polyuria or polydipsia. PSYCHIATRIC: positive anxiety, no depression The rest of the 14 point review of systems is negative Active Medications Generic Name Dose Route Start Last Admin Trade Name Freq PRN Reason Stop Dose Admin Albuterol/Ipratropium 3 ml 01/04/18 12:26 Duoneb 0.5 Mg-3 Mg/3 Ml Soln INHALATION RT-Q4H PRN Shortness Of Breath Or Wheezing Albuterol/Ipratropium 3 ml 01/06/18 16:00 01/08/18 21:47 Duoneb 0.5 Mg-3 Mg/3 Ml Soln INHALATION 3 ml RT-Q4H JANETTE Administration Alprazolam 1 mg 01/04/18 16:14 01/08/18 21:24 Xanax PO 1 mg DAILY PRN Administration Anxiety Aspirin 81 mg 01/04/18 21:00 01/08/18 21:24 Aspirin PO 81 mg HS JANETTE Administration Atorvastatin Calcium 10 mg 01/04/18 21:00 01/08/18 21:24 Lipitor PO 10 mg HS JANETTE Administration Budesonide 1 mg 01/06/18 20:00 01/08/18 21:47 Pulmicort INHALATION 1 mg RT-BID JANETTE Administration Buspirone HCl 5 mg 01/04/18 21:00 01/08/18 21:24 Buspar PO 5 mg BID JANETTE Administration Mike Syrup 5 ml 01/06/18 14:00 01/08/18 17:18 Mike Syrup PO 5 ml Q6HR JANETTE Administration Cholestyramine Resin 4 gm 01/08/18 22:00 01/08/18 21:25 Questran PO 4 gm QID JANETTE Administration Citalopram Hydrobromide 40 mg 01/04/18 21:00 01/08/18 21:24 Celexa PO 40 mg HS JANETTE Administration Formoterol Fumarate 20 mcg 01/06/18 20:00 01/08/18 21:47 Perforomist INHALATION 20 mcg RT-BID JANETTE Administration Sodium Chloride 1,000 mls @ 50 mls/hr 01/04/18 12:30 01/08/18 17:08 Saline 0.9% IV 50 mls/hr .Q20H JANETTE Administration Insulin Aspart 0 unit 01/04/18 21:00 01/08/18 21:25 Novolog SQ 2 unit ACHS JANETTE Administration Protocol Lactobacillus Acidoph/Bulgaricus 1 each 01/07/18 21:15 01/08/18 21:25 Lactinex PO 1 each BID JANETTE Administration Melatonin 3 mg 01/04/18 21:00 01/07/18 21:34 Melatonin PO Not Given HS JANETTE Methylprednisolone Sodium Succinate 20 mg 01/09/18 02:00 Solu-Medrol IV Q8H JANETTE Multivitamins 1 each 01/05/18 12:00 01/08/18 11:57 Theragran PO 1 each 1200 JANETTE Administration Pantoprazole Sodium 40 mg 01/08/18 03:22 01/08/18 21:24 Protonix IVP 40 mg BID JANETTE Administration Tamsulosin HCl 0.4 mg 01/07/18 21:15 01/08/18 21:24 Flomax PO 0.4 mg HS JANETTE Administration Vancomycin HCl 250 mg 01/08/18 19:00 01/08/18 18:03 Vancomycin Oral Solution PO Not Given Q6HR JANETTE Objective - Vital Signs Vital signs: Vital Signs Temp 97.7 F 01/08/18 15:00 Pulse 90 01/08/18 16:38 Resp 19 01/08/18 15:00 BP 145/90 01/08/18 15:00 Pulse Ox 96 01/08/18 16:26 Intake & Output 01/08/18 01/08/18 01/09/18 06:59 18:59 06:59 Intake Total 1060 720 Output Total 150 350 Balance 910 370 Weight 79.3 kg Intake: IV 700 Sodium Chloride 0.9% 1, 700 000 ml @ 50 mls/hr IV . Q20H [facility] Rx#:[id number] Oral 360 720 Output: Urine 150 350 Other: Voiding Method Toilet Toilet Urinal Urinal # Voids 1 1 # Bowel Movements 2 2 - Exam PHYSICAL EXAMINATION: Patient is sitting up in the bed comfortably, no acute distress, awake alert and oriented.. HEENT: Normocephalic. Neck is supple. Pupils reactive. Nostrils clear. Oral mucosa moist Neck reveals no JVD, carotid bruits, or thyromegaly. CHEST EXAMINATION: Diminished with Bilateral expiratory wheezes, no crackles and minimal rhonchi. CARDIAC: Normal S1, S2 with no gallops. No murmurs ABDOMEN: Soft. Distended. Mild left lower quadrant tenderness. Bowel sounds normal. No organomegaly. Extremities: reveal no edema. No clubbing or cyanosis Neurologically awake, alert, oriented x3 with well-coordinated movements. No focal deficits noted Skin: No rash or skin lesions. Musculoskeletal: No joint swelling or deformity. Normal range of motion. Microbiology 01/05/18 18:40 Stool Stool Culture - Preliminary 01/06/18 16:54 Sputum Gram Stain - Preliminary 01/06/18 16:54 Sputum Sputum Culture - Preliminary 01/04/18 10:49 Blood Blood Culture Gram Stain - Final 01/04/18 10:49 Blood Blood Culture - Final Coagulase Negative Staph 01/04/18 12:55 Urine,Voided Urine Culture - Final 01/04/18 10:50 Blood Blood Culture - Final - Labs CBC & Chem 7: 01/08/18 14:02 01/08/18 14:02 Labs: Abnormal Lab Results - Last 24 Hours (Table) 01/07/18 01/08/18 01/08/18 Range/Units 21:16 05:56 11:43 WBC (3.8-10.6) k/uL Hgb (13.0-17.5) gm/dL Neutrophils # (Manual) (1.3-7.7) k/uL Lymphocytes # (Manual) (1.0-4.8) k/uL Monocytes # (Manual) (0-1.0) k/uL Myelocytes # (Manual) (0) k/uL Sodium (137-145) mmol/L BUN (9-20) mg/dL Glucose (74-99) mg/dL POC Glucose (mg/dL) 170 H 135 H 137 H (75-99) mg/dL Plasma Lactic Acid Giovanni (0.7-2.0) mmol/L Calcium (8.4-10.2) mg/dL 01/08/18 01/08/18 01/08/18 Range/Units 14:02 14:02 14:02 WBC 33.0 H (3.8-10.6) k/uL Hgb 12.7 L (13.0-17.5) gm/dL Neutrophils # (Manual) 31.35 H (1.3-7.7) k/uL Lymphocytes # (Manual) 0.33 L (1.0-4.8) k/uL Monocytes # (Manual) 1.32 H (0-1.0) k/uL Myelocytes # (Manual) 0.33 H (0) k/uL Sodium 135 L (137-145) mmol/L BUN 45 H (9-20) mg/dL Glucose 135 H (74-99) mg/dL POC Glucose (mg/dL) (75-99) mg/dL Plasma Lactic Acid Giovanni 3.7 H* (0.7-2.0) mmol/L Calcium 8.2 L (8.4-10.2) mg/dL 01/08/18 Range/Units 16:40 WBC (3.8-10.6) k/uL Hgb (13.0-17.5) gm/dL Neutrophils # (Manual) (1.3-7.7) k/uL Lymphocytes # (Manual) (1.0-4.8) k/uL Monocytes # (Manual) (0-1.0) k/uL Myelocytes # (Manual) (0) k/uL Sodium (137-145) mmol/L BUN (9-20) mg/dL Glucose (74-99) mg/dL POC Glucose (mg/dL) 133 H (75-99) mg/dL Plasma Lactic Acid Giovanni (0.7-2.0) mmol/L Calcium (8.4-10.2) mg/dL Microbiology - Last 24 Hours (Table) 01/06/18 16:54 Gram Stain - Preliminary Sputum Sputum Culture - Preliminary Gram Neg Bacilli [place] albicans 01/05/18 18:40 Stool Culture - Preliminary Stool Assessment and Plan Assessment: Sepsis secondary to C. diff colitis. Diarrhea persists Lactic acidosis secondary to infection and volume depletion. Severe COPD with exacerbation and chronic hypoxic respiratory failure Recent history of Pseudomonas pneumonia and failed antibiotic therapy. Pulmonary fibrosis History of prostate cancer with radiation in 2007 and seed implants History of MRSA History of skin cancer remote from right forearm Hyperlipidemia Anxiety/depression Previous history of smoking DVT prophylaxis Plan: Continue on current medication regime ,monitoring and symptomatic treatment. Surgery consulted. CT of abdomen and pelvis with oral contrast only ordered.Questran adjusted to 4 times a day between meals -not with food. If diarrhea persists, may consider nothing by mouth. IV steroids decreased .discussed plan with RN to maintain diarrhea chart at the bedside. F/U Portable chest x-ray. Obtain lactic acid level.Repeat Bc X 2. IV antibiotics as per infectious disease. Maintain nebulized bronchodilators, IV steroids. Maintain gentle IV fluid hydration, Flagyl. Reconfirm [place], low fiber diet, lactose- free with dietary.Increase ambulation, as tolerated. Further sepsis workup in progress, maintain on selective care unit.Prognosis guarded given multiple complex medical issues. The impression and plan of care has been dictated as directed. : I performed a history and examination of this patient, discussed the same with the dictator. I agree with the dictator's note ,documented as a scribe. Any additional findings or plans will be noted.
[2018-01-09] MEDS: CHERRY FLAVOR 60 ML BOTTLE PO SCH ×4 (01:32→15:25)
[2018-01-09] MEDS: VANCOMYCIN ORAL SOLUTION 250 MG/5 ML BOTTLE PO SCH ×3 (01:34→11:46)
[2018-01-09] MEDS: methylPREDNISolone SOD SUCCI 40 MG/ML 1 ML VIAL IV SCH ×3 (02:30→19:06)
[2018-01-09] MEDS: IPRATROPIUM-ALBUTEROL 3 ML NEB INHALATION SCH ×6 (03:07→20:31)
[2018-01-09 06:04] LABS: HCT 42.2 % (39.0-53.0); HGB 12.9 gm/dL (13.0-17.5); Hypochromasia Slight; MCHC 30.6 g/dL (31.0-37.0); MCV 91.5 fL (80.0-100.0); Mean Platelet Volume 6.7; Platelet Count 324 k/uL (150-450); RBC 4.62 m/uL (4.30-5.90); RDW 14.4 % (11.5-15.5); WBC 31.1 k/uL (3.8-10.6)
[2018-01-09 06:12] LABS: Anion Gap 4 mmol/L; Blood Urea Nitrogen 39 mg/dL (9-20); Carbon Dioxide 27 mmol/L (22-30); Chloride 103 mmol/L (98-107); Glucose 129 mg/dL (74-99); Potassium 5.5 mmol/L (3.5-5.1); Sodium 134 mmol/L (137-145)
[2018-01-09 06:27] LABS: Band Neutrophils % 2 %; Lymphocytes # (M) 1.56 k/uL (1.0-4.8); Monocytes # (M) 0.62 k/uL (0-1.0); Neutrophils % (M) 91 %; Nucleated Red Blood Cells 0 /100 WBC (0-0); Total Cells Counted 100; Toxic Vacuolation Present
[2018-01-09 06:31] LABS: Glucose,Whole Blood 122 mg/dL (75-99)
[2018-01-09] MEDS: MELATONIN 3 MG TABLET PO SCH ×2 (06:46→22:41)
[2018-01-09] MEDS: INSULIN ASPART 100 UNIT/ML 1 ML 10 ML VIAL SQ SCH ×4 (07:26→22:42)
[2018-01-09] MEDS: FORMOTEROL FUMARATE 20 MCG/2 ML NEBU INHALATION SCH ×2 (07:45→20:30)
[2018-01-09] MEDS: BUDESONIDE 1 MG/2 ML NEBU INHALATION SCH ×2 (07:45→20:30)
[2018-01-09] MEDS: CHOLESTYRAMINE (WITH SUGAR) 4 GM PACKET PO SCH ×4 (09:23→22:41)
[2018-01-09] MEDS: PANTOPRAZOLE 40 MG/10 ML VIAL IVP SCH ×2 (09:23→22:41)
[2018-01-09] MEDS: busPIRone HCl 5 MG TAB PO SCH ×2 (09:23→22:36)
[2018-01-09] MEDS: LACTOBACILLUS ACIDOPH & BULGAR 1 EACH PACKET PO SCH ×2 (09:23→22:41)
--- NOTE | 2018-01-09 10:42 | P.PN ---
Progress Note - Text Progress Note Date: 01/09/18 The patient resting comfortably in his bed. He states he feels slightly better. He still had some diarrhea. On exam his vital signs are stable. His abdomen soft. There is minimal distention. Patient's leukocytosis has improved slightly. It is 31,000 today. It was 33, 000 yesterday. He is currently being treated for C. diff colitis. We will follow with you.
[2018-01-09] MEDS: MULTIVITAMINS, THERA 1 EACH TAB PO SCH (11:46)
[2018-01-09 12:08] LABS: Glucose,Whole Blood 109 mg/dL (75-99)
[2018-01-09] MEDS: SODIUM CHLORIDE 0.9% 1,000 ML IV SCH ×2 (15:25→19:06)
[2018-01-09] MEDS: FIDAXOMICIN 200 MG TABLET PO SCH (15:25)
[2018-01-09 17:10] LABS: Glucose,Whole Blood 113 mg/dL (75-99)
[2018-01-09] MEDS: NYSTATIN 100,000 UNIT/ML SUSP 500,000 UNIT/5 ML CUP PO SCH ×2 (19:06→22:40)
[2018-01-09 21:34] LABS: Glucose,Whole Blood 118 mg/dL (75-99)
[2018-01-09] MEDS: ATORVASTATIN 10 MG TAB PO SCH (22:35)
[2018-01-09] MEDS: ALPRAZolam 1 MG TAB PO PRN (22:35)
[2018-01-09] MEDS: TAMSULOSIN 0.4 MG CAP.ER.24H PO SCH (22:35)
[2018-01-09] MEDS: CITALOPRAM HYDROBROMIDE 20 MG TAB PO SCH (22:36)
[2018-01-09] MEDS: ASPIRIN 81 MG PO SCH (22:36)
[2018-01-10] MEDS: IPRATROPIUM-ALBUTEROL 3 ML NEB INHALATION SCH ×6 (00:49→20:37)
[2018-01-10] MEDS: methylPREDNISolone SOD SUCCI 40 MG/ML 1 ML VIAL IV SCH ×3 (02:30→17:50)
[2018-01-10 06:23] LABS: Glucose,Whole Blood 114 mg/dL (75-99)
--- NOTE | 2018-01-10 06:25 | PN ---
PROGRESS NOTE DATE OF SERVICE: 01/09/2018 This 82-year-old gentleman who was admitted with acute C. difficile colitis, complaining abdominal distention. Patient still has diarrhea. The patient is on vancomycin. White count is also elevated. Infectious Disease is following the patient closely as well as Surgery. The repeat CAT scan showed evidence of some ascites, but some constipation, extensive fibrotic changes also. Dr. Villalpando is following the patient closely. PAST MEDICAL HISTORY: Reviewed. REVIEW OF SYSTEMS: CARDIOVASCULAR SYSTEM: No angina. RESPIRATORY SYSTEM: No cough. GI: As mentioned earlier. : No dysuria. NERVOUS SYSTEM: No numbness or weakness. CURRENT MEDICATIONS: Current medications are reviewed and include: 1. DuoNeb q.i.d. and p.r.n. 2. Xanax 1 mg p.o. daily. 3. Aspirin 81 mg q.h.s. 4. Lipitor 10 mg q.h.s. 5. Pulmicort 1 mg b.i.d. 6. BuSpar 5 mg p.o. b.i.d. 7. Mike syrup. 8. Questran 4 mg p.o. q.i.d. 9. Celexa 40 mg q.h.s. 10.Dificid 200 mg p.o. b.i.d. 11.Perforomist. 12.Lactinex. 13.Solu-Medrol 20 IV q.8. 14.Protonix. 15.Flomax. PHYSICAL EXAM: Patient is alert and oriented x3. Pulse 110, blood pressure 126/68, respiration 19, temperature 97, pulse ox 95% on 5 L. HEENT: Conjunctivae normal. Oral mucosa moist. Neck is no jugular venous distention. No lymph node enlargement. CARDIOVASCULAR: S1 and S2 muffled. RESPIRATORY: Breath sounds diminished at the bases. Bilateral scattered rhonchi. ABDOMEN: Soft. Mild diffuse distention. Mild diffuse discomfort on palpation. No guarding. No rigidity. No mass palpable. Bowel sounds diminished. LEGS: No edema. No cyanosis. NERVOUS SYSTEM: Higher function as mentioned earlier. Moves all 4 limbs. No focal motor or sensory deficit. LYMPHATICS: No lymphadenopathy of the neck, axillae or groin. SKIN: No ulcer, rash or bleeding. LABS: WBC 31.1, otherwise, hemoglobin is 12.9. The sodium is 134, potassium 5.5. ASSESSMENT: 1. Acute Clostridium difficile colitis with sepsis with persistent diarrhea. 2. Lactic acidosis secondary to infection and volume depletion. 3. Chronic obstructive pulmonary disease acute exacerbation with acute on chronic hypoxic respiratory failure. 4. Recent history of Pseudomonas pneumonia, failed antibiotic treatment. 5. Pulmonary fibrosis. 6. History of prostate cancer with radiation in 2018 with seed implants. 7. History of methicillin-resistant Staphylococcus aureus. 8. History of skin cancer remotely in the right forearm. 9. Ascites. 10.Hyperlipidemia. 11.Anxiety, depression. 12.Previous history of nicotine dependence. 13.Deep venous thrombosis prophylaxis. RECOMMENDATIONS AND DISCUSSION: Recommend to continue current medications. Continue with monitoring and symptomatic treatment with antibiotics. Otherwise, lactic acid is elevated but seems to be improving. Antibiotics changed by Dr. Raymond. Guarded prognosis because of multiple complex medical issues. Further recommendations to follow. MMSANTIAGOL / LATIAN: [id number] /
[2018-01-10] MEDS: FIDAXOMICIN 200 MG TABLET PO SCH ×3 (06:43→23:06)
[2018-01-10] MEDS: CHERRY FLAVOR 60 ML BOTTLE PO SCH ×4 (06:45→16:48)
[2018-01-10 07:02] LABS: Anion Gap 6 mmol/L; Blood Urea Nitrogen 34 mg/dL (9-20); Calcium 7.6 mg/dL (8.4-10.2); Carbon Dioxide 24 mmol/L (22-30); Chloride 104 mmol/L (98-107); Glucose 116 mg/dL (74-99); Potassium 5.1 mmol/L (3.5-5.1); Sodium 134 mmol/L (137-145)
[2018-01-10 07:18] LABS: Basophils % (A) 0 %; Eosinophils # (A) 0.1 k/uL (0-0.7); Eosinophils % (A) 0 %; HCT 42.7 % (39.0-53.0); HGB 13.6 gm/dL (13.0-17.5); Hypochromasia Slight; Lymphocytes # (A) 0.6 k/uL (1.0-4.8); Lymphocytes % (A) 2 %; MCH 28.9 pg (25.0-35.0); MCHC 31.8 g/dL (31.0-37.0); MCV 90.9 fL (80.0-100.0); Mean Platelet Volume 7.2; Monocytes # (A) 0.8 k/uL (0-1.0); Monocytes % (A) 3 %; Neutrophils # (A) 23.9 k/uL (1.3-7.7); Neutrophils % (A) 94 %; Platelet Count 238 k/uL (150-450); RBC 4.69 m/uL (4.30-5.90); RDW 14.5 % (11.5-15.5); WBC 25.5 k/uL (3.8-10.6)
[2018-01-10] MEDS: INSULIN ASPART 100 UNIT/ML 1 ML 10 ML VIAL SQ SCH ×4 (07:31→22:58)
[2018-01-10] MEDS: FORMOTEROL FUMARATE 20 MCG/2 ML NEBU INHALATION SCH ×2 (07:44→20:37)
[2018-01-10] MEDS: BUDESONIDE 1 MG/2 ML NEBU INHALATION SCH ×2 (07:44→20:36)
--- NOTE | 2018-01-10 09:24 | P.PN ---
Progress Note - Text Progress Note Date: 01/10/18 The patient is resting comfortably in his bed. He has complaints of crampy abdominal pain and persistent diarrhea. He had 8-10 bowel movements last night. On exam is lesser stable. His abdomen is soft. There is some minimal tenderness. There is no rebound or guarding. His leukocytosis has improved. He is currently 25,000. C. diff colitis. Patient continue receive IV antibiotic therapy.
[2018-01-10] MEDS: CHOLESTYRAMINE (WITH SUGAR) 4 GM PACKET PO SCH ×4 (09:31→22:59)
[2018-01-10] MEDS: NYSTATIN 100,000 UNIT/ML SUSP 500,000 UNIT/5 ML CUP PO SCH ×4 (09:32→22:59)
[2018-01-10] MEDS: LACTOBACILLUS ACIDOPH & BULGAR 1 EACH PACKET PO SCH ×2 (09:32→22:59)
[2018-01-10] MEDS: MULTIVITAMINS, THERA 1 EACH TAB PO SCH (09:33)
[2018-01-10] MEDS: busPIRone HCl 5 MG TAB PO SCH ×2 (09:33→22:59)
--- NOTE | 2018-01-10 10:37 | PN ---
PROGRESS NOTE DATE OF SERVICE: 01/09/2018 REASON FOR FOLLOWUP: Elevated white count and lactic acid and to re-evaluate the antibiotic as per request of the medical services. INTERVAL HISTORY: Patient is an 82-year-old male who presented to the ER at [facility] on 12/27/2017 with chief complaints of a fever. The patient at the time also had significant symptom of diarrhea with multiple loose stools. The patient did have stool for C. difficile, which came back positive. The patient did have white count. However, for the last few days his white count has been showing an upward trend which was 33,000 yesterday. I was asked to re-evaluate the patient and because of persistent elevated white count as well as lactic acid. The patient's fever has resolved. However, the patient continued to have diarrhea. He had about 3 episodes last night and 3 since morning. It is slightly firming up, any watery stools. Minimal lower abdominal pain 2 to 3 out of 10 and no radiation. The patient denies having nausea or vomiting. The patient denies any significant chest pain. His breathing is baseline and did have minimal cough, bringing up some sputum, which is baseline for him as well with no worsening. No nausea, no vomiting and no further fever has been noticed. The patient has been treated with oral vancomycin and Questran the dose was cut down to twice a day to prevent interaction with the oral vancomycin. REVIEW OF SYSTEMS: Positive points have been mentioned in HPI. Rest of systems has been negative. His past medical and surgical history reviewed and unchanged. Medications reviewed. PHYSICAL EXAMINATION: On examination, blood pressure 132/68 with a pulse of 110, temperature 97. He is 95% on 5 L nasal cannula. General description is an elderly male lying in bed in no distress. HEENT examination shows pallor, no scleral icterus. Oral mucous membrane is dry. No pharyngeal erythema or thrush. NECK: Trachea central. No thyromegaly. LUNGS: Unlabored breathing, clear to auscultation anteriorly. No wheeze or crackle. HEART: S1, S2. Regular rate and rhythm. ABDOMEN: Soft, no tenderness. No guarding or rigidity. EXTREMITIES: No edema of feet. SKIN EXAMINATION: No rash or mass palpable. NEUROLOGICAL: Patient is awake, alert, oriented x2. Mood and affect normal. LABS: Hemoglobin is 12.9, white count 31.1 with a BUN of 39, creatinine 0.89. Lactic acid 4.1 is down to 2.6. Stool for C. difficile has been positive. Blood culture with coagulase-negative staph. Sputum with multidrug resistant Pseudomonas aeruginosa, sensitive only to meropenem and Zosyn. The patient did have a chest x-ray which shows emphysema and pulmonary artery hypertension, but no evidence of any consolidation. DIAGNOSTIC IMPRESSION AND PLAN: 1. Patient presented to the hospital with fever in a patient who did have also significant watery diarrhea and has been diagnosed with an acute Clostridium difficile colitis. The patient apparently continued to have diarrhea despite being on oral vancomycin for 5 days now in addition to Questran with question of possible vancomycin failure. The patient also had elevated lactic acid. Some of it could be related to underlying chronic obstructive pulmonary disease exacerbation rather than worsening infection. 2. Patient noted to have a positive sputum culture with Pseudomonas aeruginosa. Chest x-ray did not show any significant consolidation in a patient currently baseline with no worsening more likely representing a possible colonization rather than acute Pseudomonas pneumonia. PLAN: 1. We will discontinue the vancomycin. 2. Will start the patient Dificid 200 mg twice a day. 3. We will closely monitor the patient and adjust the medications further if needed. Continue with supportive care. MMSANTIAGOL / LATIAN: [id number] /
[2018-01-10 12:29] LABS: Glucose,Whole Blood 116 mg/dL (75-99)
[2018-01-10 16:46] LABS: Glucose,Whole Blood 121 mg/dL (75-99)
[2018-01-10 17:37] LABS: Albumin 2.1 g/dL (3.5-5.0); Magnesium 2.2 mg/dL (1.6-2.3); Phosphorus 3.7 mg/dL (2.5-4.5)
[2018-01-10] MEDS ORDERED: MVI, ADULT NO.4 WITH VIT K 10 ML, TRACE (CONC-1ML/DOSE) 1 ML in AMINO ACID 4.25%-D10W+L... IV SCH ×3 (19:30)
--- NOTE | 2018-01-10 19:55 | PN ---
PROGRESS NOTE DATE OF SERVICE: 01/10/2018 This 82-year-old gentleman who was admitted with acute C difficile colitis also had features of sepsis. Patient also had lactic acidosis. Patient also had continued diarrhea, more than 8 times loose stools at this time. The patient was also complaining of abdominal discomfort. Ascites was also noted. Lactic acid was also elevated. The patient is multiple consultants are following the patient closely. CT scan of the abdomen and pelvis was noted. The most recent chest x-ray done on 01/08, which was personally reviewed by me, showed some diffuse patchy opacities also. Past medical history reviewed. REVIEW OF SYSTEMS: CARDIOVASCULAR SYSTEM: No angina, palpitations. RESPIRATORY SYSTEM: As mentioned earlier. GI: As mentioned earlier. : No dysuria or retention. NERVOUS SYSTEM: Diffuse weakness. CURRENT MEDICATIONS: Reviewed. They include: 1. DuoNeb q.i.d. and p.r.n. 2. Xanax 1 mg p.o. daily. 3. Aspirin 81 mg at bedtime. 4. Lipitor 10 mg. 5. Pulmicort 1 mg b.i.d. 6. BuSpar 5 mg b.i.d. 7. Mike syrup. 8. Questran 4 grams p.o. q.i.d. PHYSICAL EXAMINATION: Patient is alert, oriented x3. Pulse is 109, blood pressure 128/69, respiration 18, temperature 97.6, pulse ox 98% on 5 L. HEENT: Conjunctivae normal. Oral mucosa moist. NECK: No jugular venous distention. No carotid bruit. No lymph node enlargement. CARDIOVASCULAR SYSTEM: S1, S2 muffled. RESPIRATORY SYSTEM: Breath sounds diminished at the bases. A few scattered rhonchi and crackles. ABDOMEN: Soft. Mild diffuse distention. No guarding. No rigidity. No mass palpable. LEGS: Bilateral leg edema. NERVOUS SYSTEM: No focal deficit. LABS: WBC 25.5, hemoglobin 13.3, sodium 134. ASSESSMENT: 1. Acute Clostridium difficile colitis with sepsis with persistent diarrhea. 2. Lactic acidosis secondary to infection and volume depletion. 3. Chronic obstructive pulmonary disease, acute exacerbation, with acute on chronic hypoxic respiratory failure. 4. Recent history of pseudomonas pneumonia, failed antibiotic treatment. 5. Pulmonary fibrosis. 6. History of prostate cancer with radiation in 2018 with seed implants. 7. History of methicillin-resistant Staphylococcus aeruginosa. 8. History of skin cancer remotely in the right forearm. 9. Ascites. 10.Hyperlipidemia. 11.Anxiety and depression. 12.Previous history of nicotine dependence. 13.Deep venous thrombosis prophylaxis. RECOMMENDATIONS AND DISCUSSION: In this 82-year-old gentleman who presented with multiple complex medical issues , at this time I recommend to continue current medications, continue with the Dificid , continue with the rest of medications. Closely follow with Infectious Disease. I would also recommend n.p.o. except medications and ice chips only and start PPN. Dietary and Pharmacy will be contacted. Daily labs will be ordered. Overall prognosis guarded because of the multiple complex medical issues. Further recommendations to follow. There is no active pseudomonas infection, per Infectious Disease. Further recommendations to follow. MMODL / IJN: [id number] / ARLEEN
[2018-01-10 20:59] LABS: Glucose,Whole Blood 128 mg/dL (75-99)
[2018-01-10] MEDS: FAT EMULSION 20% 250 ML in EMPTY BAG 1 BAG IV SCH (22:35)
[2018-01-10] MEDS: ALPRAZolam 1 MG TAB PO PRN (22:58)
[2018-01-10] MEDS: MELATONIN 3 MG TABLET PO SCH (22:59)
[2018-01-10] MEDS: ASPIRIN 81 MG PO SCH (22:59)
[2018-01-10] MEDS: CITALOPRAM HYDROBROMIDE 20 MG TAB PO SCH (22:59)
[2018-01-10] MEDS: TAMSULOSIN 0.4 MG CAP.ER.24H PO SCH (22:59)
[2018-01-10] MEDS: ATORVASTATIN 10 MG TAB PO SCH (22:59)
[2018-01-11 00:22] LABS: Glucose,Whole Blood 161 mg/dL (75-99)
[2018-01-11] MEDS: INSULIN ASPART 100 UNIT/ML 1 ML 10 ML VIAL SQ SCH ×4 (00:32→18:56)
[2018-01-11] MEDS: IPRATROPIUM-ALBUTEROL 3 ML NEB INHALATION SCH ×7 (00:57→23:14)
[2018-01-11] MEDS: methylPREDNISolone SOD SUCCI 40 MG/ML 1 ML VIAL IV SCH ×3 (01:50→17:17)
--- NOTE | 2018-01-11 01:58 | PN ---
PROGRESS NOTE DATE OF SERVICE: 01/10/2018. REASON FOR FOLLOWUP: C difficile colitis. INTERVAL HISTORY: The patient is currently afebrile. His diarrhea frequency is slightly decreased. Stools slightly formed up and not as runny. The patient denies any abdominal pain. No chest pain, shortness of breath. Occasional cough. No nausea, no vomiting. EXAMINATION: Blood pressure 111/51 with a pulse of 90, temperature 98.1. He is 98% on 5 L nasal cannula. General description is an elderly male lying in bed in no distress. Respiratory system: Unlabored breathing. Clear to auscultation anteriorly. Heart S1, S2 regular rate and rhythm. Abdomen soft, no tenderness. Extremities: No edema of the feet. LABS: Hemoglobin 13.6, white count 25.5 with a BUN of 34, creatinine 0.89. DIAGNOSTIC IMPRESSION AND PLAN: Patient with acute C difficile colitis that responded very well to the oral vancomycin and has been switched over to Dificid which the patient has been tolerating so far and white count showing downward trend and keep the patient on the oral Dificid and Questran. Continue supportive care. MMODL / IJN: [id number] /
[2018-01-11] MEDS: SODIUM CHLORIDE 0.9% 1,000 ML IV SCH (04:03)
[2018-01-11 06:39] LABS: Glucose,Whole Blood 183 mg/dL (75-99)
[2018-01-11] MEDS: BUDESONIDE 1 MG/2 ML NEBU INHALATION SCH ×2 (08:09→20:15)
[2018-01-11] MEDS: FORMOTEROL FUMARATE 20 MCG/2 ML NEBU INHALATION SCH ×2 (08:09→20:15)
[2018-01-11 08:53] LABS: Basophils % (A) 0 %; Eosinophils % (A) 0 %; HCT 34.9 % (39.0-53.0); HGB 11.1 gm/dL (13.0-17.5); Lymphocytes # (A) 0.5 k/uL (1.0-4.8); Lymphocytes % (A) 4 %; MCH 28.3 pg (25.0-35.0); MCHC 31.7 g/dL (31.0-37.0); MCV 89.2 fL (80.0-100.0); Mean Platelet Volume 6.8; Monocytes # (A) 0.5 k/uL (0-1.0); Monocytes % (A) 3 %; Neutrophils # (A) 13.7 k/uL (1.3-7.7); Neutrophils % (A) 93 %; Platelet Count 206 k/uL (150-450); RBC 3.91 m/uL (4.30-5.90); RDW 14.4 % (11.5-15.5); WBC 14.8 k/uL (3.8-10.6)
[2018-01-11 09:11] LABS: Ionized Calcium 4.6 mg/dL (4.5-5.3)
[2018-01-11 09:39] LABS: Anion Gap 1 mmol/L; Blood Urea Nitrogen 31 mg/dL (9-20); Calcium 7.3 mg/dL (8.4-10.2); Carbon Dioxide 26 mmol/L (22-30); Chloride 103 mmol/L (98-107); Glucose 130 mg/dL (74-99); Magnesium 2.1 mg/dL (1.6-2.3); Phosphorus 3.5 mg/dL (2.5-4.5); Potassium 5.1 mmol/L (3.5-5.1); Sodium 130 mmol/L (137-145)
[2018-01-11] MEDS: 1: MVI, ADULT NO.4 WITH VIT K 10 ML, TRACE (CONC-1ML/DOSE) 1 ML in AMINO ACID 4.25%-D10W IV SCH ×6 (09:51→19:22)
[2018-01-11] MEDS: LACTOBACILLUS ACIDOPH & BULGAR 1 EACH PACKET PO SCH ×2 (09:52→20:56)
[2018-01-11] MEDS: CHOLESTYRAMINE (WITH SUGAR) 4 GM PACKET PO SCH ×4 (09:52→20:56)
[2018-01-11] MEDS: busPIRone HCl 5 MG TAB PO SCH ×2 (09:58→20:54)
[2018-01-11] MEDS: MULTIVITAMINS, THERA 1 EACH TAB PO SCH (09:59)
[2018-01-11] MEDS: FUROSEMIDE 10 MG/ML 2 ML VIAL IV SCH (09:59)
[2018-01-11] MEDS: FIDAXOMICIN 200 MG TABLET PO SCH ×2 (10:00→20:55)
[2018-01-11] MEDS: NYSTATIN 100,000 UNIT/ML SUSP 500,000 UNIT/5 ML CUP PO SCH ×4 (10:00→20:56)
[2018-01-11 11:10] LABS: Glucose,Whole Blood 126 mg/dL (75-99)
--- NOTE | 2018-01-11 11:25 | P.PN ---
Progress Note - Text Progress Note Date: 01/11/18 The patient states he feels better. He has had less frequent bowel movements. His abdominal pain is improved. On exam his vital signs are stable. His abdomen soft. There is no significant tenderness. Revolving C. diff colitis, patient will have his diet masses tolerated.
[2018-01-11] MEDS: FAT EMULSION 20% 250 ML in EMPTY BAG 1 BAG IV SCH (17:16)
--- NOTE | 2018-01-11 17:35 | PN ---
PROGRESS NOTE DATE OF SERVICE: 01/11/2018 This 82-year-old gentleman who was admitted with acute C difficile colitis and sepsis, also had elevated WBC. The patient started on PPN and the patient also been kept for n.p.o. at this time. The patient is on Dificid. Multiple consultants are following the patient closely. Patient's has diffuse abdominal distention and ascites on the CT scan. No acute abdomen was detected. Surgery is following the patient closely. PAST MEDICAL HISTORY: Reviewed. REVIEW OF SYSTEMS: CARDIOVASCULAR SYSTEM: No angina. RESPIRATORY: As mentioned earlier. GI: As mentioned earlier. : No dysuria. NERVOUS SYSTEM: ntd CURRENT MEDICATIONS: Current medications are reviewed and include: 1. DuoNeb q.i.d. and p.r.n. 2. Xanax 1 mg daily. 3. Aspirin 81 mg. 4. Lipitor 10 mg. 5. Pulmicort 1 mg b.i.d. 6. BuSpar. 7. Questran. 8. Dificid. 9. Perforomist 20 mcg. 10.NovoLog. 11.Lactinex. 12.Solu-Medrol 20 IV q.8. 13.Mycostatin. 14.Flomax. PHYSICAL EXAMINATION: Patient is alert and oriented x3. Pulse is 95, blood pressure 123/60, respiration 16, temperature is 97.8, pulse ox 97% on 5 L. HEENT: Conjunctivae normal. Oral mucosa moist. Neck is no jugular venous distention. No carotid bruit. No lymph node enlargement. CARDIOVASCULAR: S1, S2 muffled. RESPIRATION: Breath sounds diminished at the bases. A few scattered rhonchi and crackles. Expiratory wheezing also present. ABDOMEN: Soft. Mild diffuse distention. Mild diffuse discomfort. No guarding , no rigidity. No mass palpable. Ascites present. Bowel sounds diminished. LEGS: Minimal edema. NERVOUS SYSTEM: Diffusely weak. LABS: Labs are at this time WBC 14.8, hemoglobin 11.1. Sodium 130. ASSESSMENT: 1. Acute Clostridium difficile colitis with sepsis with persistent diarrhea and abdominal distention. 2. Lactic acidosis secondary to sepsis and as well as volume depletion. 3. Chronic obstructive pulmonary disease acute exacerbation with acute on chronic hypoxic respiratory failure. 4. Recent history of Pseudomonas pneumonia, failed outpatient treatment, currently not active per ID. 5. Pulmonary fibrosis. 6. History of prostate cancer with radiation in 2018 with seed implants. 7. History of methicillin-resistant Staphylococcus aureus. 8. History of skin cancer remotely in the right forearm. 9. Ascites. 10.Hyperlipidemia. 11.Anxiety, depression. 12.Previous history of nicotine dependence. 13.Deep venous thrombosis prophylaxis. RECOMMENDATIONS AND DISCUSSION: Recommend to continue current medications, continue symptomatic treatment. Continue with PPN at this time. Otherwise monitor creatinine closely. We will continue the evaluation of the white count also. Otherwise continue the low-dose steroids. Guarded prognosis because of multiple complex medical issues. Further recommendations to follow. MMODL / IJN: [id number] / ARLEEN
[2018-01-11 18:53] LABS: Glucose,Whole Blood 111 mg/dL (75-99)
[2018-01-11] MEDS: ASPIRIN 81 MG PO SCH (20:53)
[2018-01-11] MEDS: MELATONIN 3 MG TABLET PO SCH (20:54)
[2018-01-11] MEDS: CITALOPRAM HYDROBROMIDE 20 MG TAB PO SCH (20:54)
[2018-01-11] MEDS: TAMSULOSIN 0.4 MG CAP.ER.24H PO SCH (20:54)
[2018-01-11] MEDS: ATORVASTATIN 10 MG TAB PO SCH (20:54)
[2018-01-11] MEDS: ALPRAZolam 1 MG TAB PO PRN (21:01)
[2018-01-11 23:58] LABS: Glucose,Whole Blood 162 mg/dL (75-99)
[2018-01-12] MEDS: INSULIN ASPART 100 UNIT/ML 1 ML 10 ML VIAL SQ SCH ×5 (00:09→21:23)
[2018-01-12] MEDS: SODIUM CHLORIDE 0.9% 1,000 ML IV SCH ×2 (00:11→19:54)
[2018-01-12] MEDS: methylPREDNISolone SOD SUCCI 40 MG/ML 1 ML VIAL IV SCH ×3 (02:24→17:49)
[2018-01-12] MEDS: IPRATROPIUM-ALBUTEROL 3 ML NEB INHALATION SCH ×6 (03:29→23:52)
[2018-01-12] MEDS: 1: MVI, ADULT NO.4 WITH VIT K 10 ML, TRACE (CONC-1ML/DOSE) 1 ML in AMINO ACID 4.25%-D10W IV SCH ×6 (04:06→16:29)
[2018-01-12 06:21] LABS: Glucose,Whole Blood 154 mg/dL (75-99)
--- NOTE | 2018-01-12 07:15 | PN ---
PROGRESS NOTE DATE OF SERVICE: 01/11/2018 REASON FOR FOLLOWUP: Clostridium difficile colitis. INTERVAL HISTORY: The patient is currently afebrile, has been breathing comfortably. Denies significant chest pain, cough. No abdominal pain and diarrhea frequency has decreased. EXAMINATION: Blood pressure 122/66 with a pulse of 90, temperature 98 he is 97% on 5 L nasal cannula. General description is an elderly male lying in bed in no distress. Respiratory System: Unlabored breathing, clear to auscultation anteriorly. Heart S1, S2. Regular rate and rhythm. Abdomen: Soft, no tenderness. Extremities: No edema of the feet. LABS: Hemoglobin is 11.1, white count 14.8. BUN of 21, creatinine 0.74. DIAGNOSTIC IMPRESSION AND PLAN: 1. Patient with Clostridium difficile colitis. Did not responded very well to oral vancomycin. Currently doing well on the oral Dificid and his white count has come down as well. To continue with oral Dificid to finish a 2 week course of therapy. 2. Positive sputum cultures, most likely colonization. Currently no clinical signs of pneumonia. ( ) for the same. Continue supportive care. MMODL / IJN: [id number] /
[2018-01-12 07:40] LABS: Anion Gap 4 mmol/L; Blood Urea Nitrogen 27 mg/dL (9-20); Calcium 7.2 mg/dL (8.4-10.2); Carbon Dioxide 27 mmol/L (22-30); Chloride 99 mmol/L (98-107); Glucose 134 mg/dL (74-99); Phosphorus 3.2 mg/dL (2.5-4.5); Potassium 4.9 mmol/L (3.5-5.1); Sodium 130 mmol/L (137-145)
[2018-01-12] MEDS: FORMOTEROL FUMARATE 20 MCG/2 ML NEBU INHALATION SCH ×2 (08:17→20:36)
[2018-01-12] MEDS: BUDESONIDE 1 MG/2 ML NEBU INHALATION SCH ×2 (08:17→20:36)
[2018-01-12] MEDS: busPIRone HCl 5 MG TAB PO SCH ×2 (09:13→20:07)
[2018-01-12] MEDS: LACTOBACILLUS ACIDOPH & BULGAR 1 EACH PACKET PO SCH ×2 (09:14→20:07)
[2018-01-12] MEDS: FIDAXOMICIN 200 MG TABLET PO SCH ×2 (09:16→21:20)
[2018-01-12] MEDS: FUROSEMIDE 10 MG/ML 2 ML VIAL IV SCH (09:17)
[2018-01-12] MEDS: MULTIVITAMINS, THERA 1 EACH TAB PO SCH (09:17)
[2018-01-12] MEDS: NYSTATIN 100,000 UNIT/ML SUSP 500,000 UNIT/5 ML CUP PO SCH ×4 (09:23→20:07)
[2018-01-12] MEDS: CHOLESTYRAMINE (WITH SUGAR) 4 GM PACKET PO SCH ×4 (10:19→20:07)
--- NOTE | 2018-01-12 10:36 | P.PN ---
Progress Note - Text Progress Note Date: 01/12/18 The patient resting comfortably in bed. He states his diarrhea has slowed down. He has no abdominal pain. On exam vessels are stable. His abdomen soft. Resolving C. diff colitis infection. Patient will continue receive IV antibiotic. He will have his diet advanced.
[2018-01-12 13:10] LABS: Glucose,Whole Blood 164 mg/dL (75-99)
--- NOTE | 2018-01-12 16:42 | PN ---
PROGRESS NOTE DATE OF SERVICE: 01/12/2018. REASON FOR FOLLOW UP: C difficile colitis. INTERVAL HISTORY: The patient is afebrile. The patient seemed to be slightly upset as he has been kept n.p.o. for almost 72 hours long. The patient denies having any chest pain or shortness of breath or cough. No nausea, vomiting, abdominal pain. Diarrhea frequency has decreased. EXAMINATION: Blood pressure 135/66, pulse of 99, temperature 97.6. He is 98% on 5 L nasal cannula. General description is an elderly male lying in bed in no distress. RESPIRATORY SYSTEM: Unlabored breathing. Clear to auscultation anteriorly. HEART: S1, S2. Regular rate. ABDOMEN: Soft, no tenderness. EXTREMITIES: No edema of the feet. LABS: BUN of 27, creatinine 0.63. No CBC was done today. DIAGNOSTIC IMPRESSION AND PLAN: Patient with C difficile colitis. Did not respond very well to oral vancomycin, however, his white count did improve after he was started on Dificid. To continue with Dificid to finish a 10 day course of therapy along with Questran. His questions and concerns were answered. Dr. Marshall will take over the care as of tomorrow. Continue supportive care. MMODL / IJN: [id number] /
[2018-01-12] MEDS: FAT EMULSION 20% 250 ML in EMPTY BAG 1 BAG IV SCH (17:10)
[2018-01-12 17:20] LABS: Glucose,Whole Blood 146 mg/dL (75-99)
[2018-01-12] MEDS: ASPIRIN 81 MG PO SCH (20:06)
[2018-01-12] MEDS: MELATONIN 3 MG TABLET PO SCH (20:07)
[2018-01-12] MEDS: ATORVASTATIN 10 MG TAB PO SCH (20:07)
[2018-01-12] MEDS: TAMSULOSIN 0.4 MG CAP.ER.24H PO SCH (20:07)
[2018-01-12] MEDS: CITALOPRAM HYDROBROMIDE 20 MG TAB PO SCH (20:07)
[2018-01-12 21:11] LABS: Glucose,Whole Blood 171 mg/dL (75-99)
[2018-01-12] MEDS: ALPRAZolam 1 MG TAB PO PRN (21:20)
--- NOTE | 2018-01-13 00:06 | P.PN ---
Subjective This is a pleasant 82 years old male whose past medical history including COPD, hyperlipidemia and prostate disorder. Patient is found to have C. diff, he has about 5 to both soft bowel movement. and history of Pseudomonas pneumonia diagnosed some time in April 2017 and is currently maintained on inhaled tobramycin every other month as per ID recommendations came to ER with complaints of abdominal pain and diarrhea. Patient did have diarrhea for the past 2 days and he did take Imodium at home. Patient does have nausea. No episodes of vomiting. 3-4 loose stools yesterday. Patient denied abdominal pain last night which has been getting worse and made him come to ER. Denied any hematemesis or melena. Denied any gross blood in the stool. Patient does have fever with T-max 100.9 on admission. Patient was tachycardic on admission. Patient was also having difficulty breathing while in the ER. Does have cough with whitish to light yellow sputum production. No change in color recently. Patient did see his doctor 2 days ago and was started on theophylline and steroids. Patient does have COPD oxygen dependent file it with another cannula. CT of the abdomen pelvis showed in the ER showed gross thickening of the colon including sigmoid colon and descending colon .. Consistent with infectious rather than intermittently colitis. Emphysematous changes as well as pulmonary fibrosis. Cholelithiasis and evidence of old granulomatous disease. Chest x-ray showed improved aeration and pulmonary fibrosis. EKG showed sinus tachycardia WBC 26.3 Lactic acid 3.7 Patient was started on antibiotics in the form of Levaquin and Flagyl. C. diff toxin was sent. 01/12/2018 Today patient was upset because he is nothing by mouth and he wanted to start fluid, clear liquid diet started and is okay with surgery. He agrees. aspiration precaution patient denies abdominal pain, he has about 4-5 bouts of diarrhea. No nausea or vomiting. Breathing is fine no chest pain. Vitas looks stable. Leukocytosis improvement from 25-14.8 K. Test of CBC and BMP were unremarkable except for low sodium at 130. Creatinine 0.6. Sugar is controlled. He remains on gentle hydration, as well as Lasix daily. He is on nystatin and Dificid antibiotic for his c diff .Continue with steroids. Surgical team are following the patient. Objective - Vital Signs Vital signs: Vital Signs Temp 97.6 F 01/12/18 11:25 Pulse 89 01/12/18 11:49 Resp 16 01/12/18 11:41 BP 135/66 01/12/18 11:25 Pulse Ox 98 01/12/18 11:25 Intake & Output 01/11/18 01/12/18 01/12/18 18:59 06:59 18:59 Intake Total 989.733 Output Total 200 700 600 Balance -200 289.733 -600 Weight 81 kg Intake: Intake, IV Titration 989.733 Amount Amino Acid 4.25%-D10w+ 989.733 Lytes*E* 1,000 ml @ 104 mls/hr IV .BY DURATION JANETTE Rx#:[id number] Output: Urine 200 700 Urine/Stool Mix 600 Other: Voiding Method Bedside Commode Bedside Commode Bedside Commode # Voids 2 # Bowel Movements 2 - Labs CBC & Chem 7: 01/11/18 08:27 01/12/18 06:10 Labs: Abnormal Lab Results - Last 24 Hours (Table) 01/11/18 01/11/18 01/12/18 Range/Units 18:52 23:56 06:06 Sodium (137-145) mmol/L BUN (9-20) mg/dL Creatinine (0.66-1.25) mg/dL Glucose (74-99) mg/dL POC Glucose (mg/dL) 111 H 162 H 154 H (75-99) mg/dL Calcium (8.4-10.2) mg/dL 01/12/18 01/12/18 Range/Units 06:10 13:09 Sodium 130 L (137-145) mmol/L BUN 27 H (9-20) mg/dL Creatinine 0.63 L (0.66-1.25) mg/dL Glucose 134 H (74-99) mg/dL POC Glucose (mg/dL) 164 H (75-99) mg/dL Calcium 7.2 L (8.4-10.2) mg/dL Microbiology - Last 24 Hours (Table) 01/08/18 22:19 Blood Culture - Preliminary Blood No Growth after 72 hours 01/08/18 22:26 Blood Culture - Preliminary Blood No Growth after 72 hours 01/06/18 16:54 Gram Stain - Final Sputum Sputum Culture - Final Pseudomonas aeruginosa [place] albicans 01/05/18 18:40 Stool Culture - Final Stool
[2018-01-13] MEDS: methylPREDNISolone SOD SUCCI 40 MG/ML 1 ML VIAL IV SCH ×2 (01:35→12:38)
[2018-01-13] MEDS: 1: MVI, ADULT NO.4 WITH VIT K 10 ML, TRACE (CONC-1ML/DOSE) 1 ML in AMINO ACID 4.25%-D10W IV SCH ×12 (02:26→23:48)
[2018-01-13] MEDS: IPRATROPIUM-ALBUTEROL 3 ML NEB INHALATION SCH ×5 (03:18→19:35)
[2018-01-13] MEDS: INSULIN ASPART 100 UNIT/ML 1 ML 10 ML VIAL SQ SCH ×3 (05:56→17:26)
[2018-01-13 06:36] LABS: Glucose,Whole Blood 168 mg/dL (75-99)
[2018-01-13 07:38] LABS: Basophils % (A) 0 %; Eosinophils % (A) 0 %; HCT 32.1 % (39.0-53.0); HGB 10.2 gm/dL (13.0-17.5); Lymphocytes # (A) 0.4 k/uL (1.0-4.8); Lymphocytes % (A) 4 %; MCHC 31.9 g/dL (31.0-37.0); MCV 87.9 fL (80.0-100.0); Mean Platelet Volume 6.7; Monocytes # (A) 0.3 k/uL (0-1.0); Monocytes % (A) 3 %; Neutrophils # (A) 9.1 k/uL (1.3-7.7); Neutrophils % (A) 93 %; Platelet Count 175 k/uL (150-450); RBC 3.65 m/uL (4.30-5.90); RDW 14.3 % (11.5-15.5); WBC 9.9 k/uL (3.8-10.6)
[2018-01-13 07:51] LABS: Anion Gap 1 mmol/L; Blood Urea Nitrogen 24 mg/dL (9-20); Calcium 7.5 mg/dL (8.4-10.2); Carbon Dioxide 32 mmol/L (22-30); Chloride 98 mmol/L (98-107); Glucose 147 mg/dL (74-99); Potassium 4.7 mmol/L (3.5-5.1); Sodium 131 mmol/L (137-145)
[2018-01-13] MEDS: BUDESONIDE 1 MG/2 ML NEBU INHALATION SCH ×2 (08:19→19:35)
[2018-01-13] MEDS: FORMOTEROL FUMARATE 20 MCG/2 ML NEBU INHALATION SCH ×2 (08:19→19:35)
[2018-01-13] MEDS: HEPARIN SODIUM,PORCINE 5,000 UNIT/ML 1 ML VIAL SQ SCH ×2 (09:13→20:19)
[2018-01-13] MEDS: LACTOBACILLUS ACIDOPH & BULGAR 1 EACH PACKET PO SCH ×2 (09:13→20:19)
[2018-01-13] MEDS: FIDAXOMICIN 200 MG TABLET PO SCH ×2 (09:13→23:43)
[2018-01-13] MEDS: busPIRone HCl 5 MG TAB PO SCH ×2 (09:13→20:19)
[2018-01-13] MEDS: FUROSEMIDE 10 MG/ML 2 ML VIAL IV SCH (09:13)
[2018-01-13] MEDS: CHOLESTYRAMINE (WITH SUGAR) 4 GM PACKET PO SCH ×4 (09:13→20:19)
[2018-01-13] MEDS: NYSTATIN 100,000 UNIT/ML SUSP 500,000 UNIT/5 ML CUP PO SCH ×4 (09:19→20:19)
[2018-01-13 11:03] LABS: Glucose,Whole Blood 112 mg/dL (75-99)
[2018-01-13] MEDS: MULTIVITAMINS, THERA 1 EACH TAB PO SCH (12:38)
[2018-01-13] MEDS ORDERED: FUROSEMIDE 10 MG/ML 2 ML VIAL IV ONE (13:41)
--- NOTE | 2018-01-13 16:45 | P.PN ---
Progress Note - Text Progress Note Date: 01/13/18 The patient is feeling better. He has not had a bowel movement for over 8 hours. On exam his vital signs are stable. His abdomen soft. Patient will have his diet advanced. C. diff colitis is resolving.
[2018-01-13 17:00] LABS: Glucose,Whole Blood 142 mg/dL (75-99)
[2018-01-13] MEDS: FAT EMULSION 20% 250 ML in EMPTY BAG 1 BAG IV SCH (17:27)
--- NOTE | 2018-01-13 18:38 | P.PN ---
Subjective This is a pleasant 82 years old male whose past medical history including COPD, hyperlipidemia and prostate disorder. Patient is found to have C. diff, he has about 5 to both soft bowel movement. and history of Pseudomonas pneumonia diagnosed some time in April 2017 and is currently maintained on inhaled tobramycin every other month as per ID recommendations came to ER with complaints of abdominal pain and diarrhea. Patient did have diarrhea for the past 2 days and he did take Imodium at home. Patient does have nausea. No episodes of vomiting. 3-4 loose stools yesterday. Patient denied abdominal pain last night which has been getting worse and made him come to ER. Denied any hematemesis or melena. Denied any gross blood in the stool. Patient does have fever with T-max 100.9 on admission. Patient was tachycardic on admission. Patient was also having difficulty breathing while in the ER. Does have cough with whitish to light yellow sputum production. No change in color recently. Patient did see his doctor 2 days ago and was started on theophylline and steroids. Patient does have COPD oxygen dependent file it with another cannula. CT of the abdomen pelvis showed in the ER showed gross thickening of the colon including sigmoid colon and descending colon .. Consistent with infectious rather than intermittently colitis. Emphysematous changes as well as pulmonary fibrosis. Cholelithiasis and evidence of old granulomatous disease. Chest x-ray showed improved aeration and pulmonary fibrosis. EKG showed sinus tachycardia WBC 26.3 Lactic acid 3.7 Patient was started on antibiotics in the form of Levaquin and Flagyl. C. diff toxin was sent. 01/12/2018 Today patient was upset because he is nothing by mouth and he wanted to start fluid, clear liquid diet started and is okay with surgery. He agrees. aspiration precaution patient denies abdominal pain, he has about 4-5 bouts of diarrhea. No nausea or vomiting. Breathing is fine no chest pain. Vitas looks stable. Leukocytosis improvement from 25-14.8 K. Test of CBC and BMP were unremarkable except for low sodium at 130. Creatinine 0.6. Sugar is controlled. He remains on gentle hydration, as well as Lasix daily. He is on nystatin and Dificid antibiotic for his c diff .Continue with steroids. Surgical team are following the patient. 01/13/2018 pt looks more satisfied today compared to yesterday when i saw him , he tolerated his clear liquid diet and asks if can be advanced, we are going to give full liquid diet, no abd pain , no n/v , he had one large bowel movement last night and one large one this morning so far. dc iv fluid, pt has b/l leg edema , and penile swelling but no pain , we will check bladder scan as pt spoke about some difficutly with voinding. give iv lasix 40 mg. pt with no chest pain , dyspnea is mild , no cough , and wheezing is subsiding , we switch his iv steroid prdnisone to start taper. Objective - Vital Signs Vital signs: Vital Signs Temp 98 F 01/13/18 15:18 Pulse 94 01/13/18 16:49 Resp 18 01/13/18 16:36 BP 132/66 01/13/18 15:18 Pulse Ox 98 01/13/18 16:36 Intake & Output 01/12/18 01/13/18 01/13/18 18:59 06:59 18:59 Intake Total 1011 250 480 Output Total 345 928 3039 Balance 411 -932 -7450 Weight 81 kg 81 kg Intake: Intake, IV Titration 1011 250 Amount Fat Emulsion 20% 250 ml 250 In Empty Bag 1 bag @ 21 mls/hr IV DAILY@1800 [facility] Rx#:[id number] Mvi, Adult No.4 with Vit 1011 K 10 ml Trace (Conc-1Ml/ Dose) 1 ml In Amino Acid 4.25%-D10w+Lytes*E* 1,000 ml @ 104 mls/hr IV .BY DURATION JANETTE Rx#: [id number] Oral 480 Output: Urine 750 3100 Urine/Stool Mix 600 Other: Voiding Method Bedside Commode Urinal Urinal # Bowel Movements 1 - Exam GENERAL: The patient is alert and oriented x3, not in any acute distress. somewhat emaciated HEENT: Pupils are round and equally reacting to light. EOMI. No scleral icterus. No conjunctival pallor. Normocephalic, atraumatic. No pharyngeal erythema. No thyromegaly. CARDIOVASCULAR: S1 and S2 present. No murmurs, rubs, or gallops. PULMONARY: Chest is clear to auscultation, no wheezing or crackles. ABDOMEN: Soft, nontender, nondistended, normoactive bowel sounds. No palpable organomegaly. MUSCULOSKELETAL: No joint swelling or deformity. -EXTREMITIES: No cyanosis, clubbing. pt has bilateral leg edema up to the knees. NEUROLOGICAL: Gross neurological examination did not reveal any focal deficits. SKIN: No rashes. - Labs CBC & Chem 7: 01/13/18 07:08 01/13/18 07:08 Labs: Abnormal Lab Results - Last 24 Hours (Table) 01/12/18 01/13/18 01/13/18 Range/Units 21:09 05:53 07:08 RBC (4.30-5.90) m/uL Hgb (13.0-17.5) gm/dL Hct (39.0-53.0) % Neutrophils # (1.3-7.7) k/uL Lymphocytes # (1.0-4.8) k/uL Sodium 131 L (137-145) mmol/L Carbon Dioxide 32 H (22-30) mmol/L BUN 24 H (9-20) mg/dL Creatinine 0.57 L (0.66-1.25) mg/dL Glucose 147 H (74-99) mg/dL POC Glucose (mg/dL) 171 H 168 H (75-99) mg/dL Calcium 7.5 L (8.4-10.2) mg/dL 01/13/18 01/13/18 01/13/18 Range/Units 07:08 11:01 16:34 RBC 3.65 L (4.30-5.90) m/uL Hgb 10.2 L (13.0-17.5) gm/dL Hct 32.1 L (39.0-53.0) % Neutrophils # 9.1 H (1.3-7.7) k/uL Lymphocytes # 0.4 L (1.0-4.8) k/uL Sodium (137-145) mmol/L Carbon Dioxide (22-30) mmol/L BUN (9-20) mg/dL Creatinine (0.66-1.25) mg/dL Glucose (74-99) mg/dL POC Glucose (mg/dL) 112 H 142 H (75-99) mg/dL Calcium (8.4-10.2) mg/dL Microbiology - Last 24 Hours (Table) 01/08/18 22:19 Blood Culture - Preliminary Blood No Growth after 96 hours 01/08/18 22:26 Blood Culture - Preliminary Blood No Growth after 96 hours Assessment and Plan Assessment: c. diff colitis , still has ongoing diarrhea lactic acidosis secondary to sepsis COPD acute exacerbation with acute on chronic resp failure , pulmonary fibrosis scrotal swelling h/o prostate cancer with radiation therapy on 2018 h/o MRSA infection ascitis hyperlipidemia Plan: this is a pleasant 82 yo M who presents with c diff colitis, c/w antibiotic as per ID team , c/w PPN, start and advance diet as tolerated. continue with the same treatment , continue with symptomatic treatment , resume home medication , monitor lytes and vitals including glucose , c/w iv fluids, cardiology consult is appreciated. infectious disease consult is appreciated . c /w same antibioitc . GI and DVT prophylaxis , further recommendation based upon pt clinical course and progress DVT prophylaxis subcutaneous heparin GI prophylaxis Pepcid PT/OT: pending Prognosis is guarded
[2018-01-13] MEDS: MELATONIN 3 MG TABLET PO SCH (20:18)
[2018-01-13] MEDS: ASPIRIN 81 MG PO SCH (20:18)
[2018-01-13] MEDS: CITALOPRAM HYDROBROMIDE 20 MG TAB PO SCH (20:18)
[2018-01-13] MEDS: TAMSULOSIN 0.4 MG CAP.ER.24H PO SCH (20:18)
[2018-01-13] MEDS: ATORVASTATIN 10 MG TAB PO SCH (20:18)
[2018-01-13] MEDS: ALPRAZolam 1 MG TAB PO PRN (20:18)
[2018-01-13 20:51] LABS: Glucose,Whole Blood 153 mg/dL (75-99)
--- NOTE | 2018-01-13 22:08 | P.PN ---
Subjective Progress Note Date: 01/13/18 82-year-old male is well-known to the infectious disease service from his prior hospitalizations and office follow-up through the summer. The patient has a known history of advanced oxygen and occasionally steroid- dependent extremities be COPD, he was having frequent exacerbations and was with a [id number] pseudomonas aeruginosa. 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 He is becoming more short of breath he was having increasing weakness was having off and about 4 stools a day. Occasionally were watery but most of the time it was formed. He does relate to some crampy abdominal pain especially the left lower quadrant. He is not having nausea or emesis. He is having no hematemesis or melena or hematochezia. He does have fatigue and malaise. 01/07/2018 the patient is feeling about the same as he has had the last few days but the frequency of stools has improved slightly. Is not having fevers or trills. Does not have much abdominal pain. 01/13 2018 patient is now feeling just slightly better. He still having multiple loose stools per day. He was having ongoing significant diarrhea despite the vancomycin therapy was transitioned to Dificid. He believes he somewhat improved. Still having some ongoing diarrhea. He feels weak because of it. That is improved from admission. No fevers or chills. No nausea or emesis but appetite is somewhat poor. Objective - Vital Signs Vital signs: Vital Signs Temp 98.0 F 01/13/18 19:55 Pulse 108 H 01/13/18 19:57 Resp 18 01/13/18 19:55 BP 111/57 01/13/18 19:55 Pulse Ox 98 01/13/18 19:55 Intake & Output 01/13/18 01/13/18 01/14/18 06:59 18:59 06:59 Intake Total 250 840 Output Total 750 3100 Balance -500 -2260 Weight 81 kg 81 kg Intake: Intake, IV Titration 250 Amount Fat Emulsion 20% 250 ml 250 In Empty Bag 1 bag @ 21 mls/hr IV DAILY@1800 [facility] Rx#:[id number] Oral 840 Output: Urine 750 3100 Other: Voiding Method Urinal Urinal Urinal # Bowel Movements 1 - Exam 82-year-old male who is on oxygen at 5 L which is his baseline dose relates that he's feeling better since coming to hospital, short of breath and is having potentially some improvement of his stools. HEENT: Anicteric conjunctiva are pink and moist nasal mucosa grossly intact without significant lesions, there is no thrush. Neck: The neck is supple without significant lymphadenopathy or thyromegaly. Lungs: Symmetrical air entry is noted, rare expiratory wheezes are heard no blanca bronchial sounds dullness or egophony Heart: Regular rate and rhythm with an audible S1-S2, no S3 no S4. There is no significant murmur click or rub, PMI was nondisplaced. Abdomen: The abdomen is soft and nondistended, no palpable hepatosplenomegaly, no masses no guarding or rebound has minimal left lower quadrant tenderness Extremities: The upper extremities have excellent pulses they are symmetric, no significant petechiae or telangiectasia. No splinter hemorrhages were noted. The lower extremities are free from significant edema. The peripheral pulses were 2+ and symmetric. Neuro: Awake alert oriented to person place and time. There are no acute new gross focal sensory motor deficits. - Labs CBC & Chem 7: 01/13/18 07:08 01/13/18 07:08 Labs: Abnormal Lab Results - Last 24 Hours (Table) 01/13/18 01/13/18 01/13/18 Range/Units 05:53 07:08 07:08 RBC 3.65 L (4.30-5.90) m/uL Hgb 10.2 L (13.0-17.5) gm/dL Hct 32.1 L (39.0-53.0) % Neutrophils # 9.1 H (1.3-7.7) k/uL Lymphocytes # 0.4 L (1.0-4.8) k/uL Sodium 131 L (137-145) mmol/L Carbon Dioxide 32 H (22-30) mmol/L BUN 24 H (9-20) mg/dL Creatinine 0.57 L (0.66-1.25) mg/dL Glucose 147 H (74-99) mg/dL POC Glucose (mg/dL) 168 H (75-99) mg/dL Calcium 7.5 L (8.4-10.2) mg/dL 01/13/18 01/13/18 01/13/18 Range/Units 11:01 16:34 20:49 RBC (4.30-5.90) m/uL Hgb (13.0-17.5) gm/dL Hct (39.0-53.0) % Neutrophils # (1.3-7.7) k/uL Lymphocytes # (1.0-4.8) k/uL Sodium (137-145) mmol/L Carbon Dioxide (22-30) mmol/L BUN (9-20) mg/dL Creatinine (0.66-1.25) mg/dL Glucose (74-99) mg/dL POC Glucose (mg/dL) 112 H 142 H 153 H (75-99) mg/dL Calcium (8.4-10.2) mg/dL Microbiology - Last 24 Hours (Table) 01/08/18 22:19 Blood Culture - Preliminary Blood No Growth after 96 hours 01/08/18 22:26 Blood Culture - Preliminary Blood No Growth after 96 hours Laboratory Results WBC 9.9 k/uL (3.8-10.6) 01/13/18 07:08 RBC 3.65 m/uL (4.30-5.90) L 01/13/18 07:08 Hgb 10.2 gm/dL (13.0-17.5) L 01/13/18 07:08 Hct 32.1 % (39.0-53.0) L 01/13/18 07:08 MCV 87.9 fL (80.0-100.0) 01/13/18 07:08 MCH 28.0 pg (25.0-35.0) 01/13/18 07:08 MCHC 31.9 g/dL (31.0-37.0) 01/13/18 07:08 RDW 14.3 % (11.5-15.5) 01/13/18 07:08 Plt Count 175 k/uL (150-450) 01/13/18 07:08 Neutrophils % 93 % 01/13/18 07:08 Neutrophils % (Manual) 91 % 01/09/18 05:51 Band Neutrophils % 2 % 01/09/18 05:51 Lymphocytes % 4 % 01/13/18 07:08 Lymphocytes % (Manual) 5 % 01/09/18 05:51 Monocytes % 3 % 01/13/18 07:08 Monocytes % (Manual) 2 % 01/09/18 05:51 Eosinophils % 0 % 01/13/18 07:08 Basophils % 0 % 01/13/18 07:08 Myelocytes % 1 % 01/08/18 14:02 Neutrophils # 9.1 k/uL (1.3-7.7) H 01/13/18 07:08 Neutrophils # (Manual) 28.90 k/uL (1.3-7.7) H 01/09/18 05:51 Lymphocytes # 0.4 k/uL (1.0-4.8) L 01/13/18 07:08 Lymphocytes # (Manual) 1.56 k/uL (1.0-4.8) 01/09/18 05:51 Monocytes # 0.3 k/uL (0-1.0) 01/13/18 07:08 Monocytes # (Manual) 0.62 k/uL (0-1.0) 01/09/18 05:51 Eosinophils # 0.0 k/uL (0-0.7) 01/13/18 07:08 Basophils # 0.0 k/uL (0-0.2) 01/13/18 07:08 Myelocytes # (Manual) 0.33 k/uL (0) H 01/08/18 14:02 Nucleated RBCs 0 /100 WBC (0-0) 01/09/18 05:51 Manual Slide Review Performed 01/09/18 05:51 Toxic Granulation Present 01/08/18 14:02 Toxic Vacuolation Present 01/09/18 05:51 Large Platelets Present 01/08/18 14:02 Hypochromasia Slight 01/10/18 06:19 PT 9.9 sec (9.0-12.0) 01/04/18 10:50 INR 1.0 (<1.2) 01/04/18 10:50 APTT 24.3 sec (22.0-30.0) 01/04/18 10:50 Sodium 131 mmol/L (137-145) L 01/13/18 07:08 Potassium 4.7 mmol/L (3.5-5.1) 01/13/18 07:08 Chloride 98 mmol/L (98-107) 01/13/18 07:08 Carbon Dioxide 32 mmol/L (22-30) H 01/13/18 07:08 Anion Gap 1 mmol/L 01/13/18 07:08 BUN 24 mg/dL (9-20) H 01/13/18 07:08 Creatinine 0.57 mg/dL (0.66-1.25) L 01/13/18 07:08 Est GFR (CKD-EPI)AfAm >90 (>60 ml/min/1.73 sqM) 01/13/18 07:08 Est GFR (CKD-EPI)NonAf >90 (>60 ml/min/1.73 sqM) 01/13/18 07:08 Glucose 147 mg/dL (74-99) H 01/13/18 07:08 POC Glucose (mg/dL) 153 mg/dL (75-99) H 01/13/18 20:49 POC Glu [employer] ID Mary Hurtado 01/13/18 20:[address] Glu mg/dL 108 01/06/18 06:10 Hemoglobin A1c 5.4 % (4.0-6.0) 01/06/18 06:10 Lactic Ac Sepsis Rflx Y 01/09/18 06:14 Plasma Lactic Acid Giovanni 2.3 mmol/L (0.7-2.0) H* 01/09/18 09:37 Calcium 7.5 mg/dL (8.4-10.2) L 01/13/18 07:08 Ionized Calcium Perla 4.6 mg/dL (4.5-5.3) 01/11/18 08:27 Phosphorus 3.2 mg/dL (2.5-4.5) 01/12/18 06:10 Magnesium 2.0 mg/dL (1.6-2.3) 01/12/18 06:10 Total Bilirubin 0.4 mg/dL (0.2-1.3) 01/04/18 10:50 AST 28 U/L (17-59) 01/04/18 10:50 ALT 23 U/L (21-72) 01/04/18 10:50 Alkaline Phosphatase 80 U/L (38-126) 01/04/18 10:50 Total Protein 5.7 g/dL (6.3-8.2) L 01/04/18 10:50 Albumin 2.1 g/dL (3.5-5.0) L 01/10/18 06:19 Triglycerides 183 mg/dL (<150) H 01/10/18 06:19 Amylase 34 U/L (30-110) 01/04/18 10:50 Lipase 44 U/L (23-300) 01/04/18 10:50 Urine Color Yellow 01/04/18 12:55 Urine Appearance Clear (Clear) 01/04/18 12:55 Urine pH 5.5 (5.0-8.0) 01/04/18 12:55 Ur Specific [place] 1.043 (1.001-1.035) H 01/04/18 12:55 Urine Protein Trace (Negative) H 01/04/18 12:55 Urine Glucose (UA) Negative (Negative) 01/04/18 12:55 Urine Ketones Negative (Negative) 01/04/18 12:55 Urine Blood Negative (Negative) 01/04/18 12:55 Urine Nitrite Negative (Negative) 01/04/18 12:55 Urine Bilirubin Negative (Negative) 01/04/18 12:55 Urine Urobilinogen <2.0 mg/dL (<2.0) 01/04/18 12:55 Ur Leukocyte Esterase Negative (Negative) 01/04/18 12:55 Stool Lactoferrin POSITIVE (NEGATIVE) H 01/05/18 18:40 Theophylline 14.5 ug/mL 01/04/18 10:50 C. difficile (EIA) Intrp Positive (Negative) A 01/05/18 11:20 Microbiology 01/08/18 22:19 Blood Blood Culture - Preliminary No Growth after 96 hours 01/08/18 22:26 Blood Blood Culture - Preliminary No Growth after 96 hours 01/06/18 16:54 Sputum Gram Stain - Final 01/06/18 16:54 Sputum Sputum Culture - Final Pseudomonas aeruginosa [place] albicans 01/05/18 18:40 Stool Stool Culture - Final 01/04/18 10:49 Blood Blood Culture Gram Stain - Final 01/04/18 10:49 Blood Blood Culture - Final Coagulase Negative Staph 01/04/18 12:55 Urine,Voided Urine Culture - Final 01/04/18 10:50 Blood Blood Culture - Final Assessment and Plan (1) Acute exacerbation of chronic obstructive airways disease Current Visit: Yes Status: Acute Code(s): J44.1 - CHRONIC OBSTRUCTIVE PULMONARY DISEASE W (ACUTE) EXACERBATION SNOMED Code(s): 598852476 (2) Colitis Narrative/Plan: 82 year old man Who has a history of oxygen dependent COPD, has had difficulties with chronic pseudomonas infection and is on inhaled tobramycin therapy. He has been doing well without any significant hospitalizations for pneumonia since earlier this year. He over became more short of breath and also started to have some vague abdominal pain and multiple loose stools. With evidence of the positive C. difficile toxin the infectious diseases consultation was requested. There was also evidence of a possible blood culture laboratories now verified that this is a coagulase-negative staph and will not require further intervention. C. diff will be treated with oral vancomycin therapy, given the patient is ill enough to be hospitalized as the current recommendation. Literature review is performed and there is no significant data about inhaled tobramycin resulted in C. diff colitis. However the patient cannot recall any other antibiotic therapy within the last few months, but had multiple antibiotics earlier in the year. His response to therapy will be monitored, but is already feeling better this afternoon. We'll attempt to avoid other antibiotics at this time. If he can tolerate probiotic therapy would add. 01/07/2018 the patient is stable to improved, still having some loose stools and still feels poorly. His shortness of breath is about at baseline and is on his usual 5 L nasal cannula of oxygen. WBC had a significant change of the sputum production as of late. Remains very pleased with his inhaled tobramycin therapy and how this is certainly help his pulmonary status. We'll plan 10 days of vancomycin therapy 250 mg orally 4 times a day. We'll add Questran to the regimen to see if this can improve the bulk of his stools at may help him symptomatically. Attempting to avoid other antibiotic therapy at this time. We'll continue his usual inhaled tobramycin therapy. 01/13/2018 patient was doing slightly better but then stopped improving and counseling vancomycin therapy was transitioned to Dificid. He believes is feeling somewhat better. Still having 3-4 soft to loose stools per day which she is uncomfortable with. Fortunately sent having much abdominal pain. It appears slightly improved overall. A single dose of Imodium was requested and will monitor his response to try to reduce the frequency of his stools. Current Visit: Yes Status: Acute Code(s): K52.9 - NONINFECTIVE GASTROENTERITIS AND COLITIS, UNSPECIFIED SNOMED Code(s): 59455199
[2018-01-13] MEDS ORDERED: LOPERAMIDE 2 MG CAP PO STA (22:09)
[2018-01-14 00:03] LABS: Glucose,Whole Blood 163 mg/dL (75-99)
[2018-01-14] MEDS: IPRATROPIUM-ALBUTEROL 3 ML NEB INHALATION SCH ×6 (00:33→19:50)
[2018-01-14] MEDS: 1: MVI, ADULT NO.4 WITH VIT K 10 ML, TRACE (CONC-1ML/DOSE) 1 ML in AMINO ACID 4.25%-D10W IV SCH ×9 (05:25→17:43)
[2018-01-14] MEDS: INSULIN ASPART 100 UNIT/ML 1 ML 10 ML VIAL SQ SCH ×4 (05:26→17:42)
[2018-01-14 05:56] LABS: Glucose,Whole Blood 122 mg/dL (75-99)
[2018-01-14 06:18] LABS: Anion Gap -2 mmol/L; Blood Urea Nitrogen 25 mg/dL (9-20); Calcium 7.4 mg/dL (8.4-10.2); Carbon Dioxide 35 mmol/L (22-30); Chloride 97 mmol/L (98-107); Glucose 116 mg/dL (74-99); Magnesium 1.8 mg/dL (1.6-2.3); Potassium 4.3 mmol/L (3.5-5.1); Sodium 130 mmol/L (137-145)
[2018-01-14 06:46] LABS: Basophils % (A) 0 %; Eosinophils % (A) 0 %; HCT 32.6 % (39.0-53.0); HGB 10.5 gm/dL (13.0-17.5); Hypochromasia Slight; Lymphocytes # (A) 0.6 k/uL (1.0-4.8); Lymphocytes % (A) 6 %; MCHC 32.1 g/dL (31.0-37.0); MCV 90.4 fL (80.0-100.0); Mean Platelet Volume 8.5; Monocytes # (A) 0.3 k/uL (0-1.0); Monocytes % (A) 3 %; Neutrophils # (A) 8.9 k/uL (1.3-7.7); Neutrophils % (A) 90 %; Platelet Count 152 k/uL (150-450); RBC 3.61 m/uL (4.30-5.90); RDW 14.6 % (11.5-15.5); WBC 9.8 k/uL (3.8-10.6)
[2018-01-14] MEDS: FORMOTEROL FUMARATE 20 MCG/2 ML NEBU INHALATION SCH ×2 (08:22→19:49)
[2018-01-14] MEDS: BUDESONIDE 1 MG/2 ML NEBU INHALATION SCH ×2 (08:22→19:49)
[2018-01-14] MEDS: LACTOBACILLUS ACIDOPH & BULGAR 1 EACH PACKET PO SCH ×2 (08:29→20:32)
[2018-01-14] MEDS: busPIRone HCl 5 MG TAB PO SCH ×2 (08:29→20:31)
[2018-01-14] MEDS: NYSTATIN 100,000 UNIT/ML SUSP 500,000 UNIT/5 ML CUP PO SCH ×4 (08:29→20:31)
[2018-01-14] MEDS: CHOLESTYRAMINE (WITH SUGAR) 4 GM PACKET PO SCH ×4 (08:29→20:32)
[2018-01-14] MEDS: MULTIVITAMINS, THERA 1 EACH TAB PO SCH (08:29)
[2018-01-14] MEDS: HEPARIN SODIUM,PORCINE 5,000 UNIT/ML 1 ML VIAL SQ SCH ×2 (08:30→20:32)
[2018-01-14] MEDS: FIDAXOMICIN 200 MG TABLET PO SCH ×2 (08:30→20:31)
[2018-01-14] MEDS: FUROSEMIDE 10 MG/ML 4 ML VIAL IV SCH (08:30)
[2018-01-14] MEDS ORDERED: predniSONE 20 MG TAB PO SCH (09:00)
[2018-01-14] MEDS: MAGNESIUM SULFATE-D5W PMX 1 GM in DEXTROSE/WATER 1 100ML.BAG IVPB SCH ×2 (10:52→12:26)
--- NOTE | 2018-01-14 11:10 | P.PN ---
Subjective Progress Note Date: 01/14/18 82-year-old male resting in bed chief complaint this morning "feel very weak and tired. Patient states abdominal pain has significantly improved. No bowel movements this morning. 2 bowel movements last night states "they were only a small smear of stool last night no nausea no vomiting. Patient's diet has been advanced. C. diff colitis continues to improve Objective - Vital Signs Vital signs: Vital Signs Temp 98.0 F 01/14/18 08:00 Pulse 106 H 01/14/18 08:42 Resp 20 01/14/18 08:00 BP 119/56 01/14/18 08:00 Pulse Ox 96 01/14/18 08:00 Intake & Output 01/13/18 01/14/18 01/14/18 18:59 06:59 18:59 Intake Total 840 500 200 Output Total 3100 700 Balance -2260 500 -500 Weight 81 kg 80.6 kg Intake: Intake, IV Titration 500 Amount Amino Acid 4.25%-D10w+ 500 Lytes*E* 1,000 ml @ 104 mls/hr IV .BY [facility] Rx#:[id number] Oral 840 200 Output: Urine 3100 700 Other: Voiding Method Urinal Urinal # Bowel Movements 1 - Exam Physical exam 82-year-old male resting in bed appearing in no distress Lungs adequate air movement bilaterally no shortness breath noted Heart S1-S2 audible Abdomen soft nondistended nontender bowel tones present no nausea no vomiting nontender states no stool this morning but 2 small smears yesterday evening tolerating diet Extremities bilateral nonpitting edema below the knees down - Labs CBC & Chem 7: 01/14/18 05:49 01/14/18 05:49 Labs: Abnormal Lab Results - Last 24 Hours (Table) 01/13/18 01/13/18 01/13/18 Range/Units 11:01 16:34 20:49 RBC (4.30-5.90) m/uL Hgb (13.0-17.5) gm/dL Hct (39.0-53.0) % Neutrophils # (1.3-7.7) k/uL Lymphocytes # (1.0-4.8) k/uL Sodium (137-145) mmol/L Chloride (98-107) mmol/L Carbon Dioxide (22-30) mmol/L BUN (9-20) mg/dL Creatinine (0.66-1.25) mg/dL Glucose (74-99) mg/dL POC Glucose (mg/dL) 112 H 142 H 153 H (75-99) mg/dL Calcium (8.4-10.2) mg/dL 01/14/18 01/14/18 01/14/18 Range/Units 00:02 05:49 05:49 RBC 3.61 L (4.30-5.90) m/uL Hgb 10.5 L (13.0-17.5) gm/dL Hct 32.6 L (39.0-53.0) % Neutrophils # 8.9 H (1.3-7.7) k/uL Lymphocytes # 0.6 L (1.0-4.8) k/uL Sodium 130 L (137-145) mmol/L Chloride 97 L (98-107) mmol/L Carbon Dioxide 35 H (22-30) mmol/L BUN 25 H (9-20) mg/dL Creatinine 0.59 L (0.66-1.25) mg/dL Glucose 116 H (74-99) mg/dL POC Glucose (mg/dL) 163 H (75-99) mg/dL Calcium 7.4 L (8.4-10.2) mg/dL 01/14/18 Range/Units 05:54 RBC (4.30-5.90) m/uL Hgb (13.0-17.5) gm/dL Hct (39.0-53.0) % Neutrophils # (1.3-7.7) k/uL Lymphocytes # (1.0-4.8) k/uL Sodium (137-145) mmol/L Chloride (98-107) mmol/L Carbon Dioxide (22-30) mmol/L BUN (9-20) mg/dL Creatinine (0.66-1.25) mg/dL Glucose (74-99) mg/dL POC Glucose (mg/dL) 122 H (75-99) mg/dL Calcium (8.4-10.2) mg/dL Microbiology - Last 24 Hours (Table) 01/08/18 22:19 Blood Culture - Preliminary Blood No Growth after 120 hours 01/08/18 22:26 Blood Culture - Preliminary Blood No Growth after 120 hours Assessment and Plan Assessment: Impression C. diff colitis slowly improving History of prostate cancer with radiation treatment 2018 Acute exacerbation of COPD History of MRSA infection Present on admission leukocytosis trending down improving Plan Continue conservative treatment as ordered Continue recommendations per infectious disease Advance diet as tolerated Continue dificid 200 mg twice a day with Questran 4 g 4 times a day scheduled Will follow with you The above impression and plan of care have been discussed and directed by signing physician. Kelly Hendrix nurse practitioner acting as scribe for signing physician.
[2018-01-14 12:27] LABS: Glucose,Whole Blood 139 mg/dL (75-99)
[2018-01-14 17:09] LABS: Glucose,Whole Blood 144 mg/dL (75-99)
[2018-01-14] MEDS: CITALOPRAM HYDROBROMIDE 20 MG TAB PO SCH (20:31)
[2018-01-14] MEDS: TAMSULOSIN 0.4 MG CAP.ER.24H PO SCH (20:31)
[2018-01-14] MEDS: ASPIRIN 81 MG PO SCH (20:31)
[2018-01-14] MEDS: ATORVASTATIN 10 MG TAB PO SCH (20:32)
[2018-01-14] MEDS: MELATONIN 3 MG TABLET PO SCH (20:33)
--- NOTE | 2018-01-14 20:39 | P.PN ---
Subjective This is a pleasant 82 years old male whose past medical history including COPD, hyperlipidemia and prostate disorder. Patient is found to have C. diff, he has about 5 to both soft bowel movement. and history of Pseudomonas pneumonia diagnosed some time in April 2017 and is currently maintained on inhaled tobramycin every other month as per ID recommendations came to ER with complaints of abdominal pain and diarrhea. Patient did have diarrhea for the past 2 days and he did take Imodium at home. Patient does have nausea. No episodes of vomiting. 3-4 loose stools yesterday. Patient denied abdominal pain last night which has been getting worse and made him come to ER. Denied any hematemesis or melena. Denied any gross blood in the stool. Patient does have fever with T-max 100.9 on admission. Patient was tachycardic on admission. Patient was also having difficulty breathing while in the ER. Does have cough with whitish to light yellow sputum production. No change in color recently. Patient did see his doctor 2 days ago and was started on theophylline and steroids. Patient does have COPD oxygen dependent file it with another cannula. CT of the abdomen pelvis showed in the ER showed gross thickening of the colon including sigmoid colon and descending colon .. Consistent with infectious rather than intermittently colitis. Emphysematous changes as well as pulmonary fibrosis. Cholelithiasis and evidence of old granulomatous disease. Chest x-ray showed improved aeration and pulmonary fibrosis. EKG showed sinus tachycardia WBC 26.3 Lactic acid 3.7 Patient was started on antibiotics in the form of Levaquin and Flagyl. C. diff toxin was sent. 01/12/2018 Today patient was upset because he is nothing by mouth and he wanted to start fluid, clear liquid diet started and is okay with surgery. He agrees. aspiration precaution patient denies abdominal pain, he has about 4-5 bouts of diarrhea. No nausea or vomiting. Breathing is fine no chest pain. Vitas looks stable. Leukocytosis improvement from 25-14.8 K. Test of CBC and BMP were unremarkable except for low sodium at 130. Creatinine 0.6. Sugar is controlled. He remains on gentle hydration, as well as Lasix daily. He is on nystatin and Dificid antibiotic for his c diff .Continue with steroids. Surgical team are following the patient. 01/13/2018 pt looks more satisfied today compared to yesterday when i saw him , he tolerated his clear liquid diet and asks if can be advanced, we are going to give full liquid diet, no abd pain , no n/v , he had one large bowel movement last night and one large one this morning so far. dc iv fluid, pt has b/l leg edema , and penile swelling but no pain , we will check bladder scan as pt spoke about some difficutly with voinding. give iv lasix 40 mg. pt with no chest pain , dyspnea is mild , no cough , and wheezing is subsiding , we switch his iv steroid prdnisone to start taper. 01/14/2018 pt improving slowly and steadily , pt has only two bowel movement over the last two hours. pt is tolerated diet , and PPN will be lowered by 50%. his leg and scrotal swelling looking better and is able to pee more easily , pt is encourage to participate in physical therapy to facilitate his discharge . no more iv fluid . his wbc went down to normal.he is breating quietly , we will lower his steroid to 20 mg daily of prednisone. he is on lasix 40 mg iv daily . Objective - Vital Signs Vital signs: Vital Signs Temp 98.7 F 01/14/18 15:47 Pulse 106 H 01/14/18 20:11 Resp 20 01/14/18 15:47 BP 95/50 01/14/18 15:47 Pulse Ox 96 01/14/18 15:47 Intake & Output 01/14/18 01/14/18 01/15/18 06:59 18:59 06:59 Intake Total 1500 820 480 Output Total 1200 Balance 1500 -380 480 Weight 80.6 kg Intake: Intake, IV Titration 1500 Amount Amino Acid 4.25%-D10w+ 1500 Lytes*E* 1,000 ml @ 104 mls/hr IV .BY DURATION [facility] Rx#:[id number] Oral 820 480 Output: Urine 1200 Other: Voiding Method Urinal - Exam GENERAL: The patient is alert and oriented x3, not in any acute distress. somewhat emaciated HEENT: Pupils are round and equally reacting to light. EOMI. No scleral icterus. No conjunctival pallor. Normocephalic, atraumatic. No pharyngeal erythema. No thyromegaly. CARDIOVASCULAR: S1 and S2 present. No murmurs, rubs, or gallops. PULMONARY: Chest is clear to auscultation, no wheezing or crackles. ABDOMEN: Soft, nontender, nondistended, normoactive bowel sounds. No palpable organomegaly. MUSCULOSKELETAL: No joint swelling or deformity. -EXTREMITIES: No cyanosis, clubbing. pt has bilateral leg edema up to the knees. NEUROLOGICAL: Gross neurological examination did not reveal any focal deficits. SKIN: No rashes. - Labs CBC & Chem 7: 01/14/18 05:49 01/14/18 05:49 Labs: Abnormal Lab Results - Last 24 Hours (Table) 01/13/18 01/14/18 01/14/18 Range/Units 20:49 00:02 05:49 RBC (4.30-5.90) m/uL Hgb (13.0-17.5) gm/dL Hct (39.0-53.0) % Neutrophils # (1.3-7.7) k/uL Lymphocytes # (1.0-4.8) k/uL Sodium 130 L (137-145) mmol/L Chloride 97 L (98-107) mmol/L Carbon Dioxide 35 H (22-30) mmol/L BUN 25 H (9-20) mg/dL Creatinine 0.59 L (0.66-1.25) mg/dL Glucose 116 H (74-99) mg/dL POC Glucose (mg/dL) 153 H 163 H (75-99) mg/dL Calcium 7.4 L (8.4-10.2) mg/dL 01/14/18 01/14/18 01/14/18 Range/Units 05:49 05:54 12:07 RBC 3.61 L (4.30-5.90) m/uL Hgb 10.5 L (13.0-17.5) gm/dL Hct 32.6 L (39.0-53.0) % Neutrophils # 8.9 H (1.3-7.7) k/uL Lymphocytes # 0.6 L (1.0-4.8) k/uL Sodium (137-145) mmol/L Chloride (98-107) mmol/L Carbon Dioxide (22-30) mmol/L BUN (9-20) mg/dL Creatinine (0.66-1.25) mg/dL Glucose (74-99) mg/dL POC Glucose (mg/dL) 122 H 139 H (75-99) mg/dL Calcium (8.4-10.2) mg/dL 01/14/18 Range/Units 17:06 RBC (4.30-5.90) m/uL Hgb (13.0-17.5) gm/dL Hct (39.0-53.0) % Neutrophils # (1.3-7.7) k/uL Lymphocytes # (1.0-4.8) k/uL Sodium (137-145) mmol/L Chloride (98-107) mmol/L Carbon Dioxide (22-30) mmol/L BUN (9-20) mg/dL Creatinine (0.66-1.25) mg/dL Glucose (74-99) mg/dL POC Glucose (mg/dL) 144 H (75-99) mg/dL Calcium (8.4-10.2) mg/dL Microbiology - Last 24 Hours (Table) 01/08/18 22:19 Blood Culture - Preliminary Blood No Growth after 120 hours 01/08/18 22:26 Blood Culture - Preliminary Blood No Growth after 120 hours Assessment and Plan Assessment: c. diff colitis , still has ongoing diarrhea lactic acidosis secondary to sepsis COPD acute exacerbation with acute on chronic resp failure , pulmonary fibrosis scrotal swelling h/o prostate cancer with radiation therapy on 2018 h/o MRSA infection ascitis hyperlipidemia Plan: this is a pleasant 82 yo M who presents with c diff colitis, c/w antibiotic as per ID team , c/w PPN, start and advance diet as tolerated. continue with the same treatment , continue with symptomatic treatment , resume home medication , monitor lytes and vitals including glucose , c/w iv fluids, cardiology consult is appreciated. infectious disease consult is appreciated . c /w same antibioitc . GI and DVT prophylaxis , further recommendation based upon pt clinical course and progress DVT prophylaxis subcutaneous heparin GI prophylaxis Pepcid PT/OT: pending Prognosis is guarded
[2018-01-14] MEDS: ALPRAZolam 1 MG TAB PO PRN (20:40)
--- NOTE | 2018-01-14 21:14 | P.PN ---
Subjective Progress Note Date: 01/14/18 82-year-old male is well-known to the infectious disease service from his prior hospitalizations and office follow-up through the summer. The patient has a known history of advanced oxygen and occasionally steroid- dependent extremities be COPD, he was having frequent exacerbations and was with a [id number] pseudomonas aeruginosa. 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 He is becoming more short of breath he was having increasing weakness was having off and about 4 stools a day. Occasionally were watery but most of the time it was formed. He does relate to some crampy abdominal pain especially the left lower quadrant. He is not having nausea or emesis. He is having no hematemesis or melena or hematochezia. He does have fatigue and malaise. 01/07/2018 the patient is feeling about the same as he has had the last few days but the frequency of stools has improved slightly. Is not having fevers or trills. Does not have much abdominal pain. 01/13 2018 patient is now feeling just slightly better. He still having multiple loose stools per day. He was having ongoing significant diarrhea despite the vancomycin therapy was transitioned to Dificid. He believes he somewhat improved. Still having some ongoing diarrhea. He feels weak because of it. That is improved from admission. No fevers or chills. No nausea or emesis but appetite is somewhat poor. 01/14/2018 reveals the patient is feeling better, only one small space to stool occurred in the last day. He is having no abdominal pain. Appetite is adequate. No nausea or emesis. He sitting up in a chair showing is improved strength. Objective - Vital Signs Vital signs: Vital Signs Temp 99.3 F 01/14/18 20:00 Pulse 106 H 01/14/18 20:11 Resp 20 01/14/18 20:00 BP 113/59 01/14/18 20:00 Pulse Ox 96 01/14/18 20:00 Intake & Output 01/14/18 01/14/18 01/15/18 06:59 18:59 06:59 Intake Total 1500 820 490 Output Total 1200 350 Balance 1500 -380 140 Weight 80.6 kg Intake: IV 10 Invasive Line 9 10 Intake, IV Titration 1500 Amount Amino Acid 4.25%-D10w+ 1500 Lytes*E* 1,000 ml @ 104 mls/hr IV .BY DURATION PENDING SALE TO [facility] Rx#:[id number] Oral 820 480 Output: Urine 1200 350 Other: Voiding Method Urinal Urinal # Voids 1 - Exam 82-year-old male who is on oxygen at 5 L which is his baseline dose relates that he's feeling better since coming to hospital, short of breath at baseline improved diarrhea HEENT: Anicteric conjunctiva are pink and moist nasal mucosa grossly intact without significant lesions, there is no thrush. Neck: The neck is supple without significant lymphadenopathy or thyromegaly. Lungs: Symmetrical air entry is noted, rare expiratory wheezes are heard no blanca bronchial sounds dullness or egophony Heart: Regular rate and rhythm with an audible S1-S2, no S3 no S4. There is no significant murmur click or rub, PMI was nondisplaced. Abdomen: The abdomen is soft and nondistended, no palpable hepatosplenomegaly, no masses no guarding or rebound has minimal left lower quadrant tenderness Extremities: The upper extremities have excellent pulses they are symmetric, no significant petechiae or telangiectasia. No splinter hemorrhages were noted. The lower extremities are free from significant edema. The peripheral pulses were 2+ and symmetric. Neuro: Awake alert oriented to person place and time. There are no acute new gross focal sensory motor deficits. - Labs CBC & Chem 7: 01/14/18 05:49 01/14/18 05:49 Labs: Abnormal Lab Results - Last 24 Hours (Table) 01/14/18 01/14/18 01/14/18 Range/Units 00:02 05:49 05:49 RBC 3.61 L (4.30-5.90) m/uL Hgb 10.5 L (13.0-17.5) gm/dL Hct 32.6 L (39.0-53.0) % Neutrophils # 8.9 H (1.3-7.7) k/uL Lymphocytes # 0.6 L (1.0-4.8) k/uL Sodium 130 L (137-145) mmol/L Chloride 97 L (98-107) mmol/L Carbon Dioxide 35 H (22-30) mmol/L BUN 25 H (9-20) mg/dL Creatinine 0.59 L (0.66-1.25) mg/dL Glucose 116 H (74-99) mg/dL POC Glucose (mg/dL) 163 H (75-99) mg/dL Calcium 7.4 L (8.4-10.2) mg/dL 01/14/18 01/14/18 01/14/18 Range/Units 05:54 12:07 17:06 RBC (4.30-5.90) m/uL Hgb (13.0-17.5) gm/dL Hct (39.0-53.0) % Neutrophils # (1.3-7.7) k/uL Lymphocytes # (1.0-4.8) k/uL Sodium (137-145) mmol/L Chloride (98-107) mmol/L Carbon Dioxide (22-30) mmol/L BUN (9-20) mg/dL Creatinine (0.66-1.25) mg/dL Glucose (74-99) mg/dL POC Glucose (mg/dL) 122 H 139 H 144 H (75-99) mg/dL Calcium (8.4-10.2) mg/dL Microbiology - Last 24 Hours (Table) 01/08/18 22:19 Blood Culture - Preliminary Blood No Growth after 120 hours 01/08/18 22:26 Blood Culture - Preliminary Blood No Growth after 120 hours Laboratory Results WBC 9.8 k/uL (3.8-10.6) 01/14/18 05:49 RBC 3.61 m/uL (4.30-5.90) L 01/14/18 05:49 Hgb 10.5 gm/dL (13.0-17.5) L 01/14/18 05:49 Hct 32.6 % (39.0-53.0) L 01/14/18 05:49 MCV 90.4 fL (80.0-100.0) 01/14/18 05:49 MCH 29.0 pg (25.0-35.0) 01/14/18 05:49 MCHC 32.1 g/dL (31.0-37.0) 01/14/18 05:49 RDW 14.6 % (11.5-15.5) 01/14/18 05:49 Plt Count 152 k/uL (150-450) 01/14/18 05:49 Neutrophils % 90 % 01/14/18 05:49 Neutrophils % (Manual) 91 % 01/09/18 05:51 Band Neutrophils % 2 % 01/09/18 05:51 Lymphocytes % 6 % 01/14/18 05:49 Lymphocytes % (Manual) 5 % 01/09/18 05:51 Monocytes % 3 % 01/14/18 05:49 Monocytes % (Manual) 2 % 01/09/18 05:51 Eosinophils % 0 % 01/14/18 05:49 Basophils % 0 % 01/14/18 05:49 Myelocytes % 1 % 01/08/18 14:02 Neutrophils # 8.9 k/uL (1.3-7.7) H 01/14/18 05:49 Neutrophils # (Manual) 28.90 k/uL (1.3-7.7) H 01/09/18 05:51 Lymphocytes # 0.6 k/uL (1.0-4.8) L 01/14/18 05:49 Lymphocytes # (Manual) 1.56 k/uL (1.0-4.8) 01/09/18 05:51 Monocytes # 0.3 k/uL (0-1.0) 01/14/18 05:49 Monocytes # (Manual) 0.62 k/uL (0-1.0) 01/09/18 05:51 Eosinophils # 0.0 k/uL (0-0.7) 01/14/18 05:49 Basophils # 0.0 k/uL (0-0.2) 01/14/18 05:49 Myelocytes # (Manual) 0.33 k/uL (0) H 01/08/18 14:02 Nucleated RBCs 0 /100 WBC (0-0) 01/09/18 05:51 Manual Slide Review Performed 01/09/18 05:51 Toxic Granulation Present 01/08/18 14:02 Toxic Vacuolation Present 01/09/18 05:51 Large Platelets Present 01/08/18 14:02 Hypochromasia Slight 01/14/18 05:49 PT 9.9 sec (9.0-12.0) 01/04/18 10:50 INR 1.0 (<1.2) 01/04/18 10:50 APTT 24.3 sec (22.0-30.0) 01/04/18 10:50 Sodium 130 mmol/L (137-145) L 01/14/18 05:49 Potassium 4.3 mmol/L (3.5-5.1) 01/14/18 05:49 Chloride 97 mmol/L (98-107) L 01/14/18 05:49 Carbon Dioxide 35 mmol/L (22-30) H 01/14/18 05:49 Anion Gap -2 mmol/L 01/14/18 05:49 BUN 25 mg/dL (9-20) H 01/14/18 05:49 Creatinine 0.59 mg/dL (0.66-1.25) L 01/14/18 05:49 Est GFR (CKD-EPI)AfAm >90 (>60 ml/min/1.73 sqM) 01/14/18 05:49 Est GFR (CKD-EPI)NonAf >90 (>60 ml/min/1.73 sqM) 01/14/18 05:49 Glucose 116 mg/dL (74-99) H 01/14/18 05:49 POC Glucose (mg/dL) 144 mg/dL (75-99) H 01/14/18 17:06 POC Glu Buckle Strap Drum Operator Gwen Yeung 01/14/18 17:[address] Glu mg/dL 108 01/06/18 06:10 Hemoglobin A1c 5.4 % (4.0-6.0) 01/06/18 06:10 Lactic Ac Sepsis Rflx Y 01/09/18 06:14 Plasma Lactic Acid Giovanni 2.3 mmol/L (0.7-2.0) H* 01/09/18 09:37 Calcium 7.4 mg/dL (8.4-10.2) L 01/14/18 05:49 Ionized Calcium Perla 4.6 mg/dL (4.5-5.3) 01/11/18 08:27 Phosphorus 3.0 mg/dL (2.5-4.5) 01/14/18 05:49 Magnesium 1.8 mg/dL (1.6-2.3) 01/14/18 05:49 Total Bilirubin 0.4 mg/dL (0.2-1.3) 01/04/18 10:50 AST 28 U/L (17-59) 01/04/18 10:50 ALT 23 U/L (21-72) 01/04/18 10:50 Alkaline Phosphatase 80 U/L (38-126) 01/04/18 10:50 Total Protein 5.7 g/dL (6.3-8.2) L 01/04/18 10:50 Albumin 2.1 g/dL (3.5-5.0) L 01/10/18 06:19 Triglycerides 183 mg/dL (<150) H 01/10/18 06:19 Amylase 34 U/L (30-110) 01/04/18 10:50 Lipase 44 U/L (23-300) 01/04/18 10:50 Urine Color Yellow 01/04/18 12:55 Urine Appearance Clear (Clear) 01/04/18 12:55 Urine pH 5.5 (5.0-8.0) 01/04/18 12:55 Ur Specific Mora 1.043 (1.001-1.035) H 01/04/18 12:55 Urine Protein Trace (Negative) H 01/04/18 12:55 Urine Glucose (UA) Negative (Negative) 01/04/18 12:55 Urine Ketones Negative (Negative) 01/04/18 12:55 Urine Blood Negative (Negative) 01/04/18 12:55 Urine Nitrite Negative (Negative) 01/04/18 12:55 Urine Bilirubin Negative (Negative) 01/04/18 12:55 Urine Urobilinogen <2.0 mg/dL (<2.0) 01/04/18 12:55 Ur Leukocyte Esterase Negative (Negative) 01/04/18 12:55 Stool Lactoferrin POSITIVE (NEGATIVE) H 01/05/18 18:40 Theophylline 14.5 ug/mL 01/04/18 10:50 C. difficile (EIA) Intrp Positive (Negative) A 01/05/18 11:20 Microbiology 01/08/18 22:19 Blood Blood Culture - Preliminary No Growth after 120 hours 01/08/18 22:26 Blood Blood Culture - Preliminary No Growth after 120 hours 01/06/18 16:54 Sputum Gram Stain - Final 01/06/18 16:54 Sputum Sputum Culture - Final Pseudomonas aeruginosa [place] albicans 01/05/18 18:40 Stool Stool Culture - Final 01/04/18 10:49 Blood Blood Culture Gram Stain - Final 01/04/18 10:49 Blood Blood Culture - Final Coagulase Negative Staph 01/04/18 12:55 Urine,Voided Urine Culture - Final 01/04/18 10:50 Blood Blood Culture - Final Assessment and Plan (1) Acute exacerbation of chronic obstructive airways disease Current Visit: Yes Status: Acute Code(s): J44.1 - CHRONIC OBSTRUCTIVE PULMONARY DISEASE W (ACUTE) EXACERBATION SNOMED Code(s): 470497544 (2) Colitis Narrative/Plan: 82 year old man Who has a history of oxygen dependent COPD, has had difficulties with chronic pseudomonas infection and is on inhaled tobramycin therapy. He has been doing well without any significant hospitalizations for pneumonia since earlier this year. He over became more short of breath and also started to have some vague abdominal pain and multiple loose stools. With evidence of the positive C. difficile toxin the infectious diseases consultation was requested. There was also evidence of a possible blood culture laboratories now verified that this is a coagulase-negative staph and will not require further intervention. C. diff will be treated with oral vancomycin therapy, given the patient is ill enough to be hospitalized as the current recommendation. Literature review is performed and there is no significant data about inhaled tobramycin resulted in C. diff colitis. However the patient cannot recall any other antibiotic therapy within the last few months, but had multiple antibiotics earlier in the year. His response to therapy will be monitored, but is already feeling better this afternoon. We'll attempt to avoid other antibiotics at this time. If he can tolerate probiotic therapy would add. 01/07/2018 the patient is stable to improved, still having some loose stools and still feels poorly. His shortness of breath is about at baseline and is on his usual 5 L nasal cannula of oxygen. WBC had a significant change of the sputum production as of late. Remains very pleased with his inhaled tobramycin therapy and how this is certainly help his pulmonary status. We'll plan 10 days of vancomycin therapy 250 mg orally 4 times a day. We'll add Questran to the regimen to see if this can improve the bulk of his stools at may help him symptomatically. Attempting to avoid other antibiotic therapy at this time. We'll continue his usual inhaled tobramycin therapy. 01/13/2018 patient was doing slightly better but then stopped improving and counseling vancomycin therapy was transitioned to Dificid. He believes is feeling somewhat better. Still having 3-4 soft to loose stools per day which she is uncomfortable with. Fortunately sent having much abdominal pain. It appears slightly improved overall. A single dose of Imodium was requested and will monitor his response to try to reduce the frequency of his stools. 01/14/2018 reveals the patient to be feeling better today. One dose of Imodium was given to reduce the frequency and volume of the stool and has been effective. He's had no increase of abdominal pain and no abdominal distention. She's had no fever and feels considerably better at this time. It appears that Dificid is allowing improvement of his C. diff. His chronic COPD is at its baseline and evidence the chronic colonization with Pseudomonas is found that the patient does not have acute bronchial infection at this time. Would continue with his ROSI treatments once he is discharged. Current Visit: Yes Status: Acute Code(s): K52.9 - NONINFECTIVE GASTROENTERITIS AND COLITIS, UNSPECIFIED SNOMED Code(s): 81172851
[2018-01-14 23:54] LABS: Glucose,Whole Blood 132 mg/dL (75-99)
[2018-01-15] MEDS: IPRATROPIUM-ALBUTEROL 3 ML NEB INHALATION SCH ×7 (00:18→23:28)
[2018-01-15 06:17] LABS: Glucose,Whole Blood 104 mg/dL (75-99)
[2018-01-15] MEDS: INSULIN ASPART 100 UNIT/ML 1 ML 10 ML VIAL SQ SCH ×3 (06:56→12:08)
[2018-01-15 07:03] LABS: Anion Gap 1 mmol/L; Blood Urea Nitrogen 31 mg/dL (9-20); Calcium 7.2 mg/dL (8.4-10.2); Carbon Dioxide 36 mmol/L (22-30); Chloride 95 mmol/L (98-107); Glucose 97 mg/dL (74-99); Magnesium 2.1 mg/dL (1.6-2.3); Potassium 4.5 mmol/L (3.5-5.1); Sodium 132 mmol/L (137-145)
[2018-01-15] MEDS: BUDESONIDE 1 MG/2 ML NEBU INHALATION SCH ×2 (08:22→19:30)
[2018-01-15] MEDS: FORMOTEROL FUMARATE 20 MCG/2 ML NEBU INHALATION SCH ×2 (08:22→19:30)
[2018-01-15] MEDS: busPIRone HCl 5 MG TAB PO SCH ×2 (08:38→21:02)
[2018-01-15] MEDS: LACTOBACILLUS ACIDOPH & BULGAR 1 EACH PACKET PO SCH ×2 (08:38→21:02)
[2018-01-15] MEDS: FUROSEMIDE 10 MG/ML 4 ML VIAL IV SCH (08:38)
[2018-01-15] MEDS: HEPARIN SODIUM,PORCINE 5,000 UNIT/ML 1 ML VIAL SQ SCH ×2 (08:39→21:02)
[2018-01-15] MEDS: CHOLESTYRAMINE (WITH SUGAR) 4 GM PACKET PO SCH ×4 (08:39→21:10)
[2018-01-15] MEDS: FIDAXOMICIN 200 MG TABLET PO SCH ×2 (08:39→21:10)
[2018-01-15] MEDS: NYSTATIN 100,000 UNIT/ML SUSP 500,000 UNIT/5 ML CUP PO SCH ×4 (08:39→21:03)
[2018-01-15] MEDS: predniSONE 20 MG TAB PO SCH (08:46)
[2018-01-15] MEDS ORDERED: predniSONE 10 MG TAB PO SCH (09:00)
[2018-01-15 13:10] LABS: Appearance,Urine Clear (Clear); Bacteria,Urine Rare /hpf; Bilirubin,Urine Negative (Negative); Blood,Urine Trace (Negative); Color,Urine Colorless; Glucose,Urine (UA) Negative (Negative); Hyaline Casts,Urine 3 /lpf (0-2); Ketones,Urine Negative (Negative); Leukocyte Esterase,Urine Large (Negative); Mucus,Urine Rare /hpf; Nitrite,Urine Negative (Negative); Protein,Urine Negative (Negative); RBC,Urine 1 /hpf (0-5); Specific Gravity,Urine 1.006 (1.001-1.035); Squamous Epithelial Cell,Urine <1 /hpf (0-4); Urobilinogen,Urine <2.0 mg/dL (<2.0); WBC,Urine 1 /hpf (0-5)
--- NOTE | 2018-01-15 14:19 | P.PN ---
Subjective This is a pleasant 82 years old male whose past medical history including COPD, hyperlipidemia and prostate disorder. Patient is found to have C. diff, he has about 5 to both soft bowel movement. and history of Pseudomonas pneumonia diagnosed some time in April 2017 and is currently maintained on inhaled tobramycin every other month as per ID recommendations came to ER with complaints of abdominal pain and diarrhea. Patient did have diarrhea for the past 2 days and he did take Imodium at home. Patient does have nausea. No episodes of vomiting. 3-4 loose stools yesterday. Patient denied abdominal pain last night which has been getting worse and made him come to ER. Denied any hematemesis or melena. Denied any gross blood in the stool. Patient does have fever with T-max 100.9 on admission. Patient was tachycardic on admission. Patient was also having difficulty breathing while in the ER. Does have cough with whitish to light yellow sputum production. No change in color recently. Patient did see his doctor 2 days ago and was started on theophylline and steroids. Patient does have COPD oxygen dependent file it with another cannula. CT of the abdomen pelvis showed in the ER showed gross thickening of the colon including sigmoid colon and descending colon .. Consistent with infectious rather than intermittently colitis. Emphysematous changes as well as pulmonary fibrosis. Cholelithiasis and evidence of old granulomatous disease. Chest x-ray showed improved aeration and pulmonary fibrosis. EKG showed sinus tachycardia WBC 26.3 Lactic acid 3.7 Patient was started on antibiotics in the form of Levaquin and Flagyl. C. diff toxin was sent. 01/12/2018 Today patient was upset because he is nothing by mouth and he wanted to start fluid, clear liquid diet started and is okay with surgery. He agrees. aspiration precaution patient denies abdominal pain, he has about 4-5 bouts of diarrhea. No nausea or vomiting. Breathing is fine no chest pain. Vitas looks stable. Leukocytosis improvement from 25-14.8 K. Test of CBC and BMP were unremarkable except for low sodium at 130. Creatinine 0.6. Sugar is controlled. He remains on gentle hydration, as well as Lasix daily. He is on nystatin and Dificid antibiotic for his c diff .Continue with steroids. Surgical team are following the patient. 01/13/2018 pt looks more satisfied today compared to yesterday when i saw him , he tolerated his clear liquid diet and asks if can be advanced, we are going to give full liquid diet, no abd pain , no n/v , he had one large bowel movement last night and one large one this morning so far. dc iv fluid, pt has b/l leg edema , and penile swelling but no pain , we will check bladder scan as pt spoke about some difficutly with voinding. give iv lasix 40 mg. pt with no chest pain , dyspnea is mild , no cough , and wheezing is subsiding , we switch his iv steroid prdnisone to start taper. 01/14/2018 pt improving slowly and steadily , pt has only two bowel movement over the last two hours. pt is tolerated diet , and PPN will be lowered by 50%. his leg and scrotal swelling looking better and is able to pee more easily , pt is encourage to participate in physical therapy to facilitate his discharge . no more iv fluid . his wbc went down to normal.he is breating quietly , we will lower his steroid to 20 mg daily of prednisone. he is on lasix 40 mg iv daily . 01/15/2018 Patient is still having diarrhea, he had 3 loose bowel movement since yesterday , no nausea vomiting however PPN was held and advising diet. So it is coming down however patient complains from some suprapubic discomfort. Urine analysis will be sent. Little tachycardic but Vitas looks stable. Sodium is 132. Potassium 4.5. Objective - Vital Signs Vital signs: Vital Signs Temp 98.5 F 01/15/18 11:49 Pulse 92 01/15/18 11:49 Resp 17 01/15/18 11:50 BP 107/56 01/15/18 11:49 Pulse Ox 98 01/15/18 11:49 Intake & Output 01/14/18 01/15/18 01/15/18 18:59 06:59 18:59 Intake Total 820 510 420 Output Total 7694 210 8673 Balance -380 -40 -580 Weight 80.8 kg Intake: IV 30 20 Invasive Line 9 30 20 Oral 820 480 400 Output: Urine 3873 [id number] Other: Voiding Method Urinal Urinal # Voids 1 2 - Exam GENERAL: The patient is alert and oriented x3, not in any acute distress. somewhat emaciated HEENT: Pupils are round and equally reacting to light. EOMI. No scleral icterus. No conjunctival pallor. Normocephalic, atraumatic. No pharyngeal erythema. No thyromegaly. CARDIOVASCULAR: S1 and S2 present. No murmurs, rubs, or gallops. PULMONARY: Chest is clear to auscultation, no wheezing or crackles. ABDOMEN: Soft, nontender, nondistended, normoactive bowel sounds. No palpable organomegaly. MUSCULOSKELETAL: No joint swelling or deformity. -EXTREMITIES: No cyanosis, clubbing. pt has bilateral leg edema up to the knees. NEUROLOGICAL: Gross neurological examination did not reveal any focal deficits. SKIN: No rashes. - Labs CBC & Chem 7: 01/14/18 05:49 01/15/18 06:09 Labs: Abnormal Lab Results - Last 24 Hours (Table) 01/14/18 01/14/18 01/15/18 Range/Units 17:06 23:52 06:09 Sodium 132 L (137-145) mmol/L Chloride 95 L (98-107) mmol/L Carbon Dioxide 36 H (22-30) mmol/L BUN 31 H (9-20) mg/dL POC Glucose (mg/dL) 144 H 132 H (75-99) mg/dL Calcium 7.2 L (8.4-10.2) mg/dL Urine Blood (Negative) Ur Leukocyte Esterase (Negative) Urine Bacteria (None) /hpf Hyaline Casts (0-2) /lpf Urine Mucus (None) /hpf 01/15/18 01/15/18 Range/Units 06:15 11:47 Sodium (137-145) mmol/L Chloride (98-107) mmol/L Carbon Dioxide (22-30) mmol/L BUN (9-20) mg/dL POC Glucose (mg/dL) 104 H (75-99) mg/dL Calcium (8.4-10.2) mg/dL Urine Blood Trace H (Negative) Ur Leukocyte Esterase Large H (Negative) Urine Bacteria Rare H (None) /hpf Hyaline Casts 3 H (0-2) /lpf Urine Mucus Rare H (None) /hpf Microbiology - Last 24 Hours (Table) 01/08/18 22:19 Blood Culture - Final Blood No Growth after 144 hours 01/08/18 22:26 Blood Culture - Final Blood No Growth after 144 hours Assessment and Plan Assessment: c. diff colitis , still has ongoing diarrhea lactic acidosis secondary to sepsis COPD acute exacerbation with acute on chronic resp failure , pulmonary fibrosis scrotal swelling h/o prostate cancer with radiation therapy on 2018 h/o MRSA infection ascitis hyperlipidemia Plan: this is a pleasant 82 yo M who presents with c diff colitis, c/w antibiotic as per ID team , c/w PPN, start and advance diet as tolerated. continue with the same treatment , continue with symptomatic treatment , resume home medication , monitor lytes and vitals including glucose , c/w iv fluids, cardiology consult is appreciated. infectious disease consult is appreciated . c /w same antibioitc . GI and DVT prophylaxis , further recommendation based upon pt clinical course and progress DVT prophylaxis subcutaneous heparin GI prophylaxis Pepcid PT/OT: pending Prognosis is guarded
[2018-01-15] MEDS: MULTIVITAMINS, THERA 1 EACH TAB PO SCH (15:55)
--- NOTE | 2018-01-15 16:43 | P.PN ---
Subjective Progress Note Date: 01/15/18 82-year-old being seen resting in bed. Patient stated that he was incontinent of a large amount of liquid stool this morning. Had no abdominal pain. Appetite improving. States he has been sitting up in a chair and does feels slightly stronger. Objective - Vital Signs Vital signs: Vital Signs Temp 98.5 F 01/15/18 11:49 Pulse 93 01/15/18 15:23 Resp 17 01/15/18 11:50 BP 107/56 01/15/18 11:49 Pulse Ox 98 01/15/18 11:49 Intake & Output 01/14/18 01/15/18 01/15/18 18:59 06:59 18:59 Intake Total 820 510 420 Output Total 7842 736 7709 Balance -380 -40 -580 Weight 80.8 kg Intake: IV 30 20 Invasive Line 9 30 20 Oral 820 480 400 Output: Urine 6493 911 4425 Other: Voiding Method Urinal Urinal # Voids 1 2 - Exam Physical exam 82-year-old male resting in bed appears in no acute distress Lungs adequate air movement bilaterally Heart S1-S2 audible regular Abdomen nontender tones no abdominal pain appetite improving no nausea no vomiting 2 stools today less watery No edema noted to the extremity - Labs CBC & Chem 7: 01/14/18 05:49 01/15/18 06:09 Labs: Abnormal Lab Results - Last 24 Hours (Table) 01/14/18 01/14/18 01/15/18 Range/Units 17:06 23:52 06:09 Sodium 132 L (137-145) mmol/L Chloride 95 L (98-107) mmol/L Carbon Dioxide 36 H (22-30) mmol/L BUN 31 H (9-20) mg/dL POC Glucose (mg/dL) 144 H 132 H (75-99) mg/dL Calcium 7.2 L (8.4-10.2) mg/dL Urine Blood (Negative) Ur Leukocyte Esterase (Negative) Urine Bacteria (None) /hpf Hyaline Casts (0-2) /lpf Urine Mucus (None) /hpf 01/15/18 01/15/18 Range/Units 06:15 11:47 Sodium (137-145) mmol/L Chloride (98-107) mmol/L Carbon Dioxide (22-30) mmol/L BUN (9-20) mg/dL POC Glucose (mg/dL) 104 H (75-99) mg/dL Calcium (8.4-10.2) mg/dL Urine Blood Trace H (Negative) Ur Leukocyte Esterase Large H (Negative) Urine Bacteria Rare H (None) /hpf Hyaline Casts 3 H (0-2) /lpf Urine Mucus Rare H (None) /hpf Microbiology - Last 24 Hours (Table) 01/08/18 22:19 Blood Culture - Final Blood No Growth after 144 hours 01/08/18 22:26 Blood Culture - Final Blood No Growth after 144 hours Assessment and Plan Assessment: Impression C. diff colitis slowly improving History of prostate cancer with radiation treatment 2017 Acute exacerbation of COPD History of MRSA infection Present on admission leukocytosis trending down improving Plan Continue conservative treatment as ordered Continue recommendations per infectious disease Advance diet as tolerated Continue dificid 200 mg twice a day with Questran 4 g 4 times a day scheduled Will follow with you No evidence of an acute surgical abdomen The above impression and plan of care have been discussed and directed by signing physician. Kelly Hendrix nurse practitioner acting as scribe for signing physician.
[2018-01-15] MEDS: ASPIRIN 81 MG PO SCH (21:01)
[2018-01-15] MEDS: ATORVASTATIN 10 MG TAB PO SCH (21:02)
[2018-01-15] MEDS: MELATONIN 3 MG TABLET PO SCH (21:02)
[2018-01-15] MEDS: TAMSULOSIN 0.4 MG CAP.ER.24H PO SCH (21:02)
[2018-01-15] MEDS: CITALOPRAM HYDROBROMIDE 20 MG TAB PO SCH (21:02)
[2018-01-15] MEDS: ALPRAZolam 1 MG TAB PO PRN (21:10)
--- NOTE | 2018-01-15 22:27 | P.PN ---
Subjective Progress Note Date: 01/15/18 82-year-old male is well-known to the infectious disease service from his prior hospitalizations and office follow-up through the summer. The patient has a known history of advanced oxygen and occasionally steroid- dependent extremities be COPD, he was having frequent exacerbations and was with a [id number] pseudomonas aeruginosa. 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 He is becoming more short of breath he was having increasing weakness was having off and about 4 stools a day. Occasionally were watery but most of the time it was formed. He does relate to some crampy abdominal pain especially the left lower quadrant. He is not having nausea or emesis. He is having no hematemesis or melena or hematochezia. He does have fatigue and malaise. 01/07/2018 the patient is feeling about the same as he has had the last few days but the frequency of stools has improved slightly. Is not having fevers or trills. Does not have much abdominal pain. 01/13 2018 patient is now feeling just slightly better. He still having multiple loose stools per day. He was having ongoing significant diarrhea despite the vancomycin therapy was transitioned to Dificid. He believes he somewhat improved. Still having some ongoing diarrhea. He feels weak because of it. That is improved from admission. No fevers or chills. No nausea or emesis but appetite is somewhat poor. 01/14/2018 reveals the patient is feeling better, only one small space to stool occurred in the last day. He is having no abdominal pain. Appetite is adequate. No nausea or emesis. He sitting up in a chair showing is improved strength. 01/15/2018 patient continues to feel better had 1 semi-formed stool today however he was incontinent with that stool. He's eating well. Having no abdominal pain. No nausea or emesis. Weakness is improved. Up with a therapist getting to the chair today without difficulty. Objective - Vital Signs Vital signs: Vital Signs Temp 99.0 F 01/15/18 20:58 Pulse 107 H 01/15/18 20:58 Resp 16 01/15/18 20:58 BP 101/51 01/15/18 20:58 Pulse Ox 96 01/15/18 20:58 Intake & Output 01/15/18 01/15/18 01/16/18 06:59 18:59 06:59 Intake Total 510 430 Output Total 550 1000 200 Balance -40 -570 -200 Weight 80.8 kg Intake: IV 30 30 Invasive Line 9 30 30 Oral 480 400 Output: Urine 550 1000 200 Other: Voiding Method Urinal Urinal Urinal # Voids 1 2 1 - Exam 82-year-old male who is on oxygen at 5 L which is his baseline dose relates that he's feeling better since coming to hospital, short of breath at baseline improved diarrhea HEENT: Anicteric conjunctiva are pink and moist nasal mucosa grossly intact without significant lesions, there is no thrush. Neck: The neck is supple without significant lymphadenopathy or thyromegaly. Lungs: Symmetrical air entry is noted, rare expiratory wheezes are heard no blanca bronchial sounds dullness or egophony Heart: Regular rate and rhythm with an audible S1-S2, no S3 no S4. There is no significant murmur click or rub, PMI was nondisplaced. Abdomen: The abdomen is soft and nondistended, no palpable hepatosplenomegaly, no masses no guarding or rebound has minimal left lower quadrant tenderness Extremities: The upper extremities have excellent pulses they are symmetric, no significant petechiae or telangiectasia. No splinter hemorrhages were noted. The lower extremities are free from significant edema. The peripheral pulses were 2+ and symmetric. Neuro: Awake alert oriented to person place and time. There are no acute new gross focal sensory motor deficits. - Labs CBC & Chem 7: 01/14/18 05:49 01/15/18 06:09 Labs: Abnormal Lab Results - Last 24 Hours (Table) 01/14/18 01/15/18 01/15/18 Range/Units 23:52 06:09 06:15 Sodium 132 L (137-145) mmol/L Chloride 95 L (98-107) mmol/L Carbon Dioxide 36 H (22-30) mmol/L BUN 31 H (9-20) mg/dL POC Glucose (mg/dL) 132 H 104 H (75-99) mg/dL Calcium 7.2 L (8.4-10.2) mg/dL Urine Blood (Negative) Ur Leukocyte Esterase (Negative) Urine Bacteria (None) /hpf Hyaline Casts (0-2) /lpf Urine Mucus (None) /hpf 01/15/18 Range/Units 11:47 Sodium (137-145) mmol/L Chloride (98-107) mmol/L Carbon Dioxide (22-30) mmol/L BUN (9-20) mg/dL POC Glucose (mg/dL) (75-99) mg/dL Calcium (8.4-10.2) mg/dL Urine Blood Trace H (Negative) Ur Leukocyte Esterase Large H (Negative) Urine Bacteria Rare H (None) /hpf Hyaline Casts 3 H (0-2) /lpf Urine Mucus Rare H (None) /hpf Microbiology - Last 24 Hours (Table) 01/08/18 22:19 Blood Culture - Final Blood No Growth after 144 hours 01/08/18 22:26 Blood Culture - Final Blood No Growth after 144 hours Laboratory Results WBC 9.8 k/uL (3.8-10.6) 01/14/18 05:49 RBC 3.61 m/uL (4.30-5.90) L 01/14/18 05:49 Hgb 10.5 gm/dL (13.0-17.5) L 01/14/18 05:49 Hct 32.6 % (39.0-53.0) L 01/14/18 05:49 MCV 90.4 fL (80.0-100.0) 01/14/18 05:49 MCH 29.0 pg (25.0-35.0) 01/14/18 05:49 MCHC 32.1 g/dL (31.0-37.0) 01/14/18 05:49 RDW 14.6 % (11.5-15.5) 01/14/18 05:49 Plt Count 152 k/uL (150-450) 01/14/18 05:49 Neutrophils % 90 % 01/14/18 05:49 Neutrophils % (Manual) 91 % 01/09/18 05:51 Band Neutrophils % 2 % 01/09/18 05:51 Lymphocytes % 6 % 01/14/18 05:49 Lymphocytes % (Manual) 5 % 01/09/18 05:51 Monocytes % 3 % 01/14/18 05:49 Monocytes % (Manual) 2 % 01/09/18 05:51 Eosinophils % 0 % 01/14/18 05:49 Basophils % 0 % 01/14/18 05:49 Myelocytes % 1 % 01/08/18 14:02 Neutrophils # 8.9 k/uL (1.3-7.7) H 01/14/18 05:49 Neutrophils # (Manual) 28.90 k/uL (1.3-7.7) H 01/09/18 05:51 Lymphocytes # 0.6 k/uL (1.0-4.8) L 01/14/18 05:49 Lymphocytes # (Manual) 1.56 k/uL (1.0-4.8) 01/09/18 05:51 Monocytes # 0.3 k/uL (0-1.0) 01/14/18 05:49 Monocytes # (Manual) 0.62 k/uL (0-1.0) 01/09/18 05:51 Eosinophils # 0.0 k/uL (0-0.7) 01/14/18 05:49 Basophils # 0.0 k/uL (0-0.2) 01/14/18 05:49 Myelocytes # (Manual) 0.33 k/uL (0) H 01/08/18 14:02 Nucleated RBCs 0 /100 WBC (0-0) 01/09/18 05:51 Manual Slide Review Performed 01/09/18 05:51 Toxic Granulation Present 01/08/18 14:02 Toxic Vacuolation Present 01/09/18 05:51 Large Platelets Present 01/08/18 14:02 Hypochromasia Slight 01/14/18 05:49 PT 9.9 sec (9.0-12.0) 01/04/18 10:50 INR 1.0 (<1.2) 01/04/18 10:50 APTT 24.3 sec (22.0-30.0) 01/04/18 10:50 Sodium 132 mmol/L (137-145) L 01/15/18 06:09 Potassium 4.5 mmol/L (3.5-5.1) 01/15/18 06:09 Chloride 95 mmol/L (98-107) L 01/15/18 06:09 Carbon Dioxide 36 mmol/L (22-30) H 01/15/18 06:09 Anion Gap 1 mmol/L 01/15/18 06:09 BUN 31 mg/dL (9-20) H 01/15/18 06:09 Creatinine 0.71 mg/dL (0.66-1.25) 01/15/18 06:09 Est GFR (CKD-EPI)AfAm >90 (>60 ml/min/1.73 sqM) 01/15/18 06:09 Est GFR (CKD-EPI)NonAf 88 (>60 ml/min/1.73 sqM) 01/15/18 06:09 Glucose 97 mg/dL (74-99) 01/15/18 06:09 POC Glucose (mg/dL) 104 mg/dL (75-99) H 01/15/18 06:15 POC Glu Network Strategist ID Gurpreet Navarro 01/15/18 06:[address] Glu mg/dL 108 01/06/18 06:10 Hemoglobin A1c 5.4 % (4.0-6.0) 01/06/18 06:10 Lactic Ac Sepsis Rflx Y 01/09/18 06:14 Plasma Lactic Acid Giovanni 2.3 mmol/L (0.7-2.0) H* 01/09/18 09:37 Calcium 7.2 mg/dL (8.4-10.2) L 01/15/18 06:09 Ionized Calcium [place] 4.6 mg/dL (4.5-5.3) 01/11/18 08:27 Phosphorus 3.0 mg/dL (2.5-4.5) 01/14/18 05:49 Magnesium 2.1 mg/dL (1.6-2.3) 01/15/18 06:09 Total Bilirubin 0.4 mg/dL (0.2-1.3) 01/04/18 10:50 AST 28 U/L (17-59) 01/04/18 10:50 ALT 23 U/L (21-72) 01/04/18 10:50 Alkaline Phosphatase 80 U/L (38-126) 01/04/18 10:50 Total Protein 5.7 g/dL (6.3-8.2) L 01/04/18 10:50 Albumin 2.1 g/dL (3.5-5.0) L 01/10/18 06:19 Triglycerides 183 mg/dL (<150) H 01/10/18 06:19 Amylase 34 U/L (30-110) 01/04/18 10:50 Lipase 44 U/L (23-300) 01/04/18 10:50 Urine Color Colorless 01/15/18 11:47 Urine Appearance Clear (Clear) 01/15/18 11:47 Urine pH 5.0 (5.0-8.0) 01/15/18 11:47 Ur Specific [place] 1.006 (1.001-1.035) 01/15/18 11:47 Urine Protein Negative (Negative) 01/15/18 11:47 Urine Glucose (UA) Negative (Negative) 01/15/18 11:47 Urine Ketones Negative (Negative) 01/15/18 11:47 Urine Blood Trace (Negative) H 01/15/18 11:47 Urine Nitrite Negative (Negative) 01/15/18 11:47 Urine Bilirubin Negative (Negative) 01/15/18 11:47 Urine Urobilinogen <2.0 mg/dL (<2.0) 01/15/18 11:47 Ur Leukocyte Esterase Large (Negative) H 01/15/18 11:47 Urine RBC 1 /hpf (0-5) 01/15/18 11:47 Urine WBC 1 /hpf (0-5) 01/15/18 11:47 Ur Squamous Epith Cells <1 /hpf (0-4) 01/15/18 11:47 Urine Bacteria Rare /hpf (None) H 01/15/18 11:47 Hyaline Casts 3 /lpf (0-2) H 01/15/18 11:47 Urine Mucus Rare /hpf (None) H 01/15/18 11:47 Stool Lactoferrin POSITIVE (NEGATIVE) H 01/05/18 18:40 Theophylline 14.5 ug/mL 01/04/18 10:50 C. difficile (EIA) Intrp Positive (Negative) A 01/05/18 11:20 Microbiology 01/08/18 22:19 Blood Blood Culture - Final No Growth after 144 hours 01/08/18 22:26 Blood Blood Culture - Final No Growth after 144 hours 01/06/18 16:54 Sputum Gram Stain - Final 01/06/18 16:54 Sputum Sputum Culture - Final Pseudomonas aeruginosa [place] albicans 01/05/18 18:40 Stool Stool Culture - Final 01/04/18 10:49 Blood Blood Culture Gram Stain - Final 01/04/18 10:49 Blood Blood Culture - Final Coagulase Negative Staph 01/04/18 12:55 Urine,Voided Urine Culture - Final 01/04/18 10:50 Blood Blood Culture - Final Assessment and Plan (1) Acute exacerbation of chronic obstructive airways disease Current Visit: Yes Status: Acute Code(s): J44.1 - CHRONIC OBSTRUCTIVE PULMONARY DISEASE W (ACUTE) EXACERBATION SNOMED Code(s): 658969750 (2) Colitis Narrative/Plan: 82 year old man Who has a history of oxygen dependent COPD, has had difficulties with chronic pseudomonas infection and is on inhaled tobramycin therapy. He has been doing well without any significant hospitalizations for pneumonia since earlier this year. He over became more short of breath and also started to have some vague abdominal pain and multiple loose stools. With evidence of the positive C. difficile toxin the infectious diseases consultation was requested. There was also evidence of a possible blood culture laboratories now verified that this is a coagulase-negative staph and will not require further intervention. C. diff will be treated with oral vancomycin therapy, given the patient is ill enough to be hospitalized as the current recommendation. Literature review is performed and there is no significant data about inhaled tobramycin resulted in C. diff colitis. However the patient cannot recall any other antibiotic therapy within the last few months, but had multiple antibiotics earlier in the year. His response to therapy will be monitored, but is already feeling better this afternoon. We'll attempt to avoid other antibiotics at this time. If he can tolerate probiotic therapy would add. 01/07/2018 the patient is stable to improved, still having some loose stools and still feels poorly. His shortness of breath is about at baseline and is on his usual 5 L nasal cannula of oxygen. WBC had a significant change of the sputum production as of late. Remains very pleased with his inhaled tobramycin therapy and how this is certainly help his pulmonary status. We'll plan 10 days of vancomycin therapy 250 mg orally 4 times a day. We'll add Questran to the regimen to see if this can improve the bulk of his stools at may help him symptomatically. Attempting to avoid other antibiotic therapy at this time. We'll continue his usual inhaled tobramycin therapy. 01/13/2018 patient was doing slightly better but then stopped improving and counseling vancomycin therapy was transitioned to Dificid. He believes is feeling somewhat better. Still having 3-4 soft to loose stools per day which she is uncomfortable with. Fortunately sent having much abdominal pain. It appears slightly improved overall. A single dose of Imodium was requested and will monitor his response to try to reduce the frequency of his stools. 01/14/2018 reveals the patient to be feeling better today. One dose of Imodium was given to reduce the frequency and volume of the stool and has been effective. He's had no increase of abdominal pain and no abdominal distention. She's had no fever and feels considerably better at this time. It appears that Dificid is allowing improvement of his C. diff. His chronic COPD is at its baseline and evidence the chronic colonization with Pseudomonas is found that the patient does not have acute bronchial infection at this time. Would continue with his ROSI treatments once he is discharged. 01/07/2018 patient continues to feel much better. He's had 1 stool today it was mostly formed but incontinent. He is able to get up and nameplate within the room. He is not having pain. No fevers or chills. No abdominal pain with an adequate appetite. He is improving and plan for discharge is in process. Other than Dificid will be on no antimicrobials at home except for his inhaled ROSI per its schedule. Current Visit: Yes Status: Acute Code(s): K52.9 - NONINFECTIVE GASTROENTERITIS AND COLITIS, UNSPECIFIED SNOMED Code(s): 64989864
[2018-01-16] MEDS: IPRATROPIUM-ALBUTEROL 3 ML NEB INHALATION SCH ×5 (03:12→19:23)
[2018-01-16] MEDS: BUDESONIDE 1 MG/2 ML NEBU INHALATION SCH ×2 (07:13→19:22)
[2018-01-16] MEDS: FORMOTEROL FUMARATE 20 MCG/2 ML NEBU INHALATION SCH ×2 (07:13→19:22)
[2018-01-16 07:38] LABS: Anion Gap -1 mmol/L; Blood Urea Nitrogen 32 mg/dL (9-20); Calcium 7.1 mg/dL (8.4-10.2); Carbon Dioxide 40 mmol/L (22-30); Chloride 92 mmol/L (98-107); Glucose 94 mg/dL (74-99); Potassium 4.6 mmol/L (3.5-5.1); Sodium 131 mmol/L (137-145)
[2018-01-16 10:24] VITALS: BMI 25.2
[2018-01-16] MEDS: HEPARIN SODIUM,PORCINE 5,000 UNIT/ML 1 ML VIAL SQ SCH ×2 (10:28→21:01)
[2018-01-16] MEDS: CHOLESTYRAMINE (WITH SUGAR) 4 GM PACKET PO SCH ×4 (10:28→22:47)
[2018-01-16] MEDS: FUROSEMIDE 10 MG/ML 4 ML VIAL IV SCH (10:28)
[2018-01-16] MEDS: FIDAXOMICIN 200 MG TABLET PO SCH ×2 (10:28→21:01)
[2018-01-16] MEDS: NYSTATIN 100,000 UNIT/ML SUSP 500,000 UNIT/5 ML CUP PO SCH ×4 (10:29→22:47)
[2018-01-16] MEDS: predniSONE 20 MG TAB PO SCH (10:29)
[2018-01-16] MEDS: busPIRone HCl 5 MG TAB PO SCH ×2 (10:29→21:17)
[2018-01-16] MEDS: LACTOBACILLUS ACIDOPH & BULGAR 1 EACH PACKET PO SCH ×2 (10:29→20:58)
[2018-01-16] MEDS: MULTIVITAMINS, THERA 1 EACH TAB PO SCH (12:29)
[2018-01-16 13:05] VITALS: RESP 18
--- NOTE | 2018-01-16 13:44 | P.PN ---
Subjective This is a pleasant 82 years old male whose past medical history including COPD, hyperlipidemia and prostate disorder. Patient is found to have C. diff, he has about 5 to both soft bowel movement. and history of Pseudomonas pneumonia diagnosed some time in April 2017 and is currently maintained on inhaled tobramycin every other month as per ID recommendations came to ER with complaints of abdominal pain and diarrhea. Patient did have diarrhea for the past 2 days and he did take Imodium at home. Patient does have nausea. No episodes of vomiting. 3-4 loose stools yesterday. Patient denied abdominal pain last night which has been getting worse and made him come to ER. Denied any hematemesis or melena. Denied any gross blood in the stool. Patient does have fever with T-max 100.9 on admission. Patient was tachycardic on admission. Patient was also having difficulty breathing while in the ER. Does have cough with whitish to light yellow sputum production. No change in color recently. Patient did see his doctor 2 days ago and was started on theophylline and steroids. Patient does have COPD oxygen dependent file it with another cannula. CT of the abdomen pelvis showed in the ER showed gross thickening of the colon including sigmoid colon and descending colon .. Consistent with infectious rather than intermittently colitis. Emphysematous changes as well as pulmonary fibrosis. Cholelithiasis and evidence of old granulomatous disease. Chest x-ray showed improved aeration and pulmonary fibrosis. EKG showed sinus tachycardia WBC 26.3 Lactic acid 3.7 Patient was started on antibiotics in the form of Levaquin and Flagyl. C. diff toxin was sent. 01/12/2018 Today patient was upset because he is nothing by mouth and he wanted to start fluid, clear liquid diet started and is okay with surgery. He agrees. aspiration precaution patient denies abdominal pain, he has about 4-5 bouts of diarrhea. No nausea or vomiting. Breathing is fine no chest pain. Vitas looks stable. Leukocytosis improvement from 25-14.8 K. Test of CBC and BMP were unremarkable except for low sodium at 130. Creatinine 0.6. Sugar is controlled. He remains on gentle hydration, as well as Lasix daily. He is on nystatin and Dificid antibiotic for his c diff .Continue with steroids. Surgical team are following the patient. 01/13/2018 pt looks more satisfied today compared to yesterday when i saw him , he tolerated his clear liquid diet and asks if can be advanced, we are going to give full liquid diet, no abd pain , no n/v , he had one large bowel movement last night and one large one this morning so far. dc iv fluid, pt has b/l leg edema , and penile swelling but no pain , we will check bladder scan as pt spoke about some difficutly with voinding. give iv lasix 40 mg. pt with no chest pain , dyspnea is mild , no cough , and wheezing is subsiding , we switch his iv steroid prdnisone to start taper. 01/14/2018 pt improving slowly and steadily , pt has only two bowel movement over the last two hours. pt is tolerated diet , and PPN will be lowered by 50%. his leg and scrotal swelling looking better and is able to pee more easily , pt is encourage to participate in physical therapy to facilitate his discharge . no more iv fluid . his wbc went down to normal.he is breating quietly , we will lower his steroid to 20 mg daily of prednisone. he is on lasix 40 mg iv daily . 01/15/2018 Patient is still having diarrhea, he had 3 loose bowel movement since yesterday , no nausea vomiting however PPN was held and advising diet. So it is coming down however patient complains from some suprapubic discomfort. Urine analysis will be sent. Little tachycardic but Vitas looks stable. Sodium is 132. Potassium 4.5. 01/16/2018 Patient is having only 3 bowel movements in the last 24 hours, since yesterday his bowel movement became semisolid compared to what [place] before. He denies abdominal pain or nausea vomiting. He is tolerating his diet well. Patient states his without wheezing react at baseline he uses 10 mg of prednisone at home, currently is on the 20 mg of prednisone. Also he states his at home oxygen Objective - Vital Signs Vital signs: Vital Signs Temp 97.7 F 01/16/18 08:00 Pulse 101 H 01/16/18 12:00 Resp 18 01/16/18 12:00 BP 121/56 01/16/18 12:00 Pulse Ox 96 01/16/18 12:00 Intake & Output 01/15/18 01/16/18 01/16/18 18:59 06:59 18:59 Intake Total 430 300 Output Total 1000 500 Balance -570 -500 300 Weight 79.8 kg 79.8 kg Intake: IV 30 Invasive Line 9 30 Oral 400 300 Output: Urine 1000 500 Other: Voiding Method Urinal Urinal # Voids 2 1 # Bowel Movements 1 - Exam GENERAL: The patient is alert and oriented x3, not in any acute distress. somewhat emaciated HEENT: Pupils are round and equally reacting to light. EOMI. No scleral icterus. No conjunctival pallor. Normocephalic, atraumatic. No pharyngeal erythema. No thyromegaly. CARDIOVASCULAR: S1 and S2 present. No murmurs, rubs, or gallops. PULMONARY: Chest is clear to auscultation, no wheezing or crackles. ABDOMEN: Soft, nontender, nondistended, normoactive bowel sounds. No palpable organomegaly. MUSCULOSKELETAL: No joint swelling or deformity. -EXTREMITIES: No cyanosis, clubbing. pt has bilateral leg edema up to the knees. NEUROLOGICAL: Gross neurological examination did not reveal any focal deficits. SKIN: No rashes. - Labs CBC & Chem 7: 01/14/18 05:49 01/16/18 06:59 Labs: Abnormal Lab Results - Last 24 Hours (Table) 01/16/18 Range/Units 06:59 Sodium 131 L (137-145) mmol/L Chloride 92 L (98-107) mmol/L Carbon Dioxide 40 H (22-30) mmol/L BUN 32 H (9-20) mg/dL Calcium 7.1 L (8.4-10.2) mg/dL Assessment and Plan Assessment: c. diff colitis , still has ongoing diarrhea lactic acidosis secondary to sepsis COPD acute exacerbation with acute on chronic resp failure , pulmonary fibrosis scrotal swelling h/o prostate cancer with radiation therapy on 2018 h/o MRSA infection ascitis hyperlipidemia Plan: this is a pleasant 82 yo M who presents with c diff colitis, c/w antibiotic as per ID team , c/w PPN, start and advance diet as tolerated. continue with the same treatment , continue with symptomatic treatment , resume home medication , monitor lytes and vitals including glucose , c/w iv fluids, cardiology consult is appreciated. infectious disease consult is appreciated . c /w same antibioitc . GI and DVT prophylaxis , further recommendation based upon pt clinical course and progress DVT prophylaxis subcutaneous heparin GI prophylaxis Pepcid PT/OT: pending Prognosis is guarded
--- NOTE | 2018-01-16 14:12 | CDI ---
Last Revision, January 2017 Documentation Clarification Form Date: 01/16/18 From: Brittany Darby RN Admit Date: 01/04/2018 12:26:00 PM Patient Name: Dev Wesley Visit Number: [id number] ATTENTION: The Clinical Documentation Specialists (CDI) and [facility] Coding Staff appreciate your assistance in clarifying documentation. Please respond to the clarification below the line at the bottom and electronically sign. The CDI & [facility] Coding staff will review the response and follow-up if needed. Please note: Queries are made part of the Legal Health Record. If you have any questions, please contact the author of this message via ITS. William Concepcion MD, Can you please render your opinion on the following documentation? Patient presented with shortness of breath, and mild abdominal pain. Admitted with sepsis secondary to infectious colitis and acute exacerbation of COPD. History/Risk Factors: COPD, hyperlipidemia, pseudomonas pneumonia, pulmonary fibrosis MRSA, prostate cancer and skin cancer with radiation. Clinical Indicators: PN 01/12 - 01/15: somewhat emaciated Labs on admission: Albumin 2.9, Total Protein 5.7 Current BMI: 25.2 Insufficient energy intake: Per RD Pt was on clear liquid diet with C Difficile flare up Per RD, inadequate energy intake, prolonged NPO/clear liquid diet Treatment: PPN started on 01/11 Dietary Consult: YES Supplements: Per RD, Ensure Enlive, multivitamin, texture modified diet, low fiber diet, continue PPN and Lipids Lab monitoring: Albumin, and total protein In your professional opinion, can you please clarify if these findings signify one of the following conditions? Mild Protein-Calorie Malnutrition Moderate Protein-Calorie Malnutrition Malnutrition, Unspecified Other condition, please specify Unable to determine unable to determine MTDD
--- NOTE | 2018-01-16 16:52 | P.PN ---
Progress Note - Text Progress Note Date: 01/16/18 the patient resting In his bed. He denies any significant abdominal pain. He has h exam as well as cystoscopy. Abdomen sof tenderness. Patient will be continued to treat her conservatively for his C. difficile colitis. No surgical intervention is planned.
[2018-01-16] MEDS: ATORVASTATIN 10 MG TAB PO SCH (21:00)
[2018-01-16] MEDS: ASPIRIN 81 MG PO SCH (21:00)
[2018-01-16] MEDS: CITALOPRAM HYDROBROMIDE 20 MG TAB PO SCH (21:00)
[2018-01-16] MEDS: TAMSULOSIN 0.4 MG CAP.ER.24H PO SCH (21:00)
[2018-01-16] MEDS: MELATONIN 3 MG TABLET PO SCH (21:12)
--- NOTE | 2018-01-16 23:35 | P.PN ---
Subjective Progress Note Date: 01/16/18 82-year-old male is well-known to the infectious disease service from his prior hospitalizations and office follow-up through the summer. The patient has a known history of advanced oxygen and occasionally steroid- dependent extremities be COPD, he was having frequent exacerbations and was with a [id number] pseudomonas aeruginosa. 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 He is becoming more short of breath he was having increasing weakness was having off and about 4 stools a day. Occasionally were watery but most of the time it was formed. He does relate to some crampy abdominal pain especially the left lower quadrant. He is not having nausea or emesis. He is having no hematemesis or melena or hematochezia. He does have fatigue and malaise. 01/07/2018 the patient is feeling about the same as he has had the last few days but the frequency of stools has improved slightly. Is not having fevers or trills. Does not have much abdominal pain. 01/13 2018 patient is now feeling just slightly better. He still having multiple loose stools per day. He was having ongoing significant diarrhea despite the vancomycin therapy was transitioned to Dificid. He believes he somewhat improved. Still having some ongoing diarrhea. He feels weak because of it. That is improved from admission. No fevers or chills. No nausea or emesis but appetite is somewhat poor. 01/14/2018 reveals the patient is feeling better, only one small space to stool occurred in the last day. He is having no abdominal pain. Appetite is adequate. No nausea or emesis. He sitting up in a chair showing is improved strength. 01/15/2018 patient continues to feel better had 1 semi-formed stool today however he was incontinent with that stool. He's eating well. Having no abdominal pain. No nausea or emesis. Weakness is improved. Up with a therapist getting to the chair today without difficulty. 01/16/2018 patient has further improvement today. Upon awakening this morning and a small amount of incontinent stool, 1 semi-formed stool occurred throughout the day. He is having no abdominal pain. Appetite is excellent. Denies nausea or emesis. Is having no abdominal pain. Is looking forward to going home. Objective - Vital Signs Vital signs: Vital Signs Temp 98.1 F 01/16/18 20:02 Pulse 110 H 01/16/18 20:02 Resp 18 01/16/18 20:02 BP 99/50 01/16/18 20:02 Pulse Ox 95 01/16/18 20:02 Intake & Output 01/16/18 01/16/18 01/17/18 06:59 18:59 06:59 Intake Total 720 Output Total 500 600 200 Balance -500 120 -200 Weight 79.8 kg 79.8 kg Intake: Oral 720 Output: Urine 500 600 200 Other: Voiding Method Urinal Urinal # Voids 1 1 # Bowel Movements 1 2 1 - Exam 82-year-old male who is on oxygen at 5 L which is his baseline dose relates that he's feeling better since coming to hospital, short of breath at baseline improved diarrhea HEENT: Anicteric conjunctiva are pink and moist nasal mucosa grossly intact without significant lesions, there is no thrush. Neck: The neck is supple without significant lymphadenopathy or thyromegaly. Lungs: Symmetrical air entry is noted, rare expiratory wheezes are heard no blanca bronchial sounds dullness or egophony Heart: Regular rate and rhythm with an audible S1-S2, no S3 no S4. There is no significant murmur click or rub, PMI was nondisplaced. Abdomen: The abdomen is soft and nondistended, no palpable hepatosplenomegaly, no masses no guarding or rebound has minimal left lower quadrant tenderness Extremities: The upper extremities have excellent pulses they are symmetric, no significant petechiae or telangiectasia. No splinter hemorrhages were noted. The lower extremities are free from significant edema. The peripheral pulses were 2+ and symmetric. Neuro: Awake alert oriented to person place and time. There are no acute new gross focal sensory motor deficits. - Labs CBC & Chem 7: 01/14/18 05:49 01/16/18 06:59 Labs: Abnormal Lab Results - Last 24 Hours (Table) 01/16/18 Range/Units 06:59 Sodium 131 L (137-145) mmol/L Chloride 92 L (98-107) mmol/L Carbon Dioxide 40 H (22-30) mmol/L BUN 32 H (9-20) mg/dL Calcium 7.1 L (8.4-10.2) mg/dL Assessment and Plan (1) Acute exacerbation of chronic obstructive airways disease Current Visit: Yes Status: Acute Code(s): J44.1 - CHRONIC OBSTRUCTIVE PULMONARY DISEASE W (ACUTE) EXACERBATION SNOMED Code(s): 346259236 (2) Colitis Narrative/Plan: 82 year old man Who has a history of oxygen dependent COPD, has had difficulties with chronic pseudomonas infection and is on inhaled tobramycin therapy. He has been doing well without any significant hospitalizations for pneumonia since earlier this year. He over became more short of breath and also started to have some vague abdominal pain and multiple loose stools. With evidence of the positive C. difficile toxin the infectious diseases consultation was requested. There was also evidence of a possible blood culture laboratories now verified that this is a coagulase-negative staph and will not require further intervention. C. diff will be treated with oral vancomycin therapy, given the patient is ill enough to be hospitalized as the current recommendation. Literature review is performed and there is no significant data about inhaled tobramycin resulted in C. diff colitis. However the patient cannot recall any other antibiotic therapy within the last few months, but had multiple antibiotics earlier in the year. His response to therapy will be monitored, but is already feeling better this afternoon. We'll attempt to avoid other antibiotics at this time. If he can tolerate probiotic therapy would add. 01/07/2018 the patient is stable to improved, still having some loose stools and still feels poorly. His shortness of breath is about at baseline and is on his usual 5 L nasal cannula of oxygen. WBC had a significant change of the sputum production as of late. Remains very pleased with his inhaled tobramycin therapy and how this is certainly help his pulmonary status. We'll plan 10 days of vancomycin therapy 250 mg orally 4 times a day. We'll add Questran to the regimen to see if this can improve the bulk of his stools at may help him symptomatically. Attempting to avoid other antibiotic therapy at this time. We'll continue his usual inhaled tobramycin therapy. 01/13/2018 patient was doing slightly better but then stopped improving and counseling vancomycin therapy was transitioned to Dificid. He believes is feeling somewhat better. Still having 3-4 soft to loose stools per day which she is uncomfortable with. Fortunately sent having much abdominal pain. It appears slightly improved overall. A single dose of Imodium was requested and will monitor his response to try to reduce the frequency of his stools. 01/14/2018 reveals the patient to be feeling better today. One dose of Imodium was given to reduce the frequency and volume of the stool and has been effective. He's had no increase of abdominal pain and no abdominal distention. She's had no fever and feels considerably better at this time. It appears that Dificid is allowing improvement of his C. diff. His chronic COPD is at its baseline and evidence the chronic colonization with Pseudomonas is found that the patient does not have acute bronchial infection at this time. Would continue with his ROSI treatments once he is discharged. 01/15/2018 patient continues to feel much better. He's had 1 stool today it was mostly formed but incontinent. He is able to get up and nameplate within the room. He is not having pain. No fevers or chills. No abdominal pain with an adequate appetite. He is improving and plan for discharge is in process. Other than Dificid will be on no antimicrobials at home except for his inhaled ROSI per its schedule 01/16/2018 patient feels considerably better again today. His workup with ambulation. Sitting up in the chair. Eating meals without difficulties. 1 semi-formed stool throughout the day. Is looking forward to going home. His course of Dificid has been sent to pharmacy. He should complete this course in the outpatient setting. Can continue with some cholestyramine, keeping the schedule such that is not taken with other medications especially the Dificid at home. Hopefully we'll be able to discharge home tomorrow with follow-up in the outpatient setting at the end of his antibiotic therapy for his C. diff. Should continue with his ROSI inhalation therapy as before. Current Visit: Yes Status: Acute Code(s): K52.9 - NONINFECTIVE GASTROENTERITIS AND COLITIS, UNSPECIFIED SNOMED Code(s): 40345522
[2018-01-17] MEDS: IPRATROPIUM-ALBUTEROL 3 ML NEB INHALATION SCH ×5 (00:11→15:50)
[2018-01-17 07:09] LABS: Anion Gap -1 mmol/L; Blood Urea Nitrogen 33 mg/dL (9-20); Calcium 7.3 mg/dL (8.4-10.2); Carbon Dioxide 39 mmol/L (22-30); Chloride 93 mmol/L (98-107); Glucose 87 mg/dL (74-99); Potassium 4.5 mmol/L (3.5-5.1); Sodium 131 mmol/L (137-145)
[2018-01-17] MEDS: MULTIVITAMINS, THERA 1 EACH TAB PO SCH (08:00)
[2018-01-17] MEDS: predniSONE 20 MG TAB PO SCH (08:00)
[2018-01-17] MEDS: LACTOBACILLUS ACIDOPH & BULGAR 1 EACH PACKET PO SCH (08:00)
[2018-01-17] MEDS: CHOLESTYRAMINE (WITH SUGAR) 4 GM PACKET PO SCH (08:00)
[2018-01-17] MEDS: HEPARIN SODIUM,PORCINE 5,000 UNIT/ML 1 ML VIAL SQ SCH (08:00)
[2018-01-17] MEDS: busPIRone HCl 5 MG TAB PO SCH (08:00)
[2018-01-17] MEDS: NYSTATIN 100,000 UNIT/ML SUSP 500,000 UNIT/5 ML CUP PO SCH (08:00)
[2018-01-17] MEDS: FUROSEMIDE 10 MG/ML 4 ML VIAL IV SCH (08:00)
[2018-01-17] MEDS: FIDAXOMICIN 200 MG TABLET PO SCH (08:00)
[2018-01-17 08:17] VITALS: BP 109/53; TEMP 97.6
[2018-01-17] MEDS: FORMOTEROL FUMARATE 20 MCG/2 ML NEBU INHALATION SCH (08:25)
[2018-01-17] MEDS: BUDESONIDE 1 MG/2 ML NEBU INHALATION SCH (08:25)
[2018-01-17 12:03] VITALS: PULSE 104
== END 2018-01-17 15:34 | disposition home health service (06) | DRG 871 ==
LOC: EC 10:28 → 3SCARD 12:26
PROVIDERS: ADMIT Internal Medicine; ATTEND Internal Medicine
DX: A41.4 Sepsis due to anaerobes (principal); J96.21 Acute and chronic respiratory failure with hypoxia; A04.72 Enterocolitis due to Clostridium difficile, not specified as recurrent; E87.2 Acidosis; J44.0 Chronic obstructive pulmonary disease with (acute) lower respiratory infection; J44.1 Chronic obstructive pulmonary disease with (acute) exacerbation; R18.8 Other ascites; Z92.3 Personal history of irradiation; E78.5 Hyperlipidemia, unspecified; E86.9 Volume depletion, unspecified; F32.9 Major depressive disorder, single episode, unspecified; F41.9 Anxiety disorder, unspecified; J84.10 Pulmonary fibrosis, unspecified; K59.00 Constipation, unspecified; K80.20 Calculus of gallbladder without cholecystitis without obstruction; Z80.8 Family history of malignant neoplasm of other organs or systems; Z85.46 Personal history of malignant neoplasm of prostate; Z85.828 Personal history of other malignant neoplasm of skin; Z86.14 Personal history of Methicillin resistant Staphylococcus aureus infection; Z87.891 Personal history of nicotine dependence; Z99.81 Dependence on supplemental oxygen; Z79.82 Long term (current) use of aspirin; Z79.899 Other long term (current) drug therapy
CPT/HCPCS: 36415; 71046; 74176; 74177; 80048; 80053; 80198; 81001; 81003; 82040; 82150; 82330; 83036; 83605; 83630; 83690; 83735; 84100; 84478; 85025; 85610; 85730; 87040; 87045; 87046; 87070; 87077; 87086; 87186; 87205; 87324; 93005; 94640; 94760; 96365; 96367; 96375; 99291

== ENCOUNTER 2018-01-20 13:36 | Inpatient (IN) | payer MEDICARE, OTHER ==
[2018-01-20] MEDS ORDERED: SODIUM CHLORIDE 0.9% 2,000 ML IV ONE (14:02)
--- NOTE | 2018-01-20 14:06 | ED ---
General Adult HPI - General Chief complaint: Nausea/Vomiting/Diarrhea Stated complaint: Weakness Time Seen by Provider: 01/20/18 13:40 Source: patient, EMS, RN notes reviewed, old records reviewed Mode of arrival: EMS Limitations: no limitations - History of Present Illness Initial comments: This is a 82-year-old male with a recent prolonged admission for C. difficile and associated problems who was just discharged 3 days ago and since then has been failing to thrive at home he is had decreased oral intake. He is not eating or drinking. He is had a fall yesterday where there was a prolonged period of him being up with assistance from his . He's also had 15 mL of urine output today thus far. No chest pain or shortness of breath he has had a fever no chills or sweats reported. No chest or abdominal pain at this time - Related Data Home Medications Medication Instructions Recorded Confirmed Aspirin 81 mg PO HS 06/02/14 01/20/18 Fluticasone/Salmeterol [Advair 1 puff INHALATION RT-BID 06/02/14 01/20/18 500-50 Diskus] Tamsulosin [Flomax] 0.4 mg PO HS 06/02/14 01/20/18 Simvastatin [Zocor] 10 mg PO HS 08/27/14 01/20/18 guaiFENesin-DM 600/30MG [Mucinex 1 tab PO DAILY 02/13/16 01/20/18 Dm] Calcium Carbonate [Calcium] 600 mg PO DAILY 02/24/17 01/20/18 Melatonin 3 mg PO HS 02/24/17 01/20/18 busPIRone HCl [Buspar] 5 mg PO BID 02/24/17 01/20/18 Albuterol Nebulized [Ventolin 2.5 mg INHALATION RT-TID 04/01/17 01/20/18 Nebulized] Citalopram Hydrobromide [CeleXA] 40 mg PO HS 04/24/17 01/20/18 Furosemide [Lasix] 40 mg PO DAILY 04/24/17 01/20/18 Multivit-Min/FA/Lycopen/Lutein 1 tab PO DAILY 04/24/17 01/20/18 [Centrum Silver Tablet] Nystatin 100,000 Unit/ml Susp 4 ml PO QID 04/24/17 01/20/18 [Mycostatin Oral Susp] ALPRAZolam [Xanax] 1 mg PO DAILY PRN 01/04/18 01/20/18 Theophylline 12 Hour [Yevgeniy-Dur] 300 mg PO BID 01/04/18 01/20/18 Tiotropium Conover [Spiriva] 1 cap INHALATION RT-DAILY 01/04/18 01/20/18 diphenhydrAMINE [Benadryl] 25 mg PO HS PRN 01/04/18 01/20/18 predniSONE See Taper PO DAILY 01/04/18 01/20/18 Previous Rx's Medication Instructions Recorded Fidaxomicin [Dificid] 200 mg PO BID #20 tablet 01/13/18 Cholestyramine (with Sugar) 4 gm PO QID 5 Days #20 packet 01/17/18 [Questran Packet] Lactobacillus Acidoph & Bulgar 1 each PO BID #20 packet 01/17/18 [Lactinex] Nystatin 100,000 Unit/ml Susp 500,000 unit PO QID 3 Days #1 01/17/18 [Mycostatin Oral Susp] bottle Allergies Allergy/AdvReac Type Severity Reaction Status Date / Time No Known Allergies Allergy Verified 01/20/18 14:52 Review of Systems ROS Statement: Those systems with pertinent positive or pertinent negative responses have been documented in the HPI. ROS Other: All systems not noted in ROS Statement are negative. Past Medical History Past Medical History: Cancer, COPD, Hyperlipidemia, Pneumonia, Prostate Disorder Additional Past Medical History / Comment(s): Pt was admitted on 02/23/17 with bilateral pneumonia. Other hx: COPD, pneumonia with sepsis, 2007 prostate cancer treated by radiation therapy, skin cancer with removal, normocytic anemia , cervical DDD. 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 Past Anesthesia/Blood Transfusion Reactions: No Reported Reaction Past Psychological History: Anxiety, Depression Smoking Status: Former smoker Past Alcohol Use History: None Reported Past Drug Use History: None Reported - Past Family History Mother Family Medical History: No Reported History Father Family Medical History: Cancer Additional Family Medical History / Comment(s): spine CA which spread to bone CA General Exam - General Exam Comments Initial Comments: This a well-developed asthenic appearing male who is lethargic Limitations: no limitations General appearance: alert, in no apparent distress Head exam: Present: atraumatic, normocephalic, normal inspection Eye exam: Present: normal appearance, PERRL, EOMI. Absent: scleral icterus, conjunctival injection, periorbital swelling ENT exam: Present: mucous membranes dry Neck exam: Present: normal inspection. Absent: tenderness, meningismus, lymphadenopathy Respiratory exam: Present: decreased breath sounds. Absent: respiratory distress, wheezes, rales, rhonchi, stridor Cardiovascular Exam: Present: normal rhythm, tachycardia, normal heart sounds. Absent: systolic murmur, diastolic murmur, rubs, gallop, clicks GI/Abdominal exam: Present: soft, normal bowel sounds. Absent: distended, tenderness, guarding, rebound, rigid Extremities exam: Present: normal inspection, full ROM, normal capillary refill. Absent: tenderness, pedal edema, joint swelling, calf tenderness Back exam: Present: normal inspection Neurological exam: Present: alert, oriented X3, CN II-XII intact Psychiatric exam: Present: normal affect, normal mood Skin exam: Present: warm, dry, intact, normal color. Absent: rash Course Vital Signs 01/20/18 13:42 Temperature 101.2 F H Pulse Rate 111 H Respiratory 22 Rate Blood Pressure 111/49 O2 Sat by Pulse 97 Oximetry EKG Findings - EKG Results: EKG: interpreted by ERMD, sinus rhythm (Sinus tachycardia rate of 113. We'll 150 to QRS 80 QT since QTC 340/477 PACs noted) Medical Decision Making - Medical Decision Making I did discuss the findings with the patient and family as well as with Dr. Yu who was in the emergency department as well as with Dr. Zheng patient will be admitted for IV hydration at this time hospice is considered. - Lab Data Result diagrams: 01/20/18 13:48 01/20/18 13:48 Lab Results 01/20/18 01/20/18 01/20/18 Range/Units 13:48 13:48 13:48 WBC 4.6 (3.8-10.6) k/uL RBC 3.28 L (4.30-5.90) m/uL Hgb 9.4 L (13.0-17.5) gm/dL Hct 28.9 L (39.0-53.0) % MCV 88.2 (80.0-100.0) fL MCH 28.6 (25.0-35.0) pg MCHC 32.4 (31.0-37.0) g/dL RDW 14.5 (11.5-15.5) % Plt Count 126 L (150-450) k/uL Neutrophils % 85 % Lymphocytes % 8 % Monocytes % 5 % Eosinophils % 0 % Basophils % 0 % Neutrophils # 3.9 (1.3-7.7) k/uL Lymphocytes # 0.4 L (1.0-4.8) k/uL Monocytes # 0.2 (0-1.0) k/uL Eosinophils # 0.0 (0-0.7) k/uL Basophils # 0.0 (0-0.2) k/uL Sodium 131 L (137-145) mmol/L Potassium 3.9 (3.5-5.1) mmol/L Chloride 96 L (98-107) mmol/L Carbon Dioxide 32 H (22-30) mmol/L Anion Gap 3 mmol/L BUN 13 (9-20) mg/dL Creatinine 0.71 (0.66-1.25) mg/dL Est GFR (CKD-EPI)AfAm >90 (>60 ml/min/1.73 sqM) Est GFR (CKD-EPI)NonAf 88 (>60 ml/min/1.73 sqM) Glucose 103 H (74-99) mg/dL Plasma Lactic Acid Giovanni (0.7-2.0) mmol/L Calcium 6.9 L (8.4-10.2) mg/dL Magnesium 1.9 (1.6-2.3) mg/dL Total Bilirubin 0.4 (0.2-1.3) mg/dL AST 26 (17-59) U/L ALT 47 (21-72) U/L Alkaline Phosphatase 47 (38-126) U/L Total Creatine Kinase <20 L (55-170) U/L CK-MB (CK-2) <0.2 (0.0-2.4) ng/mL CK-MB (CK-2) Rel Index Total Protein 4.0 L (6.3-8.2) g/dL Albumin 1.9 L (3.5-5.0) g/dL Urine Color Urine Appearance (Clear) Urine pH (5.0-8.0) Ur Specific Vergas (1.001-1.035) Urine Protein (Negative) Urine Glucose (UA) (Negative) Urine Ketones (Negative) Urine Blood (Negative) Urine Nitrite (Negative) Urine Bilirubin (Negative) Urine Urobilinogen (<2.0) mg/dL Ur Leukocyte Esterase (Negative) 01/20/18 01/20/18 Range/Units 13:48 14:33 WBC (3.8-10.6) k/uL RBC (4.30-5.90) m/uL Hgb (13.0-17.5) gm/dL Hct (39.0-53.0) % MCV (80.0-100.0) fL MCH (25.0-35.0) pg MCHC (31.0-37.0) g/dL RDW (11.5-15.5) % Plt Count (150-450) k/uL Neutrophils % % Lymphocytes % % Monocytes % % Eosinophils % % Basophils % % Neutrophils # (1.3-7.7) k/uL Lymphocytes # (1.0-4.8) k/uL Monocytes # (0-1.0) k/uL Eosinophils # (0-0.7) k/uL Basophils # (0-0.2) k/uL Sodium (137-145) mmol/L Potassium (3.5-5.1) mmol/L Chloride (98-107) mmol/L Carbon Dioxide (22-30) mmol/L Anion Gap mmol/L BUN (9-20) mg/dL Creatinine (0.66-1.25) mg/dL Est GFR (CKD-EPI)AfAm (>60 ml/min/1.73 sqM) Est GFR (CKD-EPI)NonAf (>60 ml/min/1.73 sqM) Glucose (74-99) mg/dL Plasma Lactic Acid Giovanni 1.3 (0.7-2.0) mmol/L Calcium (8.4-10.2) mg/dL Magnesium (1.6-2.3) mg/dL Total Bilirubin (0.2-1.3) mg/dL AST (17-59) U/L ALT (21-72) U/L Alkaline Phosphatase (38-126) U/L Total Creatine Kinase (55-170) U/L CK-MB (CK-2) (0.0-2.4) ng/mL CK-MB (CK-2) Rel Index Total Protein (6.3-8.2) g/dL Albumin (3.5-5.0) g/dL Urine Color Yellow Urine Appearance Clear (Clear) Urine pH 7.5 (5.0-8.0) Ur Specific [place] 1.011 (1.001-1.035) Urine Protein Negative (Negative) Urine Glucose (UA) Negative (Negative) Urine Ketones Negative (Negative) Urine Blood Negative (Negative) Urine Nitrite Negative (Negative) Urine Bilirubin Negative (Negative) Urine Urobilinogen <2.0 (<2.0) mg/dL Ur Leukocyte Esterase Negative (Negative) - Radiology Data Radiology results: report reviewed (I did review the imaging and report evidence of a developing pneumonia.), image reviewed Disposition Clinical Impression: Pneumonia, Failure to thrive syndrome, adult, Dehydration, Chronic anemia, Febrile illness, acute Disposition: ADMITTED IP TO THIS [facility] Condition: Stable Referrals: Lily Carolina MD [Primary Care Provider] - 1-2 days
[2018-01-20 14:23] LABS: Basophils % (A) 0 %; Eosinophils % (A) 0 %; HCT 28.9 % (39.0-53.0); HGB 9.4 gm/dL (13.0-17.5); Lymphocytes # (A) 0.4 k/uL (1.0-4.8); Lymphocytes % (A) 8 %; MCH 28.6 pg (25.0-35.0); MCHC 32.4 g/dL (31.0-37.0); MCV 88.2 fL (80.0-100.0); Mean Platelet Volume 7.1; Monocytes # (A) 0.2 k/uL (0-1.0); Monocytes % (A) 5 %; Neutrophils # (A) 3.9 k/uL (1.3-7.7); Neutrophils % (A) 85 %; Platelet Count 126 k/uL (150-450); RBC 3.28 m/uL (4.30-5.90); RDW 14.5 % (11.5-15.5); WBC 4.6 k/uL (3.8-10.6)
[2018-01-20 14:32] LABS: ALT 47 U/L (21-72); AST 26 U/L (17-59); Albumin 1.9 g/dL (3.5-5.0); Alkaline Phosphatase 47 U/L (38-126); Anion Gap 3 mmol/L; Blood Urea Nitrogen 13 mg/dL (9-20); Calcium 6.9 mg/dL (8.4-10.2); Carbon Dioxide 32 mmol/L (22-30); Chloride 96 mmol/L (98-107); Glucose 103 mg/dL (74-99); Magnesium 1.9 mg/dL (1.6-2.3); Potassium 3.9 mmol/L (3.5-5.1); Sodium 131 mmol/L (137-145); Total Bilirubin 0.4 mg/dL (0.2-1.3)
[2018-01-20 14:43] LABS: Appearance,Urine Clear (Clear); Bilirubin,Urine Negative (Negative); Blood,Urine Negative (Negative); Color,Urine Yellow; Glucose,Urine (UA) Negative (Negative); Ketones,Urine Negative (Negative); Leukocyte Esterase,Urine Negative (Negative); Nitrite,Urine Negative (Negative); PH, Urine 7.5 (5.0-8.0); Protein,Urine Negative (Negative); Specific Gravity,Urine 1.011 (1.001-1.035); Urobilinogen,Urine <2.0 mg/dL (<2.0)
[2018-01-20 14:43] LABS: Creatine Kinase <20 U/L (55-170)
[2018-01-20 14:52] LABS: Creatine Kinase MB <0.2 ng/mL (0.0-2.4)
--- NOTE | 2018-01-20 14:53 | XR ---
EXAMINATION TYPE: XR chest 2V DATE OF EXAM: 01/20/2018 COMPARISON: 01/08/2018 HISTORY: Weakness with recent pneumonia TECHNIQUE: Frontal and lateral views of the chest are obtained. FINDINGS: In addition to the multifocal chronic reticulonodular interstitial changes and bullous emp hysematous changes there is increasing confluence of the medial bibasilar airspace disease and right lateral midlung reticulation. There is generalized osseous demineralization present. Cardia mediastin al silhouette is within normal limits. No pneumothorax. 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
[2018-01-20] MEDS ORDERED: PNEUMONIA PROTOCOL UTILIZED 1 EACH MISC PO PRN (15:23)
[2018-01-20] MEDS ORDERED: PIPERACILLIN-TAZOBACTAM 3.375 GM in SODIUM CHLORIDE 0.9% 100 ML IVPB STA (15:23)
[2018-01-20] MEDS ORDERED: LEVOFLOXACIN 750MG-D5W PMX 750 MG in DEXTROSE/WATER 1 150ML.BAG IVPB STA (15:23)
[2018-01-20] MEDS ORDERED: diphenhydrAMINE 25 MG CAP PO PRN (15:25)
[2018-01-20] MEDS ORDERED: ALPRAZolam 1 MG TAB PO PRN (15:25)
[2018-01-20] MEDS ORDERED: SODIUM CHLORIDE 0.9% 1,000 ML IV SCH (15:30)
[2018-01-20] MEDS: IPRATROPIUM-ALBUTEROL 3 ML NEB INHALATION SCH ×3 (15:45→23:43)
[2018-01-20] MEDS ORDERED: ATROPINE OPHTH SOLN 1% 5ML BTL SUBLINGUAL PRN (15:56)
[2018-01-20] MEDS ORDERED: MORPHINE SULFATE 4 MG/ML SYRINGE IV PRN (15:56)
[2018-01-20] MEDS ORDERED: ONDANSETRON 4 MG/2 ML VIAL IVP PRN (15:56)
[2018-01-20] MEDS ORDERED: ACETAMINOPHEN TAB 325 MG TAB PO PRN (15:56)
--- NOTE | 2018-01-20 16:07 | P.HPIM ---
History of Present Illness 82-year-old pleasant gentleman was recently discharged from hospital after he was treated for C. diff. Patient had multiple recent hospitalizations. Patient has advanced COPD he is highly to cefoxitin patient appears to have bronchiectasis with the multiple the pneumonias in the past. 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 Patient was on antibiotics multiple times including ciprofloxacin after which patient ended up having C. diff patient had a prolonged hospitalization after he was treated for C. diff subsequently was discharged home. Patient progressively gotten worse although he doesn't have any diarrhea nausea vomiting fevers. is unable to take care of him. When I evaluated the patient patient a short of breath on 5 L. Chest x-ray showed worsening infiltrate in bilateral lower lung lobes. I had extensive discussion with the patient and the at bedside. Initially patient wanted to be full code and everything to be done. But after at a length discussion patient decided on comfort care. Comfort care his mother most appropriate management for the patient considering his advanced dementia overall extreme poor prognosis, patient's the quality of life is extremely poor and only expected to get worse. Patient to probably end up staying in the facility be mainly came in for the placement to subacute rehabilitation. is agreeable with hospice and subsequently discussed with the patient who is also agreeable with comfort care and hospice after providing insight. Patient will be made hospice, discussed with the patient's family members and comfort care measures will be initiated here no antibiotics will be continued only comfort medications will be continued patient was initially started on Zosyn and levofloxacin which will be discontinued. Fidaxomycin for C. diff will be discontinued as well. Patient is presently DO NOT RESUSCITATE no code Review of Systems REVIEW OF SYSTEMS: CONSTITUTIONAL: As mentioned above HEENT: No recent visual problems or hearing problems. Denied any sore throat. CARDIOVASCULAR: No chest pain, orthopnea, PND, no palpitations, no syncope. PULMONARY: Shortness of breath which is chronic and cough with brownish sputum production GASTROINTESTINAL: No diarrhea, no nausea, no vomiting, no abdominal pain. Normoactive bowel sounds. NEUROLOGICAL: No headaches, no weakness, no numbness. HEMATOLOGICAL: Denies any bleeding or petechiae. GENITOURINARY: Denies any burning micturition, frequency, or urgency. MUSCULOSKELETAL/RHEUMATOLOGICAL: Denies any joint pain, swelling, or any muscle pain. ENDOCRINE: Denies any polyuria or polydipsia. The rest of the 14-point review of systems is negative. Past Medical History Past Medical History: Cancer, COPD, Hyperlipidemia, Pneumonia, Prostate Disorder Additional Past Medical History / Comment(s): Pt was admitted on 02/23/17 with bilateral pneumonia. Other hx: COPD, pneumonia with sepsis, 2007 prostate cancer treated by radiation therapy, skin cancer with removal, normocytic anemia , cervical DDD. 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 Past Anesthesia/Blood Transfusion Reactions: No Reported Reaction Past Psychological History: Anxiety, Depression Smoking Status: Former smoker Past Alcohol Use History: None Reported Past Drug Use History: None Reported - Past Family History Mother Family Medical History: No Reported History Father Family Medical History: Cancer Additional Family Medical History / Comment(s): spine CA which spread to bone CA Medications and Allergies Home Medications Medication Instructions Recorded Confirmed Type Aspirin 81 mg PO HS 06/02/14 01/20/18 History Fluticasone/Salmeterol [Advair 1 puff INHALATION RT-BID 06/02/14 01/20/18 History 500-50 Diskus] Tamsulosin [Flomax] 0.4 mg PO HS 06/02/14 01/20/18 History Simvastatin [Zocor] 10 mg PO HS 08/27/14 01/20/18 History guaiFENesin-DM 600/30MG [Mucinex 1 tab PO DAILY 02/13/16 01/20/18 History Dm] Calcium Carbonate [Calcium] 600 mg PO DAILY 02/24/17 01/20/18 History Melatonin 3 mg PO HS 02/24/17 01/20/18 History busPIRone HCl [Buspar] 5 mg PO BID 02/24/17 01/20/18 History Albuterol Nebulized [Ventolin 2.5 mg INHALATION RT-TID 04/01/17 01/20/18 History Nebulized] Citalopram Hydrobromide [CeleXA] 40 mg PO HS 04/24/17 01/20/18 History Furosemide [Lasix] 40 mg PO DAILY 04/24/17 01/20/18 History Multivit-Min/FA/Lycopen/Lutein 1 tab PO DAILY 04/24/17 01/20/18 History [Centrum Silver Tablet] Nystatin 100,000 Unit/ml Susp 4 ml PO QID 04/24/17 01/20/18 History [Mycostatin Oral Susp] ALPRAZolam [Xanax] 1 mg PO DAILY PRN 01/04/18 01/20/18 History Theophylline 12 Hour [Yevgeniy-Dur] 300 mg PO BID 01/04/18 01/20/18 History Tiotropium [place] [Spiriva] 1 cap INHALATION RT-DAILY 01/04/18 01/20/18 History diphenhydrAMINE [Benadryl] 25 mg PO HS PRN 01/04/18 01/20/18 History predniSONE See Taper PO DAILY 01/04/18 01/20/18 History Fidaxomicin [Dificid] 200 mg PO BID #20 tablet 01/13/18 01/20/18 Rx Cholestyramine (with Sugar) 4 gm PO QID 5 Days #20 packet 01/17/18 01/20/18 Rx [Questran Packet] Lactobacillus Acidoph & Bulgar 1 each PO BID #20 packet 01/17/18 01/20/18 Rx [Lactinex] Nystatin 100,000 Unit/ml Susp 500,000 unit PO QID 3 Days #1 01/17/18 01/20/18 Rx [Mycostatin Oral Susp] bottle Allergies Allergy/AdvReac Type Severity Reaction Status Date / Time No Known Allergies Allergy Verified 01/20/18 14:52 Physical Exam Vitals: Vital Signs Temp Pulse Resp BP Pulse Ox 01/20/18 15:00 108 H 24 119/61 99 01/20/18 14:00 110 H 27 H 111/49 98 01/20/18 13:42 101.2 F H 111 H 22 111/49 97 Intake and Output 01/20/18 01/20/18 01/20/18 06:59 14:59 22:59 Other: Weight 72.575 kg PHYSICAL EXAMINATION: GENERAL: appears to be lethargic sick is in moderate respiratory distress and 5 L of oxygen HEENT: Pupils are round and equally reacting to light. EOMI. No scleral icterus. No conjunctival pallor. Normocephalic, atraumatic. No pharyngeal erythema. No thyromegaly. CARDIOVASCULAR: S1 and S2 present. No murmurs, rubs, or gallops. PULMONARY: Rhonchus breath sounds, decreased air entry into bilateral lung pichardo ABDOMEN: Soft, nontender, nondistended, normoactive bowel sounds. No palpable organomegaly. MUSCULOSKELETAL: No joint swelling or deformity. EXTREMITIES: No cyanosis, clubbing, or pedal edema. NEUROLOGICAL: Gross neurological examination did not reveal any focal deficits. Does have significant generalized weakness SKIN: No rashes. Results CBC & Chem 7: 01/20/18 13:48 01/20/18 13:48 Labs: Abnormal Lab Results - Last 24 Hours (Table) 01/20/18 01/20/18 01/20/18 Range/Units 13:48 13:48 13:48 RBC 3.28 L (4.30-5.90) m/uL Hgb 9.4 L (13.0-17.5) gm/dL Hct 28.9 L (39.0-53.0) % Plt Count 126 L (150-450) k/uL Lymphocytes # 0.4 L (1.0-4.8) k/uL Sodium 131 L (137-145) mmol/L Chloride 96 L (98-107) mmol/L Carbon Dioxide 32 H (22-30) mmol/L Glucose 103 H (74-99) mg/dL Calcium 6.9 L (8.4-10.2) mg/dL Total Creatine Kinase <20 L (55-170) U/L Total Protein 4.0 L (6.3-8.2) g/dL Albumin 1.9 L (3.5-5.0) g/dL Assessment and Plan Plan: -generalized weakness deconditioning secondary to recent hospitalization and COPD which is chronic -C. diff no present diarrhea -COPD chronic -Possible reactivation of pneumonia from his Pseudomonas -Hyperlipidemia -benign prostatic hypertrophy -Depression -CODE STATUS DO NOT RESUSCITATE Plan: After at length discussion with the family, patient patient would made hospice comfort care. Hospice services will be consulted. Patient most probably will qualify for general inpatient hospice -Patient will be emaciated on comfort measures and only comfort medications will be continued all the antibiotics will be discontinued discussed the same thing with the patient and family members. Discussed with the concrete block mason on phone who is agreeable with the plan
[2018-01-20 16:46] VITALS: BMI 22.9
[2018-01-20] MEDS ORDERED: NYSTATIN 100,000 UNIT/ML SUSP 500,000 UNIT/5 ML CUP PO SCH ×2 (18:00)
[2018-01-20] MEDS ORDERED: CHOLESTYRAMINE (WITH SUGAR) 4 GM PACKET PO SCH (18:00)
[2018-01-20] MEDS ORDERED: SYMBICORT 160-4.5 MCG INHALER INHALATION SCH (20:00)
[2018-01-20] MEDS: busPIRone HCl 5 MG TAB PO SCH (20:40)
[2018-01-20] MEDS ORDERED: LACTOBACILLUS ACIDOPH & BULGAR 1 EACH PACKET PO SCH (21:00)
[2018-01-20] MEDS ORDERED: ATORVASTATIN 10 MG TAB PO SCH (21:00)
[2018-01-20] MEDS ORDERED: MELATONIN 3 MG TABLET PO SCH (21:00)
[2018-01-20] MEDS ORDERED: THEOPHYLLINE 24 HOUR 300 MG CAP.ER.24H PO SCH (21:00)
[2018-01-20] MEDS ORDERED: TAMSULOSIN 0.4 MG CAP.ER.24H PO SCH (21:00)
[2018-01-20] MEDS ORDERED: ASPIRIN 81 MG PO SCH (21:00)
[2018-01-20] MEDS ORDERED: FIDAXOMICIN 200 MG TABLET PO SCH (21:00)
[2018-01-20] MEDS ORDERED: CITALOPRAM HYDROBROMIDE 20 MG TAB PO SCH (21:00)
[2018-01-21] MEDS ORDERED: PIPERACILLIN-TAZOBACTAM 3.375 GM in SODIUM CHLORIDE 0.9% 100 ML IVPB SCH ×2
[2018-01-21] MEDS: IPRATROPIUM-ALBUTEROL 3 ML NEB INHALATION SCH ×3 (03:41→12:12)
[2018-01-21 05:59] VITALS: BP 136/76; PULSE 104; RESP 24; TEMP 97.1
[2018-01-21] MEDS: busPIRone HCl 5 MG TAB PO SCH (07:25)
[2018-01-21] MEDS ORDERED: NON-FORMULARY DRUG (Tiotropium Bromide [Spiriva] 1 CAP) INHALATION SCH (08:00)
[2018-01-21] MEDS ORDERED: guaiFENesin-DM 600/30MG 1 EACH TAB.ER.12H PO SCH (09:00)
[2018-01-21] MEDS ORDERED: predniSONE 10 MG TAB PO SCH (09:00)
[2018-01-21] MEDS ORDERED: FUROSEMIDE 40 MG TAB PO SCH (09:00)
--- NOTE | 2018-01-21 09:47 | XR ---
EXAMINATION TYPE: XR chest 2V DATE OF EXAM: 01/21/2018 COMPARISON: Prior chest x-ray 01/20/2018 HISTORY: Pneumonia TECHNIQUE: Frontal and lateral views of the chest are obtained. FINDINGS: Prominent lung volumes suggest underlying COPD. Interstitial changes are again noted withi n the lungs. Emphysematous changes suspected at the apices, increased lucency present within the lung s at this level. Some bandlike areas of increased attenuation may represent scarring bilaterally. Car diac mediastinal silhouette, pulmonary vascularity and evie not significantly changed. Bibasilar area s of increased attenuation are stable. IMPRESSION: Emphysema, correlate for pneumonia, follow-up recommended. There are likely areas of sca rring. Interstitial lung disease.
--- NOTE | 2018-01-21 10:00 | CDI ---
Last Revision, January 2017 Documentation Clarification Form Date: 01/21/2018 9:42:10 AM From: Kalli Tran RN, CCDS Admit Date: 01/20/2018 3:24:00 PM Patient Name: Dev Wesley Visit Number: [id number] ATTENTION: The Clinical Documentation Specialists (CDI) and [facility] Coding Staff appreciate your assistance in clarifying documentation. Please respond to the clarification below the line at the bottom and electronically sign. The CDI & [facility] Coding staff will review the response and follow-up if needed. Please note: Queries are made part of the Legal Health Record. If you have any questions, please contact the author of this message via ITS. Suman Peacock MD Pneumonia was documented in your H&P and requires further specificity to accurately reflect the patient's severity of illness. History/Risk Factors: Pseudomonas lung colonization with recurrent pneumonias, COPD, chronic normocytic anemia Clinical Indicators: 01/20 H&P: "patient has pseudomonas colonization in the lung. Possible reactivation of pneumonia from his Pseudomonas." WBC/Left shift: 4.6/3.9 CXR: Pneumonia with interstitial lung disease and bullous emphysematous change H&P: Lung/Breathing assessment: PULMONARY: Rhonchus breath sounds, decreased air entry into bilateral lung pichardo. Treatment: Antibiotics: Levaquin 750 mg IVPB X1, Zosyn 3.375 IVPB x1 dose further doses of ABX are held for comfort measures Mucinex 1 tab PO QD O2: 5-6L High Flow Nasal Cannula 2l IVF Bolus Breathing TX: none administered- Duoneb D/C for comfort measures In order to capture the severity of condition, please clarify if the condition signifies and you are treating for before the patient was placed on comfort measures: Aspiration Pneumonia, identify if: Due to solids or liquids Gram Negative Pneumonia Due to Strep Due to Staph Due to E. coli Other bacteria (please specify) Other, please specify Unable to determine Please continue to document in your progress notes and discharge summary in order to capture severity of illness and risk of mortality. Include clinical findings that support your diagnosis. irrelavent query MTDD
--- NOTE | 2018-01-21 10:14 | CDI ---
Last Revision, January 2017 Documentation Clarification Form Date: 01/21/2018 10:00:59 AM From: Kalli Tran RN, CCDS Admit Date: 01/20/2018 3:24:00 PM Patient Name: Dev Wesley Visit Number: [id number] ATTENTION: The Clinical Documentation Specialists (CDI) and [facility] Coding Staff appreciate your assistance in clarifying documentation. Please respond to the clarification below the line at the bottom and electronically sign. The CDI & [facility] Coding staff will review the response and follow-up if needed. Please note: Queries are made part of the Legal Health Record. If you have any questions, please contact the author of this message via ITS. Suman Peacock MD The patient presented with the following respiratory symptoms: respiratory distress History/Risk Factors: COPD, pneumonia, pseudomonas colonization in the lungs Tobacco use: Former smoker Home oxygen: no documented Hx of home O2 Clinical Indicators: 01/20 H&P: " appears to be lethargic sick is in moderate respiratory distress and 5 L of oxygen. PULMONARY: Shortness of breath which is chronic and cough with brownish sputum production. PULMONARY: Rhonchus breath sounds, decreased air entry into bilateral lung pichardo Vital signs: temp 101.2, HR 111, RR 22--27, B/P 111/49, Spo2 97% on 5l NC Pulse oximetry: 92-100% on 5-6L High Flow Nasal Cannula ABG/CBG: not checked as family opted for comfort measures Treatment: Breathing TX: Duoneb INH Q 4 hrs OTC Pulse ox PRN unit protocol O2: 5-6 L high flow nasal cannula In your professional opinion, can you please clarify if these findings signify one of the following conditions? Acuity: Acute Acute on Chronic Specificity: Respiratory Failure, further specify (if known): With hypercapnia? With hypoxia? Other Diagnosis, please specify Unable to determine Please continue to document in your progress notes and discharge summary in order to capture severity of illness and risk of mortality. Include clinical findings that support your diagnosis. 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
--- NOTE | 2018-01-21 10:38 | CDI ---
Last Revision, January 2017 Documentation Clarification Form Date: 01/21/2018 10:15:49 AM From: Kalli Tran RN, CCDS Admit Date: 01/20/2018 3:24:00 PM Patient Name: Dev Wesley Visit Number: [id number] ATTENTION: The Clinical Documentation Specialists (CDI) and [facility] Coding Staff appreciate your assistance in clarifying documentation. Please respond to the clarification below the line at the bottom and electronically sign. The CDI & [facility] Coding staff will review the response and follow-up if needed. Please note: Queries are made part of the Legal Health Record. If you have any questions, please contact the author of this message via ITS. Suman Peacock MD A diagnosis of chronic normocytic anemia lacks specificity to accurately reflect your patients severity of condition and clarification is needed. History/Risk Factors: Chronic normocytic anemia, hx of prostate ca with radiation, COPD, Clinical indicators: Hemoglobin: 9.4 Hematocrit: 28.9 Treatment: Monitoring labs In order to capture the severity of condition, please clarify the type of anemia and etiology if known: Chronic blood loss anemia Iron deficiency anemia Anemia due to malignancy Nutritional anemia Anemia of chronic disease Unable to determine Other, please specify Please continue to document in your progress notes and discharge summary in order to capture severity of illness and risk of mortality. Include clinical findings that support your diagnosis. Unable to determine MTDD
[2018-01-21] MEDS ORDERED: CALCIUM CARBONATE 500 MG CHEWABLE PO SCH (12:00)
[2018-01-21] MEDS ORDERED: MULTIVITAMINS, THERA 1 EACH TAB PO SCH (12:00)
[2018-01-21] MEDS ORDERED: LEVOFLOXACIN 750 MG TAB PO SCH (16:00)
--- NOTE | 2018-01-21 16:11 | P.DS ---
Providers Date of admission: 01/20/18 15:24 Attending physician: Suman Zheng Primary care physician: [facility] Course: Patient is being discharged home with hospice. Please refer to my dictation of H&P from yesterday for further details. Patient Condition at Discharge: Stable Plan - Discharge Summary New Discharge Prescriptions: No Action Tamsulosin [Flomax] 0.4 mg PO HS Aspirin 81 mg PO HS Fluticasone/Salmeterol [Advair 500-50 Diskus] 1 puff INHALATION RT-BID Simvastatin [Zocor] 10 mg PO HS guaiFENesin-DM 600/30MG [Mucinex Dm] 1 tab PO DAILY Melatonin 3 mg PO HS busPIRone HCl [Buspar] 5 mg PO BID Calcium Carbonate [Calcium] 600 mg PO DAILY Albuterol Nebulized [Ventolin Nebulized] 2.5 mg INHALATION RT-TID Citalopram Hydrobromide [CeleXA] 40 mg PO HS Nystatin 100,000 Unit/ml Susp [Mycostatin Oral Susp] 4 ml PO QID Furosemide [Lasix] 40 mg PO DAILY Multivit-Min/FA/Lycopen/Lutein [Centrum Silver Tablet] 1 tab PO DAILY Theophylline 12 Hour [Yevgeniy-Dur] 300 mg PO BID ALPRAZolam [Xanax] 1 mg PO DAILY PRN PRN Reason: Anxiety diphenhydrAMINE [Benadryl] 25 mg PO HS PRN PRN Reason: Allergy Symptoms Tiotropium [place] [Spiriva] 1 cap INHALATION RT-DAILY predniSONE See Taper PO DAILY Fidaxomicin [Dificid] 200 mg PO BID #20 tablet Cholestyramine (with Sugar) [Questran Packet] 4 gm PO QID 5 Days #20 packet Lactobacillus Acidoph & Bulgar [Lactinex] 1 each PO BID #20 packet Nystatin 100,000 Unit/ml Susp [Mycostatin Oral Susp] 500,000 unit PO QID 3 Days #1 bottle Discharge Medication List Aspirin 81 mg PO HS 06/02/14 [History] Fluticasone/Salmeterol [Advair 500-50 Diskus] 1 puff INHALATION RT-BID 06/02/14 [History] Tamsulosin [Flomax] 0.4 mg PO HS 06/02/14 [History] Simvastatin [Zocor] 10 mg PO HS 08/27/14 [History] guaiFENesin-DM 600/30MG [Mucinex Dm] 1 tab PO DAILY 02/13/16 [History] Calcium Carbonate [Calcium] 600 mg PO DAILY 02/24/17 [History] Melatonin 3 mg PO HS 02/24/17 [History] busPIRone HCl [Buspar] 5 mg PO BID 02/24/17 [History] Albuterol Nebulized [Ventolin Nebulized] 2.5 mg INHALATION RT-TID 04/01/17 [ History] Citalopram Hydrobromide [CeleXA] 40 mg PO HS 04/24/17 [History] Furosemide [Lasix] 40 mg PO DAILY 04/24/17 [History] Multivit-Min/FA/Lycopen/Lutein [Centrum Silver Tablet] 1 tab PO DAILY 04/24/17 [ History] Nystatin 100,000 Unit/ml Susp [Mycostatin Oral Susp] 4 ml PO QID 04/24/17 [ History] ALPRAZolam [Xanax] 1 mg PO DAILY PRN 01/04/18 [History] Theophylline 12 Hour [Yevgeniy-Dur] 300 mg PO BID 01/04/18 [History] Tiotropium [place] [Spiriva] 1 cap INHALATION RT-DAILY 01/04/18 [History] diphenhydrAMINE [Benadryl] 25 mg PO HS PRN 01/04/18 [History] predniSONE See Taper PO DAILY 01/04/18 [History] Fidaxomicin [Dificid] 200 mg PO BID #20 tablet 01/13/18 [Rx] Cholestyramine (with Sugar) [Questran Packet] 4 gm PO QID 5 Days #20 packet [Rx] Lactobacillus Acidoph & Bulgar [Lactinex] 1 each PO BID #20 packet 01/17/18 [Rx] Nystatin 100,000 Unit/ml Susp [Mycostatin Oral Susp] 500,000 unit PO QID 3 Days #1 bottle 01/17/18 [Rx] Follow up Appointment(s)/Referral(s): [facility] Visiting Nurse, [NON-STAFF] - 1 Week Patient Instructions/Handouts: Pneumonitis (DC) Activity/Diet/Wound Care/Special Instructions: pt going home with [facility] No home meds needed Discharge Disposition: HOME WITH HOSPICE
== END 2018-01-21 15:08 | disposition hospice, home (50) | DRG 178 ==
LOC: EC 13:36 → 4MS4W 15:24
PROVIDERS: ADMIT Internal Medicine; ATTEND Internal Medicine
DX: J15.1 Pneumonia due to Pseudomonas (principal); J44.0 Chronic obstructive pulmonary disease with (acute) lower respiratory infection; R64 Cachexia; J96.12 Chronic respiratory failure with hypercapnia; R53.1 Weakness; Z51.5 Encounter for palliative care; D64.9 Anemia, unspecified; E11.9 Type 2 diabetes mellitus without complications; E78.5 Hyperlipidemia, unspecified; E86.0 Dehydration; F03.90 Unspecified dementia, unspecified severity, without behavioral disturbance, psychotic disturbance, mood disturbance, and anxiety; F32.9 Major depressive disorder, single episode, unspecified; F41.9 Anxiety disorder, unspecified; N40.0 Benign prostatic hyperplasia without lower urinary tract symptoms; R62.7 Adult failure to thrive; Z66 Do not resuscitate; Z80.8 Family history of malignant neoplasm of other organs or systems; Z85.46 Personal history of malignant neoplasm of prostate; Z85.828 Personal history of other malignant neoplasm of skin; Z87.891 Personal history of nicotine dependence
CPT/HCPCS: 36415; 71046; 80053; 81003; 82550; 82553; 83605; 83735; 85025; 87040; 93005; 94640; 96361; 96365; 99285

== ENCOUNTER 2018-01-26 09:57 | Inpatient (IN) | payer MEDICARE, OTHER ==
[2018-01-26] MEDS ORDERED: SODIUM CHLORIDE 0.9% 1,000 ML IV STA (10:07)
[2018-01-26] MEDS ORDERED: MAGNESIUM SULFATE-D5W PMX 1 GM in DEXTROSE/WATER 1 100ML.BAG IVPB STA (10:07)
[2018-01-26] MEDS ORDERED: IPRATROPIUM-ALBUTEROL 3 ML NEB INHALATION STA (10:07)
--- NOTE | 2018-01-26 10:16 | ED ---
SOB HPI - General Stated Complaint: Sob Time Seen by Provider: 01/26/18 10:00 Source: patient, family, EMS, RN notes reviewed, old records reviewed Mode of arrival: EMS - History of Present Illness Initial Comments: This 82-year-old male with a history of COPD with recent admissions to this facility history of C. diff recently pneumonia who is back today with shortness of breath and started sometime this morning. He is on home oxygen he had 80% saturation on home oxygen increased 100% he did require a nebulizer treatment and IV steroids and BiPAP and route by EMS. He presents to the emergency department still in extremitas difficulty breathing with diffuse wheezing though he does seem to feel better after the initial treatment was started. No chest pain reported no fevers chills or sweats. MD Complaint: shortness of breath - Related Data Home Medications Medication Instructions Recorded Confirmed Fluticasone/Salmeterol [Advair 1 puff INHALATION RT-BID 06/02/14 01/26/18 500-50 Diskus] Tamsulosin [Flomax] 0.4 mg PO HS 06/02/14 01/26/18 guaiFENesin-DM 600/30MG [Mucinex 1 tab PO BID 02/13/16 01/26/18 Dm] busPIRone HCl [Buspar] 5 mg PO BID 02/24/17 01/26/18 Albuterol Nebulized [Ventolin 2.5 mg INHALATION RT-TID 04/01/17 01/26/18 Nebulized] Citalopram Hydrobromide [CeleXA] 40 mg PO HS 04/24/17 01/26/18 Furosemide [Lasix] 40 mg PO DAILY 04/24/17 01/26/18 Multivit-Min/FA/Lycopen/Lutein 1 tab PO DAILY 04/24/17 01/26/18 [Centrum Silver Tablet] ALPRAZolam [Xanax] 1 mg PO HS PRN 01/04/18 01/26/18 Theophylline 12 Hour [Yevgeniy-Dur] 300 mg PO BID 01/04/18 01/26/18 Tiotropium [place] [Spiriva] 1 cap INHALATION RT-DAILY 01/04/18 01/26/18 diphenhydrAMINE [Benadryl] 25 mg PO HS PRN 01/04/18 01/26/18 predniSONE 10 mg PO DAILY 01/26/18 01/26/18 Previous Rx's Medication Instructions Recorded Fidaxomicin [Dificid] 200 mg PO BID #20 tablet 01/13/18 Allergies Allergy/AdvReac Type Severity Reaction Status Date / Time No Known Allergies Allergy Verified 01/26/18 12:03 Review of Systems ROS Statement: Those systems with pertinent positive or pertinent negative responses have been documented in the HPI. ROS Other: All systems not noted in ROS Statement are negative. Past Medical History Past Medical History: Cancer, COPD, Hyperlipidemia, Pneumonia, Prostate Disorder Additional Past Medical History / Comment(s): bilateral pneumonia. COPD, pneumonia with sepsis, 2007 prostate cancer treated by radiation therapy, skin cancer with removal, normocytic anemia, cervical DDD. 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 Past Anesthesia/Blood Transfusion Reactions: No Reported Reaction Past Psychological History: Anxiety, Depression Additional Psychological History / Comment(s): and lives with family home with his . Retired. No recent travel. no experience. No animal exposures Smoking Status: Former smoker Past Alcohol Use History: None Reported Additional Past Alcohol Use History / Comment(s): SMOKED X 40 YEARS 2PPD QUIT 1991 Past Drug Use History: None Reported - Past Family History Mother Family Medical History: No Reported History Father Family Medical History: Cancer Additional Family Medical History / Comment(s): spine CA which spread to bone CA General Exam - General Exam Comments Initial Comments: This a well-developed asthenic appearing male who is awake alert with audible wheezing General appearance: alert, anxious, in distress Head exam: Present: atraumatic, normocephalic, normal inspection Eye exam: Present: normal appearance, PERRL, EOMI. Absent: scleral icterus, conjunctival injection, periorbital swelling ENT exam: Present: mucous membranes dry Neck exam: Present: normal inspection. Absent: tenderness, meningismus, lymphadenopathy Respiratory exam: Present: wheezes, accessory muscle use, decreased breath sounds. Absent: respiratory distress, rales, rhonchi, stridor Cardiovascular Exam: Present: tachycardia. Absent: systolic murmur, diastolic murmur, rubs, gallop, clicks GI/Abdominal exam: Present: soft, normal bowel sounds. Absent: distended, tenderness, guarding, rebound, rigid Extremities exam: Present: full ROM, normal capillary refill, pedal edema. Absent: tenderness, joint swelling, calf tenderness Back exam: Present: normal inspection Neurological exam: Present: alert, oriented X3, CN II-XII intact Psychiatric exam: Present: normal affect, normal mood Skin exam: Present: warm, dry, intact, normal color. Absent: rash Course Vital Signs 01/26/18 01/26/18 01/26/18 10:08 10:15 10:16 Temperature 97.9 F Pulse Rate 126 H 151 H Respiratory 24 Rate Blood Pressure 146/71 O2 Sat by Pulse 100 100 Oximetry 01/26/18 01/26/18 01/26/18 10:26 11:00 11:26 Temperature Pulse Rate 128 H 125 H 112 H Respiratory 20 18 Rate Blood Pressure 108/89 110/65 O2 Sat by Pulse 89 L 91 L Oximetry 01/26/18 01/26/18 12:00 13:00 Temperature Pulse Rate 112 H 111 H Respiratory 16 20 Rate Blood Pressure 104/66 110/65 O2 Sat by Pulse 93 L 92 L Oximetry - Reevaluation(s) Reevaluation #1: 01/26/18 13:33 Reevaluation the patient reveals some mild improvement in his breathing abilities. Reevaluation #2: 01/26/18 13:33 The patient require IV Cardizem. Medical Decision Making - Medical Decision Making I did discuss findings with the patient family as well as with and patient will be admitted with consultation by pulmonary medicine and cardiology. Per the patient's 's statements patient does not want oral tracheal intubation or advanced cardiac life support performed on him. - Lab Data Result diagrams: 01/26/18 10:09 01/26/18 10:09 Lab Results 01/26/18 01/26/18 01/26/18 Range/Units 10:09 10:09 10:09 WBC 8.3 (3.8-10.6) k/uL RBC 3.85 L (4.30-5.90) m/uL Hgb 10.8 L (13.0-17.5) gm/dL Hct 33.7 L (39.0-53.0) % MCV 87.4 (80.0-100.0) fL MCH 28.1 (25.0-35.0) pg MCHC 32.2 (31.0-37.0) g/dL RDW 14.6 (11.5-15.5) % Plt Count 210 (150-450) k/uL Neutrophils % 69 % Lymphocytes % 24 % Monocytes % 3 % Eosinophils % 2 % Basophils % 0 % Neutrophils # 5.7 (1.3-7.7) k/uL Lymphocytes # 2.0 (1.0-4.8) k/uL Monocytes # 0.3 (0-1.0) k/uL Eosinophils # 0.1 (0-0.7) k/uL Basophils # 0.0 (0-0.2) k/uL PT (9.0-12.0) sec INR (<1.2) APTT (22.0-30.0) sec Sodium 135 L (137-145) mmol/L Potassium 3.0 L (3.5-5.1) mmol/L Chloride 90 L (98-107) mmol/L Carbon Dioxide 38 H (22-30) mmol/L Anion Gap 7 mmol/L BUN 18 (9-20) mg/dL Creatinine 0.71 (0.66-1.25) mg/dL Est GFR (CKD-EPI)AfAm >90 (>60 ml/min/1.73 sqM) Est GFR (CKD-EPI)NonAf 88 (>60 ml/min/1.73 sqM) Glucose 105 H (74-99) mg/dL Calcium 7.7 L (8.4-10.2) mg/dL Magnesium 1.8 (1.6-2.3) mg/dL Total Bilirubin 1.1 (0.2-1.3) mg/dL AST 28 (17-59) U/L ALT 32 (21-72) U/L Alkaline Phosphatase 54 (38-126) U/L Total Creatine Kinase <20 L (55-170) U/L CK-MB (CK-2) 0.4 (0.0-2.4) ng/mL CK-MB (CK-2) Rel Index Troponin I 0.048 H* (0.000-0.034) ng/mL NT-Pro-B Natriuret Pep pg/mL Total Protein 5.2 L (6.3-8.2) g/dL Albumin 2.4 L (3.5-5.0) g/dL 01/26/18 01/26/18 Range/Units 10:09 10:09 WBC (3.8-10.6) k/uL RBC (4.30-5.90) m/uL Hgb (13.0-17.5) gm/dL Hct (39.0-53.0) % MCV (80.0-100.0) fL MCH (25.0-35.0) pg MCHC (31.0-37.0) g/dL RDW (11.5-15.5) % Plt Count (150-450) k/uL Neutrophils % % Lymphocytes % % Monocytes % % Eosinophils % % Basophils % % Neutrophils # (1.3-7.7) k/uL Lymphocytes # (1.0-4.8) k/uL Monocytes # (0-1.0) k/uL Eosinophils # (0-0.7) k/uL Basophils # (0-0.2) k/uL PT 10.9 (9.0-12.0) sec INR 1.0 (<1.2) APTT 23.1 (22.0-30.0) sec Sodium (137-145) mmol/L Potassium (3.5-5.1) mmol/L Chloride (98-107) mmol/L Carbon Dioxide (22-30) mmol/L Anion Gap mmol/L BUN (9-20) mg/dL Creatinine (0.66-1.25) mg/dL Est GFR (CKD-EPI)AfAm (>60 ml/min/1.73 sqM) Est GFR (CKD-EPI)NonAf (>60 ml/min/1.73 sqM) Glucose (74-99) mg/dL Calcium (8.4-10.2) mg/dL Magnesium (1.6-2.3) mg/dL Total Bilirubin (0.2-1.3) mg/dL AST (17-59) U/L ALT (21-72) U/L Alkaline Phosphatase (38-126) U/L Total Creatine Kinase (55-170) U/L CK-MB (CK-2) (0.0-2.4) ng/mL CK-MB (CK-2) Rel Index Troponin I (0.000-0.034) ng/mL NT-Pro-B Natriuret Pep 607 pg/mL Total Protein (6.3-8.2) g/dL Albumin (3.5-5.0) g/dL - EKG Data -: EKG Interpreted by Me (Gravid atrial fibrillation of 144 QRS 84 QT since QTC 380/492 nonspecific T) - Radiology Data Radiology results: report reviewed ((Reviewed and no definitePathology noted.), image reviewed Critical Care Time Critical Care Time: Yes Critical Care Time: 39 minutes of critical care time which includes initial presentation with history physical labs x-rays discussed with paramedics. Discussed with the patient's regarding the initial sequence of events. Review of old charting Rico reevaluation the patient discussed with the main physician admission orders and documentation of the above Disposition Clinical Impression: Acute exacerbation of chronic obstructive airways disease, Acute respiratory failure, Rapid atrial fibrillation, Hypokalemia, Elevated troponin, Failure of outpatient treatment Disposition: ADMITTED IP TO THIS HOSP Condition: Serious Referrals: Lily Carolina MD [Primary Care Provider] - 1-2 days
[2018-01-26 10:25] LABS: Basophils % (A) 0 %; Eosinophils # (A) 0.1 k/uL (0-0.7); Eosinophils % (A) 2 %; HCT 33.7 % (39.0-53.0); HGB 10.8 gm/dL (13.0-17.5); Lymphocytes % (A) 24 %; MCH 28.1 pg (25.0-35.0); MCHC 32.2 g/dL (31.0-37.0); MCV 87.4 fL (80.0-100.0); Mean Platelet Volume 7.1; Monocytes # (A) 0.3 k/uL (0-1.0); Monocytes % (A) 3 %; Neutrophils # (A) 5.7 k/uL (1.3-7.7); Neutrophils % (A) 69 %; Platelet Count 210 k/uL (150-450); RBC 3.85 m/uL (4.30-5.90); RDW 14.6 % (11.5-15.5); WBC 8.3 k/uL (3.8-10.6)
[2018-01-26] MEDS ORDERED: DILTIAZEM DRIP BOLUS FROM BAG 1 MG SOLN IV ONE (10:34)
[2018-01-26 10:36] LABS: Partial Thromboplastin Time 23.1 sec (22.0-30.0); Prothrombin Time 10.9 sec (9.0-12.0)
[2018-01-26 10:41] LABS: ALT 32 U/L (21-72); AST 28 U/L (17-59); Albumin 2.4 g/dL (3.5-5.0); Alkaline Phosphatase 54 U/L (38-126); Blood Urea Nitrogen 18 mg/dL (9-20); Calcium 7.7 mg/dL (8.4-10.2); Chloride 90 mmol/L (98-107); Glucose 105 mg/dL (74-99); Magnesium 1.8 mg/dL (1.6-2.3); Sodium 135 mmol/L (137-145); Total Bilirubin 1.1 mg/dL (0.2-1.3); Total Protein 5.2 g/dL (6.3-8.2)
[2018-01-26 10:47] LABS: Anion Gap 7 mmol/L; Carbon Dioxide 38 mmol/L (22-30); Creatine Kinase <20 U/L (55-170)
[2018-01-26 11:00] LABS: Creatine Kinase MB 0.4 ng/mL (0.0-2.4)
--- NOTE | 2018-01-26 11:04 | XR ---
EXAMINATION TYPE: XR chest 1V portable DATE OF EXAM: 01/26/2018 HISTORY: Shortness of breath. REFERENCE: Previous study dated 01/21/2018. FINDINGS: The lungs are overinflated. The pulmonary arteries are prominent and there is likely pulmon barry artery hypertension. There is chronic fibrotic change. I could not exclude superimposed pneumonia at the lung bases. Pleural spaces are clear. The heart is not enlarged. IMPRESSION: 1. COPD. 2. PROBABLE PULMONARY HYPERTENSION. 3. CHRONIC INTERSTITIAL CHANGE. 4. I COULD NOT EXCLUDE SUPERIMPOSED BILATERAL LOWER LOBE PNEUMONIAS.
[2018-01-26 11:15] LABS: Troponin I 0.048 ng/mL (0.000-0.034)
[2018-01-26] MEDS: DILTIAZEM 50 MG in SODIUM CHLORIDE 0.9% 40 ML IV SCH ×2 (11:20→23:00)
[2018-01-26] MEDS ORDERED: diphenhydrAMINE 25 MG CAP PO PRN (13:40)
[2018-01-26] MEDS: IPRATROPIUM-ALBUTEROL 3 ML NEB INHALATION SCH ×3 (15:34→23:17)
[2018-01-26] MEDS ORDERED: POTASSIUM CHLORIDE 20 MEQ in WATER FOR INJECTION 1 100ML.BAG IVPB STA (17:17)
--- NOTE | 2018-01-26 17:38 | P.HPIM ---
History of Present Illness 82 years old male with past medical history of COPD, C. diff, hyperlipidemia, pneumonia, prostate cancer treated with radiation therapy, anemia, who presents because of dyspnea. And worsening cough with page phlegm. Patient was found to have probably COPD exacerbation, and the chest x-ray they cannot exclude pneumonia. . Patient's at bedside states that his temperature checked at home it was 101. On admission his temperature was within normal limits. No leukocytosis. Sodium 135. Potassium 3.0. Troponin was elevated at 0.048. He has similar problem in April 2017 when he was admitted with troponin 0.04 has been evaluated by clinic office assistant and recommended medical treatment. EKG showing atrial fibrillation's with RVR. Her creatinine within normal limits. And proBNP is 607. On admission patient was started on Cardizem drip. He was started also on steroids, deficit for his C. diff besides his other regular treatment. Patient states that his bowel movement is more formed today however he continued to be on deficit antibiotic Review of Systems CONSTITUTIONAL: No fever, no malaise, no fatigue. HEENT: No recent visual problems or hearing problems. Denied any sore throat. CARDIOVASCULAR: No orthopnea, PND, no palpitations, no syncope. PULMONARY: No shortness of breath, no cough, no hemoptysis. GASTROINTESTINAL: No diarrhea, no nausea, no vomiting, no abdominal pain. Normoactive bowel sounds. NEUROLOGICAL: No headaches, no weakness, no numbness. HEMATOLOGICAL: Denies any bleeding or petechiae. GENITOURINARY: Denies any burning micturition, frequency, or urgency. MUSCULOSKELETAL/RHEUMATOLOGICAL: Denies any joint pain, swelling, or any muscle pain. ENDOCRINE: Denies any polyuria or polydipsia. Past Medical History Past Medical History: Cancer, COPD, Hyperlipidemia, Pneumonia, Prostate Disorder Additional Past Medical History / Comment(s): bilateral pneumonia. COPD, pneumonia with sepsis, 2007 prostate cancer treated by radiation therapy, skin cancer with removal, normocytic anemia, cervical DDD. 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 Past Anesthesia/Blood Transfusion Reactions: No Reported Reaction Past Psychological History: Anxiety, Depression Additional Psychological History / Comment(s): and lives with family home with his . Retired. No recent travel. no experience. No animal exposures Smoking Status: Former smoker Past Alcohol Use History: None Reported Additional Past Alcohol Use History / Comment(s): SMOKED X 40 YEARS 2PPD QUIT 1991 Past Drug Use History: None Reported - Past Family History Mother Family Medical History: No Reported History Father Family Medical History: Cancer Additional Family Medical History / Comment(s): spine CA which spread to bone CA Medications and Allergies Home Medications Medication Instructions Recorded Confirmed Type Fluticasone/Salmeterol [Advair 1 puff INHALATION RT-BID 06/02/14 01/26/18 History 500-50 Diskus] Tamsulosin [Flomax] 0.4 mg PO HS 06/02/14 01/26/18 History guaiFENesin-DM 600/30MG [Mucinex 1 tab PO BID 02/13/16 01/26/18 History Dm] busPIRone HCl [Buspar] 5 mg PO BID 02/24/17 01/26/18 History Albuterol Nebulized [Ventolin 2.5 mg INHALATION RT-TID 04/01/17 01/26/18 History Nebulized] Citalopram Hydrobromide [CeleXA] 40 mg PO HS 04/24/17 01/26/18 History Furosemide [Lasix] 40 mg PO DAILY 04/24/17 01/26/18 History Multivit-Min/FA/Lycopen/Lutein 1 tab PO DAILY 04/24/17 01/26/18 History [Centrum Silver Tablet] ALPRAZolam [Xanax] 1 mg PO HS PRN 01/04/18 01/26/18 History Theophylline 12 Hour [Yevgeniy-Dur] 300 mg PO BID 01/04/18 01/26/18 History Tiotropium [place] [Spiriva] 1 cap INHALATION RT-DAILY 01/04/18 01/26/18 History diphenhydrAMINE [Benadryl] 25 mg PO HS PRN 01/04/18 01/26/18 History Fidaxomicin [Dificid] 200 mg PO BID #20 tablet 01/13/18 01/26/18 Rx predniSONE 10 mg PO DAILY 01/26/18 01/26/18 History Allergies Allergy/AdvReac Type Severity Reaction Status Date / Time No Known Allergies Allergy Verified 01/26/18 12:03 Physical Exam Vitals: Vital Signs Temp Pulse Resp BP Pulse Ox 01/26/18 16:00 105 H 19 111/65 93 L 01/26/18 15:44 86 01/26/18 15:35 84 01/26/18 15:00 105 H 19 100/63 90 L 01/26/18 14:00 108 H 16 118/67 91 L 01/26/18 13:00 111 H 20 110/65 92 L 01/26/18 12:00 112 H 16 104/66 93 L 01/26/18 11:26 112 H 18 110/65 91 L 01/26/18 11:00 125 H 20 108/89 89 L 01/26/18 10:26 128 H 01/26/18 10:16 97.9 F 151 H 24 146/71 100 01/26/18 10:15 126 H 01/26/18 10:08 100 Intake and Output 01/26/18 01/26/18 01/26/18 06:59 14:59 22:59 Other: Weight 72.57 kg GENERAL: The patient is alert and oriented x3, not in any acute distress. Well developed, well nourished. HEENT: Pupils are round and equally reacting to light. EOMI. No scleral icterus. No conjunctival pallor. Normocephalic, atraumatic. No pharyngeal erythema. No thyromegaly. CARDIOVASCULAR: S1 and S2 present. No murmurs, rubs, or gallops. PULMONARY: Chest is clear to auscultation, no wheezing or crackles. ABDOMEN: Soft, nontender, nondistended, normoactive bowel sounds. No palpable organomegaly. MUSCULOSKELETAL: No joint swelling or deformity. EXTREMITIES: No cyanosis, clubbing, or pedal edema. NEUROLOGICAL: Gross neurological examination did not reveal any focal deficits. SKIN: No rashes. Results CBC & Chem 7: 01/26/18 10:09 01/26/18 10:09 Labs: Abnormal Lab Results - Last 24 Hours (Table) 01/26/18 01/26/18 01/26/18 Range/Units 10:09 10:09 10:09 RBC 3.85 L (4.30-5.90) m/uL Hgb 10.8 L (13.0-17.5) gm/dL Hct 33.7 L (39.0-53.0) % Sodium 135 L (137-145) mmol/L Potassium 3.0 L (3.5-5.1) mmol/L Chloride 90 L (98-107) mmol/L Carbon Dioxide 38 H (22-30) mmol/L Glucose 105 H (74-99) mg/dL Calcium 7.7 L (8.4-10.2) mg/dL Total Creatine Kinase <20 L (55-170) U/L Troponin I 0.048 H* (0.000-0.034) ng/mL Total Protein 5.2 L (6.3-8.2) g/dL Albumin 2.4 L (3.5-5.0) g/dL Assessment and Plan Assessment: Acute COPD exacerbation A. fib with RVR Recent history of C. diff, on antibiotic History of hyperlipidemia History of prostate cancer Plan: This is a pleasant 82 years old male who presents with COPD exacerbation and A. fib. Continue with steroids, antibiotics. Continue with a breathing treatment. Call pulmonary and cardiology consult. Also we'll ask infectious disease team to evaluate the patient. Labs and medication were reviewed.. Continue same treatment. Continue with symptomatic treatment. Resume home medication. Monitor lytes and vitals. DVT and GI prophylaxis. Further recommendations of the clinical course of the patient DVT prophylaxis: Subcutaneous heparin GI Prophylaxis: Pepcid PT/OT: Pending Prognosis is guarded
[2018-01-26] MEDS: methylPREDNISolone SOD SUCCI 125 MG/2 ML VIAL IV SCH ×2 (18:21→23:52)
[2018-01-26] MEDS: SYMBICORT 160-4.5 MCG INHALER INHALATION SCH (19:45)
[2018-01-26] MEDS ORDERED: HEPARIN SODIUM,PORCINE 5,000 UNIT/ML 1 ML VIAL SQ SCH (21:00)
[2018-01-26] MEDS: TAMSULOSIN 0.4 MG CAP.ER.24H PO SCH (21:34)
[2018-01-26] MEDS: FAMOTIDINE 20 MG/2 ML VIAL IV SCH (21:34)
[2018-01-26] MEDS: FIDAXOMICIN 200 MG TABLET PO SCH (21:35)
[2018-01-26] MEDS: guaiFENesin-DM 600/30MG 1 EACH TAB.ER.12H PO SCH (21:35)
[2018-01-26] MEDS: CITALOPRAM HYDROBROMIDE 20 MG TAB PO SCH (21:35)
[2018-01-26] MEDS: busPIRone HCl 5 MG TAB PO SCH (21:35)
[2018-01-26] MEDS: HEPARIN SODIUM,PORCINE 5,000 UNIT/ML 1 ML VIAL SQ SCH (23:53)
[2018-01-27] MEDS: IPRATROPIUM-ALBUTEROL 3 ML NEB INHALATION SCH ×6 (03:15→23:55)
[2018-01-27] MEDS: methylPREDNISolone SOD SUCCI 125 MG/2 ML VIAL IV SCH (06:01)
[2018-01-27] MEDS: SYMBICORT 160-4.5 MCG INHALER INHALATION SCH ×2 (07:15→20:10)
[2018-01-27 07:37] LABS: Basophils % (A) 0 %; Eosinophils % (A) 1 %; HCT 26.1 % (39.0-53.0); Hypochromasia Slight; Lymphocytes # (A) 0.4 k/uL (1.0-4.8); Lymphocytes % (A) 14 %; MCH 27.4 pg (25.0-35.0); MCV 88.6 fL (80.0-100.0); Mean Platelet Volume 7.8; Monocytes # (A) 0.1 k/uL (0-1.0); Monocytes % (A) 2 %; Neutrophils # (A) 2.7 k/uL (1.3-7.7); Neutrophils % (A) 83 %; Platelet Count 190 k/uL (150-450); RBC 2.95 m/uL (4.30-5.90); RDW 14.7 % (11.5-15.5); WBC 3.3 k/uL (3.8-10.6)
[2018-01-27 07:42] LABS: Anion Gap 4 mmol/L; Blood Urea Nitrogen 28 mg/dL (9-20); Calcium 7.6 mg/dL (8.4-10.2); Carbon Dioxide 35 mmol/L (22-30); Chloride 92 mmol/L (98-107); Glucose 130 mg/dL (74-99); Potassium 4.2 mmol/L (3.5-5.1); Sodium 131 mmol/L (137-145)
[2018-01-27 07:49] LABS: HGB 8.1 gm/dL (13.0-17.5)
[2018-01-27] MEDS ORDERED: NON-FORMULARY DRUG (Tiotropium Bromide [Spiriva] 1 CAP) INHALATION SCH (08:00)
--- NOTE | 2018-01-27 09:01 | P.PN ---
Subjective 82 years old male with past medical history of COPD, C. diff, hyperlipidemia, pneumonia, prostate cancer treated with radiation therapy, anemia, who presents because of dyspnea. And worsening cough with page phlegm. Patient was found to have probably COPD exacerbation, and the chest x-ray they cannot exclude pneumonia. . Patient's at bedside states that his temperature checked at home it was 101. On admission his temperature was within normal limits. No leukocytosis. Sodium 135. Potassium 3.0. Troponin was elevated at 0.048. He has similar problem in April 2017 when he was admitted with troponin 0.04 has been evaluated by rn child and recommended medical treatment. EKG showing atrial fibrillation's with RVR. Her creatinine within normal limits. And proBNP is 607. On admission patient was started on Cardizem drip. He was started also on steroids, deficit for his C. diff besides his other regular treatment. Patient states that his bowel movement is more formed today however he continued to be on deficit antibiotic 01/27/2018 Patient lying in bed more calm today and comfortable. Breathing is not labored. On examination there is minimal wheezing. Patient complains from little pressure in his chest. No abdominal pain and his bowel movement has become more formed about twice per day. As per my discussions with the yesterday she was requesting patient to be evaluated for possible rehab placement. PT/OT has been ordered. He has been afebrile heart rate limits on the high side between 100 212. Blood pressure 106/63. And he is saturating 95% on 6 L. WBC 3.3. Hemoglobin 8.1 platelet is 190. Sodium 131. Creatinine 0.6. An troponin 0.048. Patient remains on antibiotic. Breathing treatment and diuretic. Objective - Vital Signs Vital signs: Vital Signs Temp 97.6 F 01/27/18 04:00 Pulse 112 H 01/27/18 07:29 Resp 20 01/27/18 07:15 BP 106/63 01/27/18 04:00 Pulse Ox 95 01/27/18 07:15 Intake & Output 01/26/18 01/27/18 01/27/18 18:59 06:59 18:59 Intake Total 50 Output Total 390 Balance -340 Weight 72.57 kg 46.5 kg 64.7 kg Intake: Intake, IV Titration 50 Amount Diltiazem 50 mg In Sodium 50 Chloride 0.9% 40 ml @ 5 MG/HR 5 mls/hr IV .Q10H [facility] Rx#:[id number] Output: Urine 390 Other: Voiding Method Urinal # Voids 2 - Exam GENERAL: The patient is alert and oriented x3, not in any acute distress. Well developed, well nourished. HEENT: Pupils are round and equally reacting to light. EOMI. No scleral icterus. No conjunctival pallor. Normocephalic, atraumatic. No pharyngeal erythema. No thyromegaly. CARDIOVASCULAR: S1 and S2 present. No murmurs, rubs, or gallops. PULMONARY: Chest is clear to auscultation, no wheezing or crackles. ABDOMEN: Soft, nontender, nondistended, normoactive bowel sounds. No palpable organomegaly. MUSCULOSKELETAL: No joint swelling or deformity. EXTREMITIES: No cyanosis, clubbing, or pedal edema. NEUROLOGICAL: Gross neurological examination did not reveal any focal deficits. SKIN: No rashes. - Labs CBC & Chem 7: 01/27/18 06:24 01/27/18 06:24 Labs: Abnormal Lab Results - Last 24 Hours (Table) 01/26/18 01/26/18 01/26/18 Range/Units 10:09 10:09 10:09 WBC (3.8-10.6) k/uL RBC 3.85 L (4.30-5.90) m/uL Hgb 10.8 L (13.0-17.5) gm/dL Hct 33.7 L (39.0-53.0) % Lymphocytes # (1.0-4.8) k/uL Sodium 135 L (137-145) mmol/L Potassium 3.0 L (3.5-5.1) mmol/L Chloride 90 L (98-107) mmol/L Carbon Dioxide 38 H (22-30) mmol/L BUN (9-20) mg/dL Glucose 105 H (74-99) mg/dL Calcium 7.7 L (8.4-10.2) mg/dL Total Creatine Kinase <20 L (55-170) U/L Troponin I 0.048 H* (0.000-0.034) ng/mL Total Protein 5.2 L (6.3-8.2) g/dL Albumin 2.4 L (3.5-5.0) g/dL 12/10/18 12/10/18 Range/Units 06:24 06:24 WBC 3.3 L (3.8-10.6) k/uL RBC 2.95 L (4.30-5.90) m/uL Hgb 8.1 L D (13.0-17.5) gm/dL Hct 26.1 L (39.0-53.0) % Lymphocytes # 0.4 L (1.0-4.8) k/uL Sodium 131 L (137-145) mmol/L Potassium (3.5-5.1) mmol/L Chloride 92 L (98-107) mmol/L Carbon Dioxide 35 H (22-30) mmol/L BUN 28 H (9-20) mg/dL Glucose 130 H (74-99) mg/dL Calcium 7.6 L (8.4-10.2) mg/dL Total Creatine Kinase (55-170) U/L Troponin I (0.000-0.034) ng/mL Total Protein (6.3-8.2) g/dL Albumin (3.5-5.0) g/dL Assessment and Plan Assessment: Acute COPD exacerbation A. fib with RVR Recent history of C. diff, on antibiotic History of hyperlipidemia History of prostate cancer Plan: This is a pleasant 82 years old male who presents with COPD exacerbation and A. fib. Continue with steroids, antibiotics. Continue with a breathing treatment. Call pulmonary and cardiology consult. Also we'll ask infectious disease team to evaluate the patient. Labs and medication were reviewed.. Continue same treatment. Continue with symptomatic treatment. Resume home medication. Monitor lytes and vitals. DVT and GI prophylaxis. Further recommendations of the clinical course of the patient DVT prophylaxis: Subcutaneous heparin GI Prophylaxis: Pepcid PT/OT: Pending Prognosis is guarded
[2018-01-27] MEDS: DOXYCYCLINE 100 MG in SODIUM CHLORIDE 0.9% 100 ML IVPB SCH ×2 (09:18→22:09)
[2018-01-27] MEDS: FUROSEMIDE 40 MG TAB PO SCH (09:19)
[2018-01-27] MEDS: HEPARIN SODIUM,PORCINE 5,000 UNIT/ML 1 ML VIAL SQ SCH (09:19)
[2018-01-27] MEDS: MULTIVITAMINS, THERA 1 EACH TAB PO SCH (09:19)
[2018-01-27] MEDS: busPIRone HCl 5 MG TAB PO SCH ×2 (09:19→22:10)
[2018-01-27] MEDS: FAMOTIDINE 20 MG/2 ML VIAL IV SCH (09:19)
[2018-01-27] MEDS: FIDAXOMICIN 200 MG TABLET PO SCH ×2 (09:20→23:37)
[2018-01-27] MEDS: THEOPHYLLINE 24 HOUR 300 MG CAP.ER.24H PO SCH (09:20)
[2018-01-27] MEDS: guaiFENesin-DM 600/30MG 1 EACH TAB.ER.12H PO SCH ×2 (09:20→23:38)
--- NOTE | 2018-01-27 14:03 | P.CNPUL ---
History of Present Illness Consult date: 01/27/18 Requesting physician: Kimberly Cortez Reason for consult: dyspnea, other Chief complaint: Weakness, dyspnea History of present illness: This 82-year-old white male patient of Dr. 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 He requires 5 L of oxygen by nasal cannula at home. Presented to the emergency department on 01/26/2018, for evaluation of weakness, increasing shortness of breath, and acute on chronic hypoxemic respiratory failure, patient only had saturations in the 80s on his home oxygen. He was burned to the hospital by ambulance, did require BiPAP support and nebulized treatments. Patient was recently hospitalized for C. diff colitis, and COPD exacerbation. Following that hospitalization, patient was again hospitalized for dyspnea, generalized weakness. Patient has had multiple hospitalizations, is quite debilitated at his baseline, patient was recommended hospice care, to which the patient agreed. Patient went home with [facility], however after he went home he found that some of his pulmonary medications including the nebulized tobramycin would not be continued under hospice care. Patient then change his mind about hospice, he felt that he was misled into signing into hospice. He wants to continue with treatment. He is maintained complaints she states is generalized weakness, poor exercise tolerance, shortness of breath. Patient denied any fever or chills. He has had an increased cough with aguila- colored phlegm production. He has lost around 10-15 pounds in the last several weeks due to decreased appetite. On admission to the emergency department she was found to be in A. fib RVR, new onset. Patient did have some pressure-like sensation in the midsternal area for 2 hours at home which resolved now. He was started on IV Cardizem at 5 mg per hour for rate control, and currently she is in sinus rhythm at a rate of 105 BPM. Chest x-ray showed chronic interstitial changes, however superimposed bilateral lower lobe pneumonias not be totally excluded. His initial blood work showed WBC of 8.3, hemoglobin of 10.8, sodium of 135, potassium is 3.0, chloride is 90, CO2 is 38, BUN was 18 and creatinine 0.71, troponin was 0.048, proBNP was 607, urinalysis was negative. Patient was started on nebulized bronchodilators, empiric antibiotics including doxycycline, he is on deficit for history of C. diff colitis, IV Solu-Medrol, and Symbicort. His sputum culture from 01/06/2018 was positive for pseudomonas aeruginosa with sensitivity to meropenem and Zosyn. Review of Systems All systems: negative Constitutional: Denies chills, Denies fever Eyes: denies blurred vision, denies pain Ears, nose, mouth and throat: Denies headache, Denies sore throat Cardiovascular: Reports decreased exercise tolerance, Reports dyspnea on exertion, Reports edema, Reports irregular heart beat, Reports leg edema, Denies chest pain, Denies shortness of breath Respiratory: Reports cough with sputum, Reports dyspnea, Reports home oxygen, Reports respiratory infections, Denies cough Gastrointestinal: Denies abdominal pain, Denies diarrhea, Denies nausea, Denies vomiting Musculoskeletal: Denies myalgias Musculoskeletal: bilateral: foot swelling Integumentary: Denies pruritus, Denies rash Neurological: Denies numbness, Denies weakness Psychiatric: Denies anxiety, Denies depression Endocrine: Denies fatigue, Denies weight change Past Medical History Past Medical History: Cancer, COPD, Hyperlipidemia, Pneumonia, Prostate Disorder Additional Past Medical History / Comment(s): bilateral pneumonia. COPD, pneumonia with sepsis, 2007 prostate cancer treated by radiation therapy, skin cancer with removal, normocytic anemia, cervical DDD. 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 Past Anesthesia/Blood Transfusion Reactions: No Reported Reaction Past Psychological History: Anxiety, Depression Additional Psychological History / Comment(s): and lives with family home with his . Retired. No recent travel. no experience. No animal exposures Smoking Status: Former smoker Past Alcohol Use History: None Reported Additional Past Alcohol Use History / Comment(s): SMOKED X 40 YEARS 2PPD QUIT 1991 Past Drug Use History: None Reported - Past Family History Mother Family Medical History: No Reported History Father Family Medical History: Cancer Additional Family Medical History / Comment(s): spine CA which spread to bone CA Medications and Allergies Home Medications Medication Instructions Recorded Confirmed Type Fluticasone/Salmeterol [Advair 1 puff INHALATION RT-BID 06/02/14 01/26/18 History 500-50 Diskus] Tamsulosin [Flomax] 0.4 mg PO HS 06/02/14 01/26/18 History guaiFENesin-DM 600/30MG [Mucinex 1 tab PO BID 02/13/16 01/26/18 History Dm] busPIRone HCl [Buspar] 5 mg PO BID 02/24/17 01/26/18 History Albuterol Nebulized [Ventolin 2.5 mg INHALATION RT-TID 04/01/17 01/26/18 History Nebulized] Citalopram Hydrobromide [CeleXA] 40 mg PO HS 04/24/17 01/26/18 History Furosemide [Lasix] 40 mg PO DAILY 04/24/17 01/26/18 History Multivit-Min/FA/Lycopen/Lutein 1 tab PO DAILY 04/24/17 01/26/18 History [Centrum Silver Tablet] ALPRAZolam [Xanax] 1 mg PO HS PRN 01/04/18 01/26/18 History Theophylline 12 Hour [Yevgeniy-Dur] 300 mg PO BID 01/04/18 01/26/18 History Tiotropium [place] [Spiriva] 1 cap INHALATION RT-DAILY 01/04/18 01/26/18 History diphenhydrAMINE [Benadryl] 25 mg PO HS PRN 01/04/18 01/26/18 History Fidaxomicin [Dificid] 200 mg PO BID #20 tablet 01/13/18 01/26/18 Rx predniSONE 10 mg PO DAILY 01/26/18 01/26/18 History Allergies Allergy/AdvReac Type Severity Reaction Status Date / Time No Known Allergies Allergy Verified 01/26/18 12:03 Physical Exam Vitals: Vital Signs Temp Pulse Pulse Resp BP BP Pulse Ox 01/27/18 12:00 97.5 F L 98 20 106/52 94 L 01/27/18 11:22 100 01/27/18 11:08 92 20 01/27/18 08:30 97.4 F L 105 H 20 91/59 90 L 01/27/18 07:29 112 H 01/27/18 07:15 100 20 95 01/27/18 04:00 97.6 F 87 20 106/63 98 01/26/18 23:49 97.5 F L 92 16 105/64 97 01/26/18 20:00 97.3 F L 101 H 20 106/55 95 01/26/18 19:59 106 H 18 01/26/18 19:49 108 H 18 01/26/18 18:01 97 F L 108 H 20 100/52 97 01/26/18 16:00 105 H 19 111/65 93 L 01/26/18 15:44 86 01/26/18 15:35 84 01/26/18 15:00 105 H 19 100/63 90 L 01/26/18 14:00 108 H 16 118/67 91 L 01/26/18 13:00 111 H 20 110/65 92 L Intake and Output 01/26/18 01/27/18 01/27/18 22:59 06:59 14:59 Intake Total 50 222 Output Total 200 190 Balance -150 -190 222 Intake: Intake, IV Titration 50 Amount Diltiazem 50 mg In Sodium 50 Chloride 0.9% 40 ml @ 5 MG/HR 5 mls/hr IV .Q10H [facility] Rx#:[id number] Oral 222 Output: Urine 200 190 Other: Voiding Method Urinal Urinal # Voids 2 Weight 72.57 kg 46.5 kg 64.7 kg GENERAL EXAM: Alert, pleasant 82-year-old white male, thin, mildly short of breath with conversation, on 5 L per nasal cannula, comfortable in no apparent distress. HEAD: Normocephalic/atraumatic. EYES: Normal reaction of pupils, equal size. Conjunctiva pink, sclera white. NOSE: Clear with pink turbinates. THROAT: No erythema or exudates. NECK: No masses, no JVD, no thyroid enlargement, no adenopathy. CHEST: No chest wall deformity. Symmetrical expansion. LUNGS: Equal air entry with coarse Velcro-like crackles at bilateral bases CVS: Regular rate and rhythm, normal S1 and S2, no gallops, no murmurs, no rubs ABDOMEN: Soft, nontender. No hepatosplenomegaly, normal bowel sounds, no guarding or rigidity. EXTREMITIES: No clubbing, 2+ bilateral lower extremity edema no cyanosis, 2+ pulses and upper and lower extremities. MUSCULOSKELETAL: Muscle strength and tone normal. SPINE: No scoliosis or deformity SKIN: No rashes CENTRAL NERVOUS SYSTEM: Alert and oriented -3. No focal deficits, tone is normal in all 4 extremities. PSYCHIATRIC: Alert and oriented -3. Appropriate affect. Intact judgment and insight. Results - Laboratory Findings CBC and BMP: 01/27/18 06:24 01/27/18 06:24 PT/INR, D-dimer PT 10.9 sec (9.0-12.0) 01/26/18 10:09 INR 1.0 (<1.2) 01/26/18 10:09 Abnormal lab findings: Abnormal Labs 01/26/18 01/26/18 01/26/18 10:09 10:09 10:09 WBC RBC 3.85 L Hgb 10.8 L Hct 33.7 L Lymphocytes # Sodium 135 L Potassium 3.0 L Chloride 90 L Carbon Dioxide 38 H BUN Glucose 105 H Calcium 7.7 L Total Creatine Kinase <20 L Troponin I 0.048 H* Total Protein 5.2 L Albumin 2.4 L 01/27/18 01/27/18 06:24 06:24 WBC 3.3 L RBC 2.95 L Hgb 8.1 L D Hct 26.1 L Lymphocytes # 0.4 L Sodium 131 L Potassium Chloride 92 L Carbon Dioxide 35 H BUN 28 H Glucose 130 H Calcium 7.6 L Total Creatine Kinase Troponin I Total Protein Albumin - Diagnostic Findings Chest x-ray: report reviewed, image reviewed Additional studies: EKG reviewed Assessment and Plan Plan: Assessment: #1. Acute on chronic hypoxemic and hypercapnic respiratory failure secondary to acute exacerbation of COPD, chest x-ray has been reviewed, and superimposed pneumonia cannot be completely ruled out on the background of chronic interstitial changes. #2. Advanced prednisone and oxygen dependent COPD with history of recurrent pulmonary infections with pseudomonas aeruginosa, patient is maintained on nebulized tobramycin. Previous FEV1 of 45% of predicted #3. Severe weakness related to overall general medical debility and 2 recent hospitalizations #4. History of hospitalization for C. diff colitis currently on deficit #5. New onset A. fib RVR, with a sinus rhythm #6. Hypokalemia #7. Poor appetite, dehydration #8. Weight loss of 10-12 pounds in the last few weeks #9. Mildly elevated troponin #10. History of prostate cancer status post radiation therapy #11. Anemia #12. Chronic anxiety/depression #13. Previous history of MRSA lung infection Plan: Continue current medical treatment, continue nebulized bronchodilators, antibiotic, IV steroids. We checked with the inpatient pharmacy, and patient can be restarted on his inhaled tobramycin, his last dose was over a month ago. We'll collect sputum culture. Patient is afebrile. Second troponin came back at 0.012. Denies any chest pain right now, he still bringing up a regimen soft skin colored phlegm. His chest x-ray has been reviewed, and superimposed pneumonia cannot be completely ruled out on the background of chronic interstitial changes. I performed a history & physical examination of the patient and discussed their management with my nurse practitioner, Loulou Cross. I reviewed the nurse practitioner's note and agree with the documented findings and plan of care. Lung sounds are coarse crackles bilateral bases. The findings and the impression was discussed with the patient. I attest to the documentation by the nurse practitioner. Time with Patient: Greater than 30
[2018-01-27] MEDS: VERAPAMIL 40 MG TAB PO SCH ×2 (16:36→23:40)
[2018-01-27] MEDS: methylPREDNISolone SOD SUCCI 40 MG/ML 1 ML VIAL IV SCH ×2 (16:36→23:45)
[2018-01-27] MEDS: DILTIAZEM 50 MG in SODIUM CHLORIDE 0.9% 40 ML IV SCH ×2 (16:36→17:29)
--- NOTE | 2018-01-27 17:39 | CONS ---
CONSULTATION Mr. Dev Wesley is an elderly 82-year-old gentleman with a known history of COPD. He has been in and out of the hospital with exacerbation. He came in with complaints of increasing shortness of breath, wheezing, and he was found to be in COPD with exacerbation. While he was here he also had what seems to be a multifocal atrial tachycardia, but there was evidence of a short run of what could possibly be atrial fibrillation. This was about 4 to 5 beats or so. I was asked to see the patient mainly with regards to a possibility of atrial fibrillation. I discussed with the patient and suggested that his COPD and his pulmonary status make him highly likely to have atrial fibrillation, and therefore we will initiate him on Eliquis 2.5 mg b.i.d. I will also add verapamil 40 mg t.i.d., Lopressor 12.5 mg daily to his regimen and see how he does. This patient's hemoglobin is low, and adding an anticoagulant is a matter of concern. Hemoglobin has dropped from 10.8 to 8.1. This could be dilutional as well. His troponin initially was elevated, but the repeat troponin is normal. BNP is also within normal limits. There is no evidence to suggest any congestive heart failure. Clinically he is resting comfortably at the time of my evaluation. PAST MEDICAL HISTORY: Remarkable for: 1. COPD. 2. Hyperlipidemia. 3. Benign prostatic hypertrophy. 4. History of bilateral pneumonia. 5. Previous appendectomy. He had a stress test in 2016, which was a Lexiscan stress test, which was unremarkable for ischemia. His echocardiogram performed in the past also revealed normal systolic function. The last echo that I was able to see in the old chart here in the hospital revealed ejection fraction of 50% to 55% without pulmonary hypertension. MEDICATIONS: Medications at home include: 1. Theophylline. 2. Flomax. 3. Lasix. 4. Celexa. 5. Albuterol inhaler. 6. Prednisone 10 mg daily. Patient does have COPD of steroid-dependent type. PHYSICAL EXAMINATION: Blood pressure is 108/70. Pulse rate is about 88 per minute. It seems to be regular now, but rhythm strips suggest that there was at least one run of atrial fibrillation and also multifocal atrial tachycardia. Heart exam reveals S1, S2 with irregularity in rhythm. Short systolic murmur is noted. Lungs reveal significant decrease in breath sounds bilaterally suggestive of emphysema/COPD. Abdomen is soft, nontender. Lower extremities reveal diminished pulses, trace edema. Central nervous system is grossly within normal limits without any focal deficits. IMPRESSION: 1. Exacerbation of chronic obstructive pulmonary disease. 2. History of multifocal atrial tachycardia with very brief short runs of atrial fibrillation. 3. History of hypertension. RECOMMENDATIONS: I am recommending that we start him on verapamil 40 mg t.i.d., Lopressor 12.5 mg every morning, perform echocardiogram. I will start him on a small dose of Eliquis 2.5 mg b.i.d. and will check a CBC in the morning. Based on clinical course, I will make further recommendations. Prognosis remains guarded. I discussed my thoughts in detail with the patient. He has a high bleeding risk, given the fact he is on steroids and is of advanced age. Thank you very much for the consult. SAL / ASHLI: [id number] /
[2018-01-27] MEDS ORDERED: NACL 0.225% INHALATION SCH (20:00)
[2018-01-27] MEDS ORDERED: TOBRAMYCIN INHALATION SCH (20:00)
[2018-01-27] MEDS: APIXABAN 2.5 MG TABLET PO SCH (22:10)
[2018-01-27] MEDS: TAMSULOSIN 0.4 MG CAP.ER.24H PO SCH (22:10)
[2018-01-27] MEDS: ALPRAZolam 1 MG TAB PO PRN (22:10)
[2018-01-27] MEDS: FAMOTIDINE 20 MG TAB PO SCH (22:10)
[2018-01-27] MEDS: CITALOPRAM HYDROBROMIDE 20 MG TAB PO SCH (22:10)
--- NOTE | 2018-01-27 23:28 | P.CONS ---
History of Present Illness - Reason for Consult Consult date: 01/27/18 - Chief Complaint Weakness - History of Present Illness 82-year-old male who has a history of multiple recent hospitalizations with multiple underlying medical illnesses that include coronary artery disease, recent difficult to treat Clostridium difficile colitis , and COPD with chronic Pseudomonas colonization and progressive lung disease. Presents to Hospital feeling poorly with shortness of breath fatigue and malaise. Upon evaluation there was evidence of atrial fibrillation with a rapid ventricular response. It was thought this was underlying etiology of the current acute illness and with treatment has been feeling somewhat better. The condition is discussed with the patient's who is at this time working toward the patient's transfer to rehab to try to improve his status. He is feeling considerably better since his admission. He is having no further diarrhea. His appetite is adequate. History of chronic shortness of breath and weakness has improved. Review of Systems HEENT:Denies headache or acute visual change. Denies sinus or mouth discomforts. Denies neck stiffness or pain. Denies significant oral cavity pain. Denies difficulty on swallowing. Lungs: Shortness of breath is about his baseline. Not having any significant sputum production at this time. No hemoptysis Cardiovascular: Shortness of breath is now at baseline. Was very short of breath it's not resolved with the resolution of his rapid ventricular response from his new atrial fibrillation. No chest pain. Does have dyspnea with exertion but no orthopnea no syncope. Gastrointestinal:Denies nausea, vomiting, diarrhea has resolved. No melena or hematochezia Musculoskeletal: Significant generalized weakness difficulty with ambulation Skin: Denies new rash or lesions. No new ulcers or wounds are related.. Neuro: Denies headache or visual change. Denies any new onset weakness or difficulty with ambulation. Denies falls or seizures. Psychiatric:Denies anxiety or depression. Endocrine: Denies significant fatigue, denies significant weight loss or weight gain. Past Medical History Past Medical History: Cancer, COPD, Hyperlipidemia, Pneumonia, Prostate Disorder Additional Past Medical History / Comment(s): bilateral pneumonia. COPD, pneumonia with sepsis, 2007 prostate cancer treated by radiation therapy, skin cancer with removal, normocytic anemia, cervical DDD. 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 Past Anesthesia/Blood Transfusion Reactions: No Reported Reaction Past Psychological History: Anxiety, Depression Additional Psychological History / Comment(s): and lives with family home with his . This is his second . for the first time for 21 years relates he had multiple affairs resulting in the divorce. 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 No recent travel. no experience. No animal exposures Smoking Status: Former smoker Past Alcohol Use History: None Reported Additional Past Alcohol Use History / Comment(s): SMOKED X 40 YEARS 2PPD QUIT 1991 Past Drug Use History: None Reported - Past Family History Mother Family Medical History: No Reported History Father Family Medical History: Cancer Additional Family Medical History / Comment(s): spine CA which spread to bone CA Medications and Allergies Home Medications and Allergies Comment(s): Current Medications Albuterol/Ipratropium (Duoneb 0.5 Mg-3 Mg/3 Ml Soln) 3 ml INHALATION RT-Q4H [facility] Last Admin: 01/27/18 20:10 Dose: 3 ml Alprazolam (Xanax) 1 mg PO HS PRN PRN Reason: Anxiety Last Admin: 01/27/18 22:10 Dose: 1 mg Apixaban (Eliquis) 2.5 mg PO BID [facility] Last Admin: 01/27/18 22:10 Dose: 2.5 mg Budesonide/Formoterol Fumarate (Symbicort 160-4.5 Mcg Inhaler) 2 puff INHALATION RT-BID [facility] Last Admin: 01/27/18 20:10 Dose: 2 puff Buspirone HCl (Buspar) 5 mg PO BID [facility] Last Admin: 01/27/18 22:10 Dose: 5 mg Citalopram Hydrobromide (Celexa) 40 mg PO HS [facility] Last Admin: 01/27/18 22:10 Dose: 40 mg Tobramycin Sulfate 0.3 gm/ (Sodium Chloride 7.5 ml) 0 gm INHALATION RT-BID [facility] Diphenhydramine HCl (Benadryl) 25 mg PO HS PRN PRN Reason: Allergy Symptoms Famotidine (Pepcid) 20 mg PO Q12HR [facility] Last Admin: 01/27/18 22:10 Dose: 20 mg Fidaxomicin (Dificid) 200 mg PO BID [facility] Stop: 02/05/18 21:01 Last Admin: 01/27/18 09:20 Dose: 200 mg Furosemide (Lasix) 40 mg PO DAILY [facility] Last Admin: 01/27/18 09:19 Dose: 40 mg Guaifenesin/Dextromethorphan (Mucinex Dm) 1 each PO BID [facility] Last Admin: 01/27/18 09:20 Dose: 1 each Diltiazem HCl 50 mg/ Sodium (Chloride) 50 mls @ 5 mls/hr IV .Q10H [facility] Last Admin: 01/27/18 17:29 Dose: Not Given Doxycycline Hyclate 100 mg/ (Sodium Chloride) 100 mls @ 100 mls/hr IVPB Q12HR [facility] Last Admin: 01/27/18 22:09 Dose: 100 mls/hr Methylprednisolone Sodium Succinate (Solu-Medrol) 40 mg IV Q8HR [facility] Last Admin: 01/27/18 16:36 Dose: 40 mg Metoprolol Tartrate (Lopressor) 12.5 mg PO DAILY [facility] Multivitamins (Theragran) 1 each PO DAILY [facility] Last Admin: 01/27/18 09:19 Dose: 1 each Tamsulosin HCl (Flomax) 0.4 mg PO HS [facility] Last Admin: 01/27/18 22:10 Dose: 0.4 mg Theophylline (Yevgeniy-24) 600 mg PO DAILY [facility] Last Admin: 01/27/18 09:20 Dose: 600 mg Verapamil HCl (Isoptin) 40 mg PO TID [facility] Last Admin: 01/27/18 16:36 Dose: 40 mg Home Medications Medication Instructions Recorded Confirmed Type Fluticasone/Salmeterol [Advair 1 puff INHALATION RT-BID 06/02/14 01/26/18 History 500-50 Diskus] Tamsulosin [Flomax] 0.4 mg PO HS 06/02/14 01/26/18 History guaiFENesin-DM 600/30MG [Mucinex 1 tab PO BID 02/13/16 01/26/18 History Dm] busPIRone HCl [Buspar] 5 mg PO BID 02/24/17 01/26/18 History Albuterol Nebulized [Ventolin 2.5 mg INHALATION RT-TID 04/01/17 01/26/18 History Nebulized] Citalopram Hydrobromide [CeleXA] 40 mg PO HS 04/24/17 01/26/18 History Furosemide [Lasix] 40 mg PO DAILY 04/24/17 01/26/18 History Multivit-Min/FA/Lycopen/Lutein 1 tab PO DAILY 04/24/17 01/26/18 History [Centrum Silver Tablet] ALPRAZolam [Xanax] 1 mg PO HS PRN 01/04/18 01/26/18 History Theophylline 12 Hour [Yevgeniy-Dur] 300 mg PO BID 01/04/18 01/26/18 History Tiotropium [place] [Spiriva] 1 cap INHALATION RT-DAILY 01/04/18 01/26/18 History diphenhydrAMINE [Benadryl] 25 mg PO HS PRN 01/04/18 01/26/18 History Fidaxomicin [Dificid] 200 mg PO BID #20 tablet 01/13/18 01/26/18 Rx predniSONE 10 mg PO DAILY 01/26/18 01/26/18 History Allergies Allergy/AdvReac Type Severity Reaction Status Date / Time No Known Allergies Allergy Verified 01/26/18 12:03 Physical Exam Vitals: Vital Signs Temp Pulse Pulse Resp BP Pulse Ox 01/27/18 20:20 98 01/27/18 20:12 96 01/27/18 20:00 98.6 F 103 H 20 102/61 92 L 01/27/18 15:46 97.7 F 96 20 107/56 92 L 01/27/18 15:43 96 01/27/18 15:29 95 01/27/18 12:00 97.5 F L 98 20 106/52 94 L 01/27/18 11:22 100 01/27/18 11:08 92 20 01/27/18 08:30 97.4 F L 105 H 20 91/59 90 L 01/27/18 07:29 112 H 01/27/18 07:15 100 20 95 01/27/18 04:00 97.6 F 87 20 106/63 98 01/26/18 23:49 97.5 F L 92 16 105/64 97 Intake and Output 01/27/18 01/27/18 01/28/18 14:59 22:59 06:59 Intake Total 494 Output Total 800 Balance -306 Intake: Intake, IV Titration 50 Amount Diltiazem 50 mg In Sodium 50 Chloride 0.9% 40 ml @ 5 MG/HR 5 mls/hr IV .Q10H [facility] Rx#:[id number] Oral 444 Output: Urine 800 Other: Voiding Method Urinal Weight 64.7 kg 82-year-old male who is on oxygen at 5 L which is his baseline dose relates that he's feeling better since coming to hospital, short of breath and is having potentially some improvement of his stools. HEENT: Anicteric conjunctiva are pink and moist nasal mucosa grossly intact without significant lesions, there is no thrush. Neck: The neck is supple without significant lymphadenopathy or thyromegaly. Lungs: Symmetrical air entry is noted, rare expiratory wheezes are heard no blanca bronchial sounds dullness or egophony Heart: Regular rate and rhythm with an audible S1-S2, no S3 no S4. There is no significant murmur click or rub, PMI was nondisplaced. Abdomen: The abdomen is soft and nondistended, no palpable hepatosplenomegaly, no masses no guarding or rebound has minimal left lower quadrant tenderness Extremities: The upper extremities have excellent pulses they are symmetric, no significant petechiae or telangiectasia. No splinter hemorrhages were noted. The lower extremities are free from significant edema. The peripheral pulses were 2+ and symmetric. Neuro: Awake alert oriented to person place and time. There are no acute new gross focal sensory motor deficits. Results CBC & Chem 7: 01/27/18 06:24 18 06:24 Labs: Abnormal Lab Results - Last 24 Hours (Table) 01/27/18 01/27/18 Range/Units 06:24 06:24 WBC 3.3 L (3.8-10.6) k/uL RBC 2.95 L (4.30-5.90) m/uL Hgb 8.1 L D (13.0-17.5) gm/dL Hct 26.1 L (39.0-53.0) % Lymphocytes # 0.4 L (1.0-4.8) k/uL Sodium 131 L (137-145) mmol/L Chloride 92 L (98-107) mmol/L Carbon Dioxide 35 H (22-30) mmol/L BUN 28 H (9-20) mg/dL Glucose 130 H (74-99) mg/dL Calcium 7.6 L (8.4-10.2) mg/dL Laboratory Results WBC 3.3 k/uL (3.8-10.6) L 01/27/18 06:24 RBC 2.95 m/uL (4.30-5.90) L 01/27/18 06:24 Hgb 8.1 gm/dL (13.0-17.5) L D 01/27/18 06:24 Hct 26.1 % (39.0-53.0) L 01/27/18 06:24 MCV 88.6 fL (80.0-100.0) 01/27/18 06:24 MCH 27.4 pg (25.0-35.0) 01/27/18 06:24 MCHC 31.0 g/dL (31.0-37.0) 01/27/18 06:24 RDW 14.7 % (11.5-15.5) 01/27/18 06:24 Plt Count 190 k/uL (150-450) 01/27/18 06:24 Neutrophils % 83 % 01/27/18 06:24 Lymphocytes % 14 % 01/27/18 06:24 Monocytes % 2 % 01/27/18 06:24 Eosinophils % 1 % 01/27/18 06:24 Basophils % 0 % 01/27/18 06:24 Neutrophils # 2.7 k/uL (1.3-7.7) 01/27/18 06:24 Lymphocytes # 0.4 k/uL (1.0-4.8) L 01/27/18 06:24 Monocytes # 0.1 k/uL (0-1.0) 01/27/18 06:24 Eosinophils # 0.0 k/uL (0-0.7) 01/27/18 06:24 Basophils # 0.0 k/uL (0-0.2) 01/27/18 06:24 Hypochromasia Slight 01/27/18 06:24 PT 10.9 sec (9.0-12.0) 01/26/18 10:09 INR 1.0 (<1.2) 01/26/18 10:09 APTT 23.1 sec (22.0-30.0) 01/26/18 10:09 Sodium 131 mmol/L (137-145) L 01/27/18 06:24 Potassium 4.2 mmol/L (3.5-5.1) 01/27/18 06:24 Chloride 92 mmol/L (98-107) L 01/27/18 06:24 Carbon Dioxide 35 mmol/L (22-30) H 01/27/18 06:24 Anion Gap 4 mmol/L 01/27/18 06:24 BUN 28 mg/dL (9-20) H 01/27/18 06:24 Creatinine 0.68 mg/dL (0.66-1.25) 01/27/18 06:24 Est GFR (CKD-EPI)AfAm >90 (>60 ml/min/1.73 sqM) 01/27/18 06:24 Est GFR (CKD-EPI)NonAf 89 (>60 ml/min/1.73 sqM) 01/27/18 06:24 Glucose 130 mg/dL (74-99) H 01/27/18 06:24 Calcium 7.6 mg/dL (8.4-10.2) L 01/27/18 06:24 Magnesium 1.8 mg/dL (1.6-2.3) 01/26/18 10:09 Total Bilirubin 1.1 mg/dL (0.2-1.3) 01/26/18 10:09 AST 28 U/L (17-59) 01/26/18 10:09 ALT 32 U/L (21-72) 01/26/18 10:09 Alkaline Phosphatase 54 U/L (38-126) 01/26/18 10:09 Total Creatine Kinase <20 U/L (55-170) L 01/26/18 10:09 CK-MB (CK-2) 0.4 ng/mL (0.0-2.4) 01/26/18 10:09 CK-MB (CK-2) Rel Index 01/26/18 10:09 Troponin I <0.012 ng/mL (0.000-0.034) 01/27/18 06:24 NT-Pro-B Natriuret Pep 607 pg/mL 01/26/18 10:09 Total Protein 5.2 g/dL (6.3-8.2) L 01/26/18 10:09 Albumin 2.4 g/dL (3.5-5.0) L 01/26/18 10:09 Assessment and Plan (1) Rapid atrial fibrillation Narrative/Plan: 82-year-old male who has many medical troubles as had multiple recent hospitalizations now presents from home feeling very poorly. Profound fatigue and malaise has occurred. In emergency center was evident that he had atrial fibrillation with a rapid ventricular response. Extremities no feeling considerably better. Still is not at baseline. Is still very weak. Is agreeing to go to rehab so that he has a chance to get some physical therapy and improve his strength so that he is no longer such a burden to his . He is to finish the course of Dificid for his recent recurrent Clostridium difficile colitis. If possible Jose will be given for his chronic pseudomonal infection. Will be going to extended care discharge. We'll avoid all other antibiotic therapy at this time given his recurrent history of C. diff colitis. No other active infections noted at the moment. Current Visit: Yes Status: Acute Code(s): I48.91 - UNSPECIFIED ATRIAL FIBRILLATION SNOMED Code(s): 962457701 (2) Pneumonia due to Pseudomonas aeruginosa Current Visit: No Status: Acute Code(s): J15.1 - PNEUMONIA DUE TO PSEUDOMONAS SNOMED Code(s): 15567985 (3) Acute exacerbation of chronic obstructive airways disease Current Visit: Yes Status: Acute Code(s): J44.1 - CHRONIC OBSTRUCTIVE PULMONARY DISEASE W (ACUTE) EXACERBATION SNOMED Code(s): 352935519
[2018-01-28] MEDS: IPRATROPIUM-ALBUTEROL 3 ML NEB INHALATION SCH ×6 (03:49→23:29)
[2018-01-28] MEDS: DILTIAZEM 50 MG in SODIUM CHLORIDE 0.9% 40 ML IV SCH (06:44)
--- NOTE | 2018-01-28 06:51 | ECHOF ---
Referral Reason:lv function MEASUREMENTS -------- HEIGHT: 177.8 cm WEIGHT: 64.4 kg BP: 106/52 RVIDd: 3.4 cm (< 3.3) IVSd: 1.2 cm (0.6 - 1.1) LVIDd: 4.1 cm (3.9 - 5.3) LVPWd: 1.2 cm (0.6 - 1.1) IVSs: 1.6 cm LVIDs: 2.5 cm LVPWs: 1.5 cm LA Diam: 3.5 cm (2.7 - 3.8) LAESV Index (A-L): 27.86 ml/m Ao Diam: 3.5 cm (2.0 - 3.7) AV Cusp: 2.5 cm (1.5 - 2.6) MV EXCURSION: 14.577 mm (> 18.000) MV EF SLOPE: 85 mm/s (70 - 150) EPSS: 0.8 cm RAP: 5.00 mmHg RVSP: 46.59 mmHg FINDINGS -------- Sinus rhythm. This was a technically adequate study. The left ventricular size is normal. There is borderline concentric left ventricular hypertrophy. Overall left ventricular systolic function is normal with, an EF between 55 - 60 %. The right ventricle is mildly enlarged. Normal LA size by volume 22+/-6 ml/m2. The right atrium is normal in size. There is mild aortic valve sclerosis. The mitral valve is normal. There is trace mitral regurgitation. Mild tricuspid regurgitation present. There is moderate pulmonary hypertension. The right ventric ular systolic pressure, as measured by Doppler, is 46.59mmHg. The pulmonic valve was not well visualized. There is no pulmonic regurgitation present. The aortic root size is normal. Normal inferior vena cava with normal inspiratory collapse consistent with estimated right atrial pre ssure of 5 mmHg. There is no pericardial effusion. CONCLUSIONS -------- 1. Sinus rhythm. 2. This was a technically adequate study. 3. The left ventricular size is normal. 4. There is borderline concentric left ventricular hypertrophy. 5. Overall left ventricular systolic function is normal with, an EF between 55 - 60 %. 6. The right ventricle is mildly enlarged. 7. Normal LA size by volume 22+/-6 ml/m2. 8. There is mild aortic valve sclerosis. 9. The mitral valve is normal. 10. There is trace mitral regurgitation. 11. Mild tricuspid regurgitation present. 12. There is moderate pulmonary hypertension. 13. The pulmonic valve was not well visualized. 14. There is no pulmonic regurgitation present. 15. The aortic root size is normal. 16. Normal inferior vena cava with normal inspiratory collapse consistent with estimated right atrial pressure of 5 mmHg. 17. There is no pericardial effusion. BUSINESS STRATEGY MANAGER: Francisca Rosario RDCS
[2018-01-28] MEDS: SYMBICORT 160-4.5 MCG INHALER INHALATION SCH ×2 (07:02→19:17)
[2018-01-28] MEDS: TOBRAMYCIN SULFATE INHALATION SCH ×4 (07:21→07:22)
[2018-01-28] MEDS: SODIUM CHLORIDE 0.9% INHALATION SCH ×4 (07:21→07:22)
[2018-01-28 07:37] LABS: Basophils % (A) 0 %; Eosinophils % (A) 0 %; HCT 24.4 % (39.0-53.0); HGB 7.8 gm/dL (13.0-17.5); Hypochromasia Slight; Lymphocytes # (A) 0.5 k/uL (1.0-4.8); Lymphocytes % (A) 8 %; MCHC 31.8 g/dL (31.0-37.0); MCV 88.1 fL (80.0-100.0); Mean Platelet Volume 7.4; Monocytes # (A) 0.2 k/uL (0-1.0); Monocytes % (A) 4 %; Neutrophils % (A) 87 %; Platelet Count 203 k/uL (150-450); RBC 2.77 m/uL (4.30-5.90); RDW 14.7 % (11.5-15.5); WBC 5.8 k/uL (3.8-10.6)
[2018-01-28 07:47] LABS: Anion Gap 1 mmol/L; Blood Urea Nitrogen 30 mg/dL (9-20); Calcium 7.4 mg/dL (8.4-10.2); Carbon Dioxide 39 mmol/L (22-30); Chloride 96 mmol/L (98-107); Glucose 124 mg/dL (74-99); Potassium 3.9 mmol/L (3.5-5.1); Sodium 136 mmol/L (137-145)
[2018-01-28] MEDS ORDERED: TOBRAMYCIN SULFATE INHALATION SCH ×4 (08:03→20:00)
[2018-01-28] MEDS ORDERED: SODIUM CHLORIDE 0.9% INHALATION SCH ×4 (08:03→20:00)
[2018-01-28] MEDS: METOPROLOL TARTRATE 12.5 MG TAB PO SCH (08:57)
[2018-01-28] MEDS: busPIRone HCl 5 MG TAB PO SCH ×2 (08:57→22:39)
[2018-01-28] MEDS: MULTIVITAMINS, THERA 1 EACH TAB PO SCH (08:57)
[2018-01-28] MEDS: FUROSEMIDE 40 MG TAB PO SCH (08:57)
[2018-01-28] MEDS: FAMOTIDINE 20 MG TAB PO SCH ×2 (08:57→22:38)
[2018-01-28] MEDS: VERAPAMIL 40 MG TAB PO SCH ×3 (08:57→22:38)
[2018-01-28] MEDS: methylPREDNISolone SOD SUCCI 40 MG/ML 1 ML VIAL IV SCH ×2 (08:57→17:01)
[2018-01-28] MEDS: APIXABAN 2.5 MG TABLET PO SCH ×2 (08:57→22:39)
[2018-01-28] MEDS: FIDAXOMICIN 200 MG TABLET PO SCH ×2 (08:58→22:39)
[2018-01-28] MEDS: THEOPHYLLINE 24 HOUR 300 MG CAP.ER.24H PO SCH (08:58)
[2018-01-28] MEDS: guaiFENesin-DM 600/30MG 1 EACH TAB.ER.12H PO SCH ×2 (08:58→22:39)
--- NOTE | 2018-01-28 10:54 | P.PN ---
Subjective 82 years old male with past medical history of COPD, C. diff, hyperlipidemia, pneumonia, prostate cancer treated with radiation therapy, anemia, who presents because of dyspnea. And worsening cough with page phlegm. Patient was found to have probably COPD exacerbation, and the chest x-ray they cannot exclude pneumonia. . Patient's at bedside states that his temperature checked at home it was 101. On admission his temperature was within normal limits. No leukocytosis. Sodium 135. Potassium 3.0. Troponin was elevated at 0.048. He has similar problem in April 2017 when he was admitted with troponin 0.04 has been evaluated by optician manager and recommended medical treatment. EKG showing atrial fibrillation's with RVR. Her creatinine within normal limits. And proBNP is 607. On admission patient was started on Cardizem drip. He was started also on steroids, deficit for his C. diff besides his other regular treatment. Patient states that his bowel movement is more formed today however he continued to be on deficit antibiotic 01/27/2018 Patient lying in bed more calm today and comfortable. Breathing is not labored. On examination there is minimal wheezing. Patient complains from little pressure in his chest. No abdominal pain and his bowel movement has become more formed about twice per day. As per my discussions with the yesterday she was requesting patient to be evaluated for possible rehab placement. PT/OT has been ordered. He has been afebrile heart rate limits on the high side between 100 212. Blood pressure 106/63. And he is saturating 95% on 6 L. WBC 3.3. Hemoglobin 8.1 platelet is 190. Sodium 131. Creatinine 0.6. An troponin 0.048. Patient remains on antibiotic. Breathing treatment and diuretic. The 1117 Patient looks more stable today and more quiet breathing. His total on oxygen via nasal cannula and saturating 93% on 6 L. Vital signs laps were unremarkable except for mild anemia and, as hyponatremia. convention services manager consulted for possible rehab placement Objective - Vital Signs Vital signs: Vital Signs Temp 97.4 F L 01/28/18 08:00 Pulse 98 01/28/18 08:00 Resp 20 01/28/18 08:00 BP 102/51 01/28/18 08:00 Pulse Ox 93 L 01/28/18 08:00 Intake & Output 01/27/18 01/28/18 01/28/18 18:59 06:59 18:59 Intake Total 494 480 Output Total 800 Balance -306 480 Weight 64.7 kg 54.5 kg Intake: Intake, IV Titration 50 Amount Diltiazem 50 mg In Sodium 50 Chloride 0.9% 40 ml @ 5 MG/HR 5 mls/hr IV .Q10H [facility] Rx#:[id number] Oral 444 480 Output: Urine 800 Other: Voiding Method Urinal # Voids 0 - Exam GENERAL: The patient is alert and oriented x3, not in any acute distress. Well developed, well nourished. HEENT: Pupils are round and equally reacting to light. EOMI. No scleral icterus. No conjunctival pallor. Normocephalic, atraumatic. No pharyngeal erythema. No thyromegaly. CARDIOVASCULAR: S1 and S2 present. No murmurs, rubs, or gallops. PULMONARY: Chest is clear to auscultation, no wheezing or crackles. ABDOMEN: Soft, nontender, nondistended, normoactive bowel sounds. No palpable organomegaly. MUSCULOSKELETAL: No joint swelling or deformity. EXTREMITIES: No cyanosis, clubbing, or pedal edema. NEUROLOGICAL: Gross neurological examination did not reveal any focal deficits. SKIN: No rashes. - Labs CBC & Chem 7: 01/28/18 06:30 01/28/18 06:30 Labs: Abnormal Lab Results - Last 24 Hours (Table) 01/28/18 01/28/18 Range/Units 06:30 06:30 RBC 2.77 L (4.30-5.90) m/uL Hgb 7.8 L (13.0-17.5) gm/dL Hct 24.4 L (39.0-53.0) % Lymphocytes # 0.5 L (1.0-4.8) k/uL Sodium 136 L (137-145) mmol/L Chloride 96 L (98-107) mmol/L Carbon Dioxide 39 H (22-30) mmol/L BUN 30 H (9-20) mg/dL Glucose 124 H (74-99) mg/dL Calcium 7.4 L (8.4-10.2) mg/dL Microbiology - Last 24 Hours (Table) 01/27/18 21:28 Gram Stain - Preliminary Sputum Sputum Culture - Preliminary 01/26/18 10:07 Blood Culture - Preliminary Blood No Growth after 24 hours Assessment and Plan Assessment: Acute COPD exacerbation A. fib with RVR Recent history of C. diff, on antibiotic History of hyperlipidemia History of prostate cancer Plan: This is a pleasant 82 years old male who presents with COPD exacerbation and A. fib. Continue with steroids, antibiotics. Continue with a breathing treatment. Call pulmonary and cardiology consult. Also we'll ask infectious disease team to evaluate the patient. Labs and medication were reviewed.. Continue same treatment. Continue with symptomatic treatment. Resume home medication. Monitor lytes and vitals. DVT and GI prophylaxis. Further recommendations of the clinical course of the patient DVT prophylaxis: Subcutaneous heparin GI Prophylaxis: Pepcid PT/OT: Pending Prognosis is guarded
[2018-01-28 11:17] VITALS: BMI 23.6
--- NOTE | 2018-01-28 13:20 | P.PN ---
Subjective Progress Note Date: 01/28/18 Principal diagnosis: Acute on chronic hypoxemic and hypercapnic respiratory failure secondary to acute exacerbation of COPD, and possible superimposed pseudomonal pneumonia This 82-year-old white male patient of Dr. 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 He requires 5 L of oxygen by nasal cannula at home. Presented to the emergency department on 01/26/2018, for evaluation of weakness, increasing shortness of breath, and acute on chronic hypoxemic respiratory failure, patient only had saturations in the 80s on his home oxygen. He was burned to the hospital by ambulance, did require BiPAP support and nebulized treatments. Patient was recently hospitalized for C. diff colitis, and COPD exacerbation. Following that hospitalization, patient was again hospitalized for dyspnea, generalized weakness. Patient has had multiple hospitalizations, is quite debilitated at his baseline, patient was recommended hospice care, to which the patient agreed. Patient went home with [facility], however after he went home he found that some of his pulmonary medications including the nebulized tobramycin would not be continued under hospice care. Patient then change his mind about hospice, he felt that he was misled into signing into hospice. He wants to continue with treatment. He is maintained complaints she states is generalized weakness, poor exercise tolerance, shortness of breath. Patient denied any fever or chills. He has had an increased cough with aguila- colored phlegm production. He has lost around 10-15 pounds in the last several weeks due to decreased appetite. On admission to the emergency department she was found to be in A. fib RVR, new onset. Patient did have some pressure-like sensation in the midsternal area for 2 hours at home which resolved now. He was started on IV Cardizem at 5 mg per hour for rate control, and currently she is in sinus rhythm at a rate of 105 BPM. Chest x-ray showed chronic interstitial changes, however superimposed bilateral lower lobe pneumonias not be totally excluded. His initial blood work showed WBC of 8.3, hemoglobin of 10.8, sodium of 135, potassium is 3.0, chloride is 90, CO2 is 38, BUN was 18 and creatinine 0.71, troponin was 0.048, proBNP was 607, urinalysis was negative. Patient was started on nebulized bronchodilators, empiric antibiotics including doxycycline, he is on deficit for history of C. diff colitis, IV Solu-Medrol, and Symbicort. His sputum culture from 01/06/2018 was positive for pseudomonas aeruginosa with sensitivity to meropenem and Zosyn. On 01/28/2018 patient seen in follow-up on selective care unit. He is awake and alert, in no acute distress, becomes very dyspneic with any exertion, and his severe generalized weakness. Currently on 6 L per nasal cannula his pulse ox is 90%, afebrile, no chills. Today's labs been reviewed, showed white count of 5.8, hemoglobin is 7.8, sodium is 136, chloride is 96 BUN is 30 creatinine 0.4. Preliminary sputum Gram stain showed many gram-negative bacilli, few gram- positive cocci, cultures pending. Blood culture showed no growth. Patient was seen by ID service in consultation, her condition was noted. She needs inhaled tobramycin has been resumed. Clinically patient is close to his baseline, and arrangements are in progress for rehab placement. Objective - Vital Signs Vital signs: Vital Signs Temp 97.5 F L 01/28/18 12:00 Pulse 99 01/28/18 12:00 Resp 20 01/28/18 12:00 BP 124/57 01/28/18 12:00 Pulse Ox 90 L 01/28/18 12:00 Intake & Output 01/27/18 01/28/18 01/28/18 18:59 06:59 18:59 Intake Total 494 480 Output Total 800 Balance -306 480 Weight 64.7 kg 54.5 kg 74.5 kg Intake: Intake, IV Titration 50 Amount Diltiazem 50 mg In Sodium 50 Chloride 0.9% 40 ml @ 5 MG/HR 5 mls/hr IV .Q10H [facility] Rx#:[id number] Oral 444 480 Output: Urine 800 Other: Voiding Method Urinal # Voids 0 - Exam GENERAL EXAM: Alert, pleasant 82-year-old white male, thin, mildly short of breath with conversation, on 5 L per nasal cannula, comfortable in no apparent distress. HEAD: Normocephalic/atraumatic. EYES: Normal reaction of pupils, equal size. Conjunctiva pink, sclera white. NOSE: Clear with pink turbinates. THROAT: No erythema or exudates. NECK: No masses, no JVD, no thyroid enlargement, no adenopathy. CHEST: No chest wall deformity. Symmetrical expansion. LUNGS: Equal air entry with coarse Velcro-like crackles at bilateral bases CVS: Regular rate and rhythm, normal S1 and S2, no gallops, no murmurs, no rubs ABDOMEN: Soft, nontender. No hepatosplenomegaly, normal bowel sounds, no guarding or rigidity. EXTREMITIES: No clubbing, 2+ bilateral lower extremity edema no cyanosis, 2+ pulses and upper and lower extremities. MUSCULOSKELETAL: Muscle strength and tone normal. SPINE: No scoliosis or deformity SKIN: No rashes CENTRAL NERVOUS SYSTEM: Alert and oriented -3. No focal deficits, tone is normal in all 4 extremities. PSYCHIATRIC: Alert and oriented -3. Appropriate affect. Intact judgment and insight. - Labs CBC & Chem 7: 01/28/18 06:30 01/28/18 06:30 Labs: Abnormal Lab Results - Last 24 Hours (Table) 01/28/18 01/28/18 Range/Units 06:30 06:30 RBC 2.77 L (4.30-5.90) m/uL Hgb 7.8 L (13.0-17.5) gm/dL Hct 24.4 L (39.0-53.0) % Lymphocytes # 0.5 L (1.0-4.8) k/uL Sodium 136 L (137-145) mmol/L Chloride 96 L (98-107) mmol/L Carbon Dioxide 39 H (22-30) mmol/L BUN 30 H (9-20) mg/dL Glucose 124 H (74-99) mg/dL Calcium 7.4 L (8.4-10.2) mg/dL Microbiology - Last 24 Hours (Table) 01/27/18 21:28 Gram Stain - Preliminary Sputum Sputum Culture - Preliminary 01/26/18 10:07 Blood Culture - Preliminary Blood No Growth after 24 hours Assessment and Plan Plan: Assessment: #1. Acute on chronic hypoxemic and hypercapnic respiratory failure secondary to acute exacerbation of COPD, chest x-ray has been reviewed, and superimposed pneumonia cannot be completely ruled out on the background of chronic interstitial changes. #2. Advanced prednisone and oxygen dependent COPD with history of recurrent pulmonary infections with pseudomonas aeruginosa, patient is maintained on nebulized tobramycin. Previous FEV1 of 45% of predicted #3. Severe weakness related to overall general medical debility and 2 recent hospitalizations #4. History of hospitalization for C. diff colitis currently on deficit #5. New onset A. fib RVR, with a sinus rhythm #6. Hypokalemia #7. Poor appetite, dehydration #8. Weight loss of 10-12 pounds in the last few weeks #9. Mildly elevated troponin #10. History of prostate cancer status post radiation therapy #11. Anemia #12. Chronic anxiety/depression #13. Previous history of MRSA lung infection Plan: Continue current medical treatment, IV steroids are being weaned down, continue nebulized bronchodilators. Continue inhaled tobramycin, with the results of the final sputum cultures. Clinically patient denies any worsening dyspnea, he is actually pretty close to his baseline, as have generalized weakness and discharge planning is in progress for rehab Placement after discharge. From pulmonary perspective patient is stable for transfer to rehab today. I performed a history & physical examination of the patient and discussed their management with my nurse practitioner, Loulou Cross. I reviewed the nurse practitioner's note and agree with the documented findings and plan of care. Lung sounds are coarse crackles bilateral bases. The findings and the impression was discussed with the patient. I attest to the documentation by the nurse practitioner. Time with Patient: Less than 30
--- NOTE | 2018-01-28 15:37 | PN ---
PROGRESS NOTE Mr. Garza is actually doing a bit better today. He seems to be breathing somewhat easier. He denies any chest discomfort at the time of my evaluation. Dr. Warren has seen the patient yesterday and he felt that he does have chronic hypercapnic respiratory failure-type picture. He has steroid-dependent COPD. He does have atrial fibrillation and this was discovered on the rhythm strips and EKGs yesterday. In view of this, I suggested that we initiate him on Eliquis 2.5 mg b.i.d. He is a high risk for bleed given his steroid-dependent COPD. His heart rate is very well controlled. He is on a small dose of verapamil and Lopressor 12.5 mg every morning. Echocardiogram was performed and study revealed left ventricle which is of a normal size with mild concentric LVH, preserved contractility with a moderate to pulmonary hypertension, right-sided pressures in the range of 45-50 mmHg. We will continue current medical regimen and watch his hemoglobin closely. I discussed my thoughts in detail with the patient. Thank you very much for the consult. MMSANTIAGOL / IJN: [id number] /
[2018-01-28] MEDS: TOBRAMYCIN 300MG/7.5ML SYRG *FOR INHALATION INHALATION SCH (19:26)
--- NOTE | 2018-01-28 21:59 | P.PN ---
Subjective Progress Note Date: 01/28/18 82-year-old male who has a history of multiple recent hospitalizations with multiple underlying medical illnesses that include coronary artery disease, recent difficult to treat Clostridium difficile colitis , and COPD with chronic Pseudomonas colonization and progressive lung disease. Presents to Hospital feeling poorly with shortness of breath fatigue and malaise. Upon evaluation there was evidence of atrial fibrillation with a rapid ventricular response. It was thought this was underlying etiology of the current acute illness and with treatment has been feeling somewhat better. The condition is discussed with the patient's who is at this time working toward the patient's transfer to rehab to try to improve his status. He is feeling considerably better since his admission. He is having no further diarrhea. His appetite is adequate. History of chronic shortness of breath and weakness has improved. 01/28/2018 patient is feeling slowly better today. Sitting upright in the chair. Strength is improved. No loose stools been noted in the last day. Denies abdominal pain. He's having no chest pain. Shortness of breath is improved. Denies any chest pain no orthopnea or syncope Objective - Vital Signs Vital signs: Vital Signs Temp 97.2 F L 01/28/18 15:15 Pulse 87 01/28/18 20:00 Resp 20 01/28/18 20:00 BP 110/55 01/28/18 20:00 Pulse Ox 99 01/28/18 20:00 Intake & Output 01/28/18 01/28/18 01/29/18 06:59 18:59 06:59 Intake Total 1252 Output Total 150 Balance 1102 Weight 54.5 kg 74.5 kg Intake: Intake, IV Titration 100 Amount Doxycycline 100 mg In 100 Sodium Chloride 0.9% 100 ml @ 100 mls/hr IVPB Q12HR [facility] Rx#:[id number] Oral 1152 Output: Urine 150 Other: Voiding Method Urinal Urinal # Voids 0 - Exam 82-year-old male who is on oxygen at 5 L which is his baseline dose relates that he's feeling better since coming to hospital, short of breath and is having potentially some improvement of his stools. HEENT: Anicteric conjunctiva are pink and moist nasal mucosa grossly intact without significant lesions, there is no thrush. Neck: The neck is supple without significant lymphadenopathy or thyromegaly. Lungs: Symmetrical air entry is noted, rare expiratory wheezes are heard no blanca bronchial sounds dullness or egophony Heart: Regular rate and rhythm with an audible S1-S2, no S3 no S4. There is no significant murmur click or rub, PMI was nondisplaced. Abdomen: The abdomen is soft and nondistended, no palpable hepatosplenomegaly, no masses no guarding or rebound has minimal left lower quadrant tenderness Extremities: The upper extremities have excellent pulses they are symmetric, no significant petechiae or telangiectasia. No splinter hemorrhages were noted. The lower extremities are free from significant edema. The peripheral pulses were 2+ and symmetric. Neuro: Awake alert oriented to person place and time. There are no acute new gross focal sensory motor deficits. - Labs CBC & Chem 7: 01/28/18 06:30 01/28/18 06:30 Labs: Abnormal Lab Results - Last 24 Hours (Table) 01/28/18 01/28/18 Range/Units 06:30 06:30 RBC 2.77 L (4.30-5.90) m/uL Hgb 7.8 L (13.0-17.5) gm/dL Hct 24.4 L (39.0-53.0) % Lymphocytes # 0.5 L (1.0-4.8) k/uL Sodium 136 L (137-145) mmol/L Chloride 96 L (98-107) mmol/L Carbon Dioxide 39 H (22-30) mmol/L BUN 30 H (9-20) mg/dL Glucose 124 H (74-99) mg/dL Calcium 7.4 L (8.4-10.2) mg/dL Microbiology - Last 24 Hours (Table) 01/27/18 21:28 Gram Stain - Preliminary Sputum Sputum Culture - Preliminary 01/26/18 10:07 Blood Culture - Preliminary Blood No Growth after 24 hours Laboratory Results WBC 5.8 k/uL (3.8-10.6) 01/28/18 06:30 RBC 2.77 m/uL (4.30-5.90) L 01/28/18 06:30 Hgb 7.8 gm/dL (13.0-17.5) L 01/28/18 06:30 Hct 24.4 % (39.0-53.0) L 01/28/18 06:30 MCV 88.1 fL (80.0-100.0) 01/28/18 06:30 MCH 28.0 pg (25.0-35.0) 01/28/18 06:30 MCHC 31.8 g/dL (31.0-37.0) 01/28/18 06:30 RDW 14.7 % (11.5-15.5) 01/28/18 06:30 Plt Count 203 k/uL (150-450) 01/28/18 06:30 Neutrophils % 87 % 01/28/18 06:30 Lymphocytes % 8 % 01/28/18 06:30 Monocytes % 4 % 01/28/18 06:30 Eosinophils % 0 % 01/28/18 06:30 Basophils % 0 % 01/28/18 06:30 Neutrophils # 5.0 k/uL (1.3-7.7) 01/28/18 06:30 Lymphocytes # 0.5 k/uL (1.0-4.8) L 01/28/18 06:30 Monocytes # 0.2 k/uL (0-1.0) 01/28/18 06:30 Eosinophils # 0.0 k/uL (0-0.7) 01/28/18 06:30 Basophils # 0.0 k/uL (0-0.2) 01/28/18 06:30 Hypochromasia Slight 01/28/18 06:30 PT 10.9 sec (9.0-12.0) 01/26/18 10:09 INR 1.0 (<1.2) 01/26/18 10:09 APTT 23.1 sec (22.0-30.0) 01/26/18 10:09 Sodium 136 mmol/L (137-145) L 01/28/18 06:30 Potassium 3.9 mmol/L (3.5-5.1) 01/28/18 06:30 Chloride 96 mmol/L (98-107) L 01/28/18 06:30 Carbon Dioxide 39 mmol/L (22-30) H 01/28/18 06:30 Anion Gap 1 mmol/L 01/28/18 06:30 BUN 30 mg/dL (9-20) H 01/28/18 06:30 Creatinine 0.84 mg/dL (0.66-1.25) 01/28/18 06:30 Est GFR (CKD-EPI)AfAm >90 (>60 ml/min/1.73 sqM) 01/28/18 06:30 Est GFR (CKD-EPI)NonAf 82 (>60 ml/min/1.73 sqM) 01/28/18 06:30 Glucose 124 mg/dL (74-99) H 01/28/18 06:30 Calcium 7.4 mg/dL (8.4-10.2) L 01/28/18 06:30 Magnesium 1.8 mg/dL (1.6-2.3) 01/26/18 10:09 Total Bilirubin 1.1 mg/dL (0.2-1.3) 01/26/18 10:09 AST 28 U/L (17-59) 01/26/18 10:09 ALT 32 U/L (21-72) 01/26/18 10:09 Alkaline Phosphatase 54 U/L (38-126) 01/26/18 10:09 Total Creatine Kinase <20 U/L (55-170) L 01/26/18 10:09 CK-MB (CK-2) 0.4 ng/mL (0.0-2.4) 01/26/18 10:09 CK-MB (CK-2) Rel Index 01/26/18 10:09 Troponin I <0.012 ng/mL (0.000-0.034) 01/27/18 06:24 NT-Pro-B Natriuret Pep 607 pg/mL 01/26/18 10:09 Total Protein 5.2 g/dL (6.3-8.2) L 01/26/18 10:09 Albumin 2.4 g/dL (3.5-5.0) L 01/26/18 10:09 Microbiology 01/27/18 21:28 Sputum Gram Stain - Preliminary 01/27/18 21:28 Sputum Sputum Culture - Preliminary 01/26/18 10:07 Blood Blood Culture - Preliminary No Growth after 24 hours Assessment and Plan (1) Rapid atrial fibrillation Narrative/Plan: 82-year-old male who has many medical troubles as had multiple recent hospitalizations now presents from home feeling very poorly. Profound fatigue and malaise has occurred. In emergency center was evident that he had atrial fibrillation with a rapid ventricular response. Extremities no feeling considerably better. Still is not at baseline. Is still very weak. Is agreeing to go to rehab so that he has a chance to get some physical therapy and improve his strength so that he is no longer such a burden to his . He is to finish the course of Dificid for his recent recurrent Clostridium difficile colitis. If possible Jose will be given for his chronic pseudomonal infection. Will be going to extended care discharge. We'll avoid all other antibiotic therapy at this time given his recurrent history of C. diff colitis. No other active infections noted at the moment. 01/28/2018 patient feeling better today. Strength is improved. No significant diarrhea. Plan is to complete a ten-day course of Dificid for the recent Clostridium difficile colitis that was profound and debilitating. It is possible to start receiving his JOSE inhalation for his chronic Pseudomonas pulmonary infection to his chronic structural lung disease Continue avoid other antimicrobial therapy as possible Patient will go to rehab for rehabilitation. Current Visit: Yes Status: Acute Code(s): I48.91 - UNSPECIFIED ATRIAL FIBRILLATION SNOMED Code(s): 395030634 (2) Pneumonia due to Pseudomonas aeruginosa Current Visit: No Status: Acute Code(s): J15.1 - PNEUMONIA DUE TO PSEUDOMONAS SNOMED Code(s): 80698812 (3) Acute exacerbation of chronic obstructive airways disease Current Visit: Yes Status: Acute Code(s): J44.1 - CHRONIC OBSTRUCTIVE PULMONARY DISEASE W (ACUTE) EXACERBATION SNOMED Code(s): 436256216
[2018-01-28] MEDS: CITALOPRAM HYDROBROMIDE 20 MG TAB PO SCH (22:38)
[2018-01-28] MEDS: ALPRAZolam 1 MG TAB PO PRN (22:38)
[2018-01-28] MEDS: TAMSULOSIN 0.4 MG CAP.ER.24H PO SCH (22:39)
[2018-01-29] MEDS: methylPREDNISolone SOD SUCCI 40 MG/ML 1 ML VIAL IV SCH ×2 (00:35→08:29)
[2018-01-29] MEDS: IPRATROPIUM-ALBUTEROL 3 ML NEB INHALATION SCH ×4 (03:29→15:08)
[2018-01-29] MEDS: METOPROLOL TARTRATE 12.5 MG TAB PO SCH (08:28)
[2018-01-29] MEDS: FAMOTIDINE 20 MG TAB PO SCH (08:28)
[2018-01-29] MEDS: TOBRAMYCIN 300MG/7.5ML SYRG *FOR INHALATION INHALATION SCH (08:28)
[2018-01-29] MEDS: MULTIVITAMINS, THERA 1 EACH TAB PO SCH (08:28)
[2018-01-29] MEDS: VERAPAMIL 40 MG TAB PO SCH (08:28)
[2018-01-29] MEDS: busPIRone HCl 5 MG TAB PO SCH (08:28)
[2018-01-29] MEDS: FUROSEMIDE 40 MG TAB PO SCH (08:28)
[2018-01-29] MEDS: APIXABAN 2.5 MG TABLET PO SCH (08:28)
[2018-01-29] MEDS: SYMBICORT 160-4.5 MCG INHALER INHALATION SCH (08:29)
[2018-01-29] MEDS: guaiFENesin-DM 600/30MG 1 EACH TAB.ER.12H PO SCH (08:29)
[2018-01-29] MEDS: FIDAXOMICIN 200 MG TABLET PO SCH (08:29)
[2018-01-29] MEDS: THEOPHYLLINE 24 HOUR 300 MG CAP.ER.24H PO SCH (08:29)
[2018-01-29 08:37] VITALS: RESP 16; TEMP 97.4
--- NOTE | 2018-01-29 11:38 | P.DS ---
Providers Date of admission: 01/26/18 13:42 Attending physician: Kimberly Cortez Consults: 01/26/18 13:38 Consult Physician Routine Consulting Provider: Charleen Dennison Consult Reason/Comments: COPD exacerbation Do you want consulting provider notified?: Yes Consult Physician Routine Consulting Provider: Anthony Lozano Consult Reason/Comments: Rapid atrial fibrillation Do you want consulting provider notified?: Yes 01/26/18 17:36 Consult Physician Routine Consulting Provider: Taras Marshall Consult Reason/Comments: ?pna , h/o C diff Do you want consulting provider notified?: Yes Primary care physician: [facility] Course: Diagnoses: Acute COPD exacerbation, resolving. A. fib with RVR. Controlled rate and started on anticoagulation Recent history of C. diff, on antibiotic for 10 more days History of hyperlipidemia History of prostate cancer Hospital course: 82 years old male with past medical history of COPD, C. diff, hyperlipidemia, pneumonia, prostate cancer treated with radiation therapy, anemia, who presents because of dyspnea. And worsening cough with page phlegm. Patient was found to have probably acute COPD exacerbation, pulmonary has evaluated the patient and he was treated with a breathing treatment, steroids and oxygen. Patient showed some interval improvement. Also he was found to have A. fib with RVR. Engine Installer evaluated the patient and he was started on Eliquis 2.5 mg twice a day and small doses of verapamil and metoprolol. His heart rate is controlled now. Patient has known to have C. diff since last admission and his been taken deficit. Patient diarrhea is improving and currently he has almost performed bowel movement. On infectious disease recommended to continue deficit antibiotic for 10 more days. Patient returned to his baseline and he was lying in bed comfortable not in distress. He wanted to go to rehab today. He denies chest pain. No worsening dyspnea. His abdomen looks soft benign and with no abdominal pain. No change in his urine habits. He is afebrile. Labs reviewed the looks stable Patient was cleared for discharge by pulmonary, cardiology and infectious disease. Problems and management plan was discussed with the patient in details and he verbalized understanding and acceptance. Patient was found stable and can be discharged home however he needs follow-up as an outpatient physical exam Gen.: Patient alert awake and oriented X 3, NOT IN DISTRESS CVS: s1-s2, RRR, no murmur CHEST:bilateral CTA, no wheezing or crepitation Abdomen: Soft, no tenderness, no distention, positive bowel sounds Extremities: No leg edema or induration Time spent more than 35 minutes Patient Condition at Discharge: Serious Plan - Discharge Summary Discharge Rx Participant: No New Discharge Prescriptions: New Apixaban [Eliquis] 2.5 mg PO BID tablet Famotidine [Pepcid] 20 mg PO Q12HR tab Metoprolol Tartrate [Lopressor] 12.5 mg PO DAILY tab predniSONE 10 mg PO DIRECTED #20 tab Tobramycin INH 300 mg INHALATION RT-BID syringe Verapamil [Isoptin] 40 mg PO TID tab Continue Tamsulosin [Flomax] 0.4 mg PO HS Fluticasone/Salmeterol [Advair 500-50 Diskus] 1 puff INHALATION RT-BID busPIRone HCl [Buspar] 5 mg PO BID Albuterol Nebulized [Ventolin Nebulized] 2.5 mg INHALATION RT-TID Citalopram Hydrobromide [CeleXA] 40 mg PO HS Furosemide [Lasix] 40 mg PO DAILY Multivit-Min/FA/Lycopen/Lutein [Centrum Silver Tablet] 1 tab PO DAILY Theophylline 12 Hour [Yevgeiny-Dur] 300 mg PO BID ALPRAZolam [Xanax] 1 mg PO HS PRN PRN Reason: Anxiety diphenhydrAMINE [Benadryl] 25 mg PO HS PRN PRN Reason: Allergy Symptoms Tiotropium Concord [Spiriva] 1 cap INHALATION RT-DAILY predniSONE 10 mg PO DAILY Fidaxomicin [Dificid] 200 mg PO BID 10 Days #20 tablet guaiFENesin-DM 600/30MG [Mucinex Dm] 1 tab PO BID 7 Days #14 Discharge Medication List Fluticasone/Salmeterol [Advair 500-50 Diskus] 1 puff INHALATION RT-BID 06/02/14 [History] Tamsulosin [Flomax] 0.4 mg PO HS 06/02/14 [History] busPIRone HCl [Buspar] 5 mg PO BID 02/24/17 [History] Albuterol Nebulized [Ventolin Nebulized] 2.5 mg INHALATION RT-TID 04/01/17 [ History] Citalopram Hydrobromide [CeleXA] 40 mg PO HS 04/24/17 [History] Furosemide [Lasix] 40 mg PO DAILY 04/24/17 [History] Multivit-Min/FA/Lycopen/Lutein [Centrum Silver Tablet] 1 tab PO DAILY 04/24/17 [ History] ALPRAZolam [Xanax] 1 mg PO HS PRN 01/04/18 [History] Theophylline 12 Hour [Yevgeniy-Dur] 300 mg PO BID 01/04/18 [History] Tiotropium Concord [Spiriva] 1 cap INHALATION RT-DAILY 01/04/18 [History] diphenhydrAMINE [Benadryl] 25 mg PO HS PRN 01/04/18 [History] predniSONE 10 mg PO DAILY 01/26/18 [History] Apixaban [Eliquis] 2.5 mg PO BID tablet 01/29/18 [Rx] Famotidine [Pepcid] 20 mg PO Q12HR tab 01/29/18 [Rx] Fidaxomicin [Dificid] 200 mg PO BID 10 Days #20 tablet 01/29/18 [Rx] Metoprolol Tartrate [Lopressor] 12.5 mg PO DAILY tab 01/29/18 [Rx] Tobramycin INH 300 mg INHALATION RT-BID syringe 01/29/18 [Rx] Verapamil [Isoptin] 40 mg PO TID tab 01/29/18 [Rx] guaiFENesin-DM 600/30MG [Mucinex Dm] 1 tab PO BID 7 Days #14 01/29/18 [Rx] predniSONE 10 mg PO DIRECTED #20 tab 01/29/18 [Rx] Follow up Appointment(s)/Referral(s): Lily Carolina MD [Primary Care Provider] - 3 Days (Please follow up when discharged from rehab.) Charleen Dennison MD [STAFF PHYSICIAN] - 1 Week Patient Instructions/Handouts: Chronic Lung Disease and Infection Prevention ( DC) Activity/Diet/Wound Care/Special Instructions: ECF Cardiac diet, salt restriction Activity is limited till you see your doctor Keep oxygen saturation more than 92%
[2018-01-29 11:53] VITALS: BP 109/59
--- NOTE | 2018-01-29 12:34 | P.PN ---
Subjective Progress Note Date: 01/29/18 Principal diagnosis: Acute on chronic hypoxemic and hypercapnic respiratory failure secondary to acute exacerbation of COPD, and possible superimposed pseudomonal pneumonia This 82-year-old white male patient of Dr. 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 He requires 5 L of oxygen by nasal cannula at home. Presented to the emergency department on 01/26/2018, for evaluation of weakness, increasing shortness of breath, and acute on chronic hypoxemic respiratory failure, patient only had saturations in the 80s on his home oxygen. He was burned to the hospital by ambulance, did require BiPAP support and nebulized treatments. Patient was recently hospitalized for C. diff colitis, and COPD exacerbation. Following that hospitalization, patient was again hospitalized for dyspnea, generalized weakness. Patient has had multiple hospitalizations, is quite debilitated at his baseline, patient was recommended hospice care, to which the patient agreed. Patient went home with [facility], however after he went home he found that some of his pulmonary medications including the nebulized tobramycin would not be continued under hospice care. Patient then change his mind about hospice, he felt that he was misled into signing into hospice. He wants to continue with treatment. He is maintained complaints she states is generalized weakness, poor exercise tolerance, shortness of breath. Patient denied any fever or chills. He has had an increased cough with aguila- colored phlegm production. He has lost around 10-15 pounds in the last several weeks due to decreased appetite. On admission to the emergency department she was found to be in A. fib RVR, new onset. Patient did have some pressure-like sensation in the midsternal area for 2 hours at home which resolved now. He was started on IV Cardizem at 5 mg per hour for rate control, and currently she is in sinus rhythm at a rate of 105 BPM. Chest x-ray showed chronic interstitial changes, however superimposed bilateral lower lobe pneumonias not be totally excluded. His initial blood work showed WBC of 8.3, hemoglobin of 10.8, sodium of 135, potassium is 3.0, chloride is 90, CO2 is 38, BUN was 18 and creatinine 0.71, troponin was 0.048, proBNP was 607, urinalysis was negative. Patient was started on nebulized bronchodilators, empiric antibiotics including doxycycline, he is on deficit for history of C. diff colitis, IV Solu-Medrol, and Symbicort. His sputum culture from 01/06/2018 was positive for pseudomonas aeruginosa with sensitivity to meropenem and Zosyn. On 01/28/2018 patient seen in follow-up on selective care unit. He is awake and alert, in no acute distress, becomes very dyspneic with any exertion, and his severe generalized weakness. Currently on 6 L per nasal cannula his pulse ox is 90%, afebrile, no chills. Today's labs been reviewed, showed white count of 5.8, hemoglobin is 7.8, sodium is 136, chloride is 96 BUN is 30 creatinine 0.4. Preliminary sputum Gram stain showed many gram-negative bacilli, few gram- positive cocci, cultures pending. Blood culture showed no growth. Patient was seen by ID service in consultation, her condition was noted. She needs inhaled tobramycin has been resumed. Clinically patient is close to his baseline, and arrangements are in progress for rehab placement. On 01/29/2018 patient seen in follow-up on selective care unit. In no acute distress, lung sounds are positive for some scattered wheezes, no worsening dyspnea. No fever no chills vital signs are stable, currently on 6 L per nasal cannula. Luminary sputum Gram stain showed many gram-negative bacilli, few gram -positive cocci, final cultures in progress. Blood culture has been negative at the 48 hour estefany. Afebrile. Patient is on inhaled tobramycin. He states last night he had 2 episodes of loose stools. His labs were reviewed. Patient is pretty near his baseline as far as his dyspnea, no acute events overnight. Discharge planning is in progress for placement to [facility] or the [facility]. Objective - Vital Signs Vital signs: Vital Signs Temp 97.4 F L 01/29/18 08:00 Pulse 92 01/29/18 12:18 Resp 16 01/29/18 11:53 BP 109/59 01/29/18 11:53 Pulse Ox 93 L 01/29/18 11:53 Intake & Output 01/28/18 01/29/18 01/29/18 18:59 06:59 18:59 Intake Total 1252 240 Output Total 150 1200 Balance 1102 -1200 240 Weight 74.5 kg 74.5 kg Intake: Intake, IV Titration 100 Amount Doxycycline 100 mg In 100 Sodium Chloride 0.9% 100 ml @ 100 mls/hr IVPB Q12HR [facility] Rx#:[id number] Oral 1152 240 Output: Urine 150 1200 Other: Voiding Method Urinal Urinal # Voids 0 - Exam GENERAL EXAM: Alert, pleasant 82-year-old white male, thin, mildly short of breath with conversation, on 6 L per nasal cannula, comfortable in no apparent distress. HEAD: Normocephalic/atraumatic. EYES: Normal reaction of pupils, equal size. Conjunctiva pink, sclera white. NOSE: Clear with pink turbinates. THROAT: No erythema or exudates. NECK: No masses, no JVD, no thyroid enlargement, no adenopathy. CHEST: No chest wall deformity. Symmetrical expansion. LUNGS: Equal air entry with with a few scattered wheezes CVS: Regular rate and rhythm, normal S1 and S2, no gallops, no murmurs, no rubs ABDOMEN: Soft, nontender. No hepatosplenomegaly, normal bowel sounds, no guarding or rigidity. EXTREMITIES: No clubbing, 2+ bilateral lower extremity edema no cyanosis, 2+ pulses and upper and lower extremities. MUSCULOSKELETAL: Muscle strength and tone normal. SPINE: No scoliosis or deformity SKIN: No rashes CENTRAL NERVOUS SYSTEM: Alert and oriented -3. No focal deficits, tone is normal in all 4 extremities. PSYCHIATRIC: Alert and oriented -3. Appropriate affect. Intact judgment and insight. - Labs CBC & Chem 7: 01/28/18 06:30 01/28/18 06:30 Labs: Microbiology - Last 24 Hours (Table) 01/26/18 10:07 Blood Culture - Preliminary Blood No Growth after 48 hours Assessment and Plan Plan: Assessment: #1. Acute on chronic hypoxemic and hypercapnic respiratory failure secondary to acute exacerbation of COPD, chest x-ray has been reviewed, and superimposed pneumonia cannot be completely ruled out on the background of chronic interstitial changes. #2. Advanced prednisone and oxygen dependent COPD with history of recurrent pulmonary infections with pseudomonas aeruginosa, patient is maintained on nebulized tobramycin. Previous FEV1 of 45% of predicted #3. Severe weakness related to overall general medical debility and 2 recent hospitalizations #4. History of hospitalization for C. diff colitis currently on deficit #5. New onset A. fib RVR, with a sinus rhythm #6. Hypokalemia #7. Poor appetite, dehydration #8. Weight loss of 10-12 pounds in the last few weeks #9. Mildly elevated troponin #10. History of prostate cancer status post radiation therapy #11. Anemia #12. Chronic anxiety/depression #13. Previous history of MRSA lung infection Plan: No acute events overnight, vital signs remain stable, no worsening dyspnea. Continues on inhaled tobramycin, final sputum culture is still in progress. No fever or chills. Discharge planning is in progress for [facility] or the [facility]. From pulmonary perspective patient is stable for discharge to rehab today. I performed a history & physical examination of the patient and discussed their management with my nurse practitioner, Loulou Cross. I reviewed the nurse practitioner's note and agree with the documented findings and plan of care. Lung sounds are scattered wheezes. The findings and the impression was discussed with the patient. I attest to the documentation by the nurse practitioner. Time with Patient: Less than 30
[2018-01-29 15:19] VITALS: PULSE 100
--- NOTE | 2018-01-29 16:23 | CDI ---
Documentation Clarification Form Date: 01/29/2018 3:56:58 PM From: Janneth Oneil RN, CCDS Admit Date: 01/26/2018 1:42:00 PM Patient Name: Dev Wesley Visit Number: [id number] Discharge Date: ATTENTION: The Clinical Documentation Specialists (CDI) and [facility] Coding Staff appreciate your assistance in clarifying documentation. Please respond to the clarification below the line at the bottom and electronically sign. The CDI & [facility] Coding staff will review the response and follow-up if needed. Please note: Queries are made part of the Legal Health Record. If you have any questions, please contact the author of this message via ITS. Dr. Marshal Madrigal Atrial Fibrillation is documented in the ED evaluation your consult and ongoing progress notes. History/Risk Factors: COPD, Hyperlipidemia, Pneumonia, Prostate cancer Clinical Indicators: Complaints of shortness of breath. He is on home oxygen and had 80 % saturation at home. In ED he had diffuse wheezing, accessory muscle use, decreased breath sounds and EKG was showing atrial fibrillation with RVR . EKG/telemetry: Atrial Fibrillation rate of 144 bpm Vital signs: 146/71 151 24 97.9 ECHO: Left ventricle normal size with mild cencentric LVH, preserved contractility with a moderate pulmonary hypertension, EF between 55-60 % Treatment: Telematry monitor Monitor Labs and vitals Cardizem IV Eliquis PO Verapamil Po, Lopressor PO In your professional opinion, can you please clarify the type of Atrial Fibrillation, if known? Paroxysmal Persistent Other, please specify Unable to determine (Last Revision: May 2017) Unable to determine MTDD
== END 2018-01-29 16:15 | DRG 190 ==
LOC: EC 09:57 → 3SCARD 13:42
PROVIDERS: ADMIT Internal Medicine; ATTEND Internal Medicine
PROC: 5A09457 Assistance with Respiratory Ventilation, 24-96 Consecutive Hours, Continuous Positive Airway Pressure (ICD-10-PCS; principal; 2018-01-26)
DX: J44.1 Chronic obstructive pulmonary disease with (acute) exacerbation (principal); J96.21 Acute and chronic respiratory failure with hypoxia; J96.22 Acute and chronic respiratory failure with hypercapnia; J15.1 Pneumonia due to Pseudomonas; E87.1 Hypo-osmolality and hyponatremia; I47.1 Supraventricular tachycardia; A04.71 Enterocolitis due to Clostridium difficile, recurrent; J44.0 Chronic obstructive pulmonary disease with (acute) lower respiratory infection; I27.20 Pulmonary hypertension, unspecified; I48.91 Unspecified atrial fibrillation; E86.0 Dehydration; D64.9 Anemia, unspecified; N40.0 Benign prostatic hyperplasia without lower urinary tract symptoms; I10 Essential (primary) hypertension; I25.10 Atherosclerotic heart disease of native coronary artery without angina pectoris; E87.6 Hypokalemia; E78.5 Hyperlipidemia, unspecified; F32.9 Major depressive disorder, single episode, unspecified; F41.9 Anxiety disorder, unspecified; R77.8 Other specified abnormalities of plasma proteins; M50.30 Other cervical disc degeneration, unspecified cervical region; Z99.81 Dependence on supplemental oxygen; Z79.51 Long term (current) use of inhaled steroids; Z79.52 Long term (current) use of systemic steroids; Z79.899 Other long term (current) drug therapy; Z87.891 Personal history of nicotine dependence; Z85.46 Personal history of malignant neoplasm of prostate; Z92.3 Personal history of irradiation; Z85.828 Personal history of other malignant neoplasm of skin; Z90.49 Acquired absence of other specified parts of digestive tract; Z86.14 Personal history of Methicillin resistant Staphylococcus aureus infection; Z80.8 Family history of malignant neoplasm of other organs or systems
CPT/HCPCS: 36415; 71045; 80048; 80053; 82550; 82553; 83735; 83880; 84484; 85025; 85610; 85730; 87040; 87070; 87077; 87186; 87205; 93005; 93306; 94640; 94660; 94760; 96365; 96368; 96376; 99291

== ENCOUNTER 2018-02-12 22:14 | Inpatient (IN) | payer MEDICARE, OTHER ==
[2018-02-12] MEDS ORDERED: SODIUM CHLORIDE 0.9% 500 ML IV STA (22:46)
[2018-02-13] MEDS ORDERED: NALOXONE 0.4 MG/ML 1 ML VIAL IV PRN (00:36)
--- NOTE | 2018-02-13 00:36 | ED ---
General Adult HPI - General Chief complaint: Recheck/Abnormal Lab/Rx Stated complaint: Abnormal Labs Source: EMS Mode of arrival: EMS Limitations: no limitations - History of Present Illness Initial comments: Dictation was produced using [employer] dictation software. please excuse any grammatical, word or spelling errors. Chief Complaint: 82-year-old male with multiple comorbidities presents with chief complaint of nausea vomiting and abnormal outpatient lab. History of Present Illness: His 82-year-old male past medical history of cancer, COPD, dyslipidemia, pneumonia presents with abnormal outpatient lab. Patient allegedly had a critical low potassium of 2.6 at [facility] today. These labs were identified on routine lab checks at [facility]. He is transferred to the emergency department for potassium replacement. Patient had metabolic panel drawn today. Rest metabolic panel is accessible through our EMR. Rest of labs shows sodium 133, calm and accident 36. 14. Patient is on Lasix for lower extremity edema. Patient also has complaint of nausea and vomiting. Patient denies any bilious or bloody emesis. Denies any abdominal pain. The ROS documented in this emergency department record has been reviewed and confirmed by me. Those systems with pertinent positive or negative responses have been documented in the HPI. All other systems are other negative and/or noncontributory. - Related Data Home Medications Medication Instructions Recorded Confirmed Tamsulosin [Flomax] 0.4 mg PO HS 06/02/14 02/12/18 busPIRone HCl [Buspar] 5 mg PO BID 02/24/17 02/12/18 Albuterol Nebulized [Ventolin 2.5 mg INHALATION RT-TID@05,13,21 04/01/17 Nebulized] Citalopram Hydrobromide [CeleXA] 40 mg PO HS 04/24/17 02/12/18 Furosemide [Lasix] 40 mg PO DAILY 04/24/17 02/12/18 Multivit-Min/FA/Lycopen/Lutein 1 tab PO DAILY 04/24/17 02/12/18 [Centrum Silver Tablet] Theophylline 12 Hour [Yevgeniy-Dur] 300 mg PO BID 01/04/18 02/12/18 Tiotropium [place] [Spiriva] 1 cap INHALATION RT-DAILY 01/04/18 02/12/18 diphenhydrAMINE [Benadryl] 25 mg PO HS 01/04/18 02/12/18 ALPRAZolam [Xanax] 1 mg PO HS 02/12/18 02/12/18 Famotidine [Pepcid] 20 mg PO BID@0800,199902/12/18 02/12/18 Fluticasone/Vilanterol [Breo 1 puff INHALATION RT-DAILY 02/12/18 02/12/18 Ellipta 200-25 Mcg INH] Mylanta 15 ml PO Q4H PRN 02/12/18 02/12/18 Potassium Chloride ER [K-Dur 20] 20 meq PO BID@0800,199902/12/18 02/12/18 Verapamil [Isoptin] 40 mg PO TID@0500,1300,209902/12/18 02/12/18 Previous Rx's Medication Instructions Recorded Apixaban [Eliquis] 2.5 mg PO BID tablet 01/29/18 Metoprolol Tartrate [Lopressor] 12.5 mg PO DAILY tab 01/29/18 Tobramycin INH 300 mg INHALATION RT-BID syringe 01/29/18 Allergies Allergy/AdvReac Type Severity Reaction Status Date / Time No Known Allergies Allergy Verified 02/12/18 22:23 Review of Systems ROS Statement: Those systems with pertinent positive or pertinent negative responses have been documented in the HPI. ROS Other: All systems not noted in ROS Statement are negative. Past Medical History Past Medical History: Cancer, COPD, Hyperlipidemia, Pneumonia, Prostate Disorder Additional Past Medical History / Comment(s): bilateral pneumonia. COPD, pneumonia with sepsis, 2007 prostate cancer treated by radiation therapy, skin cancer with removal, normocytic anemia, cervical DDD. chronic irregular pupil size. History of Any Multi-Drug Resistant Organisms: C-DIFF, Other MDRO Date of last positivie culture/infection: 01/27/18/ CDIFF 2017 MDRO Source:: SPUTUM Past Surgical History: Appendectomy Additional Past Surgical History / Comment(s): pilonidal cyst, 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, SEED IMPLANTS FOR PROSTATE CA 2007, nasal surgery, hemorrhoidectomy, colonoscopy, circumcism, skin cancer removed from R forearm. cataract removed from R eye. Past Anesthesia/Blood Transfusion Reactions: No Reported Reaction Past Psychological History: Anxiety, Depression Smoking Status: Former smoker Past Alcohol Use History: None Reported Past Drug Use History: None Reported - Past Family History Mother Family Medical History: No Reported History Father Family Medical History: Cancer Additional Family Medical History / Comment(s): spine CA which spread to bone CA General Exam - General Exam Comments Initial Comments: PHYSICAL EXAM: General Impression: Alert and oriented x3, not in acute distress HEENT: Normocephalic atraumatic, extra-ocular movements intact, pupils equal and reactive to light bilaterally, dry mucous membranes Cardiovascular: Heart regular rate and rhythm, S1&S2 audible, no murmurs, rubs or gallops Chest: Lungs clear to auscultation bilaterally, no rhonchi, no wheeze, no rales Abdomen: Bowel sounds present, abdomen soft, non-tender, non-distended, no organomegaly Musculoskeletal: Pulses present and equal in all extremities, no peripheral edema Motor: Power 5/5 bilaterally, no focal deficits noted Neurological: CN II-XII grossly intact, no focal motor or sensory deficits noted Skin: Intact with no visualized rashes Psych: Normal affect and mood Limitations: no limitations Course Vital Signs 02/12/18 02/12/18 02/12/18 22:19 22:35 22:46 Temperature 98.1 F Pulse Rate 110 H Respiratory 20 Rate Blood Pressure 120/65 O2 Sat by Pulse 90 L 97 97 Oximetry 02/12/18 02/12/18 22:56 23:27 Temperature 99.0 F Pulse Rate 113 H Respiratory 24 Rate Blood Pressure 114/70 O2 Sat by Pulse 96 97 Oximetry Medical Decision Making - Medical Decision Making ED course: 82-year-old male presents with abnormal outpatient lab. His potassium measured on his metabolic panel performed at [facility] showed level of 2.6. Patient also has an symptoms of nausea vomiting. He is on Lasix. As upon arrival shows heart rate of 110. Patient given 2 pills of potassium prior to arrival. Repeat potassium was checked found to be 3.2. Patient could not tolerate by mouth. Given intravenous fluids. We'll plan to have patient admitted for nausea vomiting. EKGs benign. EKG shows prolonged QT. It's likely caused by electrolyte derangement. EKG Interpretation: A 12 lead EKG was obtained. It was interpreted by myself and attending physician. There is a P wave before every QRS complex. Rate is 116. Rhythm is sinus tachycardia, ID interval 154, care surgeon 92, QTc 519.. QT is not prolonged. No ST segment depression or elevation. This EKG was compared to a previous EKG that was obtained on [id number] and showed no significant change. Overall, this EKG is unremarkable - Lab Data Result diagrams: 02/12/18 22:54 Lab Results 02/12/18 Range/Units 22:54 Potassium 3.2 L (3.5-5.1) mmol/L Disposition Clinical Impression: Hypokalemia, Dehydration Disposition: ADMITTED IP TO THIS HOSP Condition: Fair Referrals: Lily Carolina MD [Primary Care Provider] - 1-2 days Decision Time: 00:36
[2018-02-13] MEDS ORDERED: METOCLOPRAMIDE 5 MG/ML 2 ML VIAL IVP STA (00:39)
[2018-02-13] MEDS: SODIUM CHLORIDE 0.9% 1,000 ML IV SCH ×2 (01:59→13:15)
[2018-02-13] MEDS: METOCLOPRAMIDE 5 MG/ML 2 ML VIAL IVP SCH ×4 (02:00→23:38)
[2018-02-13] MEDS: VERAPAMIL 40 MG TAB PO SCH ×3 (07:48→22:03)
[2018-02-13] MEDS: METOPROLOL TARTRATE 12.5 MG TAB PO SCH (08:24)
[2018-02-13] MEDS: APIXABAN 2.5 MG TABLET PO SCH ×2 (08:25→21:32)
[2018-02-13] MEDS: POTASSIUM CHLORIDE ER 20 MEQ TAB.ER PO SCH ×2 (08:25→21:32)
[2018-02-13] MEDS: TOBRAMYCIN 300MG/7.5ML SYRG *FOR INHALATION INHALATION SCH (18:56)
[2018-02-13] MEDS: CITALOPRAM HYDROBROMIDE 20 MG TAB PO SCH (21:32)
[2018-02-13] MEDS: FAMOTIDINE 20 MG TAB PO SCH (21:32)
[2018-02-13] MEDS: ALPRAZolam 1 MG TAB PO SCH (21:32)
[2018-02-13] MEDS: TAMSULOSIN 0.4 MG CAP.ER.24H PO SCH (21:32)
[2018-02-13] MEDS: THEOPHYLLINE 24 HOUR 300 MG CAP.ER.24H PO SCH (22:02)
[2018-02-13] MEDS: busPIRone HCl 5 MG TAB PO SCH (22:02)
--- NOTE | 2018-02-13 22:09 | P.HPIM ---
History of Present Illness H&P Date: 02/13/18 Chief Complaint: Nausea and vomiting Patient is 80-year-old male with a known history of COPD, history of prostate cancer status post radiation,hyperlipidemia and history of Pseudomonas pneumonia diagnosed some time in April 2017 and is currently maintained on inhaled tobramycin every other month as per ID recommendations came to ER with complaints of nausea and vomiting for the past 2-3 days. Patient was having nausea and vomiting and outpatient lab tests were done which showed potassium level of 2.6 at [facility]. Patient was recently treated for C. diff colitis and was transferred to rehabilitation. Patient was admitted to hospital for hypokalemia. Patient does take Lasix for lower extremities edema. Currently patient denied any complaints of abdominal pain. No fever no chills. Patient does have watery emesis. No chest pain no worsening shortness of breath. No cough or sputum production. EKG showed sinus tachycardia Review of Systems Constitutional: Patient denies any fever or chills . Patient does have generalized weakness. No weight loss. Abdomen: Patient does have nausea and vomiting. No diarrhea. No abdominal pain. Cardiovascular: Patient denies any chest pain or short of breath no palpitations. Respiratory: patient denied any cough is from production. No shortness of breath Neurologic: Patient denied any numbness or tingling headache. Musculoskeletal: Patient denies any complaints of joint swelling or deformity. Skin: Negative Psychiatric: Negative Endocrine: No heat or cold intolerance. No recent weight gain. Genitourinary: No dysuria or hematuria. All other 14 point ROS negative except the above Past Medical History Past Medical History: Cancer, COPD, Hyperlipidemia, Pneumonia, Prostate Disorder Additional Past Medical History / Comment(s): bilateral pneumonia. COPD, pneumonia with sepsis, 2007 prostate cancer treated by radiation therapy, skin cancer with removal, normocytic anemia, cervical DDD. chronic irregular pupil size. History of Any Multi-Drug Resistant Organisms: C-DIFF, Other MDRO Date of last positivie culture/infection: 01/27/18/ CDIFF 2017 MDRO Source:: SPUTUM Past Surgical History: Appendectomy Additional Past Surgical History / Comment(s): pilonidal cyst, 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, SEED IMPLANTS FOR PROSTATE CA 2007, nasal surgery, hemorrhoidectomy, colonoscopy, circumcism, skin cancer removed from R forearm. cataract removed from R eye. Past Anesthesia/Blood Transfusion Reactions: No Reported Reaction Past Psychological History: Anxiety, Depression Smoking Status: Former smoker Past Alcohol Use History: None Reported Past Drug Use History: None Reported - Past Family History Mother Family Medical History: No Reported History Father Family Medical History: Cancer Additional Family Medical History / Comment(s): spine CA which spread to bone CA Medications and Allergies Home Medications Medication Instructions Recorded Confirmed Type Tamsulosin [Flomax] 0.4 mg PO HS 06/02/14 02/12/18 History busPIRone HCl [Buspar] 5 mg PO BID 02/24/17 02/12/18 History Albuterol Nebulized [Ventolin 2.5 mg INHALATION RT-TID@05,,04/01/17 History Nebulized] Citalopram Hydrobromide [CeleXA] 40 mg PO HS 04/24/17 02/12/18 History Furosemide [Lasix] 40 mg PO DAILY 04/24/17 02/12/18 History Multivit-Min/FA/Lycopen/Lutein 1 tab PO DAILY 04/24/17 02/12/18 History [Centrum Silver Tablet] Theophylline 12 Hour [Yevgeniy-Dur] 300 mg PO BID 01/04/18 02/12/18 History Tiotropium [place] [Spiriva] 1 cap INHALATION RT-DAILY 01/04/18 02/12/18 History diphenhydrAMINE [Benadryl] 25 mg PO HS 01/04/18 02/12/18 History Apixaban [Eliquis] 2.5 mg PO BID tablet 01/29/18 02/12/18 Rx Metoprolol Tartrate [Lopressor] 12.5 mg PO DAILY tab 01/29/18 02/12/18 Rx Tobramycin INH 300 mg INHALATION RT-BID syringe 01/29/18 02/12/18 Rx ALPRAZolam [Xanax] 1 mg PO HS 02/12/18 02/12/18 History Famotidine [Pepcid] 20 mg PO BID@0800,2000 02/12/18 02/12/18 History Fluticasone/Vilanterol [Breo 1 puff INHALATION RT-DAILY 02/12/18 02/12/18 History Ellipta 200-25 Mcg INH] Mylanta 15 ml PO Q4H PRN 02/12/18 02/12/18 History Potassium Chloride ER [K-Dur 20] 20 meq PO BID@0800,2000 02/12/18 02/12/18 History Verapamil [Isoptin] 40 mg PO TID@0500,1300,2100 02/12/18 02/12/18 History Allergies Allergy/AdvReac Type Severity Reaction Status Date / Time No Known Allergies Allergy Verified 02/12/18 22:23 Physical Exam Vitals: Vital Signs Temp Pulse Resp BP Pulse Ox 02/13/18 13:00 89 18 124/65 95 02/13/18 07:47 95 18 118/84 97 02/13/18 06:52 98.3 F 100 20 122/86 97 02/13/18 04:23 98.5 F 98 18 111/71 99 02/13/18 03:00 108 H 22 106/74 97 02/13/18 01:30 111 H 22 122/86 97 02/13/18 00:30 97.9 F 112 H 19 112/70 95 02/12/18 23:27 99.0 F 113 H 24 114/70 97 02/12/18 22:56 96 02/12/18 22:46 97 02/12/18 22:35 97 02/12/18 22:19 98.1 F 110 H 20 120/65 90 L Intake and Output 02/12/18 02/13/18 02/13/18 22:59 06:59 14:59 Other: Weight 65.771 kg PHYSICAL EXAMINATION: Patient is lying in the bed comfortably, no acute distress, awake alert and oriented.. HEENT: Normocephalic. Neck is supple. Pupils reactive. Nostrils clear. Oral cavity is moist. Ears reveal no drainage. Neck reveals no JVD, carotid bruits, or thyromegaly. CHEST EXAMINATION: Trachea is central. Symmetrical expansion. Bibasilar diminished air entry. Lung pichardo clear to auscultation and percussion. CARDIAC: Normal S1, S2 with no gallops. No murmurs ABDOMEN: Soft. Bowel sounds normal. No organomegaly. No abdominal bruits. Extremities: reveal no edema. No clubbing or cyanosis Neurologically awake, alert, oriented x3 with well-coordinated movements. No focal deficits noted Skin: No rash or skin lesions. Psychiatric: Coperative. Nonsuicidal Musculoskeletal: No joint swelling or deformity. Normal range of motion. Results CBC & Chem 7: 02/13/18 14:34 Labs: Abnormal Lab Results - Last 24 Hours (Table) 02/12/18 Range/Units 22:54 Potassium 3.2 L (3.5-5.1) mmol/L Thrombosis Risk Factor Assmnt - DVT/VTE Prophylaxis DVT/VTE Prophylaxis: Pharmacologic Prophylaxis ordered Assessment and Plan Assessment: Intractable nausea and vomiting.. No diarrhea. Severe hypokalemia Recent history of C. diff colitis Severe COPD and chronic hypoxic respiratory failure on nausea cannula oxygen. history of Pseudomonas pneumonia and failed antibiotic therapy. Currently on inhaled tobramycin every other month as per ID Pulmonary fibrosis History of prostate cancer with radiation in 2007 and seed implants History of MRSA History of skin cancer remote from right forearm Hyperlipidemia Anxiety/depression Previous history of smoking Paroxysmal atrial fibrillation on anticoagulation Apixaban DVT prophylaxis Plan: Patient was given fluid bolus in the ER. Continue with potassium supplements and repeat potassium level. Continue the home medications and hold diuresis. Continue to monitor closely and continue the home medications as well. Further recommendations based on the clinical course. Prognosis is guarded with multiple medical problems and comorbid conditions. Time with Patient: Greater than 30
[2018-02-14] MEDS: SODIUM CHLORIDE 0.9% 1,000 ML IV SCH ×2 (01:56→16:04)
[2018-02-14] MEDS: VERAPAMIL 40 MG TAB PO SCH ×3 (04:58→21:52)
[2018-02-14] MEDS: SYMBICORT 160-4.5 MCG INHALER INHALATION SCH ×2 (08:03→20:30)
[2018-02-14 08:48] LABS: Anion Gap 4 mmol/L; Blood Urea Nitrogen 19 mg/dL (9-20); Calcium 8.2 mg/dL (8.4-10.2); Carbon Dioxide 38 mmol/L (22-30); Chloride 93 mmol/L (98-107); Glucose 92 mg/dL (74-99); Potassium 3.1 mmol/L (3.5-5.1); Sodium 135 mmol/L (137-145)
[2018-02-14] MEDS: FAMOTIDINE 20 MG TAB PO SCH ×2 (09:02→21:55)
[2018-02-14] MEDS: METOPROLOL TARTRATE 12.5 MG TAB PO SCH (09:02)
[2018-02-14] MEDS: APIXABAN 2.5 MG TABLET PO SCH ×2 (09:02→21:52)
[2018-02-14] MEDS: MULTIVITAMINS, THERA 1 EACH TAB PO SCH (09:02)
[2018-02-14] MEDS: POTASSIUM CHLORIDE ER 20 MEQ TAB.ER PO SCH ×4 (09:02→21:54)
[2018-02-14] MEDS: METOCLOPRAMIDE 5 MG/ML 2 ML VIAL IVP SCH ×2 (09:03→17:59)
[2018-02-14] MEDS ORDERED: Potassium Replacement Protocol 1 EACH MISC MISCELLANE PRN (09:06)
[2018-02-14 09:08] LABS: Anisocytosis Slight; Basophils % (A) 0 %; Eosinophils # (A) 0.2 k/uL (0-0.7); Eosinophils % (A) 5 %; HCT 31.2 % (39.0-53.0); Hypochromasia Moderate; Lymphocytes % (A) 21 %; MCH 27.8 pg (25.0-35.0); MCV 89.5 fL (80.0-100.0); Mean Platelet Volume 6.7; Monocytes # (A) 0.2 k/uL (0-1.0); Monocytes % (A) 5 %; Neutrophils # (A) 3.1 k/uL (1.3-7.7); Neutrophils % (A) 67 %; Platelet Count 203 k/uL (150-450); RBC 3.49 m/uL (4.30-5.90); RDW 16.4 % (11.5-15.5); WBC 4.6 k/uL (3.8-10.6)
[2018-02-14 09:11] LABS: HGB 9.7 gm/dL (13.0-17.5)
--- NOTE | 2018-02-14 10:02 | XR ---
EXAMINATION TYPE: XR chest 1V DATE OF EXAM: 02/14/2018 COMPARISON: 01/26/2018 INDICATION: Short of breath TECHNIQUE: Single frontal view of the chest is obtained. FINDINGS: The heart size is normal. The pulmonary vasculature is normal. There is stranding increased lung markings present bilaterally. These were present previously and may be related to pulmonary fibrosis. No suspicious new infiltrate is evident. IMPRESSION: 1. Chronic appearing pulmonary fibrosis.
[2018-02-14] MEDS: busPIRone HCl 5 MG TAB PO SCH ×2 (10:13→21:53)
[2018-02-14] MEDS: TOBRAMYCIN 300MG/7.5ML SYRG *FOR INHALATION INHALATION SCH ×2 (11:45→20:50)
[2018-02-14] MEDS: THEOPHYLLINE 24 HOUR 300 MG CAP.ER.24H PO SCH (21:52)
[2018-02-14] MEDS: ALPRAZolam 1 MG TAB PO SCH (21:54)
[2018-02-14] MEDS: TAMSULOSIN 0.4 MG CAP.ER.24H PO SCH (21:54)
[2018-02-14] MEDS: CITALOPRAM HYDROBROMIDE 20 MG TAB PO SCH (21:55)
[2018-02-15] MEDS: METOCLOPRAMIDE 5 MG/ML 2 ML VIAL IVP SCH ×3 (00:23→16:03)
[2018-02-15] MEDS: VERAPAMIL 40 MG TAB PO SCH ×3 (06:17→22:34)
[2018-02-15] MEDS: SODIUM CHLORIDE 0.9% 1,000 ML IV SCH ×2 (06:19→15:41)
[2018-02-15] MEDS: POTASSIUM CHLORIDE ER 20 MEQ TAB.ER PO SCH ×2 (07:34→19:30)
[2018-02-15] MEDS: FAMOTIDINE 20 MG TAB PO SCH ×2 (07:34→19:31)
[2018-02-15] MEDS: APIXABAN 2.5 MG TABLET PO SCH ×2 (07:34→22:30)
[2018-02-15] MEDS: METOPROLOL TARTRATE 12.5 MG TAB PO SCH (07:34)
[2018-02-15] MEDS: TOBRAMYCIN 300MG/7.5ML SYRG *FOR INHALATION INHALATION SCH ×2 (07:56→20:39)
[2018-02-15] MEDS: SYMBICORT 160-4.5 MCG INHALER INHALATION SCH ×2 (07:56→20:38)
[2018-02-15] MEDS: busPIRone HCl 5 MG TAB PO SCH ×2 (10:40→22:28)
[2018-02-15] MEDS: MULTIVITAMINS, THERA 1 EACH TAB PO SCH (12:19)
[2018-02-15] MEDS: ALPRAZolam 1 MG TAB PO SCH (22:28)
[2018-02-15] MEDS: CITALOPRAM HYDROBROMIDE 20 MG TAB PO SCH (22:29)
[2018-02-15] MEDS: TAMSULOSIN 0.4 MG CAP.ER.24H PO SCH (22:29)
[2018-02-15] MEDS: THEOPHYLLINE 24 HOUR 300 MG CAP.ER.24H PO SCH (22:30)
[2018-02-16] MEDS: METOCLOPRAMIDE 5 MG/ML 2 ML VIAL IVP SCH ×4 (02:32→21:39)
[2018-02-16] MEDS: SODIUM CHLORIDE 0.9% 1,000 ML IV SCH (04:49)
[2018-02-16] MEDS: VERAPAMIL 40 MG TAB PO SCH ×3 (05:45→21:38)
[2018-02-16 08:34] LABS: Anisocytosis Slight; Basophils % (A) 0 %; Eosinophils # (A) 0.2 k/uL (0-0.7); Eosinophils % (A) 2 %; HCT 32.1 % (39.0-53.0); Hypochromasia Moderate; Lymphocytes # (A) 2.7 k/uL (1.0-4.8); Lymphocytes % (A) 42 %; MCHC 31.1 g/dL (31.0-37.0); Mean Platelet Volume 7.4; Monocytes # (A) 0.3 k/uL (0-1.0); Monocytes % (A) 5 %; Neutrophils # (A) 3.1 k/uL (1.3-7.7); Neutrophils % (A) 49 %; Platelet Count 200 k/uL (150-450); RBC 3.57 m/uL (4.30-5.90); RDW 16.3 % (11.5-15.5); WBC 6.4 k/uL (3.8-10.6)
--- NOTE | 2018-02-16 08:43 | XR ---
EXAMINATION TYPE: XR wrist complete LT DATE OF EXAM: 02/16/2018 CLINICAL HISTORY: pain TECHNIQUE: Frontal, lateral and oblique images of the left wrist are obtained. COMPARISON: None. FINDINGS: There is no acute fracture/dislocation evident. The joint spaces appear within normal curiel its. The overlying soft tissue appears unremarkable. IMPRESSION: There is no acute fracture or dislocation seen. ICD 10 NO FRACTURE, INITIAL EVALUATION
--- NOTE | 2018-02-16 08:43 | XR ---
EXAMINATION TYPE: XR elbow complete RT DATE OF EXAM: 02/16/2018 CLINICAL HISTORY: pain TECHNIQUE: Frontal, lateral and oblique images of the right elbow are obtained. COMPARISON: None. FINDINGS: There is no acute fracture/dislocation evident of the elbow. No abnormal fat pad signs ar e seen. The overlying soft tissue appears unremarkable. IMPRESSION: There is no acute fracture or dislocation of the elbow. ICD 10 NO FRACTURE, INITIAL EVALUATION
[2018-02-16] MEDS: TOBRAMYCIN 300MG/7.5ML SYRG *FOR INHALATION INHALATION SCH ×2 (08:47→19:47)
[2018-02-16] MEDS: SYMBICORT 160-4.5 MCG INHALER INHALATION SCH ×2 (08:47→19:47)
[2018-02-16] MEDS: FAMOTIDINE 20 MG TAB PO SCH ×2 (09:25→21:40)
[2018-02-16] MEDS: METOPROLOL TARTRATE 12.5 MG TAB PO SCH (09:25)
[2018-02-16] MEDS: busPIRone HCl 5 MG TAB PO SCH ×2 (09:25→21:38)
[2018-02-16] MEDS: POTASSIUM CHLORIDE ER 20 MEQ TAB.ER PO SCH ×2 (09:25→21:39)
[2018-02-16] MEDS: APIXABAN 2.5 MG TABLET PO SCH ×2 (09:25→21:40)
[2018-02-16 09:46] LABS: Anion Gap 5 mmol/L; Blood Urea Nitrogen 17 mg/dL (9-20); Calcium 8.5 mg/dL (8.4-10.2); Carbon Dioxide 30 mmol/L (22-30); Chloride 101 mmol/L (98-107); Glucose 107 mg/dL (74-99); Potassium 4.7 mmol/L (3.5-5.1); Sodium 136 mmol/L (137-145)
[2018-02-16] MEDS: ACETAMINOPHEN TAB 325 MG TAB PO PRN (12:44)
[2018-02-16] MEDS: MULTIVITAMINS, THERA 1 EACH TAB PO SCH (12:45)
[2018-02-16] MEDS: IPRATROPIUM-ALBUTEROL 3 ML NEB INHALATION PRN (19:47)
[2018-02-16] MEDS: THEOPHYLLINE 24 HOUR 300 MG CAP.ER.24H PO SCH (21:38)
[2018-02-16] MEDS: ALPRAZolam 1 MG TAB PO SCH (21:38)
[2018-02-16] MEDS: TAMSULOSIN 0.4 MG CAP.ER.24H PO SCH (21:40)
[2018-02-16] MEDS: CITALOPRAM HYDROBROMIDE 20 MG TAB PO SCH (21:40)
--- NOTE | 2018-02-16 23:12 | P.PN ---
Subjective Progress Note Date: 02/14/18 Principal diagnosis: Nausea and vomiting Patient is 80-year-old male with a known history of COPD, history of prostate cancer status post radiation,hyperlipidemia and history of Pseudomonas pneumonia diagnosed some time in April 2017 and is currently maintained on inhaled tobramycin every other month as per ID recommendations came to ER with complaints of nausea and vomiting for the past 2-3 days. Patient was having nausea and vomiting and outpatient lab tests were done which showed potassium level of 2.6 at [facility]. Patient was recently treated for C. diff colitis and was transferred to rehabilitation. Patient was admitted to hospital for hypokalemia. Patient does take Lasix for lower extremities edema. Currently patient denied any complaints of abdominal pain. No fever no chills. Patient does have watery emesis. No chest pain no worsening shortness of breath. No cough or sputum production. EKG showed sinus tachycardia 02/14/2018 Patient feels slightly better today. Potassium level improved. Still not able to eat very well. Continued on IV hydration. No nausea or vomiting. No abdominal pain no diarrhea. No fever no chills. Patient has generalized weakness. Current medications reviewed Objective - Vital Signs Vital signs: Vital Signs Temp 96.9 F L 02/14/18 21:00 Pulse 90 02/14/18 21:14 Resp 18 02/14/18 21:14 BP 106/55 02/14/18 21:00 Pulse Ox 100 02/14/18 21:00 Intake & Output 02/14/18 02/14/18 02/15/18 06:59 18:59 06:59 Intake Total 950 Balance 950 Intake: Oral 950 Other: Voiding Method Bedside Commode Urinal Urinal # Voids 1 2 # Bowel Movements 1 - Exam PHYSICAL EXAMINATION: Patient is lying in the bed comfortably, no acute distress, awake alert and oriented.. HEENT: Normocephalic. Neck is supple. Pupils reactive. Nostrils clear. Oral cavity is moist. Ears reveal no drainage. Neck reveals no JVD, carotid bruits, or thyromegaly. CHEST EXAMINATION: Trachea is central. Symmetrical expansion. Bibasilar diminished air entry. Lung pichardo clear to auscultation and percussion. CARDIAC: Normal S1, S2 with no gallops. No murmurs ABDOMEN: Soft. Bowel sounds normal. No organomegaly. No abdominal bruits. Extremities: reveal no edema. No clubbing or cyanosis Neurologically awake, alert, oriented x3 with well-coordinated movements. No focal deficits noted Skin: No rash or skin lesions. Psychiatric: Coperative. Nonsuicidal Musculoskeletal: No joint swelling or deformity. Normal range of motion. - Labs CBC & Chem 7: 02/16/18 07:31 02/16/18 07:31 Labs: Abnormal Lab Results - Last 24 Hours (Table) 02/14/18 02/14/18 Range/Units 08:15 08:15 RBC 3.49 L (4.30-5.90) m/uL Hgb 9.7 L D (13.0-17.5) gm/dL Hct 31.2 L (39.0-53.0) % RDW 16.4 H (11.5-15.5) % Sodium 135 L (137-145) mmol/L Potassium 3.1 L (3.5-5.1) mmol/L Chloride 93 L (98-107) mmol/L Carbon Dioxide 38 H (22-30) mmol/L Calcium 8.2 L (8.4-10.2) mg/dL Assessment and Plan Assessment: Intractable nausea and vomiting.. No diarrhea. Improved now. Severe hypokalemia. Improved Recent history of C. diff colitis Severe COPD and chronic hypoxic respiratory failure on nausea cannula oxygen. history of Pseudomonas pneumonia and failed antibiotic therapy. Currently on inhaled tobramycin every other month as per ID Pulmonary fibrosis History of prostate cancer with radiation in 2007 and seed implants History of MRSA History of skin cancer remote from right forearm Hyperlipidemia Anxiety/depression Previous history of smoking Paroxysmal atrial fibrillation on anticoagulation Apixaban Generalized weakness and medical debility DVT prophylaxis Plan: Patient was given fluid bolus in the ER. Continue with potassium supplements and repeat potassium level. Continue the home medications and hold diuresis. Continue to monitor closely and continue the home medications as well. Further recommendations based on the clinical course. Prognosis is guarded with multiple medical problems and comorbid conditions.
--- NOTE | 2018-02-16 23:13 | P.PN ---
Subjective Progress Note Date: 02/15/18 Principal diagnosis: Nausea and vomiting Patient is 80-year-old male with a known history of COPD, history of prostate cancer status post radiation,hyperlipidemia and history of Pseudomonas pneumonia diagnosed some time in April 2017 and is currently maintained on inhaled tobramycin every other month as per ID recommendations came to ER with complaints of nausea and vomiting for the past 2-3 days. Patient was having nausea and vomiting and outpatient lab tests were done which showed potassium level of 2.6 at [facility]. Patient was recently treated for C. diff colitis and was transferred to rehabilitation. Patient was admitted to hospital for hypokalemia. Patient does take Lasix for lower extremities edema. Currently patient denied any complaints of abdominal pain. No fever no chills. Patient does have watery emesis. No chest pain no worsening shortness of breath. No cough or sputum production. EKG showed sinus tachycardia 02/14/2018 Patient feels slightly better today. Potassium level improved. Still not able to eat very well. Continued on IV hydration. No nausea or vomiting. No abdominal pain no diarrhea. No fever no chills. Patient has generalized weakness. 02/15/2018 Patient feels better today. Increase oral intake. IV fluid rate will be reducible. No nausea or vomiting. No diarrhea. No headache or dizziness. No chest pain or shortness of breath. Current medications reviewed Objective - Vital Signs Vital signs: Vital Signs Temp 97.2 F L 02/15/18 21:00 Pulse 97 02/15/18 21:04 Resp 17 02/15/18 21:00 BP 101/62 02/15/18 21:00 Pulse Ox 98 02/15/18 21:00 Intake & Output 02/15/18 02/15/18 02/16/18 06:59 18:59 06:59 Intake Total 1400 Balance 1400 Weight 65.77 kg 65.77 kg Intake: Oral 1400 Other: Voiding Method Urinal Toilet Urinal # Voids 1 3 - Exam PHYSICAL EXAMINATION: Patient is lying in the bed comfortably, no acute distress, awake alert and oriented.. HEENT: Normocephalic. Neck is supple. Pupils reactive. Nostrils clear. Oral cavity is moist. Ears reveal no drainage. Neck reveals no JVD, carotid bruits, or thyromegaly. CHEST EXAMINATION: Trachea is central. Symmetrical expansion. Lung pichardo clear to auscultation and percussion. CARDIAC: Normal S1, S2 with no gallops. No murmurs ABDOMEN: Soft. Bowel sounds normal. No organomegaly. No abdominal bruits. Extremities: reveal no edema. No clubbing or cyanosis Neurologically awake, alert, oriented x3 with well-coordinated movements. No focal deficits noted Skin: No rash or skin lesions. Psychiatric: Coperative. Nonsuicidal Musculoskeletal: No joint swelling or deformity. Normal range of motion. - Labs CBC & Chem 7: 02/16/18 07:31 02/16/18 07:31 Assessment and Plan Assessment: Intractable nausea and vomiting.. No diarrhea. Improved now. Severe hypokalemia. Improved Recent history of C. diff colitis Severe COPD and chronic hypoxic respiratory failure on nausea cannula oxygen. history of Pseudomonas pneumonia and failed antibiotic therapy. Currently on inhaled tobramycin every other month as per ID Pulmonary fibrosis History of prostate cancer with radiation in 2007 and seed implants History of MRSA History of skin cancer remote from right forearm Hyperlipidemia Anxiety/depression Previous history of smoking Paroxysmal atrial fibrillation on anticoagulation Apixaban Generalized weakness and medical debility DVT prophylaxis Plan: Patient was given fluid bolus in the ER. Gentle hydration. Continue with potassium supplements and repeat potassium level. Continue the home medications and hold diuresis. Continue to monitor closely and continue the home medications as well. Further recommendations based on the clinical course. Prognosis is guarded with multiple medical problems and comorbid conditions.
--- NOTE | 2018-02-16 23:14 | P.PN ---
Subjective Progress Note Date: 02/16/18 Principal diagnosis: Nausea and vomiting Patient is 80-year-old male with a known history of COPD, history of prostate cancer status post radiation,hyperlipidemia and history of Pseudomonas pneumonia diagnosed some time in April 2017 and is currently maintained on inhaled tobramycin every other month as per ID recommendations came to ER with complaints of nausea and vomiting for the past 2-3 days. Patient was having nausea and vomiting and [facility] Patient was recently treated for C. diff colitis and was transferred to rehabilitation. Patient was admitted to hospital for hypokalemia. Patient does take Lasix for lower extremities edema. Currently patient denied any complaints of abdominal pain. No fever no chills. Patient does have watery emesis. No chest pain no worsening shortness of breath. No cough or sputum production. EKG showed sinus tachycardia 02/14/2018 Patient feels slightly better today. Potassium level improved. Still not able to eat very well. Continued on IV hydration. No nausea or vomiting. No abdominal pain no diarrhea. No fever no chills. Patient has generalized weakness. 02/15/2018 Patient feels better today. Increase oral intake. IV fluid rate will be reducible. No nausea or vomiting. No diarrhea. No headache or dizziness. No chest pain or shortness of breath. 02/16/2018 Patient is tolerating oral diet. Otherwise patient did have a fall in the bathroom today. Patient says that his sleep and to the floor. Patient does have laceration on the forearm. Currently denied any pain. No complaints of chest pain or shortness of breath. No headache or dizziness or lightheadedness. Patient is agreeable to go to [facility] for 24-hour care. Current medications reviewed Objective - Vital Signs Vital signs: Vital Signs Temp 97.5 F L 02/16/18 21:00 Pulse 96 02/16/18 21:00 Resp 16 02/16/18 21:00 BP 108/61 02/16/18 21:00 Pulse Ox 92 L 02/16/18 21:00 Intake & Output 02/16/18 02/16/18 02/17/18 06:59 18:59 06:59 Intake Total 755 Balance 755 Weight 65.77 kg 65.77 kg Intake: Oral 755 Other: Voiding Method Toilet Urinal Urinal # Voids 1 2 1 - Exam PHYSICAL EXAMINATION: Patient is lying in the bed comfortably, no acute distress, awake alert and oriented.. HEENT: Normocephalic. Neck is supple. Pupils reactive. Nostrils clear. Oral cavity is moist. Ears reveal no drainage. Neck reveals no JVD, carotid bruits, or thyromegaly. CHEST EXAMINATION: Trachea is central. Symmetrical expansion. Lung pichardo clear to auscultation and percussion. CARDIAC: Normal S1, S2 with no gallops. No murmurs ABDOMEN: Soft. Bowel sounds normal. No organomegaly. No abdominal bruits. Extremities: reveal no edema. No clubbing or cyanosis Neurologically awake, alert, oriented x3 with well-coordinated movements. No focal deficits noted Skin: No rash or skin lesions. Psychiatric: Coperative. Nonsuicidal Musculoskeletal: No joint swelling or deformity. Normal range of motion. - Labs CBC & Chem 7: 02/16/18 07:31 02/16/18 07:31 Labs: Abnormal Lab Results - Last 24 Hours (Table) 02/16/18 02/16/18 Range/Units 07:31 07:31 RBC 3.57 L (4.30-5.90) m/uL Hgb 10.0 L (13.0-17.5) gm/dL Hct 32.1 L (39.0-53.0) % RDW 16.3 H (11.5-15.5) % Sodium 136 L (137-145) mmol/L Glucose 107 H (74-99) mg/dL Assessment and Plan Assessment: Intractable nausea and vomiting.. No diarrhea. Improved now. Severe hypokalemia. Improved Recent history of C. diff colitis Severe COPD and chronic hypoxic respiratory failure on nausea cannula oxygen. history of Pseudomonas pneumonia and failed antibiotic therapy. Currently on inhaled tobramycin every other month as per ID Pulmonary fibrosis History of prostate cancer with radiation in 2007 and seed implants History of MRSA History of skin cancer remote from right forearm Hyperlipidemia Anxiety/depression Previous history of smoking Paroxysmal atrial fibrillation on anticoagulation Apixaban Generalized weakness and medical debility DVT prophylaxis Plan: Patient was given fluid bolus in the ER. Gentle hydration. Continue with potassium supplements and repeat potassium level. Continue the home medications and hold diuresis. Continue to monitor closely and continue the home medications as well. Further recommendations based on the clinical course. Prognosis is guarded with multiple medical problems and comorbid conditions.
[2018-02-17] MEDS: SODIUM CHLORIDE 0.9% 1,000 ML IV SCH ×2 (01:53→20:08)
[2018-02-17] MEDS: VERAPAMIL 40 MG TAB PO SCH ×3 (06:22→21:43)
[2018-02-17] MEDS: FAMOTIDINE 20 MG TAB PO SCH ×2 (08:20→20:35)
[2018-02-17] MEDS: POTASSIUM CHLORIDE ER 20 MEQ TAB.ER PO SCH ×2 (08:20→20:35)
[2018-02-17] MEDS: METOCLOPRAMIDE 5 MG/ML 2 ML VIAL IVP SCH ×2 (08:20→17:59)
[2018-02-17] MEDS: busPIRone HCl 5 MG TAB PO SCH ×2 (08:21→21:43)
[2018-02-17] MEDS: APIXABAN 2.5 MG TABLET PO SCH ×2 (08:21→20:35)
[2018-02-17] MEDS: METOPROLOL TARTRATE 12.5 MG TAB PO SCH (08:21)
[2018-02-17] MEDS: SYMBICORT 160-4.5 MCG INHALER INHALATION SCH ×2 (08:32→19:36)
[2018-02-17] MEDS: TOBRAMYCIN 300MG/7.5ML SYRG *FOR INHALATION INHALATION SCH ×2 (08:32→19:36)
[2018-02-17] MEDS: MULTIVITAMINS, THERA 1 EACH TAB PO SCH (12:14)
[2018-02-17] MEDS: TAMSULOSIN 0.4 MG CAP.ER.24H PO SCH (20:35)
[2018-02-17] MEDS: ACETAMINOPHEN TAB 325 MG TAB PO PRN (20:35)
[2018-02-17] MEDS: CITALOPRAM HYDROBROMIDE 20 MG TAB PO SCH (20:36)
[2018-02-17] MEDS: THEOPHYLLINE 24 HOUR 300 MG CAP.ER.24H PO SCH (21:43)
[2018-02-18] MEDS: ALPRAZolam 1 MG TAB PO SCH ×2 (01:18→20:52)
[2018-02-18] MEDS: METOCLOPRAMIDE 5 MG/ML 2 ML VIAL IVP SCH ×3 (01:21→15:52)
[2018-02-18] MEDS: VERAPAMIL 40 MG TAB PO SCH ×3 (05:22→20:52)
[2018-02-18] MEDS: SYMBICORT 160-4.5 MCG INHALER INHALATION SCH ×2 (08:16→20:01)
[2018-02-18] MEDS: TOBRAMYCIN 300MG/7.5ML SYRG *FOR INHALATION INHALATION SCH ×2 (08:16→20:01)
[2018-02-18] MEDS: busPIRone HCl 5 MG TAB PO SCH ×2 (09:32→20:52)
[2018-02-18] MEDS: FAMOTIDINE 20 MG TAB PO SCH ×2 (09:32→20:49)
[2018-02-18] MEDS: POTASSIUM CHLORIDE ER 20 MEQ TAB.ER PO SCH ×2 (09:32→20:49)
[2018-02-18] MEDS: APIXABAN 2.5 MG TABLET PO SCH ×2 (09:32→20:52)
[2018-02-18] MEDS: METOPROLOL TARTRATE 12.5 MG TAB PO SCH (09:32)
[2018-02-18] MEDS: MULTIVITAMINS, THERA 1 EACH TAB PO SCH (12:15)
[2018-02-18] MEDS: SODIUM CHLORIDE 0.9% 1,000 ML IV SCH (15:45)
[2018-02-18] MEDS: TAMSULOSIN 0.4 MG CAP.ER.24H PO SCH (20:52)
[2018-02-18] MEDS: THEOPHYLLINE 24 HOUR 300 MG CAP.ER.24H PO SCH (20:52)
[2018-02-18] MEDS: CITALOPRAM HYDROBROMIDE 20 MG TAB PO SCH (20:52)
[2018-02-19] MEDS: METOCLOPRAMIDE 5 MG/ML 2 ML VIAL IVP SCH ×2 (00:10→07:45)
--- NOTE | 2018-02-19 00:59 | P.PN ---
Subjective Progress Note Date: 02/17/18 Principal diagnosis: Nausea and vomiting Patient is 80-year-old male with a known history of COPD, history of prostate cancer status post radiation,hyperlipidemia and history of Pseudomonas pneumonia diagnosed some time in April 2017 and is currently maintained on inhaled tobramycin every other month as per ID recommendations came to ER with complaints of nausea and vomiting for the past 2-3 days. Patient was having nausea and vomiting and outpatient lab tests were done which showed potassium level of 2.6 at [facility]. Patient was recently treated for C. diff colitis and was transferred to rehabilitation. Patient was admitted to hospital for hypokalemia. Patient does take Lasix for lower extremities edema. Currently patient denied any complaints of abdominal pain. No fever no chills. Patient does have watery emesis. No chest pain no worsening shortness of breath. No cough or sputum production. EKG showed sinus tachycardia 02/14/2018 Patient feels slightly better today. Potassium level improved. Still not able to eat very well. Continued on IV hydration. No nausea or vomiting. No abdominal pain no diarrhea. No fever no chills. Patient has generalized weakness. 02/15/2018 Patient feels better today. Increase oral intake. IV fluid rate will be reducible. No nausea or vomiting. No diarrhea. No headache or dizziness. No chest pain or shortness of breath. 02/16/2018 Patient is tolerating oral diet. Otherwise patient did have a fall in the bathroom today. Patient says that his sleep and to the floor. Patient does have laceration on the forearm. Currently denied any pain. No complaints of chest pain or shortness of breath. No headache or dizziness or lightheadedness. [facility] 02/17/2018 Patient denied any new complaints today. Awaiting placement to infection care facility. Tolerating oral diet. Current medications reviewed Objective - Vital Signs Vital signs: Vital Signs Temp 97.6 F 02/18/18 20:45 Pulse 99 02/18/18 20:45 Resp 19 02/18/18 20:45 BP 110/54 02/18/18 20:45 Pulse Ox 93 L 02/18/18 20:45 Intake & Output 02/18/18 02/18/18 02/19/18 06:59 18:59 06:59 Intake Total 1180 540 Output Total 300 800 Balance 880 -260 Intake: Oral 1180 540 Output: Urine 300 800 Other: Voiding Method Urinal Urinal - Exam PHYSICAL EXAMINATION: Patient is lying in the bed comfortably, no acute distress, awake alert and oriented.. HEENT: Normocephalic. Neck is supple. Pupils reactive. Nostrils clear. Oral cavity is moist. Ears reveal no drainage. Neck reveals no JVD, carotid bruits, or thyromegaly. CHEST EXAMINATION: Trachea is central. Symmetrical expansion. Lung pichardo clear to auscultation and percussion. CARDIAC: Normal S1, S2 with no gallops. No murmurs ABDOMEN: Soft. Bowel sounds normal. No organomegaly. No abdominal bruits. Extremities: reveal no edema. No clubbing or cyanosis Neurologically awake, alert, oriented x3 with well-coordinated movements. No focal deficits noted Skin: No rash or skin lesions. Psychiatric: Coperative. Nonsuicidal Musculoskeletal: No joint swelling or deformity. Normal range of motion. - Labs CBC & Chem 7: 02/16/18 07:31 02/16/18 07:31 Assessment and Plan Assessment: Intractable nausea and vomiting.. No diarrhea. Improved now. Severe hypokalemia. Improved Recent history of C. diff colitis Severe COPD and chronic hypoxic respiratory failure on nausea cannula oxygen. history of Pseudomonas pneumonia and failed antibiotic therapy. Currently on inhaled tobramycin every other month as per ID Pulmonary fibrosis History of prostate cancer with radiation in 2007 and seed implants History of MRSA History of skin cancer remote from right forearm Hyperlipidemia Anxiety/depression Previous history of smoking Paroxysmal atrial fibrillation on anticoagulation Apixaban Generalized weakness and medical debility DVT prophylaxis Plan: Patient was given fluid bolus in the ER. Gentle hydration. Continue with potassium supplements and repeat potassium level. Continue the home medications and hold diuresis. Continue to monitor closely and continue the home medications as well. Further recommendations based on the clinical course. Prognosis is guarded with multiple medical problems and comorbid conditions.
--- NOTE | 2018-02-19 01:03 | P.PN ---
Subjective Progress Note Date: 02/18/18 Principal diagnosis: Nausea and vomiting Patient is 80-year-old male with a known history of COPD, history of prostate cancer status post radiation,hyperlipidemia and history of Pseudomonas pneumonia diagnosed some time in April 2017 and is currently maintained on inhaled tobramycin every other month as per ID recommendations came to ER with complaints of nausea and vomiting for the past 2-3 days. Patient was having nausea and vomiting and outpatient lab tests were done which showed potassium level of 2.6 at [facility]. Patient was recently treated for C. diff colitis and was transferred to rehabilitation. Patient was admitted to hospital for hypokalemia. Patient does take Lasix for lower extremities edema. Currently patient denied any complaints of abdominal pain. No fever no chills. Patient does have watery emesis. No chest pain no worsening shortness of breath. No cough or sputum production. EKG showed sinus tachycardia 02/14/2018 Patient feels slightly better today. Potassium level improved. Still not able to eat very well. Continued on IV hydration. No nausea or vomiting. No abdominal pain no diarrhea. No fever no chills. Patient has generalized weakness. 02/15/2018 Patient feels better today. Increase oral intake. IV fluid rate will be reducible. No nausea or vomiting. No diarrhea. No headache or dizziness. No chest pain or shortness of breath. 02/16/2018 Patient is tolerating oral diet. Otherwise patient did have a fall in the bathroom today. Patient says that his sleep and to the floor. Patient does have laceration on the forearm. Currently denied any pain. No complaints of chest pain or shortness of breath. No headache or dizziness or lightheadedness. Patient is agree[facility]. 02/17/2018 Patient denied any new complaints today. Awaiting placement to infection care facility. Tolerating oral diet. 02/18/2018 Denied any complains of chest pain or shortness of breath. Tolerating oral diet. No fever no chills. Blood pressure is stable. We will discontinue IV fluids and encouraged him oral intake.. formula room worker and rehabilitation caseworker will be following for placement to infection care facility. Current medications reviewed Objective - Vital Signs Vital signs: Vital Signs Temp 97.6 F 02/18/18 20:45 Pulse 99 02/18/18 20:45 Resp 19 02/18/18 20:45 BP 110/54 02/18/18 20:45 Pulse Ox 93 L 02/18/18 20:45 Intake & Output 02/18/18 02/18/18 02/19/18 06:59 18:59 06:59 Intake Total 1180 540 Output Total 300 600 Balance 880 -60 Intake: Oral 1180 540 Output: Urine 300 600 Other: Voiding Method Urinal - Exam PHYSICAL EXAMINATION: Patient is lying in the bed comfortably, no acute distress, awake alert and oriented.. HEENT: Normocephalic. Neck is supple. Pupils reactive. Nostrils clear. Oral cavity is moist. Ears reveal no drainage. Neck reveals no JVD, carotid bruits, or thyromegaly. CHEST EXAMINATION: Trachea is central. Symmetrical expansion. Lung pichardo clear to auscultation and percussion. CARDIAC: Normal S1, S2 with no gallops. No murmurs ABDOMEN: Soft. Bowel sounds normal. No organomegaly. No abdominal bruits. Extremities: reveal no edema. No clubbing or cyanosis Neurologically awake, alert, oriented x3 with well-coordinated movements. No focal deficits noted Skin: No rash or skin lesions. Psychiatric: Coperative. Nonsuicidal Musculoskeletal: No joint swelling or deformity. Normal range of motion. - Labs CBC & Chem 7: 02/16/18 07:31 02/16/18 07:31 Assessment and Plan Assessment: Intractable nausea and vomiting.. No diarrhea. Improved now. Severe hypokalemia. Improved Recent history of C. diff colitis Severe COPD and chronic hypoxic respiratory failure on nausea cannula oxygen. history of Pseudomonas pneumonia and failed antibiotic therapy. Currently on inhaled tobramycin every other month as per ID Pulmonary fibrosis History of prostate cancer with radiation in 2007 and seed implants History of MRSA History of skin cancer remote from right forearm Hyperlipidemia Anxiety/depression Previous history of smoking Paroxysmal atrial fibrillation on anticoagulation Apixaban Generalized weakness and medical debility DVT prophylaxis Plan: Patient was given fluid bolus in the ER. Gentle hydration. Continue with potassium supplements and repeat potassium level. Continue the home medications and hold diuresis. Continue to monitor closely and continue the home medications as well. Further recommendations based on the clinical course. Prognosis is guarded with multiple medical problems and comorbid conditions. Time with Patient: Greater than 30
[2018-02-19] MEDS: VERAPAMIL 40 MG TAB PO SCH ×2 (05:17→14:12)
[2018-02-19] MEDS: SYMBICORT 160-4.5 MCG INHALER INHALATION SCH (07:36)
[2018-02-19] MEDS: IPRATROPIUM-ALBUTEROL 3 ML NEB INHALATION PRN ×2 (07:37→11:27)
[2018-02-19] MEDS: FAMOTIDINE 20 MG TAB PO SCH (07:44)
[2018-02-19] MEDS: POTASSIUM CHLORIDE ER 20 MEQ TAB.ER PO SCH (07:44)
[2018-02-19] MEDS: APIXABAN 2.5 MG TABLET PO SCH (07:44)
[2018-02-19] MEDS: busPIRone HCl 5 MG TAB PO SCH (07:44)
[2018-02-19] MEDS: METOPROLOL TARTRATE 12.5 MG TAB PO SCH (07:47)
[2018-02-19] MEDS: TOBRAMYCIN 300MG/7.5ML SYRG *FOR INHALATION INHALATION SCH (07:57)
[2018-02-19 13:26] VITALS: BP 92/44; PULSE 88; RESP 17; TEMP 97.5
[2018-02-19] MEDS: MULTIVITAMINS, THERA 1 EACH TAB PO SCH (14:12)
--- NOTE | 2018-02-19 17:10 | P.DS ---
Providers Date of admission: 02/16/18 06:26 Attending physician: William Lehman MD Primary care physician: [facility] Course: Patient is 80-year-old male with a known history of COPD, history of prostate cancer status post radiation,hyperlipidemia and history of Pseudomonas pneumonia diagnosed some time in April 2017 and is currently maintained on inhaled tobramycin every other month as per ID recommendations came to ER with complaints of nausea and vomiting for 2-3 days. Patient was having nausea and vomiting and outpatient lab tests were done which showed potassium level of 2.6 at [facility]. Patient was recently treated for C. diff colitis and was transferred to rehabilitation. Patient was admitted to hospital for hypokalemia. Patient does take Lasix for lower extremities edema. Currently patient denied any complaints of abdominal pain. No fever no chills. Patient does have watery emesis. No chest pain no worsening shortness of breath. No cough or sputum production. Patient was treated with IV hydration, he showed interval improvement in his symptoms, patient returned to his baseline. Potassium is corrected normal at 4.7. Creatinine 0.6. Problems and management plan was discussed with the patient. Patient was found stable and can be discharged to [facility]. However he needs follow-up as an outpatient physical exam Gen.: Patient alert awake and oriented X 3, NOT IN DISTRESS CVS: s1-s2, RRR, no murmur CHEST:bilateral CTA, no wheezing or crepitation Abdomen: Soft, no tenderness, no distention, positive bowel sounds Extremities: No leg edema or induration Time spent more than 35 minutes Patient Condition at Discharge: Fair Plan - Discharge Summary Discharge Rx Participant: No New Discharge Prescriptions: Continue Tamsulosin [Flomax] 0.4 mg PO HS busPIRone HCl [Buspar] 5 mg PO BID Albuterol Nebulized [Ventolin Nebulized] 2.5 mg INHALATION RT-TID@05,13,21 Citalopram Hydrobromide [CeleXA] 40 mg PO HS Furosemide [Lasix] 40 mg PO DAILY Multivit-Min/FA/Lycopen/Lutein [Centrum Silver Tablet] 1 tab PO DAILY Theophylline 12 Hour [Yevgeniy-Dur] 300 mg PO BID diphenhydrAMINE [Benadryl] 25 mg PO HS Tiotropium [place] [Spiriva] 1 cap INHALATION RT-DAILY Apixaban [Eliquis] 2.5 mg PO BID tablet Metoprolol Tartrate [Lopressor] 12.5 mg PO DAILY tab Tobramycin INH 300 mg INHALATION RT-BID syringe ALPRAZolam [Xanax] 1 mg PO HS Famotidine [Pepcid] 20 mg PO BID@0800,1999 Fluticasone/Vilanterol [Breo Ellipta 200-25 Mcg INH] 1 puff INHALATION RT- DAILY Mylanta 15 ml PO Q4H PRN PRN Reason: Gi Upset Potassium Chloride ER [K-Dur 20] 20 meq PO BID@0800,1999 Verapamil [Isoptin] 40 mg PO TID@0500,1300,2100 Discharge Medication List Tamsulosin [Flomax] 0.4 mg PO HS 06/02/14 [History] busPIRone HCl [Buspar] 5 mg PO BID 02/24/17 [History] Albuterol Nebulized [Ventolin Nebulized] 2.5 mg INHALATION RT-TID@05,13,21 04/01 [History] Citalopram Hydrobromide [CeleXA] 40 mg PO HS 04/24/17 [History] Furosemide [Lasix] 40 mg PO DAILY 04/24/17 [History] Multivit-Min/FA/Lycopen/Lutein [Centrum Silver Tablet] 1 tab PO DAILY 04/24/17 [ History] Theophylline 12 Hour [Yevgeniy-Dur] 300 mg PO BID 01/04/18 [History] Tiotropium [place] [Spiriva] 1 cap INHALATION RT-DAILY 01/04/18 [History] diphenhydrAMINE [Benadryl] 25 mg PO HS 01/04/18 [History] Apixaban [Eliquis] 2.5 mg PO BID tablet 01/29/18 [Rx] Metoprolol Tartrate [Lopressor] 12.5 mg PO DAILY tab 01/29/18 [Rx] Tobramycin INH 300 mg INHALATION RT-BID syringe 01/29/18 [Rx] ALPRAZolam [Xanax] 1 mg PO HS 02/12/18 [History] Famotidine [Pepcid] 20 mg PO BID@0800,2000 02/12/18 [History] Fluticasone/Vilanterol [Breo Ellipta 200-25 Mcg INH] 1 puff INHALATION RT-DAILY 02/12/18 [History] Mylanta 15 ml PO Q4H PRN 02/12/18 [History] Potassium Chloride ER [K-Dur 20] 20 meq PO BID@0800,2000 02/12/18 [History] Verapamil [Isoptin] 40 mg PO TID@0500,1300,2100 02/12/18 [History] Follow up Appointment(s)/Referral(s): Lily Carolina MD [Primary Care Provider] - 1-2 days [facility], [NON-STAFF] - 1 Week Patient Instructions/Handouts: Hypokalemia (DC) Activity/Diet/Wound Care/Special Instructions: cardiac diet activity is limited till you see your doctor Discharge Disposition: TRANSFER TO SNF/ECF
== END 2018-02-19 17:20 | DRG 641 ==
LOC: EC 22:14 → 1SOBS 02-13 00:36 → 3NMEDONC 02-13 19:48 → OBSVTOIN 02-16 06:26
PROVIDERS: ADMIT Internal Medicine; ATTEND Internal Medicine
DX: E87.6 Hypokalemia (principal); J96.11 Chronic respiratory failure with hypoxia; J84.10 Pulmonary fibrosis, unspecified; I48.0 Paroxysmal atrial fibrillation; E86.0 Dehydration; D64.9 Anemia, unspecified; E78.5 Hyperlipidemia, unspecified; S51.819A Laceration without foreign body of unspecified forearm, initial encounter; J44.9 Chronic obstructive pulmonary disease, unspecified; H21.569 Pupillary abnormality, unspecified eye; F32.9 Major depressive disorder, single episode, unspecified; M50.30 Other cervical disc degeneration, unspecified cervical region; N42.9 Disorder of prostate, unspecified; F41.9 Anxiety disorder, unspecified; Z99.81 Dependence on supplemental oxygen; Z79.01 Long term (current) use of anticoagulants; Z79.51 Long term (current) use of inhaled steroids; Z79.899 Other long term (current) drug therapy; Z87.891 Personal history of nicotine dependence; Z87.01 Personal history of pneumonia (recurrent); Z86.19 Personal history of other infectious and parasitic diseases; Z86.14 Personal history of Methicillin resistant Staphylococcus aureus infection; Z90.49 Acquired absence of other specified parts of digestive tract; Z85.828 Personal history of other malignant neoplasm of skin; Z85.46 Personal history of malignant neoplasm of prostate; Z92.3 Personal history of irradiation; Z98.41 Cataract extraction status, right eye; Z80.8 Family history of malignant neoplasm of other organs or systems
CPT/HCPCS: 36415; 71045; 80048; 84132; 85025; 93005; 94640; 94760; 96361; 96374; 99285

== ENCOUNTER 2018-02-23 20:05 | Emergency (ER) | payer MEDICARE, OTHER ==
[2018-02-23 20:17] VITALS: RESP 19
[2018-02-23] MEDS ORDERED: ONDANSETRON 4 MG/2 ML VIAL IVP STA (20:49)
[2018-02-23] MEDS ORDERED: SODIUM CHLORIDE 0.9% 500 ML 500 ML IV STA (20:49)
--- NOTE | 2018-02-23 21:01 | ED ---
General Adult HPI - General Chief complaint: Nausea/Vomiting/Diarrhea Stated complaint: failure to thrive Time Seen by Provider: 02/23/18 20:10 Source: patient, EMS Mode of arrival: EMS Limitations: no limitations - History of Present Illness Initial comments: 82-year-old male patient with past medical history significant for end-stage COPD scheduled to enter hospice on Saturday, recent hypokalemia and C. diff infection presents to the emergency department today sent by staff at the extended care [facility] for an episode of vomiting and weakness. Patient reports he had one episode of vomiting. States he has felt weak and tired today. States he is scheduled to enter hospice on Saturday. Patient denies any fever or chills. Denies any abdominal pain. Denies any recent diarrhea. States he did complete treatment for C. diff. Patient denies any recent rash, shortness breath, chest pain, constipation, back pain, numbness, tingling, dizziness, weakness, hematuria, dysuria, urinary urgency, urinary frequency, headache, visual changes, or any other complaints. - Related Data Home Medications Medication Instructions Recorded Confirmed Tamsulosin [Flomax] 0.4 mg PO HS 06/02/14 02/12/18 busPIRone HCl [Buspar] 5 mg PO BID 02/24/17 02/12/18 Albuterol Nebulized [Ventolin 2.5 mg INHALATION RT-TID@,,04/01/17 Nebulized] Citalopram Hydrobromide [CeleXA] 40 mg PO HS 04/24/17 02/12/18 Furosemide [Lasix] 40 mg PO DAILY 04/24/17 02/12/18 Multivit-Min/FA/Lycopen/Lutein 1 tab PO DAILY 04/24/17 02/12/18 [Centrum Silver Tablet] Theophylline 12 Hour [Yevgeniy-Dur] 300 mg PO BID 01/04/18 02/12/18 Tiotropium [place] [Spiriva] 1 cap INHALATION RT-DAILY 01/04/18 02/12/18 diphenhydrAMINE [Benadryl] 25 mg PO HS 01/04/18 02/12/18 ALPRAZolam [Xanax] 1 mg PO HS 02/12/18 02/12/18 Famotidine [Pepcid] 20 mg PO BID@0800,199902/12/18 02/12/18 Fluticasone/Vilanterol [Breo 1 puff INHALATION RT-DAILY 02/12/18 02/12/18 Ellipta 200-25 Mcg INH] Mylanta 15 ml PO Q4H PRN 02/12/18 02/12/18 Potassium Chloride ER [K-Dur 20] 20 meq PO BID@0800,199902/12/18 02/12/18 Verapamil [Isoptin] 40 mg PO TID@0500,1300,2100 02/12/18 02/12/18 Previous Rx's Medication Instructions Recorded Apixaban [Eliquis] 2.5 mg PO BID tablet 01/29/18 Metoprolol Tartrate [Lopressor] 12.5 mg PO DAILY tab 01/29/18 Tobramycin INH 300 mg INHALATION RT-BID syringe 01/29/18 Levofloxacin [Levaquin] 750 mg PO DAILY #5 tab 02/23/18 Allergies Allergy/AdvReac Type Severity Reaction Status Date / Time No Known Allergies Allergy Verified 02/12/18 22:23 Review of Systems ROS Statement: Those systems with pertinent positive or pertinent negative responses have been documented in the HPI. ROS Other: All systems not noted in ROS Statement are negative. Past Medical History Past Medical History: Cancer, COPD, Hyperlipidemia, Pneumonia, Prostate Disorder Additional Past Medical History / Comment(s): bilateral pneumonia. COPD, pneumonia with sepsis, 2007 prostate cancer treated by radiation therapy, skin cancer with removal, normocytic anemia, cervical DDD. chronic irregular pupil size. 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 cataract removed from R eye. Past Anesthesia/Blood Transfusion Reactions: No Reported Reaction Past Psychological History: Anxiety, Depression Smoking Status: Former smoker Past Alcohol Use History: None Reported Past Drug Use History: None Reported - Past Family History Mother Family Medical History: No Reported History Father Family Medical History: Cancer Additional Family Medical History / Comment(s): spine CA which spread to bone CA General Exam Limitations: no limitations General appearance: alert, in no apparent distress, other (This is a well- developed, well-nourished elderly adult male patient in no acute distress. Vital signs upon presentation are temperature 101.6F, pulse 80, respirations 19 , blood pressure 121/60, pulse ox 96% on room air.) Eye exam: Present: normal appearance, PERRL, EOMI. Absent: scleral icterus, conjunctival injection, periorbital swelling ENT exam: Present: normal exam, normal oropharynx, mucous membranes moist Respiratory exam: Absent: normal lung sounds bilaterally, respiratory distress, wheezes, rales, rhonchi, stridor, decreased breath sounds Cardiovascular Exam: Present: normal rhythm, tachycardia, normal heart sounds. Absent: systolic murmur, diastolic murmur, rubs, gallop, clicks GI/Abdominal exam: Present: soft, normal bowel sounds. Absent: distended, tenderness, guarding, rebound, rigid Neurological exam: Present: alert, oriented X3, CN II-XII intact Psychiatric exam: Present: normal affect, normal mood Skin exam: Present: warm, dry, intact, normal color. Absent: rash Course Vital Signs 02/23/18 02/23/18 02/24/18 20:09 22:28 00:26 Temperature 101.6 F H 98.6 F 98.9 F Pulse Rate 80 106 H 103 H Respiratory 19 19 19 Rate Blood Pressure 121/60 125/59 128/80 O2 Sat by Pulse 96 97 96 Oximetry EKG Findings - EKG Comments: EKG Findings:: EKG obtained at 2316 shows sinus tachycardia with premature atrial complexes. Ventricular rate is 104, FL interval 144, QRS duration 88, QT 354, QTC 465. No evidence of ST elevation or depression. Medical Decision Making - Medical Decision Making 82-year-old male patient history of end-stage COPD scheduled to start hospice on Saturday presents to the emergency department today for evaluation after having an episode of vomiting. Patient is currently residing at [facility]. I did speak to staff at [facility] who states that his oxygen saturation was low, patient was weak today, he did have an episode of vomiting. He did have recent bout with hypokalemia syrup concerned this may be low again sent here for further evaluation. Upon arrival patient states he had one episode of vomiting but he now feels well. He denies any current nausea or abdominal pain. Physical examination is relatively unremarkable, abdomen is soft and nontender. He is febrile 101.6. Labs reviewed and did reveal elevated white blood cell count at 13.6. Chest x-ray did reveal small new right infiltrate in the right lower lobe. Patient also has evidence of mild urinary tract infection. We'll treat both of these with Levaquin. We discharged back to the extended care facility stating continue with his plan for hospice on Saturday. Return parameters were discussed in detail. Both patient and family verbalized understanding and agree with this plan. - Lab Data Result diagrams: 02/23/18 21:32 02/23/18 21:32 Lab Results 02/23/18 02/23/18 02/23/18 Range/Units 20:20 21:32 21:32 WBC 12.4 H (3.8-10.6) k/uL RBC 3.66 L (4.30-5.90) m/uL Hgb 9.9 L (13.0-17.5) gm/dL Hct 32.2 L (39.0-53.0) % MCV 88.0 (80.0-100.0) fL MCH 27.0 (25.0-35.0) pg MCHC 30.7 L (31.0-37.0) g/dL RDW 15.7 H (11.5-15.5) % Plt Count 341 (150-450) k/uL Neutrophils % 79 % Lymphocytes % 15 % Monocytes % 4 % Eosinophils % 0 % Basophils % 0 % Neutrophils # 9.8 H (1.3-7.7) k/uL Lymphocytes # 1.8 (1.0-4.8) k/uL Monocytes # 0.6 (0-1.0) k/uL Eosinophils # 0.0 (0-0.7) k/uL Basophils # 0.0 (0-0.2) k/uL Hypochromasia Slight Sodium 133 L (137-145) mmol/L Potassium 4.0 (3.5-5.1) mmol/L Chloride 93 L (98-107) mmol/L Carbon Dioxide 33 H (22-30) mmol/L Anion Gap 7 mmol/L BUN 22 H (9-20) mg/dL Creatinine 0.80 (0.66-1.25) mg/dL Est GFR (CKD-EPI)AfAm >90 (>60 ml/min/1.73 sqM) Est GFR (CKD-EPI)NonAf 84 (>60 ml/min/1.73 sqM) Glucose 111 H (74-99) mg/dL Plasma Lactic Acid Giovanni (0.7-2.0) mmol/L Calcium 8.4 (8.4-10.2) mg/dL Total Bilirubin 0.6 (0.2-1.3) mg/dL AST 19 (17-59) U/L ALT 42 (21-72) U/L Alkaline Phosphatase 77 (38-126) U/L Troponin I (0.000-0.034) ng/mL Total Protein 5.8 L (6.3-8.2) g/dL Albumin 2.7 L (3.5-5.0) g/dL Amylase 62 (30-110) U/L Lipase 73 (23-300) U/L Urine Color Yellow Urine Appearance Cloudy (Clear) Urine pH 6.5 (5.0-8.0) Ur Specific [place] 1.018 (1.001-1.035) Urine Protein 1+ H (Negative) Urine Glucose (UA) Negative (Negative) Urine Ketones 2+ H (Negative) Urine Blood Negative (Negative) Urine Nitrite Negative (Negative) Urine Bilirubin Negative (Negative) Urine Urobilinogen 2.0 (<2.0) mg/dL Ur Leukocyte Esterase Small H (Negative) Urine RBC 1 (0-5) /hpf Urine WBC 43 H (0-5) /hpf Hyaline Casts 8 H (0-2) /lpf Urine Mucus Many H (None) /hpf Influenza Type A RNA (Not Detectd) Influenza Type B (PCR) (Not Detectd) 02/23/18 02/23/18 02/23/18 Range/Units 21:32 21:32 21:32 WBC (3.8-10.6) k/uL RBC (4.30-5.90) m/uL Hgb (13.0-17.5) gm/dL Hct (39.0-53.0) % MCV (80.0-100.0) fL MCH (25.0-35.0) pg MCHC (31.0-37.0) g/dL RDW (11.5-15.5) % Plt Count (150-450) k/uL Neutrophils % % Lymphocytes % % Monocytes % % Eosinophils % % Basophils % % Neutrophils # (1.3-7.7) k/uL Lymphocytes # (1.0-4.8) k/uL Monocytes # (0-1.0) k/uL Eosinophils # (0-0.7) k/uL Basophils # (0-0.2) k/uL Hypochromasia Sodium (137-145) mmol/L Potassium (3.5-5.1) mmol/L Chloride (98-107) mmol/L Carbon Dioxide (22-30) mmol/L Anion Gap mmol/L BUN (9-20) mg/dL Creatinine (0.66-1.25) mg/dL Est GFR (CKD-EPI)AfAm (>60 ml/min/1.73 sqM) Est GFR (CKD-EPI)NonAf (>60 ml/min/1.73 sqM) Glucose (74-99) mg/dL Plasma Lactic Acid Giovanni 1.3 (0.7-2.0) mmol/L Calcium (8.4-10.2) mg/dL Total Bilirubin (0.2-1.3) mg/dL AST (17-59) U/L ALT (21-72) U/L Alkaline Phosphatase (38-126) U/L Troponin I <0.012 (0.000-0.034) ng/mL Total Protein (6.3-8.2) g/dL Albumin (3.5-5.0) g/dL Amylase (30-110) U/L Lipase (23-300) U/L Urine Color Urine Appearance (Clear) Urine pH (5.0-8.0) Ur Specific [place] (1.001-1.035) Urine Protein (Negative) Urine Glucose (UA) (Negative) Urine Ketones (Negative) Urine Blood (Negative) Urine Nitrite (Negative) Urine Bilirubin (Negative) Urine Urobilinogen (<2.0) mg/dL Ur Leukocyte Esterase (Negative) Urine RBC (0-5) /hpf Urine WBC (0-5) /hpf Hyaline Casts (0-2) /lpf Urine Mucus (None) /hpf Influenza Type A RNA Not Detected (Not Detectd) Influenza Type B (PCR) Not Detected (Not Detectd) - Radiology Data Radiology results: report reviewed, image reviewed Two-view x-ray of the chest is obtained. Report is reviewed in its entirety. Impression by Dr. Cristina shows moderate pulmonary fibrotic changes. There is probably some no infiltrate the lateral right lung base compared to last exam. No heart failure seen. Disposition Clinical Impression: Right lower lobe pneumonia, Urinary tract infection Disposition: HOME SELF-CARE Condition: Good Instructions: Urinary Tract Infection in Women (ED), Pneumonia (ED) Additional Instructions: Complete antibiotic prescription in full. Follow up with primary care physician for recheck in 1-2 days. Return immediately for any new, worsening, or concerning symptoms. Prescriptions: Levofloxacin [Levaquin] 750 mg PO DAILY #5 tab Is patient prescribed a controlled substance at d/c from ED?: No Referrals: Eugenio Bourgeois DO [Primary Care Provider] - 1-2 days Time of Disposition: 23:01
--- NOTE | 2018-02-23 21:27 | XR ---
EXAMINATION TYPE: XR chest 2V DATE OF EXAM: 02/23/2018 COMPARISON: 02/14/2018 HISTORY: Vomiting TECHNIQUE: Frontal and lateral views of the chest are obtained. FINDINGS: There is coarse interstitial density in both lungs. There is coalescent density in the low er lobes. There is slight blunting of the right costophrenic angle. Heart size is normal. There is no heart failure. Bony thorax is intact. IMPRESSION: Moderate pulmonary fibrotic changes. There is probably some new infiltrate at the latera l right lung base compared to last exam. No heart failure seen.
[2018-02-23 21:47] LABS: Basophils % (A) 0 %; Eosinophils % (A) 0 %; HCT 32.2 % (39.0-53.0); HGB 9.9 gm/dL (13.0-17.5); Hypochromasia Slight; Lymphocytes # (A) 1.8 k/uL (1.0-4.8); Lymphocytes % (A) 15 %; MCHC 30.7 g/dL (31.0-37.0); Mean Platelet Volume 6.8; Monocytes # (A) 0.6 k/uL (0-1.0); Monocytes % (A) 4 %; Neutrophils # (A) 9.8 k/uL (1.3-7.7); Neutrophils % (A) 79 %; Platelet Count 341 k/uL (150-450); RBC 3.66 m/uL (4.30-5.90); RDW 15.7 % (11.5-15.5); WBC 12.4 k/uL (3.8-10.6)
[2018-02-23 21:59] LABS: ALT 42 U/L (21-72); AST 19 U/L (17-59); Albumin 2.7 g/dL (3.5-5.0); Alkaline Phosphatase 77 U/L (38-126); Amylase 62 U/L (30-110); Anion Gap 7 mmol/L; Blood Urea Nitrogen 22 mg/dL (9-20); Calcium 8.4 mg/dL (8.4-10.2); Carbon Dioxide 33 mmol/L (22-30); Chloride 93 mmol/L (98-107); Glucose 111 mg/dL (74-99); Lipase 73 U/L (23-300); Sodium 133 mmol/L (137-145); Total Bilirubin 0.6 mg/dL (0.2-1.3); Total Protein 5.8 g/dL (6.3-8.2)
[2018-02-23 22:42] LABS: Appearance,Urine Cloudy (Clear); Bilirubin,Urine Negative (Negative); Blood,Urine Negative (Negative); Color,Urine Yellow; Glucose,Urine (UA) Negative (Negative); Hyaline Casts,Urine 8 /lpf (0-2); Ketones,Urine 2+ (Negative); Leukocyte Esterase,Urine Small (Negative); Mucus,Urine Many /hpf; Nitrite,Urine Negative (Negative); PH, Urine 6.5 (5.0-8.0); Protein,Urine 1+ (Negative); RBC,Urine 1 /hpf (0-5); Specific Gravity,Urine 1.018 (1.001-1.035); WBC,Urine 43 /hpf (0-5)
[2018-02-23] MEDS ORDERED: LEVOFLOXACIN 750 MG TAB PO STA (22:59)
[2018-02-24 00:29] VITALS: BP 128/80; PULSE 103; TEMP 98.9
== END 2018-02-24 00:28 | disposition home or self-care (01) ==
LOC: EC 20:05
DX: N39.0 Urinary tract infection, site not specified (principal); J18.1 Lobar pneumonia, unspecified organism; J44.0 Chronic obstructive pulmonary disease with (acute) lower respiratory infection; J84.10 Pulmonary fibrosis, unspecified; D72.829 Elevated white blood cell count, unspecified; R53.1 Weakness; R00.0 Tachycardia, unspecified; F32.9 Major depressive disorder, single episode, unspecified; F41.9 Anxiety disorder, unspecified; Z87.891 Personal history of nicotine dependence; Z79.51 Long term (current) use of inhaled steroids; Z79.899 Other long term (current) drug therapy; Z86.14 Personal history of Methicillin resistant Staphylococcus aureus infection; Z85.46 Personal history of malignant neoplasm of prostate; Z92.3 Personal history of irradiation; Z85.828 Personal history of other malignant neoplasm of skin; Z98.890 Other specified postprocedural states; Z87.39 Personal history of other diseases of the musculoskeletal system and connective tissue; Z96.0 Presence of urogenital implants; Z86.19 Personal history of other infectious and parasitic diseases
CPT/HCPCS: 36415; 93005; 80053; 82150; 83605; 83690; 84484; 85025; 81001; 87040; 87502; 71046; 99285; 96374; 96361; J2405